=== PATIENT | female | born 1945 | race African-American/Black ===

== ENCOUNTER 2018-01-14 18:05 | Inpatient (IN) | payer MEDICARE, OTHER ==
[~2018-01-14] VITALS: Ht 157.5 cm; Wt 93.2 kg
[~2018-01-14 18:05] MED LIST: ACET325T9 PO; ACET650T89 PO; ALBU18HF IH; ALBU8.5H8 INH; ALPR0.254 PO; BENZ14GE MM; CITA10TA4 PO; CYCL-331 PO; FLUT1DIS3 IH; MAG30ORA2 PO; MAGN400O7 PO; MAGN64TA6 PO; METF10002 PO; METF500T4 PO; NICO1PAT27 TD; OMEP20CA9 PO; ONDA4TAB10 PO; ONDA4TAB7 PO; PIOG15TA42 PO; RISP0.2519 PO; SERT100T PO; SERT50TA PO; TRAM50TA PO; ZOLP5TAB5 PO
--- NOTE | 2018-01-14 18:30 | EKG ---
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
--- NOTE | 2018-01-14 18:44 | PHYS DOC ---
Adult General Chief Complaint Chief Complaint: PSYCH EVALUATION HPI HPI 72-year-old female with a history of dementia skilled nursing patient now sent for evaluation of depression after having expressed suicidal ideation. Patient has stated to staff that she had a plan to cut her wrist. She did not actually do anything to hurt herself. She is not homicidal. Patient has no physical complaints. No Recent illness Review of Systems Review of Systems Constitutional: Denies fever or chills [] Eyes: Denies change in visual acuity, redness, or eye pain [] HENT: Denies nasal congestion or sore throat [] Respiratory: Denies cough or shortness of breath [] Cardiovascular: No additional information not addressed in HPI [] GI: Denies abdominal pain, nausea, vomiting, bloody stools or diarrhea [] : Denies dysuria or hematuria [] Musculoskeletal: Denies back pain or joint pain [] Integument: Denies rash or skin lesions [] Neurologic: Denies headache, focal weakness or sensory changes [] Endocrine: Denies polyuria or polydipsia [] All other systems were reviewed and found to be within normal limits, except as documented in this note. Allergies Allergies Allergies Coded Allergies Type Severity Reaction Last Updated Verified aspirin Allergy Intermediate 10/02/15 Yes Physical Exam Physical Exam Elderly chronically weak appearing female in no acute distress. She does have a depressed mood and flat affect. Mucous membranes are moist clear lungs regular rate and rhythm. Nontender abdomen normal extremities and a nonfocal neurologic exam. Constitutional: Well developed, well nourished, no acute distress, non-toxic appearance. [] HENT: Normocephalic, atraumatic, bilateral external ears normal, oropharynx moist, no oral exudates, nose normal. [] Eyes: PERRLA, EOMI, conjunctiva normal, no discharge. [] Neck: Normal range of motion, no tenderness, supple, no stridor. [] Cardiovascular:Heart rate regular rhythm, no murmur [] Lungs & Thorax: Bilateral breath sounds clear to auscultation [] Abdomen: Bowel sounds normal, soft, no tenderness, no masses, no pulsatile masses. [] Skin: Warm, dry, no erythema, no rash. [] Back: No tenderness, no CVA tenderness. [] Extremities: No tenderness, no cyanosis, no clubbing, ROM intact, 1+ nonpitting edema bilateral lower extremities with no asymmetry or tenderness Neurologic: Alert and oriented X 3, normal motor function, normal sensory function, no focal deficits noted. [] Psychologic: S mood and flat affect EKG EKG EKG with normal sinus rhythm at 69 left axis deviation and nonspecific ST and T- wave findings no STEMI interpreted by me Radiology/Procedures Radiology/Procedures [] Course & Med Decision Making Course & Med Decision Making Pertinent Labs and Imaging studies reviewed. (See chart for details) Patient with depression and suicidal ideation now sent for medical clearance for psychiatric evaluation. Well-appearing unremarkable exam. Medical clearance pending. Anticipate inpatient admission for psychiatric evaluation and treatment [] Endocrine E 33 and 1.2 consistent with prerenal azotemia. 1 L normal saline will be administered. Blood glucose mildly elevated at 2:30 consistent with patient's history of type 2 diabetes. After hydration no further workup or treatment will be indicated in the emergency department and patient be cleared for psychiatric evaluation Dragon Disclaimer Dragon Disclaimer This electronic medical record was generated, in whole or in part, using a voice recognition dictation system. Departure Departure: Impression: Primary Impression: Depression Additional Impressions: Suicidal ideation Prerenal azotemia Hyperglycemia Disposition: ADMITTED INPATIENT Admitting Physician: Other Condition: STABLE Referrals: JANEL ANGEL (PCP) Problem Qualifiers LARISSA NESS MD Jan 14, 2018 18:44
[2018-01-14 19:14] LABS: BASO % 0 % (0-3); EOS # 0.1 x10^3/uL (0.0-0.7); EOS % 1 % (0-3); HEMATOCRIT 31.1 % (36.0-47.0); HEMOGLOBIN 10.1 g/dL (12.0-15.5); LYMPH # 2.4 x10^3/uL (1.0-4.8); LYMPH % 30 % (24-48); MEAN CORPUSCULAR HEMOGLOBIN 27 pg (25-35); MEAN CORPUSCULAR HGB CONC 32 g/dL (31-37); MEAN CORPUSCULAR VOLUME 84 fL (79-100); MONO # 0.5 x10^3/uL (0.0-1.1); MONO % 7 % (0-9); NEUT % 62 % (31-73); PLATELET COUNT 266 x10^3/uL (140-400); RED BLOOD COUNT 3.72 x10^6/uL (3.50-5.40); RED CELL DISTRIBUTION WIDTH 17.1 % (11.5-14.5); WHITE BLOOD COUNT 8.1 x10^3/uL (4.0-11.0)
[2018-01-14 19:20] LABS: CALCIUM 9.2 mg/dL (8.5-10.1); CREATININE 1.2 mg/dL (0.6-1.0); GFR 53.4; POTASSIUM 4.8 mmol/L (3.5-5.1)
[2018-01-14 20:06] LABS: BILIRUBIN,URINE NEG (NEG); CLARITY,URINE CLEAR; COLOR,URINE STRAW; GLUCOSE,URINE NEG (NEG)
[2018-01-14 20:07] LABS: BACTERIA,URINE 0 /HPF (0-FEW); NITRITE,URINE NEG (NEG); RBC,URINE 0 /HPF (0-2); SQUAMOUS EPITHELIAL CELL,UR OCC /LPF; UROBILINOGEN,URINE 0.2 mg/dL (0.2 mg/dL)
[2018-01-14] MEDS ORDERED: ACETAMINOPHEN 325 MG TABLET PO ONE (20:15)
[2018-01-14] MEDS ORDERED: IV NORMAL SALINE 1,000ML 1,000 ML IV ONE (20:30)
[2018-01-14] MEDS ORDERED: NAPR-683 PO (21:34)
[2018-01-14] MEDS ORDERED: BUDE0.5A11 NEB (21:34)
[2018-01-14] MEDS ORDERED: HYDR25SU18 RC (21:34)
[2018-01-14] MEDS ORDERED: DEXT15DR5 OU (21:34)
[2018-01-14] MEDS ORDERED: GLIM1TAB PO (21:34)
[2018-01-14] MEDS ORDERED: AMLO10TA4 PO (21:34)
[2018-01-14] MEDS ORDERED: DICL100G18 TP (21:34)
[2018-01-14] MEDS ORDERED: NYST15PO9 TP (21:34)
[2018-01-14] MEDS ORDERED: HYDR30CR61 RC (21:34)
[2018-01-14] MEDS ORDERED: NITR0.4T SL (21:34)
[2018-01-14] MEDS ORDERED: ALPR0.5T6 PO (21:34)
[2018-01-14] MEDS ORDERED: ALBU2.5V5 NEB (21:34)
[2018-01-14] MEDS ORDERED: DICY10CA3 PO (21:34)
[2018-01-14] MEDS ORDERED: ACET325T9 PO (21:34)
[2018-01-14] MEDS ORDERED: ONDA4TAB11 PO (21:34)
[2018-01-14] MEDS ORDERED: FERR325T14 PO (21:34)
[2018-01-14] MEDS ORDERED: MELA1TAB2 PO (21:34)
[2018-01-14] MEDS ORDERED: LOPE2TAB27 PO (21:34)
[2018-01-14] MEDS ORDERED: GABA-586 PO (21:34)
[2018-01-14] MEDS ORDERED: LEVE500T56 PO (21:34)
[2018-01-14] MEDS ORDERED: DIPH25CA58 PO (21:34)
[2018-01-14] MEDS ORDERED: GUAI237L83 PO (21:35)
[2018-01-14] MEDS ORDERED: ASCO-78 PO (21:35)
[2018-01-14] MEDS ORDERED: OXYC-328 PO ×2 (21:35)
[2018-01-14] MEDS ORDERED: RANI150T6 PO (21:35)
[2018-01-15] MEDS ORDERED: PYRIDOXINE PO PRN
[2018-01-15] MEDS ORDERED: ACETAMINOPHEN 325 MG TABLET PO PRN
[2018-01-15] MEDS ORDERED: ALPRAZolam 0.25 MG TABLET PO PRN
[2018-01-15] MEDS ORDERED: MELATONIN PO PRN
[2018-01-15] MEDS ORDERED: MAG HYDROX/AL HYDROX/SIMETH 30 ML ORAL.SUSP PO PRN
[2018-01-15] MEDS ORDERED: MAGNESIUM HYDROXIDE 2,400 MG/30 ML ORAL.SUSP. PO PRN (00:15)
[2018-01-15] MEDS ORDERED: ALBUTEROL SULFATE 2.5 MG/3 ML NEBU. NEB PRN (00:15)
[2018-01-15] MEDS ORDERED: LOPERAMIDE 2 MG CAPSULE PO PRN (00:15)
[2018-01-15] MEDS ORDERED: BUDESONIDE 0.5 MG/2 ML NEBU NEB PRN (00:15)
[2018-01-15] MEDS ORDERED: guaiFENesin DM 200MG/20MG 10 ML SYRUP PO PRN (00:15)
[2018-01-15] MEDS ORDERED: NYSTATIN TOPICAL POWDER 15GM BOTTLE. TP PRN (00:15)
[2018-01-15] MEDS ORDERED: DICYCLOMINE HCL 10 MG CAPSULE PO PRN (00:15)
[2018-01-15] MEDS ORDERED: ONDANSETRON ODT 4 MG TAB.RAPDIS PO PRN (00:15)
[2018-01-15] MEDS ORDERED: HYDROCORTISONE ACETATE 25 MG SUPP.RECT RC PRN (00:15)
[2018-01-15] MEDS ORDERED: HYDROCORTISONE 2.5% RECTAL CREAM 30GM TUBE. RC PRN (00:15)
[2018-01-15] MEDS ORDERED: POLYVINYL ALCOHOL 1.4% OPHTH SOLUTION 15ML BOTTLE. OU PRN (00:15)
[2018-01-15] MEDS ORDERED: NITROGLYCERIN SUBLINGUAL 0.4 MG BOTTLE OF 25. SL PRN (00:15)
[2018-01-15 03:10] VITALS: BP 170/68
[2018-01-15 05:48] VITALS: BP 158/59
[2018-01-15] MEDS: PIOGLITAZONE 15 MG TABLET. PO SCH (08:48)
[2018-01-15] MEDS: oxyCODONE/APAP 10/325 1 TAB TABLET PO SCH ×2 (08:48→19:57)
[2018-01-15] MEDS: FAMOTIDINE 20 MG TABLET PO SCH ×2 (08:48→19:56)
[2018-01-15] MEDS: ALPRAZolam 0.5 MG TABLET PO SCH ×2 (08:48→19:57)
[2018-01-15] MEDS: amLODIPine BESYLATE 10 MG TABLET PO SCH (08:49)
[2018-01-15] MEDS: GLIMEPIRIDE 2 MG TABLET PO SCH (08:49)
[2018-01-15] MEDS: ASCORBIC ACID 500 MG TABLET PO SCH (08:49)
[2018-01-15] MEDS: FERROUS SULFATE 325 MG TABLET. PO SCH (08:50)
[2018-01-15] MEDS: GABAPENTIN 300 MG CAPSULE. PO SCH ×3 (08:50→19:56)
[2018-01-15] MEDS: SERTRALINE 100 MG TABLET. PO SCH (08:50)
[2018-01-15] MEDS: levETIRAcetam 500 MG TABLET PO SCH ×2 (08:50→19:56)
[2018-01-15 11:03] LABS: THYROID STIM HORMONE (TSH) 2.303 uIU/mL (0.358-3.740)
[2018-01-15 12:11] LABS: T3 TOTAL 69 ng/dL (71-180); THYROXINE 4.9 ug/dL (4.5-12.0)
[2018-01-15] MEDS: oxyCODONE/APAP 10/325 1 TAB TABLET PO PRN (13:59)
[2018-01-15 15:59] VITALS: BP 132/64
[2018-01-15] MEDS: MELATONIN 3 MG TABLET PO SCH (19:56)
[2018-01-15] MEDS: diphenhydrAMINE HCL 25 MG CAPSULE PO SCH (19:57)
--- NOTE | 2018-01-15 20:03 | PDOC ---
Exam Note: Neal Note: Please also refer to the separate dictated note~for this date of service dictated separately.~Patient seen individually. Discussed the patient with Nursing staff reviewed the chart.~Reviewed interim history and current functioning. Reviewed vital signs,~Labs/ Radiology~and current medications noted below. Continue current treatment with the changes noted in the dictated addendum note Assessment: Vital Signs: Vital Signs Date Time Temp Pulse Resp B/P (MAP) Pulse Ox O2 Delivery O2 Flow Rate FiO2 01/15/18 15:59 97.5 68 16 132/64 (86) 97 01/14/18 23:40 Room Air I&O Intake and Output 01/15/18 07:00 Intake Total 120 ml Balance 120 ml Intake Oral 120 ml Labs: Laboratory Tests Test 01/14/18 23:59 01/15/18 07:45 01/15/18 12:12 01/15/18 16:54 Magnesium Level 1.9 mg/dL (1.8-2.4) Iron Level 26 ug/dL (50-170) L Total Iron Binding Capacity 279 ug/dL (250-450) Iron Saturation 9 % (15-34) L Triglycerides Level 113 mg/dL (0-150) Cholesterol Level 147 mg/dL (0-200) LDL Cholesterol, Calculated 83 mg/dL (0-100) VLDL Cholesterol, Calculated 22 mg/dL (0-40) Non-HDL Cholesterol Calculated 105 mg/dL (0-129) HDL Cholesterol 42 mg/dL (40-60) Cholesterol/HDL Ratio 3.0 Thyroid Stimulating Hormone (TSH) 2.303 uIU/mL (0.358-3.740) Thyroxine (T4) 4.9 ug/dL (4.5-12.0) Total Triiodothyronine (TT3) 69 ng/dL (71-180) L Rapid Plasma Reagin Pending Glucose (Fingerstick) 92 mg/dL (70-99) 100 mg/dL (70-99) H 118 mg/dL (70-99) H Test 01/15/18 19:00 Glucose (Fingerstick) 128 mg/dL (70-99) H Current Medications: Meds: Current Medications Acetaminophen (Tylenol) 650 mg 1X ONCE PO Last administered on 01/14/18at 20:17 ; Start 01/14/18 at 20:15; Stop 01/14/18 at 20:16; Status DC Sodium Chloride 1,000 ml @ 1,000 mls/hr 1X ONCE IV Last administered on at 21:00; Start 01/14/18 at 20:30; Stop 01/14/18 at 21:29; Status DC Acetaminophen (Tylenol) 650 mg PRN Q6HRS PRN PO PAIN / TEMP; Start 01/15/18 at 00:00 Al Hydroxide/Mg Hydroxide (Mylanta Plus Xs) 15 ml PRN AFTMEALHC PRN PO DYSPEPSIA; Start 01/15/18 at 00:00 Magnesium Hydroxide (Milk Of Magnesia) 2,400 mg PRN QHS PRN PO CONSTIPATION; Start 01/15/18 at 00:00 Alprazolam (Xanax) 0.25 mg PRN Q8HRS PRN PO ANXIETY / AGITATION; Start 01/15/18 at 00:00 Alprazolam (Xanax) 0.5 mg BID PO Last administered on 01/15/18at 19:57; Start 01/15/18 at 09:00 Sertraline HCl (Zoloft) 150 mg DAILY PO Last administered on 01/15/18at 08:50; Start 01/15/18 at 09:00 Non-Formulary Medication (Melatonin/ Pyridoxine (Melatonin 5 Mg Tablet)) 5 mg PRN QHS PRN PO INSOMNIA; Start 01/15/18 at 00:00; Stop 01/15/18 at 04:40; Status DC Albuterol Sulfate (Ventolin) 2.5 mg PRN Q4HRS PRN NEB Dyspnea; Start 01/15/18 at 00:15 Amlodipine Besylate (Norvasc) 10 mg DAILY PO Last administered on 01/15/18at 08: 49; Start 01/15/18 at 09:00 Budesonide (Pulmicort) 0.5 mg PRN BID PRN NEB SHORTNESS OF BREATH; Start at 00:15 Diclofenac Sodium (Voltaren) 4 sam PRN QID PRN TP R Knee Pain; Start 01/15/18 at 00:15 Dicyclomine HCl (Bentyl) 10 mg PRN Q8HRS PRN PO Bowel Cramps; Start 01/15/18 at 00:15 Diphenhydramine HCl (Benadryl) 25 mg QHS PO Last administered on 01/15/18 19:57 ; Start 01/15/18 at 21:00 Ferrous Sulfate (Feosol) 325 mg DAILY PO Last administered on 01/15/18 08:50; Start 01/15/18 at 09:00 Gabapentin (Neurontin) 300 mg TID PO Last administered on 01/15/18 19:56; Start 01/15/18 at 09:00 Hydrocortisone (Proctosol-Hc) 1 sam PRN Q24HRS PRN RC Hemorrhoids; Start at 00:15 Hydrocortisone Acetate (Anucort-Hc) 25 mg PRN Q12HR PRN RC Hemorroids; Start at 00:15 Levetiracetam (Keppra) 500 mg BID PO Last administered on 01/15/18 19:56; Start 01/15/18 at 09:00 Magnesium Hydroxide (Milk Of Magnesia) 2,400 mg PRN QHS PRN PO CONSTIPATION; Start 01/15/18 at 00:15; Status UNV Nitroglycerin (Nitrostat) 0.4 mg PRN Q5MIN PRN SL CHEST PAIN; Start 01/15/18 at 00:15 Nystatin (Nystop) 1 sam PRN TID PRN TP REDNESS; Start 01/15/18 at 00:15 Oxycodone/ Acetaminophen (Percocet 10/325) 1 tab BID PO Last administered on 19:57; Start 01/15/18 at 09:00 Oxycodone/ Acetaminophen (Percocet 10/325) 1 tab PRN Q4HRS PRN PO PAIN Last administered on 01/15/18 13:59; Start 01/15/18 at 00:15 Pioglitazone HCl (Actos) 15 mg DAILYWBKFT PO Last administered on 01/15/18 08: 48; Start 01/15/18 at 08:00 Ascorbic Acid (Vitamin C) 500 mg DAILY PO Last administered on 01/15/18 08:49; Start 01/15/18 at 09:00 Artificial Tears (Artificial Tears) 1 drop PRN TID PRN OU DRY EYE; Start at 00:15 Glimepiride (Amaryl) 1 mg DAILY PO Last administered on 4/7/18at 08:49; Start 01/15/18 at 09:00 Guaifenesin (Robitussin Dm) 10 ml PRN Q4HRS PRN PO COUGH; Start 01/15/18 at 00: 15 Loperamide HCl (Imodium) 2 mg PRN Q4HRS PRN PO DIARRHEA; Start 01/15/18 at 00:15 Ondansetron HCl (Zofran Odt) 4 mg PRN Q4HRS PRN PO NAUSEA/VOMITING; Start at 00:15 Famotidine (Pepcid) 20 mg BID PO Last administered on 01/15/18at 19:56; Start 01/15/18 at 09:00 Melatonin 6 mg QHS PO Last administered on 01/15/18at 19:56; Start 01/15/18 at 21: 00 Active Scripts Active Reported Zantac (Ranitidine Hcl) 150 Mg Tablet 150 Mg PO BID Vitamin C (Ascorbate Calcium) 500 Mg Tablet 500 Mg PO DAILY Robitussin Cough-Chest Dm Liq (Guaifenesin/Dextromethorphan) 237 Ml Liquid 10 Ml PO PRN Q4HRS PRN Percocet 10-325 Mg Tablet (Oxycodone Hcl/Acetaminophen) 1 Each Tablet 1 Tab PO PRN Q4HRS PRN Percocet 10-325 Mg Tablet (Oxycodone Hcl/Acetaminophen) 1 Each Tablet 1 Tab PO BID Ondansetron Hcl 4 Mg Tablet 4 Mg PO PRN Q4HRS PRN Nystatin 15 Gm Powder 1 Sam TP PRN TID PRN Nitrostat (Nitroglycerin) 0.4 Mg Tab.subl 0.4 Mg SL PRN Q5MIN PRN MDD 3tabs Naprosyn (Naproxen) 500 Mg Tablet 500 Mg PO PRN Q12HR PRN Melatonin 5 Mg Tablet (Melatonin/Pyridoxine) 1 Each Tablet 5 Mg PO PRN QHS PRN Loperamide (Loperamide Hcl) 2 Mg Tablet 2 Mg PO PRN Q4HRS PRN MDD 16mg Keppra (Levetiracetam) 500 Mg Tablet 500 Mg PO BID Ferrous Sulfate 325 Mg Tablet 325 Mg PO DAILY Neurontin (Gabapentin) 300 Mg Capsule 300 Mg PO TID Voltaren (Diclofenac Sodium) 100 Gm Gel..gram. 4 Gm TP PRN QID PRN Budesonide 0.5 Mg/2 Ml Ampul.neb 0.5 Mg NEB PRN BID PRN Dicyclomine Hcl 10 Mg Capsule 10 Mg PO PRN Q8HRS PRN Benadryl (Diphenhydramine Hcl) 25 Mg Capsule 25 Mg PO QHS Artificial Tears Eye Drops (Dextran 70/Hypromellose) 15 Ml Drops 1 Drop OU TID PRN Anusol-Hc (Hydrocortisone Acetate) 25 Mg Supp.rect 25 Mg RC PRN Q12HR PRN Anusol-Hc (Hydrocortisone) 30 Gm Cream..g. 1 Sam RC PRN Q24HRS PRN Norvasc (Amlodipine Besylate) 10 Mg Tablet 10 Mg PO DAILY Amaryl (Glimepiride) 1 Mg Tablet 1 Mg PO DAILY Alprazolam 0.5 Mg Tablet 0.5 Mg PO BID Tylenol (Acetaminophen) 325 Mg Tablet 650 Mg PO PRN Q4HRS PRN Albuterol Sulfate Neb Soln (Albuterol Sulfate) 2.5 Mg/3 Ml Vial.neb 2.5 Mg NEB PRN Q4HRS PRN Zoloft (Sertraline Hcl) 100 Mg Tablet 150 Mg PO DAILY Milk Of Magnesia (Magnesium Hydroxide) 400 Mg/5 Ml Oral.susp 2,400 Mg PO PRN QHS PRN Alprazolam 0.25 Mg Tablet 0.25 Mg PO PRN Q8HRS PRN Actos (Pioglitazone Hcl) 15 Mg Tablet 15 Mg PO DAILYWBKFT I have reviewed the current psychotropics carefully including drug interactions. Risk benefit ratio favors no change other than as noted in my dictated progress note. Diagnosis: Problems: (1) Anxiety disorder (2) Impulse control disorder (3) Mild cognitive impairment (4) Major depressive disorder, recurrent episode BEA SAWANT MD Jan 15, 2018 20:03
--- NOTE | 2018-01-15 21:02 | HP ---
ADMIT DATE: 01/15/2018 This note covers elements not covered in my initial note 01/15/2018. The patient was seen individually evening of 01/15/2018. Discussed with nursing staff several times prior to the patient's admission and since her admission to gather background historical information resulting in this referral from [facility] on account of worsening symptoms of depression, hopelessness, helplessness, making suicidal ideation reported by the patient with a plan to overdose on pills or cut herself with a knife. The patient was seen individually evening of 01/15/2018. Discussed with nursing staff, reviewed the chart. CHIEF COMPLAINT: "I have been very depressed. I lost my mother and father. There is nothing to live for. I was thinking of committing suicide. I get forgetful." HISTORY OF PRESENT ILLNESS: The patient relates worsening symptoms of depression over the past few weeks. She admits to some sleep and appetite changes, feeling hopeless, helpless, worthless, somewhat paranoid, more confused with suicidal ideation with plan as noted above. She is also being extremely anxious. No clear history of bipolar disorder or homicidal ideation. PAST PSYCHIATRIC HISTORY: As noted above. PAST MEDICAL HISTORY: Positive for diabetes mellitus, hyperlipidemia, sleep apnea, hypertension, status post CVA, COPD, GERD, seizure disorder. Accu-Chek, a.c. and bedtime. Diet regular. ALLERGIES: ASPIRIN. Takes her medications whole. Ambulates, wheelchair or walker. UA negative. CURRENT PSYCHOTROPICS: Xanax 0.5 mg b.i.d. plus 0.25 mg q. 8 hours p.r.n., Zoloft 150 mg a day, melatonin 6 mg at bedtime, Keppra 500 mg b.i.d. for seizure disorder. FAMILY HISTORY: Noncontributory. 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 No alcohol, drug abuse, physical, sexual or elder abuse history is noted. Not known to be a perpetrator. REACTION TO HOSPITALIZATION: The patient accepting of it. ASSETS: Stable living at the [facility]. MENTAL STATUS EXAMINATION: The patient was seen individually evening of 01/15/2018. She appears quite depressed, withdrawn, anxious, restless, unable to answer questions about where she worked before she retired. Speech is otherwise coherent. Mood is depressed, anxious. Affect is mood congruent, short term memory is impaired. Attention span short, language function intact. Mood and affect depressed. She denies active suicidal ideation at this time. LABORATORY DATA: Reviewed. IMPRESSION: Major depressive disorder, recurrent, rule out psychotic features; anxiety disorder, unspecified; cognitive disorder, unspecified versus major neurocognitive disorder, early vascular with depression, delusion. Rest unchanged as noted above. PLAN: Admit to the [facility]iat[facility] Unit at [facility]. I will see the patient daily individually from a psychiatric standpoint. Medical followup per Dr. Mcguire/Dr Kolb. Continue the patient on her current psychotropics, Zoloft 150 mg a day, melatonin 6 mg at bedtime, Keppra 500 b.i.d., Xanax 0.5 b.i.d. plus p.r.n. Observe baseline, adjust further as clinically indicated. Consider Abilify as an augmentation for the Zoloft. BEA SAWANT MD DR: MARK/daphne JOB#: [id number] / [id number]
[2018-01-15 22:13] LABS: HEMOGLOBIN A1C 5.7 % (4.8-5.6)
--- NOTE | 2018-01-15 22:47 | PDOC ---
Exam Note: Neal Note: Please also refer to the separate dictated note~for this date of service dictated separately.~Patient seen individually. Discussed the patient with Nursing staff reviewed the chart.~Reviewed interim history and current functioning. Reviewed vital signs,~Labs/ Radiology~and current medications noted below. Continue current treatment with the changes noted in the dictated addendum note Assessment: Vital Signs: Vital Signs Date Time Temp Pulse Resp B/P (MAP) Pulse Ox O2 Delivery O2 Flow Rate FiO2 01/15/18 15:59 97.5 68 16 132/64 (86) 97 01/14/18 23:40 Room Air I&O Intake and Output 01/15/18 07:00 Intake Total 120 ml Balance 120 ml Intake Oral 120 ml Labs: Laboratory Tests Test 01/14/18 23:59 01/15/18 07:45 01/15/18 12:12 01/15/18 16:54 Hemoglobin A1c 5.7 % (4.8-5.6) H Magnesium Level 1.9 mg/dL (1.8-2.4) Iron Level 26 ug/dL (50-170) L Total Iron Binding Capacity 279 ug/dL (250-450) Iron Saturation 9 % (15-34) L Triglycerides Level 113 mg/dL (0-150) Cholesterol Level 147 mg/dL (0-200) LDL Cholesterol, Calculated 83 mg/dL (0-100) VLDL Cholesterol, Calculated 22 mg/dL (0-40) Non-HDL Cholesterol Calculated 105 mg/dL (0-129) HDL Cholesterol 42 mg/dL (40-60) Cholesterol/HDL Ratio 3.0 Thyroid Stimulating Hormone (TSH) 2.303 uIU/mL (0.358-3.740) Thyroxine (T4) 4.9 ug/dL (4.5-12.0) Total Triiodothyronine (TT3) 69 ng/dL (71-180) L Rapid Plasma Reagin Pending Glucose (Fingerstick) 92 mg/dL (70-99) 100 mg/dL (70-99) H 118 mg/dL (70-99) H Test 01/15/18 19:00 Glucose (Fingerstick) 128 mg/dL (70-99) H Current Medications: Meds: Current Medications Acetaminophen (Tylenol) 650 mg 1X ONCE PO Last administered on 01/14/18at 20:17 ; Start 01/14/18 at 20:15; Stop 01/14/18 at 20:16; Status DC Sodium Chloride 1,000 ml @ 1,000 mls/hr 1X ONCE IV Last administered on at 21:00; Start 01/14/18 at 20:30; Stop 01/14/18 at 21:29; Status DC Acetaminophen (Tylenol) 650 mg PRN Q6HRS PRN PO PAIN / TEMP; Start 01/15/18 at 00:00 Al Hydroxide/Mg Hydroxide (Mylanta Plus Xs) 15 ml PRN AFTMEALHC PRN PO DYSPEPSIA; Start 01/15/18 at 00:00 Magnesium Hydroxide (Milk Of Magnesia) 2,400 mg PRN QHS PRN PO CONSTIPATION; Start 01/15/18 at 00:00 Alprazolam (Xanax) 0.25 mg PRN Q8HRS PRN PO ANXIETY / AGITATION; Start 01/15/18 at 00:00 Alprazolam (Xanax) 0.5 mg BID PO Last administered on 01/15/18at 19:57; Start 01/15/18 at 09:00 Sertraline HCl (Zoloft) 150 mg DAILY PO Last administered on 01/15/18at 08:50; Start 01/15/18 at 09:00 Non-Formulary Medication (Melatonin/ Pyridoxine (Melatonin 5 Mg Tablet)) 5 mg PRN QHS PRN PO INSOMNIA; Start 01/15/18 at 00:00; Stop 01/15/18 at 04:40; Status DC Albuterol Sulfate (Ventolin) 2.5 mg PRN Q4HRS PRN NEB Dyspnea; Start 01/15/18 at 00:15 Amlodipine Besylate (Norvasc) 10 mg DAILY PO Last administered on 01/15/18at 08: 49; Start 01/15/18 at 09:00 Budesonide (Pulmicort) 0.5 mg PRN BID PRN NEB SHORTNESS OF BREATH; Start at 00:15 Diclofenac Sodium (Voltaren) 4 sam PRN QID PRN TP R Knee Pain; Start 01/15/18 at 00:15 Dicyclomine HCl (Bentyl) 10 mg PRN Q8HRS PRN PO Bowel Cramps; Start 01/15/18 at 00:15 Diphenhydramine HCl (Benadryl) 25 mg QHS PO Last administered on 01/15/18 19:57 ; Start 01/15/18 at 21:00 Ferrous Sulfate (Feosol) 325 mg DAILY PO Last administered on 01/15/18at 08:50; Start 01/15/18 at 09:00 Gabapentin (Neurontin) 300 mg TID PO Last administered on 01/15/18 19:56; Start 01/15/18 at 09:00 Hydrocortisone (Proctosol-Hc) 1 sam PRN Q24HRS PRN RC Hemorrhoids; Start at 00:15 Hydrocortisone Acetate (Anucort-Hc) 25 mg PRN Q12HR PRN RC Hemorroids; Start at 00:15 Levetiracetam (Keppra) 500 mg BID PO Last administered on 01/15/18 19:56; Start 01/15/18 at 09:00 Magnesium Hydroxide (Milk Of Magnesia) 2,400 mg PRN QHS PRN PO CONSTIPATION; Start 01/15/18 at 00:15; Status UNV Nitroglycerin (Nitrostat) 0.4 mg PRN Q5MIN PRN SL CHEST PAIN; Start 01/15/18 at 00:15 Nystatin (Nystop) 1 sam PRN TID PRN TP REDNESS; Start 01/15/18 at 00:15 Oxycodone/ Acetaminophen (Percocet 10/325) 1 tab BID PO Last administered on 19:57; Start 01/15/18 at 09:00 Oxycodone/ Acetaminophen (Percocet 10/325) 1 tab PRN Q4HRS PRN PO PAIN Last administered on 01/15/18 13:59; Start 01/15/18 at 00:15 Pioglitazone HCl (Actos) 15 mg DAILYWBKFT PO Last administered on 01/15/18at 08: 48; Start 01/15/18 at 08:00 Ascorbic Acid (Vitamin C) 500 mg DAILY PO Last administered on 01/15/18at 08:49; Start 01/15/18 at 09:00 Artificial Tears (Artificial Tears) 1 drop PRN TID PRN OU DRY EYE; Start at 00:15 Glimepiride (Amaryl) 1 mg DAILY PO Last administered on 01/15/18at 08:49; Start 01/15/18 at 09:00 Guaifenesin (Robitussin Dm) 10 ml PRN Q4HRS PRN PO COUGH; Start 01/15/18 at 00: 15 Loperamide HCl (Imodium) 2 mg PRN Q4HRS PRN PO DIARRHEA; Start 01/15/18 at 00:15 Ondansetron HCl (Zofran Odt) 4 mg PRN Q4HRS PRN PO NAUSEA/VOMITING; Start at 00:15 Famotidine (Pepcid) 20 mg BID PO Last administered on 01/15/18at 19:56; Start 01/15/18 at 09:00 Melatonin 6 mg QHS PO Last administered on 01/15/18at 19:56; Start 01/15/18 at 21: 00 Active Scripts Active Reported Zantac (Ranitidine Hcl) 150 Mg Tablet 150 Mg PO BID Vitamin C (Ascorbate Calcium) 500 Mg Tablet 500 Mg PO DAILY Robitussin Cough-Chest Dm Liq (Guaifenesin/Dextromethorphan) 237 Ml Liquid 10 Ml PO PRN Q4HRS PRN Percocet 10-325 Mg Tablet (Oxycodone Hcl/Acetaminophen) 1 Each Tablet 1 Tab PO PRN Q4HRS PRN Percocet 10-325 Mg Tablet (Oxycodone Hcl/Acetaminophen) 1 Each Tablet 1 Tab PO BID Ondansetron Hcl 4 Mg Tablet 4 Mg PO PRN Q4HRS PRN Nystatin 15 Gm Powder 1 Sam TP PRN TID PRN Nitrostat (Nitroglycerin) 0.4 Mg Tab.subl 0.4 Mg SL PRN Q5MIN PRN MDD 3tabs Naprosyn (Naproxen) 500 Mg Tablet 500 Mg PO PRN Q12HR PRN Melatonin 5 Mg Tablet (Melatonin/Pyridoxine) 1 Each Tablet 5 Mg PO PRN QHS PRN Loperamide (Loperamide Hcl) 2 Mg Tablet 2 Mg PO PRN Q4HRS PRN MDD 16mg Keppra (Levetiracetam) 500 Mg Tablet 500 Mg PO BID Ferrous Sulfate 325 Mg Tablet 325 Mg PO DAILY Neurontin (Gabapentin) 300 Mg Capsule 300 Mg PO TID Voltaren (Diclofenac Sodium) 100 Gm Gel..gram. 4 Gm TP PRN QID PRN Budesonide 0.5 Mg/2 Ml Ampul.neb 0.5 Mg NEB PRN BID PRN Dicyclomine Hcl 10 Mg Capsule 10 Mg PO PRN Q8HRS PRN Benadryl (Diphenhydramine Hcl) 25 Mg Capsule 25 Mg PO QHS Artificial Tears Eye Drops (Dextran 70/Hypromellose) 15 Ml Drops 1 Drop OU TID PRN Anusol-Hc (Hydrocortisone Acetate) 25 Mg Supp.rect 25 Mg RC PRN Q12HR PRN Anusol-Hc (Hydrocortisone) 30 Gm Cream..g. 1 Sam RC PRN Q24HRS PRN Norvasc (Amlodipine Besylate) 10 Mg Tablet 10 Mg PO DAILY Amaryl (Glimepiride) 1 Mg Tablet 1 Mg PO DAILY Alprazolam 0.5 Mg Tablet 0.5 Mg PO BID Tylenol (Acetaminophen) 325 Mg Tablet 650 Mg PO PRN Q4HRS PRN Albuterol Sulfate Neb Soln (Albuterol Sulfate) 2.5 Mg/3 Ml Vial.neb 2.5 Mg NEB PRN Q4HRS PRN Zoloft (Sertraline Hcl) 100 Mg Tablet 150 Mg PO DAILY Milk Of Magnesia (Magnesium Hydroxide) 400 Mg/5 Ml Oral.susp 2,400 Mg PO PRN QHS PRN Alprazolam 0.25 Mg Tablet 0.25 Mg PO PRN Q8HRS PRN Actos (Pioglitazone Hcl) 15 Mg Tablet 15 Mg PO DAILYWBKFT I have reviewed the current psychotropics carefully including drug interactions. Risk benefit ratio favors no change other than as noted in my dictated progress note. Diagnosis: Problems: (1) Depression (2) Hyperglycemia (3) Suicidal ideation (4) Anxiety disorder (5) Impulse control disorder (6) Major depressive disorder, recurrent episode (7) Mild cognitive impairment BEA SAWANT MD Jan 15, 2018 22:47
[2018-01-16 05:54] VITALS: BP 146/59
[2018-01-16] MEDS: FAMOTIDINE 20 MG TABLET PO SCH ×2 (07:41→20:02)
[2018-01-16] MEDS: levETIRAcetam 500 MG TABLET PO SCH ×2 (07:41→20:02)
[2018-01-16] MEDS: PIOGLITAZONE 15 MG TABLET. PO SCH (07:41)
[2018-01-16] MEDS: SERTRALINE 100 MG TABLET. PO SCH (07:42)
[2018-01-16] MEDS: GABAPENTIN 300 MG CAPSULE. PO SCH ×3 (07:42→20:02)
[2018-01-16] MEDS: amLODIPine BESYLATE 10 MG TABLET PO SCH (07:42)
[2018-01-16] MEDS: ASCORBIC ACID 500 MG TABLET PO SCH (07:43)
[2018-01-16] MEDS: FERROUS SULFATE 325 MG TABLET. PO SCH (07:43)
[2018-01-16] MEDS: ALPRAZolam 0.5 MG TABLET PO SCH ×2 (07:43→20:02)
[2018-01-16] MEDS: GLIMEPIRIDE 2 MG TABLET PO SCH (07:43)
[2018-01-16] MEDS: oxyCODONE/APAP 10/325 1 TAB TABLET PO SCH ×2 (07:45→20:01)
[2018-01-16] MEDS: DICLOFENAC SODIUM 1% TOPICAL GEL 100GM TUBE. TP PRN ×2 (09:49→10:20)
--- NOTE | 2018-01-16 12:43 | CONS ---
DATE OF CONSULTATION: 01/15/2018 REASON FOR CONSULTATION: Medical management. HISTORY OF PRESENT ILLNESS: The patient is a 72-year-old -Polish female patient, a resident at [facility], who was admitted on account of increased depression, increased anxiety, suicidal ideation with a plan overdose on pills or cut herself with a knife, all this in a background of major depressive disorder. On questioning her, she stated that her sons does not keep in touch with her, only her daughter. Her parents and two of her husbands has recently. She is also concerned that she was told that she has COPD and she never smoked, but said that her father, brother, and sister, all are heavy smokers. PAST MEDICAL HISTORY: Significant for diabetes mellitus, hyperlipidemia, obstructive sleep apnea, hypertension, CVA, COPD, gastroesophageal reflux disease and morbid obesity. PAST SURGICAL HISTORY: Significant for right total knee arthroplasty. ALLERGIES: She is allergic to ASPIRIN. MEDICATIONS: She is currently on following medications: She is on diphenhydramine 25 mg at bedtime, dicyclomine 10 mg every 8 hours, albuterol sulfate 2.5 mg in 3 mL by nebulizer every 4 hours, ferrous sulfate 325 mg daily, nitroglycerin 0.4 mg sublingually every 5 minutes, amlodipine besylate 10 mg once a day, diclofenac sodium 100 gram gel applied 4 grams topically 4 times a day as needed, naproxen 500 mg twice a day, oxycodone/APAP 10/325 one tablet twice a day, oxycodone/APAP 10/325 one tablet every 4 hours, acetaminophen 650 mg every 4 hours, gabapentin, Neurontin 300 mg 3 times a day, Keppra 500 mg twice a day, alprazolam 0.25 mg every 8 hours, alprazolam 0.5 mg twice a day, Robitussin-DM 10 mL every 4 hours as needed for cough, Pulmicort 0.5 mg 2 mL by nebulizer twice a day, artificial tears 1 drop to both eyes 3 times a day, loperamide 2 mg every 4 hours as needed, milk of magnesia 30 mL p.o. daily p.r.n. for constipation, ondansetron 4 mg every 4 hours, ranitidine 150 mg twice a day, glimepiride 1 mg daily, pioglitazone for Actos 15 mg at breakfast time. She is on hydrocortisone for Anusol cream applied topically rectally as needed, hydrocortisone acetate for nasal cream 25 mg rectally as needed every 12 hours, ascorbic acid 500 mg once a day and Melatonin/pyridoxine 5 mg as needed for insomnia. REVIEW OF SYSTEMS: As per history of present illness. PHYSICAL EXAMINATION GENERAL: When I examined her, she was sitting comfortably in her chair, in no apparent respiratory distress. She was definitely slightly pale, but no jaundice, cyanosis, or thyromegaly. No jugular venous distension. No limb edema. VITAL SIGNS: Her heart rate was 68, blood pressure 132/64, temperature was 97.5, respiratory rate was 16, and oxygen saturation was 97% on room air. HEAD, EYES, EARS, NOSE AND THROAT: Shows normocephalic and atraumatic. NECK: Supple. HEART: Showed normal first and second sounds. No gallop, rub or murmur. CHEST: Central trachea, equal bilateral expansion, air entry, second sounds, I could not appreciate any crepitation or few scattered rhonchi. ABDOMEN: Distended, soft, nontender. No guarding or rigidity. No organomegaly. All hernial orifices intact. Bowel sounds normal. NEUROLOGIC: She was awake, alert, responding appropriately. Cranial nerves intact. EXTREMITIES: She moves extremities without difficulty. She ambulates without assistance or assistive devices. LABORATORY DATA: Showed a white cell count of 8100, hemoglobin 10, hematocrit 31, MCV 84 and platelet count 266,000. Her chemistry showed a serum sodium 138, potassium 4.8, chloride 103, bicarbonate 28, anion gap of 7, BUN 33, creatinine 1.2, estimated GFR 53 mL per minute. Her glucose was 230, calcium was 9.2, magnesium was 1.2. Her serum iron was 26, TIBC was 279 and percent saturation was 9%. Her triglycerides 113, total cholesterol 147, LDL was 83, VLDL was 22, and HDL was 42, the ratio was 3. Her TSH was 2.303, total T4 was 4.9, total T3 was 69. Urinalysis was essentially unremarkable and serology showed RPR was pending. ASSESSMENT AND PLAN: In summary, this is a 72-year-old -Polish female patient, a resident at [facility], who was admitted on account of increased depression, increased anxiety, suicidal ideation with a plan to overdose on pills or cut herself with a knife. Medically, she is known to have hypertension, hyperlipidemia, morbid obesity, obstructive sleep apnea, hypertension, CVA, COPD, gastroesophageal reflux disease. Overall, the patient seems to be medically stable. I will follow all the other labs are still pending and make any necessary recommendation. Thank you, Dr. Gregory for allowing me to participate in the care. CALEB ALLEN MD DR: EMMA/daphne JOB#: [id number] / [id number]
[2018-01-16] MEDS: oxyCODONE/APAP 10/325 1 TAB TABLET PO PRN (13:33)
[2018-01-16 15:42] VITALS: BP 145/70
--- NOTE | 2018-01-16 17:06 | RAD ---
Three-view study of both knees Clinical indications: Bilateral knee pain with swelling. Right knee: Total right knee arthroplasty is evident which is well aligned. No acute fracture or osteolytic process is evident. No significant swelling of the suprapatellar bursa is seen to indicate joint effusion radiographically. 3 view left knee study: Total left knee arthroplasty is evident which is well aligned. No acute fracture or osteolytic process is seen. No significant swelling of the suprapatellar bursa is seen to indicate a joint effusion radiographically. IMPRESSION: Bilateral total knee arthroplasties. No acute fracture.
[2018-01-16] MEDS: MELATONIN 3 MG TABLET PO SCH (20:02)
[2018-01-16] MEDS: diphenhydrAMINE HCL 25 MG CAPSULE PO SCH (20:02)
--- NOTE | 2018-01-16 20:52 | PDOC ---
Exam Note: Neal Note: Please also refer to the separate dictated note~for this date of service dictated separately.~Patient seen individually. Discussed the patient with Nursing staff reviewed the chart.~Reviewed interim history and current functioning. Reviewed vital signs,~Labs/ Radiology~and current medications noted below. Continue current treatment with the changes noted in the dictated addendum note Assessment: Vital Signs: Vital Signs Date Time Temp Pulse Resp B/P (MAP) Pulse Ox O2 Delivery O2 Flow Rate FiO2 01/16/18 15:42 98.2 70 16 145/70 (95) 99 01/14/18 23:40 Room Air I&O Intake and Output 01/16/18 07:00 Intake Total 1320 ml Balance 1320 ml Intake Oral 1320 ml Labs: Laboratory Tests Test 01/16/18 07:10 Glucose (Fingerstick) 79 mg/dL (70-99) Current Medications: Meds: Current Medications Acetaminophen (Tylenol) 650 mg 1X ONCE PO Last administered on 01/14/18at 20:17 ; Start 01/14/18 at 20:15; Stop 01/14/18 at 20:16; Status DC Sodium Chloride 1,000 ml @ 1,000 mls/hr 1X ONCE IV Last administered on at 21:00; Start 01/14/18 at 20:30; Stop 01/14/18 at 21:29; Status DC Acetaminophen (Tylenol) 650 mg PRN Q6HRS PRN PO PAIN / TEMP; Start 01/15/18 at 00:00 Al Hydroxide/Mg Hydroxide (Mylanta Plus Xs) 15 ml PRN AFTMEALHC PRN PO DYSPEPSIA; Start 01/15/18 at 00:00 Magnesium Hydroxide (Milk Of Magnesia) 2,400 mg PRN QHS PRN PO CONSTIPATION; Start 01/15/18 at 00:00 Alprazolam (Xanax) 0.25 mg PRN Q8HRS PRN PO ANXIETY / AGITATION; Start 01/15/18 at 00:00 Alprazolam (Xanax) 0.5 mg BID PO Last administered on 01/16/18at 20:02; Start 01/15/18 at 09:00 Sertraline HCl (Zoloft) 150 mg DAILY PO Last administered on 01/16/18at 07:42; Start 01/15/18 at 09:00; Stop 01/16/18 at 16:24; Status DC Non-Formulary Medication (Melatonin/ Pyridoxine (Melatonin 5 Mg Tablet)) 5 mg PRN QHS PRN PO INSOMNIA; Start 01/15/18 at 00:00; Stop 01/15/18 at 04:40; Status DC Albuterol Sulfate (Ventolin) 2.5 mg PRN Q4HRS PRN NEB Dyspnea; Start 01/15/18 at 00:15 Amlodipine Besylate (Norvasc) 10 mg DAILY PO Last administered on 01/16/18at 07: 42; Start 01/15/18 at 09:00 Budesonide (Pulmicort) 0.5 mg PRN BID PRN NEB SHORTNESS OF BREATH; Start at 00:15 Diclofenac Sodium (Voltaren) 4 sam PRN QID PRN TP R Knee Pain Last administered on 01/16/18at 10:20; Start 01/15/18 at 00:15 Dicyclomine HCl (Bentyl) 10 mg PRN Q8HRS PRN PO Bowel Cramps; Start 01/15/18 at 00:15 Diphenhydramine HCl (Benadryl) 25 mg QHS PO Last administered on 01/16/18at 20:02 ; Start 01/15/18 at 21:00 Ferrous Sulfate (Feosol) 325 mg DAILY PO Last administered on 01/16/18at 07:43; Start 01/15/18 at 09:00 Gabapentin (Neurontin) 300 mg TID PO Last administered on 01/16/18at 20:02; Start 01/15/18 at 09:00 Hydrocortisone (Proctosol-Hc) 1 sam PRN Q24HRS PRN RC Hemorrhoids; Start at 00:15 Hydrocortisone Acetate (Anucort-Hc) 25 mg PRN Q12HR PRN RC Hemorroids; Start at 00:15 Levetiracetam (Keppra) 500 mg BID PO Last administered on 01/16/18at 20:02; Start 01/15/18 at 09:00 Magnesium Hydroxide (Milk Of Magnesia) 2,400 mg PRN QHS PRN PO CONSTIPATION; Start 01/15/18 at 00:15; Status UNV Nitroglycerin (Nitrostat) 0.4 mg PRN Q5MIN PRN SL CHEST PAIN; Start 01/15/18 at 00:15 Nystatin (Nystop) 1 sam PRN TID PRN TP REDNESS; Start 01/15/18 at 00:15 Oxycodone/ Acetaminophen (Percocet 10/325) 1 tab BID PO Last administered on 20:01; Start 01/15/18 at 09:00 Oxycodone/ Acetaminophen (Percocet 10/325) 1 tab PRN Q4HRS PRN PO PAIN Last administered on 01/16/18 13:33; Start 01/15/18 at 00:15 Pioglitazone HCl (Actos) 15 mg DAILYWBKFT PO Last administered on 01/16/18 07: 41; Start 01/15/18 at 08:00 Ascorbic Acid (Vitamin C) 500 mg DAILY PO Last administered on 01/16/18 07:43; Start 01/15/18 at 09:00 Artificial Tears (Artificial Tears) 1 drop PRN TID PRN OU DRY EYE; Start at 00:15 Glimepiride (Amaryl) 1 mg DAILY PO Last administered on 01/16/18 07:43; Start 01/15/18 at 09:00 Guaifenesin (Robitussin Dm) 10 ml PRN Q4HRS PRN PO COUGH; Start 01/15/18 at 00: 15 Loperamide HCl (Imodium) 2 mg PRN Q4HRS PRN PO DIARRHEA; Start 01/15/18 at 00:15 Ondansetron HCl (Zofran Odt) 4 mg PRN Q4HRS PRN PO NAUSEA/VOMITING; Start at 00:15 Famotidine (Pepcid) 20 mg BID PO Last administered on 01/16/18 20:02; Start 01/15/18 at 09:00 Melatonin 6 mg QHS PO Last administered on 01/16/18 20:02; Start 01/15/18 at 21: 00 Duloxetine HCl (Cymbalta) 30 mg DAILY PO ; Start 01/17/18 at 09:00; Stop at 23:30 Duloxetine HCl (Cymbalta) 60 mg DAILY PO ; Start 01/19/18 at 09:00 Active Scripts Active Reported Zantac (Ranitidine Hcl) 150 Mg Tablet 150 Mg PO BID Vitamin C (Ascorbate Calcium) 500 Mg Tablet 500 Mg PO DAILY Robitussin Cough-Chest Dm Liq (Guaifenesin/Dextromethorphan) 237 Ml Liquid 10 Ml PO PRN Q4HRS PRN Percocet 10-325 Mg Tablet (Oxycodone Hcl/Acetaminophen) 1 Each Tablet 1 Tab PO PRN Q4HRS PRN Percocet 10-325 Mg Tablet (Oxycodone Hcl/Acetaminophen) 1 Each Tablet 1 Tab PO BID Ondansetron Hcl 4 Mg Tablet 4 Mg PO PRN Q4HRS PRN Nystatin 15 Gm Powder 1 Sam TP PRN TID PRN Nitrostat (Nitroglycerin) 0.4 Mg Tab.subl 0.4 Mg SL PRN Q5MIN PRN MDD 3tabs Naprosyn (Naproxen) 500 Mg Tablet 500 Mg PO PRN Q12HR PRN Melatonin 5 Mg Tablet (Melatonin/Pyridoxine) 1 Each Tablet 5 Mg PO PRN QHS PRN Loperamide (Loperamide Hcl) 2 Mg Tablet 2 Mg PO PRN Q4HRS PRN MDD 16mg Keppra (Levetiracetam) 500 Mg Tablet 500 Mg PO BID Ferrous Sulfate 325 Mg Tablet 325 Mg PO DAILY Neurontin (Gabapentin) 300 Mg Capsule 300 Mg PO TID Voltaren (Diclofenac Sodium) 100 Gm Gel..gram. 4 Gm TP PRN QID PRN Budesonide 0.5 Mg/2 Ml Ampul.neb 0.5 Mg NEB PRN BID PRN Dicyclomine Hcl 10 Mg Capsule 10 Mg PO PRN Q8HRS PRN Benadryl (Diphenhydramine Hcl) 25 Mg Capsule 25 Mg PO QHS Artificial Tears Eye Drops (Dextran 70/Hypromellose) 15 Ml Drops 1 Drop OU TID PRN Anusol-Hc (Hydrocortisone Acetate) 25 Mg Supp.rect 25 Mg RC PRN Q12HR PRN Anusol-Hc (Hydrocortisone) 30 Gm Cream..g. 1 Sam RC PRN Q24HRS PRN Norvasc (Amlodipine Besylate) 10 Mg Tablet 10 Mg PO DAILY Amaryl (Glimepiride) 1 Mg Tablet 1 Mg PO DAILY Alprazolam 0.5 Mg Tablet 0.5 Mg PO BID Tylenol (Acetaminophen) 325 Mg Tablet 650 Mg PO PRN Q4HRS PRN Albuterol Sulfate Neb Soln (Albuterol Sulfate) 2.5 Mg/3 Ml Vial.neb 2.5 Mg NEB PRN Q4HRS PRN Zoloft (Sertraline Hcl) 100 Mg Tablet 150 Mg PO DAILY Milk Of Magnesia (Magnesium Hydroxide) 400 Mg/5 Ml Oral.susp 2,400 Mg PO PRN QHS PRN Alprazolam 0.25 Mg Tablet 0.25 Mg PO PRN Q8HRS PRN Actos (Pioglitazone Hcl) 15 Mg Tablet 15 Mg PO DAILYWBKFT I have reviewed the current psychotropics carefully including drug interactions. Risk benefit ratio favors no change other than as noted in my dictated progress note. Diagnosis: Problems: (1) Prerenal azotemia (2) Depression (3) Hyperglycemia (4) Suicidal ideation (5) Anxiety disorder (6) Impulse control disorder (7) Major depressive disorder, recurrent episode (8) Mild cognitive impairment BEA SAWANT MD Jan 16, 2018 20:52
--- NOTE | 2018-01-17 00:06 | PN ---
DATE: 01/16/2018 SUBJECTIVE: The patient was seen this morning at the request of the nursing staff as the patient has been complaining of pain in her right knee joint with muscle spasm. There was no history of fall or trauma. The patient has both her knee replaced years ago and has been able to ambulate with walker. She denied any chills, rigors or fever. Her past medical history is significant for diabetes mellitus, hyperlipidemia, obstructive sleep apnea, hypertension, COPD, gastroesophageal reflux disease and morbid obesity, obviously has also arthritis. No history of gout. PHYSICAL EXAMINATION: GENERAL: When I examined her, she looked well and was not really in any respiratory distress, slightly pale, but no jaundice or cyanosis. No lymphadenopathy, no thyromegaly. No jugular venous distension. No lower limb edema. VITAL SIGNS: Her heart rate was 69, blood pressure was 146/59, temperature was 97.1, respiratory rate was 18 and oxygen saturation was 98%. HEAD, EYES, EARS, NOSE AND THROAT: Showed normocephalic, atraumatic. NECK: Supple. HEART: Showed normal first and second heart sounds with no gallop, rub or murmur. CHEST: Clear to auscultation. No crepitation or rhonchi. ABDOMEN: Distended, soft, nontender. No guarding or rigidity. No organomegaly. All hernial orifice intact. Bowel sounds normal. NEUROLOGIC: She was awake, alert, responding appropriately. All cranial nerves intact. She moves extremities without difficulty. Examination of the right knee compared to the left showed there is no obvious redness or tenderness. She probably has effusion, although it is difficult to know given her size. LABORATORY DATA: As of yesterday, her most recent lab work showed a white cell count of 8000, hemoglobin 10, hematocrit 31, MCV 84 and platelet count of 266,000. Her chemistry showed a serum sodium 138, potassium 4.8, chloride 103, bicarbonate 28 and anion gap of 7. BUN 33, creatinine 1.2. Estimated GFR was 53 mL per minute. Her glucose 130, calcium was 9.2. ASSESSMENT: In summary, this is a 72-year-old -Chinese, who has new onset of pain in her right knee joint, which is basically a prosthetic and replaced years ago. There is no obvious deformity. No redness or tenderness. It is not hot to touch. PLAN: My plan is to arrange for her to have x-rays of both hip and knee joints. Repeat her labs including CBC, CMP, uric acid, sed rate and CRP and decide on further management accordingly. Medication mcneal, she is already on oxycodone 10/325. We will use diclofenac. She is already on diclofenac sodium for Voltaren gel, applied 4 times a day and once I have all the lab work, we will decide on further management accordingly. CALEB ALLEN MD DR: EMMA/daphne JOB#: [id number] / [id number]
[2018-01-17 06:18] VITALS: BP 138/57
[2018-01-17] MEDS: oxyCODONE/APAP 10/325 1 TAB TABLET PO PRN ×3 (06:41→16:37)
[2018-01-17] MEDS: oxyCODONE/APAP 10/325 1 TAB TABLET PO SCH ×3 (06:41→19:17)
[2018-01-17 07:36] LABS: HEMATOCRIT 28.2 % (36.0-47.0); HEMOGLOBIN 9.2 g/dL (12.0-15.5); RED BLOOD COUNT 3.38 x10^6/uL (3.50-5.40); RED CELL DISTRIBUTION WIDTH 17.9 % (11.5-14.5); WHITE BLOOD COUNT 7.4 x10^3/uL (4.0-11.0)
[2018-01-17 07:46] LABS: ALBUMIN 3.2 g/dL (3.4-5.0); ALBUMIN/GLOBULIN RATIO 0.8 (1.0-1.7); C REACTIVE PROTEIN 6.2 mg/L (0-3.3); CALCIUM 9.2 mg/dL (8.5-10.1); CREATININE 1.2 mg/dL (0.6-1.0); GFR 53.4; POTASSIUM 5.1 mmol/L (3.5-5.1); TOTAL BILIRUBIN 0.1 mg/dL (0.2-1.0); TOTAL PROTEIN 7.2 g/dL (6.4-8.2); URIC ACID 4.9 mg/dL (2.6-6.0)
[2018-01-17] MEDS: levETIRAcetam 500 MG TABLET PO SCH ×2 (08:37→19:15)
[2018-01-17] MEDS: ASCORBIC ACID 500 MG TABLET PO SCH (08:38)
[2018-01-17] MEDS: FERROUS SULFATE 325 MG TABLET. PO SCH (08:38)
[2018-01-17] MEDS: GABAPENTIN 300 MG CAPSULE. PO SCH ×3 (08:38→19:15)
[2018-01-17] MEDS: ALPRAZolam 0.5 MG TABLET PO SCH ×2 (08:38→19:17)
[2018-01-17] MEDS: GLIMEPIRIDE 2 MG TABLET PO SCH (08:38)
[2018-01-17] MEDS: PIOGLITAZONE 15 MG TABLET. PO SCH (08:38)
[2018-01-17] MEDS: FAMOTIDINE 20 MG TABLET PO SCH ×2 (08:38→19:15)
[2018-01-17] MEDS: amLODIPine BESYLATE 10 MG TABLET PO SCH (08:39)
[2018-01-17] MEDS: DULoxetine HCL 30 MG CAPSULE.DR PO SCH (08:41)
[2018-01-17] MEDS: MAGNESIUM HYDROXIDE 2,400 MG/30 ML ORAL.SUSP. PO PRN (09:06)
[2018-01-17] MEDS: DICLOFENAC SODIUM 1% TOPICAL GEL 100GM TUBE. TP PRN (09:42)
[2018-01-17 16:13] VITALS: BP 159/63
[2018-01-17] MEDS: diphenhydrAMINE HCL 25 MG CAPSULE PO SCH (19:15)
[2018-01-17] MEDS: MELATONIN 3 MG TABLET PO SCH (19:16)
[2018-01-17] MEDS: CELECOXIB 100 MG CAPSULE PO SCH (19:56)
--- NOTE | 2018-01-17 21:59 | PN ---
DATE: 01/16/2018 This is a late entry for 01/16/2018 covers elements not covered in my initial note of 01/16/2018. SUBJECTIVE: I met with the patient in the evening of 01/16/2018. She has been calm, cooperative the previous evening. Complains of pain in the hip, knee and right side of the neck, gets agitated with this. REVIEW OF SYSTEMS: Positive for the pain as noted. No CV, , pulmonary, eye system symptoms on review. MENTAL STATUS EXAM: Oriented to herself and situation. Speech has latency, often responses monosyllabic. Abstraction fair, computation impaired, language function intact, attention span short. Mood and affect still depressed, anxious. No suicidal ideation as questioned by me. LABORATORY DATA: Reviewed. IMPRESSION: Major depressive disorder with psychotic features. Rest unchanged. PLAN: Change Zoloft to Cymbalta 30 mg a day for 2 days, then 60 mg a day. Rest psychotropics unchanged. D3 and iron are low. Defer to Dr. Mcguire. MAN Farrah SAWANT MD DR: MARK/daphne JOB#: [id number] / [id number]
--- NOTE | 2018-01-17 22:02 | PDOC ---
Exam Note: Neal Note: Please also refer to the separate dictated note~for this date of service dictated separately.~Patient seen individually. Discussed the patient with Nursing staff reviewed the chart.~Reviewed interim history and current functioning. Reviewed vital signs,~Labs/ Radiology~and current medications noted below. Continue current treatment with the changes noted in the dictated addendum note Assessment: Vital Signs: Vital Signs Date Time Temp Pulse Resp B/P (MAP) Pulse Ox O2 Delivery O2 Flow Rate FiO2 01/17/18 16:13 97.5 81 18 159/63 (95) 99 01/14/18 23:40 Room Air I&O Intake and Output 01/17/18 07:00 Intake Total 1560 ml Balance 1560 ml Intake Oral 1560 ml # Voids 2 Labs: Laboratory Tests Test 01/17/18 07:08 01/17/18 07:38 01/17/18 07:58 White Blood Count 7.4 x10^3/uL (4.0-11.0) Red Blood Count 3.38 x10^6/uL (3.50-5.40) L Hemoglobin 9.2 g/dL (12.0-15.5) L Hematocrit 28.2 % (36.0-47.0) L Mean Corpuscular Volume 83 fL (79-100) Mean Corpuscular Hemoglobin 27 pg (25-35) Mean Corpuscular Hemoglobin Concent 33 g/dL (31-37) Red Cell Distribution Width 17.9 % (11.5-14.5) H Platelet Count 221 x10^3/uL (140-400) Erythrocyte Sedimentation Rate 55 (0-25) H Sodium Level 141 mmol/L (136-145) Potassium Level 5.1 mmol/L (3.5-5.1) Chloride Level 107 mmol/L (98-107) Carbon Dioxide Level 26 mmol/L (21-32) Anion Gap 8 (6-14) Blood Urea Nitrogen 40 mg/dL (7-20) H Creatinine 1.2 mg/dL (0.6-1.0) H Estimated GFR (Cockcroft-Gault) 53.4 BUN/Creatinine Ratio 33 (6-20) H Glucose Level 62 mg/dL (70-99) L Uric Acid 4.9 mg/dL (2.6-6.0) Calcium Level 9.2 mg/dL (8.5-10.1) Total Bilirubin 0.1 mg/dL (0.2-1.0) L Aspartate Amino Transferase (AST) 18 U/L (15-37) Alanine Aminotransferase (ALT) 29 U/L (14-59) Alkaline Phosphatase 94 U/L (46-116) C-Reactive Protein 6.2 mg/L (0-3.3) H Total Protein 7.2 g/dL (6.4-8.2) Albumin 3.2 g/dL (3.4-5.0) L Albumin/Globulin Ratio 0.8 (1.0-1.7) L Glucose (Fingerstick) 64 mg/dL (70-99) L 103 mg/dL (70-99) H Current Medications: Meds: Current Medications Acetaminophen (Tylenol) 650 mg 1X ONCE PO Last administered on 01/14/18at 20:17 ; Start 01/14/18 at 20:15; Stop 01/14/18 at 20:16; Status DC Sodium Chloride 1,000 ml @ 1,000 mls/hr 1X ONCE IV Last administered on at 21:00; Start 01/14/18 at 20:30; Stop 01/14/18 at 21:29; Status DC Acetaminophen (Tylenol) 650 mg PRN Q6HRS PRN PO PAIN / TEMP; Start 01/15/18 at 00:00 Al Hydroxide/Mg Hydroxide (Mylanta Plus Xs) 15 ml PRN AFTMEALHC PRN PO DYSPEPSIA; Start 01/15/18 at 00:00 Magnesium Hydroxide (Milk Of Magnesia) 2,400 mg PRN QHS PRN PO CONSTIPATION Last administered on 01/17/18at 09:06; Start 01/15/18 at 00:00 Alprazolam (Xanax) 0.25 mg PRN Q8HRS PRN PO ANXIETY / AGITATION; Start 01/15/18 at 00:00 Alprazolam (Xanax) 0.5 mg BID PO Last administered on 01/17/18at 19:17; Start 01/15/18 at 09:00 Sertraline HCl (Zoloft) 150 mg DAILY PO Last administered on 01/16/18at 07:42; Start 01/15/18 at 09:00; Stop 01/16/18 at 16:24; Status DC Non-Formulary Medication (Melatonin/ Pyridoxine (Melatonin 5 Mg Tablet)) 5 mg PRN QHS PRN PO INSOMNIA; Start 01/15/18 at 00:00; Stop 01/15/18 at 04:40; Status DC Albuterol Sulfate (Ventolin) 2.5 mg PRN Q4HRS PRN NEB Dyspnea; Start 01/15/18 at 00:15 Amlodipine Besylate (Norvasc) 10 mg DAILY PO Last administered on 01/17/18at 08: 39; Start 01/15/18 at 09:00 Budesonide (Pulmicort) 0.5 mg PRN BID PRN NEB SHORTNESS OF BREATH; Start at 00:15 Diclofenac Sodium (Voltaren) 4 sam PRN QID PRN TP R Knee Pain Last administered on 01/17/18at 09:42; Start 01/15/18 at 00:15 Dicyclomine HCl (Bentyl) 10 mg PRN Q8HRS PRN PO Bowel Cramps; Start 01/15/18 at 00:15 Diphenhydramine HCl (Benadryl) 25 mg QHS PO Last administered on 01/17/18 19:15 ; Start 01/15/18 at 21:00 Ferrous Sulfate (Feosol) 325 mg DAILY PO Last administered on 01/17/18at 08:38; Start 01/15/18 at 09:00 Gabapentin (Neurontin) 300 mg TID PO Last administered on 01/17/18at 19:15; Start 01/15/18 at 09:00 Hydrocortisone (Proctosol-Hc) 1 sam PRN Q24HRS PRN RC Hemorrhoids; Start at 00:15 Hydrocortisone Acetate (Anucort-Hc) 25 mg PRN Q12HR PRN RC Hemorroids; Start at 00:15 Levetiracetam (Keppra) 500 mg BID PO Last administered on 01/17/18at 19:15; Start 01/15/18 at 09:00 Magnesium Hydroxide (Milk Of Magnesia) 2,400 mg PRN QHS PRN PO CONSTIPATION; Start 01/15/18 at 00:15; Status UNV Nitroglycerin (Nitrostat) 0.4 mg PRN Q5MIN PRN SL CHEST PAIN; Start 01/15/18 at 00:15 Nystatin (Nystop) 1 sam PRN TID PRN TP REDNESS; Start 01/15/18 at 00:15 Oxycodone/ Acetaminophen (Percocet 10/325) 1 tab BID PO Last administered on 19:17; Start 01/15/18 at 09:00 Oxycodone/ Acetaminophen (Percocet 10/325) 1 tab PRN Q4HRS PRN PO PAIN Last administered on 01/17/18 16:37; Start 01/15/18 at 00:15 Pioglitazone HCl (Actos) 15 mg DAILYWBKFT PO Last administered on 01/17/18 08: 38; Start 01/15/18 at 08:00 Ascorbic Acid (Vitamin C) 500 mg DAILY PO Last administered on 01/17/18 08:38; Start 01/15/18 at 09:00 Artificial Tears (Artificial Tears) 1 drop PRN TID PRN OU DRY EYE; Start at 00:15 Glimepiride (Amaryl) 1 mg DAILY PO Last administered on 01/17/18 08:38; Start 01/15/18 at 09:00 Guaifenesin (Robitussin Dm) 10 ml PRN Q4HRS PRN PO COUGH; Start 01/15/18 at 00: 15 Loperamide HCl (Imodium) 2 mg PRN Q4HRS PRN PO DIARRHEA; Start 01/15/18 at 00:15 Ondansetron HCl (Zofran Odt) 4 mg PRN Q4HRS PRN PO NAUSEA/VOMITING; Start at 00:15 Famotidine (Pepcid) 20 mg BID PO Last administered on 01/17/18 19:15; Start 01/15/18 at 09:00 Melatonin 6 mg QHS PO Last administered on 01/17/18 19:16; Start 01/15/18 at 21: 00 Duloxetine HCl (Cymbalta) 30 mg DAILY PO Last administered on 01/17/18 08:41; Start 01/17/18 at 09:00; Stop 01/18/18 at 23:30 Duloxetine HCl (Cymbalta) 60 mg DAILY PO ; Start 01/19/18 at 09:00 Celecoxib (CeleBREX) 100 mg BID PO Last administered on 01/17/18at 19:56; Start 01/17/18 at 21:00 Active Scripts Active Reported Zantac (Ranitidine Hcl) 150 Mg Tablet 150 Mg PO BID Vitamin C (Ascorbate Calcium) 500 Mg Tablet 500 Mg PO DAILY Robitussin Cough-Chest Dm Liq (Guaifenesin/Dextromethorphan) 237 Ml Liquid 10 Ml PO PRN Q4HRS PRN Percocet 10-325 Mg Tablet (Oxycodone Hcl/Acetaminophen) 1 Each Tablet 1 Tab PO PRN Q4HRS PRN Percocet 10-325 Mg Tablet (Oxycodone Hcl/Acetaminophen) 1 Each Tablet 1 Tab PO BID Ondansetron Hcl 4 Mg Tablet 4 Mg PO PRN Q4HRS PRN Nystatin 15 Gm Powder 1 Sam TP PRN TID PRN Nitrostat (Nitroglycerin) 0.4 Mg Tab.subl 0.4 Mg SL PRN Q5MIN PRN MDD 3tabs Naprosyn (Naproxen) 500 Mg Tablet 500 Mg PO PRN Q12HR PRN Melatonin 5 Mg Tablet (Melatonin/Pyridoxine) 1 Each Tablet 5 Mg PO PRN QHS PRN Loperamide (Loperamide Hcl) 2 Mg Tablet 2 Mg PO PRN Q4HRS PRN MDD 16mg Keppra (Levetiracetam) 500 Mg Tablet 500 Mg PO BID Ferrous Sulfate 325 Mg Tablet 325 Mg PO DAILY Neurontin (Gabapentin) 300 Mg Capsule 300 Mg PO TID Voltaren (Diclofenac Sodium) 100 Gm Gel..gram. 4 Gm TP PRN QID PRN Budesonide 0.5 Mg/2 Ml Ampul.neb 0.5 Mg NEB PRN BID PRN Dicyclomine Hcl 10 Mg Capsule 10 Mg PO PRN Q8HRS PRN Benadryl (Diphenhydramine Hcl) 25 Mg Capsule 25 Mg PO QHS Artificial Tears Eye Drops (Dextran 70/Hypromellose) 15 Ml Drops 1 Drop OU TID PRN Anusol-Hc (Hydrocortisone Acetate) 25 Mg Supp.rect 25 Mg RC PRN Q12HR PRN Anusol-Hc (Hydrocortisone) 30 Gm Cream..g. 1 Sam RC PRN Q24HRS PRN Norvasc (Amlodipine Besylate) 10 Mg Tablet 10 Mg PO DAILY Amaryl (Glimepiride) 1 Mg Tablet 1 Mg PO DAILY Alprazolam 0.5 Mg Tablet 0.5 Mg PO BID Tylenol (Acetaminophen) 325 Mg Tablet 650 Mg PO PRN Q4HRS PRN Albuterol Sulfate Neb Soln (Albuterol Sulfate) 2.5 Mg/3 Ml Vial.neb 2.5 Mg NEB PRN Q4HRS PRN Zoloft (Sertraline Hcl) 100 Mg Tablet 150 Mg PO DAILY Milk Of Magnesia (Magnesium Hydroxide) 400 Mg/5 Ml Oral.susp 2,400 Mg PO PRN QHS PRN Alprazolam 0.25 Mg Tablet 0.25 Mg PO PRN Q8HRS PRN Actos (Pioglitazone Hcl) 15 Mg Tablet 15 Mg PO DAILYWBKFT I have reviewed the current psychotropics carefully including drug interactions. Risk benefit ratio favors no change other than as noted in my dictated progress note. Diagnosis: Problems: (1) Depression (2) Suicidal ideation (3) Anxiety disorder (4) Impulse control disorder (5) Major depressive disorder, recurrent episode (6) Mild cognitive impairment BEA SAWANT MD Jan 17, 2018 22:02
[2018-01-18 06:02] VITALS: BP 113/65
[2018-01-18] MEDS: GABAPENTIN 300 MG CAPSULE. PO SCH ×3 (08:11→19:23)
[2018-01-18] MEDS: FAMOTIDINE 20 MG TABLET PO SCH ×2 (08:11→19:23)
[2018-01-18] MEDS: levETIRAcetam 500 MG TABLET PO SCH ×2 (08:11→19:23)
[2018-01-18] MEDS: CELECOXIB 100 MG CAPSULE PO SCH ×2 (08:11→19:23)
[2018-01-18] MEDS: PIOGLITAZONE 15 MG TABLET. PO SCH (08:11)
[2018-01-18] MEDS: FERROUS SULFATE 325 MG TABLET. PO SCH (08:11)
[2018-01-18] MEDS: ASCORBIC ACID 500 MG TABLET PO SCH (08:12)
[2018-01-18] MEDS: amLODIPine BESYLATE 10 MG TABLET PO SCH (08:12)
[2018-01-18] MEDS: GLIMEPIRIDE 2 MG TABLET PO SCH (08:12)
[2018-01-18] MEDS: DULoxetine HCL 30 MG CAPSULE.DR PO SCH (08:12)
[2018-01-18] MEDS: oxyCODONE/APAP 10/325 1 TAB TABLET PO SCH ×2 (08:15→19:25)
[2018-01-18] MEDS: ALPRAZolam 0.5 MG TABLET PO SCH ×2 (08:15→19:25)
[2018-01-18] MEDS: oxyCODONE/APAP 10/325 1 TAB TABLET PO PRN (13:24)
--- NOTE | 2018-01-18 13:55 | PN ---
DATE: 01/17/2018 This is a late entry 01/17/2018 covers elements not covered in my initial note 01/17/2018. Met with the patient evening of 01/17/2018. The patient slept 6-1/2 hours previous evening. DICTATION ENDS HERE. MAN Farrah SAWANT MD DR: MARK/daphne JOB#: [id number] / [id number]
--- NOTE | 2018-01-18 13:58 | PN ---
DATE: 01/17/2018 PSYCHIATRIC PROGRESS NOTE This is a late entry 01/17/2018, covers elements not covered in my initial note 01/17/2018. SUBJECTIVE: I met with the patient the evening of 01/17/2018. The patient slept 6-1/2 hours previous evening. Complains of some ongoing chronic pain, started on Percocet per Dr. Mcguire and Celebrex. Denies active suicidal ideation, still depressed. REVIEW OF SYSTEMS: Positive for the pain. No CV, , pulmonary, eye system symptoms on review. MENTAL STATUS EXAM: Oriented to herself and situation. Speech moderate latency, often responses monosyllabic. Abstraction fair, computation impaired, language function intact, attention span short. Mood and affect remain somewhat depressed. LABORATORY DATA: Reviewed. IMPRESSION: Major depressive disorder with suicidal ideation latter in partial remission. Rest unchanged. PLAN: Continue psychotropics mentioned in my initial note. Increase the Cymbalta gradually. BEA SAWANT MD DR: MARK/daphne JOB#: [id number] / [id number]
[2018-01-18 15:41] VITALS: BP 130/66
[2018-01-18] MEDS: MELATONIN 3 MG TABLET PO SCH (19:22)
[2018-01-18] MEDS: diphenhydrAMINE HCL 25 MG CAPSULE PO SCH (19:23)
--- NOTE | 2018-01-18 20:51 | PDOC ---
Exam Note: Neal Note: Please also refer to the separate dictated note~for this date of service dictated separately.~Patient seen individually. Discussed the patient with Nursing staff reviewed the chart.~Reviewed interim history and current functioning. Reviewed vital signs,~Labs/ Radiology~and current medications noted below. Continue current treatment with the changes noted in the dictated addendum note Assessment: Vital Signs: Vital Signs Date Time Temp Pulse Resp B/P (MAP) Pulse Ox O2 Delivery O2 Flow Rate FiO2 01/18/18 15:41 98.0 85 20 130/66 (87) 98 01/14/18 23:40 Room Air I&O Intake and Output 01/18/18 07:00 Intake Total 1680 ml Balance 1680 ml Intake Oral 1680 ml # Voids 2 Labs: Laboratory Tests Test 01/18/18 07:03 01/18/18 19:33 Glucose (Fingerstick) 64 mg/dL (70-99) L 151 mg/dL (70-99) H Current Medications: Meds: Current Medications Acetaminophen (Tylenol) 650 mg 1X ONCE PO Last administered on 01/14/18at 20:17 ; Start 01/14/18 at 20:15; Stop 01/14/18 at 20:16; Status DC Sodium Chloride 1,000 ml @ 1,000 mls/hr 1X ONCE IV Last administered on 21:00; Start 01/14/18 at 20:30; Stop 01/14/18 at 21:29; Status DC Acetaminophen (Tylenol) 650 mg PRN Q6HRS PRN PO PAIN / TEMP; Start 01/15/18 at 00:00 Al Hydroxide/Mg Hydroxide (Mylanta Plus Xs) 15 ml PRN AFTMEALHC PRN PO DYSPEPSIA; Start 01/15/18 at 00:00 Magnesium Hydroxide (Milk Of Magnesia) 2,400 mg PRN QHS PRN PO CONSTIPATION Last administered on 01/17/18at 09:06; Start 01/15/18 at 00:00 Alprazolam (Xanax) 0.25 mg PRN Q8HRS PRN PO ANXIETY / AGITATION Last administered on 01/18/18at 10:50; Start 01/15/18 at 00:00 Alprazolam (Xanax) 0.5 mg BID PO Last administered on 01/18/18at 19:25; Start at 09:00 Sertraline HCl (Zoloft) 150 mg DAILY PO Last administered on 01/16/18 07:42; Start 01/15/18 at 09:00; Stop 01/16/18 at 16:24; Status DC Non-Formulary Medication (Melatonin/ Pyridoxine (Melatonin 5 Mg Tablet)) 5 mg PRN QHS PRN PO INSOMNIA; Start 01/15/18 at 00:00; Stop 01/15/18 at 04:40; Status DC Albuterol Sulfate (Ventolin) 2.5 mg PRN Q4HRS PRN NEB Dyspnea; Start 01/15/18 at 00:15 Amlodipine Besylate (Norvasc) 10 mg DAILY PO Last administered on 01/18/18at 08: 12; Start 01/15/18 at 09:00 Budesonide (Pulmicort) 0.5 mg PRN BID PRN NEB SHORTNESS OF BREATH; Start at 00:15 Diclofenac Sodium (Voltaren) 4 sam PRN QID PRN TP R Knee Pain Last administered on 01/17/18at 09:42; Start 01/15/18 at 00:15 Dicyclomine HCl (Bentyl) 10 mg PRN Q8HRS PRN PO Bowel Cramps; Start 01/15/18 at 00:15 Diphenhydramine HCl (Benadryl) 25 mg QHS PO Last administered on 01/18/18 19: 23; Start 01/15/18 at 21:00 Ferrous Sulfate (Feosol) 325 mg DAILY PO Last administered on 01/18/18at 08:11; Start 01/15/18 at 09:00 Gabapentin (Neurontin) 300 mg TID PO Last administered on 01/18/18 19:23; Start 01/15/18 at 09:00 Hydrocortisone (Proctosol-Hc) 1 sam PRN Q24HRS PRN RC Hemorrhoids; Start at 00:15 Hydrocortisone Acetate (Anucort-Hc) 25 mg PRN Q12HR PRN RC Hemorroids; Start at 00:15 Levetiracetam (Keppra) 500 mg BID PO Last administered on 01/18/18 19:23; Start 01/15/18 at 09:00 Magnesium Hydroxide (Milk Of Magnesia) 2,400 mg PRN QHS PRN PO CONSTIPATION; Start 01/15/18 at 00:15; Status UNV Nitroglycerin (Nitrostat) 0.4 mg PRN Q5MIN PRN SL CHEST PAIN; Start 01/15/18 at 00:15 Nystatin (Nystop) 1 sam PRN TID PRN TP REDNESS; Start 01/15/18 at 00:15 Oxycodone/ Acetaminophen (Percocet 10/325) 1 tab BID PO Last administered on 19:25; Start 01/15/18 at 09:00 Oxycodone/ Acetaminophen (Percocet 10/325) 1 tab PRN Q4HRS PRN PO PAIN Last administered on 01/18/18 13:24; Start 01/15/18 at 00:15 Pioglitazone HCl (Actos) 15 mg DAILYWBKFT PO Last administered on 01/18/18at 08: 11; Start 01/15/18 at 08:00 Ascorbic Acid (Vitamin C) 500 mg DAILY PO Last administered on 01/18/18at 08:12 ; Start 01/15/18 at 09:00 Artificial Tears (Artificial Tears) 1 drop PRN TID PRN OU DRY EYE; Start at 00:15 Glimepiride (Amaryl) 1 mg DAILY PO Last administered on 01/18/18at 08:12; Start 01/15/18 at 09:00 Guaifenesin (Robitussin Dm) 10 ml PRN Q4HRS PRN PO COUGH; Start 01/15/18 at 00: 15 Loperamide HCl (Imodium) 2 mg PRN Q4HRS PRN PO DIARRHEA; Start 01/15/18 at 00:15 Ondansetron HCl (Zofran Odt) 4 mg PRN Q4HRS PRN PO NAUSEA/VOMITING; Start at 00:15 Famotidine (Pepcid) 20 mg BID PO Last administered on 01/18/18 19:23; Start at 09:00 Melatonin 6 mg QHS PO Last administered on 01/18/18 19:22; Start 01/15/18 at 21 :00 Duloxetine HCl (Cymbalta) 30 mg DAILY PO Last administered on 01/18/18at 08:12; Start 01/17/18 at 09:00; Stop 01/18/18 at 23:30 Duloxetine HCl (Cymbalta) 60 mg DAILY PO ; Start 01/19/18 at 09:00 Celecoxib (CeleBREX) 100 mg BID PO Last administered on 01/18/18at 19:23; Start 01/17/18 at 21:00 Active Scripts Active Reported Zantac (Ranitidine Hcl) 150 Mg Tablet 150 Mg PO BID Vitamin C (Ascorbate Calcium) 500 Mg Tablet 500 Mg PO DAILY Robitussin Cough-Chest Dm Liq (Guaifenesin/Dextromethorphan) 237 Ml Liquid 10 Ml PO PRN Q4HRS PRN Percocet 10-325 Mg Tablet (Oxycodone Hcl/Acetaminophen) 1 Each Tablet 1 Tab PO PRN Q4HRS PRN Percocet 10-325 Mg Tablet (Oxycodone Hcl/Acetaminophen) 1 Each Tablet 1 Tab PO BID Ondansetron Hcl 4 Mg Tablet 4 Mg PO PRN Q4HRS PRN Nystatin 15 Gm Powder 1 Sam TP PRN TID PRN Nitrostat (Nitroglycerin) 0.4 Mg Tab.subl 0.4 Mg SL PRN Q5MIN PRN MDD 3tabs Naprosyn (Naproxen) 500 Mg Tablet 500 Mg PO PRN Q12HR PRN Melatonin 5 Mg Tablet (Melatonin/Pyridoxine) 1 Each Tablet 5 Mg PO PRN QHS PRN Loperamide (Loperamide Hcl) 2 Mg Tablet 2 Mg PO PRN Q4HRS PRN MDD 16mg Keppra (Levetiracetam) 500 Mg Tablet 500 Mg PO BID Ferrous Sulfate 325 Mg Tablet 325 Mg PO DAILY Neurontin (Gabapentin) 300 Mg Capsule 300 Mg PO TID Voltaren (Diclofenac Sodium) 100 Gm Gel..gram. 4 Gm TP PRN QID PRN Budesonide 0.5 Mg/2 Ml Ampul.neb 0.5 Mg NEB PRN BID PRN Dicyclomine Hcl 10 Mg Capsule 10 Mg PO PRN Q8HRS PRN Benadryl (Diphenhydramine Hcl) 25 Mg Capsule 25 Mg PO QHS Artificial Tears Eye Drops (Dextran 70/Hypromellose) 15 Ml Drops 1 Drop OU TID PRN Anusol-Hc (Hydrocortisone Acetate) 25 Mg Supp.rect 25 Mg RC PRN Q12HR PRN Anusol-Hc (Hydrocortisone) 30 Gm Cream..g. 1 Sam RC PRN Q24HRS PRN Norvasc (Amlodipine Besylate) 10 Mg Tablet 10 Mg PO DAILY Amaryl (Glimepiride) 1 Mg Tablet 1 Mg PO DAILY Alprazolam 0.5 Mg Tablet 0.5 Mg PO BID Tylenol (Acetaminophen) 325 Mg Tablet 650 Mg PO PRN Q4HRS PRN Albuterol Sulfate Neb Soln (Albuterol Sulfate) 2.5 Mg/3 Ml Vial.neb 2.5 Mg NEB PRN Q4HRS PRN Zoloft (Sertraline Hcl) 100 Mg Tablet 150 Mg PO DAILY Milk Of Magnesia (Magnesium Hydroxide) 400 Mg/5 Ml Oral.susp 2,400 Mg PO PRN QHS PRN Alprazolam 0.25 Mg Tablet 0.25 Mg PO PRN Q8HRS PRN Actos (Pioglitazone Hcl) 15 Mg Tablet 15 Mg PO DAILYWBKFT I have reviewed the current psychotropics carefully including drug interactions. Risk benefit ratio favors no change other than as noted in my dictated progress note. Diagnosis: Problems: (1) Depression (2) Hyperglycemia (3) Suicidal ideation (4) Anxiety disorder (5) Impulse control disorder (6) Major depressive disorder, recurrent episode (7) Mild cognitive impairment (8) Prerenal azotemia BEA SAWANT MD Jan 18, 2018 20:51
[2018-01-19 06:34] VITALS: BP 123/65
[2018-01-19] MEDS: PIOGLITAZONE 15 MG TABLET. PO SCH (09:36)
[2018-01-19] MEDS: FAMOTIDINE 20 MG TABLET PO SCH ×2 (09:37→19:49)
[2018-01-19] MEDS: GLIMEPIRIDE 2 MG TABLET PO SCH (09:37)
[2018-01-19] MEDS: FERROUS SULFATE 325 MG TABLET. PO SCH (09:38)
[2018-01-19] MEDS: amLODIPine BESYLATE 10 MG TABLET PO SCH (09:38)
[2018-01-19] MEDS: GABAPENTIN 300 MG CAPSULE. PO SCH ×3 (09:38→19:49)
[2018-01-19] MEDS: levETIRAcetam 500 MG TABLET PO SCH ×2 (09:38→19:49)
[2018-01-19] MEDS: ASCORBIC ACID 500 MG TABLET PO SCH (09:38)
[2018-01-19] MEDS: ALPRAZolam 0.5 MG TABLET PO SCH ×2 (09:41→19:48)
[2018-01-19] MEDS: DULoxetine HCL 60 MG CAPSULE.DR PO SCH (09:41)
[2018-01-19] MEDS: oxyCODONE/APAP 10/325 1 TAB TABLET PO SCH ×2 (09:41→19:49)
[2018-01-19] MEDS: CELECOXIB 100 MG CAPSULE PO SCH ×2 (09:42→19:49)
[2018-01-19 16:21] VITALS: BP 156/90
[2018-01-19] MEDS: diphenhydrAMINE HCL 25 MG CAPSULE PO SCH (19:49)
[2018-01-19] MEDS: MELATONIN 3 MG TABLET PO SCH (19:50)
[2018-01-19] MEDS: MAGNESIUM HYDROXIDE 2,400 MG/30 ML ORAL.SUSP. PO PRN (20:45)
--- NOTE | 2018-01-19 20:54 | PDOC ---
Exam Note: Neal Note: Please also refer to the separate dictated note~for this date of service dictated separately.~Patient seen individually. Discussed the patient with Nursing staff reviewed the chart.~Reviewed interim history and current functioning. Reviewed vital signs,~Labs/ Radiology~and current medications noted below. Continue current treatment with the changes noted in the dictated addendum note Assessment: Vital Signs: Vital Signs Date Time Temp Pulse Resp B/P (MAP) Pulse Ox O2 Delivery O2 Flow Rate FiO2 01/19/18 16:21 97.7 82 20 156/90 (112) 99 01/19/18 06:34 Room Air I&O Intake and Output 01/19/18 07:00 Intake Total 1320 ml Balance 1320 ml Intake Oral 1320 ml # Voids 2 Labs: Laboratory Tests Test 01/19/18 07:08 01/19/18 07:38 Glucose (Fingerstick) 56 mg/dL (70-99) L 80 mg/dL (70-99) Current Medications: Meds: Current Medications Acetaminophen (Tylenol) 650 mg 1X ONCE PO Last administered on 01/14/18at 20:17 ; Start 01/14/18 at 20:15; Stop 01/14/18 at 20:16; Status DC Sodium Chloride 1,000 ml @ 1,000 mls/hr 1X ONCE IV Last administered on 21:00; Start 01/14/18 at 20:30; Stop 01/14/18 at 21:29; Status DC Acetaminophen (Tylenol) 650 mg PRN Q6HRS PRN PO PAIN / TEMP; Start 01/15/18 at 00:00 Al Hydroxide/Mg Hydroxide (Mylanta Plus Xs) 15 ml PRN AFTMEALHC PRN PO DYSPEPSIA; Start 01/15/18 at 00:00 Magnesium Hydroxide (Milk Of Magnesia) 2,400 mg PRN QHS PRN PO CONSTIPATION Last administered on 01/19/18at 20:45; Start 01/15/18 at 00:00 Alprazolam (Xanax) 0.25 mg PRN Q8HRS PRN PO ANXIETY / AGITATION Last administered on 01/18/18at 10:50; Start 01/15/18 at 00:00 Alprazolam (Xanax) 0.5 mg BID PO Last administered on 01/19/18at 19:48; Start at 09:00 Sertraline HCl (Zoloft) 150 mg DAILY PO Last administered on 01/16/18 07:42; Start 01/15/18 at 09:00; Stop 01/16/18 at 16:24; Status DC Non-Formulary Medication (Melatonin/ Pyridoxine (Melatonin 5 Mg Tablet)) 5 mg PRN QHS PRN PO INSOMNIA; Start 01/15/18 at 00:00; Stop 01/15/18 at 04:40; Status DC Albuterol Sulfate (Ventolin) 2.5 mg PRN Q4HRS PRN NEB Dyspnea; Start 01/15/18 at 00:15 Amlodipine Besylate (Norvasc) 10 mg DAILY PO Last administered on 01/19/18 09: 38; Start 01/15/18 at 09:00 Budesonide (Pulmicort) 0.5 mg PRN BID PRN NEB SHORTNESS OF BREATH; Start at 00:15 Diclofenac Sodium (Voltaren) 4 sam PRN QID PRN TP R Knee Pain Last administered on 01/17/18 09:42; Start 01/15/18 at 00:15 Dicyclomine HCl (Bentyl) 10 mg PRN Q8HRS PRN PO Bowel Cramps; Start 01/15/18 at 00:15 Diphenhydramine HCl (Benadryl) 25 mg QHS PO Last administered on 01/19/18 19: 49; Start 01/15/18 at 21:00 Ferrous Sulfate (Feosol) 325 mg DAILY PO Last administered on 01/19/18 09:38; Start 01/15/18 at 09:00 Gabapentin (Neurontin) 300 mg TID PO Last administered on 01/19/18 19:49; Start 01/15/18 at 09:00 Hydrocortisone (Proctosol-Hc) 1 sam PRN Q24HRS PRN RC Hemorrhoids; Start at 00:15 Hydrocortisone Acetate (Anucort-Hc) 25 mg PRN Q12HR PRN RC Hemorroids; Start at 00:15 Levetiracetam (Keppra) 500 mg BID PO Last administered on 01/19/18 19:49; Start 01/15/18 at 09:00 Magnesium Hydroxide (Milk Of Magnesia) 2,400 mg PRN QHS PRN PO CONSTIPATION; Start 01/15/18 at 00:15; Status UNV Nitroglycerin (Nitrostat) 0.4 mg PRN Q5MIN PRN SL CHEST PAIN; Start 01/15/18 at 00:15 Nystatin (Nystop) 1 sam PRN TID PRN TP REDNESS; Start 01/15/18 at 00:15 Oxycodone/ Acetaminophen (Percocet 10/325) 1 tab BID PO Last administered on 19:49; Start 01/15/18 at 09:00 Oxycodone/ Acetaminophen (Percocet 10/325) 1 tab PRN Q4HRS PRN PO PAIN Last administered on 01/18/18 13:24; Start 01/15/18 at 00:15 Pioglitazone HCl (Actos) 15 mg DAILYWBKFT PO Last administered on 01/19/18 09: 36; Start 01/15/18 at 08:00 Ascorbic Acid (Vitamin C) 500 mg DAILY PO Last administered on 01/19/18 09:38 ; Start 01/15/18 at 09:00 Artificial Tears (Artificial Tears) 1 drop PRN TID PRN OU DRY EYE; Start at 00:15 Glimepiride (Amaryl) 1 mg DAILY PO Last administered on 01/19/18at 09:37; Start 01/15/18 at 09:00 Guaifenesin (Robitussin Dm) 10 ml PRN Q4HRS PRN PO COUGH; Start 01/15/18 at 00: 15 Loperamide HCl (Imodium) 2 mg PRN Q4HRS PRN PO DIARRHEA; Start 01/15/18 at 00:15 Ondansetron HCl (Zofran Odt) 4 mg PRN Q4HRS PRN PO NAUSEA/VOMITING; Start at 00:15 Famotidine (Pepcid) 20 mg BID PO Last administered on 01/19/18 19:49; Start at 09:00 Melatonin 6 mg QHS PO Last administered on 01/19/18 19:50; Start 01/15/18 at 21 :00 Duloxetine HCl (Cymbalta) 30 mg DAILY PO Last administered on 01/18/18at 08:12; Start 01/17/18 at 09:00; Stop 01/18/18 at 23:30; Status DC Duloxetine HCl (Cymbalta) 60 mg DAILY PO Last administered on 01/19/18at 09:41; Start 01/19/18 at 09:00 Celecoxib (CeleBREX) 100 mg BID PO Last administered on 01/19/18at 19:49; Start 01/17/18 at 21:00 Active Scripts Active Reported Zantac (Ranitidine Hcl) 150 Mg Tablet 150 Mg PO BID Vitamin C (Ascorbate Calcium) 500 Mg Tablet 500 Mg PO DAILY Robitussin Cough-Chest Dm Liq (Guaifenesin/Dextromethorphan) 237 Ml Liquid 10 Ml PO PRN Q4HRS PRN Percocet 10-325 Mg Tablet (Oxycodone Hcl/Acetaminophen) 1 Each Tablet 1 Tab PO PRN Q4HRS PRN Percocet 10-325 Mg Tablet (Oxycodone Hcl/Acetaminophen) 1 Each Tablet 1 Tab PO BID Ondansetron Hcl 4 Mg Tablet 4 Mg PO PRN Q4HRS PRN Nystatin 15 Gm Powder 1 Sam TP PRN TID PRN Nitrostat (Nitroglycerin) 0.4 Mg Tab.subl 0.4 Mg SL PRN Q5MIN PRN MDD 3tabs Naprosyn (Naproxen) 500 Mg Tablet 500 Mg PO PRN Q12HR PRN Melatonin 5 Mg Tablet (Melatonin/Pyridoxine) 1 Each Tablet 5 Mg PO PRN QHS PRN Loperamide (Loperamide Hcl) 2 Mg Tablet 2 Mg PO PRN Q4HRS PRN MDD 16mg Keppra (Levetiracetam) 500 Mg Tablet 500 Mg PO BID Ferrous Sulfate 325 Mg Tablet 325 Mg PO DAILY Neurontin (Gabapentin) 300 Mg Capsule 300 Mg PO TID Voltaren (Diclofenac Sodium) 100 Gm Gel..gram. 4 Gm TP PRN QID PRN Budesonide 0.5 Mg/2 Ml Ampul.neb 0.5 Mg NEB PRN BID PRN Dicyclomine Hcl 10 Mg Capsule 10 Mg PO PRN Q8HRS PRN Benadryl (Diphenhydramine Hcl) 25 Mg Capsule 25 Mg PO QHS Artificial Tears Eye Drops (Dextran 70/Hypromellose) 15 Ml Drops 1 Drop OU TID PRN Anusol-Hc (Hydrocortisone Acetate) 25 Mg Supp.rect 25 Mg RC PRN Q12HR PRN Anusol-Hc (Hydrocortisone) 30 Gm Cream..g. 1 Sam RC PRN Q24HRS PRN Norvasc (Amlodipine Besylate) 10 Mg Tablet 10 Mg PO DAILY Amaryl (Glimepiride) 1 Mg Tablet 1 Mg PO DAILY Alprazolam 0.5 Mg Tablet 0.5 Mg PO BID Tylenol (Acetaminophen) 325 Mg Tablet 650 Mg PO PRN Q4HRS PRN Albuterol Sulfate Neb Soln (Albuterol Sulfate) 2.5 Mg/3 Ml Vial.neb 2.5 Mg NEB PRN Q4HRS PRN Zoloft (Sertraline Hcl) 100 Mg Tablet 150 Mg PO DAILY Milk Of Magnesia (Magnesium Hydroxide) 400 Mg/5 Ml Oral.susp 2,400 Mg PO PRN QHS PRN Alprazolam 0.25 Mg Tablet 0.25 Mg PO PRN Q8HRS PRN Actos (Pioglitazone Hcl) 15 Mg Tablet 15 Mg PO [id number] I have reviewed the current psychotropics carefully including drug interactions. Risk benefit ratio favors no change other than as noted in my dictated progress note. Diagnosis: Problems: (1) Prerenal azotemia (2) Depression (3) Hyperglycemia (4) Suicidal ideation (5) Anxiety disorder (6) Impulse control disorder (7) Major depressive disorder, recurrent episode (8) Mild cognitive impairment BEA SAWANT MD Jan 19, 2018 20:54
--- NOTE | 2018-01-19 20:55 | PN ---
DATE: 01/18/2018 This is a late entry for 01/18/2018 covers elements not covered in my initial note of 01/18/2018. SUBJECTIVE: I met with the patient in the evening of 01/18/2018. The patient slept 8-3/4 hours previous evening, still withdrawn, depressed. She is quite upset and talked at some length about her older sister telling her that the man she was seeing was no good. The patient feels her sister is jealous of her seeing this person and therefore makes these comments rather than in the patient's best interest. We processed this. REVIEW OF SYSTEMS: Positive for ongoing pain symptoms, which are generalized. No CV, , pulmonary, eye, ENT system symptoms on review. MENTAL STATUS EXAM: Oriented to herself and situation. Speech coherent, has some latency. Abstraction fair, computation impaired, language function intact, attention span short. Mood and affect remain somewhat depressed. No active suicidal ideation. LABORATORY DATA: Reviewed. IMPRESSION: Major depressive disorder, recurrent. Rest unchanged. PLAN: Continue psychotropics mentioned in my initial note. Cymbalta has been increased both for depression, should help the pain symptoms as well. MAN Farrah SAWANT MD DR: MARK/daphne JOB#: [id number] / [id number]
[2018-01-20 06:08] VITALS: BP 140/51
[2018-01-20] MEDS: FERROUS SULFATE 325 MG TABLET. PO SCH (09:18)
[2018-01-20] MEDS: PIOGLITAZONE 15 MG TABLET. PO SCH (09:18)
[2018-01-20] MEDS: DULoxetine HCL 60 MG CAPSULE.DR PO SCH (09:18)
[2018-01-20] MEDS: GABAPENTIN 300 MG CAPSULE. PO SCH ×3 (09:18→21:00)
[2018-01-20] MEDS: amLODIPine BESYLATE 10 MG TABLET PO SCH (09:18)
[2018-01-20] MEDS: ASCORBIC ACID 500 MG TABLET PO SCH (09:18)
[2018-01-20] MEDS: levETIRAcetam 500 MG TABLET PO SCH ×2 (09:18→21:00)
[2018-01-20] MEDS: FAMOTIDINE 20 MG TABLET PO SCH ×2 (09:18→21:00)
[2018-01-20] MEDS: GLIMEPIRIDE 2 MG TABLET PO SCH (09:19)
[2018-01-20] MEDS: oxyCODONE/APAP 10/325 1 TAB TABLET PO SCH ×2 (09:21→21:02)
[2018-01-20] MEDS: CELECOXIB 100 MG CAPSULE PO SCH ×2 (09:21→21:02)
[2018-01-20] MEDS: ALPRAZolam 0.5 MG TABLET PO SCH ×2 (09:21→21:02)
[2018-01-20 15:37] VITALS: BP 169/86
--- NOTE | 2018-01-20 20:54 | PDOC ---
Exam Note: Neal Note: Please also refer to the separate dictated note~for this date of service dictated separately.~Patient seen individually. Discussed the patient with Nursing staff reviewed the chart.~Reviewed interim history and current functioning. Reviewed vital signs,~Labs/ Radiology~and current medications noted below. Continue current treatment with the changes noted in the dictated addendum note Assessment: Vital Signs: Vital Signs Date Time Temp Pulse Resp B/P (MAP) Pulse Ox O2 Delivery O2 Flow Rate FiO2 01/20/18 15:37 97.9 75 18 169/86 (113) 96 01/19/18 06:34 Room Air I&O Intake and Output 01/20/18 07:00 Intake Total 1200 ml Balance 1200 ml Intake Oral 1200 ml # Voids 1 Labs: Laboratory Tests Test 01/20/18 07:15 Glucose (Fingerstick) 74 mg/dL (70-99) Current Medications: Meds: Current Medications Acetaminophen (Tylenol) 650 mg 1X ONCE PO Last administered on 01/14/18at 20:17 ; Start 01/14/18 at 20:15; Stop 01/14/18 at 20:16; Status DC Sodium Chloride 1,000 ml @ 1,000 mls/hr 1X ONCE IV Last administered on at 21:00; Start 01/14/18 at 20:30; Stop 01/14/18 at 21:29; Status DC Acetaminophen (Tylenol) 650 mg PRN Q6HRS PRN PO PAIN / TEMP; Start 01/15/18 at 00:00 Al Hydroxide/Mg Hydroxide (Mylanta Plus Xs) 15 ml PRN AFTMEALHC PRN PO DYSPEPSIA; Start 01/15/18 at 00:00 Magnesium Hydroxide (Milk Of Magnesia) 2,400 mg PRN QHS PRN PO CONSTIPATION Last administered on 01/19/18at 20:45; Start 01/15/18 at 00:00 Alprazolam (Xanax) 0.25 mg PRN Q8HRS PRN PO ANXIETY / AGITATION Last administered on 01/18/18at 10:50; Start 01/15/18 at 00:00 Alprazolam (Xanax) 0.5 mg BID PO Last administered on 01/20/18at 09:21; Start at 09:00 Sertraline HCl (Zoloft) 150 mg DAILY PO Last administered on 01/16/18at 07:42; Start 01/15/18 at 09:00; Stop 01/16/18 at 16:24; Status DC Non-Formulary Medication (Melatonin/ Pyridoxine (Melatonin 5 Mg Tablet)) 5 mg PRN QHS PRN PO INSOMNIA; Start 01/15/18 at 00:00; Stop 01/15/18 at 04:40; Status DC Albuterol Sulfate (Ventolin) 2.5 mg PRN Q4HRS PRN NEB Dyspnea; Start 01/15/18 at 00:15 Amlodipine Besylate (Norvasc) 10 mg DAILY PO Last administered on 01/20/18at 09: 18; Start 01/15/18 at 09:00 Budesonide (Pulmicort) 0.5 mg PRN BID PRN NEB SHORTNESS OF BREATH; Start at 00:15 Diclofenac Sodium (Voltaren) 4 sam PRN QID PRN TP R Knee Pain Last administered on 01/17/18at 09:42; Start 01/15/18 at 00:15 Dicyclomine HCl (Bentyl) 10 mg PRN Q8HRS PRN PO Bowel Cramps; Start 01/15/18 at 00:15 Diphenhydramine HCl (Benadryl) 25 mg QHS PO Last administered on 01/19/18at 19: 49; Start 01/15/18 at 21:00 Ferrous Sulfate (Feosol) 325 mg DAILY PO Last administered on 01/20/18at 09:18; Start 01/15/18 at 09:00 Gabapentin (Neurontin) 300 mg TID PO Last administered on 01/20/18at 14:02; Start 01/15/18 at 09:00 Hydrocortisone (Proctosol-Hc) 1 sam PRN Q24HRS PRN RC Hemorrhoids; Start at 00:15 Hydrocortisone Acetate (Anucort-Hc) 25 mg PRN Q12HR PRN RC Hemorroids; Start at 00:15 Levetiracetam (Keppra) 500 mg BID PO Last administered on 01/20/18at 09:18; Start 01/15/18 at 09:00 Magnesium Hydroxide (Milk Of Magnesia) 2,400 mg PRN QHS PRN PO CONSTIPATION; Start 01/15/18 at 00:15; Status UNV Nitroglycerin (Nitrostat) 0.4 mg PRN Q5MIN PRN SL CHEST PAIN; Start 01/15/18 at 00:15 Nystatin (Nystop) 1 sam PRN TID PRN TP REDNESS; Start 01/15/18 at 00:15 Oxycodone/ Acetaminophen (Percocet 10/325) 1 tab BID PO Last administered on 09/27at 09:21; Start 01/15/18 at 09:00 Oxycodone/ Acetaminophen (Percocet 10/325) 1 tab PRN Q4HRS PRN PO PAIN Last administered on 01/18/18at 13:24; Start 01/15/18 at 00:15 Pioglitazone HCl (Actos) 15 mg DAILYWBKFT PO Last administered on 01/20/18at 09: 18; Start 01/15/18 at 08:00 Ascorbic Acid (Vitamin C) 500 mg DAILY PO Last administered on 01/20/18at 09:18 ; Start 01/15/18 at 09:00 Artificial Tears (Artificial Tears) 1 drop PRN TID PRN OU DRY EYE; Start at 00:15 Glimepiride (Amaryl) 1 mg DAILY PO Last administered on 01/20/18at 09:19; Start 01/15/18 at 09:00 Guaifenesin (Robitussin Dm) 10 ml PRN Q4HRS PRN PO COUGH; Start 01/15/18 at 00: 15 Loperamide HCl (Imodium) 2 mg PRN Q4HRS PRN PO DIARRHEA; Start 01/15/18 at 00:15 Ondansetron HCl (Zofran Odt) 4 mg PRN Q4HRS PRN PO NAUSEA/VOMITING; Start at 00:15 Famotidine (Pepcid) 20 mg BID PO Last administered on 01/20/18at 09:18; Start at 09:00 Melatonin 6 mg QHS PO Last administered on 01/19/18at 19:50; Start 01/15/18 at 21 :00 Duloxetine HCl (Cymbalta) 30 mg DAILY PO Last administered on 01/18/18at 08:12; Start 01/17/18 at 09:00; Stop 01/18/18 at 23:30; Status DC Duloxetine HCl (Cymbalta) 60 mg DAILY PO Last administered on 01/20/18at 09:18; Start 01/19/18 at 09:00 Celecoxib (CeleBREX) 100 mg BID PO Last administered on 01/20/18at 09:21; Start 01/17/18 at 21:00 Active Scripts Active Reported Zantac (Ranitidine Hcl) 150 Mg Tablet 150 Mg PO BID Vitamin C (Ascorbate Calcium) 500 Mg Tablet 500 Mg PO DAILY Robitussin Cough-Chest Dm Liq (Guaifenesin/Dextromethorphan) 237 Ml Liquid 10 Ml PO PRN Q4HRS PRN Percocet 10-325 Mg Tablet (Oxycodone Hcl/Acetaminophen) 1 Each Tablet 1 Tab PO PRN Q4HRS PRN Percocet 10-325 Mg Tablet (Oxycodone Hcl/Acetaminophen) 1 Each Tablet 1 Tab PO BID Ondansetron Hcl 4 Mg Tablet 4 Mg PO PRN Q4HRS PRN Nystatin 15 Gm Powder 1 Sam TP PRN TID PRN Nitrostat (Nitroglycerin) 0.4 Mg Tab.subl 0.4 Mg SL PRN Q5MIN PRN MDD 3tabs Naprosyn (Naproxen) 500 Mg Tablet 500 Mg PO PRN Q12HR PRN Melatonin 5 Mg Tablet (Melatonin/Pyridoxine) 1 Each Tablet 5 Mg PO PRN QHS PRN Loperamide (Loperamide Hcl) 2 Mg Tablet 2 Mg PO PRN Q4HRS PRN MDD 16mg Keppra (Levetiracetam) 500 Mg Tablet 500 Mg PO BID Ferrous Sulfate 325 Mg Tablet 325 Mg PO DAILY Neurontin (Gabapentin) 300 Mg Capsule 300 Mg PO TID Voltaren (Diclofenac Sodium) 100 Gm Gel..gram. 4 Gm TP PRN QID PRN Budesonide 0.5 Mg/2 Ml Ampul.neb 0.5 Mg NEB PRN BID PRN Dicyclomine Hcl 10 Mg Capsule 10 Mg PO PRN Q8HRS PRN Benadryl (Diphenhydramine Hcl) 25 Mg Capsule 25 Mg PO QHS Artificial Tears Eye Drops (Dextran 70/Hypromellose) 15 Ml Drops 1 Drop OU TID PRN Anusol-Hc (Hydrocortisone Acetate) 25 Mg Supp.rect 25 Mg RC PRN Q12HR PRN Anusol-Hc (Hydrocortisone) 30 Gm Cream..g. 1 Sam RC PRN Q24HRS PRN Norvasc (Amlodipine Besylate) 10 Mg Tablet 10 Mg PO DAILY Amaryl (Glimepiride) 1 Mg Tablet 1 Mg PO DAILY Alprazolam 0.5 Mg Tablet 0.5 Mg PO BID Tylenol (Acetaminophen) 325 Mg Tablet 650 Mg PO PRN Q4HRS PRN Albuterol Sulfate Neb Soln (Albuterol Sulfate) 2.5 Mg/3 Ml Vial.neb 2.5 Mg NEB PRN Q4HRS PRN Zoloft (Sertraline Hcl) 100 Mg Tablet 150 Mg PO DAILY Milk Of Magnesia (Magnesium Hydroxide) 400 Mg/5 Ml Oral.susp 2,400 Mg PO PRN QHS PRN Alprazolam 0.25 Mg Tablet 0.25 Mg PO PRN Q8HRS PRN Actos (Pioglitazone Hcl) 15 Mg Tablet 15 Mg PO DAILYWBKFT I have reviewed the current psychotropics carefully including drug interactions. Risk benefit ratio favors no change other than as noted in my dictated progress note. Diagnosis: Problems: (1) Prerenal azotemia (2) Depression (3) Hyperglycemia (4) Suicidal ideation (5) Anxiety disorder (6) Impulse control disorder (7) Major depressive disorder, recurrent episode (8) Mild cognitive impairment BEA SAWANT MD Jan 20, 2018 20:54
[2018-01-20] MEDS: diphenhydrAMINE HCL 25 MG CAPSULE PO SCH (21:00)
[2018-01-20] MEDS: MELATONIN 3 MG TABLET PO SCH (21:00)
[2018-01-21 06:38] VITALS: BP 140/59
[2018-01-21] MEDS: levETIRAcetam 500 MG TABLET PO SCH ×2 (08:44→20:28)
[2018-01-21] MEDS: DULoxetine HCL 60 MG CAPSULE.DR PO SCH (08:44)
[2018-01-21] MEDS: GLIMEPIRIDE 2 MG TABLET PO SCH (08:45)
[2018-01-21] MEDS: PIOGLITAZONE 15 MG TABLET. PO SCH (08:45)
[2018-01-21] MEDS: ASCORBIC ACID 500 MG TABLET PO SCH (08:45)
[2018-01-21] MEDS: FERROUS SULFATE 325 MG TABLET. PO SCH (08:46)
[2018-01-21] MEDS: amLODIPine BESYLATE 10 MG TABLET PO SCH (08:46)
[2018-01-21] MEDS: CELECOXIB 100 MG CAPSULE PO SCH ×2 (08:46→20:28)
[2018-01-21] MEDS: GABAPENTIN 300 MG CAPSULE. PO SCH ×3 (08:46→20:27)
[2018-01-21] MEDS: FAMOTIDINE 20 MG TABLET PO SCH ×2 (08:47→20:28)
[2018-01-21] MEDS: oxyCODONE/APAP 10/325 1 TAB TABLET PO SCH ×2 (08:48→20:27)
[2018-01-21] MEDS: ALPRAZolam 0.5 MG TABLET PO SCH ×2 (08:48→20:28)
[2018-01-21] MEDS: DICLOFENAC SODIUM 1% TOPICAL GEL 100GM TUBE. TP PRN ×2 (14:22→21:38)
[2018-01-21 16:16] VITALS: BP 160/81
[2018-01-21] MEDS: diphenhydrAMINE HCL 25 MG CAPSULE PO SCH (20:27)
[2018-01-21] MEDS: MELATONIN 3 MG TABLET PO SCH (20:27)
--- NOTE | 2018-01-21 20:50 | PDOC ---
Exam Note: Neal Note: Please also refer to the separate dictated note~for this date of service dictated separately.~Patient seen individually. Discussed the patient with Nursing staff reviewed the chart.~Reviewed interim history and current functioning. Reviewed vital signs,~Labs/ Radiology~and current medications noted below. Continue current treatment with the changes noted in the dictated addendum note Assessment: Vital Signs: Vital Signs Date Time Temp Pulse Resp B/P (MAP) Pulse Ox O2 Delivery O2 Flow Rate FiO2 01/21/18 16:16 97.8 83 16 160/81 (107) 100 01/19/18 06:34 Room Air I&O Intake and Output 01/21/18 07:00 Intake Total 1080 ml Balance 1080 ml Intake Oral 1080 ml Labs: Laboratory Tests Test 01/21/18 07:15 Glucose (Fingerstick) 72 mg/dL (70-99) Current Medications: Meds: Current Medications Acetaminophen (Tylenol) 650 mg 1X ONCE PO Last administered on 01/14/18at 20:17 ; Start 01/14/18 at 20:15; Stop 01/14/18 at 20:16; Status DC Sodium Chloride 1,000 ml @ 1,000 mls/hr 1X ONCE IV Last administered on at 21:00; Start 01/14/18 at 20:30; Stop 01/14/18 at 21:29; Status DC Acetaminophen (Tylenol) 650 mg PRN Q6HRS PRN PO PAIN / TEMP; Start 01/15/18 at 00:00 Al Hydroxide/Mg Hydroxide (Mylanta Plus Xs) 15 ml PRN AFTMEALHC PRN PO DYSPEPSIA; Start 01/15/18 at 00:00 Magnesium Hydroxide (Milk Of Magnesia) 2,400 mg PRN QHS PRN PO CONSTIPATION Last administered on 01/19/18at 20:45; Start 01/15/18 at 00:00 Alprazolam (Xanax) 0.25 mg PRN Q8HRS PRN PO ANXIETY / AGITATION Last administered on 01/18/18at 10:50; Start 01/15/18 at 00:00 Alprazolam (Xanax) 0.5 mg BID PO Last administered on 01/21/18at 20:28; Start at 09:00 Sertraline HCl (Zoloft) 150 mg DAILY PO Last administered on 01/16/18at 07:42; Start 01/15/18 at 09:00; Stop 01/16/18 at 16:24; Status DC Non-Formulary Medication (Melatonin/ Pyridoxine (Melatonin 5 Mg Tablet)) 5 mg PRN QHS PRN PO INSOMNIA; Start 01/15/18 at 00:00; Stop 01/15/18 at 04:40; Status DC Albuterol Sulfate (Ventolin) 2.5 mg PRN Q4HRS PRN NEB Dyspnea; Start 01/15/18 at 00:15 Amlodipine Besylate (Norvasc) 10 mg DAILY PO Last administered on 01/21/18at 08: 46; Start 01/15/18 at 09:00 Budesonide (Pulmicort) 0.5 mg PRN BID PRN NEB SHORTNESS OF BREATH; Start at 00:15 Diclofenac Sodium (Voltaren) 4 sam PRN QID PRN TP R Knee Pain Last administered on 01/21/18at 14:22; Start 01/15/18 at 00:15 Dicyclomine HCl (Bentyl) 10 mg PRN Q8HRS PRN PO Bowel Cramps; Start 01/15/18 at 00:15 Diphenhydramine HCl (Benadryl) 25 mg QHS PO Last administered on 01/21/18at 20: 27; Start 01/15/18 at 21:00 Ferrous Sulfate (Feosol) 325 mg DAILY PO Last administered on 01/21/18at 08:46; Start 01/15/18 at 09:00 Gabapentin (Neurontin) 300 mg TID PO Last administered on 01/21/18at 20:27; Start 01/15/18 at 09:00 Hydrocortisone (Proctosol-Hc) 1 sam PRN Q24HRS PRN RC Hemorrhoids; Start at 00:15 Hydrocortisone Acetate (Anucort-Hc) 25 mg PRN Q12HR PRN RC Hemorroids; Start at 00:15 Levetiracetam (Keppra) 500 mg BID PO Last administered on 01/21/18at 20:28; Start 01/15/18 at 09:00 Magnesium Hydroxide (Milk Of Magnesia) 2,400 mg PRN QHS PRN PO CONSTIPATION; Start 01/15/18 at 00:15; Status UNV Nitroglycerin (Nitrostat) 0.4 mg PRN Q5MIN PRN SL CHEST PAIN; Start 01/15/18 at 00:15 Nystatin (Nystop) 1 sam PRN TID PRN TP REDNESS; Start 01/15/18 at 00:15 Oxycodone/ Acetaminophen (Percocet 10/325) 1 tab BID PO Last administered on 20:27; Start 01/15/18 at 09:00 Oxycodone/ Acetaminophen (Percocet 10/325) 1 tab PRN Q4HRS PRN PO PAIN Last administered on 01/18/18 13:24; Start 01/15/18 at 00:15 Pioglitazone HCl (Actos) 15 mg DAILYWBKFT PO Last administered on 01/21/18at 08: 45; Start 01/15/18 at 08:00 Ascorbic Acid (Vitamin C) 500 mg DAILY PO Last administered on 01/21/18at 08:45 ; Start 01/15/18 at 09:00 Artificial Tears (Artificial Tears) 1 drop PRN TID PRN OU DRY EYE; Start at 00:15 Glimepiride (Amaryl) 1 mg DAILY PO Last administered on 01/21/18at 08:45; Start 01/15/18 at 09:00 Guaifenesin (Robitussin Dm) 10 ml PRN Q4HRS PRN PO COUGH; Start 01/15/18 at 00: 15 Loperamide HCl (Imodium) 2 mg PRN Q4HRS PRN PO DIARRHEA; Start 01/15/18 at 00:15 Ondansetron HCl (Zofran Odt) 4 mg PRN Q4HRS PRN PO NAUSEA/VOMITING; Start at 00:15 Famotidine (Pepcid) 20 mg BID PO Last administered on 01/21/18 20:28; Start at 09:00 Melatonin 6 mg QHS PO Last administered on 01/21/18 20:27; Start 01/15/18 at 21 :00 Duloxetine HCl (Cymbalta) 30 mg DAILY PO Last administered on 01/18/18at 08:12; Start 01/17/18 at 09:00; Stop 01/18/18 at 23:30; Status DC Duloxetine HCl (Cymbalta) 60 mg DAILY PO Last administered on 01/21/18at 08:44; Start 01/19/18 at 09:00 Celecoxib (CeleBREX) 100 mg BID PO Last administered on 01/21/18at 20:28; Start 01/17/18 at 21:00 Active Scripts Active Reported Zantac (Ranitidine Hcl) 150 Mg Tablet 150 Mg PO BID Vitamin C (Ascorbate Calcium) 500 Mg Tablet 500 Mg PO DAILY Robitussin Cough-Chest Dm Liq (Guaifenesin/Dextromethorphan) 237 Ml Liquid 10 Ml PO PRN Q4HRS PRN Percocet 10-325 Mg Tablet (Oxycodone Hcl/Acetaminophen) 1 Each Tablet 1 Tab PO PRN Q4HRS PRN Percocet 10-325 Mg Tablet (Oxycodone Hcl/Acetaminophen) 1 Each Tablet 1 Tab PO BID Ondansetron Hcl 4 Mg Tablet 4 Mg PO PRN Q4HRS PRN Nystatin 15 Gm Powder 1 Sam TP PRN TID PRN Nitrostat (Nitroglycerin) 0.4 Mg Tab.subl 0.4 Mg SL PRN Q5MIN PRN MDD 3tabs Naprosyn (Naproxen) 500 Mg Tablet 500 Mg PO PRN Q12HR PRN Melatonin 5 Mg Tablet (Melatonin/Pyridoxine) 1 Each Tablet 5 Mg PO PRN QHS PRN Loperamide (Loperamide Hcl) 2 Mg Tablet 2 Mg PO PRN Q4HRS PRN MDD 16mg Keppra (Levetiracetam) 500 Mg Tablet 500 Mg PO BID Ferrous Sulfate 325 Mg Tablet 325 Mg PO DAILY Neurontin (Gabapentin) 300 Mg Capsule 300 Mg PO TID Voltaren (Diclofenac Sodium) 100 Gm Gel..gram. 4 Gm TP PRN QID PRN Budesonide 0.5 Mg/2 Ml Ampul.neb 0.5 Mg NEB PRN BID PRN Dicyclomine Hcl 10 Mg Capsule 10 Mg PO PRN Q8HRS PRN Benadryl (Diphenhydramine Hcl) 25 Mg Capsule 25 Mg PO QHS Artificial Tears Eye Drops (Dextran 70/Hypromellose) 15 Ml Drops 1 Drop OU TID PRN Anusol-Hc (Hydrocortisone Acetate) 25 Mg Supp.rect 25 Mg RC PRN Q12HR PRN Anusol-Hc (Hydrocortisone) 30 Gm Cream..g. 1 Sam RC PRN Q24HRS PRN Norvasc (Amlodipine Besylate) 10 Mg Tablet 10 Mg PO DAILY Amaryl (Glimepiride) 1 Mg Tablet 1 Mg PO DAILY Alprazolam 0.5 Mg Tablet 0.5 Mg PO BID Tylenol (Acetaminophen) 325 Mg Tablet 650 Mg PO PRN Q4HRS PRN Albuterol Sulfate Neb Soln (Albuterol Sulfate) 2.5 Mg/3 Ml Vial.neb 2.5 Mg NEB PRN Q4HRS PRN Zoloft (Sertraline Hcl) 100 Mg Tablet 150 Mg PO DAILY Milk Of Magnesia (Magnesium Hydroxide) 400 Mg/5 Ml Oral.susp 2,400 Mg PO PRN QHS PRN Alprazolam 0.25 Mg Tablet 0.25 Mg PO PRN Q8HRS PRN Actos (Pioglitazone Hcl) 15 Mg Tablet 15 Mg PO DAILYWBKFT I have reviewed the current psychotropics carefully including drug interactions. Risk benefit ratio favors no change other than as noted in my dictated progress note. Diagnosis: Problems: (1) Prerenal azotemia (2) Depression (3) Hyperglycemia (4) Suicidal ideation (5) Anxiety disorder (6) Impulse control disorder (7) Major depressive disorder, recurrent episode (8) Mild cognitive impairment BEA SAWANT MD Jan 21, 2018 20:50
--- NOTE | 2018-01-21 21:59 | PN ---
DATE: 01/19/2018 This late entry 01/19/2018 covers elements not covered in my initial note 01/19/2018. SUBJECTIVE: I met with the patient evening of 01/19/2018. The patient slept 9 hours previous evening, had a good day per nursing report, slightly improved in her mood. Denies suicidal ideation, attended groups. REVIEW OF SYSTEMS: Ambulation impaired with walker. No CV, , pulmonary, eye, ENT system symptoms on review. MENTAL STATUS EXAM: Oriented to herself and situation. Speech moderate latency, often responses monosyllabic. Abstraction fair, computation impaired, language function intact, attention span short. Mood and affect still depressed, but showing improvement. No active suicidal ideation. LABORATORY DATA: Reviewed. IMPRESSION: Major depressive disorder with psychotic features. Rest unchanged. PLAN: Continue psychotropics mentioned in my initial note. MAN Farrah SAWANT MD DR: MARK/daphne JOB#: [id number] / [id number]
--- NOTE | 2018-01-22 04:17 | PN ---
DATE: 01/20/2018 This late entry for 01/20/2018 covers elements not covered in my initial note of 01/20/2018. SUBJECTIVE: I met with the patient evening of 01/20/2018 and seen and staffed at a treatment team meeting morning of 01/20/2018 with the entire team. She has been cooperative, still somewhat depressed, but denies active suicidal ideation. REVIEW OF SYSTEMS: No CV, , pulmonary, eye, ENT system symptoms on review. MENTAL STATUS EXAM: Reasonably oriented. Speech has some latency, often responses monosyllabic, coherent. Abstraction fair, computation impaired, language function intact, attention span short. Mood and affect still somewhat depressed, withdrawn, better than before. LABORATORY DATA: Reviewed. IMPRESSION: Major depressive disorder in partial remission. Rest unchanged. PLAN: Continue psychotropics mentioned in my initial note. MAN Farrah SAWANT MD DR: MARK/daphne JOB#: [id number] / [id number]
[2018-01-22 06:29] VITALS: BP 136/53
[2018-01-22] MEDS: PIOGLITAZONE 15 MG TABLET. PO SCH (07:53)
[2018-01-22] MEDS: oxyCODONE/APAP 10/325 1 TAB TABLET PO SCH ×2 (07:53→20:50)
[2018-01-22] MEDS: levETIRAcetam 500 MG TABLET PO SCH ×2 (07:53→20:46)
[2018-01-22] MEDS: CELECOXIB 100 MG CAPSULE PO SCH ×2 (07:53→20:50)
[2018-01-22] MEDS: GABAPENTIN 300 MG CAPSULE. PO SCH ×3 (07:53→20:46)
[2018-01-22] MEDS: ASCORBIC ACID 500 MG TABLET PO SCH (07:53)
[2018-01-22] MEDS: FERROUS SULFATE 325 MG TABLET. PO SCH (07:53)
[2018-01-22] MEDS: DULoxetine HCL 60 MG CAPSULE.DR PO SCH (07:54)
[2018-01-22] MEDS: FAMOTIDINE 20 MG TABLET PO SCH ×2 (07:54→20:46)
[2018-01-22] MEDS: ALPRAZolam 0.5 MG TABLET PO SCH ×2 (07:54→20:50)
[2018-01-22] MEDS: GLIMEPIRIDE 2 MG TABLET PO SCH (07:55)
[2018-01-22] MEDS: amLODIPine BESYLATE 10 MG TABLET PO SCH (07:55)
[2018-01-22] MEDS: DICLOFENAC SODIUM 1% TOPICAL GEL 100GM TUBE. TP PRN (14:36)
[2018-01-22 16:28] VITALS: BP 152/96
--- NOTE | 2018-01-22 19:47 | PDOC ---
Exam Note: Neal Note: Please also refer to the separate dictated note~for this date of service dictated separately.~Patient seen individually. Discussed the patient with Nursing staff reviewed the chart.~Reviewed interim history and current functioning. Reviewed vital signs,~Labs/ Radiology~and current medications noted below. Continue current treatment with the changes noted in the dictated addendum note Assessment: Vital Signs: Vital Signs Date Time Temp Pulse Resp B/P (MAP) Pulse Ox O2 Delivery O2 Flow Rate FiO2 01/22/18 16:28 98.0 85 18 152/96 (114) 99 Room Air I&O Intake and Output 01/22/18 07:00 Intake Total 1440 ml Balance 1440 ml Intake Oral 1440 ml # Bowel Movements 1 Labs: Laboratory Tests Test 01/22/18 07:53 01/22/18 11:39 Glucose (Fingerstick) 81 mg/dL (70-99) 107 mg/dL (70-99) H Current Medications: Meds: Current Medications Acetaminophen (Tylenol) 650 mg 1X ONCE PO Last administered on 01/14/18at 20:17 ; Start 01/14/18 at 20:15; Stop 01/14/18 at 20:16; Status DC Sodium Chloride 1,000 ml @ 1,000 mls/hr 1X ONCE IV Last administered on at 21:00; Start 01/14/18 at 20:30; Stop 01/14/18 at 21:29; Status DC Acetaminophen (Tylenol) 650 mg PRN Q6HRS PRN PO PAIN / TEMP; Start 01/15/18 at 00:00 Al Hydroxide/Mg Hydroxide (Mylanta Plus Xs) 15 ml PRN AFTMEALHC PRN PO DYSPEPSIA; Start 01/15/18 at 00:00 Magnesium Hydroxide (Milk Of Magnesia) 2,400 mg PRN QHS PRN PO CONSTIPATION Last administered on 01/19/18at 20:45; Start 01/15/18 at 00:00 Alprazolam (Xanax) 0.25 mg PRN Q8HRS PRN PO ANXIETY / AGITATION Last administered on 01/18/18at 10:50; Start 01/15/18 at 00:00 Alprazolam (Xanax) 0.5 mg BID PO Last administered on 01/22/18at 07:54; Start at 09:00 Sertraline HCl (Zoloft) 150 mg DAILY PO Last administered on 01/16/18at 07:42; Start 01/15/18 at 09:00; Stop 01/16/18 at 16:24; Status DC Non-Formulary Medication (Melatonin/ Pyridoxine (Melatonin 5 Mg Tablet)) 5 mg PRN QHS PRN PO INSOMNIA; Start 01/15/18 at 00:00; Stop 01/15/18 at 04:40; Status DC Albuterol Sulfate (Ventolin) 2.5 mg PRN Q4HRS PRN NEB Dyspnea; Start 01/15/18 at 00:15 Amlodipine Besylate (Norvasc) 10 mg DAILY PO Last administered on 01/22/18at 07: 55; Start 01/15/18 at 09:00 Budesonide (Pulmicort) 0.5 mg PRN BID PRN NEB SHORTNESS OF BREATH; Start at 00:15 Diclofenac Sodium (Voltaren) 4 sam PRN QID PRN TP R Knee Pain Last administered on 01/22/18at 14:36; Start 01/15/18 at 00:15 Dicyclomine HCl (Bentyl) 10 mg PRN Q8HRS PRN PO Bowel Cramps; Start 01/15/18 at 00:15 Diphenhydramine HCl (Benadryl) 25 mg QHS PO Last administered on 01/21/18at 20: 27; Start 01/15/18 at 21:00 Ferrous Sulfate (Feosol) 325 mg DAILY PO Last administered on 01/22/18at 07:53; Start 01/15/18 at 09:00 Gabapentin (Neurontin) 300 mg TID PO Last administered on 01/22/18at 14:35; Start 01/15/18 at 09:00 Hydrocortisone (Proctosol-Hc) 1 sam PRN Q24HRS PRN RC Hemorrhoids; Start at 00:15 Hydrocortisone Acetate (Anucort-Hc) 25 mg PRN Q12HR PRN RC Hemorroids; Start at 00:15 Levetiracetam (Keppra) 500 mg BID PO Last administered on 01/22/18at 07:53; Start 01/15/18 at 09:00 Magnesium Hydroxide (Milk Of Magnesia) 2,400 mg PRN QHS PRN PO CONSTIPATION; Start 01/15/18 at 00:15; Status UNV Nitroglycerin (Nitrostat) 0.4 mg PRN Q5MIN PRN SL CHEST PAIN; Start 01/15/18 at 00:15 Nystatin (Nystop) 1 sam PRN TID PRN TP REDNESS; Start 01/15/18 at 00:15 Oxycodone/ Acetaminophen (Percocet 10/325) 1 tab BID PO Last administered on 07:53; Start 01/15/18 at 09:00 Oxycodone/ Acetaminophen (Percocet 10/325) 1 tab PRN Q4HRS PRN PO PAIN Last administered on 01/18/18 13:24; Start 01/15/18 at 00:15 Pioglitazone HCl (Actos) 15 mg DAILYWBKFT PO Last administered on 01/22/18 07: 53; Start 01/15/18 at 08:00 Ascorbic Acid (Vitamin C) 500 mg DAILY PO Last administered on 01/22/18 07:53 ; Start 01/15/18 at 09:00 Artificial Tears (Artificial Tears) 1 drop PRN TID PRN OU DRY EYE; Start at 00:15 Glimepiride (Amaryl) 1 mg DAILY PO Last administered on 01/22/18 07:55; Start 01/15/18 at 09:00 Guaifenesin (Robitussin Dm) 10 ml PRN Q4HRS PRN PO COUGH; Start 01/15/18 at 00: 15 Loperamide HCl (Imodium) 2 mg PRN Q4HRS PRN PO DIARRHEA; Start 01/15/18 at 00:15 Ondansetron HCl (Zofran Odt) 4 mg PRN Q4HRS PRN PO NAUSEA/VOMITING; Start at 00:15 Famotidine (Pepcid) 20 mg BID PO Last administered on 01/22/18 07:54; Start at 09:00 Melatonin 6 mg QHS PO Last administered on 01/21/18at 20:27; Start 01/15/18 at 21 :00 Duloxetine HCl (Cymbalta) 30 mg DAILY PO Last administered on 4/10/18at 08:12; Start 01/17/18 at 09:00; Stop 01/18/18 at 23:30; Status DC Duloxetine HCl (Cymbalta) 60 mg DAILY PO Last administered on 01/22/18at 07:54; Start 01/19/18 at 09:00 Celecoxib (CeleBREX) 100 mg BID PO Last administered on 01/22/18at 07:53; Start 01/17/18 at 21:00 Active Scripts Active Reported Zantac (Ranitidine Hcl) 150 Mg Tablet 150 Mg PO BID Vitamin C (Ascorbate Calcium) 500 Mg Tablet 500 Mg PO DAILY Robitussin Cough-Chest Dm Liq (Guaifenesin/Dextromethorphan) 237 Ml Liquid 10 Ml PO PRN Q4HRS PRN Percocet 10-325 Mg Tablet (Oxycodone Hcl/Acetaminophen) 1 Each Tablet 1 Tab PO PRN Q4HRS PRN Percocet 10-325 Mg Tablet (Oxycodone Hcl/Acetaminophen) 1 Each Tablet 1 Tab PO BID Ondansetron Hcl 4 Mg Tablet 4 Mg PO PRN Q4HRS PRN Nystatin 15 Gm Powder 1 Sam TP PRN TID PRN Nitrostat (Nitroglycerin) 0.4 Mg Tab.subl 0.4 Mg SL PRN Q5MIN PRN MDD 3tabs Naprosyn (Naproxen) 500 Mg Tablet 500 Mg PO PRN Q12HR PRN Melatonin 5 Mg Tablet (Melatonin/Pyridoxine) 1 Each Tablet 5 Mg PO PRN QHS PRN Loperamide (Loperamide Hcl) 2 Mg Tablet 2 Mg PO PRN Q4HRS PRN MDD 16mg Keppra (Levetiracetam) 500 Mg Tablet 500 Mg PO BID Ferrous Sulfate 325 Mg Tablet 325 Mg PO DAILY Neurontin (Gabapentin) 300 Mg Capsule 300 Mg PO TID Voltaren (Diclofenac Sodium) 100 Gm Gel..gram. 4 Gm TP PRN QID PRN Budesonide 0.5 Mg/2 Ml Ampul.neb 0.5 Mg NEB PRN BID PRN Dicyclomine Hcl 10 Mg Capsule 10 Mg PO PRN Q8HRS PRN Benadryl (Diphenhydramine Hcl) 25 Mg Capsule 25 Mg PO QHS Artificial Tears Eye Drops (Dextran 70/Hypromellose) 15 Ml Drops 1 Drop OU TID PRN Anusol-Hc (Hydrocortisone Acetate) 25 Mg Supp.rect 25 Mg RC PRN Q12HR PRN Anusol-Hc (Hydrocortisone) 30 Gm Cream..g. 1 Sam RC PRN Q24HRS PRN Norvasc (Amlodipine Besylate) 10 Mg Tablet 10 Mg PO DAILY Amaryl (Glimepiride) 1 Mg Tablet 1 Mg PO DAILY Alprazolam 0.5 Mg Tablet 0.5 Mg PO BID Tylenol (Acetaminophen) 325 Mg Tablet 650 Mg PO PRN Q4HRS PRN Albuterol Sulfate Neb Soln (Albuterol Sulfate) 2.5 Mg/3 Ml Vial.neb 2.5 Mg NEB PRN Q4HRS PRN Zoloft (Sertraline Hcl) 100 Mg Tablet 150 Mg PO DAILY Milk Of Magnesia (Magnesium Hydroxide) 400 Mg/5 Ml Oral.susp 2,400 Mg PO PRN QHS PRN Alprazolam 0.25 Mg Tablet 0.25 Mg PO PRN Q8HRS PRN Actos (Pioglitazone Hcl) 15 Mg Tablet 15 Mg PO DAILYWBKFT I have reviewed the current psychotropics carefully including drug interactions. Risk benefit ratio favors no change other than as noted in my dictated progress note. BEA SAWANT MD Jan 22, 2018 19:47
[2018-01-22] MEDS: MELATONIN 3 MG TABLET PO SCH (20:46)
[2018-01-22] MEDS: diphenhydrAMINE HCL 25 MG CAPSULE PO SCH (20:46)
[2018-01-23 06:22] VITALS: BP 158/86
[2018-01-23 07:48] VITALS: BP 165/87
[2018-01-23] MEDS: GABAPENTIN 300 MG CAPSULE. PO SCH ×3 (08:36→20:18)
[2018-01-23] MEDS: FERROUS SULFATE 325 MG TABLET. PO SCH (08:36)
[2018-01-23] MEDS: PIOGLITAZONE 15 MG TABLET. PO SCH (08:37)
[2018-01-23] MEDS: DULoxetine HCL 60 MG CAPSULE.DR PO SCH (08:37)
[2018-01-23] MEDS: FAMOTIDINE 20 MG TABLET PO SCH ×2 (08:37→20:18)
[2018-01-23] MEDS: GLIMEPIRIDE 2 MG TABLET PO SCH (08:37)
[2018-01-23] MEDS: amLODIPine BESYLATE 10 MG TABLET PO SCH (08:39)
[2018-01-23] MEDS: levETIRAcetam 500 MG TABLET PO SCH ×2 (08:39→20:18)
[2018-01-23] MEDS: ALPRAZolam 0.5 MG TABLET PO SCH ×2 (08:39→20:19)
[2018-01-23] MEDS: CELECOXIB 100 MG CAPSULE PO SCH ×2 (08:39→20:20)
[2018-01-23] MEDS: oxyCODONE/APAP 10/325 1 TAB TABLET PO SCH ×2 (08:39→20:19)
[2018-01-23] MEDS: ASCORBIC ACID 500 MG TABLET PO SCH (08:39)
[2018-01-23] MEDS: DICLOFENAC SODIUM 1% TOPICAL GEL 100GM TUBE. TP PRN (09:51)
[2018-01-23] MEDS: oxyCODONE/APAP 10/325 1 TAB TABLET PO PRN (11:56)
--- NOTE | 2018-01-23 16:38 | RAD ---
EXAM: Left shoulder 3 views. HISTORY: Fall with left shoulder pain. COMPARISON: None. FINDINGS: No fractures are identified. Acromioclavicular osteoarthritis is mild for patient age. Small ossicles at the tip of the acromion may be enthesopathic rather than small os acromiale. There is mild lateral acromial downsloping. Glenohumeral joint spaces and alignment appear maintained. There are atherosclerotic calcifications of the aorta. IMPRESSION: 1. No fracture or malalignment. Mild acromioclavicular osteoarthritis.
[2018-01-23 16:52] VITALS: BP 167/88
[2018-01-23] MEDS: diphenhydrAMINE HCL 25 MG CAPSULE PO SCH (20:18)
[2018-01-23] MEDS: MELATONIN 3 MG TABLET PO SCH (20:19)
--- NOTE | 2018-01-23 22:13 | PDOC ---
Exam Note: Neal Note: Please also refer to the separate dictated note~for this date of service dictated separately.~Patient seen individually. Discussed the patient with Nursing staff reviewed the chart.~Reviewed interim history and current functioning. Reviewed vital signs,~Labs/ Radiology~and current medications noted below. Continue current treatment with the changes noted in the dictated addendum note Assessment: Vital Signs: Vital Signs Date Time Temp Pulse Resp B/P (MAP) Pulse Ox O2 Delivery O2 Flow Rate FiO2 01/23/18 16:52 97.4 80 19 167/88 (114) 95 01/23/18 07:48 Room Air I&O Intake and Output 01/23/18 07:00 Intake Total 1200 ml Balance 1200 ml Intake Oral 1200 ml Labs: Laboratory Tests Test 01/23/18 07:08 01/23/18 11:08 Glucose (Fingerstick) 67 mg/dL (70-99) L 137 mg/dL (70-99) H Current Medications: Meds: Current Medications Acetaminophen (Tylenol) 650 mg 1X ONCE PO Last administered on 01/14/18at 20:17 ; Start 01/14/18 at 20:15; Stop 01/14/18 at 20:16; Status DC Sodium Chloride 1,000 ml @ 1,000 mls/hr 1X ONCE IV Last administered on at 21:00; Start 01/14/18 at 20:30; Stop 01/14/18 at 21:29; Status DC Acetaminophen (Tylenol) 650 mg PRN Q6HRS PRN PO PAIN / TEMP; Start 01/15/18 at 00:00 Al Hydroxide/Mg Hydroxide (Mylanta Plus Xs) 15 ml PRN AFTMEALHC PRN PO DYSPEPSIA; Start 01/15/18 at 00:00 Magnesium Hydroxide (Milk Of Magnesia) 2,400 mg PRN QHS PRN PO CONSTIPATION Last administered on 01/19/18at 20:45; Start 01/15/18 at 00:00 Alprazolam (Xanax) 0.25 mg PRN Q8HRS PRN PO ANXIETY / AGITATION Last administered on 01/18/18at 10:50; Start 01/15/18 at 00:00 Alprazolam (Xanax) 0.5 mg BID PO Last administered on 01/23/18at 20:19; Start at 09:00 Sertraline HCl (Zoloft) 150 mg DAILY PO Last administered on 01/16/18at 07:42; Start 01/15/18 at 09:00; Stop 01/16/18 at 16:24; Status DC Non-Formulary Medication (Melatonin/ Pyridoxine (Melatonin 5 Mg Tablet)) 5 mg PRN QHS PRN PO INSOMNIA; Start 01/15/18 at 00:00; Stop 01/15/18 at 04:40; Status DC Albuterol Sulfate (Ventolin) 2.5 mg PRN Q4HRS PRN NEB Dyspnea; Start 01/15/18 at 00:15 Amlodipine Besylate (Norvasc) 10 mg DAILY PO Last administered on 01/23/18at 08: 39; Start 01/15/18 at 09:00 Budesonide (Pulmicort) 0.5 mg PRN BID PRN NEB SHORTNESS OF BREATH; Start at 00:15 Diclofenac Sodium (Voltaren) 4 sam PRN QID PRN TP R Knee Pain Last administered on 01/23/18at 09:51; Start 01/15/18 at 00:15 Dicyclomine HCl (Bentyl) 10 mg PRN Q8HRS PRN PO Bowel Cramps; Start 01/15/18 at 00:15 Diphenhydramine HCl (Benadryl) 25 mg QHS PO Last administered on 01/23/18at 20: 18; Start 01/15/18 at 21:00 Ferrous Sulfate (Feosol) 325 mg DAILY PO Last administered on 01/23/18at 08:36; Start 01/15/18 at 09:00 Gabapentin (Neurontin) 300 mg TID PO Last administered on 01/23/18 20:18; Start 01/15/18 at 09:00 Hydrocortisone (Proctosol-Hc) 1 sam PRN Q24HRS PRN RC Hemorrhoids; Start at 00:15 Hydrocortisone Acetate (Anucort-Hc) 25 mg PRN Q12HR PRN RC Hemorroids; Start at 00:15 Levetiracetam (Keppra) 500 mg BID PO Last administered on 01/23/18at 20:18; Start 01/15/18 at 09:00 Magnesium Hydroxide (Milk Of Magnesia) 2,400 mg PRN QHS PRN PO CONSTIPATION; Start 01/15/18 at 00:15; Status UNV Nitroglycerin (Nitrostat) 0.4 mg PRN Q5MIN PRN SL CHEST PAIN; Start 01/15/18 at 00:15 Nystatin (Nystop) 1 asm PRN TID PRN TP REDNESS; Start 01/15/18 at 00:15 Oxycodone/ Acetaminophen (Percocet 10/325) 1 tab BID PO Last administered on at 20:19; Start 01/15/18 at 09:00 Oxycodone/ Acetaminophen (Percocet 10/325) 1 tab PRN Q4HRS PRN PO PAIN Last administered on 01/23/18at 11:56; Start 01/15/18 at 00:15 Pioglitazone HCl (Actos) 15 mg DAILYWBKFT PO Last administered on 01/23/18at 08: 37; Start 01/15/18 at 08:00 Ascorbic Acid (Vitamin C) 500 mg DAILY PO Last administered on 01/23/18at 08:39 ; Start 01/15/18 at 09:00 Artificial Tears (Artificial Tears) 1 drop PRN TID PRN OU DRY EYE; Start at 00:15 Glimepiride (Amaryl) 1 mg DAILY PO Last administered on 01/23/18at 08:37; Start 01/15/18 at 09:00 Guaifenesin (Robitussin Dm) 10 ml PRN Q4HRS PRN PO COUGH; Start 01/15/18 at 00: 15 Loperamide HCl (Imodium) 2 mg PRN Q4HRS PRN PO DIARRHEA; Start 01/15/18 at 00:15 Ondansetron HCl (Zofran Odt) 4 mg PRN Q4HRS PRN PO NAUSEA/VOMITING; Start at 00:15 Famotidine (Pepcid) 20 mg BID PO Last administered on 01/23/18at 20:18; Start at 09:00 Melatonin 6 mg QHS PO Last administered on 01/23/18at 20:19; Start 01/15/18 at 21 :00 Duloxetine HCl (Cymbalta) 30 mg DAILY PO Last administered on 01/18/18at 08:12; Start 01/17/18 at 09:00; Stop 01/18/18 at 23:30; Status DC Duloxetine HCl (Cymbalta) 60 mg DAILY PO Last administered on 01/23/18at 08:37; Start 01/19/18 at 09:00 Celecoxib (CeleBREX) 100 mg BID PO Last administered on 01/23/18at 20:20; Start 01/17/18 at 21:00 Active Scripts Active Reported Zantac (Ranitidine Hcl) 150 Mg Tablet 150 Mg PO BID Vitamin C (Ascorbate Calcium) 500 Mg Tablet 500 Mg PO DAILY Robitussin Cough-Chest Dm Liq (Guaifenesin/Dextromethorphan) 237 Ml Liquid 10 Ml PO PRN Q4HRS PRN Percocet 10-325 Mg Tablet (Oxycodone Hcl/Acetaminophen) 1 Each Tablet 1 Tab PO PRN Q4HRS PRN Percocet 10-325 Mg Tablet (Oxycodone Hcl/Acetaminophen) 1 Each Tablet 1 Tab PO BID Ondansetron Hcl 4 Mg Tablet 4 Mg PO PRN Q4HRS PRN Nystatin 15 Gm Powder 1 Sam TP PRN TID PRN Nitrostat (Nitroglycerin) 0.4 Mg Tab.subl 0.4 Mg SL PRN Q5MIN PRN MDD 3tabs Naprosyn (Naproxen) 500 Mg Tablet 500 Mg PO PRN Q12HR PRN Melatonin 5 Mg Tablet (Melatonin/Pyridoxine) 1 Each Tablet 5 Mg PO PRN QHS PRN Loperamide (Loperamide Hcl) 2 Mg Tablet 2 Mg PO PRN Q4HRS PRN MDD 16mg Keppra (Levetiracetam) 500 Mg Tablet 500 Mg PO BID Ferrous Sulfate 325 Mg Tablet 325 Mg PO DAILY Neurontin (Gabapentin) 300 Mg Capsule 300 Mg PO TID Voltaren (Diclofenac Sodium) 100 Gm Gel..gram. 4 Gm TP PRN QID PRN Budesonide 0.5 Mg/2 Ml Ampul.neb 0.5 Mg NEB PRN BID PRN Dicyclomine Hcl 10 Mg Capsule 10 Mg PO PRN Q8HRS PRN Benadryl (Diphenhydramine Hcl) 25 Mg Capsule 25 Mg PO QHS Artificial Tears Eye Drops (Dextran 70/Hypromellose) 15 Ml Drops 1 Drop OU TID PRN Anusol-Hc (Hydrocortisone Acetate) 25 Mg Supp.rect 25 Mg RC PRN Q12HR PRN Anusol-Hc (Hydrocortisone) 30 Gm Cream..g. 1 Sam RC PRN Q24HRS PRN Norvasc (Amlodipine Besylate) 10 Mg Tablet 10 Mg PO DAILY Amaryl (Glimepiride) 1 Mg Tablet 1 Mg PO DAILY Alprazolam 0.5 Mg Tablet 0.5 Mg PO BID Tylenol (Acetaminophen) 325 Mg Tablet 650 Mg PO PRN Q4HRS PRN Albuterol Sulfate Neb Soln (Albuterol Sulfate) 2.5 Mg/3 Ml Vial.neb 2.5 Mg NEB PRN Q4HRS PRN Zoloft (Sertraline Hcl) 100 Mg Tablet 150 Mg PO DAILY Milk Of Magnesia (Magnesium Hydroxide) 400 Mg/5 Ml Oral.susp 2,400 Mg PO PRN QHS PRN Alprazolam 0.25 Mg Tablet 0.25 Mg PO PRN Q8HRS PRN Actos (Pioglitazone Hcl) 15 Mg Tablet 15 Mg PO DAILYWBKFT I have reviewed the current psychotropics carefully including drug interactions. Risk benefit ratio favors no change other than as noted in my dictated progress note. Diagnosis: Problems: (1) Depression (2) Hyperglycemia (3) Suicidal ideation (4) Anxiety disorder (5) Impulse control disorder (6) Major depressive disorder, recurrent episode (7) Mild cognitive impairment BEA SAWANT MD Jan 23, 2018 22:13
--- NOTE | 2018-01-23 23:28 | PN ---
DATE: 01/21/2018 This late entry, 01/21/2018, covers elements not covered in my initial note of 01/21/2018. SUBJECTIVE: I met with the patient the evening of 01/21/2018. Overall, the patient had a better day. Denies active suicidal ideation. Still somewhat depressed, anxious, but improved. REVIEW OF SYSTEMS: No CV, , pulmonary, eye, ENT system symptoms on review. Reliability fair. MENTAL STATUS EXAM: Oriented reasonably to herself, situations. Speech coherent, abstraction fair, computation somewhat impaired, language function intact. Mood and affect is improved. IMPRESSION: Major depressive disorder, in partial remission. Rest unchanged. PLAN: Continue psychotropics mentioned in my initial note. MAN Farrah SAWANT MD DR: MARK/daphne JOB#: [id number] / [id number]
[2018-01-24 06:11] VITALS: BP 130/59
[2018-01-24] MEDS: FAMOTIDINE 20 MG TABLET PO SCH ×2 (08:19→20:28)
[2018-01-24] MEDS: amLODIPine BESYLATE 10 MG TABLET PO SCH (08:19)
[2018-01-24] MEDS: CELECOXIB 100 MG CAPSULE PO SCH ×2 (08:19→21:04)
[2018-01-24] MEDS: DULoxetine HCL 60 MG CAPSULE.DR PO SCH (08:19)
[2018-01-24] MEDS: ALPRAZolam 0.5 MG TABLET PO SCH ×2 (08:19→20:31)
[2018-01-24] MEDS: FERROUS SULFATE 325 MG TABLET. PO SCH (08:20)
[2018-01-24] MEDS: levETIRAcetam 500 MG TABLET PO SCH ×2 (08:20→20:28)
[2018-01-24] MEDS: ASCORBIC ACID 500 MG TABLET PO SCH (08:20)
[2018-01-24] MEDS: GLIMEPIRIDE 2 MG TABLET PO SCH (08:20)
[2018-01-24] MEDS: oxyCODONE/APAP 10/325 1 TAB TABLET PO SCH ×2 (08:20→20:31)
[2018-01-24] MEDS: GABAPENTIN 300 MG CAPSULE. PO SCH ×3 (08:21→20:28)
[2018-01-24] MEDS: PIOGLITAZONE 15 MG TABLET. PO SCH (08:22)
[2018-01-24 10:03] LABS: ALBUMIN 3.5 g/dL (3.4-5.0); ALBUMIN/GLOBULIN RATIO 0.8 (1.0-1.7); CALCIUM 9.2 mg/dL (8.5-10.1); CREATININE 1.2 mg/dL (0.6-1.0); GFR 53.4; POTASSIUM 4.8 mmol/L (3.5-5.1); TOTAL BILIRUBIN 0.2 mg/dL (0.2-1.0); TOTAL PROTEIN 7.8 g/dL (6.4-8.2)
[2018-01-24 10:41] LABS: BASO % 1 % (0-3); EOS # 0.1 x10^3/uL (0.0-0.7); EOS % 2 % (0-3); HEMATOCRIT 31.8 % (36.0-47.0); HEMOGLOBIN 10.2 g/dL (12.0-15.5); LYMPH # 2.3 x10^3/uL (1.0-4.8); LYMPH % 34 % (24-48); MEAN CORPUSCULAR HEMOGLOBIN 27 pg (25-35); MEAN CORPUSCULAR HGB CONC 32 g/dL (31-37); MEAN CORPUSCULAR VOLUME 84 fL (79-100); MONO # 0.5 x10^3/uL (0.0-1.1); MONO % 8 % (0-9); NEUT # 3.6 x10^3uL (1.8-7.7); NEUT % 55 % (31-73); PLATELET COUNT 247 x10^3/uL (140-400); RED BLOOD COUNT 3.78 x10^6/uL (3.50-5.40); RED CELL DISTRIBUTION WIDTH 17.8 % (11.5-14.5); WHITE BLOOD COUNT 6.6 x10^3/uL (4.0-11.0)
[2018-01-24 15:51] VITALS: BP 151/85
[2018-01-24] MEDS: MELATONIN 3 MG TABLET PO SCH (20:27)
[2018-01-24] MEDS: diphenhydrAMINE HCL 25 MG CAPSULE PO SCH (20:28)
--- NOTE | 2018-01-24 21:10 | PDOC ---
Exam Note: Neal Note: Please also refer to the separate dictated note~for this date of service dictated separately.~Patient seen individually. Discussed the patient with Nursing staff reviewed the chart.~Reviewed interim history and current functioning. Reviewed vital signs,~Labs/ Radiology~and current medications noted below. Continue current treatment with the changes noted in the dictated addendum note Assessment: Vital Signs: Vital Signs Date Time Temp Pulse Resp B/P (MAP) Pulse Ox O2 Delivery O2 Flow Rate FiO2 01/24/18 15:51 97.6 81 18 151/85 (107) 97 01/23/18 07:48 Room Air I&O Intake and Output 01/24/18 07:00 Intake Total 1440 ml Balance 1440 ml Intake Oral 1440 ml # Voids 2 Labs: Laboratory Tests Test 01/24/18 07:13 01/24/18 09:20 01/24/18 11:17 Glucose (Fingerstick) 66 mg/dL (70-99) L 70 mg/dL (70-99) White Blood Count 6.6 x10^3/uL (4.0-11.0) Red Blood Count 3.78 x10^6/uL (3.50-5.40) Hemoglobin 10.2 g/dL (12.0-15.5) L Hematocrit 31.8 % (36.0-47.0) L Mean Corpuscular Volume 84 fL (79-100) Mean Corpuscular Hemoglobin 27 pg (25-35) Mean Corpuscular Hemoglobin Concent 32 g/dL (31-37) Red Cell Distribution Width 17.8 % (11.5-14.5) H Platelet Count 247 x10^3/uL (140-400) Neutrophils (%) (Auto) 55 % (31-73) Lymphocytes (%) (Auto) 34 % (24-48) Monocytes (%) (Auto) 8 % (0-9) Eosinophils (%) (Auto) 2 % (0-3) Basophils (%) (Auto) 1 % (0-3) Neutrophils # (Auto) 3.6 x10^3uL (1.8-7.7) Lymphocytes # (Auto) 2.3 x10^3/uL (1.0-4.8) Monocytes # (Auto) 0.5 x10^3/uL (0.0-1.1) Eosinophils # (Auto) 0.1 x10^3/uL (0.0-0.7) Basophils # (Auto) 0.0 x10^3/uL (0.0-0.2) Sodium Level 141 mmol/L (136-145) Potassium Level 4.8 mmol/L (3.5-5.1) Chloride Level 106 mmol/L (98-107) Carbon Dioxide Level 27 mmol/L (21-32) Anion Gap 8 (6-14) Blood Urea Nitrogen 29 mg/dL (7-20) H Creatinine 1.2 mg/dL (0.6-1.0) H Estimated GFR (Cockcroft-Gault) 53.4 BUN/Creatinine Ratio 24 (6-20) H Glucose Level 111 mg/dL (70-99) H Calcium Level 9.2 mg/dL (8.5-10.1) Total Bilirubin 0.2 mg/dL (0.2-1.0) Aspartate Amino Transferase (AST) 30 U/L (15-37) Alanine Aminotransferase (ALT) 51 U/L (14-59) Alkaline Phosphatase 106 U/L (46-116) Total Protein 7.8 g/dL (6.4-8.2) Albumin 3.5 g/dL (3.4-5.0) Albumin/Globulin Ratio 0.8 (1.0-1.7) L Current Medications: Meds: Current Medications Acetaminophen (Tylenol) 650 mg 1X ONCE PO Last administered on 01/14/18at 20:17 ; Start 01/14/18 at 20:15; Stop 01/14/18 at 20:16; Status DC Sodium Chloride 1,000 ml @ 1,000 mls/hr 1X ONCE IV Last administered on at 21:00; Start 01/14/18 at 20:30; Stop 01/14/18 at 21:29; Status DC Acetaminophen (Tylenol) 650 mg PRN Q6HRS PRN PO PAIN / TEMP; Start 01/15/18 at 00:00 Al Hydroxide/Mg Hydroxide (Mylanta Plus Xs) 15 ml PRN AFTMEALHC PRN PO DYSPEPSIA; Start 01/15/18 at 00:00 Magnesium Hydroxide (Milk Of Magnesia) 2,400 mg PRN QHS PRN PO CONSTIPATION Last administered on 01/19/18 20:45; Start 01/15/18 at 00:00 Alprazolam (Xanax) 0.25 mg PRN Q8HRS PRN PO ANXIETY / AGITATION Last administered on 01/18/18 10:50; Start 01/15/18 at 00:00 Alprazolam (Xanax) 0.5 mg BID PO Last administered on 01/24/18 20:31; Start at 09:00 Sertraline HCl (Zoloft) 150 mg DAILY PO Last administered on 01/16/18 07:42; Start 01/15/18 at 09:00; Stop 01/16/18 at 16:24; Status DC Non-Formulary Medication (Melatonin/ Pyridoxine (Melatonin 5 Mg Tablet)) 5 mg PRN QHS PRN PO INSOMNIA; Start 01/15/18 at 00:00; Stop 01/15/18 at 04:40; Status DC Albuterol Sulfate (Ventolin) 2.5 mg PRN Q4HRS PRN NEB Dyspnea; Start 01/15/18 at 00:15 Amlodipine Besylate (Norvasc) 10 mg DAILY PO Last administered on 01/24/18 08: 19; Start 01/15/18 at 09:00 Budesonide (Pulmicort) 0.5 mg PRN BID PRN NEB SHORTNESS OF BREATH; Start at 00:15 Diclofenac Sodium (Voltaren) 4 sam PRN QID PRN TP R Knee Pain Last administered on 01/23/18 09:51; Start 01/15/18 at 00:15 Dicyclomine HCl (Bentyl) 10 mg PRN Q8HRS PRN PO Bowel Cramps; Start 01/15/18 at 00:15 Diphenhydramine HCl (Benadryl) 25 mg QHS PO Last administered on 01/24/18 20: 28; Start 01/15/18 at 21:00 Ferrous Sulfate (Feosol) 325 mg DAILY PO Last administered on 01/24/18 08:20; Start 01/15/18 at 09:00 Gabapentin (Neurontin) 300 mg TID PO Last administered on 01/24/18 20:28; Start 01/15/18 at 09:00 Hydrocortisone (Proctosol-Hc) 1 sam PRN Q24HRS PRN RC Hemorrhoids; Start at 00:15 Hydrocortisone Acetate (Anucort-Hc) 25 mg PRN Q12HR PRN RC Hemorroids; Start at 00:15 Levetiracetam (Keppra) 500 mg BID PO Last administered on 01/24/18at 20:28; Start 01/15/18 at 09:00 Magnesium Hydroxide (Milk Of Magnesia) 2,400 mg PRN QHS PRN PO CONSTIPATION; Start 01/15/18 at 00:15; Status UNV Nitroglycerin (Nitrostat) 0.4 mg PRN Q5MIN PRN SL CHEST PAIN; Start 01/15/18 at 00:15 Nystatin (Nystop) 1 sam PRN TID PRN TP REDNESS; Start 01/15/18 at 00:15 Oxycodone/ Acetaminophen (Percocet 10/325) 1 tab BID PO Last administered on at 20:31; Start 01/15/18 at 09:00 Oxycodone/ Acetaminophen (Percocet 10/325) 1 tab PRN Q4HRS PRN PO PAIN Last administered on 01/23/18at 11:56; Start 01/15/18 at 00:15 Pioglitazone HCl (Actos) 15 mg DAILYWBKFT PO Last administered on 01/24/18at 08: 22; Start 01/15/18 at 08:00 Ascorbic Acid (Vitamin C) 500 mg DAILY PO Last administered on 01/24/18at 08:20 ; Start 01/15/18 at 09:00 Artificial Tears (Artificial Tears) 1 drop PRN TID PRN OU DRY EYE; Start at 00:15 Glimepiride (Amaryl) 1 mg DAILY PO Last administered on 01/24/18at 08:20; Start 01/15/18 at 09:00; Stop 01/24/18 at 11:16; Status DC Guaifenesin (Robitussin Dm) 10 ml PRN Q4HRS PRN PO COUGH; Start 01/15/18 at 00: 15 Loperamide HCl (Imodium) 2 mg PRN Q4HRS PRN PO DIARRHEA; Start 01/15/18 at 00:15 Ondansetron HCl (Zofran Odt) 4 mg PRN Q4HRS PRN PO NAUSEA/VOMITING; Start at 00:15 Famotidine (Pepcid) 20 mg BID PO Last administered on 01/24/18at 20:28; Start at 09:00 Melatonin 6 mg QHS PO Last administered on 01/24/18at 20:27; Start 01/15/18 at 21 :00 Duloxetine HCl (Cymbalta) 30 mg DAILY PO Last administered on 01/18/18at 08:12; Start 01/17/18 at 09:00; Stop 01/18/18 at 23:30; Status DC Duloxetine HCl (Cymbalta) 60 mg DAILY PO Last administered on 01/24/18at 08:19; Start 01/19/18 at 09:00 Celecoxib (CeleBREX) 100 mg BID PO Last administered on 01/24/18at 21:04; Start 01/17/18 at 21:00 Active Scripts Active Reported Zantac (Ranitidine Hcl) 150 Mg Tablet 150 Mg PO BID Vitamin C (Ascorbate Calcium) 500 Mg Tablet 500 Mg PO DAILY Robitussin Cough-Chest Dm Liq (Guaifenesin/Dextromethorphan) 237 Ml Liquid 10 Ml PO PRN Q4HRS PRN Percocet 10-325 Mg Tablet (Oxycodone Hcl/Acetaminophen) 1 Each Tablet 1 Tab PO PRN Q4HRS PRN Percocet 10-325 Mg Tablet (Oxycodone Hcl/Acetaminophen) 1 Each Tablet 1 Tab PO BID Ondansetron Hcl 4 Mg Tablet 4 Mg PO PRN Q4HRS PRN Nystatin 15 Gm Powder 1 Sam TP PRN TID PRN Nitrostat (Nitroglycerin) 0.4 Mg Tab.subl 0.4 Mg SL PRN Q5MIN PRN MDD 3tabs Naprosyn (Naproxen) 500 Mg Tablet 500 Mg PO PRN Q12HR PRN Melatonin 5 Mg Tablet (Melatonin/Pyridoxine) 1 Each Tablet 5 Mg PO PRN QHS PRN Loperamide (Loperamide Hcl) 2 Mg Tablet 2 Mg PO PRN Q4HRS PRN MDD 16mg Keppra (Levetiracetam) 500 Mg Tablet 500 Mg PO BID Ferrous Sulfate 325 Mg Tablet 325 Mg PO DAILY Neurontin (Gabapentin) 300 Mg Capsule 300 Mg PO TID Voltaren (Diclofenac Sodium) 100 Gm Gel..gram. 4 Gm TP PRN QID PRN Budesonide 0.5 Mg/2 Ml Ampul.neb 0.5 Mg NEB PRN BID PRN Dicyclomine Hcl 10 Mg Capsule 10 Mg PO PRN Q8HRS PRN Benadryl (Diphenhydramine Hcl) 25 Mg Capsule 25 Mg PO QHS Artificial Tears Eye Drops (Dextran 70/Hypromellose) 15 Ml Drops 1 Drop OU TID PRN Anusol-Hc (Hydrocortisone Acetate) 25 Mg Supp.rect 25 Mg RC PRN Q12HR PRN Anusol-Hc (Hydrocortisone) 30 Gm Cream..g. 1 Sam RC PRN Q24HRS PRN Norvasc (Amlodipine Besylate) 10 Mg Tablet 10 Mg PO DAILY Amaryl (Glimepiride) 1 Mg Tablet 1 Mg PO DAILY Alprazolam 0.5 Mg Tablet 0.5 Mg PO BID Tylenol (Acetaminophen) 325 Mg Tablet 650 Mg PO PRN Q4HRS PRN Albuterol Sulfate Neb Soln (Albuterol Sulfate) 2.5 Mg/3 Ml Vial.neb 2.5 Mg NEB PRN Q4HRS PRN Zoloft (Sertraline Hcl) 100 Mg Tablet 150 Mg PO DAILY Milk Of Magnesia (Magnesium Hydroxide) 400 Mg/5 Ml Oral.susp 2,400 Mg PO PRN QHS PRN Alprazolam 0.25 Mg Tablet 0.25 Mg PO PRN Q8HRS PRN Actos (Pioglitazone Hcl) 15 Mg Tablet 15 Mg PO [id number] I have reviewed the current psychotropics carefully including drug interactions. Risk benefit ratio favors no change other than as noted in my dictated progress note. Diagnosis: Problems: (1) Prerenal azotemia (2) Depression (3) Hyperglycemia (4) Suicidal ideation (5) Anxiety disorder (6) Impulse control disorder (7) Major depressive disorder, recurrent episode (8) Mild cognitive impairment BEA SAWANT MD Jan 24, 2018 21:10
--- NOTE | 2018-01-25 03:06 | PN ---
DATE: 01/22/2018 PSYCHIATRIC PROGRESS NOTE This late entry 01/22/2018 covers elements not covered in my initial note 01/22/2018. The patient remains somewhat withdrawn, but denies suicidal ideation, states her mood is better. REVIEW OF SYSTEMS: No CV, , pulmonary, eye, ENT system symptoms on review. MENTAL STATUS EXAM: Reasonably oriented. Speech: Moderate latency, often responses monosyllabic. Abstraction fair, computation impaired, language function intact. Mood and affect dysphoric, but improved. LABORATORY DATA: Reviewed. IMPRESSION: Major depressive disorder in partial remission. Rest unchanged. PLAN: Continue psychotropics mentioned in my initial note. MAN Farrah SAWANT MD DR: MARK/daphne JOB#: [id number] / [id number]
[2018-01-25] MEDS ORDERED: CELE100C PO (03:09)
[2018-01-25] MEDS ORDERED: MAG30ORA2 PO (03:24)
[2018-01-25] MEDS ORDERED: FAMO20TA5 PO (03:27)
[2018-01-25] MEDS ORDERED: DULO60CA6 PO (03:29)
--- NOTE | 2018-01-25 04:28 | PN ---
DATE: 01/23/2018 This is a late entry for 01/23, covers elements not covered in my initial note of 01/23. SUBJECTIVE: I met with the patient in the evening of 01/23. The patient has been cooperative with meds and assessment, calm, still somewhat depressed, but better. No suicidal ideation. REVIEW OF SYSTEMS: No CV, , pulmonary, eye system symptoms on review. MENTAL STATUS EXAMINATION: Oriented to herself and situation. Speech has some latency, coherent, often responses monosyllabic. Abstraction fair. Computation impaired. Language function intact. Attention span short. Mood and affect withdrawn. LABORATORY DATA: Reviewed. IMPRESSION: Major depressive disorder, history of psychotic features. PLAN: Continue psychotropics mentioned in my initial note. MAN Farrah SAWANT MD DR: MARK/daphne JOB#: [id number] / [id number]
[2018-01-25 07:09] VITALS: BP 154/77
[2018-01-25] MEDS: GABAPENTIN 300 MG CAPSULE. PO SCH ×2 (08:28→14:12)
[2018-01-25] MEDS: PIOGLITAZONE 15 MG TABLET. PO SCH (08:28)
[2018-01-25] MEDS: FAMOTIDINE 20 MG TABLET PO SCH (08:28)
[2018-01-25] MEDS: levETIRAcetam 500 MG TABLET PO SCH (08:28)
[2018-01-25 08:29] VITALS: BP 154/77
[2018-01-25] MEDS: DULoxetine HCL 60 MG CAPSULE.DR PO SCH (08:29)
[2018-01-25] MEDS: CELECOXIB 100 MG CAPSULE PO SCH (08:29)
[2018-01-25] MEDS: FERROUS SULFATE 325 MG TABLET. PO SCH (08:29)
[2018-01-25] MEDS: ASCORBIC ACID 500 MG TABLET PO SCH (08:29)
[2018-01-25] MEDS: amLODIPine BESYLATE 10 MG TABLET PO SCH (08:29)
[2018-01-25] MEDS: oxyCODONE/APAP 10/325 1 TAB TABLET PO SCH (08:31)
[2018-01-25] MEDS: ALPRAZolam 0.5 MG TABLET PO SCH (08:31)
--- NOTE | 2018-01-25 18:21 | PDOC ---
Exam Note: Neal Note: Please also refer to the separate dictated note~for this date of service dictated separately.~Patient seen individually. Discussed the patient with Nursing staff reviewed the chart.~Reviewed interim history and current functioning. Reviewed vital signs,~Labs/ Radiology~and current medications noted below. Continue current treatment with the changes noted in the dictated addendum note Assessment: Vital Signs: Vital Signs Date Time Temp Pulse Resp B/P (MAP) Pulse Ox O2 Delivery O2 Flow Rate FiO2 01/25/18 08:29 74 154/77 01/25/18 07:09 97.4 18 98 01/23/18 07:48 Room Air I&O Intake and Output 01/25/18 07:00 Intake Total 1440 ml Balance 1440 ml Intake Oral 1440 ml # Voids 2 # Bowel Movements 2 Labs: Laboratory Tests Test 01/25/18 07:16 Glucose (Fingerstick) 72 mg/dL (70-99) Current Medications: Meds: Current Medications Acetaminophen (Tylenol) 650 mg 1X ONCE PO Last administered on 01/14/18at 20:17 ; Start 01/14/18 at 20:15; Stop 01/14/18 at 20:16; Status DC Sodium Chloride 1,000 ml @ 1,000 mls/hr 1X ONCE IV Last administered on at 21:00; Start 01/14/18 at 20:30; Stop 01/14/18 at 21:29; Status DC Acetaminophen (Tylenol) 650 mg PRN Q6HRS PRN PO PAIN / TEMP; Start 01/15/18 at 00:00; Stop 01/25/18 at 15:40; Status DC Al Hydroxide/Mg Hydroxide (Mylanta Plus Xs) 15 ml PRN AFTMEALHC PRN PO DYSPEPSIA; Start 01/15/18 at 00:00; Stop 01/25/18 at 15:40; Status DC Magnesium Hydroxide (Milk Of Magnesia) 2,400 mg PRN QHS PRN PO CONSTIPATION Last administered on 01/19/18at 20:45; Start 01/15/18 at 00:00; Stop 01/25/18 at 15:40; Status DC Alprazolam (Xanax) 0.25 mg PRN Q8HRS PRN PO ANXIETY / AGITATION Last administered on 01/18/18at 10:50; Start 01/15/18 at 00:00; Stop 01/25/18 at 15:40 ; Status DC Alprazolam (Xanax) 0.5 mg BID PO Last administered on 01/25/18at 08:31; Start at 09:00; Stop 01/25/18 at 15:40; Status DC Sertraline HCl (Zoloft) 150 mg DAILY PO Last administered on 01/16/18at 07:42; Start 01/15/18 at 09:00; Stop 01/16/18 at 16:24; Status DC Non-Formulary Medication (Melatonin/ Pyridoxine (Melatonin 5 Mg Tablet)) 5 mg PRN QHS PRN PO INSOMNIA; Start 01/15/18 at 00:00; Stop 01/15/18 at 04:40; Status DC Albuterol Sulfate (Ventolin) 2.5 mg PRN Q4HRS PRN NEB Dyspnea; Start 01/15/18 at 00:15; Stop 01/25/18 at 15:40; Status DC Amlodipine Besylate (Norvasc) 10 mg DAILY PO Last administered on 01/25/18at 08: 29; Start 01/15/18 at 09:00; Stop 01/25/18 at 15:40; Status DC Budesonide (Pulmicort) 0.5 mg PRN BID PRN NEB SHORTNESS OF BREATH; Start at 00:15; Stop 01/25/18 at 15:40; Status DC Diclofenac Sodium (Voltaren) 4 sam PRN QID PRN TP R Knee Pain Last administered on 01/23/18at 09:51; Start 01/15/18 at 00:15; Stop 01/25/18 at 15:40 ; Status DC Dicyclomine HCl (Bentyl) 10 mg PRN Q8HRS PRN PO Bowel Cramps; Start 01/15/18 at 00:15; Stop 01/25/18 at 15:40; Status DC Diphenhydramine HCl (Benadryl) 25 mg QHS PO Last administered on 01/24/18at 20: 28; Start 01/15/18 at 21:00; Stop 01/25/18 at 15:40; Status DC Ferrous Sulfate (Feosol) 325 mg DAILY PO Last administered on 01/25/18at 08:29; Start 01/15/18 at 09:00; Stop 01/25/18 at 15:40; Status DC Gabapentin (Neurontin) 300 mg TID PO Last administered on 01/25/18at 14:12; Start 01/15/18 at 09:00; Stop 01/25/18 at 15:40; Status DC Hydrocortisone (Proctosol-Hc) 1 sam PRN Q24HRS PRN RC Hemorrhoids; Start at 00:15; Stop 01/25/18 at 15:40; Status DC Hydrocortisone Acetate (Anucort-Hc) 25 mg PRN Q12HR PRN RC Hemorroids; Start at 00:15; Stop 01/25/18 at 15:40; Status DC Levetiracetam (Keppra) 500 mg BID PO Last administered on 01/25/18at 08:28; Start 01/15/18 at 09:00; Stop 01/25/18 at 15:40; Status DC Magnesium Hydroxide (Milk Of Magnesia) 2,400 mg PRN QHS PRN PO CONSTIPATION; Start 01/15/18 at 00:15; Status UNV Nitroglycerin (Nitrostat) 0.4 mg PRN Q5MIN PRN SL CHEST PAIN; Start 01/15/18 at 00:15; Stop 01/25/18 at 15:40; Status DC Nystatin (Nystop) 1 sam PRN TID PRN TP REDNESS; Start 01/15/18 at 00:15; Stop at 15:40; Status DC Oxycodone/ Acetaminophen (Percocet 10/325) 1 tab BID PO Last administered on at 08:31; Start 01/15/18 at 09:00; Stop 01/25/18 at 15:40; Status DC Oxycodone/ Acetaminophen (Percocet 10/325) 1 tab PRN Q4HRS PRN PO PAIN Last administered on 01/23/18at 11:56; Start 01/15/18 at 00:15; Stop 01/25/18 at 15:40 ; Status DC Pioglitazone HCl (Actos) 15 mg DAILYWBKFT PO Last administered on 01/25/18at 08: 28; Start 01/15/18 at 08:00; Stop 01/25/18 at 15:40; Status DC Ascorbic Acid (Vitamin C) 500 mg DAILY PO Last administered on 01/25/18at 08:29 ; Start 01/15/18 at 09:00; Stop 01/25/18 at 15:40; Status DC Artificial Tears (Artificial Tears) 1 drop PRN TID PRN OU DRY EYE; Start at 00:15; Stop 01/25/18 at 15:40; Status DC Glimepiride (Amaryl) 1 mg DAILY PO Last administered on 01/24/18at 08:20; Start 01/15/18 at 09:00; Stop 01/24/18 at 11:16; Status DC Guaifenesin (Robitussin Dm) 10 ml PRN Q4HRS PRN PO COUGH; Start 01/15/18 at 00: 15; Stop 01/25/18 at 15:40; Status DC Loperamide HCl (Imodium) 2 mg PRN Q4HRS PRN PO DIARRHEA; Start 01/15/18 at 00:15 ; Stop 01/25/18 at 15:40; Status DC Ondansetron HCl (Zofran Odt) 4 mg PRN Q4HRS PRN PO NAUSEA/VOMITING; Start at 00:15; Stop 01/25/18 at 15:40; Status DC Famotidine (Pepcid) 20 mg BID PO Last administered on 01/25/18at 08:28; Start at 09:00; Stop 01/25/18 at 15:40; Status DC Melatonin 6 mg QHS PO Last administered on 01/24/18at 20:27; Start 01/15/18 at 21 :00; Stop 01/25/18 at 15:40; Status DC Duloxetine HCl (Cymbalta) 30 mg DAILY PO Last administered on 01/18/18at 08:12; Start 01/17/18 at 09:00; Stop 01/18/18 at 23:30; Status DC Duloxetine HCl (Cymbalta) 60 mg DAILY PO Last administered on 01/25/18at 08:29; Start 01/19/18 at 09:00; Stop 01/25/18 at 15:40; Status DC Celecoxib (CeleBREX) 100 mg BID PO Last administered on 01/25/18at 08:29; Start 01/17/18 at 21:00; Stop 01/25/18 at 15:40; Status DC Active Scripts Active Reported Cymbalta (Duloxetine Hcl) 60 Mg Capsule.dr 60 Mg PO DAILY Famotidine 20 Mg Tablet 20 Mg PO BID Mag-Al Plus Xs Suspension (Mag Hydrox/Al Hydrox/Simeth) 30 Ml Oral.susp 15 Ml PO PRN AFTMEALHC PRN Celebrex (Celecoxib) 100 Mg Capsule 100 Mg PO BID Vitamin C (Ascorbate Calcium) 500 Mg Tablet 500 Mg PO DAILY Robitussin Cough-Chest Dm Liq (Guaifenesin/Dextromethorphan) 237 Ml Liquid 10 Ml PO PRN Q4HRS PRN Percocet 10-325 Mg Tablet (Oxycodone Hcl/Acetaminophen) 1 Each Tablet 1 Tab PO PRN Q4HRS PRN Percocet 10-325 Mg Tablet (Oxycodone Hcl/Acetaminophen) 1 Each Tablet 1 Tab PO BID Ondansetron Hcl 4 Mg Tablet 4 Mg PO PRN Q4HRS PRN Nystatin 15 Gm Powder 1 Sam TP PRN TID PRN Nitrostat (Nitroglycerin) 0.4 Mg Tab.subl 0.4 Mg SL PRN Q5MIN PRN MDD 3tabs Melatonin 5 Mg Tablet (Melatonin/Pyridoxine) 1 Each Tablet 6 Mg PO QHS Loperamide (Loperamide Hcl) 2 Mg Tablet 2 Mg PO PRN Q4HRS PRN MDD 16mg Keppra (Levetiracetam) 500 Mg Tablet 500 Mg PO BID Ferrous Sulfate 325 Mg Tablet 325 Mg PO DAILY Neurontin (Gabapentin) 300 Mg Capsule 300 Mg PO TID Voltaren (Diclofenac Sodium) 100 Gm Gel..gram. 4 Gm TP PRN QID PRN Budesonide 0.5 Mg/2 Ml Ampul.neb 0.5 Mg NEB PRN BID PRN Dicyclomine Hcl 10 Mg Capsule 10 Mg PO PRN Q8HRS PRN Benadryl (Diphenhydramine Hcl) 25 Mg Capsule 25 Mg PO QHS Artificial Tears Eye Drops (Dextran 70/Hypromellose) 15 Ml Drops 1 Drop OU TID PRN Anusol-Hc (Hydrocortisone Acetate) 25 Mg Supp.rect 25 Mg RC PRN Q12HR PRN Anusol-Hc (Hydrocortisone) 30 Gm Cream..g. 1 Sam RC PRN Q24HRS PRN Norvasc (Amlodipine Besylate) 10 Mg Tablet 10 Mg PO DAILY Alprazolam 0.5 Mg Tablet 0.5 Mg PO BID Tylenol (Acetaminophen) 325 Mg Tablet 650 Mg PO PRN Q6HRS PRN Albuterol Sulfate Neb Soln (Albuterol Sulfate) 2.5 Mg/3 Ml Vial.neb 2.5 Mg NEB PRN Q4HRS PRN Milk Of Magnesia (Magnesium Hydroxide) 400 Mg/5 Ml Oral.susp 2,400 Mg PO PRN QHS PRN Alprazolam 0.25 Mg Tablet 0.25 Mg PO PRN Q8HRS PRN Actos (Pioglitazone Hcl) 15 Mg Tablet 15 Mg PO DAILYWBKFT I have reviewed the current psychotropics carefully including drug interactions. Risk benefit ratio favors no change other than as noted in my dictated progress note. Diagnosis: Problems: (1) Mild cognitive impairment (2) Major depressive disorder, recurrent episode (3) Impulse control disorder (4) Anxiety disorder BEA SAWANT MD Jan 25, 2018 18:21
--- NOTE | 2018-01-25 23:00 | PN ---
DATE: 01/24/2018 PSYCHIATRIC PROGRESS NOTE This is a late entry for 01/24/2018, covers elements not covered in my initial note of 01/24/2018. SUBJECTIVE: I met with the patient the evening of 01/24/2018. Blood sugar was somewhat low at 67 in the morning. She said she fell in the morning. No injury noted. Less fixated on pain. REVIEW OF SYSTEMS: No CV, , pulmonary, eye system symptoms on review. MENTAL STATUS EXAM: Reasonably oriented. Speech has some latency, coherent. Abstraction fair, computation impaired, language function intact. Mood and affect improved, less dysphoric. LABORATORY DATA: Reviewed. IMPRESSION: Major depressive disorder with suicidal ideation, latter in partial remission. PLAN: Continue psychotropics mentioned in my initial note. MAN Farrah SAWANT MD DR: MARK/daphne JOB#: [id number] / [id number]
--- NOTE | 2018-01-26 12:28 | DS ---
DATE OF DISCHARGE: 01/25/2018 DISCHARGE SUMMARY/PSYCHIATRIC PROGRESS NOTE This late entry 01/25/2017, covers elements not covered in my initial note 01/25/2018. REASON FOR ADMISSION: Please refer to the admission history for details. Briefly, the patient is a 72-year-old female referred to us from [facility] on account of worsening symptoms of depression, anxiety with suicidal ideation with a plan to overdose on medications. She has also talked about cutting herself with a knife. She had failed outpatient psychiatric interventions. Behaviors deemed dangerous to herself, referred for inpatient psychiatric stabilization. SIGNIFICANT FINDINGS AND CLINICAL COURSE: Following admission, the patient was seen daily individually by myself, followed medically per Dr. Wills/Dr Mcguire. The patient was quite depressed, withdrawn, paranoid. Adjustments were made in her psychotropics. She seemed to respond to a combination of Cymbalta 60 mg a day, Xanax 0.25 mg q.8h. p.r.n. plus 0.5 mg b.i.d. scheduled, melatonin 6 mg at bedtime and she was on Keppra 500 b.i.d. for seizure disorder. Gradually mood appeared to improve. She denied suicidal ideation prior to discharge. CONDITION AT DISCHARGE: Improved. REVIEW OF SYSTEMS: Prior to discharge 01/25/2018, No CV, , pulmonary, eye, ENT system symptoms on review. MENTAL STATUS EXAM: Reasonably oriented. Speech moderate latency, often responses monosyllabic. Abstraction fair, computation impaired, language function intact, attention span short. Mood and affect improved. No active suicidal ideation at discharge. FINAL DIAGNOSES: Major depressive disorder, recurrent, in partial remission; anxiety disorder, unspecified; impulse control disorder, unspecified. Rest unchanged from admission. DISCHARGE MEDICATIONS: Please refer to the EMRAD. DISCHARGE INSTRUCTIONS: Outpatient psychiatric and medical followup at the correction. BEA SAWANT MD DR: MARK/daphne JOB#: [id number] / [id number]
== END 2018-01-25 13:30 | disposition home or self-care (01) | DRG 885 ==
LOC: ER 18:05 → GEROPSY 23:52
PROVIDERS: ADMIT Psychiatry & Neurology Psychiatry; ATTEND Psychiatry & Neurology Psychiatry
DX: F33.3 Major depressive disorder, recurrent, severe with psychotic symptoms (principal); E11.65 Type 2 diabetes mellitus with hyperglycemia; R45.851 Suicidal ideations; F03.90 Unspecified dementia, unspecified severity, without behavioral disturbance, psychotic disturbance, mood disturbance, and anxiety; E66.01 Morbid (severe) obesity due to excess calories; E78.5 Hyperlipidemia, unspecified; F41.9 Anxiety disorder, unspecified; F63.9 Impulse disorder, unspecified; G40.909 Epilepsy, unspecified, not intractable, without status epilepticus; G47.33 Obstructive sleep apnea (adult) (pediatric); G89.29 Other chronic pain; I10 Essential (primary) hypertension; J44.9 Chronic obstructive pulmonary disease, unspecified; K21.9 Gastro-esophageal reflux disease without esophagitis; Z96.651 Presence of right artificial knee joint; M19.90 Unspecified osteoarthritis, unspecified site; Z88.6 Allergy status to analgesic agent; Z68.37 Body mass index [BMI] 37.0-37.9, adult; Z86.73 Personal history of transient ischemic attack (TIA), and cerebral infarction without residual deficits; Z79.899 Other long term (current) drug therapy
CPT/HCPCS: 36415; 73030; 73562; 80048; 80053; 80061; 81001; 82306; 82607; 82947; 83036; 83540; 83550; 83735; 84436; 84443; 84480; 84484; 84550; 85025; 85027; 85651; 86140; 86593; 93005; Q0163; J7030

== ENCOUNTER 2018-02-21 22:06 | Inpatient (IN) | payer MEDICARE, OTHER ==
[~2018-02-21] VITALS: Ht 157.5 cm; Wt 84.0 kg
[~2018-02-21 22:06] MED LIST changes: +ALBU2.5V5 NEB; +ALPR0.5T6 PO; +AMLO10TA4 PO; +ASCO-78 PO; +BUDE0.5A11 NEB; +CELE100C PO; +DEXT15DR5 OU; +DICL100G18 TP; +DICY10CA3 PO; +DIPH25CA58 PO; +DULO60CA6 PO; +FAMO20TA5 PO; +FERR325T14 PO; +GABA-586 PO; +GLIM1TAB PO; +GUAI237L83 PO; +HYDR25SU18 RC; +HYDR30CR61 RC; +LEVE500T56 PO; +LOPE2TAB27 PO; +MELA1TAB2 PO; -METF10002 PO; +METF10003 PO; -METF500T4 PO; +METF500T5 PO; +NAPR-683 PO; +NITR0.4T SL; +NYST15PO9 TP; +ONDA4TAB11 PO; +OXYC-328 PO; +RANI150T21 PO
--- NOTE | 2018-02-21 23:13 | EKG ---
[address] [address] Test Date: 2018-02-21 Test Time: 22:12:05 Pat Name: KAYLAN THOMSON Department: Room: Gender: F Solder Technician: ABIGAIL : 1945 Requested By: LARISSA NESS Order Number: [id number] Reading MD: Ruiz Bah MD Measurements Intervals [place] Rate: 82 P: 0 AL: 122 QRS: -15 QRSD: 82 T: 27 QT: 376 QTc: 442 Interpretive Statements SINUS RHYTHM Electronically Signed On 03-24-2018 14:23:02 CDT by Ruiz Bah MD
[2018-02-21 23:25] LABS: BASO % 1 % (0-3); EOS # 0.1 x10^3/uL (0.0-0.7); EOS % 1 % (0-3); HEMATOCRIT 27.7 % (36.0-47.0); HEMOGLOBIN 9.3 g/dL (12.0-15.5); LYMPH # 1.8 x10^3/uL (1.0-4.8); LYMPH % 26 % (24-48); MEAN CORPUSCULAR HEMOGLOBIN 28 pg (25-35); MEAN CORPUSCULAR HGB CONC 34 g/dL (31-37); MEAN CORPUSCULAR VOLUME 82 fL (79-100); MONO # 0.5 x10^3/uL (0.0-1.1); MONO % 8 % (0-9); NEUT # 4.5 x10^3uL (1.8-7.7); NEUT % 65 % (31-73); PLATELET COUNT 194 x10^3/uL (140-400); RED BLOOD COUNT 3.36 x10^6/uL (3.50-5.40); RED CELL DISTRIBUTION WIDTH 17.3 % (11.5-14.5)
[2018-02-21 23:27] LABS: CLARITY,URINE CLEAR; COLOR,URINE YELLOW
[2018-02-21 23:28] LABS: BACTERIA,URINE 0 /HPF (0-FEW); BILIRUBIN,URINE NEG (NEG); GLUCOSE,URINE NEG (NEG); NITRITE,URINE NEG (NEG); RBC,URINE 0 /HPF (0-2); SQUAMOUS EPITHELIAL CELL,UR OCC /LPF; UROBILINOGEN,URINE 0.2 mg/dL (0.2 mg/dL); WBC,URINE RARE /HPF (0-4)
[2018-02-21 23:31] LABS: ALBUMIN 3.4 g/dL (3.4-5.0); ALBUMIN/GLOBULIN RATIO 0.9 (1.0-1.7); CREATININE 1.2 mg/dL (0.6-1.0); GFR 53.4; POTASSIUM 5.3 mmol/L (3.5-5.1); TOTAL BILIRUBIN 0.3 mg/dL (0.2-1.0); TOTAL PROTEIN 7.3 g/dL (6.4-8.2)
--- NOTE | 2018-02-21 23:41 | RAD ---
EXAM: CHEST 1 VIEW. HISTORY: Chest pain. COMPARISON: None. FINDINGS: A frontal view of the chest is obtained. There are no confluent infiltrates. There is no pneumothorax or pleural effusion. The heart is moderately enlarged. There are atherosclerotic calcifications of the aorta. IMPRESSION: 1. Moderate cardiomegaly. Electronically signed by: Tiffanie Terry MD (02/21/2018 11:38 PM) [facility] [place]
[2018-02-22] MEDS ORDERED: ACETAMINOPHEN 500 MG TABLET PO ONE (03:30)
--- NOTE | 2018-02-22 03:53 | PHYS DOC ---
Past History Past Medical History: Anemia, Anxiety, Constipation, COPD, CVA, Dementia, Depression, Diabetes, GERD, High Cholesterol, Hypertension, Other Past Surgical History: Alcohol Use: Occasionally Drug Use: None Adult General Chief Complaint Chief Complaint: PSYCH EVALUATION HPI HPI 72-year-old female with a history of depression and dementia as well as multiple other medical problems. She lives in a group home at [facility]. Patient was referred to the emergency department tonight for evaluation and psychiatric clearance and treatment if possible. Per staff patient has exhibited some aggressive behaviors so they sent her to the emergency department. On arrival patient stated that her chest was sore, worse with movement and palpation. No nausea vomiting diaphoresis or shortness of air. Review of Systems Review of Systems Constitutional: Denies fever or chills [] Eyes: Denies change in visual acuity, redness, or eye pain [] HENT: Denies nasal congestion or sore throat [] Respiratory: Denies cough or shortness of breath [] Cardiovascular: No additional information not addressed in HPI [] GI: Denies abdominal pain, nausea, vomiting, bloody stools or diarrhea [] : Denies dysuria or hematuria [] Musculoskeletal: Denies back pain or joint pain [] Integument: Denies rash or skin lesions [] Neurologic: Denies headache, focal weakness or sensory changes [] Endocrine: Denies polyuria or polydipsia [] All other systems were reviewed and found to be within normal limits, except as documented in this note. Current Medications Current Medications Current Medications Medications (Trade) Dose Ordered Sig/Cinthia Start Time Stop Time Status Last Admin Dose Admin Acetaminophen (Tylenol) 1,000 mg 1X ONCE 02/22/18 03:30 02/22/18 03:31 DC 02/22/18 03:05 1,000 MG Allergies Allergies Allergies Coded Allergies Type Severity Reaction Last Updated Verified aspirin Allergy Intermediate 10/02/15 Yes Physical Exam Physical Exam Elderly female. Depressed mood and flat affect. Patient has easily reproducible anterior chest wall tenderness which she describes as the chest pain she complained of on arrival. No skin changes subcutaneous air bony tenderness or soft tissue swelling. Clear lungs regular rate and rhythm benign abdomen normal extremities and a nonfocal neurologic exam. Constitutional:no acute distress, non-toxic appearance. [] HENT: Normocephalic, atraumatic, bilateral external ears normal, oropharynx moist, no oral exudates, nose normal. [] Eyes: PERRLA, EOMI, conjunctiva normal, no discharge. [] Neck: Normal range of motion, no tenderness, supple, no stridor. [] Cardiovascular:Heart rate regular rhythm, no murmur [] Lungs & Thorax: Bilateral breath sounds clear to auscultation [] Abdomen: Bowel sounds normal, soft, no tenderness, no masses, no pulsatile masses. [] Skin: Warm, dry, no erythema, no rash. [] Back: No tenderness, no CVA tenderness. [] Extremities: No tenderness, no cyanosis, no clubbing, ROM intact, no edema. [] Neurologic: Alert and orientedx2 not to date, normal motor function, normal sensory function, no focal deficits noted. [] Psychologic: Depressed mood and flat affect Current Patient Data Vital Signs Vital Signs Date Time Temp Pulse Resp B/P (MAP) Pulse Ox O2 Delivery O2 Flow Rate FiO2 02/22/18 02:28 75 14 162/76 (104) 98 Room Air 02/21/18 22:06 98.3 Lab Results Laboratory Tests Test 02/21/18 22:46 02/21/18 23:02 Urine Collection Type Unknown Urine Color Yellow Urine Clarity Clear Urine pH 7.0 Urine Specific Derry 1.010 Urine Protein Trace (NEG-TRACE) Urine Glucose (UA) Neg mg/dL (NEG) Urine Ketones (Stick) Neg mg/dL (NEG) Urine Blood Neg (NEG) Urine Nitrite Neg (NEG) Urine Bilirubin Neg (NEG) Urine Urobilinogen Dipstick 0.2 mg/dL (0.2 mg/dL) Urine Leukocyte Esterase Neg (NEG) Urine RBC 0 /HPF (0-2) Urine WBC Rare /HPF (0-4) Urine Squamous Epithelial Cells Occ /LPF Urine Bacteria 0 /HPF (0-FEW) White Blood Count 7.0 x10^3/uL (4.0-11.0) Red Blood Count 3.36 x10^6/uL (3.50-5.40) L Hemoglobin 9.3 g/dL (12.0-15.5) L Hematocrit 27.7 % (36.0-47.0) L Mean Corpuscular Volume 82 fL (79-100) Mean Corpuscular Hemoglobin 28 pg (25-35) Mean Corpuscular Hemoglobin Concent 34 g/dL (31-37) Red Cell Distribution Width 17.3 % (11.5-14.5) H Platelet Count 194 x10^3/uL (140-400) Neutrophils (%) (Auto) 65 % (31-73) Lymphocytes (%) (Auto) 26 % (24-48) Monocytes (%) (Auto) 8 % (0-9) Eosinophils (%) (Auto) 1 % (0-3) Basophils (%) (Auto) 1 % (0-3) Neutrophils # (Auto) 4.5 x10^3uL (1.8-7.7) Lymphocytes # (Auto) 1.8 x10^3/uL (1.0-4.8) Monocytes # (Auto) 0.5 x10^3/uL (0.0-1.1) Eosinophils # (Auto) 0.1 x10^3/uL (0.0-0.7) Basophils # (Auto) 0.0 x10^3/uL (0.0-0.2) Sodium Level 139 mmol/L (136-145) Potassium Level 5.3 mmol/L (3.5-5.1) H Chloride Level 102 mmol/L (98-107) Carbon Dioxide Level 27 mmol/L (21-32) Anion Gap 10 (6-14) Blood Urea Nitrogen 25 mg/dL (7-20) H Creatinine 1.2 mg/dL (0.6-1.0) H Estimated GFR (Cockcroft-Gault) 53.4 BUN/Creatinine Ratio 21 (6-20) H Glucose Level 255 mg/dL (70-99) H Calcium Level 9.0 mg/dL (8.5-10.1) Total Bilirubin 0.3 mg/dL (0.2-1.0) Aspartate Amino Transferase (AST) 24 U/L (15-37) Alanine Aminotransferase (ALT) 47 U/L (14-59) Alkaline Phosphatase 105 U/L (46-116) Troponin I Quantitative < 0.017 ng/mL (0-0.055) Total Protein 7.3 g/dL (6.4-8.2) Albumin 3.4 g/dL (3.4-5.0) Albumin/Globulin Ratio 0.9 (1.0-1.7) L EKG EKG []EKG with normal sinus rhythm at 82 left axis deviation no STEMI interpreted by me Radiology/Procedures Radiology/Procedures Chest x-ray with chronic changes no acute disease interpreted by me[] Course & Med Decision Making Course & Med Decision Making Pertinent Labs and Imaging studies reviewed. (See chart for details) Patient with chronic depression sent for evaluation of behavioral issues. Her chest pain is clearly reproducible and she confirms that that is exactly the pain she was referring to. No evidence of acute coronary syndrome. Workup benign. No further medical evaluation or treatment is indicated and patient is medically cleared for psychiatric evaluation. [] Dragon Disclaimer Dragon Disclaimer This electronic medical record was generated, in whole or in part, using a voice recognition dictation system. Departure Departure: Impression: Primary Impression: Depression Additional Impressions: Dementia Behavioral disorder Disposition: ADMITTED INPATIENT Admitting Physician: Other Condition: STABLE Referrals: LARISSA POWERS MD (PCP) Problem Qualifiers LARISSA NESS MD February 22, 2018 03:52
[2018-02-22] MEDS ORDERED: RISP0.2519 (04:41)
[2018-02-22] MEDS ORDERED: INSU100I17 SQ (04:41)
[2018-02-22] MEDS ORDERED: NITROGLYCERIN SUBLINGUAL 0.4 MG BOTTLE OF 25. SL PRN (05:00)
[2018-02-22] MEDS ORDERED: MAG HYDROX/AL HYDROX/SIMETH 30 ML ORAL.SUSP PO PRN (05:00)
[2018-02-22] MEDS ORDERED: HYDROCORTISONE 2.5% RECTAL CREAM 30GM TUBE. RC PRN (05:00)
[2018-02-22] MEDS ORDERED: ALBUTEROL SULFATE 2.5 MG/3 ML NEBU. NEB PRN (05:00)
[2018-02-22] MEDS ORDERED: DICLOFENAC SODIUM 1% TOPICAL GEL 100GM TUBE. TP PRN (05:00)
[2018-02-22] MEDS ORDERED: NYSTATIN TOPICAL POWDER 15GM BOTTLE. TP PRN (05:00)
[2018-02-22] MEDS ORDERED: METHYL SALICYLATE/MENTHOL TOPICAL OINTMENT 29GM TUBE. TP PRN (05:00)
[2018-02-22] MEDS ORDERED: DICYCLOMINE HCL 10 MG CAPSULE PO PRN (05:00)
[2018-02-22] MEDS ORDERED: POLYVINYL ALCOHOL 1.4% OPHTH SOLUTION 15ML BOTTLE. OU PRN (05:30)
[2018-02-22] MEDS ORDERED: guaiFENesin DM 200MG/20MG 10 ML SYRUP PO PRN (05:30)
[2018-02-22] MEDS ORDERED: LOPERAMIDE 2 MG CAPSULE PO PRN (05:30)
[2018-02-22] MEDS ORDERED: ONDANSETRON ODT 4 MG TAB.RAPDIS PO PRN (05:30)
[2018-02-22] MEDS ORDERED: HYDROCORTISONE ACETATE 25 MG SUPP.RECT PR PRN (05:30)
[2018-02-22] MEDS: oxyCODONE/APAP 10/325 1 TAB TABLET PO PRN ×2 (05:34→10:09)
[2018-02-22 06:23] VITALS: BP 163/84
[2018-02-22] MEDS ORDERED: INSULIN ASPART 300 UNITS/3 ML INSULN.PEN SQ SCH (08:00)
[2018-02-22] MEDS: INSULIN LISPRO 300 UNITS/3 ML INSULN.PEN. SQ SCH ×4 (08:39→20:17)
[2018-02-22] MEDS: PIOGLITAZONE 15 MG TABLET. PO SCH (08:40)
[2018-02-22] MEDS: FERROUS SULFATE 325 MG TABLET. PO SCH (08:41)
[2018-02-22] MEDS: oxyCODONE/APAP 10/325 1 TAB TABLET PO SCH ×2 (08:41→20:12)
[2018-02-22] MEDS: DULoxetine HCL 60 MG CAPSULE.DR PO SCH (08:41)
[2018-02-22] MEDS: ASCORBIC ACID 500 MG TABLET PO SCH (08:41)
[2018-02-22] MEDS: risperiDONE 0.25 MG TABLET. PO SCH ×2 (08:42→20:11)
[2018-02-22] MEDS: CELECOXIB 100 MG CAPSULE PO SCH ×2 (08:42→20:11)
[2018-02-22] MEDS: amLODIPine BESYLATE 10 MG TABLET PO SCH (08:42)
[2018-02-22] MEDS: levETIRAcetam 500 MG TABLET PO SCH ×2 (08:42→20:11)
[2018-02-22] MEDS: GABAPENTIN 300 MG CAPSULE. PO SCH ×2 (08:42→20:11)
[2018-02-22] MEDS: FAMOTIDINE 20 MG TABLET PO SCH (08:44)
[2018-02-22] MEDS: BUDESONIDE 0.5 MG/2 ML NEBU NEB SCH ×2 (09:43→21:05)
[2018-02-22 14:08] LABS: THYROID STIM HORMONE (TSH) 1.983 uIU/mL (0.358-3.740)
[2018-02-22 16:35] VITALS: BP 160/72
--- NOTE | 2018-02-22 19:26 | HP ---
ADMIT DATE: 02/22/2018 This note covers the elements not covered in my initial note, 02/22/2018. IDENTIFYING DATA: The patient is a 72-year-old female referred back to us from [facility] by her primary care physician on account of increased symptoms of depression and making statements that she had considered harming herself. She is increasingly agitated, delusional, having visual hallucinations. She has failed outpatient psychiatric interventions and a prior inpatient stay with us here. CHIEF COMPLAINT: "Things are getting more difficult. Yes, I had thought about hurting myself. I would not do that." HISTORY OF PRESENT ILLNESS: The patient has a history of increasing symptoms of depression, feeling hopeless, helpless, worthless, more irritable, anxious, and labile in her mood. She has had sleep and appetite changes, suicidal ideation as noted above. No clear history of bipolar disorder. PAST PSYCHIATRIC HISTORY: As above and she was last here with us in December of this year. PAST MEDICAL HISTORY: Positive for anemia, cervicalgia, chronic constipation, GERD, cervical disk degeneration, diabetes mellitus, osteoarthritis, COPD, hypertension, status post CVA, hemiplegia, hyperlipidemia, obstructive sleep apnea, Accu-Cheks before meals and at bedtime. DIET: Regular. ALLERGIES: ASPIRIN. CURRENT PSYCHOTROPICS: Melatonin 6 mg at bedtime, Xanax 0.5 mg at bedtime, Keppra 500 b.i.d., Neurontin 300 mg b.i.d., Risperdal 0.25 mg b.i.d., Cymbalta 60 mg a day. Ambulates Ad-Mary. FAMILY HISTORY: Noncontributory. SOCIAL HISTORY: No alcohol, drug abuse, physical, sexual or elder abuse history is noted. Not known to be a perpetrator. Reaction to hospitalization, the patient accepting of this. ASSETS: Stable, living at the [facility], support from the staff and family. REVIEW OF SYSTEMS: No CV, , pulmonary, eye system symptoms on review. Gait unsteady at times. MENTAL STATUS EXAMINATION: The patient is reasonably oriented to place, situation, and date. She is anxious, depressed. Speech coherent, abstraction fair, computation impaired, language function intact. Short-term memory is impaired. No active suicidal or homicidal ideation. LABORATORY DATA: Reviewed. IMPRESSION: Major depressive disorder with psychotic features; anxiety disorder, unspecified; cognitive disorder, unspecified. Rest as above. PLAN: Admit to Geropsychiatry Unit at [facility]. I will see the patient daily individually from a psychiatric standpoint, medical followup with Dr. Mcguire/Dr. Kolb, continue current psychotropics. Add Remeron 7.5 mg by mouth at bedtime to help with insomnia and to augment the Cymbalta, further adjustments depending on her progress initially. MAN Farrah SAWANT MD DR: MARK/daphne JOB#: [id number] / [id number]
[2018-02-22 20:10] LABS: T3 TOTAL 93 ng/dL (71-180); THYROXINE 7.3 ug/dL (4.5-12.0)
[2018-02-22] MEDS: ALPRAZolam 0.5 MG TABLET PO SCH (20:14)
[2018-02-22] MEDS: MELATONIN 3 MG TABLET PO SCH (20:14)
[2018-02-22] MEDS: MIRTAZAPINE 7.5 MG TABLET. PO SCH (20:19)
--- NOTE | 2018-02-22 20:22 | PDOC ---
Exam Note: Neal Note: Please also refer to the separate dictated note~for this date of service dictated separately.~Patient seen individually. Discussed the patient with Nursing staff reviewed the chart.~Reviewed interim history and current functioning. Reviewed vital signs,~Labs/ Radiology~and current medications noted below. Continue current treatment with the changes noted in the dictated addendum note Assessment: Vital Signs: Vital Signs Date Time Temp Pulse Resp B/P (MAP) Pulse Ox O2 Delivery O2 Flow Rate FiO2 02/22/18 16:35 97.2 98 20 160/72 (101) 94 02/22/18 09:43 Room Air Labs: Laboratory Tests Test 02/21/18 22:28 02/21/18 22:46 02/21/18 23:02 02/22/18 08:10 POC Troponin I 0.00 ng/ml (<0.08) Urine Collection Type Unknown Urine Color Yellow Urine Clarity Clear Urine pH 7.0 Urine Specific Victor 1.010 Urine Protein Trace (NEG-TRACE) Urine Glucose (UA) Neg mg/dL (NEG) Urine Ketones (Stick) Neg mg/dL (NEG) Urine Blood Neg (NEG) Urine Nitrite Neg (NEG) Urine Bilirubin Neg (NEG) Urine Urobilinogen Dipstick 0.2 mg/dL (0.2 mg/dL) Urine Leukocyte Esterase Neg (NEG) Urine RBC 0 /HPF (0-2) Urine WBC Rare /HPF (0-4) Urine Squamous Epithelial Cells Occ /LPF Urine Bacteria 0 /HPF (0-FEW) White Blood Count 7.0 x10^3/uL (4.0-11.0) Red Blood Count 3.36 x10^6/uL (3.50-5.40) L Hemoglobin 9.3 g/dL (12.0-15.5) L Hematocrit 27.7 % (36.0-47.0) L Mean Corpuscular Volume 82 fL (79-100) Mean Corpuscular Hemoglobin 28 pg (25-35) Mean Corpuscular Hemoglobin Concent 34 g/dL (31-37) Red Cell Distribution Width 17.3 % (11.5-14.5) H Platelet Count 194 x10^3/uL (140-400) Neutrophils (%) (Auto) 65 % (31-73) Lymphocytes (%) (Auto) 26 % (24-48) Monocytes (%) (Auto) 8 % (0-9) Eosinophils (%) (Auto) 1 % (0-3) Basophils (%) (Auto) 1 % (0-3) Neutrophils # (Auto) 4.5 x10^3uL (1.8-7.7) Lymphocytes # (Auto) 1.8 x10^3/uL (1.0-4.8) Monocytes # (Auto) 0.5 x10^3/uL (0.0-1.1) Eosinophils # (Auto) 0.1 x10^3/uL (0.0-0.7) Basophils # (Auto) 0.0 x10^3/uL (0.0-0.2) Sodium Level 139 mmol/L (136-145) Potassium Level 5.3 mmol/L (3.5-5.1) H Chloride Level 102 mmol/L (98-107) Carbon Dioxide Level 27 mmol/L (21-32) Anion Gap 10 (6-14) Blood Urea Nitrogen 25 mg/dL (7-20) H Creatinine 1.2 mg/dL (0.6-1.0) H Estimated GFR (Cockcroft-Gault) 53.4 BUN/Creatinine Ratio 21 (6-20) H Glucose Level 255 mg/dL (70-99) H Calcium Level 9.0 mg/dL (8.5-10.1) Magnesium Level 2.0 mg/dL (1.8-2.4) Iron Level 27 ug/dL (50-170) L Total Iron Binding Capacity 246 ug/dL (250-450) L Iron Saturation 11 % (15-34) L Total Bilirubin 0.3 mg/dL (0.2-1.0) Aspartate Amino Transferase (AST) 24 U/L (15-37) Alanine Aminotransferase (ALT) 47 U/L (14-59) Alkaline Phosphatase 105 U/L (46-116) Troponin I Quantitative < 0.017 ng/mL (0-0.055) Total Protein 7.3 g/dL (6.4-8.2) Albumin 3.4 g/dL (3.4-5.0) Albumin/Globulin Ratio 0.9 (1.0-1.7) L Triglycerides Level 103 mg/dL (0-150) Cholesterol Level 139 mg/dL (0-200) LDL Cholesterol, Calculated 71 mg/dL (0-100) VLDL Cholesterol, Calculated 20 mg/dL (0-40) Non-HDL Cholesterol Calculated 91 mg/dL (0-129) HDL Cholesterol 48 mg/dL (40-60) Cholesterol/HDL Ratio 2.0 Vitamin B12 Level 967 pg/mL (247-911) H 25-Hydroxy Vitamin D Total 17.5 ng/mL (30-100) L Thyroid Stimulating Hormone (TSH) 1.983 uIU/mL (0.358-3.740) Thyroxine (T4) 7.3 ug/dL (4.5-12.0) Total Triiodothyronine (TT3) 93 ng/dL (71-180) Rapid Plasma Reagin Pending Glucose (Fingerstick) 212 mg/dL (70-99) H Test 02/22/18 11:30 02/22/18 16:32 02/22/18 19:33 Glucose (Fingerstick) 178 mg/dL (70-99) H 222 mg/dL (70-99) H 238 mg/dL (70-99) H Current Medications: Meds: Current Medications Acetaminophen (Tylenol) 1,000 mg 1X ONCE PO Last administered on 02/22/18 03: 05; Start 02/22/18 at 03:30; Stop 02/22/18 at 03:31; Status DC Alprazolam (Xanax) 0.5 mg QHS PO Last administered on 02/22/18at 20:14; Start at 21:00 Duloxetine HCl (Cymbalta) 60 mg DAILY PO Last administered on 02/22/18at 08:41; Start 02/22/18 at 09:00 Melatonin 6 mg QHS PO Last administered on 02/22/18at 20:14; Start 02/22/18 at 21:00 Risperidone (RisperDAL) 0.25 mg BID PO Last administered on 02/22/18at 20:11; Start 02/22/18 at 09:00 Acetaminophen (Tylenol) 650 mg PRN Q6HRS PRN PO PAIN / TEMP; Start 02/22/18 at 05:00 Albuterol Sulfate (Ventolin) 2.5 mg PRN Q4HRS PRN NEB Dyspnea; Start 02/22/18 at 05:00 Diclofenac Sodium (Voltaren) 4 sam PRN QID PRN TP R Knee Pain; Start 02/22/18 at 05:00 Dicyclomine HCl (Bentyl) 10 mg PRN Q8HRS PRN PO Bowel Cramps; Start 02/22/18 at 05:00 Ferrous Sulfate (Feosol) 325 mg DAILY PO Last administered on 02/22/18at 08:41; Start 02/22/18 at 09:00 Gabapentin (Neurontin) 300 mg BID PO Last administered on 02/22/18at 20:11; Start 02/22/18 at 09:00 Hydrocortisone (Proctosol-Hc) 1 sam PRN Q24HRS PRN RC Hemorrhoids; Start at 05:00 Insulin Aspart (NovoLOG) BS 200-2,50= 2 un... TIDWMEALHC SQ ; Start 02/22/18 at 08:00; Stop 02/22/18 at 08:01; Status DC Al Hydroxide/Mg Hydroxide (Mylanta Plus Xs) 15 ml PRN AFTMEALHC PRN PO DYSPEPSIA; Start 02/22/18 at 05:00 Magnesium Hydroxide (Milk Of Magnesia) 2,400 mg PRN QHS PRN PO CONSTIPATION; Start 02/22/18 at 05:00 Nitroglycerin (Nitrostat) 0.4 mg PRN Q5MIN PRN SL CHEST PAIN; Start 02/22/18 at 05:00 Nystatin (Nystop) 1 sam PRN TID PRN TP REDNESS; Start 02/22/18 at 05:00 Oxycodone/ Acetaminophen (Percocet 10/325) 1 tab BID PO Last administered on at 20:12; Start 02/22/18 at 09:00 Oxycodone/ Acetaminophen (Percocet 10/325) 1 tab PRN Q4HRS PRN PO PAIN Last administered on 02/22/18at 10:09; Start 02/22/18 at 05:00 Amlodipine Besylate (Norvasc) 10 mg DAILY PO Last administered on 02/22/18at 08: 42; Start 02/22/18 at 09:00 Ascorbic Acid (Vitamin C) 500 mg DAILY PO Last administered on 02/22/18at 08:41 ; Start 02/22/18 at 09:00 Budesonide (Pulmicort) 0.5 mg RTBID NEB Last administered on 02/22/18at 09:43; Start 02/22/18 at 08:00 Celecoxib (CeleBREX) 100 mg BID PO Last administered on 02/22/18at 20:11; Start 02/22/18 at 09:00 Artificial Tears (Artificial Tears) 1 drop TID PRN PRN OU DRY EYE; Start at 05:30 Famotidine (Pepcid) 20 mg DAILY PO Last administered on 02/22/18at 08:44; Start 02/22/18 at 09:00 Guaifenesin (Robitussin Dm) 10 ml PRN Q4HRS PRN PO COUGH; Start 02/22/18 at 05: 30 Hydrocortisone Acetate (Anucort-Hc) 25 mg PRN Q12HR PRN [place] RECTAL PAIN; Start 02/22/18 at 05:30 Levetiracetam (Keppra) 500 mg BID PO Last administered on 02/22/18at 20:11; Start 02/22/18 at 09:00 Loperamide HCl (Imodium) 2 mg PRN Q4HRS PRN PO DIARRHEA; Start 02/22/18 at 05: 30 Ondansetron HCl (Zofran Odt) 4 mg PRN Q4HRS PRN PO NAUSEA/VOMITING; Start 02/22 at 05:30 Pioglitazone HCl (Actos) 15 mg DAILY PO Last administered on 02/22/18at 08:40; Start 02/22/18 at 09:00 Multi-Ingredient Ointment (Analgesic [place]) 1 sam PRN QID PRN TP MUSCLE PAIN; Start 02/22/18 at 05:00 Insulin Human Lispro (HumaLOG) TIDWMEALHC SQ Last administered on 02/22/18 20 :17; Start 02/22/18 at 08:00 Mirtazapine (Remeron) 7.5 mg QHS PO Last administered on 02/22/18at 20:19; Start 02/22/18 at 21:00 Active Scripts Active Reported Novolog Flexpen (Insulin Aspart) 100 Unit/1 Ml Insuln.pen 2-10 Units SQ TIDWMEALHC Risperdal (Risperidone) 0.25 Mg Tablet 0.25 Mg BID Cymbalta (Duloxetine Hcl) 60 Mg Capsule.dr 60 Mg PO DAILY Famotidine 20 Mg Tablet 20 Mg PO BID Mag-Al Plus Xs Suspension (Mag Hydrox/Al Hydrox/Simeth) 30 Ml Oral.susp 15 Ml PO PRN AFTMEALHC PRN Celebrex (Celecoxib) 100 Mg Capsule 100 Mg PO BID Vitamin C (Ascorbate Calcium) 500 Mg Tablet 500 Mg PO DAILY Robitussin Cough-Chest Dm Liq (Guaifenesin/Dextromethorphan) 237 Ml Liquid 10 Ml PO PRN Q4HRS PRN Percocet 10-325 Mg Tablet (Oxycodone Hcl/Acetaminophen) 1 Each Tablet 1 Tab PO PRN Q4HRS PRN Percocet 10-325 Mg Tablet (Oxycodone Hcl/Acetaminophen) 1 Each Tablet 1 Tab PO BID Ondansetron Hcl 4 Mg Tablet 4 Mg PO PRN Q4HRS PRN Nystatin 15 Gm Powder 1 Sam TP PRN TID PRN Nitrostat (Nitroglycerin) 0.4 Mg Tab.subl 0.4 Mg SL PRN Q5MIN PRN MDD 3tabs Melatonin 5 Mg Tablet (Melatonin/Pyridoxine) 1 Each Tablet 6 Mg PO QHS Loperamide (Loperamide Hcl) 2 Mg Tablet 2 Mg PO PRN Q4HRS PRN MDD 16mg Keppra (Levetiracetam) 500 Mg Tablet 500 Mg PO BID Ferrous Sulfate 325 Mg Tablet 325 Mg PO DAILY Neurontin (Gabapentin) 300 Mg Capsule 300 Mg PO TID Voltaren (Diclofenac Sodium) 100 Gm Gel..gram. 4 Gm TP PRN QID PRN Budesonide 0.5 Mg/2 Ml Ampul.neb 0.5 Mg NEB PRN BID PRN Dicyclomine Hcl 10 Mg Capsule 10 Mg PO PRN Q8HRS PRN Artificial Tears Eye Drops (Dextran 70/Hypromellose) 15 Ml Drops 1 Drop OU TID PRN Anusol-Hc (Hydrocortisone Acetate) 25 Mg Supp.rect 25 Mg RC PRN Q12HR PRN Anusol-Hc (Hydrocortisone) 30 Gm Cream..g. 1 Sam RC PRN Q24HRS PRN Norvasc (Amlodipine Besylate) 10 Mg Tablet 10 Mg PO DAILY Alprazolam 0.5 Mg Tablet 0.5 Mg PO HS Tylenol (Acetaminophen) 325 Mg Tablet 650 Mg PO PRN Q6HRS PRN Albuterol Sulfate Neb Soln (Albuterol Sulfate) 2.5 Mg/3 Ml Vial.neb 2.5 Mg NEB PRN Q4HRS PRN Milk Of Magnesia (Magnesium Hydroxide) 400 Mg/5 Ml Oral.susp 2,400 Mg PO PRN QHS PRN Actos (Pioglitazone Hcl) 15 Mg Tablet 15 Mg PO DAILYWBKFT I have reviewed the current psychotropics carefully including drug interactions. Risk benefit ratio favors no change other than as noted in my dictated progress note. Diagnosis: Problems: (1) Anxiety disorder (2) Impulse control disorder (3) Major depressive disorder, recurrent episode (4) Mild cognitive impairment BEA SAWANT MD February 22, 2018 20:22
--- NOTE | 2018-02-22 22:28 | CONS ---
DATE OF CONSULTATION: 02/22/2018 REASON FOR CONSULTATION: Medical management. HISTORY OF PRESENT ILLNESS: The patient a 72-year-old -[place] female patient, a resident at [facility], who was admitted with increasing depression, thoughts of harming herself, increased agitation, delusion, visual hallucination, all this apparently in a background of major depressive disorder. Again, on questioning her this time, she stated that her son does not keep in touch with her, only her daughter. Her parents have apparently recently. She became actually tearful when I asked this question. PAST MEDICAL HISTORY: Significant for type 2 diabetes, hyperlipidemia, obstructive sleep apnea, hypertension, CVA, chronic obstructive pulmonary disease, gastroesophageal reflux disease and morbid obesity. PAST SURGICAL HISTORY: Significant for right total knee arthroplasty. ALLERGIES: SHE IS ALLERGIC TO ASPIRIN. MEDICATIONS: She is currently on following medications: She is on dicyclomine 10 mg every 8 hours, albuterol sulfate 2.5 mg by nebulizer every 4 hours, ferrous sulfate 325 mg once a day, nitroglycerin 0.4 mg sublingually every 5 minutes x 3, amlodipine besylate 10 mg once a day, Celebrex 100 mg twice a day, diclofenac sodium for Voltaren gel 4 grams topically 4 times a day, acetaminophen for Percocet 10/325 one tablet twice a day. She is also on oxycodone/acetaminophen for Percocet 10/325 every 4 hours as needed, Tylenol 650 mg every 6 hours, gabapentin 300 mg 3 times a day, levetiracetam 500 mg twice a day, duloxetine 60 mg, Cymbalta 60 mg once a day, risperidone 0.25 mg twice a day, alprazolam 0.5 mg at bedtime, guaifenesin/dextromethorphan 10 mL every 4 hours. She is on Pulmicort 0.5 mg 2 mL by nebulizer twice a day. She is on artificial tears 1 drop 3 times a day, Mylanta 15 mL 4 times a day, loperamide 2 mg every 4 hours as needed for diarrhea, magnesium hydroxide for milk of magnesia 30 mL p.o. daily p.r.n. for constipation, ondansetron 4 mg every 4 hours for nausea and vomiting, famotidine 20 mg twice a day. She is on NovoLog insulin 2-10 units subcutaneously 3 times a day with meals, pioglitazone for Actos 15 mg daily, Nystatin powder topically 2 times a day, hydrocortisone cream apply for Anusol rectally once a day, hydrocortisone acetate twice a day, ascorbate calcium, vitamin C 500 mg once a day, melatonin/pyridoxine 6 mg at bedtime. FAMILY HISTORY: Unremarkable. SOCIAL HISTORY: She is . Presently, a resident at [facility]. She does not smoke, drink alcohol or use any recreational drugs. REVIEW OF SYSTEMS: As per history of present illness. PHYSICAL EXAMINATION GENERAL: When I examined her, she looked well and was clearly in no apparent respiratory distress, slightly pale, but no jaundice, cyanosis, or thyromegaly. No jugular venous distension. No lower limb edema. VITAL SIGNS: Her heart rate was 98, blood pressure 160/72, temperature was 97.2, respiratory rate 20 and oxygen saturation was 94%. HEAD, EYES, EARS, NOSE AND THROAT: Showed normocephalic, atraumatic. NECK: Supple. HEART: Showed normal first and second sounds. No gallop, rub or murmur. CHEST: Clear to auscultation. No crepitation or rhonchi. ABDOMEN: Distended, soft, nontender. No guarding or rigidity. No organomegaly. All hernial orifice intact. Bowel sounds normal. NEUROLOGIC: She was awake, alert, responding appropriately. All cranial nerves intact. EXTREMITIES: She moves extremities without difficulty. She ambulates with a walker. LABORATORY DATA: Her lab work this morning showed a white cell count 7000, hemoglobin 9, hematocrit 27, MCV 82 and platelet count of 194,000. Her chemistry showed a serum sodium of 139, potassium 5.3, chloride 102, bicarbonate 27, anion gap of 10, BUN 25, creatinine 1.2. Estimated GFR was 53 mL per minute. Her glucose was 255, calcium 9, magnesium 2. Total bilirubin, AST, ALT, alkaline phosphatase were normal. Total protein 7.3, albumin 3.4. Her triglycerides are 103. Total cholesterol 139, LDL was 71, VLDL was 20. HDL cholesterol was 48 and ratio was 2. TSH was 1.98. Urinalysis was essentially unremarkable. LABORATORY DATA: Her chest x-ray showed that there are no confluent infiltrates. There is no pneumothorax or pleural effusion. The heart is moderately enlarged, atherosclerotic calcification of the aorta. IMPRESSION AND PLAN: So all in all, this is a 72-year-old female patient, who yet again was admitted with increased depression, thoughts of harming herself, increased agitation, delusion, visual hallucination in the background of major depressive disorder. She has a multitude of medical problems including chronic obstructive pulmonary disease, hypertension, obstructive sleep apnea, diabetes mellitus, osteoarthritis, hemiplegia and hemiparesis. She is generally medically stable. I will continue with all her medications. I will follow all her lab work and make any necessary adjustment. Thank you, Dr. Gregory for allowing me to participate in the care of this patient. CALEB ALLEN MD DR: EMMA/daphne JOB#: [id number] / [id number]
[2018-02-23 00:13] LABS: HEMOGLOBIN A1C 6.3 % (4.8-5.6)
[2018-02-23 06:05] VITALS: BP 170/82
[2018-02-23] MEDS: INSULIN LISPRO 300 UNITS/3 ML INSULN.PEN. SQ SCH ×4 (08:00→20:48)
[2018-02-23] MEDS: PIOGLITAZONE 15 MG TABLET. PO SCH (08:51)
[2018-02-23] MEDS: DULoxetine HCL 60 MG CAPSULE.DR PO SCH (08:51)
[2018-02-23] MEDS: risperiDONE 0.25 MG TABLET. PO SCH ×2 (08:51→20:45)
[2018-02-23] MEDS: FERROUS SULFATE 325 MG TABLET. PO SCH (08:51)
[2018-02-23] MEDS: GABAPENTIN 300 MG CAPSULE. PO SCH ×2 (08:51→20:39)
[2018-02-23] MEDS: levETIRAcetam 500 MG TABLET PO SCH ×2 (08:51→20:39)
[2018-02-23] MEDS: amLODIPine BESYLATE 10 MG TABLET PO SCH (08:51)
[2018-02-23] MEDS: ASCORBIC ACID 500 MG TABLET PO SCH (08:51)
[2018-02-23] MEDS: CELECOXIB 100 MG CAPSULE PO SCH ×2 (08:51→20:38)
[2018-02-23] MEDS: FAMOTIDINE 20 MG TABLET PO SCH (08:51)
[2018-02-23] MEDS: oxyCODONE/APAP 10/325 1 TAB TABLET PO SCH ×2 (08:52→20:46)
[2018-02-23] MEDS: BUDESONIDE 0.5 MG/2 ML NEBU NEB SCH ×2 (09:22→20:00)
[2018-02-23 18:24] VITALS: BP 141/62
[2018-02-23 20:37] VITALS: BP 179/74
[2018-02-23] MEDS: MIRTAZAPINE 7.5 MG TABLET. PO SCH (20:39)
[2018-02-23] MEDS: MELATONIN 3 MG TABLET PO SCH (20:39)
[2018-02-23] MEDS: ALPRAZolam 0.5 MG TABLET PO SCH (20:46)
--- NOTE | 2018-02-23 22:18 | PDOC ---
Exam Note: Neal Note: Please also refer to the separate dictated note~for this date of service dictated separately.~Patient seen individually. Discussed the patient with Nursing staff reviewed the chart.~Reviewed interim history and current functioning. Reviewed vital signs,~Labs/ Radiology~and current medications noted below. Continue current treatment with the changes noted in the dictated addendum note Assessment: Vital Signs: Vital Signs Date Time Temp Pulse Resp B/P (MAP) Pulse Ox O2 Delivery O2 Flow Rate FiO2 02/23/18 20:37 98.2 92 22 179/74 (109) 96 02/23/18 09:23 Room Air I&O Intake and Output 02/23/18 07:00 Intake Total 960 ml Balance 960 ml Intake Oral 960 ml # Bowel Movements 1 Labs: Laboratory Tests Test 02/23/18 07:31 02/23/18 11:42 02/23/18 17:01 02/23/18 19:00 Glucose (Fingerstick) 129 mg/dL (70-99) H 176 mg/dL (70-99) H 109 mg/dL (70-99) H 204 mg/dL (70-99) H Current Medications: Meds: Current Medications Acetaminophen (Tylenol) 1,000 mg 1X ONCE PO Last administered on 02/22/18at 03: 05; Start 02/22/18 at 03:30; Stop 02/22/18 at 03:31; Status DC Alprazolam (Xanax) 0.5 mg QHS PO Last administered on 02/23/18at 20:46; Start at 21:00 Duloxetine HCl (Cymbalta) 60 mg DAILY PO Last administered on 02/23/18at 08:51; Start 02/22/18 at 09:00 Melatonin 6 mg QHS PO Last administered on 02/23/18at 20:39; Start 02/22/18 at 21:00 Risperidone (RisperDAL) 0.25 mg BID PO Last administered on 02/23/18at 08:51; Start 02/22/18 at 09:00; Stop 02/23/18 at 13:23; Status DC Acetaminophen (Tylenol) 650 mg PRN Q6HRS PRN PO PAIN / TEMP; Start 02/22/18 at 05:00 Albuterol Sulfate (Ventolin) 2.5 mg PRN Q4HRS PRN NEB Dyspnea; Start 02/22/18 at 05:00 Diclofenac Sodium (Voltaren) 4 sam PRN QID PRN TP R Knee Pain; Start 02/22/18 at 05:00 Dicyclomine HCl (Bentyl) 10 mg PRN Q8HRS PRN PO Bowel Cramps; Start 02/22/18 at 05:00 Ferrous Sulfate (Feosol) 325 mg DAILY PO Last administered on 02/23/18at 08:51; Start 02/22/18 at 09:00 Gabapentin (Neurontin) 300 mg BID PO Last administered on 02/23/18at 20:39; Start 02/22/18 at 09:00 Hydrocortisone (Proctosol-Hc) 1 sam PRN Q24HRS PRN RC Hemorrhoids; Start at 05:00 Insulin Aspart (NovoLOG) BS 200-2,50= 2 un... TIDWMEALHC SQ ; Start 02/22/18 at 08:00; Stop 02/22/18 at 08:01; Status DC Al Hydroxide/Mg Hydroxide (Mylanta Plus Xs) 15 ml PRN AFTMEALHC PRN PO DYSPEPSIA; Start 02/22/18 at 05:00 Magnesium Hydroxide (Milk Of Magnesia) 2,400 mg PRN QHS PRN PO CONSTIPATION; Start 02/22/18 at 05:00 Nitroglycerin (Nitrostat) 0.4 mg PRN Q5MIN PRN SL CHEST PAIN; Start 02/22/18 at 05:00 Nystatin (Nystop) 1 sam PRN TID PRN TP REDNESS; Start 02/22/18 at 05:00 Oxycodone/ Acetaminophen (Percocet 10/325) 1 tab BID PO Last administered on at 20:46; Start 02/22/18 at 09:00 Oxycodone/ Acetaminophen (Percocet 10/325) 1 tab PRN Q4HRS PRN PO PAIN Last administered on 02/22/18at 10:09; Start 02/22/18 at 05:00 Amlodipine Besylate (Norvasc) 10 mg DAILY PO Last administered on 02/23/18at 08: 51; Start 02/22/18 at 09:00 Ascorbic Acid (Vitamin C) 500 mg DAILY PO Last administered on 02/23/18 08:51 ; Start 02/22/18 at 09:00 Budesonide (Pulmicort) 0.5 mg RTBID NEB Last administered on 02/23/18 09:22; Start 02/22/18 at 08:00 Celecoxib (CeleBREX) 100 mg BID PO Last administered on 02/23/18 20:38; Start 02/22/18 at 09:00 Artificial Tears (Artificial Tears) 1 drop TID PRN PRN OU DRY EYE; Start at 05:30 Famotidine (Pepcid) 20 mg DAILY PO Last administered on 02/23/18 08:51; Start 02/22/18 at 09:00 Guaifenesin (Robitussin Dm) 10 ml PRN Q4HRS PRN PO COUGH; Start 02/22/18 at 05: 30 Hydrocortisone Acetate (Anucort-Hc) 25 mg PRN Q12HR PRN [place] RECTAL PAIN; Start 02/22/18 at 05:30 Levetiracetam (Keppra) 500 mg BID PO Last administered on 02/23/18 20:39; Start 02/22/18 at 09:00 Loperamide HCl (Imodium) 2 mg PRN Q4HRS PRN PO DIARRHEA; Start 02/22/18 at 05: 30 Ondansetron HCl (Zofran Odt) 4 mg PRN Q4HRS PRN PO NAUSEA/VOMITING; Start 02/22 at 05:30 Pioglitazone HCl (Actos) 15 mg DAILY PO Last administered on 02/23/18 08:51; Start 02/22/18 at 09:00 Multi-Ingredient Ointment (Analgesic [place]) 1 sam PRN QID PRN TP MUSCLE PAIN; Start 02/22/18 at 05:00 Insulin Human Lispro (HumaLOG) TIDWMEALHC SQ Last administered on 02/23/18 20 :48; Start 02/22/18 at 08:00 Mirtazapine (Remeron) 7.5 mg QHS PO Last administered on 02/23/18 20:39; Start 02/22/18 at 21:00 Risperidone (RisperDAL) 0.375 mg BID PO Last administered on 02/23/18 20:45; Start 02/23/18 at 21:00 Olanzapine (ZyPREXA ZYDIS) 5 mg PRN Q2HR PRN PO PSYCHOSIS; Start 02/23/18 at 19 :45 Active Scripts Active Reported Novolog Flexpen (Insulin Aspart) 100 Unit/1 Ml Insuln.pen 2-10 Units SQ TIDWMEALHC Risperdal (Risperidone) 0.25 Mg Tablet 0.25 Mg BID Cymbalta (Duloxetine Hcl) 60 Mg Capsule.dr 60 Mg PO DAILY Famotidine 20 Mg Tablet 20 Mg PO BID Mag-Al Plus Xs Suspension (Mag Hydrox/Al Hydrox/Simeth) 30 Ml Oral.susp 15 Ml PO PRN AFTMEALHC PRN Celebrex (Celecoxib) 100 Mg Capsule 100 Mg PO BID Vitamin C (Ascorbate Calcium) 500 Mg Tablet 500 Mg PO DAILY Robitussin Cough-Chest Dm Liq (Guaifenesin/Dextromethorphan) 237 Ml Liquid 10 Ml PO PRN Q4HRS PRN Percocet 10-325 Mg Tablet (Oxycodone Hcl/Acetaminophen) 1 Each Tablet 1 Tab PO PRN Q4HRS PRN Percocet 10-325 Mg Tablet (Oxycodone Hcl/Acetaminophen) 1 Each Tablet 1 Tab PO BID Ondansetron Hcl 4 Mg Tablet 4 Mg PO PRN Q4HRS PRN Nystatin 15 Gm Powder 1 Sam TP PRN TID PRN Nitrostat (Nitroglycerin) 0.4 Mg Tab.subl 0.4 Mg SL PRN Q5MIN PRN MDD 3tabs Melatonin 5 Mg Tablet (Melatonin/Pyridoxine) 1 Each Tablet 6 Mg PO QHS Loperamide (Loperamide Hcl) 2 Mg Tablet 2 Mg PO PRN Q4HRS PRN MDD 16mg Keppra (Levetiracetam) 500 Mg Tablet 500 Mg PO BID Ferrous Sulfate 325 Mg Tablet 325 Mg PO DAILY Neurontin (Gabapentin) 300 Mg Capsule 300 Mg PO TID Voltaren (Diclofenac Sodium) 100 Gm Gel..gram. 4 Gm TP PRN QID PRN Budesonide 0.5 Mg/2 Ml Ampul.neb 0.5 Mg NEB PRN BID PRN Dicyclomine Hcl 10 Mg Capsule 10 Mg PO PRN Q8HRS PRN Artificial Tears Eye Drops (Dextran 70/Hypromellose) 15 Ml Drops 1 Drop OU TID PRN Anusol-Hc (Hydrocortisone Acetate) 25 Mg Supp.rect 25 Mg RC PRN Q12HR PRN Anusol-Hc (Hydrocortisone) 30 Gm Cream..g. 1 Sam RC PRN Q24HRS PRN Norvasc (Amlodipine Besylate) 10 Mg Tablet 10 Mg PO DAILY Alprazolam 0.5 Mg Tablet 0.5 Mg PO HS Tylenol (Acetaminophen) 325 Mg Tablet 650 Mg PO PRN Q6HRS PRN Albuterol Sulfate Neb Soln (Albuterol Sulfate) 2.5 Mg/3 Ml Vial.neb 2.5 Mg NEB PRN Q4HRS PRN Milk Of Magnesia (Magnesium Hydroxide) 400 Mg/5 Ml Oral.susp 2,400 Mg PO PRN QHS PRN Actos (Pioglitazone Hcl) 15 Mg Tablet 15 Mg PO DAILYWBKFT I have reviewed the current psychotropics carefully including drug interactions. Risk benefit ratio favors no change other than as noted in my dictated progress note. Diagnosis: Problems: (1) Anxiety disorder (2) Impulse control disorder (3) Major depressive disorder, recurrent episode (4) Mild cognitive impairment BEA SAWANT MD February 23, 2018 22:18
[2018-02-24 06:08] VITALS: BP 155/72
[2018-02-24] MEDS: INSULIN LISPRO 300 UNITS/3 ML INSULN.PEN. SQ SCH ×4 (07:57→20:12)
[2018-02-24] MEDS: CELECOXIB 100 MG CAPSULE PO SCH ×2 (09:31→20:10)
[2018-02-24] MEDS: GABAPENTIN 300 MG CAPSULE. PO SCH ×2 (09:31→20:09)
[2018-02-24] MEDS: ASCORBIC ACID 500 MG TABLET PO SCH (09:31)
[2018-02-24] MEDS: FERROUS SULFATE 325 MG TABLET. PO SCH (09:31)
[2018-02-24] MEDS: levETIRAcetam 500 MG TABLET PO SCH ×2 (09:31→20:11)
[2018-02-24] MEDS: PIOGLITAZONE 15 MG TABLET. PO SCH (09:31)
[2018-02-24] MEDS: amLODIPine BESYLATE 10 MG TABLET PO SCH (09:31)
[2018-02-24] MEDS: FAMOTIDINE 20 MG TABLET PO SCH (09:31)
[2018-02-24] MEDS: DULoxetine HCL 60 MG CAPSULE.DR PO SCH (09:31)
[2018-02-24] MEDS: risperiDONE 0.25 MG TABLET. PO SCH ×2 (09:32→20:10)
[2018-02-24] MEDS: oxyCODONE/APAP 10/325 1 TAB TABLET PO SCH ×2 (09:36→20:13)
[2018-02-24] MEDS: BUDESONIDE 0.5 MG/2 ML NEBU NEB SCH ×2 (11:30→21:11)
[2018-02-24 16:50] VITALS: BP 148/74
[2018-02-24] MEDS: MIRTAZAPINE 7.5 MG TABLET. PO SCH (20:09)
[2018-02-24] MEDS: MELATONIN 3 MG TABLET PO SCH (20:11)
[2018-02-24] MEDS: ALPRAZolam 0.5 MG TABLET PO SCH (20:13)
--- NOTE | 2018-02-24 20:20 | PDOC ---
Exam Note: Neal Note: Please also refer to the separate dictated note~for this date of service dictated separately.~Patient seen individually. Discussed the patient with Nursing staff reviewed the chart.~Reviewed interim history and current functioning. Reviewed vital signs,~Labs/ Radiology~and current medications noted below. Continue current treatment with the changes noted in the dictated addendum note Assessment: Vital Signs: Vital Signs Date Time Temp Pulse Resp B/P (MAP) Pulse Ox O2 Delivery O2 Flow Rate FiO2 02/24/18 16:50 98.2 82 20 148/74 (98) 100 Room Air I&O Intake and Output 02/24/18 07:00 Intake Total 600 ml Balance 600 ml Intake Oral 600 ml Labs: Laboratory Tests Test 02/24/18 07:26 02/24/18 11:38 02/24/18 17:01 02/24/18 19:09 Glucose (Fingerstick) 117 mg/dL (70-99) H 180 mg/dL (70-99) H 289 mg/dL (70-99) H 304 mg/dL (70-99) H Current Medications: Meds: Current Medications Acetaminophen (Tylenol) 1,000 mg 1X ONCE PO Last administered on 02/22/18at 03: 05; Start 02/22/18 at 03:30; Stop 02/22/18 at 03:31; Status DC Alprazolam (Xanax) 0.5 mg QHS PO Last administered on 02/24/18at 20:13; Start at 21:00 Duloxetine HCl (Cymbalta) 60 mg DAILY PO Last administered on 02/24/18at 09:31; Start 02/22/18 at 09:00 Melatonin 6 mg QHS PO Last administered on 02/24/18at 20:11; Start 02/22/18 at 21:00 Risperidone (RisperDAL) 0.25 mg BID PO Last administered on 02/23/18at 08:51; Start 02/22/18 at 09:00; Stop 02/23/18 at 13:23; Status DC Acetaminophen (Tylenol) 650 mg PRN Q6HRS PRN PO PAIN / TEMP; Start 02/22/18 at 05:00 Albuterol Sulfate (Ventolin) 2.5 mg PRN Q4HRS PRN NEB Dyspnea; Start 02/22/18 at 05:00 Diclofenac Sodium (Voltaren) 4 sam PRN QID PRN TP R Knee Pain; Start 02/22/18 at 05:00 Dicyclomine HCl (Bentyl) 10 mg PRN Q8HRS PRN PO Bowel Cramps; Start 02/22/18 at 05:00 Ferrous Sulfate (Feosol) 325 mg DAILY PO Last administered on 02/24/18at 09:31; Start 02/22/18 at 09:00 Gabapentin (Neurontin) 300 mg BID PO Last administered on 02/24/18at 20:09; Start 02/22/18 at 09:00 Hydrocortisone (Proctosol-Hc) 1 sam PRN Q24HRS PRN RC Hemorrhoids; Start at 05:00 Insulin Aspart (NovoLOG) BS 200-2,50= 2 un... TIDWMEALHC SQ ; Start 02/22/18 at 08:00; Stop 02/22/18 at 08:01; Status DC Al Hydroxide/Mg Hydroxide (Mylanta Plus Xs) 15 ml PRN AFTMEALHC PRN PO DYSPEPSIA; Start 02/22/18 at 05:00 Magnesium Hydroxide (Milk Of Magnesia) 2,400 mg PRN QHS PRN PO CONSTIPATION; Start 02/22/18 at 05:00 Nitroglycerin (Nitrostat) 0.4 mg PRN Q5MIN PRN SL CHEST PAIN; Start 02/22/18 at 05:00 Nystatin (Nystop) 1 sam PRN TID PRN TP REDNESS; Start 02/22/18 at 05:00 Oxycodone/ Acetaminophen (Percocet 10/325) 1 tab BID PO Last administered on at 20:13; Start 02/22/18 at 09:00 Oxycodone/ Acetaminophen (Percocet 10/325) 1 tab PRN Q4HRS PRN PO PAIN Last administered on 02/22/18at 10:09; Start 02/22/18 at 05:00 Amlodipine Besylate (Norvasc) 10 mg DAILY PO Last administered on 02/24/18at 09: 31; Start 02/22/18 at 09:00 Ascorbic Acid (Vitamin C) 500 mg DAILY PO Last administered on 02/24/18at 09:31 ; Start 02/22/18 at 09:00 Budesonide (Pulmicort) 0.5 mg RTBID NEB Last administered on 02/24/18at 11:30; Start 02/22/18 at 08:00 Celecoxib (CeleBREX) 100 mg BID PO Last administered on 02/24/18at 20:10; Start 02/22/18 at 09:00 Artificial Tears (Artificial Tears) 1 drop TID PRN PRN OU DRY EYE; Start at 05:30 Famotidine (Pepcid) 20 mg DAILY PO Last administered on 02/24/18at 09:31; Start 02/22/18 at 09:00 Guaifenesin (Robitussin Dm) 10 ml PRN Q4HRS PRN PO COUGH; Start 02/22/18 at 05: 30 Hydrocortisone Acetate (Anucort-Hc) 25 mg PRN Q12HR PRN OK RECTAL PAIN; Start 02/22/18 at 05:30 Levetiracetam (Keppra) 500 mg BID PO Last administered on 02/24/18at 20:11; Start 02/22/18 at 09:00 Loperamide HCl (Imodium) 2 mg PRN Q4HRS PRN PO DIARRHEA; Start 02/22/18 at 05: 30 Ondansetron HCl (Zofran Odt) 4 mg PRN Q4HRS PRN PO NAUSEA/VOMITING; Start 02/22 at 05:30 Pioglitazone HCl (Actos) 15 mg DAILY PO Last administered on 02/24/18at 09:31; Start 02/22/18 at 09:00 Multi-Ingredient Ointment (Analgesic [place]) 1 sam PRN QID PRN TP MUSCLE PAIN; Start 02/22/18 at 05:00 Insulin Human Lispro (HumaLOG) TIDWMEALHC SQ Last administered on 02/24/18at 20 :12; Start 02/22/18 at 08:00 Mirtazapine (Remeron) 7.5 mg QHS PO Last administered on 02/24/18at 20:09; Start 02/22/18 at 21:00 Risperidone (RisperDAL) 0.375 mg BID PO Last administered on 02/24/18at 20:10; Start 02/23/18 at 21:00 Olanzapine (ZyPREXA ZYDIS) 5 mg PRN Q2HR PRN PO PSYCHOSIS; Start 02/23/18 at 19 :45 Active Scripts Active Reported Novolog Flexpen (Insulin Aspart) 100 Unit/1 Ml Insuln.pen 2-10 Units SQ TIDWMEALHC Risperdal (Risperidone) 0.25 Mg Tablet 0.25 Mg BID Cymbalta (Duloxetine Hcl) 60 Mg Capsule.dr 60 Mg PO DAILY Famotidine 20 Mg Tablet 20 Mg PO BID Mag-Al Plus Xs Suspension (Mag Hydrox/Al Hydrox/Simeth) 30 Ml Oral.susp 15 Ml PO PRN AFTMEALHC PRN Celebrex (Celecoxib) 100 Mg Capsule 100 Mg PO BID Vitamin C (Ascorbate Calcium) 500 Mg Tablet 500 Mg PO DAILY Robitussin Cough-Chest Dm Liq (Guaifenesin/Dextromethorphan) 237 Ml Liquid 10 Ml PO PRN Q4HRS PRN Percocet 10-325 Mg Tablet (Oxycodone Hcl/Acetaminophen) 1 Each Tablet 1 Tab PO PRN Q4HRS PRN Percocet 10-325 Mg Tablet (Oxycodone Hcl/Acetaminophen) 1 Each Tablet 1 Tab PO BID Ondansetron Hcl 4 Mg Tablet 4 Mg PO PRN Q4HRS PRN Nystatin 15 Gm Powder 1 Sam TP PRN TID PRN Nitrostat (Nitroglycerin) 0.4 Mg Tab.subl 0.4 Mg SL PRN Q5MIN PRN MDD 3tabs Melatonin 5 Mg Tablet (Melatonin/Pyridoxine) 1 Each Tablet 6 Mg PO QHS Loperamide (Loperamide Hcl) 2 Mg Tablet 2 Mg PO PRN Q4HRS PRN MDD 16mg Keppra (Levetiracetam) 500 Mg Tablet 500 Mg PO BID Ferrous Sulfate 325 Mg Tablet 325 Mg PO DAILY Neurontin (Gabapentin) 300 Mg Capsule 300 Mg PO TID Voltaren (Diclofenac Sodium) 100 Gm Gel..gram. 4 Gm TP PRN QID PRN Budesonide 0.5 Mg/2 Ml Ampul.neb 0.5 Mg NEB PRN BID PRN Dicyclomine Hcl 10 Mg Capsule 10 Mg PO PRN Q8HRS PRN Artificial Tears Eye Drops (Dextran 70/Hypromellose) 15 Ml Drops 1 Drop OU TID PRN Anusol-Hc (Hydrocortisone Acetate) 25 Mg Supp.rect 25 Mg RC PRN Q12HR PRN Anusol-Hc (Hydrocortisone) 30 Gm Cream..g. 1 Sam RC PRN Q24HRS PRN Norvasc (Amlodipine Besylate) 10 Mg Tablet 10 Mg PO DAILY Alprazolam 0.5 Mg Tablet 0.5 Mg PO HS Tylenol (Acetaminophen) 325 Mg Tablet 650 Mg PO PRN Q6HRS PRN Albuterol Sulfate Neb Soln (Albuterol Sulfate) 2.5 Mg/3 Ml Vial.neb 2.5 Mg NEB PRN Q4HRS PRN Milk Of Magnesia (Magnesium Hydroxide) 400 Mg/5 Ml Oral.susp 2,400 Mg PO PRN QHS PRN Actos (Pioglitazone Hcl) 15 Mg Tablet 15 Mg PO [id number] I have reviewed the current psychotropics carefully including drug interactions. Risk benefit ratio favors no change other than as noted in my dictated progress note. Diagnosis: Problems: (1) Anxiety disorder (2) Impulse control disorder (3) Major depressive disorder, recurrent episode (4) Mild cognitive impairment BEA SAWANT MD February 24, 2018 20:20
[2018-02-24 21:22] LABS: BILIRUBIN,URINE NEG (NEG); CLARITY,URINE CLEAR; COLOR,URINE YELLOW; GLUCOSE,URINE 100 mg/dL (NEG); NITRITE,URINE NEG (NEG); UROBILINOGEN,URINE 1 mg/dL (0.2 mg/dL)
[2018-02-24 21:23] LABS: BACTERIA,URINE 0 /HPF (0-FEW); HYALINE CASTS, URINE FEW /HPF; SQUAMOUS EPITHELIAL CELL,UR MOD /LPF
[2018-02-25 05:40] VITALS: BP 148/59
[2018-02-25] MEDS: INSULIN LISPRO 300 UNITS/3 ML INSULN.PEN. SQ SCH ×4 (08:00→22:17)
[2018-02-25] MEDS: FAMOTIDINE 20 MG TABLET PO SCH (09:59)
[2018-02-25] MEDS: amLODIPine BESYLATE 10 MG TABLET PO SCH (09:59)
[2018-02-25] MEDS: PIOGLITAZONE 15 MG TABLET. PO SCH (09:59)
[2018-02-25] MEDS: ASCORBIC ACID 500 MG TABLET PO SCH (09:59)
[2018-02-25] MEDS: GABAPENTIN 300 MG CAPSULE. PO SCH ×2 (09:59→19:55)
[2018-02-25] MEDS: FERROUS SULFATE 325 MG TABLET. PO SCH (09:59)
[2018-02-25] MEDS: levETIRAcetam 500 MG TABLET PO SCH ×2 (09:59→19:56)
[2018-02-25] MEDS: CELECOXIB 100 MG CAPSULE PO SCH ×2 (09:59→19:56)
[2018-02-25] MEDS: risperiDONE 0.25 MG TABLET. PO SCH ×2 (10:00→19:56)
[2018-02-25] MEDS: DULoxetine HCL 60 MG CAPSULE.DR PO SCH (10:00)
[2018-02-25] MEDS: oxyCODONE/APAP 10/325 1 TAB TABLET PO SCH ×2 (10:03→19:56)
[2018-02-25] MEDS: BUDESONIDE 0.5 MG/2 ML NEBU NEB SCH ×2 (10:12→19:59)
[2018-02-25 16:23] VITALS: BP 161/69
[2018-02-25] MEDS: MELATONIN 3 MG TABLET PO SCH (19:55)
[2018-02-25] MEDS: MIRTAZAPINE 7.5 MG TABLET. PO SCH (19:55)
[2018-02-25] MEDS: ALPRAZolam 0.5 MG TABLET PO SCH (19:56)
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
[2018-02-26 06:12] VITALS: BP 125/49
[2018-02-26] MEDS: INSULIN LISPRO 300 UNITS/3 ML INSULN.PEN. SQ SCH ×4 (08:00→21:00)
[2018-02-26] MEDS: BUDESONIDE 0.5 MG/2 ML NEBU NEB SCH ×2 (11:01→21:33)
[2018-02-26] MEDS: DULoxetine HCL 60 MG CAPSULE.DR PO SCH (11:48)
[2018-02-26] MEDS: FAMOTIDINE 20 MG TABLET PO SCH (11:49)
[2018-02-26] MEDS: CELECOXIB 100 MG CAPSULE PO SCH ×2 (11:49→21:03)
[2018-02-26] MEDS: GABAPENTIN 300 MG CAPSULE. PO SCH ×2 (11:49→21:03)
[2018-02-26] MEDS: amLODIPine BESYLATE 10 MG TABLET PO SCH (11:49)
[2018-02-26] MEDS: levETIRAcetam 500 MG TABLET PO SCH ×2 (11:49→21:05)
[2018-02-26] MEDS: PIOGLITAZONE 15 MG TABLET. PO SCH (11:49)
[2018-02-26] MEDS: ASCORBIC ACID 500 MG TABLET PO SCH (11:49)
[2018-02-26] MEDS: risperiDONE 0.25 MG TABLET. PO SCH ×2 (11:50→21:03)
[2018-02-26] MEDS: FERROUS SULFATE 325 MG TABLET. PO SCH (11:55)
[2018-02-26] MEDS: DIVALPROEX 125 MG CAP.SPRINK PO SCH ×3 (11:55→17:00)
[2018-02-26] MEDS: oxyCODONE/APAP 10/325 1 TAB TABLET PO SCH ×2 (11:55→21:05)
[2018-02-26 16:38] VITALS: BP 161/60
[2018-02-26] MEDS: MIRTAZAPINE 7.5 MG TABLET. PO SCH (21:03)
[2018-02-26] MEDS: MELATONIN 3 MG TABLET PO SCH (21:03)
[2018-02-26] MEDS: ALPRAZolam 0.5 MG TABLET PO SCH (21:05)
[2018-02-26] MEDS: MAGNESIUM HYDROXIDE 2,400 MG/30 ML ORAL.SUSP. PO PRN (21:15)
--- NOTE | 2018-02-26 22:48 | PDOC ---
Exam Note: Neal Note: Late entry for date of service February 25, 2018. Please also refer to the separate dictated note~for this date of service dictated separately.~Patient seen individually. Discussed the patient with Nursing staff reviewed the chart.~ Reviewed interim history and current functioning. Reviewed vital signs,~Labs/ Radiology~and current medications noted below. Continue current treatment with the changes noted in the dictated addendum note Assessment: Vital Signs: VS - Last 72 Hours, by Label Date Time Temp Pulse Resp B/P (MAP) Pulse Ox O2 Delivery O2 Flow Rate FiO2 02/26/18 21:35 98 Room Air 02/26/18 16:38 97.9 97 20 161/60 (93) 95 02/26/18 11:49 79 125/49 02/26/18 11:01 100 Room Air 02/26/18 06:12 98.9 79 20 125/49 (74) 93 02/25/18 20:00 98 Room Air 02/25/18 16:23 97.6 85 18 161/69 (99) 98 02/25/18 10:12 97 Room Air 02/25/18 09:59 74 148/59 02/25/18 05:40 97.5 74 18 148/59 (88) 96 02/24/18 20:55 98 Room Air 02/24/18 16:50 98.2 82 20 148/74 (98) 100 Room Air 02/24/18 11:30 96 Room Air 02/24/18 09:31 74 155/72 02/24/18 06:08 97.6 74 20 155/72 (99) 93 Vital Signs Date Time Temp Pulse Resp B/P (MAP) Pulse Ox O2 Delivery O2 Flow Rate FiO2 02/26/18 21:35 98 Room Air 02/26/18 16:38 97.9 97 20 161/60 (93) I&O Intake and Output 02/26/18 07:00 Intake Total 240 ml Balance 240 ml Intake Oral 240 ml Labs: Laboratory Tests Test 02/26/18 08:09 02/26/18 12:15 02/26/18 17:16 02/26/18 19:43 Glucose (Fingerstick) 89 mg/dL (70-99) 122 mg/dL (70-99) H 349 mg/dL (70-99) H 91 mg/dL (70-99) Current Medications: Meds: Current Medications Acetaminophen (Tylenol) 1,000 mg 1X ONCE PO Last administered on 02/22/18at 03: 05; Start 02/22/18 at 03:30; Stop 02/22/18 at 03:31; Status DC Alprazolam (Xanax) 0.5 mg QHS PO Last administered on 02/26/18at 21:05; Start at 21:00 Duloxetine HCl (Cymbalta) 60 mg DAILY PO Last administered on 02/26/18at 11:48; Start 02/22/18 at 09:00 Melatonin 6 mg QHS PO Last administered on 02/26/18at 21:03; Start 02/22/18 at 21:00 Risperidone (RisperDAL) 0.25 mg BID PO Last administered on 02/23/18at 08:51; Start 02/22/18 at 09:00; Stop 02/23/18 at 13:23; Status DC Acetaminophen (Tylenol) 650 mg PRN Q6HRS PRN PO PAIN / TEMP; Start 02/22/18 at 05:00 Albuterol Sulfate (Ventolin) 2.5 mg PRN Q4HRS PRN NEB Dyspnea; Start 02/22/18 at 05:00 Diclofenac Sodium (Voltaren) 4 sam PRN QID PRN TP R Knee Pain; Start 02/22/18 at 05:00 Dicyclomine HCl (Bentyl) 10 mg PRN Q8HRS PRN PO Bowel Cramps; Start 02/22/18 at 05:00 Ferrous Sulfate (Feosol) 325 mg DAILY PO Last administered on 02/26/18at 11:55; Start 02/22/18 at 09:00 Gabapentin (Neurontin) 300 mg BID PO Last administered on 02/26/18at 21:03; Start 02/22/18 at 09:00 Hydrocortisone (Proctosol-Hc) 1 sam PRN Q24HRS PRN RC Hemorrhoids; Start at 05:00 Insulin Aspart (NovoLOG) BS 200-2,50= 2 un... TIDWMEALHC SQ ; Start 02/22/18 at 08:00; Stop 02/22/18 at 08:01; Status DC Al Hydroxide/Mg Hydroxide (Mylanta Plus Xs) 15 ml PRN AFTMEALHC PRN PO DYSPEPSIA; Start 02/22/18 at 05:00 Magnesium Hydroxide (Milk Of Magnesia) 2,400 mg PRN QHS PRN PO CONSTIPATION Last administered on 02/26/18 21:15; Start 02/22/18 at 05:00 Nitroglycerin (Nitrostat) 0.4 mg PRN Q5MIN PRN SL CHEST PAIN; Start 02/22/18 at 05:00 Nystatin (Nystop) 1 sam PRN TID PRN TP REDNESS; Start 02/22/18 at 05:00 Oxycodone/ Acetaminophen (Percocet 10/325) 1 tab BID PO Last administered on 21:05; Start 02/22/18 at 09:00 Oxycodone/ Acetaminophen (Percocet 10/325) 1 tab PRN Q4HRS PRN PO PAIN Last administered on 02/22/18at 10:09; Start 02/22/18 at 05:00 Amlodipine Besylate (Norvasc) 10 mg DAILY PO Last administered on 02/26/18 11: 49; Start 02/22/18 at 09:00 Ascorbic Acid (Vitamin C) 500 mg DAILY PO Last administered on 02/26/18 11:49 ; Start 02/22/18 at 09:00 Budesonide (Pulmicort) 0.5 mg RTBID NEB Last administered on 02/26/18at 21:33; Start 02/22/18 at 08:00 Celecoxib (CeleBREX) 100 mg BID PO Last administered on 02/26/18at 21:03; Start 02/22/18 at 09:00 Artificial Tears (Artificial Tears) 1 drop TID PRN PRN OU DRY EYE; Start at 05:30 Famotidine (Pepcid) 20 mg DAILY PO Last administered on 02/26/18 11:49; Start 02/22/18 at 09:00 Guaifenesin (Robitussin Dm) 10 ml PRN Q4HRS PRN PO COUGH; Start 02/22/18 at 05: 30 Hydrocortisone Acetate (Anucort-Hc) 25 mg PRN Q12HR PRN AL RECTAL PAIN; Start 02/22/18 at 05:30 Levetiracetam (Keppra) 500 mg BID PO Last administered on 02/26/18at 21:05; Start 02/22/18 at 09:00 Loperamide HCl (Imodium) 2 mg PRN Q4HRS PRN PO DIARRHEA; Start 02/22/18 at 05: 30 Ondansetron HCl (Zofran Odt) 4 mg PRN Q4HRS PRN PO NAUSEA/VOMITING; Start 02/22 at 05:30 Pioglitazone HCl (Actos) 15 mg DAILY PO Last administered on 02/26/18at 11:49; Start 02/22/18 at 09:00 Multi-Ingredient Ointment (Analgesic [place]) 1 sam PRN QID PRN TP MUSCLE PAIN; Start 02/22/18 at 05:00 Insulin Human Lispro (HumaLOG) TIDWMEALHC SQ Last administered on 02/26/18at 17 :00; Start 02/22/18 at 08:00 Mirtazapine (Remeron) 7.5 mg QHS PO Last administered on 02/26/18at 21:03; Start 02/22/18 at 21:00 Risperidone (RisperDAL) 0.375 mg BID PO Last administered on 02/26/18at 11:50; Start 02/23/18 at 21:00; Stop 02/26/18 at 19:49; Status DC Olanzapine (ZyPREXA ZYDIS) 5 mg PRN Q2HR PRN PO PSYCHOSIS; Start 02/23/18 at 19 :45 Divalproex Sodium (Depakote Sprinkles) 125 mg TID@0900,1300,1700 PO Last administered on 02/26/18at 17:00; Start 02/26/18 at 09:00 Risperidone (RisperDAL) 0.5 mg BID PO Last administered on 02/26/18at 21:03; Start 02/26/18 at 21:00 Active Scripts Active Reported Novolog Flexpen (Insulin Aspart) 100 Unit/1 Ml Insuln.pen 2-10 Units SQ TIDWMEALHC Risperdal (Risperidone) 0.25 Mg Tablet 0.25 Mg BID Cymbalta (Duloxetine Hcl) 60 Mg Capsule.dr 60 Mg PO DAILY Famotidine 20 Mg Tablet 20 Mg PO BID Mag-Al Plus Xs Suspension (Mag Hydrox/Al Hydrox/Simeth) 30 Ml Oral.susp 15 Ml PO PRN AFTMEALHC PRN Celebrex (Celecoxib) 100 Mg Capsule 100 Mg PO BID Vitamin C (Ascorbate Calcium) 500 Mg Tablet 500 Mg PO DAILY Robitussin Cough-Chest Dm Liq (Guaifenesin/Dextromethorphan) 237 Ml Liquid 10 Ml PO PRN Q4HRS PRN Percocet 10-325 Mg Tablet (Oxycodone Hcl/Acetaminophen) 1 Each Tablet 1 Tab PO PRN Q4HRS PRN Percocet 10-325 Mg Tablet (Oxycodone Hcl/Acetaminophen) 1 Each Tablet 1 Tab PO BID Ondansetron Hcl 4 Mg Tablet 4 Mg PO PRN Q4HRS PRN Nystatin 15 Gm Powder 1 Sam TP PRN TID PRN Nitrostat (Nitroglycerin) 0.4 Mg Tab.subl 0.4 Mg SL PRN Q5MIN PRN MDD 3tabs Melatonin 5 Mg Tablet (Melatonin/Pyridoxine) 1 Each Tablet 6 Mg PO QHS Loperamide (Loperamide Hcl) 2 Mg Tablet 2 Mg PO PRN Q4HRS PRN MDD 16mg Keppra (Levetiracetam) 500 Mg Tablet 500 Mg PO BID Ferrous Sulfate 325 Mg Tablet 325 Mg PO DAILY Neurontin (Gabapentin) 300 Mg Capsule 300 Mg PO TID Voltaren (Diclofenac Sodium) 100 Gm Gel..gram. 4 Gm TP PRN QID PRN Budesonide 0.5 Mg/2 Ml Ampul.neb 0.5 Mg NEB PRN BID PRN Dicyclomine Hcl 10 Mg Capsule 10 Mg PO PRN Q8HRS PRN Artificial Tears Eye Drops (Dextran 70/Hypromellose) 15 Ml Drops 1 Drop OU TID PRN Anusol-Hc (Hydrocortisone Acetate) 25 Mg Supp.rect 25 Mg RC PRN Q12HR PRN Anusol-Hc (Hydrocortisone) 30 Gm Cream..g. 1 Sam RC PRN Q24HRS PRN Norvasc (Amlodipine Besylate) 10 Mg Tablet 10 Mg PO DAILY Alprazolam 0.5 Mg Tablet 0.5 Mg PO HS Tylenol (Acetaminophen) 325 Mg Tablet 650 Mg PO PRN Q6HRS PRN Albuterol Sulfate Neb Soln (Albuterol Sulfate) 2.5 Mg/3 Ml Vial.neb 2.5 Mg NEB PRN Q4HRS PRN Milk Of Magnesia (Magnesium Hydroxide) 400 Mg/5 Ml Oral.susp 2,400 Mg PO PRN QHS PRN Actos (Pioglitazone Hcl) 15 Mg Tablet 15 Mg PO DAILYWBKFT I have reviewed the current psychotropics carefully including drug interactions. Risk benefit ratio favors no change other than as noted in my dictated progress note. Diagnosis: Problems: (1) Anxiety disorder (2) Impulse control disorder (3) Major depressive disorder, recurrent episode (4) Mild cognitive impairment BEA SAWANT MD February 26, 2018 22:48
--- NOTE | 2018-02-26 23:19 | PDOC ---
Exam Note: Neal Note: Please also refer to the separate dictated note~for this date of service dictated separately.~Patient seen individually. Discussed the patient with Nursing staff reviewed the chart.~Reviewed interim history and current functioning. Reviewed vital signs,~Labs/ Radiology~and current medications noted below. Continue current treatment with the changes noted in the dictated addendum note Assessment: Vital Signs: Vital Signs Date Time Temp Pulse Resp B/P (MAP) Pulse Ox O2 Delivery O2 Flow Rate FiO2 02/26/18 21:35 98 Room Air 02/26/18 16:38 97.9 97 20 161/60 (93) I&O Intake and Output 02/26/18 07:00 Intake Total 240 ml Balance 240 ml Intake Oral 240 ml Labs: Laboratory Tests Test 02/26/18 08:09 02/26/18 12:15 02/26/18 17:16 02/26/18 19:43 Glucose (Fingerstick) 89 mg/dL (70-99) 122 mg/dL (70-99) H 349 mg/dL (70-99) H 91 mg/dL (70-99) Current Medications: Meds: Current Medications Acetaminophen (Tylenol) 1,000 mg 1X ONCE PO Last administered on 02/22/18at 03: 05; Start 02/22/18 at 03:30; Stop 02/22/18 at 03:31; Status DC Alprazolam (Xanax) 0.5 mg QHS PO Last administered on 02/26/18at 21:05; Start at 21:00 Duloxetine HCl (Cymbalta) 60 mg DAILY PO Last administered on 02/26/18at 11:48; Start 02/22/18 at 09:00 Melatonin 6 mg QHS PO Last administered on 02/26/18at 21:03; Start 02/22/18 at 21:00 Risperidone (RisperDAL) 0.25 mg BID PO Last administered on 02/23/18at 08:51; Start 02/22/18 at 09:00; Stop 02/23/18 at 13:23; Status DC Acetaminophen (Tylenol) 650 mg PRN Q6HRS PRN PO PAIN / TEMP; Start 02/22/18 at 05:00 Albuterol Sulfate (Ventolin) 2.5 mg PRN Q4HRS PRN NEB Dyspnea; Start 02/22/18 at 05:00 Diclofenac Sodium (Voltaren) 4 sam PRN QID PRN TP R Knee Pain; Start 02/22/18 at 05:00 Dicyclomine HCl (Bentyl) 10 mg PRN Q8HRS PRN PO Bowel Cramps; Start 02/22/18 at 05:00 Ferrous Sulfate (Feosol) 325 mg DAILY PO Last administered on 02/26/18at 11:55; Start 02/22/18 at 09:00 Gabapentin (Neurontin) 300 mg BID PO Last administered on 02/26/18at 21:03; Start 02/22/18 at 09:00 Hydrocortisone (Proctosol-Hc) 1 sam PRN Q24HRS PRN RC Hemorrhoids; Start at 05:00 Insulin Aspart (NovoLOG) BS 200-2,50= 2 un... TIDWMEALHC SQ ; Start 02/22/18 at 08:00; Stop 02/22/18 at 08:01; Status DC Al Hydroxide/Mg Hydroxide (Mylanta Plus Xs) 15 ml PRN AFTMEALHC PRN PO DYSPEPSIA; Start 02/22/18 at 05:00 Magnesium Hydroxide (Milk Of Magnesia) 2,400 mg PRN QHS PRN PO CONSTIPATION Last administered on 02/26/18at 21:15; Start 02/22/18 at 05:00 Nitroglycerin (Nitrostat) 0.4 mg PRN Q5MIN PRN SL CHEST PAIN; Start 02/22/18 at 05:00 Nystatin (Nystop) 1 sam PRN TID PRN TP REDNESS; Start 02/22/18 at 05:00 Oxycodone/ Acetaminophen (Percocet 10/325) 1 tab BID PO Last administered on at 21:05; Start 02/22/18 at 09:00 Oxycodone/ Acetaminophen (Percocet 10/325) 1 tab PRN Q4HRS PRN PO PAIN Last administered on 02/22/18at 10:09; Start 02/22/18 at 05:00 Amlodipine Besylate (Norvasc) 10 mg DAILY PO Last administered on 02/26/18at 11: 49; Start 02/22/18 at 09:00 Ascorbic Acid (Vitamin C) 500 mg DAILY PO Last administered on 02/26/18 11:49 ; Start 02/22/18 at 09:00 Budesonide (Pulmicort) 0.5 mg RTBID NEB Last administered on 02/26/18 21:33; Start 02/22/18 at 08:00 Celecoxib (CeleBREX) 100 mg BID PO Last administered on 02/26/18 21:03; Start 02/22/18 at 09:00 Artificial Tears (Artificial Tears) 1 drop TID PRN PRN OU DRY EYE; Start at 05:30 Famotidine (Pepcid) 20 mg DAILY PO Last administered on 02/26/18 11:49; Start 02/22/18 at 09:00 Guaifenesin (Robitussin Dm) 10 ml PRN Q4HRS PRN PO COUGH; Start 02/22/18 at 05: 30 Hydrocortisone Acetate (Anucort-Hc) 25 mg PRN Q12HR PRN [place] RECTAL PAIN; Start 02/22/18 at 05:30 Levetiracetam (Keppra) 500 mg BID PO Last administered on 02/26/18at 21:05; Start 02/22/18 at 09:00 Loperamide HCl (Imodium) 2 mg PRN Q4HRS PRN PO DIARRHEA; Start 02/22/18 at 05: 30 Ondansetron HCl (Zofran Odt) 4 mg PRN Q4HRS PRN PO NAUSEA/VOMITING; Start 02/22 at 05:30 Pioglitazone HCl (Actos) 15 mg DAILY PO Last administered on 02/26/18 11:49; Start 02/22/18 at 09:00 Multi-Ingredient Ointment (Analgesic [place]) 1 sam PRN QID PRN TP MUSCLE PAIN; Start 02/22/18 at 05:00 Insulin Human Lispro (HumaLOG) TIDWMEALHC SQ Last administered on 02/26/18 17 :00; Start 02/22/18 at 08:00 Mirtazapine (Remeron) 7.5 mg QHS PO Last administered on 02/26/18 21:03; Start 02/22/18 at 21:00 Risperidone (RisperDAL) 0.375 mg BID PO Last administered on 02/26/18 11:50; Start 02/23/18 at 21:00; Stop 02/26/18 at 19:49; Status DC Olanzapine (ZyPREXA ZYDIS) 5 mg PRN Q2HR PRN PO PSYCHOSIS; Start 02/23/18 at 19 :45 Divalproex Sodium (Depakote Sprinkles) 125 mg TID@0900,1300,1700 PO Last administered on 02/26/18at 17:00; Start 02/26/18 at 09:00 Risperidone (RisperDAL) 0.5 mg BID PO Last administered on 02/26/18at 21:03; Start 02/26/18 at 21:00 Active Scripts Active Reported Novolog Flexpen (Insulin Aspart) 100 Unit/1 Ml Insuln.pen 2-10 Units SQ TIDWMEALHC Risperdal (Risperidone) 0.25 Mg Tablet 0.25 Mg BID Cymbalta (Duloxetine Hcl) 60 Mg Capsule.dr 60 Mg PO DAILY Famotidine 20 Mg Tablet 20 Mg PO BID Mag-Al Plus Xs Suspension (Mag Hydrox/Al Hydrox/Simeth) 30 Ml Oral.susp 15 Ml PO PRN AFTMEALHC PRN Celebrex (Celecoxib) 100 Mg Capsule 100 Mg PO BID Vitamin C (Ascorbate Calcium) 500 Mg Tablet 500 Mg PO DAILY Robitussin Cough-Chest Dm Liq (Guaifenesin/Dextromethorphan) 237 Ml Liquid 10 Ml PO PRN Q4HRS PRN Percocet 10-325 Mg Tablet (Oxycodone Hcl/Acetaminophen) 1 Each Tablet 1 Tab PO PRN Q4HRS PRN Percocet 10-325 Mg Tablet (Oxycodone Hcl/Acetaminophen) 1 Each Tablet 1 Tab PO BID Ondansetron Hcl 4 Mg Tablet 4 Mg PO PRN Q4HRS PRN Nystatin 15 Gm Powder 1 Sam TP PRN TID PRN Nitrostat (Nitroglycerin) 0.4 Mg Tab.subl 0.4 Mg SL PRN Q5MIN PRN MDD 3tabs Melatonin 5 Mg Tablet (Melatonin/Pyridoxine) 1 Each Tablet 6 Mg PO QHS Loperamide (Loperamide Hcl) 2 Mg Tablet 2 Mg PO PRN Q4HRS PRN MDD 16mg Keppra (Levetiracetam) 500 Mg Tablet 500 Mg PO BID Ferrous Sulfate 325 Mg Tablet 325 Mg PO DAILY Neurontin (Gabapentin) 300 Mg Capsule 300 Mg PO TID Voltaren (Diclofenac Sodium) 100 Gm Gel..gram. 4 Gm TP PRN QID PRN Budesonide 0.5 Mg/2 Ml Ampul.neb 0.5 Mg NEB PRN BID PRN Dicyclomine Hcl 10 Mg Capsule 10 Mg PO PRN Q8HRS PRN Artificial Tears Eye Drops (Dextran 70/Hypromellose) 15 Ml Drops 1 Drop OU TID PRN Anusol-Hc (Hydrocortisone Acetate) 25 Mg Supp.rect 25 Mg RC PRN Q12HR PRN Anusol-Hc (Hydrocortisone) 30 Gm Cream..g. 1 Sam RC PRN Q24HRS PRN Norvasc (Amlodipine Besylate) 10 Mg Tablet 10 Mg PO DAILY Alprazolam 0.5 Mg Tablet 0.5 Mg PO HS Tylenol (Acetaminophen) 325 Mg Tablet 650 Mg PO PRN Q6HRS PRN Albuterol Sulfate Neb Soln (Albuterol Sulfate) 2.5 Mg/3 Ml Vial.neb 2.5 Mg NEB PRN Q4HRS PRN Milk Of Magnesia (Magnesium Hydroxide) 400 Mg/5 Ml Oral.susp 2,400 Mg PO PRN QHS PRN Actos (Pioglitazone Hcl) 15 Mg Tablet 15 Mg PO DAILYWBKFT I have reviewed the current psychotropics carefully including drug interactions. Risk benefit ratio favors no change other than as noted in my dictated progress note. Diagnosis: Problems: (1) Anxiety disorder (2) Impulse control disorder (3) Major depressive disorder, recurrent episode (4) Mild cognitive impairment BEA SAWANT MD February 26, 2018 23:19
[2018-02-27 06:06] VITALS: BP 140/70
[2018-02-27] MEDS: INSULIN LISPRO 300 UNITS/3 ML INSULN.PEN. SQ SCH ×4 (08:00→21:01)
[2018-02-27] MEDS: FERROUS SULFATE 325 MG TABLET. PO SCH (08:35)
[2018-02-27] MEDS: FAMOTIDINE 20 MG TABLET PO SCH (08:35)
[2018-02-27] MEDS: CELECOXIB 100 MG CAPSULE PO SCH ×2 (08:35→21:00)
[2018-02-27] MEDS: levETIRAcetam 500 MG TABLET PO SCH ×2 (08:35→21:00)
[2018-02-27] MEDS: GABAPENTIN 300 MG CAPSULE. PO SCH ×2 (08:36→21:00)
[2018-02-27] MEDS: DIVALPROEX 125 MG CAP.SPRINK PO SCH ×3 (08:36→17:42)
[2018-02-27] MEDS: DULoxetine HCL 60 MG CAPSULE.DR PO SCH (08:36)
[2018-02-27] MEDS: amLODIPine BESYLATE 10 MG TABLET PO SCH (08:36)
[2018-02-27] MEDS: PIOGLITAZONE 15 MG TABLET. PO SCH (08:38)
[2018-02-27] MEDS: oxyCODONE/APAP 10/325 1 TAB TABLET PO SCH ×2 (08:38→15:29)
[2018-02-27] MEDS: ASCORBIC ACID 500 MG TABLET PO SCH (08:38)
[2018-02-27] MEDS: risperiDONE 0.25 MG TABLET. PO SCH ×2 (08:38→21:00)
[2018-02-27] MEDS: BUDESONIDE 0.5 MG/2 ML NEBU NEB SCH ×2 (11:07→20:02)
[2018-02-27 15:41] VITALS: BP 155/89
--- NOTE | 2018-02-27 20:49 | PDOC ---
Exam Note: Neal Note: Please also refer to the separate dictated note~for this date of service dictated separately.~Patient seen individually. Discussed the patient with Nursing staff reviewed the chart.~Reviewed interim history and current functioning. Reviewed vital signs,~Labs/ Radiology~and current medications noted below. Continue current treatment with the changes noted in the dictated addendum note Assessment: Vital Signs: Vital Signs Date Time Temp Pulse Resp B/P (MAP) Pulse Ox O2 Delivery O2 Flow Rate FiO2 02/27/18 20:05 98 Room Air 02/27/18 15:41 97.1 95 20 155/89 (111) I&O Intake and Output 02/27/18 07:00 Intake Total 840 ml Balance 840 ml Intake Oral 840 ml Labs: Laboratory Tests Test 02/27/18 07:23 02/27/18 11:29 02/27/18 16:32 02/27/18 19:25 Glucose (Fingerstick) 173 mg/dL (70-99) H 304 mg/dL (70-99) H 140 mg/dL (70-99) H 223 mg/dL (70-99) H Current Medications: Meds: Current Medications Acetaminophen (Tylenol) 1,000 mg 1X ONCE PO Last administered on 02/22/18at 03: 05; Start 02/22/18 at 03:30; Stop 02/22/18 at 03:31; Status DC Alprazolam (Xanax) 0.5 mg QHS PO Last administered on 02/26/18at 21:05; Start at 21:00 Duloxetine HCl (Cymbalta) 60 mg DAILY PO Last administered on 02/27/18at 08:36; Start 02/22/18 at 09:00 Melatonin 6 mg QHS PO Last administered on 02/26/18at 21:03; Start 02/22/18 at 21:00 Risperidone (RisperDAL) 0.25 mg BID PO Last administered on 02/23/18at 08:51; Start 02/22/18 at 09:00; Stop 02/23/18 at 13:23; Status DC Acetaminophen (Tylenol) 650 mg PRN Q6HRS PRN PO PAIN / TEMP; Start 02/22/18 at 05:00 Albuterol Sulfate (Ventolin) 2.5 mg PRN Q4HRS PRN NEB Dyspnea; Start 02/22/18 at 05:00 Diclofenac Sodium (Voltaren) 4 sam PRN QID PRN TP R Knee Pain; Start 02/22/18 at 05:00 Dicyclomine HCl (Bentyl) 10 mg PRN Q8HRS PRN PO Bowel Cramps; Start 02/22/18 at 05:00 Ferrous Sulfate (Feosol) 325 mg DAILY PO Last administered on 02/27/18at 08:35; Start 02/22/18 at 09:00 Gabapentin (Neurontin) 300 mg BID PO Last administered on 02/27/18at 08:36; Start 02/22/18 at 09:00 Hydrocortisone (Proctosol-Hc) 1 sam PRN Q24HRS PRN RC Hemorrhoids; Start at 05:00 Insulin Aspart (NovoLOG) BS 200-2,50= 2 un... TIDWMEALHC SQ ; Start 02/22/18 at 08:00; Stop 02/22/18 at 08:01; Status DC Al Hydroxide/Mg Hydroxide (Mylanta Plus Xs) 15 ml PRN AFTMEALHC PRN PO DYSPEPSIA; Start 02/22/18 at 05:00 Magnesium Hydroxide (Milk Of Magnesia) 2,400 mg PRN QHS PRN PO CONSTIPATION Last administered on 02/26/18at 21:15; Start 02/22/18 at 05:00 Nitroglycerin (Nitrostat) 0.4 mg PRN Q5MIN PRN SL CHEST PAIN; Start 02/22/18 at 05:00 Nystatin (Nystop) 1 sam PRN TID PRN TP REDNESS; Start 02/22/18 at 05:00 Oxycodone/ Acetaminophen (Percocet 10/325) 1 tab BID PO Last administered on at 15:29; Start 02/22/18 at 09:00 Oxycodone/ Acetaminophen (Percocet 10/325) 1 tab PRN Q4HRS PRN PO PAIN Last administered on 02/22/18at 10:09; Start 02/22/18 at 05:00 Amlodipine Besylate (Norvasc) 10 mg DAILY PO Last administered on 02/27/18at 08: 36; Start 02/22/18 at 09:00 Ascorbic Acid (Vitamin C) 500 mg DAILY PO Last administered on 02/27/18 08:38 ; Start 02/22/18 at 09:00 Budesonide (Pulmicort) 0.5 mg RTBID NEB Last administered on 02/27/18 20:02; Start 02/22/18 at 08:00 Celecoxib (CeleBREX) 100 mg BID PO Last administered on 02/27/18 08:35; Start 02/22/18 at 09:00 Artificial Tears (Artificial Tears) 1 drop TID PRN PRN OU DRY EYE; Start at 05:30 Famotidine (Pepcid) 20 mg DAILY PO Last administered on 02/27/18 08:35; Start 02/22/18 at 09:00 Guaifenesin (Robitussin Dm) 10 ml PRN Q4HRS PRN PO COUGH; Start 02/22/18 at 05: 30 Hydrocortisone Acetate (Anucort-Hc) 25 mg PRN Q12HR PRN [place] RECTAL PAIN; Start 02/22/18 at 05:30 Levetiracetam (Keppra) 500 mg BID PO Last administered on 02/27/18 08:35; Start 02/22/18 at 09:00 Loperamide HCl (Imodium) 2 mg PRN Q4HRS PRN PO DIARRHEA; Start 02/22/18 at 05: 30 Ondansetron HCl (Zofran Odt) 4 mg PRN Q4HRS PRN PO NAUSEA/VOMITING; Start 02/22 at 05:30 Pioglitazone HCl (Actos) 15 mg DAILY PO Last administered on 02/27/18at 08:38; Start 02/22/18 at 09:00 Multi-Ingredient Ointment (Analgesic [place]) 1 sam PRN QID PRN TP MUSCLE PAIN; Start 02/22/18 at 05:00 Insulin Human Lispro (HumaLOG) TIDWMEALHC SQ Last administered on 02/27/18at 12 :57; Start 02/22/18 at 08:00 Mirtazapine (Remeron) 7.5 mg QHS PO Last administered on 02/26/18 21:03; Start 02/22/18 at 21:00 Risperidone (RisperDAL) 0.375 mg BID PO Last administered on 02/26/18at 11:50; Start 02/23/18 at 21:00; Stop 02/26/18 at 19:49; Status DC Olanzapine (ZyPREXA ZYDIS) 5 mg PRN Q2HR PRN PO PSYCHOSIS; Start 02/23/18 at 19 :45 Divalproex Sodium (Depakote Sprinkles) 125 mg TID@0900,1300,1700 PO Last administered on 02/27/18at 17:42; Start 02/26/18 at 09:00 Risperidone (RisperDAL) 0.5 mg BID PO Last administered on 02/27/18at 08:38; Start 02/26/18 at 21:00 Active Scripts Active Reported Novolog Flexpen (Insulin Aspart) 100 Unit/1 Ml Insuln.pen 2-10 Units SQ TIDWMEALHC Risperdal (Risperidone) 0.25 Mg Tablet 0.25 Mg BID Cymbalta (Duloxetine Hcl) 60 Mg Capsule.dr 60 Mg PO DAILY Famotidine 20 Mg Tablet 20 Mg PO BID Mag-Al Plus Xs Suspension (Mag Hydrox/Al Hydrox/Simeth) 30 Ml Oral.susp 15 Ml PO PRN AFTMEALHC PRN Celebrex (Celecoxib) 100 Mg Capsule 100 Mg PO BID Vitamin C (Ascorbate Calcium) 500 Mg Tablet 500 Mg PO DAILY Robitussin Cough-Chest Dm Liq (Guaifenesin/Dextromethorphan) 237 Ml Liquid 10 Ml PO PRN Q4HRS PRN Percocet 10-325 Mg Tablet (Oxycodone Hcl/Acetaminophen) 1 Each Tablet 1 Tab PO PRN Q4HRS PRN Percocet 10-325 Mg Tablet (Oxycodone Hcl/Acetaminophen) 1 Each Tablet 1 Tab PO BID Ondansetron Hcl 4 Mg Tablet 4 Mg PO PRN Q4HRS PRN Nystatin 15 Gm Powder 1 Sam TP PRN TID PRN Nitrostat (Nitroglycerin) 0.4 Mg Tab.subl 0.4 Mg SL PRN Q5MIN PRN MDD 3tabs Melatonin 5 Mg Tablet (Melatonin/Pyridoxine) 1 Each Tablet 6 Mg PO QHS Loperamide (Loperamide Hcl) 2 Mg Tablet 2 Mg PO PRN Q4HRS PRN MDD 16mg Keppra (Levetiracetam) 500 Mg Tablet 500 Mg PO BID Ferrous Sulfate 325 Mg Tablet 325 Mg PO DAILY Neurontin (Gabapentin) 300 Mg Capsule 300 Mg PO TID Voltaren (Diclofenac Sodium) 100 Gm Gel..gram. 4 Gm TP PRN QID PRN Budesonide 0.5 Mg/2 Ml Ampul.neb 0.5 Mg NEB PRN BID PRN Dicyclomine Hcl 10 Mg Capsule 10 Mg PO PRN Q8HRS PRN Artificial Tears Eye Drops (Dextran 70/Hypromellose) 15 Ml Drops 1 Drop OU TID PRN Anusol-Hc (Hydrocortisone Acetate) 25 Mg Supp.rect 25 Mg RC PRN Q12HR PRN Anusol-Hc (Hydrocortisone) 30 Gm Cream..g. 1 Sam RC PRN Q24HRS PRN Norvasc (Amlodipine Besylate) 10 Mg Tablet 10 Mg PO DAILY Alprazolam 0.5 Mg Tablet 0.5 Mg PO HS Tylenol (Acetaminophen) 325 Mg Tablet 650 Mg PO PRN Q6HRS PRN Albuterol Sulfate Neb Soln (Albuterol Sulfate) 2.5 Mg/3 Ml Vial.neb 2.5 Mg NEB PRN Q4HRS PRN Milk Of Magnesia (Magnesium Hydroxide) 400 Mg/5 Ml Oral.susp 2,400 Mg PO PRN QHS PRN Actos (Pioglitazone Hcl) 15 Mg Tablet 15 Mg PO DAILYWBKFT I have reviewed the current psychotropics carefully including drug interactions. Risk benefit ratio favors no change other than as noted in my dictated progress note. Diagnosis: Problems: (1) Anxiety disorder (2) Impulse control disorder (3) Major depressive disorder, recurrent episode (4) Mild cognitive impairment BEA SAWANT MD February 27, 2018 20:49
[2018-02-27] MEDS: MIRTAZAPINE 7.5 MG TABLET. PO SCH (20:59)
[2018-02-27] MEDS: MELATONIN 3 MG TABLET PO SCH (21:00)
[2018-02-27] MEDS: ALPRAZolam 0.5 MG TABLET PO SCH (21:02)
[2018-02-28 06:12] VITALS: BP 138/69
[2018-02-28] MEDS: INSULIN LISPRO 300 UNITS/3 ML INSULN.PEN. SQ SCH ×4 (08:00→20:51)
--- NOTE | 2018-02-28 09:05 | PN ---
DATE: 02/25/2018 PSYCHIATRIC PROGRESS NOTE This is a late entry of 02/25/2018 covers elements not covered in my initial note 02/25/2018. SUBJECTIVE: I met with the patient in the evening. The patient slept 7 hours previous evening, was quite paranoid at night, delusional regarding another female patient, believes that her brother has been hurt and placed in snf. During the day on 02/25/2018, she is little more pleasant. REVIEW OF SYSTEMS: No CV, , pulmonary, eye, ENT system symptoms on review. MENTAL STATUS EXAM: Oriented to herself and situation. Speech has some latency, coherent. Abstraction fair, computation impaired, language function intact. Mood and affect remain somewhat withdrawn at times. LABORATORY DATA: Reviewed. IMPRESSION: Unchanged from initial note. PLAN: Add Depakote Sprinkles 125 mg 9 a.m., 1 p.m., 5 p.m. Check CBC, CMP, valproic acid level in 3 days. The patient does appear to have symptoms suggestive of bipolar disorder. She initially presented depressed and perhaps was part of the mood bipolar disorder rather than unipolar depression. Would continue Cymbalta, Risperdal, Xanax, melatonin, Remeron along with Zyprexa p.r.n. BEA SAWANT MD DR: MARK/daphne JOB#: [id number] / [id number]
[2018-02-28] MEDS: DIVALPROEX 125 MG CAP.SPRINK PO SCH ×3 (09:33→17:00)
[2018-02-28] MEDS: levETIRAcetam 500 MG TABLET PO SCH ×2 (09:33→20:50)
[2018-02-28] MEDS: DULoxetine HCL 60 MG CAPSULE.DR PO SCH (09:33)
[2018-02-28] MEDS: amLODIPine BESYLATE 10 MG TABLET PO SCH (09:34)
[2018-02-28] MEDS: risperiDONE 0.25 MG TABLET. PO SCH ×2 (09:34→20:47)
[2018-02-28] MEDS: GABAPENTIN 300 MG CAPSULE. PO SCH ×2 (09:34→20:47)
[2018-02-28] MEDS: ASCORBIC ACID 500 MG TABLET PO SCH (09:35)
[2018-02-28] MEDS: CELECOXIB 100 MG CAPSULE PO SCH ×2 (09:35→20:46)
[2018-02-28] MEDS: FERROUS SULFATE 325 MG TABLET. PO SCH (09:35)
[2018-02-28] MEDS: FAMOTIDINE 20 MG TABLET PO SCH (09:35)
[2018-02-28] MEDS: PIOGLITAZONE 15 MG TABLET. PO SCH (09:35)
[2018-02-28] MEDS: oxyCODONE/APAP 10/325 1 TAB TABLET PO SCH ×2 (09:36→20:50)
[2018-02-28] MEDS: BUDESONIDE 0.5 MG/2 ML NEBU NEB SCH ×2 (10:27→20:00)
--- NOTE | 2018-02-28 13:10 | PN ---
DATE: 02/26/2018 PSYCHIATRIC PROGRESS NOTE This is a late entry 02/26/2018, covers elements not covered in my initial note 02/26/2018. SUBJECTIVE: I met with the patient in the evening. The patient slept 7-1/2 hours previous evening. Did not have any breakfast, ate some lunch. Remains paranoid and was telling one of the other patients on the unit that she resented that the patient . REVIEW OF SYSTEMS: No CV, , pulmonary, eye system symptoms on review. Gait unsteady with walker. MENTAL STATUS EXAM: Oriented to herself and situation. Speech has some latency, coherent. Abstraction fair, computation impaired, language function intact, attention span short. Mood and affect remain somewhat labile at times. LABORATORY DATA: Reviewed. IMPRESSION: Unchanged from initial note. PLAN: Increase Risperdal from 0.375 mg b.i.d. to 0.5 mg b.i.d. Continue rest unchanged including Depakote, Cymbalta, melatonin, Remeron, Xanax, and Zyprexa p.r.n. BEA SAWANT MD DR: MARK/daphne JOB#: [id number] / [id number]
--- NOTE | 2018-02-28 15:10 | PN ---
DATE: PSYCHIATRIC PROGRESS NOTE DATE OF SERVICE: 02/27/2018 This note covers elements not covered in my initial note 02/27/2018. SUBJECTIVE: I met with the patient in the evening. The patient slept 5-3/4 hours. At dinnertime she is helpless, refused to walk, was in the wheelchair then seemed to recover and has been ambulating with walker since then. REVIEW OF SYSTEMS: No CV, , pulmonary, eye, ENT system symptoms on review. MENTAL STATUS EXAM: Oriented to herself and situation. Speech is coherent, abstraction fair, computation somewhat impaired, language function intact, attention span short. Mood and affect less depressed. No suicidal or homicidal ideation. LABORATORIES: Reviewed. IMPRESSION: Major depressive disorder with psychotic features in partial remission. Rest unchanged. PLAN: Risperdal was increased to 0.5 mg twice a day. We will continue Xanax 0.5 mg at bedtime, Cymbalta 60 mg a day, melatonin 6 mg at bedtime, Remeron 7.5 at bedtime, Zyprexa p.r.n., Depakote Sprinkles 125 mg 3 times a day at 9, 1300, 1700. Check CBC, CMP, valproic acid level on 03/02/2018. Continue rest unchanged. BEA SAWANT MD DR: MARK/daphne JOB#: [id number] / [id number]
[2018-02-28 16:19] VITALS: BP 173/74
[2018-02-28] MEDS: MELATONIN 3 MG TABLET PO SCH (20:46)
[2018-02-28] MEDS: MIRTAZAPINE 7.5 MG TABLET. PO SCH (20:47)
--- NOTE | 2018-02-28 20:47 | PDOC ---
Exam Note: Neal Note: Please also refer to the separate dictated note~for this date of service dictated separately.~Patient seen individually. Discussed the patient with Nursing staff reviewed the chart.~Reviewed interim history and current functioning. Reviewed vital signs,~Labs/ Radiology~and current medications noted below. Continue current treatment with the changes noted in the dictated addendum note Assessment: Vital Signs: Vital Signs Date Time Temp Pulse Resp B/P (MAP) Pulse Ox O2 Delivery O2 Flow Rate FiO2 02/28/18 16:19 97.9 106 16 173/74 (107) 92 02/28/18 10:28 Room Air I&O Intake and Output 02/28/18 07:00 Intake Total 1400 ml Balance 1400 ml Intake Oral 1400 ml Labs: Laboratory Tests Test 02/28/18 08:06 02/28/18 11:21 02/28/18 16:30 02/28/18 19:19 Glucose (Fingerstick) 146 mg/dL (70-99) H 176 mg/dL (70-99) H 241 mg/dL (70-99) H 294 mg/dL (70-99) H Current Medications: Meds: Current Medications Acetaminophen (Tylenol) 1,000 mg 1X ONCE PO Last administered on 02/22/18at 03: 05; Start 02/22/18 at 03:30; Stop 02/22/18 at 03:31; Status DC Alprazolam (Xanax) 0.5 mg QHS PO Last administered on 02/27/18at 21:02; Start at 21:00 Duloxetine HCl (Cymbalta) 60 mg DAILY PO Last administered on 02/28/18at 09:33; Start 02/22/18 at 09:00 Melatonin 6 mg QHS PO Last administered on 02/27/18at 21:00; Start 02/22/18 at 21:00 Risperidone (RisperDAL) 0.25 mg BID PO Last administered on 02/23/18at 08:51; Start 02/22/18 at 09:00; Stop 02/23/18 at 13:23; Status DC Acetaminophen (Tylenol) 650 mg PRN Q6HRS PRN PO PAIN / TEMP; Start 02/22/18 at 05:00 Albuterol Sulfate (Ventolin) 2.5 mg PRN Q4HRS PRN NEB Dyspnea; Start 02/22/18 at 05:00 Diclofenac Sodium (Voltaren) 4 sam PRN QID PRN TP R Knee Pain; Start 02/22/18 at 05:00 Dicyclomine HCl (Bentyl) 10 mg PRN Q8HRS PRN PO Bowel Cramps; Start 02/22/18 at 05:00 Ferrous Sulfate (Feosol) 325 mg DAILY PO Last administered on 02/28/18at 09:35; Start 02/22/18 at 09:00 Gabapentin (Neurontin) 300 mg BID PO Last administered on 02/28/18at 09:34; Start 02/22/18 at 09:00 Hydrocortisone (Proctosol-Hc) 1 sam PRN Q24HRS PRN RC Hemorrhoids; Start at 05:00 Insulin Aspart (NovoLOG) BS 200-2,50= 2 un... TIDWMEALHC SQ ; Start 02/22/18 at 08:00; Stop 02/22/18 at 08:01; Status DC Al Hydroxide/Mg Hydroxide (Mylanta Plus Xs) 15 ml PRN AFTMEALHC PRN PO DYSPEPSIA; Start 02/22/18 at 05:00 Magnesium Hydroxide (Milk Of Magnesia) 2,400 mg PRN QHS PRN PO CONSTIPATION Last administered on 02/26/18at 21:15; Start 02/22/18 at 05:00 Nitroglycerin (Nitrostat) 0.4 mg PRN Q5MIN PRN SL CHEST PAIN; Start 02/22/18 at 05:00 Nystatin (Nystop) 1 sam PRN TID PRN TP REDNESS; Start 02/22/18 at 05:00 Oxycodone/ Acetaminophen (Percocet 10/325) 1 tab BID PO Last administered on at 09:36; Start 02/22/18 at 09:00 Oxycodone/ Acetaminophen (Percocet 10/325) 1 tab PRN Q4HRS PRN PO PAIN Last administered on 02/22/18at 10:09; Start 02/22/18 at 05:00 Amlodipine Besylate (Norvasc) 10 mg DAILY PO Last administered on 02/28/18at 09: 34; Start 02/22/18 at 09:00 Ascorbic Acid (Vitamin C) 500 mg DAILY PO Last administered on 02/28/18 09:35 ; Start 02/22/18 at 09:00 Budesonide (Pulmicort) 0.5 mg RTBID NEB Last administered on 02/28/18 10:27; Start 02/22/18 at 08:00 Celecoxib (CeleBREX) 100 mg BID PO Last administered on 02/28/18 09:35; Start 02/22/18 at 09:00 Artificial Tears (Artificial Tears) 1 drop TID PRN PRN OU DRY EYE; Start at 05:30 Famotidine (Pepcid) 20 mg DAILY PO Last administered on 02/28/18 09:35; Start 02/22/18 at 09:00 Guaifenesin (Robitussin Dm) 10 ml PRN Q4HRS PRN PO COUGH; Start 02/22/18 at 05: 30 Hydrocortisone Acetate (Anucort-Hc) 25 mg PRN Q12HR PRN [place] RECTAL PAIN; Start 02/22/18 at 05:30 Levetiracetam (Keppra) 500 mg BID PO Last administered on 02/28/18 09:33; Start 02/22/18 at 09:00 Loperamide HCl (Imodium) 2 mg PRN Q4HRS PRN PO DIARRHEA; Start 02/22/18 at 05: 30 Ondansetron HCl (Zofran Odt) 4 mg PRN Q4HRS PRN PO NAUSEA/VOMITING; Start 02/22 at 05:30 Pioglitazone HCl (Actos) 15 mg DAILY PO Last administered on 02/28/18at 09:35; Start 02/22/18 at 09:00 Multi-Ingredient Ointment (Analgesic Black) 1 sam PRN QID PRN TP MUSCLE PAIN; Start 02/22/18 at 05:00 Insulin Human Lispro (HumaLOG) TIDWMEALHC SQ Last administered on 02/28/18 17 :23; Start 02/22/18 at 08:00 Mirtazapine (Remeron) 7.5 mg QHS PO Last administered on 02/27/18at 20:59; Start 02/22/18 at 21:00 Risperidone (RisperDAL) 0.375 mg BID PO Last administered on 02/26/18at 11:50; Start 02/23/18 at 21:00; Stop 02/26/18 at 19:49; Status DC Olanzapine (ZyPREXA ZYDIS) 5 mg PRN Q2HR PRN PO PSYCHOSIS Last administered on 02/28/18at 15:17; Start 02/23/18 at 19:45 Divalproex Sodium (Depakote Sprinkles) 125 mg TID@0900,1300,1700 PO Last administered on 02/28/18at 17:00; Start 02/26/18 at 09:00 Risperidone (RisperDAL) 0.5 mg BID PO Last administered on 02/28/18at 09:34; Start 02/26/18 at 21:00 Active Scripts Active Reported Novolog Flexpen (Insulin Aspart) 100 Unit/1 Ml Insuln.pen 2-10 Units SQ TIDWMEALHC Risperdal (Risperidone) 0.25 Mg Tablet 0.25 Mg BID Cymbalta (Duloxetine Hcl) 60 Mg Capsule.dr 60 Mg PO DAILY Famotidine 20 Mg Tablet 20 Mg PO BID Mag-Al Plus Xs Suspension (Mag Hydrox/Al Hydrox/Simeth) 30 Ml Oral.susp 15 Ml PO PRN AFTMEALHC PRN Celebrex (Celecoxib) 100 Mg Capsule 100 Mg PO BID Vitamin C (Ascorbate Calcium) 500 Mg Tablet 500 Mg PO DAILY Robitussin Cough-Chest Dm Liq (Guaifenesin/Dextromethorphan) 237 Ml Liquid 10 Ml PO PRN Q4HRS PRN Percocet 10-325 Mg Tablet (Oxycodone Hcl/Acetaminophen) 1 Each Tablet 1 Tab PO PRN Q4HRS PRN Percocet 10-325 Mg Tablet (Oxycodone Hcl/Acetaminophen) 1 Each Tablet 1 Tab PO BID Ondansetron Hcl 4 Mg Tablet 4 Mg PO PRN Q4HRS PRN Nystatin 15 Gm Powder 1 Sam TP PRN TID PRN Nitrostat (Nitroglycerin) 0.4 Mg Tab.subl 0.4 Mg SL PRN Q5MIN PRN MDD 3tabs Melatonin 5 Mg Tablet (Melatonin/Pyridoxine) 1 Each Tablet 6 Mg PO QHS Loperamide (Loperamide Hcl) 2 Mg Tablet 2 Mg PO PRN Q4HRS PRN MDD 16mg Keppra (Levetiracetam) 500 Mg Tablet 500 Mg PO BID Ferrous Sulfate 325 Mg Tablet 325 Mg PO DAILY Neurontin (Gabapentin) 300 Mg Capsule 300 Mg PO TID Voltaren (Diclofenac Sodium) 100 Gm Gel..gram. 4 Gm TP PRN QID PRN Budesonide 0.5 Mg/2 Ml Ampul.neb 0.5 Mg NEB PRN BID PRN Dicyclomine Hcl 10 Mg Capsule 10 Mg PO PRN Q8HRS PRN Artificial Tears Eye Drops (Dextran 70/Hypromellose) 15 Ml Drops 1 Drop OU TID PRN Anusol-Hc (Hydrocortisone Acetate) 25 Mg Supp.rect 25 Mg RC PRN Q12HR PRN Anusol-Hc (Hydrocortisone) 30 Gm Cream..g. 1 Sam RC PRN Q24HRS PRN Norvasc (Amlodipine Besylate) 10 Mg Tablet 10 Mg PO DAILY Alprazolam 0.5 Mg Tablet 0.5 Mg PO HS Tylenol (Acetaminophen) 325 Mg Tablet 650 Mg PO PRN Q6HRS PRN Albuterol Sulfate Neb Soln (Albuterol Sulfate) 2.5 Mg/3 Ml Vial.neb 2.5 Mg NEB PRN Q4HRS PRN Milk Of Magnesia (Magnesium Hydroxide) 400 Mg/5 Ml Oral.susp 2,400 Mg PO PRN QHS PRN Actos (Pioglitazone Hcl) 15 Mg Tablet 15 Mg PO [id number] I have reviewed the current psychotropics carefully including drug interactions. Risk benefit ratio favors no change other than as noted in my dictated progress note. Diagnosis: Problems: (1) Anxiety disorder (2) Impulse control disorder (3) Major depressive disorder, recurrent episode (4) Mild cognitive impairment BEA SAWANT MD February 28, 2018 20:47
[2018-02-28] MEDS: ALPRAZolam 0.5 MG TABLET PO SCH (20:50)
[2018-03-01 06:40] VITALS: BP 166/79
--- NOTE | 2018-03-01 07:10 | PN ---
DATE: 02/28/2018 SUBJECTIVE: The patient was seen today, met with the staff, chart reviewed and also covering for Dr. Gregory. Staff reports the patient is constantly complaining about back pain. The patient says she is having difficulty moving her arms and her back and claims that she had a fall before she was coming here. The patient is still irritable, archibald, restless. OBSERVATION: VITAL SIGNS: Temperature 97.3, blood pressure 138/69, pulse 72, respiration 18, and O2 sat 92%. Slept about 8 hours last night. The patient's appetite improved. MEDICATIONS: The patient's medications are reviewed. He is currently on Risperdal 0.5 mg b.i.d., Depakote 125 mg t.i.d., mirtazapine 7.5 mg at night, melatonin 6 mg at night, Xanax 0.5 mg at night, also olanzapine 5 mg q.2 hours p.r.n. The patient is also on Keppra 500 mg b.i.d., Pepcid 20 mg daily, Celebrex 100 mg b.i.d., amlodipine 10 mg daily, Percocet ____ mg b.i.d., gabapentin 300 mg b.i.d., ferrous sulfate 325 mg daily, Cymbalta 60 mg daily. She is also on insulin. The patient is not presenting with any major behavior problems at this time. ASSESSMENT: Major depressive disorder, psychotic symptoms, mild cognitive disorder. PLAN: She is to continue with the treatment. LOUIS CORONEL MD DR: SHERRILL/daphne JOB#: [id number] / [id number]
[2018-03-01] MEDS: INSULIN LISPRO 300 UNITS/3 ML INSULN.PEN. SQ SCH ×4 (08:00→20:21)
[2018-03-01] MEDS: levETIRAcetam 500 MG TABLET PO SCH ×2 (09:00→20:15)
[2018-03-01] MEDS: DIVALPROEX 125 MG CAP.SPRINK PO SCH ×3 (10:16→17:39)
[2018-03-01] MEDS: FAMOTIDINE 20 MG TABLET PO SCH (10:16)
[2018-03-01] MEDS: DULoxetine HCL 60 MG CAPSULE.DR PO SCH (10:16)
[2018-03-01] MEDS: amLODIPine BESYLATE 10 MG TABLET PO SCH (10:17)
[2018-03-01] MEDS: ASCORBIC ACID 500 MG TABLET PO SCH (10:17)
[2018-03-01] MEDS: FERROUS SULFATE 325 MG TABLET. PO SCH (10:17)
[2018-03-01] MEDS: GABAPENTIN 300 MG CAPSULE. PO SCH ×2 (10:17→20:15)
[2018-03-01] MEDS: risperiDONE 0.25 MG TABLET. PO SCH ×2 (10:17→20:16)
[2018-03-01] MEDS: CELECOXIB 100 MG CAPSULE PO SCH ×2 (10:17→20:15)
[2018-03-01] MEDS: BUDESONIDE 0.5 MG/2 ML NEBU NEB SCH ×2 (10:24→22:09)
[2018-03-01 10:30] LABS: ALBUMIN 3.2 g/dL (3.4-5.0); ALBUMIN/GLOBULIN RATIO 0.8 (1.0-1.7); ALK PHOS 96 U/L (46-116); ALT (SGPT) 29 U/L (14-59); ANION GAP 6 (6-14); AST (SGOT) 15 U/L (15-37); BLOOD UREA NITROGEN 24 mg/dL (7-20); BUN/CREATININE RATIO 22 (6-20); CALCIUM 9.1 mg/dL (8.5-10.1); CARBON DIOXIDE 30 mmol/L (21-32); CHLORIDE 108 mmol/L (98-107); CREATININE 1.1 mg/dL (0.6-1.0); GFR 59.1; GLUCOSE 140 mg/dL (70-99); POTASSIUM 4.8 mmol/L (3.5-5.1); SODIUM 144 mmol/L (136-145); TOTAL BILIRUBIN 0.3 mg/dL (0.2-1.0); TOTAL PROTEIN 7.3 g/dL (6.4-8.2)
[2018-03-01 10:32] LABS: VAL ACID 21 mcg/mL (50-100)
[2018-03-01] MEDS: PIOGLITAZONE 15 MG TABLET. PO SCH (10:42)
[2018-03-01] MEDS: oxyCODONE/APAP 10/325 1 TAB TABLET PO SCH ×2 (10:42→20:19)
[2018-03-01 11:18] LABS: BASO % 1 % (0-3); EOS # 0.1 x10^3/uL (0.0-0.7); EOS % 2 % (0-3); HEMATOCRIT 29.1 % (36.0-47.0); HEMOGLOBIN 9.6 g/dL (12.0-15.5); LYMPH # 1.5 x10^3/uL (1.0-4.8); LYMPH % 30 % (24-48); MEAN CORPUSCULAR HEMOGLOBIN 27 pg (25-35); MEAN CORPUSCULAR HGB CONC 33 g/dL (31-37); MEAN CORPUSCULAR VOLUME 83 fL (79-100); MONO # 0.4 x10^3/uL (0.0-1.1); MONO % 7 % (0-9); NEUT # 3.1 x10^3uL (1.8-7.7); NEUT % 60 % (31-73); PLATELET COUNT 201 x10^3/uL (140-400); RED BLOOD COUNT 3.51 x10^6/uL (3.50-5.40); WHITE BLOOD COUNT 5.2 x10^3/uL (4.0-11.0)
[2018-03-01 16:46] VITALS: BP 142/67
[2018-03-01 16:47] VITALS: BP 168/66
[2018-03-01] MEDS: MELATONIN 3 MG TABLET PO SCH (20:15)
[2018-03-01] MEDS: MIRTAZAPINE 7.5 MG TABLET. PO SCH (20:15)
[2018-03-01] MEDS: ALPRAZolam 0.5 MG TABLET PO SCH (20:19)
[2018-03-02 06:38] VITALS: BP 187/88
[2018-03-02] MEDS: INSULIN LISPRO 300 UNITS/3 ML INSULN.PEN. SQ SCH ×4 (08:00→20:43)
[2018-03-02] MEDS: GABAPENTIN 300 MG CAPSULE. PO SCH ×2 (08:16→19:24)
[2018-03-02] MEDS: DULoxetine HCL 60 MG CAPSULE.DR PO SCH (08:16)
[2018-03-02] MEDS: ASCORBIC ACID 500 MG TABLET PO SCH (08:16)
[2018-03-02] MEDS: PIOGLITAZONE 15 MG TABLET. PO SCH (08:16)
[2018-03-02] MEDS: FAMOTIDINE 20 MG TABLET PO SCH (08:17)
[2018-03-02] MEDS: levETIRAcetam 500 MG TABLET PO SCH ×2 (08:17→19:24)
[2018-03-02] MEDS: risperiDONE 0.25 MG TABLET. PO SCH ×2 (08:17→19:24)
[2018-03-02] MEDS: amLODIPine BESYLATE 10 MG TABLET PO SCH (08:17)
[2018-03-02] MEDS: FERROUS SULFATE 325 MG TABLET. PO SCH (08:17)
[2018-03-02] MEDS: CELECOXIB 100 MG CAPSULE PO SCH ×2 (08:18→19:25)
[2018-03-02] MEDS: oxyCODONE/APAP 10/325 1 TAB TABLET PO SCH ×2 (08:19→19:29)
[2018-03-02] MEDS: DIVALPROEX 125 MG CAP.SPRINK PO SCH ×3 (08:19→18:16)
[2018-03-02] MEDS: BUDESONIDE 0.5 MG/2 ML NEBU NEB SCH ×2 (11:08→23:30)
[2018-03-02 16:45] VITALS: BP 128/61
[2018-03-02] MEDS: MIRTAZAPINE 7.5 MG TABLET. PO SCH (19:24)
[2018-03-02] MEDS: ALPRAZolam 0.5 MG TABLET PO SCH (19:29)
[2018-03-02] MEDS: MELATONIN 3 MG TABLET PO SCH (19:29)
--- NOTE | 2018-03-02 20:01 | PDOC ---
Exam Note: Neal Note: Late entry for date of service March 01, 2018. Please also refer to the separate dictated note~for this date of service dictated separately.~Patient seen individually. Discussed the patient with Nursing staff reviewed the chart.~ Reviewed interim history and current functioning. Reviewed vital signs,~Labs/ Radiology~and current medications noted below. Continue current treatment with the changes noted in the dictated addendum note Assessment: Vital Signs: VS - Last 72 Hours, by Label Date Time Temp Pulse Resp B/P (MAP) Pulse Ox O2 Delivery O2 Flow Rate FiO2 03/02/18 16:45 97.6 94 18 128/61 (83) 94 03/02/18 11:09 95 Room Air 03/02/18 08:17 86 187/88 03/02/18 06:38 97.9 86 16 187/88 (121) 100 03/01/18 22:15 98 Room Air 03/01/18 16:47 96.7 96 18 168/66 (100) 94 Room Air 03/01/18 16:46 96.7 96 18 142/67 (92) 94 Room Air 03/01/18 10:24 100 Room Air 03/01/18 10:17 79 166/79 03/01/18 06:40 97.6 79 16 166/79 (108) 98 02/28/18 16:19 97.9 106 16 173/74 (107) 92 02/28/18 10:28 97 Room Air 02/28/18 09:34 72 138/69 02/28/18 06:12 97.3 72 18 138/69 (92) 92 02/27/18 20:05 98 Room Air Vital Signs Date Time Temp Pulse Resp B/P (MAP) Pulse Ox O2 Delivery O2 Flow Rate FiO2 03/02/18 16:45 97.6 94 18 128/61 (83) 94 03/02/18 11:09 Room Air I&O Intake and Output 03/02/18 07:00 Intake Total 1200 ml Balance 1200 ml Intake Oral 1200 ml Labs: Laboratory Tests Test 03/02/18 07:42 03/02/18 11:11 03/02/18 16:22 03/02/18 19:21 Glucose (Fingerstick) 129 mg/dL (70-99) H 265 mg/dL (70-99) H 288 mg/dL (70-99) H 358 mg/dL (70-99) H Current Medications: Meds: Current Medications Acetaminophen (Tylenol) 1,000 mg 1X ONCE PO Last administered on 02/22/18at 03: 05; Start 02/22/18 at 03:30; Stop 02/22/18 at 03:31; Status DC Alprazolam (Xanax) 0.5 mg QHS PO Last administered on 03/02/18at 19:29; Start at 21:00 Duloxetine HCl (Cymbalta) 60 mg DAILY PO Last administered on 03/02/18at 08:16; Start 02/22/18 at 09:00 Melatonin 6 mg QHS PO Last administered on 03/02/18at 19:29; Start 02/22/18 at 21:00 Risperidone (RisperDAL) 0.25 mg BID PO Last administered on 02/23/18at 08:51; Start 02/22/18 at 09:00; Stop 02/23/18 at 13:23; Status DC Acetaminophen (Tylenol) 650 mg PRN Q6HRS PRN PO PAIN / TEMP; Start 02/22/18 at 05:00 Albuterol Sulfate (Ventolin) 2.5 mg PRN Q4HRS PRN NEB Dyspnea; Start 02/22/18 at 05:00 Diclofenac Sodium (Voltaren) 4 sam PRN QID PRN TP R Knee Pain; Start 02/22/18 at 05:00 Dicyclomine HCl (Bentyl) 10 mg PRN Q8HRS PRN PO Bowel Cramps; Start 02/22/18 at 05:00 Ferrous Sulfate (Feosol) 325 mg DAILY PO Last administered on 03/02/18at 08:17; Start 02/22/18 at 09:00 Gabapentin (Neurontin) 300 mg BID PO Last administered on 03/02/18at 19:24; Start 02/22/18 at 09:00 Hydrocortisone (Proctosol-Hc) 1 sam PRN Q24HRS PRN RC Hemorrhoids; Start at 05:00 Insulin Aspart (NovoLOG) BS 200-2,50= 2 un... TIDWMEALHC SQ ; Start 02/22/18 at 08:00; Stop 02/22/18 at 08:01; Status DC Al Hydroxide/Mg Hydroxide (Mylanta Plus Xs) 15 ml PRN AFTMEALHC PRN PO DYSPEPSIA; Start 02/22/18 at 05:00 Magnesium Hydroxide (Milk Of Magnesia) 2,400 mg PRN QHS PRN PO CONSTIPATION Last administered on 02/26/18at 21:15; Start 02/22/18 at 05:00 Nitroglycerin (Nitrostat) 0.4 mg PRN Q5MIN PRN SL CHEST PAIN; Start 02/22/18 at 05:00 Nystatin (Nystop) 1 sam PRN TID PRN TP REDNESS; Start 02/22/18 at 05:00 Oxycodone/ Acetaminophen (Percocet 10/325) 1 tab BID PO Last administered on at 19:29; Start 02/22/18 at 09:00 Oxycodone/ Acetaminophen (Percocet 10/325) 1 tab PRN Q4HRS PRN PO PAIN Last administered on 02/22/18at 10:09; Start 02/22/18 at 05:00 Amlodipine Besylate (Norvasc) 10 mg DAILY PO Last administered on 03/02/18 08: 17; Start 02/22/18 at 09:00 Ascorbic Acid (Vitamin C) 500 mg DAILY PO Last administered on 03/02/18 08:16 ; Start 02/22/18 at 09:00 Budesonide (Pulmicort) 0.5 mg RTBID NEB Last administered on 03/02/18at 11:08; Start 02/22/18 at 08:00 Celecoxib (CeleBREX) 100 mg BID PO Last administered on 03/02/18at 19:25; Start 02/22/18 at 09:00 Artificial Tears (Artificial Tears) 1 drop TID PRN PRN OU DRY EYE; Start at 05:30 Famotidine (Pepcid) 20 mg DAILY PO Last administered on 03/02/18at 08:17; Start 02/22/18 at 09:00 Guaifenesin (Robitussin Dm) 10 ml PRN Q4HRS PRN PO COUGH; Start 02/22/18 at 05: 30 Hydrocortisone Acetate (Anucort-Hc) 25 mg PRN Q12HR PRN [place] RECTAL PAIN; Start 02/22/18 at 05:30 Levetiracetam (Keppra) 500 mg BID PO Last administered on 03/02/18 19:24; Start 02/22/18 at 09:00 Loperamide HCl (Imodium) 2 mg PRN Q4HRS PRN PO DIARRHEA; Start 02/22/18 at 05: 30 Ondansetron HCl (Zofran Odt) 4 mg PRN Q4HRS PRN PO NAUSEA/VOMITING; Start 02/22 at 05:30 Pioglitazone HCl (Actos) 15 mg DAILY PO Last administered on 03/02/18at 08:16; Start 02/22/18 at 09:00 Multi-Ingredient Ointment (Analgesic [place]) 1 sam PRN QID PRN TP MUSCLE PAIN; Start 02/22/18 at 05:00 Insulin Human Lispro (HumaLOG) TIDWMEALHC SQ Last administered on 03/02/18 18 :17; Start 02/22/18 at 08:00 Mirtazapine (Remeron) 7.5 mg QHS PO Last administered on 03/02/18 19:24; Start 02/22/18 at 21:00 Risperidone (RisperDAL) 0.375 mg BID PO Last administered on 02/26/18at 11:50; Start 02/23/18 at 21:00; Stop 02/26/18 at 19:49; Status DC Olanzapine (ZyPREXA ZYDIS) 5 mg PRN Q2HR PRN PO PSYCHOSIS Last administered on 02/28/18at 15:17; Start 02/23/18 at 19:45 Divalproex Sodium (Depakote Sprinkles) 125 mg TID@0900,1300,1700 PO Last administered on 03/01/18at 17:39; Start 02/26/18 at 09:00; Stop 03/01/18 at 18:29 ; Status DC Risperidone (RisperDAL) 0.5 mg BID PO Last administered on 03/01/18at 10:17; Start 02/26/18 at 21:00; Stop 03/01/18 at 18:29; Status DC Divalproex Sodium (Depakote Sprinkles) 250 mg TID@0900,1300,1700 PO Last administered on 03/02/18at 18:16; Start 03/02/18 at 09:00 Risperidone (RisperDAL) 0.75 mg BID PO Last administered on 03/02/18at 19:24; Start 03/01/18 at 21:00 Active Scripts Active Reported Novolog Flexpen (Insulin Aspart) 100 Unit/1 Ml Insuln.pen 2-10 Units SQ TIDWMEALHC Risperdal (Risperidone) 0.25 Mg Tablet 0.25 Mg BID Cymbalta (Duloxetine Hcl) 60 Mg Capsule.dr 60 Mg PO DAILY Famotidine 20 Mg Tablet 20 Mg PO BID Mag-Al Plus Xs Suspension (Mag Hydrox/Al Hydrox/Simeth) 30 Ml Oral.susp 15 Ml PO PRN AFTMEALHC PRN Celebrex (Celecoxib) 100 Mg Capsule 100 Mg PO BID Vitamin C (Ascorbate Calcium) 500 Mg Tablet 500 Mg PO DAILY Robitussin Cough-Chest Dm Liq (Guaifenesin/Dextromethorphan) 237 Ml Liquid 10 Ml PO PRN Q4HRS PRN Percocet 10-325 Mg Tablet (Oxycodone Hcl/Acetaminophen) 1 Each Tablet 1 Tab PO PRN Q4HRS PRN Percocet 10-325 Mg Tablet (Oxycodone Hcl/Acetaminophen) 1 Each Tablet 1 Tab PO BID Ondansetron Hcl 4 Mg Tablet 4 Mg PO PRN Q4HRS PRN Nystatin 15 Gm Powder 1 Sam TP PRN TID PRN Nitrostat (Nitroglycerin) 0.4 Mg Tab.subl 0.4 Mg SL PRN Q5MIN PRN MDD 3tabs Melatonin 5 Mg Tablet (Melatonin/Pyridoxine) 1 Each Tablet 6 Mg PO QHS Loperamide (Loperamide Hcl) 2 Mg Tablet 2 Mg PO PRN Q4HRS PRN MDD 16mg Keppra (Levetiracetam) 500 Mg Tablet 500 Mg PO BID Ferrous Sulfate 325 Mg Tablet 325 Mg PO DAILY Neurontin (Gabapentin) 300 Mg Capsule 300 Mg PO TID Voltaren (Diclofenac Sodium) 100 Gm Gel..gram. 4 Gm TP PRN QID PRN Budesonide 0.5 Mg/2 Ml Ampul.neb 0.5 Mg NEB PRN BID PRN Dicyclomine Hcl 10 Mg Capsule 10 Mg PO PRN Q8HRS PRN Artificial Tears Eye Drops (Dextran 70/Hypromellose) 15 Ml Drops 1 Drop OU TID PRN Anusol-Hc (Hydrocortisone Acetate) 25 Mg Supp.rect 25 Mg RC PRN Q12HR PRN Anusol-Hc (Hydrocortisone) 30 Gm Cream..g. 1 Sam RC PRN Q24HRS PRN Norvasc (Amlodipine Besylate) 10 Mg Tablet 10 Mg PO DAILY Alprazolam 0.5 Mg Tablet 0.5 Mg PO HS Tylenol (Acetaminophen) 325 Mg Tablet 650 Mg PO PRN Q6HRS PRN Albuterol Sulfate Neb Soln (Albuterol Sulfate) 2.5 Mg/3 Ml Vial.neb 2.5 Mg NEB PRN Q4HRS PRN Milk Of Magnesia (Magnesium Hydroxide) 400 Mg/5 Ml Oral.susp 2,400 Mg PO PRN QHS PRN Actos (Pioglitazone Hcl) 15 Mg Tablet 15 Mg PO DAILYWBKFT I have reviewed the current psychotropics carefully including drug interactions. Risk benefit ratio favors no change other than as noted in my dictated progress note. Diagnosis: Problems: (1) Anxiety disorder (2) Impulse control disorder (3) Major depressive disorder, recurrent episode (4) Mild cognitive impairment BEA SAWANT MD March 02, 2018 20:01
--- NOTE | 2018-03-02 20:35 | PDOC ---
Exam Note: Neal Note: Please also refer to the separate dictated note~for this date of service dictated separately.~Patient seen individually. Discussed the patient with Nursing staff reviewed the chart.~Reviewed interim history and current functioning. Reviewed vital signs,~Labs/ Radiology~and current medications noted below. Continue current treatment with the changes noted in the dictated addendum note Assessment: Vital Signs: Vital Signs Date Time Temp Pulse Resp B/P (MAP) Pulse Ox O2 Delivery O2 Flow Rate FiO2 03/02/18 16:45 97.6 94 18 128/61 (83) 94 03/02/18 11:09 Room Air I&O Intake and Output 03/02/18 07:00 Intake Total 1200 ml Balance 1200 ml Intake Oral 1200 ml Labs: Laboratory Tests Test 03/02/18 07:42 03/02/18 11:11 03/02/18 16:22 03/02/18 19:21 Glucose (Fingerstick) 129 mg/dL (70-99) H 265 mg/dL (70-99) H 288 mg/dL (70-99) H 358 mg/dL (70-99) H Current Medications: Meds: Current Medications Acetaminophen (Tylenol) 1,000 mg 1X ONCE PO Last administered on 02/22/18at 03: 05; Start 02/22/18 at 03:30; Stop 02/22/18 at 03:31; Status DC Alprazolam (Xanax) 0.5 mg QHS PO Last administered on 03/02/18at 19:29; Start at 21:00 Duloxetine HCl (Cymbalta) 60 mg DAILY PO Last administered on 03/02/18at 08:16; Start 02/22/18 at 09:00 Melatonin 6 mg QHS PO Last administered on 03/02/18at 19:29; Start 02/22/18 at 21:00 Risperidone (RisperDAL) 0.25 mg BID PO Last administered on 02/23/18at 08:51; Start 02/22/18 at 09:00; Stop 02/23/18 at 13:23; Status DC Acetaminophen (Tylenol) 650 mg PRN Q6HRS PRN PO PAIN / TEMP; Start 02/22/18 at 05:00 Albuterol Sulfate (Ventolin) 2.5 mg PRN Q4HRS PRN NEB Dyspnea; Start 02/22/18 at 05:00 Diclofenac Sodium (Voltaren) 4 sam PRN QID PRN TP R Knee Pain; Start 02/22/18 at 05:00 Dicyclomine HCl (Bentyl) 10 mg PRN Q8HRS PRN PO Bowel Cramps; Start 02/22/18 at 05:00 Ferrous Sulfate (Feosol) 325 mg DAILY PO Last administered on 03/02/18at 08:17; Start 02/22/18 at 09:00 Gabapentin (Neurontin) 300 mg BID PO Last administered on 03/02/18at 19:24; Start 02/22/18 at 09:00 Hydrocortisone (Proctosol-Hc) 1 sam PRN Q24HRS PRN RC Hemorrhoids; Start at 05:00 Insulin Aspart (NovoLOG) BS 200-2,50= 2 un... TIDWMEALHC SQ ; Start 02/22/18 at 08:00; Stop 02/22/18 at 08:01; Status DC Al Hydroxide/Mg Hydroxide (Mylanta Plus Xs) 15 ml PRN AFTMEALHC PRN PO DYSPEPSIA; Start 02/22/18 at 05:00 Magnesium Hydroxide (Milk Of Magnesia) 2,400 mg PRN QHS PRN PO CONSTIPATION Last administered on 02/26/18at 21:15; Start 02/22/18 at 05:00 Nitroglycerin (Nitrostat) 0.4 mg PRN Q5MIN PRN SL CHEST PAIN; Start 02/22/18 at 05:00 Nystatin (Nystop) 1 sam PRN TID PRN TP REDNESS; Start 02/22/18 at 05:00 Oxycodone/ Acetaminophen (Percocet 10/325) 1 tab BID PO Last administered on at 19:29; Start 02/22/18 at 09:00 Oxycodone/ Acetaminophen (Percocet 10/325) 1 tab PRN Q4HRS PRN PO PAIN Last administered on 02/22/18at 10:09; Start 02/22/18 at 05:00 Amlodipine Besylate (Norvasc) 10 mg DAILY PO Last administered on 03/02/18at 08: 17; Start 02/22/18 at 09:00 Ascorbic Acid (Vitamin C) 500 mg DAILY PO Last administered on 03/02/18 08:16 ; Start 02/22/18 at 09:00 Budesonide (Pulmicort) 0.5 mg RTBID NEB Last administered on 03/02/18 11:08; Start 02/22/18 at 08:00 Celecoxib (CeleBREX) 100 mg BID PO Last administered on 03/02/18 19:25; Start 02/22/18 at 09:00 Artificial Tears (Artificial Tears) 1 drop TID PRN PRN OU DRY EYE; Start at 05:30 Famotidine (Pepcid) 20 mg DAILY PO Last administered on 03/02/18 08:17; Start 02/22/18 at 09:00 Guaifenesin (Robitussin Dm) 10 ml PRN Q4HRS PRN PO COUGH; Start 02/22/18 at 05: 30 Hydrocortisone Acetate (Anucort-Hc) 25 mg PRN Q12HR PRN [place] RECTAL PAIN; Start 02/22/18 at 05:30 Levetiracetam (Keppra) 500 mg BID PO Last administered on 03/02/18 19:24; Start 02/22/18 at 09:00 Loperamide HCl (Imodium) 2 mg PRN Q4HRS PRN PO DIARRHEA; Start 02/22/18 at 05: 30 Ondansetron HCl (Zofran Odt) 4 mg PRN Q4HRS PRN PO NAUSEA/VOMITING; Start 02/22 at 05:30 Pioglitazone HCl (Actos) 15 mg DAILY PO Last administered on 03/02/18 08:16; Start 02/22/18 at 09:00 Multi-Ingredient Ointment (Analgesic [place]) 1 sam PRN QID PRN TP MUSCLE PAIN; Start 02/22/18 at 05:00 Insulin Human Lispro (HumaLOG) TIDWMEALHC SQ Last administered on 03/02/18 18 :17; Start 02/22/18 at 08:00 Mirtazapine (Remeron) 7.5 mg QHS PO Last administered on 03/02/18 19:24; Start 02/22/18 at 21:00 Risperidone (RisperDAL) 0.375 mg BID PO Last administered on 5/19/18at 11:50; Start 02/23/18 at 21:00; Stop 02/26/18 at 19:49; Status DC Olanzapine (ZyPREXA ZYDIS) 5 mg PRN Q2HR PRN PO PSYCHOSIS Last administered on 02/28/18at 15:17; Start 02/23/18 at 19:45 Divalproex Sodium (Depakote Sprinkles) 125 mg TID@0900,1300,1700 PO Last administered on 03/01/18at 17:39; Start 02/26/18 at 09:00; Stop 03/01/18 at 18:29 ; Status DC Risperidone (RisperDAL) 0.5 mg BID PO Last administered on 03/01/18at 10:17; Start 02/26/18 at 21:00; Stop 03/01/18 at 18:29; Status DC Divalproex Sodium (Depakote Sprinkles) 250 mg TID@0900,1300,1700 PO Last administered on 03/02/18at 18:16; Start 03/02/18 at 09:00 Risperidone (RisperDAL) 0.75 mg BID PO Last administered on 03/02/18at 19:24; Start 03/01/18 at 21:00 Active Scripts Active Reported Novolog Flexpen (Insulin Aspart) 100 Unit/1 Ml Insuln.pen 2-10 Units SQ TIDWMEALHC Risperdal (Risperidone) 0.25 Mg Tablet 0.25 Mg BID Cymbalta (Duloxetine Hcl) 60 Mg Capsule.dr 60 Mg PO DAILY Famotidine 20 Mg Tablet 20 Mg PO BID Mag-Al Plus Xs Suspension (Mag Hydrox/Al Hydrox/Simeth) 30 Ml Oral.susp 15 Ml PO PRN AFTMEALHC PRN Celebrex (Celecoxib) 100 Mg Capsule 100 Mg PO BID Vitamin C (Ascorbate Calcium) 500 Mg Tablet 500 Mg PO DAILY Robitussin Cough-Chest Dm Liq (Guaifenesin/Dextromethorphan) 237 Ml Liquid 10 Ml PO PRN Q4HRS PRN Percocet 10-325 Mg Tablet (Oxycodone Hcl/Acetaminophen) 1 Each Tablet 1 Tab PO PRN Q4HRS PRN Percocet 10-325 Mg Tablet (Oxycodone Hcl/Acetaminophen) 1 Each Tablet 1 Tab PO BID Ondansetron Hcl 4 Mg Tablet 4 Mg PO PRN Q4HRS PRN Nystatin 15 Gm Powder 1 Sam TP PRN TID PRN Nitrostat (Nitroglycerin) 0.4 Mg Tab.subl 0.4 Mg SL PRN Q5MIN PRN MDD 3tabs Melatonin 5 Mg Tablet (Melatonin/Pyridoxine) 1 Each Tablet 6 Mg PO QHS Loperamide (Loperamide Hcl) 2 Mg Tablet 2 Mg PO PRN Q4HRS PRN MDD 16mg Keppra (Levetiracetam) 500 Mg Tablet 500 Mg PO BID Ferrous Sulfate 325 Mg Tablet 325 Mg PO DAILY Neurontin (Gabapentin) 300 Mg Capsule 300 Mg PO TID Voltaren (Diclofenac Sodium) 100 Gm Gel..gram. 4 Gm TP PRN QID PRN Budesonide 0.5 Mg/2 Ml Ampul.neb 0.5 Mg NEB PRN BID PRN Dicyclomine Hcl 10 Mg Capsule 10 Mg PO PRN Q8HRS PRN Artificial Tears Eye Drops (Dextran 70/Hypromellose) 15 Ml Drops 1 Drop OU TID PRN Anusol-Hc (Hydrocortisone Acetate) 25 Mg Supp.rect 25 Mg RC PRN Q12HR PRN Anusol-Hc (Hydrocortisone) 30 Gm Cream..g. 1 Sam RC PRN Q24HRS PRN Norvasc (Amlodipine Besylate) 10 Mg Tablet 10 Mg PO DAILY Alprazolam 0.5 Mg Tablet 0.5 Mg PO HS Tylenol (Acetaminophen) 325 Mg Tablet 650 Mg PO PRN Q6HRS PRN Albuterol Sulfate Neb Soln (Albuterol Sulfate) 2.5 Mg/3 Ml Vial.neb 2.5 Mg NEB PRN Q4HRS PRN Milk Of Magnesia (Magnesium Hydroxide) 400 Mg/5 Ml Oral.susp 2,400 Mg PO PRN QHS PRN Actos (Pioglitazone Hcl) 15 Mg Tablet 15 Mg PO [id number] I have reviewed the current psychotropics carefully including drug interactions. Risk benefit ratio favors no change other than as noted in my dictated progress note. Diagnosis: Problems: (1) Anxiety disorder (2) Impulse control disorder (3) Major depressive disorder, recurrent episode (4) Mild cognitive impairment BEA SAWANT MD March 02, 2018 20:35
[2018-03-03 05:56] VITALS: BP 123/59
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
[2018-03-03] MEDS: risperiDONE 0.25 MG TABLET. PO SCH ×2 (08:16→20:37)
[2018-03-03] MEDS: levETIRAcetam 500 MG TABLET PO SCH ×2 (08:16→20:36)
[2018-03-03] MEDS: FAMOTIDINE 20 MG TABLET PO SCH (08:17)
[2018-03-03] MEDS: amLODIPine BESYLATE 10 MG TABLET PO SCH (08:17)
[2018-03-03] MEDS: ASCORBIC ACID 500 MG TABLET PO SCH (08:17)
[2018-03-03] MEDS: GABAPENTIN 300 MG CAPSULE. PO SCH ×2 (08:17→20:36)
[2018-03-03] MEDS: FERROUS SULFATE 325 MG TABLET. PO SCH (08:18)
[2018-03-03] MEDS: DIVALPROEX 125 MG CAP.SPRINK PO SCH ×3 (08:18→17:39)
[2018-03-03] MEDS: PIOGLITAZONE 15 MG TABLET. PO SCH (08:18)
[2018-03-03] MEDS: DULoxetine HCL 60 MG CAPSULE.DR PO SCH (08:18)
[2018-03-03] MEDS: CELECOXIB 100 MG CAPSULE PO SCH ×2 (08:18→20:36)
[2018-03-03] MEDS: INSULIN LISPRO 300 UNITS/3 ML INSULN.PEN. SQ SCH ×4 (08:22→20:41)
[2018-03-03] MEDS: BUDESONIDE 0.5 MG/2 ML NEBU NEB SCH ×2 (10:00→22:15)
[2018-03-03] MEDS: oxyCODONE/APAP 10/325 1 TAB TABLET PO SCH ×2 (10:12→20:39)
[2018-03-03 16:09] VITALS: BP 157/74
[2018-03-03] MEDS: MIRTAZAPINE 7.5 MG TABLET. PO SCH (20:36)
[2018-03-03] MEDS: MELATONIN 3 MG TABLET PO SCH (20:36)
[2018-03-03] MEDS: ALPRAZolam 0.5 MG TABLET PO SCH (20:39)
--- NOTE | 2018-03-03 20:51 | PDOC ---
Exam Note: Neal Note: Please also refer to the separate dictated note~for this date of service dictated separately.~Patient seen individually. Discussed the patient with Nursing staff reviewed the chart.~Reviewed interim history and current functioning. Reviewed vital signs,~Labs/ Radiology~and current medications noted below. Continue current treatment with the changes noted in the dictated addendum note Assessment: Vital Signs: Vital Signs Date Time Temp Pulse Resp B/P (MAP) Pulse Ox O2 Delivery O2 Flow Rate FiO2 03/03/18 16:09 97.8 93 24 157/74 (101) 95 03/03/18 10:00 Room Air I&O Intake and Output 03/03/18 07:00 Intake Total 920 ml Balance 920 ml Intake Oral 920 ml Labs: Laboratory Tests Test 03/03/18 07:37 03/03/18 11:52 03/03/18 17:15 03/03/18 19:32 Glucose (Fingerstick) 191 mg/dL (70-99) H 111 mg/dL (70-99) H 148 mg/dL (70-99) H 263 mg/dL (70-99) H Current Medications: Meds: Current Medications Acetaminophen (Tylenol) 1,000 mg 1X ONCE PO Last administered on 02/22/18at 03: 05; Start 02/22/18 at 03:30; Stop 02/22/18 at 03:31; Status DC Alprazolam (Xanax) 0.5 mg QHS PO Last administered on 03/03/18at 20:39; Start at 21:00 Duloxetine HCl (Cymbalta) 60 mg DAILY PO Last administered on 03/03/18at 08:18; Start 02/22/18 at 09:00 Melatonin 6 mg QHS PO Last administered on 03/03/18at 20:36; Start 02/22/18 at 21:00 Risperidone (RisperDAL) 0.25 mg BID PO Last administered on 02/23/18at 08:51; Start 02/22/18 at 09:00; Stop 02/23/18 at 13:23; Status DC Acetaminophen (Tylenol) 650 mg PRN Q6HRS PRN PO PAIN / TEMP; Start 02/22/18 at 05:00 Albuterol Sulfate (Ventolin) 2.5 mg PRN Q4HRS PRN NEB Dyspnea; Start 02/22/18 at 05:00 Diclofenac Sodium (Voltaren) 4 sam PRN QID PRN TP R Knee Pain; Start 02/22/18 at 05:00 Dicyclomine HCl (Bentyl) 10 mg PRN Q8HRS PRN PO Bowel Cramps; Start 02/22/18 at 05:00 Ferrous Sulfate (Feosol) 325 mg DAILY PO Last administered on 03/03/18at 08:18; Start 02/22/18 at 09:00 Gabapentin (Neurontin) 300 mg BID PO Last administered on 03/03/18at 20:36; Start 02/22/18 at 09:00 Hydrocortisone (Proctosol-Hc) 1 sam PRN Q24HRS PRN RC Hemorrhoids; Start at 05:00 Insulin Aspart (NovoLOG) BS 200-2,50= 2 un... TIDWMEALHC SQ ; Start 02/22/18 at 08:00; Stop 02/22/18 at 08:01; Status DC Al Hydroxide/Mg Hydroxide (Mylanta Plus Xs) 15 ml PRN AFTMEALHC PRN PO DYSPEPSIA; Start 02/22/18 at 05:00 Magnesium Hydroxide (Milk Of Magnesia) 2,400 mg PRN QHS PRN PO CONSTIPATION Last administered on 02/26/18at 21:15; Start 02/22/18 at 05:00 Nitroglycerin (Nitrostat) 0.4 mg PRN Q5MIN PRN SL CHEST PAIN; Start 02/22/18 at 05:00 Nystatin (Nystop) 1 sam PRN TID PRN TP REDNESS; Start 02/22/18 at 05:00 Oxycodone/ Acetaminophen (Percocet 10/325) 1 tab BID PO Last administered on at 20:39; Start 02/22/18 at 09:00 Oxycodone/ Acetaminophen (Percocet 10/325) 1 tab PRN Q4HRS PRN PO PAIN Last administered on 02/22/18at 10:09; Start 02/22/18 at 05:00 Amlodipine Besylate (Norvasc) 10 mg DAILY PO Last administered on 03/03/18at 08: 17; Start 02/22/18 at 09:00 Ascorbic Acid (Vitamin C) 500 mg DAILY PO Last administered on 03/03/18 08:17 ; Start 02/22/18 at 09:00 Budesonide (Pulmicort) 0.5 mg RTBID NEB Last administered on 03/03/18 10:00; Start 02/22/18 at 08:00 Celecoxib (CeleBREX) 100 mg BID PO Last administered on 03/03/18 20:36; Start 02/22/18 at 09:00 Artificial Tears (Artificial Tears) 1 drop TID PRN PRN OU DRY EYE; Start at 05:30 Famotidine (Pepcid) 20 mg DAILY PO Last administered on 03/03/18 08:17; Start 02/22/18 at 09:00 Guaifenesin (Robitussin Dm) 10 ml PRN Q4HRS PRN PO COUGH; Start 02/22/18 at 05: 30 Hydrocortisone Acetate (Anucort-Hc) 25 mg PRN Q12HR PRN [place] RECTAL PAIN; Start 02/22/18 at 05:30 Levetiracetam (Keppra) 500 mg BID PO Last administered on 03/03/18 20:36; Start 02/22/18 at 09:00 Loperamide HCl (Imodium) 2 mg PRN Q4HRS PRN PO DIARRHEA; Start 02/22/18 at 05: 30 Ondansetron HCl (Zofran Odt) 4 mg PRN Q4HRS PRN PO NAUSEA/VOMITING; Start 02/22 at 05:30 Pioglitazone HCl (Actos) 15 mg DAILY PO Last administered on 03/03/18at 08:18; Start 02/22/18 at 09:00 Multi-Ingredient Ointment (Analgesic [place]) 1 sam PRN QID PRN TP MUSCLE PAIN; Start 02/22/18 at 05:00 Insulin Human Lispro (HumaLOG) TIDWMEALHC SQ Last administered on 03/03/18 20 :41; Start 02/22/18 at 08:00 Mirtazapine (Remeron) 7.5 mg QHS PO Last administered on 03/03/18 20:36; Start 02/22/18 at 21:00 Risperidone (RisperDAL) 0.375 mg BID PO Last administered on 02/26/18at 11:50; Start 02/23/18 at 21:00; Stop 02/26/18 at 19:49; Status DC Olanzapine (ZyPREXA ZYDIS) 5 mg PRN Q2HR PRN PO PSYCHOSIS Last administered on 02/28/18at 15:17; Start 02/23/18 at 19:45 Divalproex Sodium (Depakote Sprinkles) 125 mg TID@0900,1300,1700 PO Last administered on 03/01/18at 17:39; Start 02/26/18 at 09:00; Stop 03/01/18 at 18:29 ; Status DC Risperidone (RisperDAL) 0.5 mg BID PO Last administered on 03/01/18at 10:17; Start 02/26/18 at 21:00; Stop 03/01/18 at 18:29; Status DC Divalproex Sodium (Depakote Sprinkles) 250 mg TID@0900,1300,1700 PO Last administered on 03/03/18at 17:39; Start 03/02/18 at 09:00 Risperidone (RisperDAL) 0.75 mg BID PO Last administered on 03/03/18at 20:37; Start 03/01/18 at 21:00 Active Scripts Active Reported Novolog Flexpen (Insulin Aspart) 100 Unit/1 Ml Insuln.pen 2-10 Units SQ TIDWMEALHC Risperdal (Risperidone) 0.25 Mg Tablet 0.25 Mg BID Cymbalta (Duloxetine Hcl) 60 Mg Capsule.dr 60 Mg PO DAILY Famotidine 20 Mg Tablet 20 Mg PO BID Mag-Al Plus Xs Suspension (Mag Hydrox/Al Hydrox/Simeth) 30 Ml Oral.susp 15 Ml PO PRN AFTMEALHC PRN Celebrex (Celecoxib) 100 Mg Capsule 100 Mg PO BID Vitamin C (Ascorbate Calcium) 500 Mg Tablet 500 Mg PO DAILY Robitussin Cough-Chest Dm Liq (Guaifenesin/Dextromethorphan) 237 Ml Liquid 10 Ml PO PRN Q4HRS PRN Percocet 10-325 Mg Tablet (Oxycodone Hcl/Acetaminophen) 1 Each Tablet 1 Tab PO PRN Q4HRS PRN Percocet 10-325 Mg Tablet (Oxycodone Hcl/Acetaminophen) 1 Each Tablet 1 Tab PO BID Ondansetron Hcl 4 Mg Tablet 4 Mg PO PRN Q4HRS PRN Nystatin 15 Gm Powder 1 Sam TP PRN TID PRN Nitrostat (Nitroglycerin) 0.4 Mg Tab.subl 0.4 Mg SL PRN Q5MIN PRN MDD 3tabs Melatonin 5 Mg Tablet (Melatonin/Pyridoxine) 1 Each Tablet 6 Mg PO QHS Loperamide (Loperamide Hcl) 2 Mg Tablet 2 Mg PO PRN Q4HRS PRN MDD 16mg Keppra (Levetiracetam) 500 Mg Tablet 500 Mg PO BID Ferrous Sulfate 325 Mg Tablet 325 Mg PO DAILY Neurontin (Gabapentin) 300 Mg Capsule 300 Mg PO TID Voltaren (Diclofenac Sodium) 100 Gm Gel..gram. 4 Gm TP PRN QID PRN Budesonide 0.5 Mg/2 Ml Ampul.neb 0.5 Mg NEB PRN BID PRN Dicyclomine Hcl 10 Mg Capsule 10 Mg PO PRN Q8HRS PRN Artificial Tears Eye Drops (Dextran 70/Hypromellose) 15 Ml Drops 1 Drop OU TID PRN Anusol-Hc (Hydrocortisone Acetate) 25 Mg Supp.rect 25 Mg RC PRN Q12HR PRN Anusol-Hc (Hydrocortisone) 30 Gm Cream..g. 1 Sam RC PRN Q24HRS PRN Norvasc (Amlodipine Besylate) 10 Mg Tablet 10 Mg PO DAILY Alprazolam 0.5 Mg Tablet 0.5 Mg PO HS Tylenol (Acetaminophen) 325 Mg Tablet 650 Mg PO PRN Q6HRS PRN Albuterol Sulfate Neb Soln (Albuterol Sulfate) 2.5 Mg/3 Ml Vial.neb 2.5 Mg NEB PRN Q4HRS PRN Milk Of Magnesia (Magnesium Hydroxide) 400 Mg/5 Ml Oral.susp 2,400 Mg PO PRN QHS PRN Actos (Pioglitazone Hcl) 15 Mg Tablet 15 Mg PO [id number] I have reviewed the current psychotropics carefully including drug interactions. Risk benefit ratio favors no change other than as noted in my dictated progress note. Diagnosis: Problems: (1) Anxiety disorder (2) Impulse control disorder (3) Major depressive disorder, recurrent episode (4) Mild cognitive impairment BEA SAWANT MD March 03, 2018 20:51
[2018-03-04 05:54] VITALS: BP 117/56
[2018-03-04] MEDS: FAMOTIDINE 20 MG TABLET PO SCH (07:57)
[2018-03-04] MEDS: DULoxetine HCL 60 MG CAPSULE.DR PO SCH (07:57)
[2018-03-04] MEDS: GABAPENTIN 300 MG CAPSULE. PO SCH ×2 (07:58→20:13)
[2018-03-04] MEDS: DIVALPROEX 125 MG CAP.SPRINK PO SCH ×3 (07:58→17:59)
[2018-03-04] MEDS: FERROUS SULFATE 325 MG TABLET. PO SCH (07:58)
[2018-03-04] MEDS: PIOGLITAZONE 15 MG TABLET. PO SCH (07:58)
[2018-03-04] MEDS: ASCORBIC ACID 500 MG TABLET PO SCH (07:58)
[2018-03-04] MEDS: CELECOXIB 100 MG CAPSULE PO SCH (07:58)
[2018-03-04] MEDS: risperiDONE 0.25 MG TABLET. PO SCH ×2 (07:58→20:13)
[2018-03-04] MEDS: levETIRAcetam 500 MG TABLET PO SCH ×2 (07:58→20:14)
[2018-03-04] MEDS: amLODIPine BESYLATE 10 MG TABLET PO SCH (07:59)
[2018-03-04] MEDS: oxyCODONE/APAP 10/325 1 TAB TABLET PO SCH ×2 (08:00→20:14)
[2018-03-04] MEDS: INSULIN LISPRO 300 UNITS/3 ML INSULN.PEN. SQ SCH ×4 (08:00→21:07)
[2018-03-04 09:35] LABS: BASO % 0 % (0-3); EOS # 0.1 x10^3/uL (0.0-0.7); EOS % 2 % (0-3); HEMATOCRIT 27.2 % (36.0-47.0); HEMOGLOBIN 8.9 g/dL (12.0-15.5); LYMPH # 1.9 x10^3/uL (1.0-4.8); LYMPH % 31 % (24-48); MEAN CORPUSCULAR HEMOGLOBIN 28 pg (25-35); MEAN CORPUSCULAR HGB CONC 33 g/dL (31-37); MEAN CORPUSCULAR VOLUME 84 fL (79-100); MONO # 0.6 x10^3/uL (0.0-1.1); MONO % 9 % (0-9); NEUT # 3.5 x10^3uL (1.8-7.7); NEUT % 58 % (31-73); PLATELET COUNT 210 x10^3/uL (140-400); RED BLOOD COUNT 3.24 x10^6/uL (3.50-5.40); RED CELL DISTRIBUTION WIDTH 17.3 % (11.5-14.5); WHITE BLOOD COUNT 6.1 x10^3/uL (4.0-11.0)
[2018-03-04 09:42] LABS: ALBUMIN 2.9 g/dL (3.4-5.0); ALBUMIN/GLOBULIN RATIO 0.8 (1.0-1.7); ALK PHOS 85 U/L (46-116); ALT (SGPT) 23 U/L (14-59); ANION GAP 6 (6-14); AST (SGOT) 12 U/L (15-37); BLOOD UREA NITROGEN 36 mg/dL (7-20); BUN/CREATININE RATIO 28 (6-20); CALCIUM 8.7 mg/dL (8.5-10.1); CARBON DIOXIDE 30 mmol/L (21-32); CHLORIDE 111 mmol/L (98-107); CREATININE 1.3 mg/dL (0.6-1.0); GFR 48.7; GLUCOSE 157 mg/dL (70-99); POTASSIUM 4.8 mmol/L (3.5-5.1); SODIUM 147 mmol/L (136-145); TOTAL BILIRUBIN 0.2 mg/dL (0.2-1.0); TOTAL PROTEIN 6.7 g/dL (6.4-8.2)
[2018-03-04 09:46] LABS: VAL ACID 17 mcg/mL (50-100)
[2018-03-04] MEDS: BUDESONIDE 0.5 MG/2 ML NEBU NEB SCH ×2 (10:33→20:00)
[2018-03-04 16:24] VITALS: BP 118/66
[2018-03-04 16:55] VITALS: BP 161/78
--- NOTE | 2018-03-04 19:55 | PDOC ---
Exam Note: Neal Note: Please also refer to the separate dictated note~for this date of service dictated separately.~Patient seen individually. Discussed the patient with Nursing staff reviewed the chart.~Reviewed interim history and current functioning. Reviewed vital signs,~Labs/ Radiology~and current medications noted below. Continue current treatment with the changes noted in the dictated addendum note Assessment: Vital Signs: Vital Signs Date Time Temp Pulse Resp B/P (MAP) Pulse Ox O2 Delivery O2 Flow Rate FiO2 03/04/18 16:55 97.4 90 18 161/78 (105) 96 Room Air I&O Intake and Output 03/04/18 07:00 Intake Total 800 ml Balance 800 ml Intake Oral 800 ml Labs: Laboratory Tests Test 03/04/18 08:13 03/04/18 09:12 03/04/18 11:40 03/04/18 16:45 Glucose (Fingerstick) 173 mg/dL (70-99) H 127 mg/dL (70-99) H 306 mg/dL (70-99) H White Blood Count 6.1 x10^3/uL (4.0-11.0) Red Blood Count 3.24 x10^6/uL (3.50-5.40) L Hemoglobin 8.9 g/dL (12.0-15.5) L Hematocrit 27.2 % (36.0-47.0) L Mean Corpuscular Volume 84 fL (79-100) Mean Corpuscular Hemoglobin 28 pg (25-35) Mean Corpuscular Hemoglobin Concent 33 g/dL (31-37) Red Cell Distribution Width 17.3 % (11.5-14.5) H Platelet Count 210 x10^3/uL (140-400) Neutrophils (%) (Auto) 58 % (31-73) Lymphocytes (%) (Auto) 31 % (24-48) Monocytes (%) (Auto) 9 % (0-9) Eosinophils (%) (Auto) 2 % (0-3) Basophils (%) (Auto) 0 % (0-3) Neutrophils # (Auto) 3.5 x10^3uL (1.8-7.7) Lymphocytes # (Auto) 1.9 x10^3/uL (1.0-4.8) Monocytes # (Auto) 0.6 x10^3/uL (0.0-1.1) Eosinophils # (Auto) 0.1 x10^3/uL (0.0-0.7) Basophils # (Auto) 0.0 x10^3/uL (0.0-0.2) Sodium Level 147 mmol/L (136-145) H Potassium Level 4.8 mmol/L (3.5-5.1) Chloride Level 111 mmol/L (98-107) H Carbon Dioxide Level 30 mmol/L (21-32) Anion Gap 6 (6-14) Blood Urea Nitrogen 36 mg/dL (7-20) H Creatinine 1.3 mg/dL (0.6-1.0) H Estimated GFR (Cockcroft-Gault) 48.7 BUN/Creatinine Ratio 28 (6-20) H Glucose Level 157 mg/dL (70-99) H Calcium Level 8.7 mg/dL (8.5-10.1) Total Bilirubin 0.2 mg/dL (0.2-1.0) Aspartate Amino Transferase (AST) 12 U/L (15-37) L Alanine Aminotransferase (ALT) 23 U/L (14-59) Alkaline Phosphatase 85 U/L (46-116) Total Protein 6.7 g/dL (6.4-8.2) Albumin 2.9 g/dL (3.4-5.0) L Albumin/Globulin Ratio 0.8 (1.0-1.7) L Valproic Acid Level 17 mcg/mL (50-100) L Valproic Acid Last Dose Date 03/03/2018 Valproic Acid Last Dose Time 2100 Test 03/04/18 19:18 Glucose (Fingerstick) 328 mg/dL (70-99) H Current Medications: Meds: Current Medications Acetaminophen (Tylenol) 1,000 mg 1X ONCE PO Last administered on 02/22/18at 03: 05; Start 02/22/18 at 03:30; Stop 02/22/18 at 03:31; Status DC Alprazolam (Xanax) 0.5 mg QHS PO Last administered on 03/03/18at 20:39; Start at 21:00 Duloxetine HCl (Cymbalta) 60 mg DAILY PO Last administered on 03/04/18at 07:57; Start 02/22/18 at 09:00 Melatonin 6 mg QHS PO Last administered on 03/03/18at 20:36; Start 02/22/18 at 21:00 Risperidone (RisperDAL) 0.25 mg BID PO Last administered on 02/23/18at 08:51; Start 02/22/18 at 09:00; Stop 02/23/18 at 13:23; Status DC Acetaminophen (Tylenol) 650 mg PRN Q6HRS PRN PO PAIN / TEMP; Start 02/22/18 at 05:00 Albuterol Sulfate (Ventolin) 2.5 mg PRN Q4HRS PRN NEB Dyspnea; Start 02/22/18 at 05:00 Diclofenac Sodium (Voltaren) 4 sam PRN QID PRN TP R Knee Pain; Start 02/22/18 at 05:00 Dicyclomine HCl (Bentyl) 10 mg PRN Q8HRS PRN PO Bowel Cramps; Start 02/22/18 at 05:00 Ferrous Sulfate (Feosol) 325 mg DAILY PO Last administered on 03/04/18at 07:58; Start 02/22/18 at 09:00 Gabapentin (Neurontin) 300 mg BID PO Last administered on 03/04/18at 07:58; Start 02/22/18 at 09:00 Hydrocortisone (Proctosol-Hc) 1 sam PRN Q24HRS PRN RC Hemorrhoids; Start at 05:00 Insulin Aspart (NovoLOG) BS 200-2,50= 2 un... TIDWMEALHC SQ ; Start 02/22/18 at 08:00; Stop 02/22/18 at 08:01; Status DC Al Hydroxide/Mg Hydroxide (Mylanta Plus Xs) 15 ml PRN AFTMEALHC PRN PO DYSPEPSIA; Start 02/22/18 at 05:00 Magnesium Hydroxide (Milk Of Magnesia) 2,400 mg PRN QHS PRN PO CONSTIPATION Last administered on 02/26/18at 21:15; Start 02/22/18 at 05:00 Nitroglycerin (Nitrostat) 0.4 mg PRN Q5MIN PRN SL CHEST PAIN; Start 02/22/18 at 05:00 Nystatin (Nystop) 1 sam PRN TID PRN TP REDNESS; Start 02/22/18 at 05:00 Oxycodone/ Acetaminophen (Percocet 10/325) 1 tab BID PO Last administered on 08:00; Start 02/22/18 at 09:00 Oxycodone/ Acetaminophen (Percocet 10/325) 1 tab PRN Q4HRS PRN PO PAIN Last administered on 02/22/18 10:09; Start 02/22/18 at 05:00 Amlodipine Besylate (Norvasc) 10 mg DAILY PO Last administered on 03/03/18 08: 17; Start 02/22/18 at 09:00 Ascorbic Acid (Vitamin C) 500 mg DAILY PO Last administered on 03/04/18 07:58 ; Start 02/22/18 at 09:00 Budesonide (Pulmicort) 0.5 mg RTBID NEB Last administered on 03/04/18 10:33; Start 02/22/18 at 08:00 Celecoxib (CeleBREX) 100 mg BID PO Last administered on 03/04/18 07:58; Start 02/22/18 at 09:00; Stop 03/04/18 at 17:39; Status DC Artificial Tears (Artificial Tears) 1 drop TID PRN PRN OU DRY EYE; Start at 05:30 Famotidine (Pepcid) 20 mg DAILY PO Last administered on 03/04/18 07:57; Start 02/22/18 at 09:00 Guaifenesin (Robitussin Dm) 10 ml PRN Q4HRS PRN PO COUGH; Start 02/22/18 at 05: 30 Hydrocortisone Acetate (Anucort-Hc) 25 mg PRN Q12HR PRN DE RECTAL PAIN; Start 02/22/18 at 05:30 Levetiracetam (Keppra) 500 mg BID PO Last administered on 03/04/18 07:58; Start 02/22/18 at 09:00 Loperamide HCl (Imodium) 2 mg PRN Q4HRS PRN PO DIARRHEA; Start 02/22/18 at 05: 30 Ondansetron HCl (Zofran Odt) 4 mg PRN Q4HRS PRN PO NAUSEA/VOMITING; Start 02/22 at 05:30 Pioglitazone HCl (Actos) 15 mg DAILY PO Last administered on 03/04/18 07:58; Start 02/22/18 at 09:00 Multi-Ingredient Ointment (Analgesic [place]) 1 sam PRN QID PRN TP MUSCLE PAIN; Start 02/22/18 at 05:00 Insulin Human Lispro (HumaLOG) TIDWMEALHC SQ Last administered on 03/04/18at 17 :00; Start 02/22/18 at 08:00 Mirtazapine (Remeron) 7.5 mg QHS PO Last administered on 03/03/18at 20:36; Start 02/22/18 at 21:00 Risperidone (RisperDAL) 0.375 mg BID PO Last administered on 02/26/18at 11:50; Start 02/23/18 at 21:00; Stop 02/26/18 at 19:49; Status DC Olanzapine (ZyPREXA ZYDIS) 5 mg PRN Q2HR PRN PO PSYCHOSIS Last administered on 02/28/18at 15:17; Start 02/23/18 at 19:45 Divalproex Sodium (Depakote Sprinkles) 125 mg TID@0900,1300,1700 PO Last administered on 03/01/18at 17:39; Start 02/26/18 at 09:00; Stop 03/01/18 at 18:29 ; Status DC Risperidone (RisperDAL) 0.5 mg BID PO Last administered on 03/01/18at 10:17; Start 02/26/18 at 21:00; Stop 03/01/18 at 18:29; Status DC Divalproex Sodium (Depakote Sprinkles) 250 mg TID@0900,1300,1700 PO Last administered on 03/04/18at 17:59; Start 03/02/18 at 09:00; Stop 03/04/18 at 19:22 ; Status DC Risperidone (RisperDAL) 0.75 mg BID PO Last administered on 03/04/18at 07:58; Start 03/01/18 at 21:00 Divalproex Sodium (Depakote Er) 1,000 mg QHS PO ; Start 03/04/18 at 21:00 Active Scripts Active Reported Novolog Flexpen (Insulin Aspart) 100 Unit/1 Ml Insuln.pen 2-10 Units SQ TIDWMEALHC Risperdal (Risperidone) 0.25 Mg Tablet 0.25 Mg BID Cymbalta (Duloxetine Hcl) 60 Mg Capsule.dr 60 Mg PO DAILY Famotidine 20 Mg Tablet 20 Mg PO BID Mag-Al Plus Xs Suspension (Mag Hydrox/Al Hydrox/Simeth) 30 Ml Oral.susp 15 Ml PO PRN AFTMEALHC PRN Celebrex (Celecoxib) 100 Mg Capsule 100 Mg PO BID Vitamin C (Ascorbate Calcium) 500 Mg Tablet 500 Mg PO DAILY Robitussin Cough-Chest Dm Liq (Guaifenesin/Dextromethorphan) 237 Ml Liquid 10 Ml PO PRN Q4HRS PRN Percocet 10-325 Mg Tablet (Oxycodone Hcl/Acetaminophen) 1 Each Tablet 1 Tab PO PRN Q4HRS PRN Percocet 10-325 Mg Tablet (Oxycodone Hcl/Acetaminophen) 1 Each Tablet 1 Tab PO BID Ondansetron Hcl 4 Mg Tablet 4 Mg PO PRN Q4HRS PRN Nystatin 15 Gm Powder 1 Sam TP PRN TID PRN Nitrostat (Nitroglycerin) 0.4 Mg Tab.subl 0.4 Mg SL PRN Q5MIN PRN MDD 3tabs Melatonin 5 Mg Tablet (Melatonin/Pyridoxine) 1 Each Tablet 6 Mg PO QHS Loperamide (Loperamide Hcl) 2 Mg Tablet 2 Mg PO PRN Q4HRS PRN MDD 16mg Keppra (Levetiracetam) 500 Mg Tablet 500 Mg PO BID Ferrous Sulfate 325 Mg Tablet 325 Mg PO DAILY Neurontin (Gabapentin) 300 Mg Capsule 300 Mg PO TID Voltaren (Diclofenac Sodium) 100 Gm Gel..gram. 4 Gm TP PRN QID PRN Budesonide 0.5 Mg/2 Ml Ampul.neb 0.5 Mg NEB PRN BID PRN Dicyclomine Hcl 10 Mg Capsule 10 Mg PO PRN Q8HRS PRN Artificial Tears Eye Drops (Dextran 70/Hypromellose) 15 Ml Drops 1 Drop OU TID PRN Anusol-Hc (Hydrocortisone Acetate) 25 Mg Supp.rect 25 Mg RC PRN Q12HR PRN Anusol-Hc (Hydrocortisone) 30 Gm Cream..g. 1 Sam RC PRN Q24HRS PRN Norvasc (Amlodipine Besylate) 10 Mg Tablet 10 Mg PO DAILY Alprazolam 0.5 Mg Tablet 0.5 Mg PO HS Tylenol (Acetaminophen) 325 Mg Tablet 650 Mg PO PRN Q6HRS PRN Albuterol Sulfate Neb Soln (Albuterol Sulfate) 2.5 Mg/3 Ml Vial.neb 2.5 Mg NEB PRN Q4HRS PRN Milk Of Magnesia (Magnesium Hydroxide) 400 Mg/5 Ml Oral.susp 2,400 Mg PO PRN QHS PRN Actos (Pioglitazone Hcl) 15 Mg Tablet 15 Mg PO [id number] I have reviewed the current psychotropics carefully including drug interactions. Risk benefit ratio favors no change other than as noted in my dictated progress note. Diagnosis: Problems: (1) Anxiety disorder (2) Impulse control disorder (3) Major depressive disorder, recurrent episode (4) Mild cognitive impairment BEA SAWANT MD March 04, 2018 19:54
[2018-03-04] MEDS: DIVALPROEX ER 500 MG TAB.ER.24H PO SCH (20:13)
[2018-03-04] MEDS: ALPRAZolam 0.5 MG TABLET PO SCH (20:13)
[2018-03-04] MEDS: MELATONIN 3 MG TABLET PO SCH (20:14)
[2018-03-04] MEDS: MIRTAZAPINE 7.5 MG TABLET. PO SCH (20:14)
--- NOTE | 2018-03-04 22:01 | PN ---
DATE: 03/02/2018 This late entry date of service 03/02/2018 covers elements not covered in my initial note of 03/02/2018. SUBJECTIVE: I met with the patient in the evening. The patient slept 5-1/4 hours, somewhat delusional, suspicious, then better later in the day asking for wheelchair, though she is able to ambulate on her own. REVIEW OF SYSTEMS: No CV, , pulmonary, eye, ENT system symptoms on review. MENTAL STATUS EXAM: Oriented to herself and situation. Speech moderate latency, often responses monosyllabic. Abstraction fair, computation impaired, language function intact. Mood and affect less withdrawn. LABORATORY DATA: Reviewed. IMPRESSION: Unchanged from initial note. PLAN: Continue current psychotropics. MAN Farrah SAWANT MD DR: MARK/daphne JOB#: [id number] / [id number]
--- NOTE | 2018-03-05 03:30 | PN ---
DATE: 02/22/2018 This is a late entry, , covers the elements not covered in my initial note, 02/22/2018. SUBJECTIVE: I met with the patient in the evening and staffed at a treatment team meeting with the entire team in the morning. The patient remains somewhat withdrawn, but not aggressive. Paranoia is better. REVIEW OF SYSTEMS: Ambulation impaired, in wheelchair. No CV, , pulmonary, eye, ENT system symptoms on review. MENTAL STATUS EXAM: Oriented to herself and situation. Speech moderate latency, often responses monosyllabic. Abstraction fair, computation impaired, language function intact. Mood and affect less withdrawn. LABORATORY DATA: Reviewed. IMPRESSION: Unchanged from initial note. PLAN: Continue current psychotropics. Risperdal was increased. MAN Farrah SAWANT MD DR: MARK/daphne JOB#: [id number] / [id number]
[2018-03-05 06:29] VITALS: BP 137/77
[2018-03-05] MEDS: levETIRAcetam 500 MG TABLET PO SCH ×2 (07:25→20:13)
[2018-03-05] MEDS: FAMOTIDINE 20 MG TABLET PO SCH (07:25)
[2018-03-05] MEDS: DULoxetine HCL 60 MG CAPSULE.DR PO SCH (07:25)
[2018-03-05] MEDS: GABAPENTIN 300 MG CAPSULE. PO SCH ×2 (07:25→20:13)
[2018-03-05] MEDS: PIOGLITAZONE 15 MG TABLET. PO SCH (07:26)
[2018-03-05] MEDS: ASCORBIC ACID 500 MG TABLET PO SCH (07:26)
[2018-03-05] MEDS: risperiDONE 0.25 MG TABLET. PO SCH ×2 (07:26→20:12)
[2018-03-05] MEDS: amLODIPine BESYLATE 10 MG TABLET PO SCH (07:26)
[2018-03-05] MEDS: FERROUS SULFATE 325 MG TABLET. PO SCH (07:26)
[2018-03-05] MEDS: oxyCODONE/APAP 10/325 1 TAB TABLET PO SCH ×2 (07:29→20:12)
[2018-03-05] MEDS: INSULIN LISPRO 300 UNITS/3 ML INSULN.PEN. SQ SCH ×4 (08:00→22:32)
[2018-03-05] MEDS: BUDESONIDE 0.5 MG/2 ML NEBU NEB SCH ×2 (09:44→22:20)
[2018-03-05 16:23] VITALS: BP 108/65
[2018-03-05] MEDS: MIRTAZAPINE 7.5 MG TABLET. PO SCH (20:13)
[2018-03-05] MEDS: ALPRAZolam 0.5 MG TABLET PO SCH (20:13)
[2018-03-05] MEDS: MELATONIN 3 MG TABLET PO SCH (20:15)
[2018-03-05] MEDS: DIVALPROEX ER 500 MG TAB.ER.24H PO SCH (20:15)
--- NOTE | 2018-03-05 23:26 | PDOC ---
Exam Note: Neal Note: Please also refer to the separate dictated note~for this date of service dictated separately.~Patient seen individually. Discussed the patient with Nursing staff reviewed the chart.~Reviewed interim history and current functioning. Reviewed vital signs,~Labs/ Radiology~and current medications noted below. Continue current treatment with the changes noted in the dictated addendum note Assessment: Vital Signs: Vital Signs Date Time Temp Pulse Resp B/P (MAP) Pulse Ox O2 Delivery O2 Flow Rate FiO2 03/05/18 22:20 94 Room Air 03/05/18 16:23 97.5 88 18 108/65 (79) I&O Intake and Output 03/05/18 07:00 Intake Total 1320 ml Balance 1320 ml Intake Oral 1320 ml Labs: Laboratory Tests Test 03/05/18 08:10 03/05/18 11:37 03/05/18 16:50 03/05/18 19:09 Glucose (Fingerstick) 124 mg/dL (70-99) H 305 mg/dL (70-99) H 349 mg/dL (70-99) H 290 mg/dL (70-99) H Current Medications: Meds: Current Medications Acetaminophen (Tylenol) 1,000 mg 1X ONCE PO Last administered on 02/22/18at 03: 05; Start 02/22/18 at 03:30; Stop 02/22/18 at 03:31; Status DC Alprazolam (Xanax) 0.5 mg QHS PO Last administered on 03/05/18at 20:13; Start at 21:00 Duloxetine HCl (Cymbalta) 60 mg DAILY PO Last administered on 03/05/18at 07:25; Start 02/22/18 at 09:00 Melatonin 6 mg QHS PO Last administered on 03/05/18at 20:15; Start 02/22/18 at 21:00 Risperidone (RisperDAL) 0.25 mg BID PO Last administered on 02/23/18at 08:51; Start 02/22/18 at 09:00; Stop 02/23/18 at 13:23; Status DC Acetaminophen (Tylenol) 650 mg PRN Q6HRS PRN PO PAIN / TEMP; Start 02/22/18 at 05:00 Albuterol Sulfate (Ventolin) 2.5 mg PRN Q4HRS PRN NEB Dyspnea; Start 02/22/18 at 05:00 Diclofenac Sodium (Voltaren) 4 sam PRN QID PRN TP R Knee Pain; Start 02/22/18 at 05:00 Dicyclomine HCl (Bentyl) 10 mg PRN Q8HRS PRN PO Bowel Cramps; Start 02/22/18 at 05:00 Ferrous Sulfate (Feosol) 325 mg DAILY PO Last administered on 03/05/18at 07:26; Start 02/22/18 at 09:00 Gabapentin (Neurontin) 300 mg BID PO Last administered on 03/05/18at 20:13; Start 02/22/18 at 09:00 Hydrocortisone (Proctosol-Hc) 1 sam PRN Q24HRS PRN RC Hemorrhoids; Start at 05:00 Insulin Aspart (NovoLOG) BS 200-2,50= 2 un... TIDWMEALHC SQ ; Start 02/22/18 at 08:00; Stop 02/22/18 at 08:01; Status DC Al Hydroxide/Mg Hydroxide (Mylanta Plus Xs) 15 ml PRN AFTMEALHC PRN PO DYSPEPSIA; Start 02/22/18 at 05:00 Magnesium Hydroxide (Milk Of Magnesia) 2,400 mg PRN QHS PRN PO CONSTIPATION Last administered on 02/26/18at 21:15; Start 02/22/18 at 05:00 Nitroglycerin (Nitrostat) 0.4 mg PRN Q5MIN PRN SL CHEST PAIN; Start 02/22/18 at 05:00 Nystatin (Nystop) 1 sam PRN TID PRN TP REDNESS; Start 02/22/18 at 05:00 Oxycodone/ Acetaminophen (Percocet 10/325) 1 tab BID PO Last administered on at 20:12; Start 02/22/18 at 09:00 Oxycodone/ Acetaminophen (Percocet 10/325) 1 tab PRN Q4HRS PRN PO PAIN Last administered on 02/22/18at 10:09; Start 02/22/18 at 05:00 Amlodipine Besylate (Norvasc) 10 mg DAILY PO Last administered on 03/05/18at 07: 26; Start 02/22/18 at 09:00 Ascorbic Acid (Vitamin C) 500 mg DAILY PO Last administered on 03/05/18at 07:26 ; Start 02/22/18 at 09:00 Budesonide (Pulmicort) 0.5 mg RTBID NEB Last administered on 03/05/18at 22:20; Start 02/22/18 at 08:00 Celecoxib (CeleBREX) 100 mg BID PO Last administered on 03/04/18at 07:58; Start 02/22/18 at 09:00; Stop 03/04/18 at 17:39; Status DC Artificial Tears (Artificial Tears) 1 drop TID PRN PRN OU DRY EYE; Start at 05:30 Famotidine (Pepcid) 20 mg DAILY PO Last administered on 03/05/18at 07:25; Start 02/22/18 at 09:00 Guaifenesin (Robitussin Dm) 10 ml PRN Q4HRS PRN PO COUGH; Start 02/22/18 at 05: 30 Hydrocortisone Acetate (Anucort-Hc) 25 mg PRN Q12HR PRN AL RECTAL PAIN; Start 02/22/18 at 05:30 Levetiracetam (Keppra) 500 mg BID PO Last administered on 03/05/18at 20:13; Start 02/22/18 at 09:00 Loperamide HCl (Imodium) 2 mg PRN Q4HRS PRN PO DIARRHEA; Start 02/22/18 at 05: 30 Ondansetron HCl (Zofran Odt) 4 mg PRN Q4HRS PRN PO NAUSEA/VOMITING; Start 02/22 at 05:30 Pioglitazone HCl (Actos) 15 mg DAILY PO Last administered on 03/05/18at 07:26; Start 02/22/18 at 09:00 Multi-Ingredient Ointment (Analgesic [place]) 1 sam PRN QID PRN TP MUSCLE PAIN; Start 02/22/18 at 05:00 Insulin Human Lispro (HumaLOG) TIDWMEALHC SQ Last administered on 03/05/18at 22 :32; Start 02/22/18 at 08:00 Mirtazapine (Remeron) 7.5 mg QHS PO Last administered on 03/05/18at 20:13; Start 02/22/18 at 21:00 Risperidone (RisperDAL) 0.375 mg BID PO Last administered on 02/26/18at 11:50; Start 02/23/18 at 21:00; Stop 02/26/18 at 19:49; Status DC Olanzapine (ZyPREXA ZYDIS) 5 mg PRN Q2HR PRN PO PSYCHOSIS Last administered on 03/05/18at 15:00; Start 02/23/18 at 19:45 Divalproex Sodium (Depakote Sprinkles) 125 mg TID@0900,1300,1700 PO Last administered on 03/01/18at 17:39; Start 02/26/18 at 09:00; Stop 03/01/18 at 18:29 ; Status DC Risperidone (RisperDAL) 0.5 mg BID PO Last administered on 03/01/18at 10:17; Start 02/26/18 at 21:00; Stop 03/01/18 at 18:29; Status DC Divalproex Sodium (Depakote Sprinkles) 250 mg TID@0900,1300,1700 PO Last administered on 03/04/18at 17:59; Start 03/02/18 at 09:00; Stop 03/04/18 at 19:22 ; Status DC Risperidone (RisperDAL) 0.75 mg BID PO Last administered on 03/05/18at 20:12; Start 03/01/18 at 21:00 Divalproex Sodium (Depakote Er) 1,000 mg QHS PO Last administered on 03/05/18at 20:15; Start 03/04/18 at 21:00 Active Scripts Active Reported Novolog Flexpen (Insulin Aspart) 100 Unit/1 Ml Insuln.pen 2-10 Units SQ TIDWMEALHC Risperdal (Risperidone) 0.25 Mg Tablet 0.25 Mg BID Cymbalta (Duloxetine Hcl) 60 Mg Capsule.dr 60 Mg PO DAILY Famotidine 20 Mg Tablet 20 Mg PO BID Mag-Al Plus Xs Suspension (Mag Hydrox/Al Hydrox/Simeth) 30 Ml Oral.susp 15 Ml PO PRN AFTMEALHC PRN Celebrex (Celecoxib) 100 Mg Capsule 100 Mg PO BID Vitamin C (Ascorbate Calcium) 500 Mg Tablet 500 Mg PO DAILY Robitussin Cough-Chest Dm Liq (Guaifenesin/Dextromethorphan) 237 Ml Liquid 10 Ml PO PRN Q4HRS PRN Percocet 10-325 Mg Tablet (Oxycodone Hcl/Acetaminophen) 1 Each Tablet 1 Tab PO PRN Q4HRS PRN Percocet 10-325 Mg Tablet (Oxycodone Hcl/Acetaminophen) 1 Each Tablet 1 Tab PO BID Ondansetron Hcl 4 Mg Tablet 4 Mg PO PRN Q4HRS PRN Nystatin 15 Gm Powder 1 Sam TP PRN TID PRN Nitrostat (Nitroglycerin) 0.4 Mg Tab.subl 0.4 Mg SL PRN Q5MIN PRN MDD 3tabs Melatonin 5 Mg Tablet (Melatonin/Pyridoxine) 1 Each Tablet 6 Mg PO QHS Loperamide (Loperamide Hcl) 2 Mg Tablet 2 Mg PO PRN Q4HRS PRN MDD 16mg Keppra (Levetiracetam) 500 Mg Tablet 500 Mg PO BID Ferrous Sulfate 325 Mg Tablet 325 Mg PO DAILY Neurontin (Gabapentin) 300 Mg Capsule 300 Mg PO TID Voltaren (Diclofenac Sodium) 100 Gm Gel..gram. 4 Gm TP PRN QID PRN Budesonide 0.5 Mg/2 Ml Ampul.neb 0.5 Mg NEB PRN BID PRN Dicyclomine Hcl 10 Mg Capsule 10 Mg PO PRN Q8HRS PRN Artificial Tears Eye Drops (Dextran 70/Hypromellose) 15 Ml Drops 1 Drop OU TID PRN Anusol-Hc (Hydrocortisone Acetate) 25 Mg Supp.rect 25 Mg RC PRN Q12HR PRN Anusol-Hc (Hydrocortisone) 30 Gm Cream..g. 1 Sam RC PRN Q24HRS PRN Norvasc (Amlodipine Besylate) 10 Mg Tablet 10 Mg PO DAILY Alprazolam 0.5 Mg Tablet 0.5 Mg PO HS Tylenol (Acetaminophen) 325 Mg Tablet 650 Mg PO PRN Q6HRS PRN Albuterol Sulfate Neb Soln (Albuterol Sulfate) 2.5 Mg/3 Ml Vial.neb 2.5 Mg NEB PRN Q4HRS PRN Milk Of Magnesia (Magnesium Hydroxide) 400 Mg/5 Ml Oral.susp 2,400 Mg PO PRN QHS PRN Actos (Pioglitazone Hcl) 15 Mg Tablet 15 Mg PO [id number] I have reviewed the current psychotropics carefully including drug interactions. Risk benefit ratio favors no change other than as noted in my dictated progress note. Diagnosis: Problems: (1) Anxiety disorder (2) Impulse control disorder (3) Major depressive disorder, recurrent episode (4) Mild cognitive impairment BEA SAWANT MD March 05, 2018 23:26
[2018-03-06 06:23] VITALS: BP 148/65
[2018-03-06] MEDS: PIOGLITAZONE 15 MG TABLET. PO SCH (07:42)
[2018-03-06] MEDS: FAMOTIDINE 20 MG TABLET PO SCH (07:42)
[2018-03-06] MEDS: levETIRAcetam 500 MG TABLET PO SCH ×2 (07:43→19:16)
[2018-03-06] MEDS: GABAPENTIN 300 MG CAPSULE. PO SCH ×2 (07:43→19:16)
[2018-03-06] MEDS: DULoxetine HCL 60 MG CAPSULE.DR PO SCH (07:43)
[2018-03-06] MEDS: ASCORBIC ACID 500 MG TABLET PO SCH (07:43)
[2018-03-06] MEDS: risperiDONE 0.25 MG TABLET. PO SCH ×2 (07:43→19:15)
[2018-03-06] MEDS: amLODIPine BESYLATE 10 MG TABLET PO SCH (07:43)
[2018-03-06] MEDS: FERROUS SULFATE 325 MG TABLET. PO SCH (07:43)
[2018-03-06] MEDS: oxyCODONE/APAP 10/325 1 TAB TABLET PO SCH ×2 (07:44→19:16)
[2018-03-06] MEDS: INSULIN LISPRO 300 UNITS/3 ML INSULN.PEN. SQ SCH ×4 (08:00→21:26)
[2018-03-06] MEDS: BUDESONIDE 0.5 MG/2 ML NEBU NEB SCH ×2 (08:00→20:40)
[2018-03-06 16:51] VITALS: BP 167/76
[2018-03-06] MEDS: MELATONIN 3 MG TABLET PO SCH (19:15)
[2018-03-06] MEDS: MIRTAZAPINE 7.5 MG TABLET. PO SCH (19:15)
[2018-03-06] MEDS: ALPRAZolam 0.5 MG TABLET PO SCH (19:15)
[2018-03-06] MEDS: DIVALPROEX ER 500 MG TAB.ER.24H PO SCH (19:17)
--- NOTE | 2018-03-06 21:01 | PDOC ---
Exam Note: Neal Note: Please also refer to the separate dictated note~for this date of service dictated separately.~Patient seen individually. Discussed the patient with Nursing staff reviewed the chart.~Reviewed interim history and current functioning. Reviewed vital signs,~Labs/ Radiology~and current medications noted below. Continue current treatment with the changes noted in the dictated addendum note Assessment: Vital Signs: Vital Signs Date Time Temp Pulse Resp B/P (MAP) Pulse Ox O2 Delivery O2 Flow Rate FiO2 03/06/18 20:40 97 Room Air 03/06/18 16:51 98.4 96 18 167/76 (106) I&O Intake and Output 03/06/18 07:00 Intake Total 840 ml Balance 840 ml Intake Oral 840 ml Labs: Laboratory Tests Test 03/06/18 07:48 03/06/18 11:15 03/06/18 16:19 03/06/18 19:30 Glucose (Fingerstick) 166 mg/dL (70-99) H 126 mg/dL (70-99) H 342 mg/dL (70-99) H 274 mg/dL (70-99) H Current Medications: Meds: Current Medications Acetaminophen (Tylenol) 1,000 mg 1X ONCE PO Last administered on 02/22/18at 03: 05; Start 02/22/18 at 03:30; Stop 02/22/18 at 03:31; Status DC Alprazolam (Xanax) 0.5 mg QHS PO Last administered on 03/06/18at 19:15; Start at 21:00 Duloxetine HCl (Cymbalta) 60 mg DAILY PO Last administered on 03/06/18at 07:43; Start 02/22/18 at 09:00 Melatonin 6 mg QHS PO Last administered on 03/06/18at 19:15; Start 02/22/18 at 21:00 Risperidone (RisperDAL) 0.25 mg BID PO Last administered on 02/23/18at 08:51; Start 02/22/18 at 09:00; Stop 02/23/18 at 13:23; Status DC Acetaminophen (Tylenol) 650 mg PRN Q6HRS PRN PO PAIN / TEMP; Start 02/22/18 at 05:00 Albuterol Sulfate (Ventolin) 2.5 mg PRN Q4HRS PRN NEB Dyspnea; Start 02/22/18 at 05:00 Diclofenac Sodium (Voltaren) 4 sam PRN QID PRN TP R Knee Pain; Start 02/22/18 at 05:00 Dicyclomine HCl (Bentyl) 10 mg PRN Q8HRS PRN PO Bowel Cramps; Start 02/22/18 at 05:00 Ferrous Sulfate (Feosol) 325 mg DAILY PO Last administered on 03/06/18at 07:43; Start 02/22/18 at 09:00 Gabapentin (Neurontin) 300 mg BID PO Last administered on 03/06/18 19:16; Start 02/22/18 at 09:00 Hydrocortisone (Proctosol-Hc) 1 sam PRN Q24HRS PRN RC Hemorrhoids; Start at 05:00 Insulin Aspart (NovoLOG) BS 200-2,50= 2 un... TIDWMEALHC SQ ; Start 02/22/18 at 08:00; Stop 02/22/18 at 08:01; Status DC Al Hydroxide/Mg Hydroxide (Mylanta Plus Xs) 15 ml PRN AFTMEALHC PRN PO DYSPEPSIA; Start 02/22/18 at 05:00 Magnesium Hydroxide (Milk Of Magnesia) 2,400 mg PRN QHS PRN PO CONSTIPATION Last administered on 02/26/18at 21:15; Start 02/22/18 at 05:00 Nitroglycerin (Nitrostat) 0.4 mg PRN Q5MIN PRN SL CHEST PAIN; Start 02/22/18 at 05:00 Nystatin (Nystop) 1 sam PRN TID PRN TP REDNESS; Start 02/22/18 at 05:00 Oxycodone/ Acetaminophen (Percocet 10/325) 1 tab BID PO Last administered on at 19:16; Start 02/22/18 at 09:00 Oxycodone/ Acetaminophen (Percocet 10/325) 1 tab PRN Q4HRS PRN PO PAIN Last administered on 02/22/18at 10:09; Start 02/22/18 at 05:00 Amlodipine Besylate (Norvasc) 10 mg DAILY PO Last administered on 03/06/18at 07: 43; Start 02/22/18 at 09:00 Ascorbic Acid (Vitamin C) 500 mg DAILY PO Last administered on 03/06/18at 07:43 ; Start 02/22/18 at 09:00 Budesonide (Pulmicort) 0.5 mg RTBID NEB Last administered on 03/06/18at 20:40; Start 02/22/18 at 08:00 Celecoxib (CeleBREX) 100 mg BID PO Last administered on 03/04/18at 07:58; Start 02/22/18 at 09:00; Stop 03/04/18 at 17:39; Status DC Artificial Tears (Artificial Tears) 1 drop TID PRN PRN OU DRY EYE; Start at 05:30 Famotidine (Pepcid) 20 mg DAILY PO Last administered on 03/06/18at 07:42; Start 02/22/18 at 09:00 Guaifenesin (Robitussin Dm) 10 ml PRN Q4HRS PRN PO COUGH; Start 02/22/18 at 05: 30 Hydrocortisone Acetate (Anucort-Hc) 25 mg PRN Q12HR PRN NE RECTAL PAIN; Start 02/22/18 at 05:30 Levetiracetam (Keppra) 500 mg BID PO Last administered on 03/06/18at 19:16; Start 02/22/18 at 09:00 Loperamide HCl (Imodium) 2 mg PRN Q4HRS PRN PO DIARRHEA; Start 02/22/18 at 05: 30 Ondansetron HCl (Zofran Odt) 4 mg PRN Q4HRS PRN PO NAUSEA/VOMITING; Start 02/22 at 05:30 Pioglitazone HCl (Actos) 15 mg DAILY PO Last administered on 03/06/18at 07:42; Start 02/22/18 at 09:00 Multi-Ingredient Ointment (Analgesic [place]) 1 sam PRN QID PRN TP MUSCLE PAIN; Start 02/22/18 at 05:00 Insulin Human Lispro (HumaLOG) TIDWMEALHC SQ Last administered on 03/06/18at 17 :00; Start 02/22/18 at 08:00 Mirtazapine (Remeron) 7.5 mg QHS PO Last administered on 03/06/18at 19:15; Start 02/22/18 at 21:00 Risperidone (RisperDAL) 0.375 mg BID PO Last administered on 02/26/18at 11:50; Start 02/23/18 at 21:00; Stop 02/26/18 at 19:49; Status DC Olanzapine (ZyPREXA ZYDIS) 5 mg PRN Q2HR PRN PO PSYCHOSIS Last administered on 03/06/18 18:20; Start 02/23/18 at 19:45 Divalproex Sodium (Depakote Sprinkles) 125 mg TID@0900,1300,1700 PO Last administered on 03/01/18at 17:39; Start 02/26/18 at 09:00; Stop 03/01/18 at 18:29 ; Status DC Risperidone (RisperDAL) 0.5 mg BID PO Last administered on 03/01/18 10:17; Start 02/26/18 at 21:00; Stop 03/01/18 at 18:29; Status DC Divalproex Sodium (Depakote Sprinkles) 250 mg TID@0900,1300,1700 PO Last administered on 03/04/18at 17:59; Start 03/02/18 at 09:00; Stop 03/04/18 at 19:22 ; Status DC Risperidone (RisperDAL) 0.75 mg BID PO Last administered on 03/06/18 19:15; Start 03/01/18 at 21:00 Divalproex Sodium (Depakote Er) 1,000 mg QHS PO Last administered on 03/06/18 19:17; Start 03/04/18 at 21:00 Active Scripts Active Reported Novolog Flexpen (Insulin Aspart) 100 Unit/1 Ml Insuln.pen 2-10 Units SQ TIDWMEALHC Risperdal (Risperidone) 0.25 Mg Tablet 0.25 Mg BID Cymbalta (Duloxetine Hcl) 60 Mg Capsule.dr 60 Mg PO DAILY Famotidine 20 Mg Tablet 20 Mg PO BID Mag-Al Plus Xs Suspension (Mag Hydrox/Al Hydrox/Simeth) 30 Ml Oral.susp 15 Ml PO PRN AFTMEALHC PRN Celebrex (Celecoxib) 100 Mg Capsule 100 Mg PO BID Vitamin C (Ascorbate Calcium) 500 Mg Tablet 500 Mg PO DAILY Robitussin Cough-Chest Dm Liq (Guaifenesin/Dextromethorphan) 237 Ml Liquid 10 Ml PO PRN Q4HRS PRN Percocet 10-325 Mg Tablet (Oxycodone Hcl/Acetaminophen) 1 Each Tablet 1 Tab PO PRN Q4HRS PRN Percocet 10-325 Mg Tablet (Oxycodone Hcl/Acetaminophen) 1 Each Tablet 1 Tab PO BID Ondansetron Hcl 4 Mg Tablet 4 Mg PO PRN Q4HRS PRN Nystatin 15 Gm Powder 1 Sam TP PRN TID PRN Nitrostat (Nitroglycerin) 0.4 Mg Tab.subl 0.4 Mg SL PRN Q5MIN PRN MDD 3tabs Melatonin 5 Mg Tablet (Melatonin/Pyridoxine) 1 Each Tablet 6 Mg PO QHS Loperamide (Loperamide Hcl) 2 Mg Tablet 2 Mg PO PRN Q4HRS PRN MDD 16mg Keppra (Levetiracetam) 500 Mg Tablet 500 Mg PO BID Ferrous Sulfate 325 Mg Tablet 325 Mg PO DAILY Neurontin (Gabapentin) 300 Mg Capsule 300 Mg PO TID Voltaren (Diclofenac Sodium) 100 Gm Gel..gram. 4 Gm TP PRN QID PRN Budesonide 0.5 Mg/2 Ml Ampul.neb 0.5 Mg NEB PRN BID PRN Dicyclomine Hcl 10 Mg Capsule 10 Mg PO PRN Q8HRS PRN Artificial Tears Eye Drops (Dextran 70/Hypromellose) 15 Ml Drops 1 Drop OU TID PRN Anusol-Hc (Hydrocortisone Acetate) 25 Mg Supp.rect 25 Mg RC PRN Q12HR PRN Anusol-Hc (Hydrocortisone) 30 Gm Cream..g. 1 Sam RC PRN Q24HRS PRN Norvasc (Amlodipine Besylate) 10 Mg Tablet 10 Mg PO DAILY Alprazolam 0.5 Mg Tablet 0.5 Mg PO HS Tylenol (Acetaminophen) 325 Mg Tablet 650 Mg PO PRN Q6HRS PRN Albuterol Sulfate Neb Soln (Albuterol Sulfate) 2.5 Mg/3 Ml Vial.neb 2.5 Mg NEB PRN Q4HRS PRN Milk Of Magnesia (Magnesium Hydroxide) 400 Mg/5 Ml Oral.susp 2,400 Mg PO PRN QHS PRN Actos (Pioglitazone Hcl) 15 Mg Tablet 15 Mg PO [id number] I have reviewed the current psychotropics carefully including drug interactions. Risk benefit ratio favors no change other than as noted in my dictated progress note. Diagnosis: Problems: (1) Anxiety disorder (2) Impulse control disorder (3) Major depressive disorder, recurrent episode (4) Mild cognitive impairment BEA SAWANT MD March 06, 2018 21:01
[2018-03-06] MEDS: ACETAMINOPHEN 325 MG TABLET PO PRN (21:24)
[2018-03-07 06:30] VITALS: BP 148/81
[2018-03-07] MEDS: INSULIN LISPRO 300 UNITS/3 ML INSULN.PEN. SQ SCH ×4 (08:00→21:50)
[2018-03-07] MEDS: GABAPENTIN 300 MG CAPSULE. PO SCH ×2 (08:11→20:07)
[2018-03-07] MEDS: PIOGLITAZONE 15 MG TABLET. PO SCH (08:11)
[2018-03-07] MEDS: levETIRAcetam 500 MG TABLET PO SCH ×2 (08:11→20:07)
[2018-03-07] MEDS: risperiDONE 0.25 MG TABLET. PO SCH ×2 (08:11→20:07)
[2018-03-07] MEDS: FAMOTIDINE 20 MG TABLET PO SCH (08:11)
[2018-03-07] MEDS: ASCORBIC ACID 500 MG TABLET PO SCH (08:11)
[2018-03-07] MEDS: FERROUS SULFATE 325 MG TABLET. PO SCH (08:11)
[2018-03-07] MEDS: amLODIPine BESYLATE 10 MG TABLET PO SCH (08:12)
[2018-03-07] MEDS: DULoxetine HCL 60 MG CAPSULE.DR PO SCH (08:12)
[2018-03-07] MEDS: oxyCODONE/APAP 10/325 1 TAB TABLET PO SCH ×2 (08:13→20:09)
[2018-03-07 08:16] LABS: ALBUMIN 2.8 g/dL (3.4-5.0); ALBUMIN/GLOBULIN RATIO 0.7 (1.0-1.7); CALCIUM 8.7 mg/dL (8.5-10.1); CREATININE 1.1 mg/dL (0.6-1.0); GFR 59.1; POTASSIUM 4.4 mmol/L (3.5-5.1); TOTAL BILIRUBIN 0.3 mg/dL (0.2-1.0); TOTAL PROTEIN 6.8 g/dL (6.4-8.2)
[2018-03-07 08:18] LABS: BASO % 0 % (0-3); EOS # 0.1 x10^3/uL (0.0-0.7); EOS % 2 % (0-3); HEMATOCRIT 29.2 % (36.0-47.0); HEMOGLOBIN 9.5 g/dL (12.0-15.5); LYMPH # 1.8 x10^3/uL (1.0-4.8); LYMPH % 33 % (24-48); MEAN CORPUSCULAR HEMOGLOBIN 27 pg (25-35); MEAN CORPUSCULAR HGB CONC 32 g/dL (31-37); MEAN CORPUSCULAR VOLUME 84 fL (79-100); MONO # 0.5 x10^3/uL (0.0-1.1); MONO % 9 % (0-9); NEUT % 55 % (31-73); PLATELET COUNT 217 x10^3/uL (140-400); RED BLOOD COUNT 3.47 x10^6/uL (3.50-5.40); RED CELL DISTRIBUTION WIDTH 17.2 % (11.5-14.5); WHITE BLOOD COUNT 5.4 x10^3/uL (4.0-11.0)
[2018-03-07] MEDS: BUDESONIDE 0.5 MG/2 ML NEBU NEB SCH ×2 (11:27→20:31)
[2018-03-07 11:28] LABS: VAL ACID 48 mcg/mL (50-100)
[2018-03-07 16:04] VITALS: BP 143/71
[2018-03-07] MEDS: MIRTAZAPINE 7.5 MG TABLET. PO SCH (20:08)
[2018-03-07] MEDS: DIVALPROEX ER 250 MG TAB.ER.24H. PO SCH (20:12)
[2018-03-07] MEDS: MELATONIN 3 MG TABLET PO SCH (20:12)
--- NOTE | 2018-03-07 20:43 | PDOC ---
Exam Note: Neal Note: Please also refer to the separate dictated note~for this date of service dictated separately.~Patient seen individually. Discussed the patient with Nursing staff reviewed the chart.~Reviewed interim history and current functioning. Reviewed vital signs,~Labs/ Radiology~and current medications noted below. Continue current treatment with the changes noted in the dictated addendum note Assessment: Vital Signs: Vital Signs Date Time Temp Pulse Resp B/P (MAP) Pulse Ox O2 Delivery O2 Flow Rate FiO2 03/07/18 20:33 98 Room Air 03/07/18 16:04 97.7 62 20 143/71 (95) I&O Intake and Output 03/07/18 07:00 Intake Total 960 ml Balance 960 ml Intake Oral 960 ml # Voids 1 Labs: Laboratory Tests Test 03/07/18 07:30 03/07/18 07:48 03/07/18 11:29 03/07/18 17:01 Glucose (Fingerstick) 148 mg/dL (70-99) H 232 mg/dL (70-99) H 248 mg/dL (70-99) H White Blood Count 5.4 x10^3/uL (4.0-11.0) Red Blood Count 3.47 x10^6/uL (3.50-5.40) L Hemoglobin 9.5 g/dL (12.0-15.5) L Hematocrit 29.2 % (36.0-47.0) L Mean Corpuscular Volume 84 fL (79-100) Mean Corpuscular Hemoglobin 27 pg (25-35) Mean Corpuscular Hemoglobin Concent 32 g/dL (31-37) Red Cell Distribution Width 17.2 % (11.5-14.5) H Platelet Count 217 x10^3/uL (140-400) Neutrophils (%) (Auto) 55 % (31-73) Lymphocytes (%) (Auto) 33 % (24-48) Monocytes (%) (Auto) 9 % (0-9) Eosinophils (%) (Auto) 2 % (0-3) Basophils (%) (Auto) 0 % (0-3) Neutrophils # (Auto) 3.0 x10^3uL (1.8-7.7) Lymphocytes # (Auto) 1.8 x10^3/uL (1.0-4.8) Monocytes # (Auto) 0.5 x10^3/uL (0.0-1.1) Eosinophils # (Auto) 0.1 x10^3/uL (0.0-0.7) Basophils # (Auto) 0.0 x10^3/uL (0.0-0.2) Sodium Level 145 mmol/L (136-145) Potassium Level 4.4 mmol/L (3.5-5.1) Chloride Level 108 mmol/L (98-107) H Carbon Dioxide Level 29 mmol/L (21-32) Anion Gap 8 (6-14) Blood Urea Nitrogen 27 mg/dL (7-20) H Creatinine 1.1 mg/dL (0.6-1.0) H Estimated GFR (Cockcroft-Gault) 59.1 BUN/Creatinine Ratio 25 (6-20) H Glucose Level 147 mg/dL (70-99) H Calcium Level 8.7 mg/dL (8.5-10.1) Total Bilirubin 0.3 mg/dL (0.2-1.0) Aspartate Amino Transferase (AST) 25 U/L (15-37) Alanine Aminotransferase (ALT) 21 U/L (14-59) Alkaline Phosphatase 87 U/L (46-116) Total Protein 6.8 g/dL (6.4-8.2) Albumin 2.8 g/dL (3.4-5.0) L Albumin/Globulin Ratio 0.7 (1.0-1.7) L Valproic Acid Level 48 mcg/mL (50-100) L Valproic Acid Last Dose Date 03/06/2018 Valproic Acid Last Dose Time 2100 Test 03/07/18 19:09 Glucose (Fingerstick) 305 mg/dL (70-99) H Current Medications: Meds: Current Medications Acetaminophen (Tylenol) 1,000 mg 1X ONCE PO Last administered on 02/22/18at 03: 05; Start 02/22/18 at 03:30; Stop 02/22/18 at 03:31; Status DC Alprazolam (Xanax) 0.5 mg QHS PO Last administered on 03/06/18at 19:15; Start at 21:00 Duloxetine HCl (Cymbalta) 60 mg DAILY PO Last administered on 03/07/18at 08:12; Start 02/22/18 at 09:00 Melatonin 6 mg QHS PO Last administered on 03/07/18at 20:12; Start 02/22/18 at 21:00 Risperidone (RisperDAL) 0.25 mg BID PO Last administered on 02/23/18at 08:51; Start 02/22/18 at 09:00; Stop 02/23/18 at 13:23; Status DC Acetaminophen (Tylenol) 650 mg PRN Q6HRS PRN PO PAIN / TEMP Last administered on 03/06/18at 21:24; Start 02/22/18 at 05:00 Albuterol Sulfate (Ventolin) 2.5 mg PRN Q4HRS PRN NEB Dyspnea; Start 02/22/18 at 05:00 Diclofenac Sodium (Voltaren) 4 sam PRN QID PRN TP R Knee Pain; Start 02/22/18 at 05:00 Dicyclomine HCl (Bentyl) 10 mg PRN Q8HRS PRN PO Bowel Cramps; Start 02/22/18 at 05:00 Ferrous Sulfate (Feosol) 325 mg DAILY PO Last administered on 03/07/18at 08:11; Start 02/22/18 at 09:00 Gabapentin (Neurontin) 300 mg BID PO Last administered on 03/07/18at 20:07; Start 02/22/18 at 09:00 Hydrocortisone (Proctosol-Hc) 1 sam PRN Q24HRS PRN RC Hemorrhoids; Start at 05:00 Insulin Aspart (NovoLOG) BS 200-2,50= 2 un... TIDWMEALHC SQ ; Start 02/22/18 at 08:00; Stop 02/22/18 at 08:01; Status DC Al Hydroxide/Mg Hydroxide (Mylanta Plus Xs) 15 ml PRN AFTMEALHC PRN PO DYSPEPSIA; Start 02/22/18 at 05:00 Magnesium Hydroxide (Milk Of Magnesia) 2,400 mg PRN QHS PRN PO CONSTIPATION Last administered on 02/26/18at 21:15; Start 02/22/18 at 05:00 Nitroglycerin (Nitrostat) 0.4 mg PRN Q5MIN PRN SL CHEST PAIN; Start 02/22/18 at 05:00 Nystatin (Nystop) 1 sam PRN TID PRN TP REDNESS; Start 02/22/18 at 05:00 Oxycodone/ Acetaminophen (Percocet 10/325) 1 tab BID PO Last administered on at 20:09; Start 02/22/18 at 09:00 Oxycodone/ Acetaminophen (Percocet 10/325) 1 tab PRN Q4HRS PRN PO PAIN Last administered on 02/22/18 10:09; Start 02/22/18 at 05:00 Amlodipine Besylate (Norvasc) 10 mg DAILY PO Last administered on 03/07/18 08: 12; Start 02/22/18 at 09:00 Ascorbic Acid (Vitamin C) 500 mg DAILY PO Last administered on 03/07/18 08:11 ; Start 02/22/18 at 09:00 Budesonide (Pulmicort) 0.5 mg RTBID NEB Last administered on 03/07/18 20:31; Start 02/22/18 at 08:00 Celecoxib (CeleBREX) 100 mg BID PO Last administered on 03/04/18at 07:58; Start 02/22/18 at 09:00; Stop 03/04/18 at 17:39; Status DC Artificial Tears (Artificial Tears) 1 drop TID PRN PRN OU DRY EYE; Start at 05:30 Famotidine (Pepcid) 20 mg DAILY PO Last administered on 03/07/18at 08:11; Start 02/22/18 at 09:00 Guaifenesin (Robitussin Dm) 10 ml PRN Q4HRS PRN PO COUGH; Start 02/22/18 at 05: 30 Hydrocortisone Acetate (Anucort-Hc) 25 mg PRN Q12HR PRN [place] RECTAL PAIN; Start 02/22/18 at 05:30 Levetiracetam (Keppra) 500 mg BID PO Last administered on 03/07/18at 20:07; Start 02/22/18 at 09:00 Loperamide HCl (Imodium) 2 mg PRN Q4HRS PRN PO DIARRHEA; Start 02/22/18 at 05: 30 Ondansetron HCl (Zofran Odt) 4 mg PRN Q4HRS PRN PO NAUSEA/VOMITING; Start 02/22 at 05:30 Pioglitazone HCl (Actos) 15 mg DAILY PO Last administered on 03/07/18at 08:11; Start 02/22/18 at 09:00 Multi-Ingredient Ointment (Analgesic [place]) 1 sam PRN QID PRN TP MUSCLE PAIN; Start 02/22/18 at 05:00 Insulin Human Lispro (HumaLOG) TIDWMEALHC SQ Last administered on 03/07/18at 17 :00; Start 02/22/18 at 08:00 Mirtazapine (Remeron) 7.5 mg QHS PO Last administered on 03/07/18at 20:08; Start 02/22/18 at 21:00 Risperidone (RisperDAL) 0.375 mg BID PO Last administered on 02/26/18at 11:50; Start 02/23/18 at 21:00; Stop 02/26/18 at 19:49; Status DC Olanzapine (ZyPREXA ZYDIS) 5 mg PRN Q2HR PRN PO PSYCHOSIS Last administered on 03/06/18at 18:20; Start 02/23/18 at 19:45 Divalproex Sodium (Depakote Sprinkles) 125 mg TID@0900,1300,1700 PO Last administered on 03/01/18at 17:39; Start 02/26/18 at 09:00; Stop 03/01/18 at 18:29 ; Status DC Risperidone (RisperDAL) 0.5 mg BID PO Last administered on 03/01/18at 10:17; Start 02/26/18 at 21:00; Stop 03/01/18 at 18:29; Status DC Divalproex Sodium (Depakote Sprinkles) 250 mg TID@0900,1300,1700 PO Last administered on 03/04/18at 17:59; Start 03/02/18 at 09:00; Stop 03/04/18 at 19:22 ; Status DC Risperidone (RisperDAL) 0.75 mg BID PO Last administered on 03/07/18at 20:07; Start 03/01/18 at 21:00 Divalproex Sodium (Depakote Er) 1,000 mg QHS PO Last administered on 03/06/18 19:17; Start 03/04/18 at 21:00; Stop 03/07/18 at 19:54; Status DC Divalproex Sodium (Depakote Er) 1,000 mg QHS PO ; Start 03/07/18 at 21:00 Divalproex Sodium (Depakote Er) 250 mg QHS PO Last administered on 03/07/18at 20 :12; Start 03/07/18 at 21:00 Active Scripts Active Reported Novolog Flexpen (Insulin Aspart) 100 Unit/1 Ml Insuln.pen 2-10 Units SQ TIDWMEALHC Risperdal (Risperidone) 0.25 Mg Tablet 0.25 Mg BID Cymbalta (Duloxetine Hcl) 60 Mg Capsule.dr 60 Mg PO DAILY Famotidine 20 Mg Tablet 20 Mg PO BID Mag-Al Plus Xs Suspension (Mag Hydrox/Al Hydrox/Simeth) 30 Ml Oral.susp 15 Ml PO PRN AFTMEALHC PRN Celebrex (Celecoxib) 100 Mg Capsule 100 Mg PO BID Vitamin C (Ascorbate Calcium) 500 Mg Tablet 500 Mg PO DAILY Robitussin Cough-Chest Dm Liq (Guaifenesin/Dextromethorphan) 237 Ml Liquid 10 Ml PO PRN Q4HRS PRN Percocet 10-325 Mg Tablet (Oxycodone Hcl/Acetaminophen) 1 Each Tablet 1 Tab PO PRN Q4HRS PRN Percocet 10-325 Mg Tablet (Oxycodone Hcl/Acetaminophen) 1 Each Tablet 1 Tab PO BID Ondansetron Hcl 4 Mg Tablet 4 Mg PO PRN Q4HRS PRN Nystatin 15 Gm Powder 1 Sam TP PRN TID PRN Nitrostat (Nitroglycerin) 0.4 Mg Tab.subl 0.4 Mg SL PRN Q5MIN PRN MDD 3tabs Melatonin 5 Mg Tablet (Melatonin/Pyridoxine) 1 Each Tablet 6 Mg PO QHS Loperamide (Loperamide Hcl) 2 Mg Tablet 2 Mg PO PRN Q4HRS PRN MDD 16mg Keppra (Levetiracetam) 500 Mg Tablet 500 Mg PO BID Ferrous Sulfate 325 Mg Tablet 325 Mg PO DAILY Neurontin (Gabapentin) 300 Mg Capsule 300 Mg PO TID Voltaren (Diclofenac Sodium) 100 Gm Gel..gram. 4 Gm TP PRN QID PRN Budesonide 0.5 Mg/2 Ml Ampul.neb 0.5 Mg NEB PRN BID PRN Dicyclomine Hcl 10 Mg Capsule 10 Mg PO PRN Q8HRS PRN Artificial Tears Eye Drops (Dextran 70/Hypromellose) 15 Ml Drops 1 Drop OU TID PRN Anusol-Hc (Hydrocortisone Acetate) 25 Mg Supp.rect 25 Mg RC PRN Q12HR PRN Anusol-Hc (Hydrocortisone) 30 Gm Cream..g. 1 Sam RC PRN Q24HRS PRN Norvasc (Amlodipine Besylate) 10 Mg Tablet 10 Mg PO DAILY Alprazolam 0.5 Mg Tablet 0.5 Mg PO HS Tylenol (Acetaminophen) 325 Mg Tablet 650 Mg PO PRN Q6HRS PRN Albuterol Sulfate Neb Soln (Albuterol Sulfate) 2.5 Mg/3 Ml Vial.neb 2.5 Mg NEB PRN Q4HRS PRN Milk Of Magnesia (Magnesium Hydroxide) 400 Mg/5 Ml Oral.susp 2,400 Mg PO PRN QHS PRN Actos (Pioglitazone Hcl) 15 Mg Tablet 15 Mg PO DAILYWBKFT I have reviewed the current psychotropics carefully including drug interactions. Risk benefit ratio favors no change other than as noted in my dictated progress note. Diagnosis: Problems: (1) Anxiety disorder (2) Impulse control disorder (3) Major depressive disorder, recurrent episode (4) Mild cognitive impairment BEA SAWANT MD March 07, 2018 20:43
[2018-03-07] MEDS: DIVALPROEX ER 500 MG TAB.ER.24H PO SCH (21:00)
[2018-03-07] MEDS: ALPRAZolam 0.5 MG TABLET PO SCH (21:39)
[2018-03-08 06:26] VITALS: BP 160/73
[2018-03-08] MEDS: INSULIN LISPRO 300 UNITS/3 ML INSULN.PEN. SQ SCH ×4 (08:00→21:09)
--- NOTE | 2018-03-08 09:27 | PN ---
DATE: 03/04/2018 PSYCHIATRIC PROGRESS NOTE This is a late entry for 03/04/2018, covers the elements not covered in my initial note. SUBJECTIVE: The patient has slept in the morning of 03/04/2018. Valproic acid level is 17. REVIEW OF SYSTEMS: No CV, , pulmonary, eye, ENT system symptoms on review. Reliability fair. MENTAL STATUS EXAM: Oriented to herself and situation. Speech coherent, has some latency. Abstraction fair, computation impaired, language function intact. Mood and affect somewhat labile and irritable. LABORATORY DATA: Reviewed. IMPRESSION: Unchanged from initial note. PLAN: She is on Depakote Sprinkles 250 mg 3 times a day, resistive to medications. We will change it to Depakote ER 1 g daily. We will check CBC, CMP, valproic acid level in 3 days. Valproic acid level as of 03/04/2018 is 17. MAN Farrah SAWANT MD DR: MARK/daphne JOB#: [id number] / [id number]
--- NOTE | 2018-03-08 09:28 | PN ---
DATE: 03/05/2018 PSYCHIATRIC PROGRESS NOTE This note covers the elements not covered in my initial note 03/05/2018. This is a late entry for 03/05/2018. SUBJECTIVE: The patient slept 6-3/4 hours previous evening. She did all right till about 3:00 p.m., then going into other patient's rooms, yelling, did receive Zyprexa Zydis then did better. Talks softly paranoid. REVIEW OF SYSTEMS: No CV, , pulmonary, eye system symptoms on review. Gait unsteady, in wheelchair. MENTAL STATUS EXAM: Oriented to herself. Speech has some latency, coherent. Abstraction fair, computation impaired, language function intact. Mood and affect still withdrawn. LABORATORY DATA: Reviewed. IMPRESSION: Unchanged from initial note. PLAN: Depakote ER was changed to 1000 mg p.o. at bedtime. Rest unchanged. MAN Farrah SAWANT MD DR: MARK/daphne JOB#: [id number] / [id number]
[2018-03-08] MEDS: GABAPENTIN 300 MG CAPSULE. PO SCH ×2 (09:40→19:19)
[2018-03-08] MEDS: DULoxetine HCL 60 MG CAPSULE.DR PO SCH (09:40)
[2018-03-08] MEDS: FAMOTIDINE 20 MG TABLET PO SCH (09:41)
[2018-03-08] MEDS: risperiDONE 0.25 MG TABLET. PO SCH ×2 (09:41→19:20)
[2018-03-08] MEDS: FERROUS SULFATE 325 MG TABLET. PO SCH (09:42)
[2018-03-08] MEDS: amLODIPine BESYLATE 10 MG TABLET PO SCH (09:42)
[2018-03-08] MEDS: levETIRAcetam 500 MG TABLET PO SCH ×2 (09:42→19:20)
[2018-03-08] MEDS: PIOGLITAZONE 15 MG TABLET. PO SCH (09:42)
[2018-03-08] MEDS: ASCORBIC ACID 500 MG TABLET PO SCH (09:43)
[2018-03-08] MEDS: oxyCODONE/APAP 10/325 1 TAB TABLET PO SCH ×2 (09:45→19:23)
[2018-03-08] MEDS: BUDESONIDE 0.5 MG/2 ML NEBU NEB SCH ×2 (10:40→21:47)
[2018-03-08 16:18] VITALS: BP 111/76
[2018-03-08] MEDS: MIRTAZAPINE 7.5 MG TABLET. PO SCH (19:18)
[2018-03-08] MEDS: DIVALPROEX ER 250 MG TAB.ER.24H. PO SCH (19:19)
[2018-03-08] MEDS: DIVALPROEX ER 500 MG TAB.ER.24H PO SCH (19:20)
[2018-03-08] MEDS: MELATONIN 3 MG TABLET PO SCH (19:20)
[2018-03-08] MEDS: ALPRAZolam 0.5 MG TABLET PO SCH (19:23)
--- NOTE | 2018-03-08 20:47 | PDOC ---
Exam Note: Neal Note: Please also refer to the separate dictated note~for this date of service dictated separately.~Patient seen individually. Discussed the patient with Nursing staff reviewed the chart.~Reviewed interim history and current functioning. Reviewed vital signs,~Labs/ Radiology~and current medications noted below. Continue current treatment with the changes noted in the dictated addendum note Assessment: Vital Signs: Vital Signs Date Time Temp Pulse Resp B/P (MAP) Pulse Ox O2 Delivery O2 Flow Rate FiO2 03/08/18 16:18 98.2 88 20 111/76 (88) 100 03/08/18 10:40 Room Air I&O Intake and Output 03/08/18 07:00 Intake Total 1320 ml Balance 1320 ml Intake Oral 1320 ml Labs: Laboratory Tests Test 03/08/18 07:55 03/08/18 11:31 03/08/18 16:26 03/08/18 19:18 Glucose (Fingerstick) 82 mg/dL (70-99) 120 mg/dL (70-99) H 340 mg/dL (70-99) H 235 mg/dL (70-99) H Current Medications: Meds: Current Medications Acetaminophen (Tylenol) 1,000 mg 1X ONCE PO Last administered on 02/22/18at 03: 05; Start 02/22/18 at 03:30; Stop 02/22/18 at 03:31; Status DC Alprazolam (Xanax) 0.5 mg QHS PO Last administered on 03/08/18at 19:23; Start at 21:00 Duloxetine HCl (Cymbalta) 60 mg DAILY PO Last administered on 03/08/18at 09:40; Start 02/22/18 at 09:00 Melatonin 6 mg QHS PO Last administered on 03/08/18at 19:20; Start 02/22/18 at 21:00 Risperidone (RisperDAL) 0.25 mg BID PO Last administered on 02/23/18at 08:51; Start 02/22/18 at 09:00; Stop 02/23/18 at 13:23; Status DC Acetaminophen (Tylenol) 650 mg PRN Q6HRS PRN PO PAIN / TEMP Last administered on 03/06/18at 21:24; Start 02/22/18 at 05:00 Albuterol Sulfate (Ventolin) 2.5 mg PRN Q4HRS PRN NEB Dyspnea; Start 02/22/18 at 05:00 Diclofenac Sodium (Voltaren) 4 sam PRN QID PRN TP R Knee Pain; Start 02/22/18 at 05:00 Dicyclomine HCl (Bentyl) 10 mg PRN Q8HRS PRN PO Bowel Cramps; Start 02/22/18 at 05:00 Ferrous Sulfate (Feosol) 325 mg DAILY PO Last administered on 03/08/18at 09:42; Start 02/22/18 at 09:00 Gabapentin (Neurontin) 300 mg BID PO Last administered on 03/08/18 19:19; Start 02/22/18 at 09:00 Hydrocortisone (Proctosol-Hc) 1 sam PRN Q24HRS PRN RC Hemorrhoids; Start at 05:00 Insulin Aspart (NovoLOG) BS 200-2,50= 2 un... TIDWMEALHC SQ ; Start 02/22/18 at 08:00; Stop 02/22/18 at 08:01; Status DC Al Hydroxide/Mg Hydroxide (Mylanta Plus Xs) 15 ml PRN AFTMEALHC PRN PO DYSPEPSIA; Start 02/22/18 at 05:00 Magnesium Hydroxide (Milk Of Magnesia) 2,400 mg PRN QHS PRN PO CONSTIPATION Last administered on 02/26/18at 21:15; Start 02/22/18 at 05:00 Nitroglycerin (Nitrostat) 0.4 mg PRN Q5MIN PRN SL CHEST PAIN; Start 02/22/18 at 05:00 Nystatin (Nystop) 1 sam PRN TID PRN TP REDNESS; Start 02/22/18 at 05:00 Oxycodone/ Acetaminophen (Percocet 10/325) 1 tab BID PO Last administered on at 19:23; Start 02/22/18 at 09:00 Oxycodone/ Acetaminophen (Percocet 10/325) 1 tab PRN Q4HRS PRN PO PAIN Last administered on 02/22/18at 10:09; Start 02/22/18 at 05:00 Amlodipine Besylate (Norvasc) 10 mg DAILY PO Last administered on 03/08/18at 09: 42; Start 02/22/18 at 09:00 Ascorbic Acid (Vitamin C) 500 mg DAILY PO Last administered on 03/08/18 09:43 ; Start 02/22/18 at 09:00 Budesonide (Pulmicort) 0.5 mg RTBID NEB Last administered on 03/08/18at 10:40; Start 02/22/18 at 08:00 Celecoxib (CeleBREX) 100 mg BID PO Last administered on 03/04/18 07:58; Start 02/22/18 at 09:00; Stop 03/04/18 at 17:39; Status DC Artificial Tears (Artificial Tears) 1 drop TID PRN PRN OU DRY EYE; Start at 05:30 Famotidine (Pepcid) 20 mg DAILY PO Last administered on 03/08/18 09:41; Start 02/22/18 at 09:00 Guaifenesin (Robitussin Dm) 10 ml PRN Q4HRS PRN PO COUGH; Start 02/22/18 at 05: 30 Hydrocortisone Acetate (Anucort-Hc) 25 mg PRN Q12HR PRN NE RECTAL PAIN; Start 02/22/18 at 05:30 Levetiracetam (Keppra) 500 mg BID PO Last administered on 03/08/18 19:20; Start 02/22/18 at 09:00 Loperamide HCl (Imodium) 2 mg PRN Q4HRS PRN PO DIARRHEA; Start 02/22/18 at 05: 30 Ondansetron HCl (Zofran Odt) 4 mg PRN Q4HRS PRN PO NAUSEA/VOMITING; Start 02/22 at 05:30 Pioglitazone HCl (Actos) 15 mg DAILY PO Last administered on 03/08/18at 09:42; Start 02/22/18 at 09:00 Multi-Ingredient Ointment (Analgesic [place]) 1 sam PRN QID PRN TP MUSCLE PAIN; Start 02/22/18 at 05:00 Insulin Human Lispro (HumaLOG) TIDWMEALHC SQ Last administered on 03/08/18 17 :32; Start 02/22/18 at 08:00 Mirtazapine (Remeron) 7.5 mg QHS PO Last administered on 03/08/18 19:18; Start 02/22/18 at 21:00 Risperidone (RisperDAL) 0.375 mg BID PO Last administered on 02/26/18at 11:50; Start 02/23/18 at 21:00; Stop 02/26/18 at 19:49; Status DC Olanzapine (ZyPREXA ZYDIS) 5 mg PRN Q2HR PRN PO PSYCHOSIS Last administered on 03/06/18 18:20; Start 02/23/18 at 19:45 Divalproex Sodium (Depakote Sprinkles) 125 mg TID@0900,1300,1700 PO Last administered on 03/01/18 17:39; Start 02/26/18 at 09:00; Stop 03/01/18 at 18:29 ; Status DC Risperidone (RisperDAL) 0.5 mg BID PO Last administered on 03/01/18at 10:17; Start 02/26/18 at 21:00; Stop 03/01/18 at 18:29; Status DC Divalproex Sodium (Depakote Sprinkles) 250 mg TID@0900,1300,1700 PO Last administered on 03/04/18at 17:59; Start 03/02/18 at 09:00; Stop 03/04/18 at 19:22 ; Status DC Risperidone (RisperDAL) 0.75 mg BID PO Last administered on 03/08/18 19:20; Start 03/01/18 at 21:00 Divalproex Sodium (Depakote Er) 1,000 mg QHS PO Last administered on 03/06/18 19:17; Start 03/04/18 at 21:00; Stop 03/07/18 at 19:54; Status DC Divalproex Sodium (Depakote Er) 1,000 mg QHS PO Last administered on 03/08/18 19:20; Start 03/07/18 at 21:00 Divalproex Sodium (Depakote Er) 250 mg QHS PO Last administered on 03/08/18 19 :19; Start 03/07/18 at 21:00 Active Scripts Active Reported Novolog Flexpen (Insulin Aspart) 100 Unit/1 Ml Insuln.pen 2-10 Units SQ TIDWMEALHC Risperdal (Risperidone) 0.25 Mg Tablet 0.25 Mg BID Cymbalta (Duloxetine Hcl) 60 Mg Capsule.dr 60 Mg PO DAILY Famotidine 20 Mg Tablet 20 Mg PO BID Mag-Al Plus Xs Suspension (Mag Hydrox/Al Hydrox/Simeth) 30 Ml Oral.susp 15 Ml PO PRN AFTMEALHC PRN Celebrex (Celecoxib) 100 Mg Capsule 100 Mg PO BID Vitamin C (Ascorbate Calcium) 500 Mg Tablet 500 Mg PO DAILY Robitussin Cough-Chest Dm Liq (Guaifenesin/Dextromethorphan) 237 Ml Liquid 10 Ml PO PRN Q4HRS PRN Percocet 10-325 Mg Tablet (Oxycodone Hcl/Acetaminophen) 1 Each Tablet 1 Tab PO PRN Q4HRS PRN Percocet 10-325 Mg Tablet (Oxycodone Hcl/Acetaminophen) 1 Each Tablet 1 Tab PO BID Ondansetron Hcl 4 Mg Tablet 4 Mg PO PRN Q4HRS PRN Nystatin 15 Gm Powder 1 Sam TP PRN TID PRN Nitrostat (Nitroglycerin) 0.4 Mg Tab.subl 0.4 Mg SL PRN Q5MIN PRN MDD 3tabs Melatonin 5 Mg Tablet (Melatonin/Pyridoxine) 1 Each Tablet 6 Mg PO QHS Loperamide (Loperamide Hcl) 2 Mg Tablet 2 Mg PO PRN Q4HRS PRN MDD 16mg Keppra (Levetiracetam) 500 Mg Tablet 500 Mg PO BID Ferrous Sulfate 325 Mg Tablet 325 Mg PO DAILY Neurontin (Gabapentin) 300 Mg Capsule 300 Mg PO TID Voltaren (Diclofenac Sodium) 100 Gm Gel..gram. 4 Gm TP PRN QID PRN Budesonide 0.5 Mg/2 Ml Ampul.neb 0.5 Mg NEB PRN BID PRN Dicyclomine Hcl 10 Mg Capsule 10 Mg PO PRN Q8HRS PRN Artificial Tears Eye Drops (Dextran 70/Hypromellose) 15 Ml Drops 1 Drop OU TID PRN Anusol-Hc (Hydrocortisone Acetate) 25 Mg Supp.rect 25 Mg RC PRN Q12HR PRN Anusol-Hc (Hydrocortisone) 30 Gm Cream..g. 1 Sam RC PRN Q24HRS PRN Norvasc (Amlodipine Besylate) 10 Mg Tablet 10 Mg PO DAILY Alprazolam 0.5 Mg Tablet 0.5 Mg PO HS Tylenol (Acetaminophen) 325 Mg Tablet 650 Mg PO PRN Q6HRS PRN Albuterol Sulfate Neb Soln (Albuterol Sulfate) 2.5 Mg/3 Ml Vial.neb 2.5 Mg NEB PRN Q4HRS PRN Milk Of Magnesia (Magnesium Hydroxide) 400 Mg/5 Ml Oral.susp 2,400 Mg PO PRN QHS PRN Actos (Pioglitazone Hcl) 15 Mg Tablet 15 Mg PO [id number] I have reviewed the current psychotropics carefully including drug interactions. Risk benefit ratio favors no change other than as noted in my dictated progress note. Diagnosis: Problems: (1) Anxiety disorder (2) Impulse control disorder (3) Major depressive disorder, recurrent episode (4) Mild cognitive impairment BEA SAWANT MD March 08, 2018 20:47
[2018-03-09 06:05] VITALS: BP 162/76
[2018-03-09] MEDS: INSULIN LISPRO 300 UNITS/3 ML INSULN.PEN. SQ SCH ×4 (08:00→19:56)
[2018-03-09] MEDS: BUDESONIDE 0.5 MG/2 ML NEBU NEB SCH ×2 (08:00→21:34)
[2018-03-09] MEDS: PIOGLITAZONE 15 MG TABLET. PO SCH (09:25)
[2018-03-09] MEDS: ASCORBIC ACID 500 MG TABLET PO SCH (09:25)
[2018-03-09] MEDS: FAMOTIDINE 20 MG TABLET PO SCH (09:26)
[2018-03-09] MEDS: GABAPENTIN 300 MG CAPSULE. PO SCH ×2 (09:26→19:50)
[2018-03-09] MEDS: amLODIPine BESYLATE 10 MG TABLET PO SCH (09:26)
[2018-03-09] MEDS: risperiDONE 0.25 MG TABLET. PO SCH ×2 (09:26→19:54)
[2018-03-09] MEDS: FERROUS SULFATE 325 MG TABLET. PO SCH (09:26)
[2018-03-09] MEDS: DULoxetine HCL 60 MG CAPSULE.DR PO SCH (09:26)
[2018-03-09] MEDS: levETIRAcetam 500 MG TABLET PO SCH ×2 (09:26→19:50)
[2018-03-09] MEDS: oxyCODONE/APAP 10/325 1 TAB TABLET PO SCH ×2 (09:28→19:54)
--- NOTE | 2018-03-09 12:36 | PN ---
DATE: 03/07/2018 PSYCHIATRIC PROGRESS NOTE This is a late entry 03/07/2018, covers elements not covered in my initial note 03/07/2018. SUBJECTIVE: I met with the patient in the evening. The patient has been somewhat delusional, received Zyprexa at 3:00 p.m. She is convinced people are getting killed and they are blaming her for that. REVIEW OF SYSTEMS: No CV, , pulmonary, eye system symptoms on review. Reliability poor, somewhat more confused. Ambulation impaired, in wheelchair. MENTAL STATUS EXAM: Oriented to herself and situation. Speech has some latency, often responses monosyllabic. Abstraction fair, computation impaired, language function intact. Mood and affect still somewhat labile, withdrawn. LABORATORY DATA: Reviewed. IMPRESSION: Major depressive disorder with psychotic features, bipolar 1 disorder, mixed with psychotic features. PLAN: Valproic acid level is subtherapeutic at 47. We will increase Depakote ER from 1000 mg at bedtime to 1250 mg at bedtime. Check CBC, CMP, valproic acid level in 3 days. Continue rest unchanged. MAN Farrah SAWANT MD DR: MARK/daphne JOB#: [id number] / [id number]
[2018-03-09 16:14] VITALS: BP 118/89
[2018-03-09] MEDS: DIVALPROEX ER 500 MG TAB.ER.24H PO SCH (19:50)
[2018-03-09] MEDS: MELATONIN 3 MG TABLET PO SCH (19:50)
[2018-03-09] MEDS: MIRTAZAPINE 7.5 MG TABLET. PO SCH (19:51)
[2018-03-09] MEDS: DIVALPROEX ER 250 MG TAB.ER.24H. PO SCH (19:51)
[2018-03-09] MEDS: ALPRAZolam 0.5 MG TABLET PO SCH (19:54)
--- NOTE | 2018-03-09 21:02 | PDOC ---
Exam Note: Neal Note: Please also refer to the separate dictated note~for this date of service dictated separately.~Patient seen individually. Discussed the patient with Nursing staff reviewed the chart.~Reviewed interim history and current functioning. Reviewed vital signs,~Labs/ Radiology~and current medications noted below. Continue current treatment with the changes noted in the dictated addendum note Assessment: Vital Signs: Vital Signs Date Time Temp Pulse Resp B/P (MAP) Pulse Ox O2 Delivery O2 Flow Rate FiO2 03/09/18 16:14 97.1 93 18 118/89 (99) 96 Room Air I&O Intake and Output 03/09/18 07:00 Intake Total 480 ml Balance 480 ml Intake Oral 480 ml Labs: Laboratory Tests Test 03/09/18 07:31 03/09/18 11:10 03/09/18 16:06 03/09/18 19:27 Glucose (Fingerstick) 140 mg/dL (70-99) H 242 mg/dL (70-99) H 264 mg/dL (70-99) H 338 mg/dL (70-99) H Current Medications: Meds: Current Medications Acetaminophen (Tylenol) 1,000 mg 1X ONCE PO Last administered on 02/22/18at 03: 05; Start 02/22/18 at 03:30; Stop 02/22/18 at 03:31; Status DC Alprazolam (Xanax) 0.5 mg QHS PO Last administered on 03/09/18at 19:54; Start at 21:00 Duloxetine HCl (Cymbalta) 60 mg DAILY PO Last administered on 03/09/18at 09:26; Start 02/22/18 at 09:00 Melatonin 6 mg QHS PO Last administered on 03/09/18at 19:50; Start 02/22/18 at 21:00 Risperidone (RisperDAL) 0.25 mg BID PO Last administered on 02/23/18at 08:51; Start 02/22/18 at 09:00; Stop 02/23/18 at 13:23; Status DC Acetaminophen (Tylenol) 650 mg PRN Q6HRS PRN PO PAIN / TEMP Last administered on 03/06/18at 21:24; Start 02/22/18 at 05:00 Albuterol Sulfate (Ventolin) 2.5 mg PRN Q4HRS PRN NEB Dyspnea; Start 02/22/18 at 05:00 Diclofenac Sodium (Voltaren) 4 sam PRN QID PRN TP R Knee Pain; Start 02/22/18 at 05:00 Dicyclomine HCl (Bentyl) 10 mg PRN Q8HRS PRN PO Bowel Cramps; Start 02/22/18 at 05:00 Ferrous Sulfate (Feosol) 325 mg DAILY PO Last administered on 03/09/18at 09:26; Start 02/22/18 at 09:00 Gabapentin (Neurontin) 300 mg BID PO Last administered on 03/09/18at 19:50; Start 02/22/18 at 09:00 Hydrocortisone (Proctosol-Hc) 1 sam PRN Q24HRS PRN RC Hemorrhoids; Start at 05:00 Insulin Aspart (NovoLOG) BS 200-2,50= 2 un... TIDWMEALHC SQ ; Start 02/22/18 at 08:00; Stop 02/22/18 at 08:01; Status DC Al Hydroxide/Mg Hydroxide (Mylanta Plus Xs) 15 ml PRN AFTMEALHC PRN PO DYSPEPSIA; Start 02/22/18 at 05:00 Magnesium Hydroxide (Milk Of Magnesia) 2,400 mg PRN QHS PRN PO CONSTIPATION Last administered on 02/26/18at 21:15; Start 02/22/18 at 05:00 Nitroglycerin (Nitrostat) 0.4 mg PRN Q5MIN PRN SL CHEST PAIN; Start 02/22/18 at 05:00 Nystatin (Nystop) 1 sam PRN TID PRN TP REDNESS; Start 02/22/18 at 05:00 Oxycodone/ Acetaminophen (Percocet 10/325) 1 tab BID PO Last administered on at 19:54; Start 02/22/18 at 09:00 Oxycodone/ Acetaminophen (Percocet 10/325) 1 tab PRN Q4HRS PRN PO PAIN Last administered on 02/22/18at 10:09; Start 02/22/18 at 05:00 Amlodipine Besylate (Norvasc) 10 mg DAILY PO Last administered on 03/09/18at 09: 26; Start 02/22/18 at 09:00 Ascorbic Acid (Vitamin C) 500 mg DAILY PO Last administered on 03/09/18 09:25 ; Start 02/22/18 at 09:00 Budesonide (Pulmicort) 0.5 mg RTBID NEB Last administered on 03/08/18at 21:47; Start 02/22/18 at 08:00 Celecoxib (CeleBREX) 100 mg BID PO Last administered on 03/04/18at 07:58; Start 02/22/18 at 09:00; Stop 03/04/18 at 17:39; Status DC Artificial Tears (Artificial Tears) 1 drop TID PRN PRN OU DRY EYE; Start at 05:30 Famotidine (Pepcid) 20 mg DAILY PO Last administered on 03/09/18at 09:26; Start 02/22/18 at 09:00 Guaifenesin (Robitussin Dm) 10 ml PRN Q4HRS PRN PO COUGH; Start 02/22/18 at 05: 30 Hydrocortisone Acetate (Anucort-Hc) 25 mg PRN Q12HR PRN MA RECTAL PAIN; Start 02/22/18 at 05:30 Levetiracetam (Keppra) 500 mg BID PO Last administered on 03/09/18at 19:50; Start 02/22/18 at 09:00 Loperamide HCl (Imodium) 2 mg PRN Q4HRS PRN PO DIARRHEA; Start 02/22/18 at 05: 30 Ondansetron HCl (Zofran Odt) 4 mg PRN Q4HRS PRN PO NAUSEA/VOMITING; Start 02/22 at 05:30 Pioglitazone HCl (Actos) 15 mg DAILY PO Last administered on 03/09/18at 09:25; Start 02/22/18 at 09:00 Multi-Ingredient Ointment (Analgesic [place]) 1 sam PRN QID PRN TP MUSCLE PAIN; Start 02/22/18 at 05:00 Insulin Human Lispro (HumaLOG) TIDWMEALHC SQ Last administered on 03/09/18at 19 :56; Start 02/22/18 at 08:00 Mirtazapine (Remeron) 7.5 mg QHS PO Last administered on 03/09/18 19:51; Start 02/22/18 at 21:00 Risperidone (RisperDAL) 0.375 mg BID PO Last administered on 02/26/18at 11:50; Start 02/23/18 at 21:00; Stop 02/26/18 at 19:49; Status DC Olanzapine (ZyPREXA ZYDIS) 5 mg PRN Q2HR PRN PO PSYCHOSIS Last administered on 03/09/18 18:48; Start 02/23/18 at 19:45 Divalproex Sodium (Depakote Sprinkles) 125 mg TID@0900,1300,1700 PO Last administered on 03/01/18 17:39; Start 02/26/18 at 09:00; Stop 03/01/18 at 18:29 ; Status DC Risperidone (RisperDAL) 0.5 mg BID PO Last administered on 03/01/18 10:17; Start 02/26/18 at 21:00; Stop 03/01/18 at 18:29; Status DC Divalproex Sodium (Depakote Sprinkles) 250 mg TID@0900,1300,1700 PO Last administered on 03/04/18at 17:59; Start 03/02/18 at 09:00; Stop 03/04/18 at 19:22 ; Status DC Risperidone (RisperDAL) 0.75 mg BID PO Last administered on 03/09/18 19:54; Start 03/01/18 at 21:00 Divalproex Sodium (Depakote Er) 1,000 mg QHS PO Last administered on 03/06/18 19:17; Start 03/04/18 at 21:00; Stop 03/07/18 at 19:54; Status DC Divalproex Sodium (Depakote Er) 1,000 mg QHS PO Last administered on 03/09/18 19:50; Start 03/07/18 at 21:00 Divalproex Sodium (Depakote Er) 250 mg QHS PO Last administered on 03/09/18 19 :51; Start 03/07/18 at 21:00 Active Scripts Active Reported Novolog Flexpen (Insulin Aspart) 100 Unit/1 Ml Insuln.pen 2-10 Units SQ TIDWMEALHC Risperdal (Risperidone) 0.25 Mg Tablet 0.25 Mg BID Cymbalta (Duloxetine Hcl) 60 Mg Capsule.dr 60 Mg PO DAILY Famotidine 20 Mg Tablet 20 Mg PO BID Mag-Al Plus Xs Suspension (Mag Hydrox/Al Hydrox/Simeth) 30 Ml Oral.susp 15 Ml PO PRN AFTMEALHC PRN Celebrex (Celecoxib) 100 Mg Capsule 100 Mg PO BID Vitamin C (Ascorbate Calcium) 500 Mg Tablet 500 Mg PO DAILY Robitussin Cough-Chest Dm Liq (Guaifenesin/Dextromethorphan) 237 Ml Liquid 10 Ml PO PRN Q4HRS PRN Percocet 10-325 Mg Tablet (Oxycodone Hcl/Acetaminophen) 1 Each Tablet 1 Tab PO PRN Q4HRS PRN Percocet 10-325 Mg Tablet (Oxycodone Hcl/Acetaminophen) 1 Each Tablet 1 Tab PO BID Ondansetron Hcl 4 Mg Tablet 4 Mg PO PRN Q4HRS PRN Nystatin 15 Gm Powder 1 Sam TP PRN TID PRN Nitrostat (Nitroglycerin) 0.4 Mg Tab.subl 0.4 Mg SL PRN Q5MIN PRN MDD 3tabs Melatonin 5 Mg Tablet (Melatonin/Pyridoxine) 1 Each Tablet 6 Mg PO QHS Loperamide (Loperamide Hcl) 2 Mg Tablet 2 Mg PO PRN Q4HRS PRN MDD 16mg Keppra (Levetiracetam) 500 Mg Tablet 500 Mg PO BID Ferrous Sulfate 325 Mg Tablet 325 Mg PO DAILY Neurontin (Gabapentin) 300 Mg Capsule 300 Mg PO TID Voltaren (Diclofenac Sodium) 100 Gm Gel..gram. 4 Gm TP PRN QID PRN Budesonide 0.5 Mg/2 Ml Ampul.neb 0.5 Mg NEB PRN BID PRN Dicyclomine Hcl 10 Mg Capsule 10 Mg PO PRN Q8HRS PRN Artificial Tears Eye Drops (Dextran 70/Hypromellose) 15 Ml Drops 1 Drop OU TID PRN Anusol-Hc (Hydrocortisone Acetate) 25 Mg Supp.rect 25 Mg RC PRN Q12HR PRN Anusol-Hc (Hydrocortisone) 30 Gm Cream..g. 1 Sam RC PRN Q24HRS PRN Norvasc (Amlodipine Besylate) 10 Mg Tablet 10 Mg PO DAILY Alprazolam 0.5 Mg Tablet 0.5 Mg PO HS Tylenol (Acetaminophen) 325 Mg Tablet 650 Mg PO PRN Q6HRS PRN Albuterol Sulfate Neb Soln (Albuterol Sulfate) 2.5 Mg/3 Ml Vial.neb 2.5 Mg NEB PRN Q4HRS PRN Milk Of Magnesia (Magnesium Hydroxide) 400 Mg/5 Ml Oral.susp 2,400 Mg PO PRN QHS PRN Actos (Pioglitazone Hcl) 15 Mg Tablet 15 Mg PO [id number] I have reviewed the current psychotropics carefully including drug interactions. Risk benefit ratio favors no change other than as noted in my dictated progress note. Diagnosis: Problems: (1) Anxiety disorder (2) Impulse control disorder (3) Major depressive disorder, recurrent episode (4) Mild cognitive impairment BEA SAWANT MD March 09, 2018 21:02
--- NOTE | 2018-03-09 23:45 | PN ---
DATE: 03/06/2018 PSYCHIATRIC PROGRESS NOTE This is a late entry 03/06/2018 covers elements not covered in my initial note 03/06/2018. SUBJECTIVE: I met with the patient in the evening. The patient refused breakfast, told the staff she will slap the staff member if they insisted, took her medications whole the previous evening, compliant with medications. On 03/06/2018, received Zyprexa in the evening to help with mood lability. She has been anxious, restless, somewhat delusional, stating she was going to . She is hyper-cheondoism, refused breakfast, tearful, yelling at staff. REVIEW OF SYSTEMS: No CV, , pulmonary, eye system symptoms on review. Gait unsteady, in wheelchair. MENTAL STATUS EXAM: Oriented to herself and situation. Speech coherent, rapid at times. Abstraction fair, computation impaired, language function intact. Attention span short. Mood and affect somewhat withdrawn. LABORATORY DATA: Reviewed. IMPRESSION: Unchanged from initial note. PLAN: Continue current psychotropics from initial note. BEA SAWANT MD DR: MARK/daphne JOB#: [id number] / [id number]
--- NOTE | 2018-03-10 03:08 | PN ---
DATE: 03/08/2018 This is a late entry of 03/08/2018 covers elements not covered in my initial note of 03/08/2018. SUBJECTIVE: I met with the patient in the evening. The patient slept 7-1/2 hours previous evening, slept till noon time. REVIEW OF SYSTEMS: Ambulation impaired, in wheelchair, complains of neck pain, but no cogwheel rigidity is noted of the extremities as I examined her. She has been less agitated; however, less paranoid. No CV, , pulmonary, eye system symptoms on review. MENTAL STATUS EXAM: Oriented to herself and situation. Speech has some latency, coherent. Abstraction fair, computation impaired, language function intact. Mood and affect somewhat withdrawn. LABORATORY DATA: Reviewed. IMPRESSION: Unchanged from initial note. PLAN: Continue psychotropics from initial note. MAN Farrah SAWANT MD DR: MARK/daphne JOB#: [id number] / [id number]
[2018-03-10 06:19] VITALS: BP 180/70
[2018-03-10] MEDS: INSULIN LISPRO 300 UNITS/3 ML INSULN.PEN. SQ SCH ×4 (07:55→19:34)
[2018-03-10 08:13] LABS: ALBUMIN/GLOBULIN RATIO 0.7 (1.0-1.7); ALK PHOS 93 U/L (46-116); ALT (SGPT) 20 U/L (14-59); ANION GAP 7 (6-14); AST (SGOT) 19 U/L (15-37); BLOOD UREA NITROGEN 22 mg/dL (7-20); BUN/CREATININE RATIO 22 (6-20); CALCIUM 9.1 mg/dL (8.5-10.1); CARBON DIOXIDE 31 mmol/L (21-32); CHLORIDE 104 mmol/L (98-107); GFR 65.9; GLUCOSE 150 mg/dL (70-99); POTASSIUM 4.6 mmol/L (3.5-5.1); SODIUM 142 mmol/L (136-145); TOTAL BILIRUBIN 0.3 mg/dL (0.2-1.0); TOTAL PROTEIN 7.3 g/dL (6.4-8.2)
[2018-03-10 08:17] LABS: VAL ACID 73 mcg/mL (50-100)
[2018-03-10 08:19] LABS: BASO % 0 % (0-3); EOS # 0.1 x10^3/uL (0.0-0.7); EOS % 2 % (0-3); HEMATOCRIT 31.2 % (36.0-47.0); HEMOGLOBIN 10.2 g/dL (12.0-15.5); LYMPH # 2.1 x10^3/uL (1.0-4.8); LYMPH % 39 % (24-48); MEAN CORPUSCULAR HEMOGLOBIN 27 pg (25-35); MEAN CORPUSCULAR HGB CONC 33 g/dL (31-37); MEAN CORPUSCULAR VOLUME 84 fL (79-100); MONO # 0.5 x10^3/uL (0.0-1.1); MONO % 10 % (0-9); NEUT # 2.6 x10^3uL (1.8-7.7); NEUT % 49 % (31-73); PLATELET COUNT 227 x10^3/uL (140-400); RED BLOOD COUNT 3.74 x10^6/uL (3.50-5.40); RED CELL DISTRIBUTION WIDTH 16.4 % (11.5-14.5); WHITE BLOOD COUNT 5.3 x10^3/uL (4.0-11.0)
[2018-03-10] MEDS: risperiDONE 0.25 MG TABLET. PO SCH ×2 (09:00→19:32)
[2018-03-10] MEDS: oxyCODONE/APAP 10/325 1 TAB TABLET PO SCH ×2 (09:00→19:32)
[2018-03-10] MEDS: amLODIPine BESYLATE 10 MG TABLET PO SCH (09:00)
[2018-03-10] MEDS: ASCORBIC ACID 500 MG TABLET PO SCH (09:00)
[2018-03-10] MEDS: DULoxetine HCL 60 MG CAPSULE.DR PO SCH (09:00)
[2018-03-10] MEDS: PIOGLITAZONE 15 MG TABLET. PO SCH (09:00)
[2018-03-10] MEDS: GABAPENTIN 300 MG CAPSULE. PO SCH ×2 (09:00→19:31)
[2018-03-10] MEDS: levETIRAcetam 500 MG TABLET PO SCH ×2 (09:00→19:31)
[2018-03-10] MEDS: FERROUS SULFATE 325 MG TABLET. PO SCH (09:00)
[2018-03-10] MEDS: FAMOTIDINE 20 MG TABLET PO SCH (09:00)
[2018-03-10] MEDS: BUDESONIDE 0.5 MG/2 ML NEBU NEB SCH ×2 (11:21→21:53)
[2018-03-10 16:11] VITALS: BP 144/74
[2018-03-10] MEDS: DIVALPROEX ER 250 MG TAB.ER.24H. PO SCH (19:31)
[2018-03-10] MEDS: MELATONIN 3 MG TABLET PO SCH (19:31)
[2018-03-10] MEDS: DIVALPROEX ER 500 MG TAB.ER.24H PO SCH (19:31)
[2018-03-10] MEDS: ALPRAZolam 0.5 MG TABLET PO SCH (19:32)
[2018-03-10] MEDS: MIRTAZAPINE 7.5 MG TABLET. PO SCH (19:32)
--- NOTE | 2018-03-10 20:41 | PDOC ---
Exam Note: Neal Note: Please also refer to the separate dictated note~for this date of service dictated separately.~Patient seen individually. Discussed the patient with Nursing staff reviewed the chart.~Reviewed interim history and current functioning. Reviewed vital signs,~Labs/ Radiology~and current medications noted below. Continue current treatment with the changes noted in the dictated addendum note Assessment: Vital Signs: Vital Signs Date Time Temp Pulse Resp B/P (MAP) Pulse Ox O2 Delivery O2 Flow Rate FiO2 03/10/18 16:11 97.2 96 20 144/74 (97) 98 Room Air I&O Intake and Output 03/10/18 07:00 Intake Total 840 ml Balance 840 ml Intake Oral 840 ml Labs: Laboratory Tests Test 03/10/18 07:36 03/10/18 07:53 03/10/18 11:25 03/10/18 16:11 Glucose (Fingerstick) 137 mg/dL (70-99) H 207 mg/dL (70-99) H 280 mg/dL (70-99) H White Blood Count 5.3 x10^3/uL (4.0-11.0) Red Blood Count 3.74 x10^6/uL (3.50-5.40) Hemoglobin 10.2 g/dL (12.0-15.5) L Hematocrit 31.2 % (36.0-47.0) L Mean Corpuscular Volume 84 fL (79-100) Mean Corpuscular Hemoglobin 27 pg (25-35) Mean Corpuscular Hemoglobin Concent 33 g/dL (31-37) Red Cell Distribution Width 16.4 % (11.5-14.5) H Platelet Count 227 x10^3/uL (140-400) Neutrophils (%) (Auto) 49 % (31-73) Lymphocytes (%) (Auto) 39 % (24-48) Monocytes (%) (Auto) 10 % (0-9) H Eosinophils (%) (Auto) 2 % (0-3) Basophils (%) (Auto) 0 % (0-3) Neutrophils # (Auto) 2.6 x10^3uL (1.8-7.7) Lymphocytes # (Auto) 2.1 x10^3/uL (1.0-4.8) Monocytes # (Auto) 0.5 x10^3/uL (0.0-1.1) Eosinophils # (Auto) 0.1 x10^3/uL (0.0-0.7) Basophils # (Auto) 0.0 x10^3/uL (0.0-0.2) Sodium Level 142 mmol/L (136-145) Potassium Level 4.6 mmol/L (3.5-5.1) Chloride Level 104 mmol/L (98-107) Carbon Dioxide Level 31 mmol/L (21-32) Anion Gap 7 (6-14) Blood Urea Nitrogen 22 mg/dL (7-20) H Creatinine 1.0 mg/dL (0.6-1.0) Estimated GFR (Cockcroft-Gault) 65.9 BUN/Creatinine Ratio 22 (6-20) H Glucose Level 150 mg/dL (70-99) H Calcium Level 9.1 mg/dL (8.5-10.1) Total Bilirubin 0.3 mg/dL (0.2-1.0) Aspartate Amino Transferase (AST) 19 U/L (15-37) Alanine Aminotransferase (ALT) 20 U/L (14-59) Alkaline Phosphatase 93 U/L (46-116) Total Protein 7.3 g/dL (6.4-8.2) Albumin 3.0 g/dL (3.4-5.0) L Albumin/Globulin Ratio 0.7 (1.0-1.7) L Valproic Acid Level 73 mcg/mL (50-100) Valproic Acid Last Dose Date 03/09/2018 Valproic Acid Last Dose Time 2100 Test 03/10/18 19:04 Glucose (Fingerstick) 301 mg/dL (70-99) H Current Medications: Meds: Current Medications Acetaminophen (Tylenol) 1,000 mg 1X ONCE PO Last administered on 02/22/18at 03: 05; Start 02/22/18 at 03:30; Stop 02/22/18 at 03:31; Status DC Alprazolam (Xanax) 0.5 mg QHS PO Last administered on 03/10/18at 19:32; Start at 21:00 Duloxetine HCl (Cymbalta) 60 mg DAILY PO Last administered on 03/10/18at 09:00; Start 02/22/18 at 09:00 Melatonin 6 mg QHS PO Last administered on 03/10/18 19:31; Start 02/22/18 at 21:00 Risperidone (RisperDAL) 0.25 mg BID PO Last administered on 02/23/18at 08:51; Start 02/22/18 at 09:00; Stop 02/23/18 at 13:23; Status DC Acetaminophen (Tylenol) 650 mg PRN Q6HRS PRN PO PAIN / TEMP Last administered on 03/06/18at 21:24; Start 02/22/18 at 05:00 Albuterol Sulfate (Ventolin) 2.5 mg PRN Q4HRS PRN NEB Dyspnea; Start 02/22/18 at 05:00 Diclofenac Sodium (Voltaren) 4 sam PRN QID PRN TP R Knee Pain; Start 02/22/18 at 05:00 Dicyclomine HCl (Bentyl) 10 mg PRN Q8HRS PRN PO Bowel Cramps; Start 02/22/18 at 05:00 Ferrous Sulfate (Feosol) 325 mg DAILY PO Last administered on 03/10/18at 09:00; Start 02/22/18 at 09:00 Gabapentin (Neurontin) 300 mg BID PO Last administered on 03/10/18at 19:31; Start 02/22/18 at 09:00 Hydrocortisone (Proctosol-Hc) 1 sam PRN Q24HRS PRN RC Hemorrhoids; Start at 05:00 Insulin Aspart (NovoLOG) BS 200-2,50= 2 un... TIDWMEALHC SQ ; Start 02/22/18 at 08:00; Stop 02/22/18 at 08:01; Status DC Al Hydroxide/Mg Hydroxide (Mylanta Plus Xs) 15 ml PRN AFTMEALHC PRN PO DYSPEPSIA; Start 02/22/18 at 05:00 Magnesium Hydroxide (Milk Of Magnesia) 2,400 mg PRN QHS PRN PO CONSTIPATION Last administered on 02/26/18at 21:15; Start 02/22/18 at 05:00 Nitroglycerin (Nitrostat) 0.4 mg PRN Q5MIN PRN SL CHEST PAIN; Start 02/22/18 at 05:00 Nystatin (Nystop) 1 sam PRN TID PRN TP REDNESS; Start 02/22/18 at 05:00 Oxycodone/ Acetaminophen (Percocet 10/325) 1 tab BID PO Last administered on 19:32; Start 02/22/18 at 09:00 Oxycodone/ Acetaminophen (Percocet 10/325) 1 tab PRN Q4HRS PRN PO PAIN Last administered on 02/22/18 10:09; Start 02/22/18 at 05:00 Amlodipine Besylate (Norvasc) 10 mg DAILY PO Last administered on 03/10/18 09: 00; Start 02/22/18 at 09:00 Ascorbic Acid (Vitamin C) 500 mg DAILY PO Last administered on 03/10/18 09:00 ; Start 02/22/18 at 09:00 Budesonide (Pulmicort) 0.5 mg RTBID NEB Last administered on 03/10/18 11:21; Start 02/22/18 at 08:00 Celecoxib (CeleBREX) 100 mg BID PO Last administered on 03/04/18 07:58; Start 02/22/18 at 09:00; Stop 03/04/18 at 17:39; Status DC Artificial Tears (Artificial Tears) 1 drop TID PRN PRN OU DRY EYE; Start at 05:30 Famotidine (Pepcid) 20 mg DAILY PO Last administered on 03/10/18 09:00; Start 02/22/18 at 09:00 Guaifenesin (Robitussin Dm) 10 ml PRN Q4HRS PRN PO COUGH; Start 02/22/18 at 05: 30 Hydrocortisone Acetate (Anucort-Hc) 25 mg PRN Q12HR PRN [place] RECTAL PAIN; Start 02/22/18 at 05:30 Levetiracetam (Keppra) 500 mg BID PO Last administered on 03/10/18 19:31; Start 02/22/18 at 09:00 Loperamide HCl (Imodium) 2 mg PRN Q4HRS PRN PO DIARRHEA; Start 02/22/18 at 05: 30 Ondansetron HCl (Zofran Odt) 4 mg PRN Q4HRS PRN PO NAUSEA/VOMITING; Start 02/22 at 05:30 Pioglitazone HCl (Actos) 15 mg DAILY PO Last administered on 5/31/18at 09:00; Start 02/22/18 at 09:00 Multi-Ingredient Ointment (Analgesic [place]) 1 sam PRN QID PRN TP MUSCLE PAIN; Start 02/22/18 at 05:00 Insulin Human Lispro (HumaLOG) TIDWMEALHC SQ Last administered on 03/10/18 19 :34; Start 02/22/18 at 08:00 Mirtazapine (Remeron) 7.5 mg QHS PO Last administered on 03/10/18 19:32; Start 02/22/18 at 21:00 Risperidone (RisperDAL) 0.375 mg BID PO Last administered on 02/26/18at 11:50; Start 02/23/18 at 21:00; Stop 02/26/18 at 19:49; Status DC Olanzapine (ZyPREXA ZYDIS) 5 mg PRN Q2HR PRN PO PSYCHOSIS Last administered on 03/09/18 18:48; Start 02/23/18 at 19:45 Divalproex Sodium (Depakote Sprinkles) 125 mg TID@0900,1300,1700 PO Last administered on 03/01/18 17:39; Start 02/26/18 at 09:00; Stop 03/01/18 at 18:29 ; Status DC Risperidone (RisperDAL) 0.5 mg BID PO Last administered on 03/01/18at 10:17; Start 02/26/18 at 21:00; Stop 03/01/18 at 18:29; Status DC Divalproex Sodium (Depakote Sprinkles) 250 mg TID@0900,1300,1700 PO Last administered on 03/04/18at 17:59; Start 03/02/18 at 09:00; Stop 03/04/18 at 19:22 ; Status DC Risperidone (RisperDAL) 0.75 mg BID PO Last administered on 03/10/18 19:32; Start 03/01/18 at 21:00 Divalproex Sodium (Depakote Er) 1,000 mg QHS PO Last administered on 03/06/18 19:17; Start 03/04/18 at 21:00; Stop 03/07/18 at 19:54; Status DC Divalproex Sodium (Depakote Er) 1,000 mg QHS PO Last administered on 03/10/18at 19:31; Start 03/07/18 at 21:00 Divalproex Sodium (Depakote Er) 250 mg QHS PO Last administered on 03/10/18at 19 :31; Start 03/07/18 at 21:00 Active Scripts Active Reported Novolog Flexpen (Insulin Aspart) 100 Unit/1 Ml Insuln.pen 2-10 Units SQ TIDWMEALHC Risperdal (Risperidone) 0.25 Mg Tablet 0.25 Mg BID Cymbalta (Duloxetine Hcl) 60 Mg Capsule.dr 60 Mg PO DAILY Famotidine 20 Mg Tablet 20 Mg PO BID Mag-Al Plus Xs Suspension (Mag Hydrox/Al Hydrox/Simeth) 30 Ml Oral.susp 15 Ml PO PRN AFTMEALHC PRN Celebrex (Celecoxib) 100 Mg Capsule 100 Mg PO BID Vitamin C (Ascorbate Calcium) 500 Mg Tablet 500 Mg PO DAILY Robitussin Cough-Chest Dm Liq (Guaifenesin/Dextromethorphan) 237 Ml Liquid 10 Ml PO PRN Q4HRS PRN Percocet 10-325 Mg Tablet (Oxycodone Hcl/Acetaminophen) 1 Each Tablet 1 Tab PO PRN Q4HRS PRN Percocet 10-325 Mg Tablet (Oxycodone Hcl/Acetaminophen) 1 Each Tablet 1 Tab PO BID Ondansetron Hcl 4 Mg Tablet 4 Mg PO PRN Q4HRS PRN Nystatin 15 Gm Powder 1 Sam TP PRN TID PRN Nitrostat (Nitroglycerin) 0.4 Mg Tab.subl 0.4 Mg SL PRN Q5MIN PRN MDD 3tabs Melatonin 5 Mg Tablet (Melatonin/Pyridoxine) 1 Each Tablet 6 Mg PO QHS Loperamide (Loperamide Hcl) 2 Mg Tablet 2 Mg PO PRN Q4HRS PRN MDD 16mg Keppra (Levetiracetam) 500 Mg Tablet 500 Mg PO BID Ferrous Sulfate 325 Mg Tablet 325 Mg PO DAILY Neurontin (Gabapentin) 300 Mg Capsule 300 Mg PO TID Voltaren (Diclofenac Sodium) 100 Gm Gel..gram. 4 Gm TP PRN QID PRN Budesonide 0.5 Mg/2 Ml Ampul.neb 0.5 Mg NEB PRN BID PRN Dicyclomine Hcl 10 Mg Capsule 10 Mg PO PRN Q8HRS PRN Artificial Tears Eye Drops (Dextran 70/Hypromellose) 15 Ml Drops 1 Drop OU TID PRN Anusol-Hc (Hydrocortisone Acetate) 25 Mg Supp.rect 25 Mg RC PRN Q12HR PRN Anusol-Hc (Hydrocortisone) 30 Gm Cream..g. 1 Sam RC PRN Q24HRS PRN Norvasc (Amlodipine Besylate) 10 Mg Tablet 10 Mg PO DAILY Alprazolam 0.5 Mg Tablet 0.5 Mg PO HS Tylenol (Acetaminophen) 325 Mg Tablet 650 Mg PO PRN Q6HRS PRN Albuterol Sulfate Neb Soln (Albuterol Sulfate) 2.5 Mg/3 Ml Vial.neb 2.5 Mg NEB PRN Q4HRS PRN Milk Of Magnesia (Magnesium Hydroxide) 400 Mg/5 Ml Oral.susp 2,400 Mg PO PRN QHS PRN Actos (Pioglitazone Hcl) 15 Mg Tablet 15 Mg PO DAILYWBKFT I have reviewed the current psychotropics carefully including drug interactions. Risk benefit ratio favors no change other than as noted in my dictated progress note. Diagnosis: Problems: (1) Anxiety disorder (2) Impulse control disorder (3) Major depressive disorder, recurrent episode (4) Mild cognitive impairment BEA SAWANT MD March 10, 2018 20:41
[2018-03-11 06:07] VITALS: BP 151/82
[2018-03-11] MEDS: INSULIN LISPRO 300 UNITS/3 ML INSULN.PEN. SQ SCH ×4 (08:00→19:52)
[2018-03-11] MEDS: DULoxetine HCL 60 MG CAPSULE.DR PO SCH (09:06)
[2018-03-11] MEDS: risperiDONE 0.25 MG TABLET. PO SCH ×2 (09:07→19:46)
[2018-03-11] MEDS: PIOGLITAZONE 15 MG TABLET. PO SCH (09:07)
[2018-03-11] MEDS: FERROUS SULFATE 325 MG TABLET. PO SCH (09:07)
[2018-03-11] MEDS: levETIRAcetam 500 MG TABLET PO SCH ×2 (09:07→19:46)
[2018-03-11] MEDS: amLODIPine BESYLATE 10 MG TABLET PO SCH (09:07)
[2018-03-11] MEDS: ASCORBIC ACID 500 MG TABLET PO SCH (09:08)
[2018-03-11] MEDS: GABAPENTIN 300 MG CAPSULE. PO SCH ×2 (09:08→19:46)
[2018-03-11] MEDS: FAMOTIDINE 20 MG TABLET PO SCH (09:10)
[2018-03-11] MEDS: oxyCODONE/APAP 10/325 1 TAB TABLET PO SCH ×2 (09:10→19:50)
[2018-03-11] MEDS: BUDESONIDE 0.5 MG/2 ML NEBU NEB SCH ×2 (11:02→20:10)
[2018-03-11] MEDS: oxyCODONE/APAP 10/325 1 TAB TABLET PO PRN (15:35)
[2018-03-11 16:05] VITALS: BP 170/91
[2018-03-11] MEDS: ACETAMINOPHEN 325 MG TABLET PO PRN (17:24)
[2018-03-11] MEDS: MIRTAZAPINE 7.5 MG TABLET. PO SCH (19:46)
[2018-03-11] MEDS: MELATONIN 3 MG TABLET PO SCH (19:46)
[2018-03-11] MEDS: DIVALPROEX ER 250 MG TAB.ER.24H. PO SCH (19:46)
[2018-03-11] MEDS: DIVALPROEX ER 500 MG TAB.ER.24H PO SCH (19:47)
[2018-03-11] MEDS: ALPRAZolam 0.5 MG TABLET PO SCH (19:50)
--- NOTE | 2018-03-11 20:42 | PDOC ---
Exam Note: Neal Note: Please also refer to the separate dictated note~for this date of service dictated separately.~Patient seen individually. Discussed the patient with Nursing staff reviewed the chart.~Reviewed interim history and current functioning. Reviewed vital signs,~Labs/ Radiology~and current medications noted below. Continue current treatment with the changes noted in the dictated addendum note Assessment: Vital Signs: Vital Signs Date Time Temp Pulse Resp B/P (MAP) Pulse Ox O2 Delivery O2 Flow Rate FiO2 03/11/18 20:10 99 Room Air 03/11/18 16:05 98.0 92 18 170/91 (117) I&O Intake and Output 03/11/18 07:00 Intake Total 600 ml Balance 600 ml Intake Oral 600 ml Labs: Laboratory Tests Test 03/11/18 07:40 03/11/18 11:31 03/11/18 16:29 03/11/18 19:09 Glucose (Fingerstick) 109 mg/dL (70-99) H 108 mg/dL (70-99) H 207 mg/dL (70-99) H 295 mg/dL (70-99) H Current Medications: Meds: Current Medications Acetaminophen (Tylenol) 1,000 mg 1X ONCE PO Last administered on 02/22/18at 03: 05; Start 02/22/18 at 03:30; Stop 02/22/18 at 03:31; Status DC Alprazolam (Xanax) 0.5 mg QHS PO Last administered on 03/11/18at 19:50; Start at 21:00 Duloxetine HCl (Cymbalta) 60 mg DAILY PO Last administered on 03/11/18at 09:06; Start 02/22/18 at 09:00 Melatonin 6 mg QHS PO Last administered on 03/11/18at 19:46; Start 02/22/18 at 21 :00 Risperidone (RisperDAL) 0.25 mg BID PO Last administered on 02/23/18at 08:51; Start 02/22/18 at 09:00; Stop 02/23/18 at 13:23; Status DC Acetaminophen (Tylenol) 650 mg PRN Q6HRS PRN PO PAIN / TEMP Last administered on 03/11/18at 17:24; Start 02/22/18 at 05:00 Albuterol Sulfate (Ventolin) 2.5 mg PRN Q4HRS PRN NEB Dyspnea; Start 02/22/18 at 05:00 Diclofenac Sodium (Voltaren) 4 sam PRN QID PRN TP R Knee Pain; Start 02/22/18 at 05:00 Dicyclomine HCl (Bentyl) 10 mg PRN Q8HRS PRN PO Bowel Cramps; Start 02/22/18 at 05:00 Ferrous Sulfate (Feosol) 325 mg DAILY PO Last administered on 03/11/18at 09:07; Start 02/22/18 at 09:00 Gabapentin (Neurontin) 300 mg BID PO Last administered on 03/11/18at 19:46; Start 02/22/18 at 09:00 Hydrocortisone (Proctosol-Hc) 1 sam PRN Q24HRS PRN RC Hemorrhoids; Start at 05:00 Insulin Aspart (NovoLOG) BS 200-2,50= 2 un... TIDWMEALHC SQ ; Start 02/22/18 at 08:00; Stop 02/22/18 at 08:01; Status DC Al Hydroxide/Mg Hydroxide (Mylanta Plus Xs) 15 ml PRN AFTMEALHC PRN PO DYSPEPSIA; Start 02/22/18 at 05:00 Magnesium Hydroxide (Milk Of Magnesia) 2,400 mg PRN QHS PRN PO CONSTIPATION Last administered on 02/26/18at 21:15; Start 02/22/18 at 05:00 Nitroglycerin (Nitrostat) 0.4 mg PRN Q5MIN PRN SL CHEST PAIN; Start 02/22/18 at 05:00 Nystatin (Nystop) 1 sam PRN TID PRN TP REDNESS; Start 02/22/18 at 05:00 Oxycodone/ Acetaminophen (Percocet 10/325) 1 tab BID PO Last administered on 03/11/18at 19:50; Start 02/22/18 at 09:00 Oxycodone/ Acetaminophen (Percocet 10/325) 1 tab PRN Q4HRS PRN PO PAIN Last administered on 03/11/18at 15:35; Start 02/22/18 at 05:00 Amlodipine Besylate (Norvasc) 10 mg DAILY PO Last administered on 03/11/18at 09: 07; Start 02/22/18 at 09:00 Ascorbic Acid (Vitamin C) 500 mg DAILY PO Last administered on 03/11/18at 09:08; Start 02/22/18 at 09:00 Budesonide (Pulmicort) 0.5 mg RTBID NEB Last administered on 03/11/18at 20:10; Start 02/22/18 at 08:00 Celecoxib (CeleBREX) 100 mg BID PO Last administered on 03/04/18at 07:58; Start 02/22/18 at 09:00; Stop 03/04/18 at 17:39; Status DC Artificial Tears (Artificial Tears) 1 drop TID PRN PRN OU DRY EYE; Start at 05:30 Famotidine (Pepcid) 20 mg DAILY PO Last administered on 03/11/18at 09:10; Start 02/22/18 at 09:00 Guaifenesin (Robitussin Dm) 10 ml PRN Q4HRS PRN PO COUGH; Start 02/22/18 at 05: 30 Hydrocortisone Acetate (Anucort-Hc) 25 mg PRN Q12HR PRN [place] RECTAL PAIN; Start 02/22/18 at 05:30 Levetiracetam (Keppra) 500 mg BID PO Last administered on 03/11/18 19:46; Start 02/22/18 at 09:00 Loperamide HCl (Imodium) 2 mg PRN Q4HRS PRN PO DIARRHEA; Start 02/22/18 at 05: 30 Ondansetron HCl (Zofran Odt) 4 mg PRN Q4HRS PRN PO NAUSEA/VOMITING; Start 02/22 at 05:30 Pioglitazone HCl (Actos) 15 mg DAILY PO Last administered on 03/11/18at 09:07; Start 02/22/18 at 09:00 Multi-Ingredient Ointment (Analgesic [place]) 1 sam PRN QID PRN TP MUSCLE PAIN; Start 02/22/18 at 05:00 Insulin Human Lispro (HumaLOG) TIDWMEALHC SQ Last administered on 03/11/18at 19: 52; Start 02/22/18 at 08:00 Mirtazapine (Remeron) 7.5 mg QHS PO Last administered on 03/11/18at 19:46; Start 02/22/18 at 21:00 Risperidone (RisperDAL) 0.375 mg BID PO Last administered on 02/26/18at 11:50; Start 02/23/18 at 21:00; Stop 02/26/18 at 19:49; Status DC Olanzapine (ZyPREXA ZYDIS) 5 mg PRN Q2HR PRN PO PSYCHOSIS Last administered on 03/11/18at 15:34; Start 02/23/18 at 19:45 Divalproex Sodium (Depakote Sprinkles) 125 mg TID@0900,1300,1700 PO Last administered on 03/01/18at 17:39; Start 02/26/18 at 09:00; Stop 03/01/18 at 18:29 ; Status DC Risperidone (RisperDAL) 0.5 mg BID PO Last administered on 03/01/18at 10:17; Start 02/26/18 at 21:00; Stop 03/01/18 at 18:29; Status DC Divalproex Sodium (Depakote Sprinkles) 250 mg TID@0900,1300,1700 PO Last administered on 03/04/18at 17:59; Start 03/02/18 at 09:00; Stop 03/04/18 at 19:22 ; Status DC Risperidone (RisperDAL) 0.75 mg BID PO Last administered on 03/11/18 19:46; Start 03/01/18 at 21:00 Divalproex Sodium (Depakote Er) 1,000 mg QHS PO Last administered on 03/06/18at 19:17; Start 03/04/18 at 21:00; Stop 03/07/18 at 19:54; Status DC Divalproex Sodium (Depakote Er) 1,000 mg QHS PO Last administered on 03/11/18 19:47; Start 03/07/18 at 21:00 Divalproex Sodium (Depakote Er) 250 mg QHS PO Last administered on 03/11/18 19: 46; Start 03/07/18 at 21:00 Active Scripts Active Reported Novolog Flexpen (Insulin Aspart) 100 Unit/1 Ml Insuln.pen 2-10 Units SQ TIDWMEALHC Risperdal (Risperidone) 0.25 Mg Tablet 0.25 Mg BID Cymbalta (Duloxetine Hcl) 60 Mg Capsule.dr 60 Mg PO DAILY Famotidine 20 Mg Tablet 20 Mg PO BID Mag-Al Plus Xs Suspension (Mag Hydrox/Al Hydrox/Simeth) 30 Ml Oral.susp 15 Ml PO PRN AFTMEALHC PRN Celebrex (Celecoxib) 100 Mg Capsule 100 Mg PO BID Vitamin C (Ascorbate Calcium) 500 Mg Tablet 500 Mg PO DAILY Robitussin Cough-Chest Dm Liq (Guaifenesin/Dextromethorphan) 237 Ml Liquid 10 Ml PO PRN Q4HRS PRN Percocet 10-325 Mg Tablet (Oxycodone Hcl/Acetaminophen) 1 Each Tablet 1 Tab PO PRN Q4HRS PRN Percocet 10-325 Mg Tablet (Oxycodone Hcl/Acetaminophen) 1 Each Tablet 1 Tab PO BID Ondansetron Hcl 4 Mg Tablet 4 Mg PO PRN Q4HRS PRN Nystatin 15 Gm Powder 1 Sam TP PRN TID PRN Nitrostat (Nitroglycerin) 0.4 Mg Tab.subl 0.4 Mg SL PRN Q5MIN PRN MDD 3tabs Melatonin 5 Mg Tablet (Melatonin/Pyridoxine) 1 Each Tablet 6 Mg PO QHS Loperamide (Loperamide Hcl) 2 Mg Tablet 2 Mg PO PRN Q4HRS PRN MDD 16mg Keppra (Levetiracetam) 500 Mg Tablet 500 Mg PO BID Ferrous Sulfate 325 Mg Tablet 325 Mg PO DAILY Neurontin (Gabapentin) 300 Mg Capsule 300 Mg PO TID Voltaren (Diclofenac Sodium) 100 Gm Gel..gram. 4 Gm TP PRN QID PRN Budesonide 0.5 Mg/2 Ml Ampul.neb 0.5 Mg NEB PRN BID PRN Dicyclomine Hcl 10 Mg Capsule 10 Mg PO PRN Q8HRS PRN Artificial Tears Eye Drops (Dextran 70/Hypromellose) 15 Ml Drops 1 Drop OU TID PRN Anusol-Hc (Hydrocortisone Acetate) 25 Mg Supp.rect 25 Mg RC PRN Q12HR PRN Anusol-Hc (Hydrocortisone) 30 Gm Cream..g. 1 Sam RC PRN Q24HRS PRN Norvasc (Amlodipine Besylate) 10 Mg Tablet 10 Mg PO DAILY Alprazolam 0.5 Mg Tablet 0.5 Mg PO HS Tylenol (Acetaminophen) 325 Mg Tablet 650 Mg PO PRN Q6HRS PRN Albuterol Sulfate Neb Soln (Albuterol Sulfate) 2.5 Mg/3 Ml Vial.neb 2.5 Mg NEB PRN Q4HRS PRN Milk Of Magnesia (Magnesium Hydroxide) 400 Mg/5 Ml Oral.susp 2,400 Mg PO PRN QHS PRN Actos (Pioglitazone Hcl) 15 Mg Tablet 15 Mg PO DAILYWBKFT I have reviewed the current psychotropics carefully including drug interactions. Risk benefit ratio favors no change other than as noted in my dictated progress note. Diagnosis: Problems: (1) Anxiety disorder (2) Impulse control disorder (3) Major depressive disorder, recurrent episode (4) Mild cognitive impairment BEA SAWANT MD Mar 11, 2018 20:42
[2018-03-12 06:17] VITALS: BP 147/80
[2018-03-12] MEDS: PIOGLITAZONE 15 MG TABLET. PO SCH (07:35)
[2018-03-12] MEDS: ASCORBIC ACID 500 MG TABLET PO SCH (07:36)
[2018-03-12] MEDS: GABAPENTIN 300 MG CAPSULE. PO SCH ×2 (07:36→19:16)
[2018-03-12] MEDS: levETIRAcetam 500 MG TABLET PO SCH ×2 (07:36→19:16)
[2018-03-12] MEDS: DULoxetine HCL 60 MG CAPSULE.DR PO SCH (07:36)
[2018-03-12] MEDS: FAMOTIDINE 20 MG TABLET PO SCH (07:36)
[2018-03-12] MEDS: amLODIPine BESYLATE 10 MG TABLET PO SCH (07:36)
[2018-03-12] MEDS: FERROUS SULFATE 325 MG TABLET. PO SCH (07:36)
[2018-03-12] MEDS: risperiDONE 0.25 MG TABLET. PO SCH ×2 (07:37→19:17)
[2018-03-12] MEDS: oxyCODONE/APAP 10/325 1 TAB TABLET PO SCH ×2 (07:37→19:16)
[2018-03-12] MEDS: INSULIN LISPRO 300 UNITS/3 ML INSULN.PEN. SQ SCH ×4 (08:07→19:29)
[2018-03-12] MEDS: BUDESONIDE 0.5 MG/2 ML NEBU NEB SCH ×2 (10:42→20:38)
--- NOTE | 2018-03-12 14:38 | PN ---
DATE: 03/09/2018 This is a late entry 03/09/2018 covers the elements not covered in my initial note 03/09/2018. SUBJECTIVE: I met with the patient in the evening. The patient is compliant with her medications, slept 7-1/2 hours, was quite agitated, combative in the evening, had to be removed from the dining room and placed in the West hallway away from other stimuli and then throwing herself on the floor. At lunchtime, she was yelling at another patient. REVIEW OF SYSTEMS: Ambulation impaired, in wheelchair. No CV, , pulmonary, eye system symptoms on review. MENTAL STATUS EXAM: Oriented to herself and situation. Speech moderate latency, often responses monosyllabic. Abstraction fair, computation impaired, language function intact, attention span short. Mood and affect somewhat withdrawn, less psychotic. LABORATORY DATA: Reviewed. IMPRESSION: Major depressive disorder with psychotic features, schizoaffective disorder, bipolar type, mixed with psychotic features versus bipolar 1 disorder, mixed with psychotic features, in partial remission; cognitive disorder, unspecified. PLAN: Continue with psychotropics mentioned in my initial note. Check labs and valproic acid level 03/10/2018. Adjust thereafter. BEA SAWANT MD DR: MARK/daphne JOB#: [id number] / [id number]
--- NOTE | 2018-03-12 14:42 | PN ---
DATE: 03/10/2018 PSYCHIATRIC PROGRESS NOTE This is a late entry for 03/10/2018, covers elements not covered in my initial note of 03/10/2018. SUBJECTIVE: I met with the patient in the evening and staffed at a treatment team meeting with the entire team in the morning. The patient remains somewhat withdrawn, irritable, labile at times. Valproic acid level on 03/10/2018 at 73. REVIEW OF SYSTEMS: Ambulation impaired, in wheelchair. No CV, , pulmonary, eye, ENT system symptoms on review. MENTAL STATUS EXAM: Oriented to herself and situation. Speech is coherent, has some latency. Abstraction fair, computation impaired, language function intact, attention span short. Mood and affect somewhat withdrawn. LABORATORY DATA: Reviewed. IMPRESSION: Unchanged from initial note. Valproic acid level therapeutic at 73. PLAN: Continue Depakote at current dosage together with Risperdal, Xanax, Cymbalta, melatonin, Remeron, Zyprexa p.r.n. BEA SAWANT MD DR: MARK/daphne JOB#: [id number] / [id number]
[2018-03-12 16:39] VITALS: BP 147/70
[2018-03-12] MEDS: MELATONIN 3 MG TABLET PO SCH (19:15)
[2018-03-12] MEDS: MIRTAZAPINE 7.5 MG TABLET. PO SCH (19:16)
[2018-03-12] MEDS: DIVALPROEX ER 500 MG TAB.ER.24H PO SCH (19:16)
[2018-03-12] MEDS: DIVALPROEX ER 250 MG TAB.ER.24H. PO SCH (19:18)
--- NOTE | 2018-03-12 22:07 | PDOC ---
Exam Note: Neal Note: Please also refer to the separate dictated note~for this date of service dictated separately.~Patient seen individually. Discussed the patient with Nursing staff reviewed the chart.~Reviewed interim history and current functioning. Reviewed vital signs,~Labs/ Radiology~and current medications noted below. Continue current treatment with the changes noted in the dictated addendum note Assessment: Vital Signs: Vital Signs Date Time Temp Pulse Resp B/P (MAP) Pulse Ox O2 Delivery O2 Flow Rate FiO2 03/12/18 20:40 98 Room Air 03/12/18 16:39 97.6 93 18 147/70 (95) I&O Intake and Output 03/12/18 07:00 Intake Total 720 ml Balance 720 ml Intake Oral 720 ml # Bowel Movements 2 Labs: Laboratory Tests Test 03/12/18 07:41 03/12/18 11:42 03/12/18 16:51 Glucose (Fingerstick) 189 mg/dL (70-99) H 255 mg/dL (70-99) H 206 mg/dL (70-99) H Current Medications: Meds: Current Medications Acetaminophen (Tylenol) 1,000 mg 1X ONCE PO Last administered on 02/22/18at 03: 05; Start 02/22/18 at 03:30; Stop 02/22/18 at 03:31; Status DC Alprazolam (Xanax) 0.5 mg QHS PO Last administered on 03/11/18at 19:50; Start at 21:00; Stop 03/12/18 at 18:14; Status DC Duloxetine HCl (Cymbalta) 60 mg DAILY PO Last administered on 03/12/18at 07:36; Start 02/22/18 at 09:00 Melatonin 6 mg QHS PO Last administered on 03/12/18at 19:15; Start 02/22/18 at 21 :00 Risperidone (RisperDAL) 0.25 mg BID PO Last administered on 02/23/18at 08:51; Start 02/22/18 at 09:00; Stop 02/23/18 at 13:23; Status DC Acetaminophen (Tylenol) 650 mg PRN Q6HRS PRN PO PAIN / TEMP Last administered on 03/11/18at 17:24; Start 02/22/18 at 05:00 Albuterol Sulfate (Ventolin) 2.5 mg PRN Q4HRS PRN NEB Dyspnea; Start 02/22/18 at 05:00 Diclofenac Sodium (Voltaren) 4 sam PRN QID PRN TP R Knee Pain; Start 02/22/18 at 05:00 Dicyclomine HCl (Bentyl) 10 mg PRN Q8HRS PRN PO Bowel Cramps; Start 02/22/18 at 05:00 Ferrous Sulfate (Feosol) 325 mg DAILY PO Last administered on 03/12/18at 07:36; Start 02/22/18 at 09:00 Gabapentin (Neurontin) 300 mg BID PO Last administered on 03/12/18 19:16; Start 02/22/18 at 09:00 Hydrocortisone (Proctosol-Hc) 1 sam PRN Q24HRS PRN RC Hemorrhoids; Start at 05:00 Insulin Aspart (NovoLOG) BS 200-2,50= 2 un... TIDWMEALHC SQ ; Start 02/22/18 at 08:00; Stop 02/22/18 at 08:01; Status DC Al Hydroxide/Mg Hydroxide (Mylanta Plus Xs) 15 ml PRN AFTMEALHC PRN PO DYSPEPSIA; Start 02/22/18 at 05:00 Magnesium Hydroxide (Milk Of Magnesia) 2,400 mg PRN QHS PRN PO CONSTIPATION Last administered on 02/26/18at 21:15; Start 02/22/18 at 05:00 Nitroglycerin (Nitrostat) 0.4 mg PRN Q5MIN PRN SL CHEST PAIN; Start 02/22/18 at 05:00 Nystatin (Nystop) 1 sam PRN TID PRN TP REDNESS; Start 02/22/18 at 05:00 Oxycodone/ Acetaminophen (Percocet 10/325) 1 tab BID PO Last administered on 19:16; Start 02/22/18 at 09:00 Oxycodone/ Acetaminophen (Percocet 10/325) 1 tab PRN Q4HRS PRN PO PAIN Last administered on 03/11/18at 15:35; Start 02/22/18 at 05:00 Amlodipine Besylate (Norvasc) 10 mg DAILY PO Last administered on 03/12/18at 07: 36; Start 02/22/18 at 09:00 Ascorbic Acid (Vitamin C) 500 mg DAILY PO Last administered on 03/12/18 07:36; Start 02/22/18 at 09:00 Budesonide (Pulmicort) 0.5 mg RTBID NEB Last administered on 03/12/18at 20:38; Start 02/22/18 at 08:00 Celecoxib (CeleBREX) 100 mg BID PO Last administered on 03/04/18at 07:58; Start 02/22/18 at 09:00; Stop 03/04/18 at 17:39; Status DC Artificial Tears (Artificial Tears) 1 drop TID PRN PRN OU DRY EYE; Start at 05:30 Famotidine (Pepcid) 20 mg DAILY PO Last administered on 03/12/18at 07:36; Start 02/22/18 at 09:00 Guaifenesin (Robitussin Dm) 10 ml PRN Q4HRS PRN PO COUGH; Start 02/22/18 at 05: 30 Hydrocortisone Acetate (Anucort-Hc) 25 mg PRN Q12HR PRN [place] RECTAL PAIN; Start 02/22/18 at 05:30 Levetiracetam (Keppra) 500 mg BID PO Last administered on 03/12/18 19:16; Start 02/22/18 at 09:00 Loperamide HCl (Imodium) 2 mg PRN Q4HRS PRN PO DIARRHEA; Start 02/22/18 at 05: 30 Ondansetron HCl (Zofran Odt) 4 mg PRN Q4HRS PRN PO NAUSEA/VOMITING; Start 02/22 at 05:30 Pioglitazone HCl (Actos) 15 mg DAILY PO Last administered on 03/12/18at 07:35; Start 02/22/18 at 09:00 Multi-Ingredient Ointment (Analgesic [place]) 1 sam PRN QID PRN TP MUSCLE PAIN; Start 02/22/18 at 05:00 Insulin Human Lispro (HumaLOG) TIDWMEALHC SQ Last administered on 03/12/18at 19: 29; Start 02/22/18 at 08:00 Mirtazapine (Remeron) 7.5 mg QHS PO Last administered on 03/12/18 19:16; Start 02/22/18 at 21:00 Risperidone (RisperDAL) 0.375 mg BID PO Last administered on 02/26/18at 11:50; Start 02/23/18 at 21:00; Stop 02/26/18 at 19:49; Status DC Olanzapine (ZyPREXA ZYDIS) 5 mg PRN Q2HR PRN PO PSYCHOSIS Last administered on 03/12/18 11:30; Start 02/23/18 at 19:45 Divalproex Sodium (Depakote Sprinkles) 125 mg TID@0900,1300,1700 PO Last administered on 03/01/18at 17:39; Start 02/26/18 at 09:00; Stop 03/01/18 at 18:29 ; Status DC Risperidone (RisperDAL) 0.5 mg BID PO Last administered on 03/01/18at 10:17; Start 02/26/18 at 21:00; Stop 03/01/18 at 18:29; Status DC Divalproex Sodium (Depakote Sprinkles) 250 mg TID@0900,1300,1700 PO Last administered on 03/04/18at 17:59; Start 03/02/18 at 09:00; Stop 03/04/18 at 19:22 ; Status DC Risperidone (RisperDAL) 0.75 mg BID PO Last administered on 03/12/18 19:17; Start 03/01/18 at 21:00 Divalproex Sodium (Depakote Er) 1,000 mg QHS PO Last administered on 03/06/18 19:17; Start 03/04/18 at 21:00; Stop 03/07/18 at 19:54; Status DC Divalproex Sodium (Depakote Er) 1,000 mg QHS PO Last administered on 03/12/18 19:16; Start 03/07/18 at 21:00 Divalproex Sodium (Depakote Er) 250 mg QHS PO Last administered on 03/12/18 19: 18; Start 03/07/18 at 21:00 Alprazolam (Xanax) 0.25 mg QHS PO ; Start 03/13/18 at 21:00 Active Scripts Active Reported Novolog Flexpen (Insulin Aspart) 100 Unit/1 Ml Insuln.pen 2-10 Units SQ TIDWMEALHC Risperdal (Risperidone) 0.25 Mg Tablet 0.25 Mg BID Cymbalta (Duloxetine Hcl) 60 Mg Capsule.dr 60 Mg PO DAILY Famotidine 20 Mg Tablet 20 Mg PO BID Mag-Al Plus Xs Suspension (Mag Hydrox/Al Hydrox/Simeth) 30 Ml Oral.susp 15 Ml PO PRN AFTMEALHC PRN Celebrex (Celecoxib) 100 Mg Capsule 100 Mg PO BID Vitamin C (Ascorbate Calcium) 500 Mg Tablet 500 Mg PO DAILY Robitussin Cough-Chest Dm Liq (Guaifenesin/Dextromethorphan) 237 Ml Liquid 10 Ml PO PRN Q4HRS PRN Percocet 10-325 Mg Tablet (Oxycodone Hcl/Acetaminophen) 1 Each Tablet 1 Tab PO PRN Q4HRS PRN Percocet 10-325 Mg Tablet (Oxycodone Hcl/Acetaminophen) 1 Each Tablet 1 Tab PO BID Ondansetron Hcl 4 Mg Tablet 4 Mg PO PRN Q4HRS PRN Nystatin 15 Gm Powder 1 Sam TP PRN TID PRN Nitrostat (Nitroglycerin) 0.4 Mg Tab.subl 0.4 Mg SL PRN Q5MIN PRN MDD 3tabs Melatonin 5 Mg Tablet (Melatonin/Pyridoxine) 1 Each Tablet 6 Mg PO QHS Loperamide (Loperamide Hcl) 2 Mg Tablet 2 Mg PO PRN Q4HRS PRN MDD 16mg Keppra (Levetiracetam) 500 Mg Tablet 500 Mg PO BID Ferrous Sulfate 325 Mg Tablet 325 Mg PO DAILY Neurontin (Gabapentin) 300 Mg Capsule 300 Mg PO TID Voltaren (Diclofenac Sodium) 100 Gm Gel..gram. 4 Gm TP PRN QID PRN Budesonide 0.5 Mg/2 Ml Ampul.neb 0.5 Mg NEB PRN BID PRN Dicyclomine Hcl 10 Mg Capsule 10 Mg PO PRN Q8HRS PRN Artificial Tears Eye Drops (Dextran 70/Hypromellose) 15 Ml Drops 1 Drop OU TID PRN Anusol-Hc (Hydrocortisone Acetate) 25 Mg Supp.rect 25 Mg RC PRN Q12HR PRN Anusol-Hc (Hydrocortisone) 30 Gm Cream..g. 1 Sam RC PRN Q24HRS PRN Norvasc (Amlodipine Besylate) 10 Mg Tablet 10 Mg PO DAILY Alprazolam 0.5 Mg Tablet 0.5 Mg PO HS Tylenol (Acetaminophen) 325 Mg Tablet 650 Mg PO PRN Q6HRS PRN Albuterol Sulfate Neb Soln (Albuterol Sulfate) 2.5 Mg/3 Ml Vial.neb 2.5 Mg NEB PRN Q4HRS PRN Milk Of Magnesia (Magnesium Hydroxide) 400 Mg/5 Ml Oral.susp 2,400 Mg PO PRN QHS PRN Actos (Pioglitazone Hcl) 15 Mg Tablet 15 Mg PO [id number] I have reviewed the current psychotropics carefully including drug interactions. Risk benefit ratio favors no change other than as noted in my dictated progress note. Diagnosis: Problems: (1) Anxiety disorder (2) Impulse control disorder (3) Major depressive disorder, recurrent episode (4) Mild cognitive impairment BEA SAWANT MD Mar 12, 2018 22:07
[2018-03-13 05:52] VITALS: BP 152/86
[2018-03-13] MEDS: FAMOTIDINE 20 MG TABLET PO SCH (07:41)
[2018-03-13] MEDS: amLODIPine BESYLATE 10 MG TABLET PO SCH (07:41)
[2018-03-13] MEDS: PIOGLITAZONE 15 MG TABLET. PO SCH (07:41)
[2018-03-13] MEDS: levETIRAcetam 500 MG TABLET PO SCH ×2 (07:41→20:19)
[2018-03-13] MEDS: DULoxetine HCL 60 MG CAPSULE.DR PO SCH (07:41)
[2018-03-13] MEDS: ASCORBIC ACID 500 MG TABLET PO SCH (07:41)
[2018-03-13] MEDS: FERROUS SULFATE 325 MG TABLET. PO SCH (07:42)
[2018-03-13] MEDS: GABAPENTIN 300 MG CAPSULE. PO SCH ×2 (07:42→20:20)
[2018-03-13] MEDS: risperiDONE 0.25 MG TABLET. PO SCH ×2 (07:42→20:20)
[2018-03-13] MEDS: oxyCODONE/APAP 10/325 1 TAB TABLET PO SCH ×2 (07:44→20:20)
[2018-03-13] MEDS: INSULIN LISPRO 300 UNITS/3 ML INSULN.PEN. SQ SCH ×4 (08:02→20:24)
[2018-03-13] MEDS: BUDESONIDE 0.5 MG/2 ML NEBU NEB SCH ×2 (10:25→21:27)
[2018-03-13 11:18] LABS: FECAL OB PT NEGATIVE (NEG)
[2018-03-13 11:19] LABS: BACTERIA,URINE 0 /HPF (0-FEW); BILIRUBIN,URINE NEG (NEG); CLARITY,URINE HAZY; COLOR,URINE YELLOW; GLUCOSE,URINE NEG (NEG); NITRITE,URINE NEG (NEG); RBC,URINE 0 /HPF (0-2); SQUAMOUS EPITHELIAL CELL,UR FEW /LPF; UROBILINOGEN,URINE 0.2 mg/dL (0.2 mg/dL)
[2018-03-13 16:30] VITALS: BP 150/64
--- NOTE | 2018-03-13 19:58 | PDOC ---
Exam Note: Neal Note: Please also refer to the separate dictated note~for this date of service dictated separately.~Patient seen individually. Discussed the patient with Nursing staff reviewed the chart.~Reviewed interim history and current functioning. Reviewed vital signs,~Labs/ Radiology~and current medications noted below. Continue current treatment with the changes noted in the dictated addendum note Assessment: Vital Signs: Vital Signs Date Time Temp Pulse Resp B/P (MAP) Pulse Ox O2 Delivery O2 Flow Rate FiO2 03/13/18 16:30 98.0 86 16 150/64 (92) 97 03/13/18 10:26 Room Air I&O Intake and Output 03/13/18 07:00 Intake Total 960 ml Balance 960 ml Intake Oral 960 ml Labs: Laboratory Tests Test 03/13/18 07:23 03/13/18 10:44 03/13/18 11:42 03/13/18 16:56 Glucose (Fingerstick) 162 mg/dL (70-99) H 305 mg/dL (70-99) H 158 mg/dL (70-99) H Urine Collection Type Void Urine Color Yellow Urine Clarity Hazy Urine pH 5.5 Urine Specific [place] 1.015 Urine Protein 30 mg/dl (NEG-TRACE) Urine Glucose (UA) Neg mg/dL (NEG) Urine Ketones (Stick) Neg mg/dL (NEG) Urine Blood Neg (NEG) Urine Nitrite Neg (NEG) Urine Bilirubin Neg (NEG) Urine Urobilinogen Dipstick 0.2 mg/dL (0.2 mg/dL) Urine Leukocyte Esterase Neg (NEG) Urine RBC 0 /HPF (0-2) Urine WBC 1-4 /HPF (0-4) Urine Squamous Epithelial Cells Few /LPF Urine Bacteria 0 /HPF (0-FEW) Stool Occult Blood Negative (NEG) Current Medications: Meds: Current Medications Acetaminophen (Tylenol) 1,000 mg 1X ONCE PO Last administered on 02/22/18at 03: 05; Start 02/22/18 at 03:30; Stop 02/22/18 at 03:31; Status DC Alprazolam (Xanax) 0.5 mg QHS PO Last administered on 03/11/18at 19:50; Start at 21:00; Stop 03/12/18 at 18:14; Status DC Duloxetine HCl (Cymbalta) 60 mg DAILY PO Last administered on 03/13/18at 07:41; Start 02/22/18 at 09:00 Melatonin 6 mg QHS PO Last administered on 03/12/18at 19:15; Start 02/22/18 at 21 :00 Risperidone (RisperDAL) 0.25 mg BID PO Last administered on 02/23/18at 08:51; Start 02/22/18 at 09:00; Stop 02/23/18 at 13:23; Status DC Acetaminophen (Tylenol) 650 mg PRN Q6HRS PRN PO PAIN / TEMP Last administered on 03/11/18at 17:24; Start 02/22/18 at 05:00 Albuterol Sulfate (Ventolin) 2.5 mg PRN Q4HRS PRN NEB Dyspnea; Start 02/22/18 at 05:00 Diclofenac Sodium (Voltaren) 4 sam PRN QID PRN TP R Knee Pain; Start 02/22/18 at 05:00 Dicyclomine HCl (Bentyl) 10 mg PRN Q8HRS PRN PO Bowel Cramps; Start 02/22/18 at 05:00 Ferrous Sulfate (Feosol) 325 mg DAILY PO Last administered on 03/13/18at 07:42; Start 02/22/18 at 09:00 Gabapentin (Neurontin) 300 mg BID PO Last administered on 03/13/18at 07:42; Start 02/22/18 at 09:00 Hydrocortisone (Proctosol-Hc) 1 sam PRN Q24HRS PRN RC Hemorrhoids; Start at 05:00 Insulin Aspart (NovoLOG) BS 200-2,50= 2 un... TIDWMEALHC SQ ; Start 02/22/18 at 08:00; Stop 02/22/18 at 08:01; Status DC Al Hydroxide/Mg Hydroxide (Mylanta Plus Xs) 15 ml PRN AFTMEALHC PRN PO DYSPEPSIA; Start 02/22/18 at 05:00 Magnesium Hydroxide (Milk Of Magnesia) 2,400 mg PRN QHS PRN PO CONSTIPATION Last administered on 02/26/18at 21:15; Start 02/22/18 at 05:00 Nitroglycerin (Nitrostat) 0.4 mg PRN Q5MIN PRN SL CHEST PAIN; Start 02/22/18 at 05:00 Nystatin (Nystop) 1 sam PRN TID PRN TP REDNESS; Start 02/22/18 at 05:00 Oxycodone/ Acetaminophen (Percocet 10/325) 1 tab BID PO Last administered on 07:44; Start 02/22/18 at 09:00 Oxycodone/ Acetaminophen (Percocet 10/325) 1 tab PRN Q4HRS PRN PO PAIN Last administered on 03/11/18 15:35; Start 02/22/18 at 05:00 Amlodipine Besylate (Norvasc) 10 mg DAILY PO Last administered on 03/13/18 07: 41; Start 02/22/18 at 09:00 Ascorbic Acid (Vitamin C) 500 mg DAILY PO Last administered on 03/13/18 07:41; Start 02/22/18 at 09:00 Budesonide (Pulmicort) 0.5 mg RTBID NEB Last administered on 03/13/18 10:25; Start 02/22/18 at 08:00 Celecoxib (CeleBREX) 100 mg BID PO Last administered on 03/04/18 07:58; Start 02/22/18 at 09:00; Stop 03/04/18 at 17:39; Status DC Artificial Tears (Artificial Tears) 1 drop TID PRN PRN OU DRY EYE; Start at 05:30 Famotidine (Pepcid) 20 mg DAILY PO Last administered on 03/13/18 07:41; Start 02/22/18 at 09:00 Guaifenesin (Robitussin Dm) 10 ml PRN Q4HRS PRN PO COUGH; Start 02/22/18 at 05: 30 Hydrocortisone Acetate (Anucort-Hc) 25 mg PRN Q12HR PRN [place] RECTAL PAIN; Start 02/22/18 at 05:30 Levetiracetam (Keppra) 500 mg BID PO Last administered on 03/13/18 07:41; Start 02/22/18 at 09:00 Loperamide HCl (Imodium) 2 mg PRN Q4HRS PRN PO DIARRHEA; Start 02/22/18 at 05: 30 Ondansetron HCl (Zofran Odt) 4 mg PRN Q4HRS PRN PO NAUSEA/VOMITING; Start 02/22 at 05:30 Pioglitazone HCl (Actos) 15 mg DAILY PO Last administered on 03/13/18 07:41; Start 02/22/18 at 09:00 Multi-Ingredient Ointment (Analgesic [place]) 1 sam PRN QID PRN TP MUSCLE PAIN; Start 02/22/18 at 05:00 Insulin Human Lispro (HumaLOG) TIDWMEALHC SQ Last administered on 03/13/18 18: 25; Start 02/22/18 at 08:00 Mirtazapine (Remeron) 7.5 mg QHS PO Last administered on 03/12/18 19:16; Start 02/22/18 at 21:00 Risperidone (RisperDAL) 0.375 mg BID PO Last administered on 02/26/18 11:50; Start 02/23/18 at 21:00; Stop 02/26/18 at 19:49; Status DC Olanzapine (ZyPREXA ZYDIS) 5 mg PRN Q2HR PRN PO PSYCHOSIS Last administered on 03/13/18 07:44; Start 02/23/18 at 19:45 Divalproex Sodium (Depakote Sprinkles) 125 mg TID@0900,1300,1700 PO Last administered on 03/01/18 17:39; Start 02/26/18 at 09:00; Stop 03/01/18 at 18:29 ; Status DC Risperidone (RisperDAL) 0.5 mg BID PO Last administered on 03/01/18 10:17; Start 02/26/18 at 21:00; Stop 03/01/18 at 18:29; Status DC Divalproex Sodium (Depakote Sprinkles) 250 mg TID@0900,1300,1700 PO Last administered on 03/04/18 17:59; Start 03/02/18 at 09:00; Stop 03/04/18 at 19:22 ; Status DC Risperidone (RisperDAL) 0.75 mg BID PO Last administered on 03/13/18 07:42; Start 03/01/18 at 21:00; Stop 03/13/18 at 15:04; Status DC Divalproex Sodium (Depakote Er) 1,000 mg QHS PO Last administered on 5/27/18at 19:17; Start 03/04/18 at 21:00; Stop 03/07/18 at 19:54; Status DC Divalproex Sodium (Depakote Er) 1,000 mg QHS PO Last administered on 03/12/18at 19:16; Start 03/07/18 at 21:00 Divalproex Sodium (Depakote Er) 250 mg QHS PO Last administered on 03/12/18at 19: 18; Start 03/07/18 at 21:00 Alprazolam (Xanax) 0.25 mg QHS PO ; Start 03/13/18 at 21:00; Stop 03/27/18 at 23: 00 Risperidone (RisperDAL) 0.75 mg HS PO ; Start 03/13/18 at 21:00 Active Scripts Active Reported Novolog Flexpen (Insulin Aspart) 100 Unit/1 Ml Insuln.pen 2-10 Units SQ TIDWMEALHC Risperdal (Risperidone) 0.25 Mg Tablet 0.25 Mg BID Cymbalta (Duloxetine Hcl) 60 Mg Capsule.dr 60 Mg PO DAILY Famotidine 20 Mg Tablet 20 Mg PO BID Mag-Al Plus Xs Suspension (Mag Hydrox/Al Hydrox/Simeth) 30 Ml Oral.susp 15 Ml PO PRN AFTMEALHC PRN Celebrex (Celecoxib) 100 Mg Capsule 100 Mg PO BID Vitamin C (Ascorbate Calcium) 500 Mg Tablet 500 Mg PO DAILY Robitussin Cough-Chest Dm Liq (Guaifenesin/Dextromethorphan) 237 Ml Liquid 10 Ml PO PRN Q4HRS PRN Percocet 10-325 Mg Tablet (Oxycodone Hcl/Acetaminophen) 1 Each Tablet 1 Tab PO PRN Q4HRS PRN Percocet 10-325 Mg Tablet (Oxycodone Hcl/Acetaminophen) 1 Each Tablet 1 Tab PO BID Ondansetron Hcl 4 Mg Tablet 4 Mg PO PRN Q4HRS PRN Nystatin 15 Gm Powder 1 Sam TP PRN TID PRN Nitrostat (Nitroglycerin) 0.4 Mg Tab.subl 0.4 Mg SL PRN Q5MIN PRN MDD 3tabs Melatonin 5 Mg Tablet (Melatonin/Pyridoxine) 1 Each Tablet 6 Mg PO QHS Loperamide (Loperamide Hcl) 2 Mg Tablet 2 Mg PO PRN Q4HRS PRN MDD 16mg Keppra (Levetiracetam) 500 Mg Tablet 500 Mg PO BID Ferrous Sulfate 325 Mg Tablet 325 Mg PO DAILY Neurontin (Gabapentin) 300 Mg Capsule 300 Mg PO TID Voltaren (Diclofenac Sodium) 100 Gm Gel..gram. 4 Gm TP PRN QID PRN Budesonide 0.5 Mg/2 Ml Ampul.neb 0.5 Mg NEB PRN BID PRN Dicyclomine Hcl 10 Mg Capsule 10 Mg PO PRN Q8HRS PRN Artificial Tears Eye Drops (Dextran 70/Hypromellose) 15 Ml Drops 1 Drop OU TID PRN Anusol-Hc (Hydrocortisone Acetate) 25 Mg Supp.rect 25 Mg RC PRN Q12HR PRN Anusol-Hc (Hydrocortisone) 30 Gm Cream..g. 1 Sam RC PRN Q24HRS PRN Norvasc (Amlodipine Besylate) 10 Mg Tablet 10 Mg PO DAILY Alprazolam 0.5 Mg Tablet 0.5 Mg PO HS Tylenol (Acetaminophen) 325 Mg Tablet 650 Mg PO PRN Q6HRS PRN Albuterol Sulfate Neb Soln (Albuterol Sulfate) 2.5 Mg/3 Ml Vial.neb 2.5 Mg NEB PRN Q4HRS PRN Milk Of Magnesia (Magnesium Hydroxide) 400 Mg/5 Ml Oral.susp 2,400 Mg PO PRN QHS PRN Actos (Pioglitazone Hcl) 15 Mg Tablet 15 Mg PO [id number] I have reviewed the current psychotropics carefully including drug interactions. Risk benefit ratio favors no change other than as noted in my dictated progress note. Diagnosis: Problems: (1) Anxiety disorder (2) Impulse control disorder (3) Major depressive disorder, recurrent episode (4) Mild cognitive impairment BEA SAWANT MD Mar 13, 2018 19:58
[2018-03-13] MEDS: DIVALPROEX ER 500 MG TAB.ER.24H PO SCH (20:19)
[2018-03-13] MEDS: MIRTAZAPINE 7.5 MG TABLET. PO SCH (20:19)
[2018-03-13] MEDS: DIVALPROEX ER 250 MG TAB.ER.24H. PO SCH (20:20)
[2018-03-13] MEDS: MELATONIN 3 MG TABLET PO SCH (20:20)
[2018-03-13] MEDS: ALPRAZolam 0.25 MG TABLET PO SCH (20:22)
[2018-03-14 05:56] VITALS: BP 147/92
[2018-03-14] MEDS: INSULIN LISPRO 300 UNITS/3 ML INSULN.PEN. SQ SCH ×4 (08:00→21:19)
[2018-03-14] MEDS: amLODIPine BESYLATE 10 MG TABLET PO SCH (09:49)
[2018-03-14] MEDS: GABAPENTIN 300 MG CAPSULE. PO SCH ×2 (09:49→21:12)
[2018-03-14] MEDS: PIOGLITAZONE 15 MG TABLET. PO SCH (09:49)
[2018-03-14] MEDS: ASCORBIC ACID 500 MG TABLET PO SCH (09:49)
[2018-03-14] MEDS: levETIRAcetam 500 MG TABLET PO SCH ×2 (09:49→21:12)
[2018-03-14] MEDS: FERROUS SULFATE 325 MG TABLET. PO SCH (09:49)
[2018-03-14] MEDS: FAMOTIDINE 20 MG TABLET PO SCH (09:49)
[2018-03-14] MEDS: DULoxetine HCL 60 MG CAPSULE.DR PO SCH (09:50)
[2018-03-14] MEDS: oxyCODONE/APAP 10/325 1 TAB TABLET PO SCH ×2 (09:56→21:16)
[2018-03-14] MEDS: BUDESONIDE 0.5 MG/2 ML NEBU NEB SCH ×2 (11:11→20:18)
[2018-03-14 16:40] VITALS: BP 117/82
--- NOTE | 2018-03-14 20:52 | PDOC ---
Exam Note: Neal Note: Please also refer to the separate dictated note~for this date of service dictated separately.~Patient seen individually. Discussed the patient with Nursing staff reviewed the chart.~Reviewed interim history and current functioning. Reviewed vital signs,~Labs/ Radiology~and current medications noted below. Continue current treatment with the changes noted in the dictated addendum note Assessment: Vital Signs: Vital Signs Date Time Temp Pulse Resp B/P (MAP) Pulse Ox O2 Delivery O2 Flow Rate FiO2 03/14/18 16:40 97.1 90 16 117/82 (94) 97 Room Air I&O Intake and Output 03/14/18 07:00 Intake Total 1200 ml Balance 1200 ml Intake Oral 1200 ml # Bowel Movements 1 Labs: Laboratory Tests Test 03/14/18 07:51 03/14/18 11:55 03/14/18 16:48 03/14/18 19:04 Glucose (Fingerstick) 180 mg/dL (70-99) H 178 mg/dL (70-99) H 175 mg/dL (70-99) H 333 mg/dL (70-99) H Current Medications: Meds: Current Medications Acetaminophen (Tylenol) 1,000 mg 1X ONCE PO Last administered on 02/22/18 03: 05; Start 02/22/18 at 03:30; Stop 02/22/18 at 03:31; Status DC Alprazolam (Xanax) 0.5 mg QHS PO Last administered on 03/11/18 19:50; Start at 21:00; Stop 03/12/18 at 18:14; Status DC Duloxetine HCl (Cymbalta) 60 mg DAILY PO Last administered on 03/14/18at 09:50; Start 02/22/18 at 09:00 Melatonin 6 mg QHS PO Last administered on 03/13/18at 20:20; Start 02/22/18 at 21 :00 Risperidone (RisperDAL) 0.25 mg BID PO Last administered on 02/23/18at 08:51; Start 02/22/18 at 09:00; Stop 02/23/18 at 13:23; Status DC Acetaminophen (Tylenol) 650 mg PRN Q6HRS PRN PO PAIN / TEMP Last administered on 03/11/18at 17:24; Start 02/22/18 at 05:00 Albuterol Sulfate (Ventolin) 2.5 mg PRN Q4HRS PRN NEB Dyspnea; Start 02/22/18 at 05:00 Diclofenac Sodium (Voltaren) 4 sam PRN QID PRN TP R Knee Pain; Start 02/22/18 at 05:00 Dicyclomine HCl (Bentyl) 10 mg PRN Q8HRS PRN PO Bowel Cramps; Start 02/22/18 at 05:00 Ferrous Sulfate (Feosol) 325 mg DAILY PO Last administered on 03/14/18at 09:49; Start 02/22/18 at 09:00 Gabapentin (Neurontin) 300 mg BID PO Last administered on 03/14/18 09:49; Start 02/22/18 at 09:00 Hydrocortisone (Proctosol-Hc) 1 sam PRN Q24HRS PRN RC Hemorrhoids; Start at 05:00 Insulin Aspart (NovoLOG) BS 200-2,50= 2 un... TIDWMEALHC SQ ; Start 02/22/18 at 08:00; Stop 02/22/18 at 08:01; Status DC Al Hydroxide/Mg Hydroxide (Mylanta Plus Xs) 15 ml PRN AFTMEALHC PRN PO DYSPEPSIA; Start 02/22/18 at 05:00 Magnesium Hydroxide (Milk Of Magnesia) 2,400 mg PRN QHS PRN PO CONSTIPATION Last administered on 02/26/18at 21:15; Start 02/22/18 at 05:00 Nitroglycerin (Nitrostat) 0.4 mg PRN Q5MIN PRN SL CHEST PAIN; Start 02/22/18 at 05:00 Nystatin (Nystop) 1 sam PRN TID PRN TP REDNESS; Start 02/22/18 at 05:00 Oxycodone/ Acetaminophen (Percocet 10/325) 1 tab BID PO Last administered on 09:56; Start 02/22/18 at 09:00 Oxycodone/ Acetaminophen (Percocet 10/325) 1 tab PRN Q4HRS PRN PO PAIN Last administered on 03/11/18at 15:35; Start 02/22/18 at 05:00 Amlodipine Besylate (Norvasc) 10 mg DAILY PO Last administered on 03/14/18 09: 49; Start 02/22/18 at 09:00 Ascorbic Acid (Vitamin C) 500 mg DAILY PO Last administered on 03/14/18 09:49; Start 02/22/18 at 09:00 Budesonide (Pulmicort) 0.5 mg RTBID NEB Last administered on 03/14/18 11:11; Start 02/22/18 at 08:00 Celecoxib (CeleBREX) 100 mg BID PO Last administered on 03/04/18 07:58; Start 02/22/18 at 09:00; Stop 03/04/18 at 17:39; Status DC Artificial Tears (Artificial Tears) 1 drop TID PRN PRN OU DRY EYE; Start at 05:30 Famotidine (Pepcid) 20 mg DAILY PO Last administered on 03/14/18 09:49; Start 02/22/18 at 09:00 Guaifenesin (Robitussin Dm) 10 ml PRN Q4HRS PRN PO COUGH; Start 02/22/18 at 05: 30 Hydrocortisone Acetate (Anucort-Hc) 25 mg PRN Q12HR PRN [place] RECTAL PAIN; Start 02/22/18 at 05:30 Levetiracetam (Keppra) 500 mg BID PO Last administered on 03/14/18 09:49; Start 02/22/18 at 09:00 Loperamide HCl (Imodium) 2 mg PRN Q4HRS PRN PO DIARRHEA; Start 02/22/18 at 05: 30 Ondansetron HCl (Zofran Odt) 4 mg PRN Q4HRS PRN PO NAUSEA/VOMITING; Start 02/22 at 05:30 Pioglitazone HCl (Actos) 15 mg DAILY PO Last administered on 03/14/18 09:49; Start 02/22/18 at 09:00 Multi-Ingredient Ointment (Analgesic [place]) 1 sam PRN QID PRN TP MUSCLE PAIN; Start 02/22/18 at 05:00 Insulin Human Lispro (HumaLOG) TIDWMEALHC SQ Last administered on 03/13/18 20: 24; Start 02/22/18 at 08:00 Mirtazapine (Remeron) 7.5 mg QHS PO Last administered on 6/3/18at 20:19; Start 02/22/18 at 21:00 Risperidone (RisperDAL) 0.375 mg BID PO Last administered on 02/26/18at 11:50; Start 02/23/18 at 21:00; Stop 02/26/18 at 19:49; Status DC Olanzapine (ZyPREXA ZYDIS) 5 mg PRN Q2HR PRN PO PSYCHOSIS Last administered on 03/13/18 07:44; Start 02/23/18 at 19:45 Divalproex Sodium (Depakote Sprinkles) 125 mg TID@0900,1300,1700 PO Last administered on 03/01/18at 17:39; Start 02/26/18 at 09:00; Stop 03/01/18 at 18:29 ; Status DC Risperidone (RisperDAL) 0.5 mg BID PO Last administered on 03/01/18at 10:17; Start 02/26/18 at 21:00; Stop 03/01/18 at 18:29; Status DC Divalproex Sodium (Depakote Sprinkles) 250 mg TID@0900,1300,1700 PO Last administered on 03/04/18at 17:59; Start 03/02/18 at 09:00; Stop 03/04/18 at 19:22 ; Status DC Risperidone (RisperDAL) 0.75 mg BID PO Last administered on 03/13/18 07:42; Start 03/01/18 at 21:00; Stop 03/13/18 at 15:04; Status DC Divalproex Sodium (Depakote Er) 1,000 mg QHS PO Last administered on 03/06/18at 19:17; Start 03/04/18 at 21:00; Stop 03/07/18 at 19:54; Status DC Divalproex Sodium (Depakote Er) 1,000 mg QHS PO Last administered on 03/13/18 20:19; Start 03/07/18 at 21:00 Divalproex Sodium (Depakote Er) 250 mg QHS PO Last administered on 03/13/18 20: 20; Start 03/07/18 at 21:00 Alprazolam (Xanax) 0.25 mg QHS PO Last administered on 03/13/18at 20:22; Start at 21:00; Stop 03/27/18 at 23:00 Risperidone (RisperDAL) 0.75 mg HS PO Last administered on 03/13/18at 20:20; Start 03/13/18 at 21:00 Active Scripts Active Reported Novolog Flexpen (Insulin Aspart) 100 Unit/1 Ml Insuln.pen 2-10 Units SQ TIDWMEALHC Risperdal (Risperidone) 0.25 Mg Tablet 0.25 Mg BID Cymbalta (Duloxetine Hcl) 60 Mg Capsule.dr 60 Mg PO DAILY Famotidine 20 Mg Tablet 20 Mg PO BID Mag-Al Plus Xs Suspension (Mag Hydrox/Al Hydrox/Simeth) 30 Ml Oral.susp 15 Ml PO PRN AFTMEALHC PRN Celebrex (Celecoxib) 100 Mg Capsule 100 Mg PO BID Vitamin C (Ascorbate Calcium) 500 Mg Tablet 500 Mg PO DAILY Robitussin Cough-Chest Dm Liq (Guaifenesin/Dextromethorphan) 237 Ml Liquid 10 Ml PO PRN Q4HRS PRN Percocet 10-325 Mg Tablet (Oxycodone Hcl/Acetaminophen) 1 Each Tablet 1 Tab PO PRN Q4HRS PRN Percocet 10-325 Mg Tablet (Oxycodone Hcl/Acetaminophen) 1 Each Tablet 1 Tab PO BID Ondansetron Hcl 4 Mg Tablet 4 Mg PO PRN Q4HRS PRN Nystatin 15 Gm Powder 1 Sam TP PRN TID PRN Nitrostat (Nitroglycerin) 0.4 Mg Tab.subl 0.4 Mg SL PRN Q5MIN PRN MDD 3tabs Melatonin 5 Mg Tablet (Melatonin/Pyridoxine) 1 Each Tablet 6 Mg PO QHS Loperamide (Loperamide Hcl) 2 Mg Tablet 2 Mg PO PRN Q4HRS PRN MDD 16mg Keppra (Levetiracetam) 500 Mg Tablet 500 Mg PO BID Ferrous Sulfate 325 Mg Tablet 325 Mg PO DAILY Neurontin (Gabapentin) 300 Mg Capsule 300 Mg PO TID Voltaren (Diclofenac Sodium) 100 Gm Gel..gram. 4 Gm TP PRN QID PRN Budesonide 0.5 Mg/2 Ml Ampul.neb 0.5 Mg NEB PRN BID PRN Dicyclomine Hcl 10 Mg Capsule 10 Mg PO PRN Q8HRS PRN Artificial Tears Eye Drops (Dextran 70/Hypromellose) 15 Ml Drops 1 Drop OU TID PRN Anusol-Hc (Hydrocortisone Acetate) 25 Mg Supp.rect 25 Mg RC PRN Q12HR PRN Anusol-Hc (Hydrocortisone) 30 Gm Cream..g. 1 Sam RC PRN Q24HRS PRN Norvasc (Amlodipine Besylate) 10 Mg Tablet 10 Mg PO DAILY Alprazolam 0.5 Mg Tablet 0.5 Mg PO HS Tylenol (Acetaminophen) 325 Mg Tablet 650 Mg PO PRN Q6HRS PRN Albuterol Sulfate Neb Soln (Albuterol Sulfate) 2.5 Mg/3 Ml Vial.neb 2.5 Mg NEB PRN Q4HRS PRN Milk Of Magnesia (Magnesium Hydroxide) 400 Mg/5 Ml Oral.susp 2,400 Mg PO PRN QHS PRN Actos (Pioglitazone Hcl) 15 Mg Tablet 15 Mg PO DAILYWBKFT I have reviewed the current psychotropics carefully including drug interactions. Risk benefit ratio favors no change other than as noted in my dictated progress note. Diagnosis: Problems: (1) Anxiety disorder (2) Impulse control disorder (3) Major depressive disorder, recurrent episode (4) Mild cognitive impairment BEA SAWANT MD Mar 14, 2018 20:52
[2018-03-14] MEDS: DIVALPROEX ER 250 MG TAB.ER.24H. PO SCH (21:12)
[2018-03-14] MEDS: DIVALPROEX ER 500 MG TAB.ER.24H PO SCH (21:12)
[2018-03-14] MEDS: MELATONIN 3 MG TABLET PO SCH (21:12)
[2018-03-14] MEDS: risperiDONE 0.25 MG TABLET. PO SCH (21:12)
[2018-03-14] MEDS: MIRTAZAPINE 7.5 MG TABLET. PO SCH (21:12)
[2018-03-14] MEDS: ALPRAZolam 0.25 MG TABLET PO SCH (21:16)
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
[2018-03-15 06:11] VITALS: BP 141/70
[2018-03-15] MEDS: INSULIN LISPRO 300 UNITS/3 ML INSULN.PEN. SQ SCH ×5 (08:00→19:28)
[2018-03-15] MEDS: FERROUS SULFATE 325 MG TABLET. PO SCH (08:59)
[2018-03-15] MEDS: ASCORBIC ACID 500 MG TABLET PO SCH (08:59)
[2018-03-15] MEDS: levETIRAcetam 500 MG TABLET PO SCH ×2 (08:59→19:26)
[2018-03-15] MEDS: amLODIPine BESYLATE 10 MG TABLET PO SCH (08:59)
[2018-03-15] MEDS: DULoxetine HCL 60 MG CAPSULE.DR PO SCH (08:59)
[2018-03-15] MEDS: GABAPENTIN 300 MG CAPSULE. PO SCH ×2 (09:00→19:26)
[2018-03-15] MEDS: FAMOTIDINE 20 MG TABLET PO SCH (09:00)
[2018-03-15] MEDS: PIOGLITAZONE 15 MG TABLET. PO SCH (09:00)
[2018-03-15] MEDS: oxyCODONE/APAP 10/325 1 TAB TABLET PO SCH ×2 (09:00→19:27)
[2018-03-15] MEDS: BUDESONIDE 0.5 MG/2 ML NEBU NEB SCH ×2 (10:02→21:23)
--- NOTE | 2018-03-15 10:49 | PN ---
DATE: 03/13/2018 This late entry, 03/13/2018, covers elements not covered in my initial note of 03/13/2018. SUBJECTIVE: I met with the patient in the afternoon. The patient was quite agitated, slept through lunch time, threw herself on the floor on 2 occasions after supper. UA looks okay per nursing report. Report is awaited. Hemoccult is negative. REVIEW OF SYSTEMS: Ambulation impaired, in wheelchair. No CV, , pulmonary, eye, ENT system symptoms on review. MENTAL STATUS EXAM: Oriented to herself and situation. Speech is moderate latency, often responses monosyllabic. Abstraction fair, computation impaired, language function intact. Mood and affect is somewhat withdrawn. LABORATORY DATA: Reviewed. IMPRESSION: Unchanged from my initial note, major depressive disorder with psychotic features, bipolar 1 disorder probable mixed with psychotic features. PLAN: She has had some daytime sedation. We will reduce the Risperdal to bedtime dosage for a total of 1.5 mg. Continue rest unchanged. MAN Farrah SAWANT MD DR: MARK/daphne JOB#: [id number] / [id number]
[2018-03-15 16:57] VITALS: BP 150/74
[2018-03-15] MEDS: MELATONIN 3 MG TABLET PO SCH (19:26)
[2018-03-15] MEDS: ALPRAZolam 0.25 MG TABLET PO SCH (19:27)
[2018-03-15] MEDS: MIRTAZAPINE 7.5 MG TABLET. PO SCH (19:27)
--- NOTE | 2018-03-15 20:55 | PDOC ---
Exam Note: Neal Note: Please also refer to the separate dictated note~for this date of service dictated separately.~Patient seen individually. Discussed the patient with Nursing staff reviewed the chart.~Reviewed interim history and current functioning. Reviewed vital signs,~Labs/ Radiology~and current medications noted below. Continue current treatment with the changes noted in the dictated addendum note Assessment: Vital Signs: Vital Signs Date Time Temp Pulse Resp B/P (MAP) Pulse Ox O2 Delivery O2 Flow Rate FiO2 03/15/18 16:57 97.5 83 18 150/74 (99) 95 03/15/18 10:02 Room Air I&O Intake and Output 03/15/18 07:00 Intake Total 720 ml Balance 720 ml Intake Oral 720 ml Labs: Laboratory Tests Test 03/15/18 07:15 03/15/18 11:52 03/15/18 16:51 03/15/18 18:59 Glucose (Fingerstick) 158 mg/dL (70-99) H 235 mg/dL (70-99) H 141 mg/dL (70-99) H 158 mg/dL (70-99) H Current Medications: Meds: Current Medications Acetaminophen (Tylenol) 1,000 mg 1X ONCE PO Last administered on 02/22/18at 03: 05; Start 02/22/18 at 03:30; Stop 02/22/18 at 03:31; Status DC Alprazolam (Xanax) 0.5 mg QHS PO Last administered on 03/11/18at 19:50; Start at 21:00; Stop 03/12/18 at 18:14; Status DC Duloxetine HCl (Cymbalta) 60 mg DAILY PO Last administered on 03/15/18at 08:59; Start 02/22/18 at 09:00 Melatonin 6 mg QHS PO Last administered on 03/15/18 19:26; Start 02/22/18 at 21 :00 Risperidone (RisperDAL) 0.25 mg BID PO Last administered on 02/23/18at 08:51; Start 02/22/18 at 09:00; Stop 02/23/18 at 13:23; Status DC Acetaminophen (Tylenol) 650 mg PRN Q6HRS PRN PO PAIN / TEMP Last administered on 03/11/18at 17:24; Start 02/22/18 at 05:00 Albuterol Sulfate (Ventolin) 2.5 mg PRN Q4HRS PRN NEB Dyspnea; Start 02/22/18 at 05:00 Diclofenac Sodium (Voltaren) 4 sam PRN QID PRN TP R Knee Pain; Start 02/22/18 at 05:00 Dicyclomine HCl (Bentyl) 10 mg PRN Q8HRS PRN PO Bowel Cramps; Start 02/22/18 at 05:00 Ferrous Sulfate (Feosol) 325 mg DAILY PO Last administered on 03/15/18at 08:59; Start 02/22/18 at 09:00 Gabapentin (Neurontin) 300 mg BID PO Last administered on 03/15/18 19:26; Start 02/22/18 at 09:00 Hydrocortisone (Proctosol-Hc) 1 sam PRN Q24HRS PRN RC Hemorrhoids; Start at 05:00 Insulin Aspart (NovoLOG) BS 200-2,50= 2 un... TIDWMEALHC SQ ; Start 02/22/18 at 08:00; Stop 02/22/18 at 08:01; Status DC Al Hydroxide/Mg Hydroxide (Mylanta Plus Xs) 15 ml PRN AFTMEALHC PRN PO DYSPEPSIA; Start 02/22/18 at 05:00 Magnesium Hydroxide (Milk Of Magnesia) 2,400 mg PRN QHS PRN PO CONSTIPATION Last administered on 02/26/18at 21:15; Start 02/22/18 at 05:00 Nitroglycerin (Nitrostat) 0.4 mg PRN Q5MIN PRN SL CHEST PAIN; Start 02/22/18 at 05:00 Nystatin (Nystop) 1 sam PRN TID PRN TP REDNESS; Start 02/22/18 at 05:00 Oxycodone/ Acetaminophen (Percocet 10/325) 1 tab BID PO Last administered on 19:27; Start 02/22/18 at 09:00 Oxycodone/ Acetaminophen (Percocet 10/325) 1 tab PRN Q4HRS PRN PO PAIN Last administered on 03/11/18at 15:35; Start 02/22/18 at 05:00 Amlodipine Besylate (Norvasc) 10 mg DAILY PO Last administered on 03/15/18 08: 59; Start 02/22/18 at 09:00 Ascorbic Acid (Vitamin C) 500 mg DAILY PO Last administered on 03/15/18 08:59; Start 02/22/18 at 09:00 Budesonide (Pulmicort) 0.5 mg RTBID NEB Last administered on 03/15/18 10:02; Start 02/22/18 at 08:00 Celecoxib (CeleBREX) 100 mg BID PO Last administered on 03/04/18 07:58; Start 02/22/18 at 09:00; Stop 03/04/18 at 17:39; Status DC Artificial Tears (Artificial Tears) 1 drop TID PRN PRN OU DRY EYE; Start at 05:30 Famotidine (Pepcid) 20 mg DAILY PO Last administered on 03/15/18 09:00; Start 02/22/18 at 09:00 Guaifenesin (Robitussin Dm) 10 ml PRN Q4HRS PRN PO COUGH; Start 02/22/18 at 05: 30 Hydrocortisone Acetate (Anucort-Hc) 25 mg PRN Q12HR PRN [place] RECTAL PAIN; Start 02/22/18 at 05:30 Levetiracetam (Keppra) 500 mg BID PO Last administered on 03/15/18 19:26; Start 02/22/18 at 09:00 Loperamide HCl (Imodium) 2 mg PRN Q4HRS PRN PO DIARRHEA; Start 02/22/18 at 05: 30 Ondansetron HCl (Zofran Odt) 4 mg PRN Q4HRS PRN PO NAUSEA/VOMITING; Start 02/22 at 05:30 Pioglitazone HCl (Actos) 15 mg DAILY PO Last administered on 03/15/18 09:00; Start 02/22/18 at 09:00 Multi-Ingredient Ointment (Analgesic [place]) 1 sam PRN QID PRN TP MUSCLE PAIN; Start 02/22/18 at 05:00 Insulin Human Lispro (HumaLOG) TIDWMEALHC SQ Last administered on 03/14/18 21: 19; Start 02/22/18 at 08:00 Mirtazapine (Remeron) 7.5 mg QHS PO Last administered on 6/5/18at 19:27; Start 02/22/18 at 21:00 Risperidone (RisperDAL) 0.375 mg BID PO Last administered on 02/26/18at 11:50; Start 02/23/18 at 21:00; Stop 02/26/18 at 19:49; Status DC Olanzapine (ZyPREXA ZYDIS) 5 mg PRN Q2HR PRN PO PSYCHOSIS Last administered on 03/13/18 07:44; Start 02/23/18 at 19:45 Divalproex Sodium (Depakote Sprinkles) 125 mg TID@0900,1300,1700 PO Last administered on 03/01/18at 17:39; Start 02/26/18 at 09:00; Stop 03/01/18 at 18:29 ; Status DC Risperidone (RisperDAL) 0.5 mg BID PO Last administered on 03/01/18at 10:17; Start 02/26/18 at 21:00; Stop 03/01/18 at 18:29; Status DC Divalproex Sodium (Depakote Sprinkles) 250 mg TID@0900,1300,1700 PO Last administered on 03/04/18 17:59; Start 03/02/18 at 09:00; Stop 03/04/18 at 19:22 ; Status DC Risperidone (RisperDAL) 0.75 mg BID PO Last administered on 03/13/18 07:42; Start 03/01/18 at 21:00; Stop 03/13/18 at 15:04; Status DC Divalproex Sodium (Depakote Er) 1,000 mg QHS PO Last administered on 03/06/18 19:17; Start 03/04/18 at 21:00; Stop 03/07/18 at 19:54; Status DC Divalproex Sodium (Depakote Er) 1,000 mg QHS PO Last administered on 03/14/18 21:12; Start 03/07/18 at 21:00; Stop 03/15/18 at 18:49; Status DC Divalproex Sodium (Depakote Er) 250 mg QHS PO Last administered on 03/14/18 21: 12; Start 03/07/18 at 21:00; Stop 03/15/18 at 18:49; Status DC Alprazolam (Xanax) 0.25 mg QHS PO Last administered on 03/15/18at 19:27; Start at 21:00; Stop 03/27/18 at 23:00 Risperidone (RisperDAL) 0.75 mg HS PO Last administered on 03/14/18at 21:12; Start 03/13/18 at 21:00; Stop 03/15/18 at 18:49; Status DC Active Scripts Active Reported Novolog Flexpen (Insulin Aspart) 100 Unit/1 Ml Insuln.pen 2-10 Units SQ TIDWMEALHC Risperdal (Risperidone) 0.25 Mg Tablet 0.25 Mg BID Cymbalta (Duloxetine Hcl) 60 Mg Capsule.dr 60 Mg PO DAILY Famotidine 20 Mg Tablet 20 Mg PO BID Mag-Al Plus Xs Suspension (Mag Hydrox/Al Hydrox/Simeth) 30 Ml Oral.susp 15 Ml PO PRN AFTMEALHC PRN Celebrex (Celecoxib) 100 Mg Capsule 100 Mg PO BID Vitamin C (Ascorbate Calcium) 500 Mg Tablet 500 Mg PO DAILY Robitussin Cough-Chest Dm Liq (Guaifenesin/Dextromethorphan) 237 Ml Liquid 10 Ml PO PRN Q4HRS PRN Percocet 10-325 Mg Tablet (Oxycodone Hcl/Acetaminophen) 1 Each Tablet 1 Tab PO PRN Q4HRS PRN Percocet 10-325 Mg Tablet (Oxycodone Hcl/Acetaminophen) 1 Each Tablet 1 Tab PO BID Ondansetron Hcl 4 Mg Tablet 4 Mg PO PRN Q4HRS PRN Nystatin 15 Gm Powder 1 Sam TP PRN TID PRN Nitrostat (Nitroglycerin) 0.4 Mg Tab.subl 0.4 Mg SL PRN Q5MIN PRN MDD 3tabs Melatonin 5 Mg Tablet (Melatonin/Pyridoxine) 1 Each Tablet 6 Mg PO QHS Loperamide (Loperamide Hcl) 2 Mg Tablet 2 Mg PO PRN Q4HRS PRN MDD 16mg Keppra (Levetiracetam) 500 Mg Tablet 500 Mg PO BID Ferrous Sulfate 325 Mg Tablet 325 Mg PO DAILY Neurontin (Gabapentin) 300 Mg Capsule 300 Mg PO TID Voltaren (Diclofenac Sodium) 100 Gm Gel..gram. 4 Gm TP PRN QID PRN Budesonide 0.5 Mg/2 Ml Ampul.neb 0.5 Mg NEB PRN BID PRN Dicyclomine Hcl 10 Mg Capsule 10 Mg PO PRN Q8HRS PRN Artificial Tears Eye Drops (Dextran 70/Hypromellose) 15 Ml Drops 1 Drop OU TID PRN Anusol-Hc (Hydrocortisone Acetate) 25 Mg Supp.rect 25 Mg RC PRN Q12HR PRN Anusol-Hc (Hydrocortisone) 30 Gm Cream..g. 1 Sam RC PRN Q24HRS PRN Norvasc (Amlodipine Besylate) 10 Mg Tablet 10 Mg PO DAILY Alprazolam 0.5 Mg Tablet 0.5 Mg PO HS Tylenol (Acetaminophen) 325 Mg Tablet 650 Mg PO PRN Q6HRS PRN Albuterol Sulfate Neb Soln (Albuterol Sulfate) 2.5 Mg/3 Ml Vial.neb 2.5 Mg NEB PRN Q4HRS PRN Milk Of Magnesia (Magnesium Hydroxide) 400 Mg/5 Ml Oral.susp 2,400 Mg PO PRN QHS PRN Actos (Pioglitazone Hcl) 15 Mg Tablet 15 Mg PO DAILYWBKFT I have reviewed the current psychotropics carefully including drug interactions. Risk benefit ratio favors no change other than as noted in my dictated progress note. Diagnosis: Problems: (1) Anxiety disorder (2) Impulse control disorder (3) Major depressive disorder, recurrent episode (4) Mild cognitive impairment BEA SAWANT MD Mar 15, 2018 20:55
--- NOTE | 2018-03-16 04:19 | PN ---
DATE: 03/14/2018 PSYCHIATRIC PROGRESS NOTE This is a late entry 03/14/2018 covers elements not covered in my initial note 03/14/2018. 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 No injuries noted. She told the nursing staff, she saw a spider on the wall and this was in fact true. REVIEW OF SYSTEMS: Ambulation impaired, in wheelchair. No CV, , pulmonary, eye, ENT system symptoms on review. The patient was walking when she came to our unit. We will start physical therapy. MENTAL STATUS EXAM: Oriented to herself and situation. Speech moderate latency, often responses monosyllabic. Abstraction fair, computation impaired, unable to do serial 7's. Attention span short. No suicidal or homicidal ideation. LABORATORY DATA: Reviewed. IMPRESSION: Unchanged from initial note. PLAN: Continue current psychotropic, start physical therapy, may reduce Risperdal if psychotic symptoms remain stable. MAN Farrah SAWANT MD DR: MARK/daphne JOB#: [id number] / [id number]
[2018-03-16 06:35] VITALS: BP 172/78
[2018-03-16 07:54] LABS: ALBUMIN 2.5 g/dL (3.4-5.0); ALBUMIN/GLOBULIN RATIO 0.6 (1.0-1.7); CALCIUM 8.6 mg/dL (8.5-10.1); CREATININE 1.1 mg/dL (0.6-1.0); GFR 59.1; POTASSIUM 4.7 mmol/L (3.5-5.1); TOTAL BILIRUBIN 0.2 mg/dL (0.2-1.0); TOTAL PROTEIN 6.7 g/dL (6.4-8.2)
[2018-03-16] MEDS: BUDESONIDE 0.5 MG/2 ML NEBU NEB SCH ×2 (08:00→19:59)
[2018-03-16] MEDS: INSULIN LISPRO 300 UNITS/3 ML INSULN.PEN. SQ SCH ×4 (08:55→19:56)
[2018-03-16 09:34] LABS: BASO % 1 % (0-3); EOS # 0.1 x10^3/uL (0.0-0.7); EOS % 2 % (0-3); HEMATOCRIT 30.1 % (36.0-47.0); HEMOGLOBIN 9.9 g/dL (12.0-15.5); LYMPH # 2.2 x10^3/uL (1.0-4.8); LYMPH % 32 % (24-48); MEAN CORPUSCULAR HEMOGLOBIN 28 pg (25-35); MEAN CORPUSCULAR HGB CONC 33 g/dL (31-37); MEAN CORPUSCULAR VOLUME 84 fL (79-100); MONO # 0.7 x10^3/uL (0.0-1.1); MONO % 11 % (0-9); NEUT # 3.8 x10^3uL (1.8-7.7); NEUT % 56 % (31-73); PLATELET COUNT 237 x10^3/uL (140-400); RED BLOOD COUNT 3.59 x10^6/uL (3.50-5.40); RED CELL DISTRIBUTION WIDTH 15.9 % (11.5-14.5); WHITE BLOOD COUNT 6.8 x10^3/uL (4.0-11.0)
[2018-03-16] MEDS: PIOGLITAZONE 15 MG TABLET. PO SCH (11:51)
[2018-03-16] MEDS: FERROUS SULFATE 325 MG TABLET. PO SCH (11:51)
[2018-03-16] MEDS: DULoxetine HCL 60 MG CAPSULE.DR PO SCH (11:51)
[2018-03-16] MEDS: levETIRAcetam 500 MG TABLET PO SCH ×2 (11:51→19:50)
[2018-03-16] MEDS: ASCORBIC ACID 500 MG TABLET PO SCH (11:52)
[2018-03-16] MEDS: FAMOTIDINE 20 MG TABLET PO SCH (11:52)
[2018-03-16] MEDS: amLODIPine BESYLATE 10 MG TABLET PO SCH (11:52)
[2018-03-16] MEDS: GABAPENTIN 300 MG CAPSULE. PO SCH ×2 (11:52→19:50)
[2018-03-16] MEDS: oxyCODONE/APAP 10/325 1 TAB TABLET PO SCH ×2 (12:22→19:55)
--- NOTE | 2018-03-16 13:44 | PN ---
DATE: 03/15/2018 This late entry of 03/15/2018 covers elements not covered in my initial note of 03/15/2018. 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 She has been hallucinating off and on during the day, having conversations when no one is around her, threw herself on the floor on one occasion. Somewhat sedated, had to be fed, per nursing report unaware of how to put food in her mouth, this is quite a change for her. REVIEW OF SYSTEMS: Ambulation impaired, in wheelchair. No CV, , pulmonary, eye, ENT system symptoms on review. MENTAL STATUS EXAM: Oriented to herself, situation. Speech has some latency, often responses monosyllabic. Abstraction fair, computation impaired, language function intact, attention span short. Mood and affect somewhat labile. LABORATORY DATA: Reviewed. IMPRESSION: Major depressive disorder with psychotic features; bipolar 1 disorder, mixed with psychotic features; cognitive disorder, unspecified. PLAN: The patient's presentation appears somewhat complicated by her marked sedation. She also had some parkinsonian features. We will go ahead and stop the Risperdal and the Depakote for now to see how she does without the psychotropics. Start physical therapy and occupational therapy. Continue Cymbalta, Remeron, melatonin, along with Zyprexa p.r.n. BEA SAWANT MD DR: MARK/daphne JOB#: [id number] / [id number]
[2018-03-16 16:17] VITALS: BP 161/86
[2018-03-16] MEDS: MELATONIN 3 MG TABLET PO SCH (19:50)
[2018-03-16] MEDS: MIRTAZAPINE 7.5 MG TABLET. PO SCH (19:50)
[2018-03-16] MEDS: ALPRAZolam 0.25 MG TABLET PO SCH (19:55)
--- NOTE | 2018-03-16 20:49 | PDOC ---
Exam Note: Neal Note: Please also refer to the separate dictated note~for this date of service dictated separately.~Patient seen individually. Discussed the patient with Nursing staff reviewed the chart.~Reviewed interim history and current functioning. Reviewed vital signs,~Labs/ Radiology~and current medications noted below. Continue current treatment with the changes noted in the dictated addendum note Assessment: Vital Signs: Vital Signs Date Time Temp Pulse Resp B/P (MAP) Pulse Ox O2 Delivery O2 Flow Rate FiO2 03/16/18 20:00 95 Room Air 03/16/18 16:17 97.8 96 20 161/86 (111) I&O Intake and Output 03/16/18 07:00 Intake Total 720 ml Balance 720 ml Intake Oral 720 ml Labs: Laboratory Tests Test 03/16/18 07:18 03/16/18 07:34 03/16/18 09:22 03/16/18 12:02 Sodium Level 141 mmol/L (136-145) Potassium Level 4.7 mmol/L (3.5-5.1) Chloride Level 108 mmol/L (98-107) H Carbon Dioxide Level 27 mmol/L (21-32) Anion Gap 6 (6-14) Blood Urea Nitrogen 23 mg/dL (7-20) H Creatinine 1.1 mg/dL (0.6-1.0) H Estimated GFR (Cockcroft-Gault) 59.1 BUN/Creatinine Ratio 21 (6-20) H Glucose Level 165 mg/dL (70-99) H Calcium Level 8.6 mg/dL (8.5-10.1) Total Bilirubin 0.2 mg/dL (0.2-1.0) Aspartate Amino Transferase (AST) 27 U/L (15-37) Alanine Aminotransferase (ALT) 18 U/L (14-59) Alkaline Phosphatase 79 U/L (46-116) Total Protein 6.7 g/dL (6.4-8.2) Albumin 2.5 g/dL (3.4-5.0) L Albumin/Globulin Ratio 0.6 (1.0-1.7) L Glucose (Fingerstick) 150 mg/dL (70-99) H 130 mg/dL (70-99) H White Blood Count 6.8 x10^3/uL (4.0-11.0) Red Blood Count 3.59 x10^6/uL (3.50-5.40) Hemoglobin 9.9 g/dL (12.0-15.5) L Hematocrit 30.1 % (36.0-47.0) L Mean Corpuscular Volume 84 fL (79-100) Mean Corpuscular Hemoglobin 28 pg (25-35) Mean Corpuscular Hemoglobin Concent 33 g/dL (31-37) Red Cell Distribution Width 15.9 % (11.5-14.5) H Platelet Count 237 x10^3/uL (140-400) Neutrophils (%) (Auto) 56 % (31-73) Lymphocytes (%) (Auto) 32 % (24-48) Monocytes (%) (Auto) 11 % (0-9) H Eosinophils (%) (Auto) 2 % (0-3) Basophils (%) (Auto) 1 % (0-3) Neutrophils # (Auto) 3.8 x10^3uL (1.8-7.7) Lymphocytes # (Auto) 2.2 x10^3/uL (1.0-4.8) Monocytes # (Auto) 0.7 x10^3/uL (0.0-1.1) Eosinophils # (Auto) 0.1 x10^3/uL (0.0-0.7) Basophils # (Auto) 0.0 x10^3/uL (0.0-0.2) Test 03/16/18 16:29 03/16/18 19:06 Glucose (Fingerstick) 228 mg/dL (70-99) H 253 mg/dL (70-99) H Current Medications: Meds: Current Medications Acetaminophen (Tylenol) 1,000 mg 1X ONCE PO Last administered on 02/22/18at 03: 05; Start 02/22/18 at 03:30; Stop 02/22/18 at 03:31; Status DC Alprazolam (Xanax) 0.5 mg QHS PO Last administered on 03/11/18at 19:50; Start at 21:00; Stop 03/12/18 at 18:14; Status DC Duloxetine HCl (Cymbalta) 60 mg DAILY PO Last administered on 03/16/18at 11:51; Start 02/22/18 at 09:00 Melatonin 6 mg QHS PO Last administered on 03/16/18at 19:50; Start 02/22/18 at 21 :00 Risperidone (RisperDAL) 0.25 mg BID PO Last administered on 02/23/18at 08:51; Start 02/22/18 at 09:00; Stop 02/23/18 at 13:23; Status DC Acetaminophen (Tylenol) 650 mg PRN Q6HRS PRN PO PAIN / TEMP Last administered on 03/11/18at 17:24; Start 02/22/18 at 05:00 Albuterol Sulfate (Ventolin) 2.5 mg PRN Q4HRS PRN NEB Dyspnea; Start 02/22/18 at 05:00 Diclofenac Sodium (Voltaren) 4 sam PRN QID PRN TP R Knee Pain; Start 02/22/18 at 05:00 Dicyclomine HCl (Bentyl) 10 mg PRN Q8HRS PRN PO Bowel Cramps; Start 02/22/18 at 05:00 Ferrous Sulfate (Feosol) 325 mg DAILY PO Last administered on 03/16/18at 11:51; Start 02/22/18 at 09:00 Gabapentin (Neurontin) 300 mg BID PO Last administered on 03/16/18at 19:50; Start 02/22/18 at 09:00 Hydrocortisone (Proctosol-Hc) 1 sam PRN Q24HRS PRN RC Hemorrhoids; Start at 05:00 Insulin Aspart (NovoLOG) BS 200-2,50= 2 un... TIDWMEALHC SQ ; Start 02/22/18 at 08:00; Stop 02/22/18 at 08:01; Status DC Al Hydroxide/Mg Hydroxide (Mylanta Plus Xs) 15 ml PRN AFTMEALHC PRN PO DYSPEPSIA; Start 02/22/18 at 05:00 Magnesium Hydroxide (Milk Of Magnesia) 2,400 mg PRN QHS PRN PO CONSTIPATION Last administered on 02/26/18at 21:15; Start 02/22/18 at 05:00 Nitroglycerin (Nitrostat) 0.4 mg PRN Q5MIN PRN SL CHEST PAIN; Start 02/22/18 at 05:00 Nystatin (Nystop) 1 sam PRN TID PRN TP REDNESS; Start 02/22/18 at 05:00 Oxycodone/ Acetaminophen (Percocet 10/325) 1 tab BID PO Last administered on 19:55; Start 02/22/18 at 09:00 Oxycodone/ Acetaminophen (Percocet 10/325) 1 tab PRN Q4HRS PRN PO PAIN Last administered on 03/11/18 15:35; Start 02/22/18 at 05:00 Amlodipine Besylate (Norvasc) 10 mg DAILY PO Last administered on 03/16/18 11: 52; Start 02/22/18 at 09:00 Ascorbic Acid (Vitamin C) 500 mg DAILY PO Last administered on 03/16/18 11:52; Start 02/22/18 at 09:00 Budesonide (Pulmicort) 0.5 mg RTBID NEB Last administered on 03/16/18 19:59; Start 02/22/18 at 08:00 Celecoxib (CeleBREX) 100 mg BID PO Last administered on 03/04/18 07:58; Start 02/22/18 at 09:00; Stop 03/04/18 at 17:39; Status DC Artificial Tears (Artificial Tears) 1 drop TID PRN PRN OU DRY EYE; Start at 05:30 Famotidine (Pepcid) 20 mg DAILY PO Last administered on 03/16/18 11:52; Start 02/22/18 at 09:00 Guaifenesin (Robitussin Dm) 10 ml PRN Q4HRS PRN PO COUGH; Start 02/22/18 at 05: 30 Hydrocortisone Acetate (Anucort-Hc) 25 mg PRN Q12HR PRN [place] RECTAL PAIN; Start 02/22/18 at 05:30 Levetiracetam (Keppra) 500 mg BID PO Last administered on 03/16/18 19:50; Start 02/22/18 at 09:00 Loperamide HCl (Imodium) 2 mg PRN Q4HRS PRN PO DIARRHEA; Start 02/22/18 at 05: 30 Ondansetron HCl (Zofran Odt) 4 mg PRN Q4HRS PRN PO NAUSEA/VOMITING; Start 02/22 at 05:30 Pioglitazone HCl (Actos) 15 mg DAILY PO Last administered on 03/16/18 11:51; Start 02/22/18 at 09:00 Multi-Ingredient Ointment (Analgesic [place]) 1 sam PRN QID PRN TP MUSCLE PAIN; Start 02/22/18 at 05:00 Insulin Human Lispro (HumaLOG) TIDWMEALHC SQ Last administered on 03/16/18 19: 56; Start 02/22/18 at 08:00 Mirtazapine (Remeron) 7.5 mg QHS PO Last administered on 03/16/18 19:50; Start 02/22/18 at 21:00 Risperidone (RisperDAL) 0.375 mg BID PO Last administered on 02/26/18at 11:50; Start 02/23/18 at 21:00; Stop 02/26/18 at 19:49; Status DC Olanzapine (ZyPREXA ZYDIS) 5 mg PRN Q2HR PRN PO PSYCHOSIS Last administered on 03/13/18 07:44; Start 02/23/18 at 19:45 Divalproex Sodium (Depakote Sprinkles) 125 mg TID@0900,1300,1700 PO Last administered on 03/01/18at 17:39; Start 02/26/18 at 09:00; Stop 03/01/18 at 18:29 ; Status DC Risperidone (RisperDAL) 0.5 mg BID PO Last administered on 03/01/18at 10:17; Start 02/26/18 at 21:00; Stop 03/01/18 at 18:29; Status DC Divalproex Sodium (Depakote Sprinkles) 250 mg TID@0900,1300,1700 PO Last administered on 03/04/18at 17:59; Start 03/02/18 at 09:00; Stop 03/04/18 at 19:22 ; Status DC Risperidone (RisperDAL) 0.75 mg BID PO Last administered on 03/13/18 07:42; Start 03/01/18 at 21:00; Stop 03/13/18 at 15:04; Status DC Divalproex Sodium (Depakote Er) 1,000 mg QHS PO Last administered on 03/06/18at 19:17; Start 03/04/18 at 21:00; Stop 03/07/18 at 19:54; Status DC Divalproex Sodium (Depakote Er) 1,000 mg QHS PO Last administered on 03/14/18 21:12; Start 03/07/18 at 21:00; Stop 03/15/18 at 18:49; Status DC Divalproex Sodium (Depakote Er) 250 mg QHS PO Last administered on 03/14/18 21: 12; Start 03/07/18 at 21:00; Stop 03/15/18 at 18:49; Status DC Alprazolam (Xanax) 0.25 mg QHS PO Last administered on 03/16/18at 19:55; Start at 21:00; Stop 03/27/18 at 23:00 Risperidone (RisperDAL) 0.75 mg HS PO Last administered on 03/14/18 21:12; Start 03/13/18 at 21:00; Stop 03/15/18 at 18:49; Status DC Active Scripts Active Reported Novolog Flexpen (Insulin Aspart) 100 Unit/1 Ml Insuln.pen 2-10 Units SQ TIDWMEALHC Risperdal (Risperidone) 0.25 Mg Tablet 0.25 Mg BID Cymbalta (Duloxetine Hcl) 60 Mg Capsule.dr 60 Mg PO DAILY Famotidine 20 Mg Tablet 20 Mg PO BID Mag-Al Plus Xs Suspension (Mag Hydrox/Al Hydrox/Simeth) 30 Ml Oral.susp 15 Ml PO PRN AFTMEALHC PRN Celebrex (Celecoxib) 100 Mg Capsule 100 Mg PO BID Vitamin C (Ascorbate Calcium) 500 Mg Tablet 500 Mg PO DAILY Robitussin Cough-Chest Dm Liq (Guaifenesin/Dextromethorphan) 237 Ml Liquid 10 Ml PO PRN Q4HRS PRN Percocet 10-325 Mg Tablet (Oxycodone Hcl/Acetaminophen) 1 Each Tablet 1 Tab PO PRN Q4HRS PRN Percocet 10-325 Mg Tablet (Oxycodone Hcl/Acetaminophen) 1 Each Tablet 1 Tab PO BID Ondansetron Hcl 4 Mg Tablet 4 Mg PO PRN Q4HRS PRN Nystatin 15 Gm Powder 1 Sam TP PRN TID PRN Nitrostat (Nitroglycerin) 0.4 Mg Tab.subl 0.4 Mg SL PRN Q5MIN PRN MDD 3tabs Melatonin 5 Mg Tablet (Melatonin/Pyridoxine) 1 Each Tablet 6 Mg PO QHS Loperamide (Loperamide Hcl) 2 Mg Tablet 2 Mg PO PRN Q4HRS PRN MDD 16mg Keppra (Levetiracetam) 500 Mg Tablet 500 Mg PO BID Ferrous Sulfate 325 Mg Tablet 325 Mg PO DAILY Neurontin (Gabapentin) 300 Mg Capsule 300 Mg PO TID Voltaren (Diclofenac Sodium) 100 Gm Gel..gram. 4 Gm TP PRN QID PRN Budesonide 0.5 Mg/2 Ml Ampul.neb 0.5 Mg NEB PRN BID PRN Dicyclomine Hcl 10 Mg Capsule 10 Mg PO PRN Q8HRS PRN Artificial Tears Eye Drops (Dextran 70/Hypromellose) 15 Ml Drops 1 Drop OU TID PRN Anusol-Hc (Hydrocortisone Acetate) 25 Mg Supp.rect 25 Mg RC PRN Q12HR PRN Anusol-Hc (Hydrocortisone) 30 Gm Cream..g. 1 Sam RC PRN Q24HRS PRN Norvasc (Amlodipine Besylate) 10 Mg Tablet 10 Mg PO DAILY Alprazolam 0.5 Mg Tablet 0.5 Mg PO HS Tylenol (Acetaminophen) 325 Mg Tablet 650 Mg PO PRN Q6HRS PRN Albuterol Sulfate Neb Soln (Albuterol Sulfate) 2.5 Mg/3 Ml Vial.neb 2.5 Mg NEB PRN Q4HRS PRN Milk Of Magnesia (Magnesium Hydroxide) 400 Mg/5 Ml Oral.susp 2,400 Mg PO PRN QHS PRN Actos (Pioglitazone Hcl) 15 Mg Tablet 15 Mg PO DAILYWBKFT I have reviewed the current psychotropics carefully including drug interactions. Risk benefit ratio favors no change other than as noted in my dictated progress note. Diagnosis: Problems: (1) Anxiety disorder (2) Impulse control disorder (3) Major depressive disorder, recurrent episode (4) Mild cognitive impairment BEA SAWANT MD Mar 16, 2018 20:49
[2018-03-17 06:30] VITALS: BP 149/78
[2018-03-17] MEDS: INSULIN LISPRO 300 UNITS/3 ML INSULN.PEN. SQ SCH ×4 (08:00→19:47)
[2018-03-17] MEDS: amLODIPine BESYLATE 10 MG TABLET PO SCH (08:47)
[2018-03-17] MEDS: PIOGLITAZONE 15 MG TABLET. PO SCH (08:48)
[2018-03-17] MEDS: FERROUS SULFATE 325 MG TABLET. PO SCH (08:48)
[2018-03-17] MEDS: DULoxetine HCL 60 MG CAPSULE.DR PO SCH (08:48)
[2018-03-17] MEDS: FAMOTIDINE 20 MG TABLET PO SCH (08:48)
[2018-03-17] MEDS: ASCORBIC ACID 500 MG TABLET PO SCH (08:48)
[2018-03-17] MEDS: GABAPENTIN 300 MG CAPSULE. PO SCH ×2 (08:48→19:44)
[2018-03-17] MEDS: levETIRAcetam 500 MG TABLET PO SCH ×2 (08:48→19:45)
[2018-03-17] MEDS: oxyCODONE/APAP 10/325 1 TAB TABLET PO SCH ×2 (10:55→19:45)
[2018-03-17] MEDS: BUDESONIDE 0.5 MG/2 ML NEBU NEB SCH ×2 (11:10→19:58)
[2018-03-17 16:22] VITALS: BP 159/70
[2018-03-17] MEDS: oxyCODONE/APAP 10/325 1 TAB TABLET PO PRN (17:39)
[2018-03-17] MEDS: MIRTAZAPINE 7.5 MG TABLET. PO SCH (19:44)
[2018-03-17] MEDS: MELATONIN 3 MG TABLET PO SCH (19:45)
[2018-03-17] MEDS: ALPRAZolam 0.25 MG TABLET PO SCH (19:45)
--- NOTE | 2018-03-17 22:27 | PDOC ---
Exam Note: Neal Note: Please also refer to the separate dictated note~for this date of service dictated separately.~Patient seen individually. Discussed the patient with Nursing staff reviewed the chart.~Reviewed interim history and current functioning. Reviewed vital signs,~Labs/ Radiology~and current medications noted below. Continue current treatment with the changes noted in the dictated addendum note Assessment: Vital Signs: Vital Signs Date Time Temp Pulse Resp B/P (MAP) Pulse Ox O2 Delivery O2 Flow Rate FiO2 03/17/18 20:00 98 Room Air 03/17/18 16:22 97.0 82 17 159/70 (99) I&O Intake and Output 03/17/18 07:00 Intake Total 560 ml Balance 560 ml Intake Oral 560 ml # Voids 1 Labs: Laboratory Tests Test 03/17/18 07:23 03/17/18 11:12 03/17/18 16:45 03/17/18 18:56 Glucose (Fingerstick) 129 mg/dL (70-99) H 232 mg/dL (70-99) H 294 mg/dL (70-99) H 214 mg/dL (70-99) H Current Medications: Meds: Current Medications Acetaminophen (Tylenol) 1,000 mg 1X ONCE PO Last administered on 02/22/18at 03: 05; Start 02/22/18 at 03:30; Stop 02/22/18 at 03:31; Status DC Alprazolam (Xanax) 0.5 mg QHS PO Last administered on 03/11/18at 19:50; Start at 21:00; Stop 03/12/18 at 18:14; Status DC Duloxetine HCl (Cymbalta) 60 mg DAILY PO Last administered on 03/17/18at 08:48; Start 02/22/18 at 09:00 Melatonin 6 mg QHS PO Last administered on 03/17/18 19:45; Start 02/22/18 at 21 :00 Risperidone (RisperDAL) 0.25 mg BID PO Last administered on 02/23/18at 08:51; Start 02/22/18 at 09:00; Stop 02/23/18 at 13:23; Status DC Acetaminophen (Tylenol) 650 mg PRN Q6HRS PRN PO PAIN / TEMP Last administered on 03/11/18at 17:24; Start 02/22/18 at 05:00 Albuterol Sulfate (Ventolin) 2.5 mg PRN Q4HRS PRN NEB Dyspnea; Start 02/22/18 at 05:00 Diclofenac Sodium (Voltaren) 4 sam PRN QID PRN TP R Knee Pain; Start 02/22/18 at 05:00 Dicyclomine HCl (Bentyl) 10 mg PRN Q8HRS PRN PO Bowel Cramps; Start 02/22/18 at 05:00 Ferrous Sulfate (Feosol) 325 mg DAILY PO Last administered on 03/17/18at 08:48; Start 02/22/18 at 09:00 Gabapentin (Neurontin) 300 mg BID PO Last administered on 03/17/18at 19:44; Start 02/22/18 at 09:00 Hydrocortisone (Proctosol-Hc) 1 sam PRN Q24HRS PRN RC Hemorrhoids; Start at 05:00 Insulin Aspart (NovoLOG) BS 200-2,50= 2 un... TIDWMEALHC SQ ; Start 02/22/18 at 08:00; Stop 02/22/18 at 08:01; Status DC Al Hydroxide/Mg Hydroxide (Mylanta Plus Xs) 15 ml PRN AFTMEALHC PRN PO DYSPEPSIA; Start 02/22/18 at 05:00 Magnesium Hydroxide (Milk Of Magnesia) 2,400 mg PRN QHS PRN PO CONSTIPATION Last administered on 02/26/18at 21:15; Start 02/22/18 at 05:00 Nitroglycerin (Nitrostat) 0.4 mg PRN Q5MIN PRN SL CHEST PAIN; Start 02/22/18 at 05:00 Nystatin (Nystop) 1 sam PRN TID PRN TP REDNESS; Start 02/22/18 at 05:00 Oxycodone/ Acetaminophen (Percocet 10/325) 1 tab BID PO Last administered on 03/17/18at 19:45; Start 02/22/18 at 09:00 Oxycodone/ Acetaminophen (Percocet 10/325) 1 tab PRN Q4HRS PRN PO PAIN Last administered on 03/17/18at 17:39; Start 02/22/18 at 05:00 Amlodipine Besylate (Norvasc) 10 mg DAILY PO Last administered on 03/17/18 08: 47; Start 02/22/18 at 09:00 Ascorbic Acid (Vitamin C) 500 mg DAILY PO Last administered on 03/17/18 08:48; Start 02/22/18 at 09:00 Budesonide (Pulmicort) 0.5 mg RTBID NEB Last administered on 03/17/18 19:58; Start 02/22/18 at 08:00 Celecoxib (CeleBREX) 100 mg BID PO Last administered on 03/04/18 07:58; Start 02/22/18 at 09:00; Stop 03/04/18 at 17:39; Status DC Artificial Tears (Artificial Tears) 1 drop TID PRN PRN OU DRY EYE; Start at 05:30 Famotidine (Pepcid) 20 mg DAILY PO Last administered on 03/17/18 08:48; Start 02/22/18 at 09:00 Guaifenesin (Robitussin Dm) 10 ml PRN Q4HRS PRN PO COUGH; Start 02/22/18 at 05: 30 Hydrocortisone Acetate (Anucort-Hc) 25 mg PRN Q12HR PRN [place] RECTAL PAIN; Start 02/22/18 at 05:30 Levetiracetam (Keppra) 500 mg BID PO Last administered on 03/17/18 19:45; Start 02/22/18 at 09:00 Loperamide HCl (Imodium) 2 mg PRN Q4HRS PRN PO DIARRHEA; Start 02/22/18 at 05: 30 Ondansetron HCl (Zofran Odt) 4 mg PRN Q4HRS PRN PO NAUSEA/VOMITING; Start 02/22 at 05:30 Pioglitazone HCl (Actos) 15 mg DAILY PO Last administered on 03/17/18 08:48; Start 02/22/18 at 09:00 Multi-Ingredient Ointment (Analgesic [place]) 1 sam PRN QID PRN TP MUSCLE PAIN; Start 02/22/18 at 05:00 Insulin Human Lispro (HumaLOG) TIDWMEALHC SQ Last administered on 03/17/18 19: 47; Start 02/22/18 at 08:00 Mirtazapine (Remeron) 7.5 mg QHS PO Last administered on 03/17/18 19:44; Start 02/22/18 at 21:00 Risperidone (RisperDAL) 0.375 mg BID PO Last administered on 02/26/18at 11:50; Start 02/23/18 at 21:00; Stop 02/26/18 at 19:49; Status DC Olanzapine (ZyPREXA ZYDIS) 5 mg PRN Q2HR PRN PO PSYCHOSIS Last administered on 03/17/18 10:44; Start 02/23/18 at 19:45 Divalproex Sodium (Depakote Sprinkles) 125 mg TID@0900,1300,1700 PO Last administered on 03/01/18 17:39; Start 02/26/18 at 09:00; Stop 03/01/18 at 18:29 ; Status DC Risperidone (RisperDAL) 0.5 mg BID PO Last administered on 03/01/18 10:17; Start 02/26/18 at 21:00; Stop 03/01/18 at 18:29; Status DC Divalproex Sodium (Depakote Sprinkles) 250 mg TID@0900,1300,1700 PO Last administered on 03/04/18 17:59; Start 03/02/18 at 09:00; Stop 03/04/18 at 19:22 ; Status DC Risperidone (RisperDAL) 0.75 mg BID PO Last administered on 03/13/18 07:42; Start 03/01/18 at 21:00; Stop 03/13/18 at 15:04; Status DC Divalproex Sodium (Depakote Er) 1,000 mg QHS PO Last administered on 03/06/18 19:17; Start 03/04/18 at 21:00; Stop 03/07/18 at 19:54; Status DC Divalproex Sodium (Depakote Er) 1,000 mg QHS PO Last administered on 03/14/18 21:12; Start 03/07/18 at 21:00; Stop 03/15/18 at 18:49; Status DC Divalproex Sodium (Depakote Er) 250 mg QHS PO Last administered on 03/14/18 21: 12; Start 03/07/18 at 21:00; Stop 03/15/18 at 18:49; Status DC Alprazolam (Xanax) 0.25 mg QHS PO Last administered on 03/17/18at 19:45; Start at 21:00; Stop 03/27/18 at 23:00 Risperidone (RisperDAL) 0.75 mg HS PO Last administered on 03/14/18at 21:12; Start 03/13/18 at 21:00; Stop 03/15/18 at 18:49; Status DC Active Scripts Active Reported Novolog Flexpen (Insulin Aspart) 100 Unit/1 Ml Insuln.pen 2-10 Units SQ TIDWMEALHC Risperdal (Risperidone) 0.25 Mg Tablet 0.25 Mg BID Cymbalta (Duloxetine Hcl) 60 Mg Capsule.dr 60 Mg PO DAILY Famotidine 20 Mg Tablet 20 Mg PO BID Mag-Al Plus Xs Suspension (Mag Hydrox/Al Hydrox/Simeth) 30 Ml Oral.susp 15 Ml PO PRN AFTMEALHC PRN Celebrex (Celecoxib) 100 Mg Capsule 100 Mg PO BID Vitamin C (Ascorbate Calcium) 500 Mg Tablet 500 Mg PO DAILY Robitussin Cough-Chest Dm Liq (Guaifenesin/Dextromethorphan) 237 Ml Liquid 10 Ml PO PRN Q4HRS PRN Percocet 10-325 Mg Tablet (Oxycodone Hcl/Acetaminophen) 1 Each Tablet 1 Tab PO PRN Q4HRS PRN Percocet 10-325 Mg Tablet (Oxycodone Hcl/Acetaminophen) 1 Each Tablet 1 Tab PO BID Ondansetron Hcl 4 Mg Tablet 4 Mg PO PRN Q4HRS PRN Nystatin 15 Gm Powder 1 Sam TP PRN TID PRN Nitrostat (Nitroglycerin) 0.4 Mg Tab.subl 0.4 Mg SL PRN Q5MIN PRN MDD 3tabs Melatonin 5 Mg Tablet (Melatonin/Pyridoxine) 1 Each Tablet 6 Mg PO QHS Loperamide (Loperamide Hcl) 2 Mg Tablet 2 Mg PO PRN Q4HRS PRN MDD 16mg Keppra (Levetiracetam) 500 Mg Tablet 500 Mg PO BID Ferrous Sulfate 325 Mg Tablet 325 Mg PO DAILY Neurontin (Gabapentin) 300 Mg Capsule 300 Mg PO TID Voltaren (Diclofenac Sodium) 100 Gm Gel..gram. 4 Gm TP PRN QID PRN Budesonide 0.5 Mg/2 Ml Ampul.neb 0.5 Mg NEB PRN BID PRN Dicyclomine Hcl 10 Mg Capsule 10 Mg PO PRN Q8HRS PRN Artificial Tears Eye Drops (Dextran 70/Hypromellose) 15 Ml Drops 1 Drop OU TID PRN Anusol-Hc (Hydrocortisone Acetate) 25 Mg Supp.rect 25 Mg RC PRN Q12HR PRN Anusol-Hc (Hydrocortisone) 30 Gm Cream..g. 1 Sam RC PRN Q24HRS PRN Norvasc (Amlodipine Besylate) 10 Mg Tablet 10 Mg PO DAILY Alprazolam 0.5 Mg Tablet 0.5 Mg PO HS Tylenol (Acetaminophen) 325 Mg Tablet 650 Mg PO PRN Q6HRS PRN Albuterol Sulfate Neb Soln (Albuterol Sulfate) 2.5 Mg/3 Ml Vial.neb 2.5 Mg NEB PRN Q4HRS PRN Milk Of Magnesia (Magnesium Hydroxide) 400 Mg/5 Ml Oral.susp 2,400 Mg PO PRN QHS PRN Actos (Pioglitazone Hcl) 15 Mg Tablet 15 Mg PO DAILYWBKFT I have reviewed the current psychotropics carefully including drug interactions. Risk benefit ratio favors no change other than as noted in my dictated progress note. Diagnosis: Problems: (1) Anxiety disorder (2) Impulse control disorder (3) Major depressive disorder, recurrent episode (4) Mild cognitive impairment BEA SAWANT MD Mar 17, 2018 22:27
[2018-03-18 05:48] VITALS: BP 129/54
[2018-03-18] MEDS: levETIRAcetam 500 MG TABLET PO SCH ×2 (07:49→19:49)
[2018-03-18] MEDS: FERROUS SULFATE 325 MG TABLET. PO SCH (07:49)
[2018-03-18] MEDS: PIOGLITAZONE 15 MG TABLET. PO SCH (07:49)
[2018-03-18] MEDS: DULoxetine HCL 60 MG CAPSULE.DR PO SCH (07:50)
[2018-03-18] MEDS: amLODIPine BESYLATE 10 MG TABLET PO SCH (07:50)
[2018-03-18] MEDS: ASCORBIC ACID 500 MG TABLET PO SCH (07:50)
[2018-03-18] MEDS: GABAPENTIN 300 MG CAPSULE. PO SCH ×2 (07:50→19:49)
[2018-03-18] MEDS: FAMOTIDINE 20 MG TABLET PO SCH (07:50)
[2018-03-18] MEDS: oxyCODONE/APAP 10/325 1 TAB TABLET PO SCH ×2 (07:53→19:52)
[2018-03-18] MEDS: INSULIN LISPRO 300 UNITS/3 ML INSULN.PEN. SQ SCH ×4 (07:54→19:54)
[2018-03-18] MEDS: BUDESONIDE 0.5 MG/2 ML NEBU NEB SCH ×2 (08:00→19:52)
--- NOTE | 2018-03-18 13:34 | PN ---
DATE: 03/16/2018 This late entry 03/16/2018 covers the elements not covered in my initial note 03/16/2018. SUBJECTIVE: I met with the patient in the evening. The patient slept in the morning of 03/16/2018, had no breakfast, quite delusional. We stopped the patient's Risperdal and Depakote since observation by the nursing staff indicated no improvement on them and perhaps worsening cognition, memory. REVIEW OF SYSTEMS: Ambulation impaired, in wheelchair. No CV, , pulmonary, eye, ENT system symptoms on review. MENTAL STATUS EXAM: Oriented to herself. Insight, judgment, recent and remote memory, attention, concentration, fund of knowledge poor, consistent with her diagnosis. She is convinced she is at islam and nothing I could say to her that she was in the hospital would convince her otherwise. LABORATORY DATA: Reviewed. IMPRESSION: Unchanged from initial note. PLAN: Continue current psychotropics for now off the Risperdal and Depakote and adjust further as clinically indicated. BEA SAWANT MD DR: MARK/daphne JOB#: [id number] / [id number]
[2018-03-18 15:55] VITALS: BP 132/80
[2018-03-18] MEDS: MELATONIN 3 MG TABLET PO SCH (19:50)
[2018-03-18] MEDS: MIRTAZAPINE 7.5 MG TABLET. PO SCH (19:50)
[2018-03-18] MEDS: OXcarbazepine 150 MG TABLET. PO SCH (19:52)
[2018-03-18] MEDS: ALPRAZolam 0.25 MG TABLET PO SCH (19:52)
--- NOTE | 2018-03-18 20:27 | PN ---
DATE: 03/17/2018 PSYCHIATRIC PROGRESS NOTE This is a late entry for 03/17/2018, covers elements not covered in my initial note of 03/17/2018. SUBJECTIVE: The patient staffed at a treatment team in the morning, seen individually at some length in the evening. Previous night, she was delusional that she was having babies, holding on to the side of the chair as if she was delivering a baby. Memory is impaired. Daughter came and visited her, made a comment that she never seen her like this. We have stopped her psychotropics to get a sense how she does without them. Remains quite confused, agitated at times. REVIEW OF SYSTEMS: Ambulation impaired, in wheelchair. No CV, , pulmonary, eye system symptoms on review. Reliability poor. MENTAL STATUS EXAM: Oriented to herself. Insight, judgment, recent and remote memory, attention, concentration, fund of knowledge poor, consistent with her diagnosis mentioned in my initial note. PLAN: No change from a psychiatric standpoint. Physical therapy staff walked her. She does complain of some neck pain. We will keep her off antipsychotics for another day and then decide. MAN Farrah SAWANT MD DR: MARK/daphne JOB#: [id number] / [id number]
--- NOTE | 2018-03-18 23:14 | PDOC ---
Exam Note: Neal Note: Please also refer to the separate dictated note~for this date of service dictated separately.~Patient seen individually. Discussed the patient with Nursing staff reviewed the chart.~Reviewed interim history and current functioning. Reviewed vital signs,~Labs/ Radiology~and current medications noted below. Continue current treatment with the changes noted in the dictated addendum note Assessment: Vital Signs: Vital Signs Date Time Temp Pulse Resp B/P (MAP) Pulse Ox O2 Delivery O2 Flow Rate FiO2 03/18/18 19:55 100 Room Air 03/18/18 15:55 98.1 83 18 132/80 (97) I&O Intake and Output 03/18/18 07:00 Intake Total 1600 ml Balance 1600 ml Intake Oral 1600 ml Labs: Laboratory Tests Test 03/18/18 07:11 03/18/18 11:38 03/18/18 16:51 03/18/18 19:05 Glucose (Fingerstick) 158 mg/dL (70-99) H 221 mg/dL (70-99) H 230 mg/dL (70-99) H 227 mg/dL (70-99) H Current Medications: Meds: Current Medications Acetaminophen (Tylenol) 1,000 mg 1X ONCE PO Last administered on 02/22/18at 03: 05; Start 02/22/18 at 03:30; Stop 02/22/18 at 03:31; Status DC Alprazolam (Xanax) 0.5 mg QHS PO Last administered on 03/11/18at 19:50; Start at 21:00; Stop 03/12/18 at 18:14; Status DC Duloxetine HCl (Cymbalta) 60 mg DAILY PO Last administered on 03/18/18at 07:50; Start 02/22/18 at 09:00 Melatonin 6 mg QHS PO Last administered on 03/18/18 19:50; Start 02/22/18 at 21 :00 Risperidone (RisperDAL) 0.25 mg BID PO Last administered on 02/23/18at 08:51; Start 02/22/18 at 09:00; Stop 02/23/18 at 13:23; Status DC Acetaminophen (Tylenol) 650 mg PRN Q6HRS PRN PO PAIN / TEMP Last administered on 03/11/18at 17:24; Start 02/22/18 at 05:00 Albuterol Sulfate (Ventolin) 2.5 mg PRN Q4HRS PRN NEB Dyspnea; Start 02/22/18 at 05:00 Diclofenac Sodium (Voltaren) 4 sam PRN QID PRN TP R Knee Pain; Start 02/22/18 at 05:00 Dicyclomine HCl (Bentyl) 10 mg PRN Q8HRS PRN PO Bowel Cramps; Start 02/22/18 at 05:00 Ferrous Sulfate (Feosol) 325 mg DAILY PO Last administered on 03/18/18 07:49; Start 02/22/18 at 09:00 Gabapentin (Neurontin) 300 mg BID PO Last administered on 03/18/18 19:49; Start 02/22/18 at 09:00 Hydrocortisone (Proctosol-Hc) 1 sam PRN Q24HRS PRN RC Hemorrhoids; Start at 05:00 Insulin Aspart (NovoLOG) BS 200-2,50= 2 un... TIDWMEALHC SQ ; Start 02/22/18 at 08:00; Stop 02/22/18 at 08:01; Status DC Al Hydroxide/Mg Hydroxide (Mylanta Plus Xs) 15 ml PRN AFTMEALHC PRN PO DYSPEPSIA; Start 02/22/18 at 05:00 Magnesium Hydroxide (Milk Of Magnesia) 2,400 mg PRN QHS PRN PO CONSTIPATION Last administered on 02/26/18at 21:15; Start 02/22/18 at 05:00 Nitroglycerin (Nitrostat) 0.4 mg PRN Q5MIN PRN SL CHEST PAIN; Start 02/22/18 at 05:00 Nystatin (Nystop) 1 sam PRN TID PRN TP REDNESS; Start 02/22/18 at 05:00 Oxycodone/ Acetaminophen (Percocet 10/325) 1 tab BID PO Last administered on 19:52; Start 02/22/18 at 09:00 Oxycodone/ Acetaminophen (Percocet 10/325) 1 tab PRN Q4HRS PRN PO PAIN Last administered on 03/17/18 17:39; Start 02/22/18 at 05:00 Amlodipine Besylate (Norvasc) 10 mg DAILY PO Last administered on 03/18/18 07: 50; Start 02/22/18 at 09:00 Ascorbic Acid (Vitamin C) 500 mg DAILY PO Last administered on 03/18/18 07:50; Start 02/22/18 at 09:00 Budesonide (Pulmicort) 0.5 mg RTBID NEB Last administered on 03/18/18 19:52; Start 02/22/18 at 08:00 Celecoxib (CeleBREX) 100 mg BID PO Last administered on 03/04/18 07:58; Start 02/22/18 at 09:00; Stop 03/04/18 at 17:39; Status DC Artificial Tears (Artificial Tears) 1 drop TID PRN PRN OU DRY EYE; Start at 05:30 Famotidine (Pepcid) 20 mg DAILY PO Last administered on 03/18/18 07:50; Start 02/22/18 at 09:00 Guaifenesin (Robitussin Dm) 10 ml PRN Q4HRS PRN PO COUGH; Start 02/22/18 at 05: 30 Hydrocortisone Acetate (Anucort-Hc) 25 mg PRN Q12HR PRN [place] RECTAL PAIN; Start 02/22/18 at 05:30 Levetiracetam (Keppra) 500 mg BID PO Last administered on 03/18/18 19:49; Start 02/22/18 at 09:00 Loperamide HCl (Imodium) 2 mg PRN Q4HRS PRN PO DIARRHEA; Start 02/22/18 at 05: 30 Ondansetron HCl (Zofran Odt) 4 mg PRN Q4HRS PRN PO NAUSEA/VOMITING; Start 02/22 at 05:30 Pioglitazone HCl (Actos) 15 mg DAILY PO Last administered on 03/18/18 07:49; Start 02/22/18 at 09:00 Multi-Ingredient Ointment (Analgesic [place]) 1 sam PRN QID PRN TP MUSCLE PAIN; Start 02/22/18 at 05:00 Insulin Human Lispro (HumaLOG) TIDWMEALHC SQ Last administered on 03/18/18 19: 54; Start 02/22/18 at 08:00 Mirtazapine (Remeron) 7.5 mg QHS PO Last administered on 6/8/18at 19:50; Start 02/22/18 at 21:00 Risperidone (RisperDAL) 0.375 mg BID PO Last administered on 02/26/18at 11:50; Start 02/23/18 at 21:00; Stop 02/26/18 at 19:49; Status DC Olanzapine (ZyPREXA ZYDIS) 5 mg PRN Q2HR PRN PO PSYCHOSIS Last administered on 03/18/18 07:53; Start 02/23/18 at 19:45 Divalproex Sodium (Depakote Sprinkles) 125 mg TID@0900,1300,1700 PO Last administered on 03/01/18at 17:39; Start 02/26/18 at 09:00; Stop 03/01/18 at 18:29 ; Status DC Risperidone (RisperDAL) 0.5 mg BID PO Last administered on 03/01/18at 10:17; Start 02/26/18 at 21:00; Stop 03/01/18 at 18:29; Status DC Divalproex Sodium (Depakote Sprinkles) 250 mg TID@0900,1300,1700 PO Last administered on 03/04/18 17:59; Start 03/02/18 at 09:00; Stop 03/04/18 at 19:22 ; Status DC Risperidone (RisperDAL) 0.75 mg BID PO Last administered on 03/13/18 07:42; Start 03/01/18 at 21:00; Stop 03/13/18 at 15:04; Status DC Divalproex Sodium (Depakote Er) 1,000 mg QHS PO Last administered on 03/06/18 19:17; Start 03/04/18 at 21:00; Stop 03/07/18 at 19:54; Status DC Divalproex Sodium (Depakote Er) 1,000 mg QHS PO Last administered on 03/14/18 21:12; Start 03/07/18 at 21:00; Stop 03/15/18 at 18:49; Status DC Divalproex Sodium (Depakote Er) 250 mg QHS PO Last administered on 03/14/18 21: 12; Start 03/07/18 at 21:00; Stop 03/15/18 at 18:49; Status DC Alprazolam (Xanax) 0.25 mg QHS PO Last administered on 03/18/18at 19:52; Start at 21:00; Stop 03/27/18 at 23:00 Risperidone (RisperDAL) 0.75 mg HS PO Last administered on 03/14/18at 21:12; Start 03/13/18 at 21:00; Stop 03/15/18 at 18:49; Status DC Oxcarbazepine (Trileptal) 150 mg BID PO Last administered on 03/18/18at 19:52; Start 03/18/18 at 21:00 Active Scripts Active Reported Novolog Flexpen (Insulin Aspart) 100 Unit/1 Ml Insuln.pen 2-10 Units SQ TIDWMEALHC Risperdal (Risperidone) 0.25 Mg Tablet 0.25 Mg BID Cymbalta (Duloxetine Hcl) 60 Mg Capsule.dr 60 Mg PO DAILY Famotidine 20 Mg Tablet 20 Mg PO BID Mag-Al Plus Xs Suspension (Mag Hydrox/Al Hydrox/Simeth) 30 Ml Oral.susp 15 Ml PO PRN AFTMEALHC PRN Celebrex (Celecoxib) 100 Mg Capsule 100 Mg PO BID Vitamin C (Ascorbate Calcium) 500 Mg Tablet 500 Mg PO DAILY Robitussin Cough-Chest Dm Liq (Guaifenesin/Dextromethorphan) 237 Ml Liquid 10 Ml PO PRN Q4HRS PRN Percocet 10-325 Mg Tablet (Oxycodone Hcl/Acetaminophen) 1 Each Tablet 1 Tab PO PRN Q4HRS PRN Percocet 10-325 Mg Tablet (Oxycodone Hcl/Acetaminophen) 1 Each Tablet 1 Tab PO BID Ondansetron Hcl 4 Mg Tablet 4 Mg PO PRN Q4HRS PRN Nystatin 15 Gm Powder 1 Sam TP PRN TID PRN Nitrostat (Nitroglycerin) 0.4 Mg Tab.subl 0.4 Mg SL PRN Q5MIN PRN MDD 3tabs Melatonin 5 Mg Tablet (Melatonin/Pyridoxine) 1 Each Tablet 6 Mg PO QHS Loperamide (Loperamide Hcl) 2 Mg Tablet 2 Mg PO PRN Q4HRS PRN MDD 16mg Keppra (Levetiracetam) 500 Mg Tablet 500 Mg PO BID Ferrous Sulfate 325 Mg Tablet 325 Mg PO DAILY Neurontin (Gabapentin) 300 Mg Capsule 300 Mg PO TID Voltaren (Diclofenac Sodium) 100 Gm Gel..gram. 4 Gm TP PRN QID PRN Budesonide 0.5 Mg/2 Ml Ampul.neb 0.5 Mg NEB PRN BID PRN Dicyclomine Hcl 10 Mg Capsule 10 Mg PO PRN Q8HRS PRN Artificial Tears Eye Drops (Dextran 70/Hypromellose) 15 Ml Drops 1 Drop OU TID PRN Anusol-Hc (Hydrocortisone Acetate) 25 Mg Supp.rect 25 Mg RC PRN Q12HR PRN Anusol-Hc (Hydrocortisone) 30 Gm Cream..g. 1 Sam RC PRN Q24HRS PRN Norvasc (Amlodipine Besylate) 10 Mg Tablet 10 Mg PO DAILY Alprazolam 0.5 Mg Tablet 0.5 Mg PO HS Tylenol (Acetaminophen) 325 Mg Tablet 650 Mg PO PRN Q6HRS PRN Albuterol Sulfate Neb Soln (Albuterol Sulfate) 2.5 Mg/3 Ml Vial.neb 2.5 Mg NEB PRN Q4HRS PRN Milk Of Magnesia (Magnesium Hydroxide) 400 Mg/5 Ml Oral.susp 2,400 Mg PO PRN QHS PRN Actos (Pioglitazone Hcl) 15 Mg Tablet 15 Mg PO [id number] I have reviewed the current psychotropics carefully including drug interactions. Risk benefit ratio favors no change other than as noted in my dictated progress note. Diagnosis: Problems: (1) Anxiety disorder (2) Impulse control disorder (3) Major depressive disorder, recurrent episode (4) Mild cognitive impairment BEA SAWANT MD Mar 18, 2018 23:14
[2018-03-19 05:43] VITALS: BP 151/66
[2018-03-19] MEDS: INSULIN LISPRO 300 UNITS/3 ML INSULN.PEN. SQ SCH ×4 (08:00→21:34)
[2018-03-19] MEDS: FERROUS SULFATE 325 MG TABLET. PO SCH (10:36)
[2018-03-19] MEDS: GABAPENTIN 300 MG CAPSULE. PO SCH ×2 (10:36→21:29)
[2018-03-19] MEDS: FAMOTIDINE 20 MG TABLET PO SCH (10:37)
[2018-03-19] MEDS: DULoxetine HCL 60 MG CAPSULE.DR PO SCH (10:37)
[2018-03-19] MEDS: levETIRAcetam 500 MG TABLET PO SCH ×2 (10:37→21:29)
[2018-03-19] MEDS: ASCORBIC ACID 500 MG TABLET PO SCH (10:37)
[2018-03-19] MEDS: amLODIPine BESYLATE 10 MG TABLET PO SCH (10:37)
[2018-03-19] MEDS: PIOGLITAZONE 15 MG TABLET. PO SCH (10:37)
[2018-03-19] MEDS: OXcarbazepine 150 MG TABLET. PO SCH ×2 (10:37→21:29)
[2018-03-19] MEDS: oxyCODONE/APAP 10/325 1 TAB TABLET PO SCH ×2 (10:39→21:32)
[2018-03-19] MEDS: BUDESONIDE 0.5 MG/2 ML NEBU NEB SCH ×2 (11:34→20:14)
--- NOTE | 2018-03-19 13:09 | PN ---
DATE: 03/18/2018 This late entry, 03/18/2018, covers elements not covered in my initial note of 03/18/2018. SUBJECTIVE: I met with the patient in the evening. The patient slept 8-1/4 hours. UA is negative. She has been quite labile, anxious, using profanities towards nursing staff, referring to nursing staff that "bitches, whores." At times, she sits quietly in her room. Remains psychotic with marked mood lability, confused. REVIEW OF SYSTEMS: Ambulation impaired, in wheelchair. No CV, , pulmonary, eye, ENT system symptoms on review. Reliability poor. MENTAL STATUS EXAM: Oriented to herself. Insight, judgment, recent and remote memory, attention, concentration, and fund of knowledge poor consistent with her diagnosis. She still feels she is at congregational despite me trying to correct her multiple times. LABORATORY DATA: Reviewed. IMPRESSION: Bipolar 1 disorder, mixed with psychotic features; major neurocognitive disorder, Alzheimer, vascular with delusion, depression, behavioral disturbance. UA is negative. PLAN: Continue current psychotropics. Start Trileptal 150 mg 9:00 a.m. and 1:00 p.m. for her mood disorder. Continue rest unchanged, Cymbalta, melatonin, Zyprexa p.r.n., Remeron 7.5 at bedtime. MAN Farrah SAWANT MD DR: MARK/daphne JOB#: [id number] / [id number]
[2018-03-19 16:23] VITALS: BP 134/59
[2018-03-19] MEDS: MIRTAZAPINE 7.5 MG TABLET. PO SCH (21:29)
[2018-03-19] MEDS: MELATONIN 3 MG TABLET PO SCH (21:29)
[2018-03-19] MEDS: ALPRAZolam 0.25 MG TABLET PO SCH (21:32)
[2018-03-20 05:40] VITALS: BP 146/77
[2018-03-20] MEDS: INSULIN LISPRO 300 UNITS/3 ML INSULN.PEN. SQ SCH ×4 (08:00→20:33)
[2018-03-20] MEDS: levETIRAcetam 500 MG TABLET PO SCH ×2 (08:13→19:52)
[2018-03-20] MEDS: DULoxetine HCL 60 MG CAPSULE.DR PO SCH (08:13)
[2018-03-20] MEDS: GABAPENTIN 300 MG CAPSULE. PO SCH ×2 (08:13→19:52)
[2018-03-20] MEDS: OXcarbazepine 150 MG TABLET. PO SCH ×2 (08:13→19:52)
[2018-03-20] MEDS: FERROUS SULFATE 325 MG TABLET. PO SCH (08:13)
[2018-03-20] MEDS: amLODIPine BESYLATE 10 MG TABLET PO SCH (08:14)
[2018-03-20] MEDS: PIOGLITAZONE 15 MG TABLET. PO SCH (08:14)
[2018-03-20] MEDS: ASCORBIC ACID 500 MG TABLET PO SCH (08:14)
[2018-03-20] MEDS: FAMOTIDINE 20 MG TABLET PO SCH (08:14)
[2018-03-20] MEDS: oxyCODONE/APAP 10/325 1 TAB TABLET PO SCH ×2 (08:16→19:52)
[2018-03-20] MEDS: MAGNESIUM HYDROXIDE 2,400 MG/30 ML ORAL.SUSP. PO PRN (08:23)
[2018-03-20] MEDS: BUDESONIDE 0.5 MG/2 ML NEBU NEB SCH ×2 (10:50→20:35)
[2018-03-20 16:33] VITALS: BP 139/59
[2018-03-20] MEDS: MIRTAZAPINE 7.5 MG TABLET. PO SCH (19:52)
[2018-03-20] MEDS: ALPRAZolam 0.25 MG TABLET PO SCH (19:52)
[2018-03-20] MEDS: MELATONIN 3 MG TABLET PO SCH (19:53)
--- NOTE | 2018-03-20 20:26 | PDOC ---
Exam Note: Neal Note: Late entry for date of service March 19, 2018. Please also refer to the separate dictated note~for this date of service dictated separately.~Patient seen individually. Discussed the patient with Nursing staff reviewed the chart.~ Reviewed interim history and current functioning. Reviewed vital signs,~Labs/ Radiology~and current medications noted below. Continue current treatment with the changes noted in the dictated addendum note Assessment: Vital Signs: VS - Last 72 Hours, by Label Date Time Temp Pulse Resp B/P (MAP) Pulse Ox O2 Delivery O2 Flow Rate FiO2 03/20/18 16:33 98.0 77 20 139/59 (85) 94 03/20/18 10:51 98 Room Air 03/20/18 08:14 88 146/77 03/20/18 05:40 99.1 88 22 146/77 (100) 94 03/19/18 20:15 100 Room Air 03/19/18 16:23 98.3 82 22 134/59 (84) 97 03/19/18 11:35 95 Room Air 03/19/18 10:37 78 151/66 03/19/18 05:43 98.1 78 16 151/66 (94) 98 03/18/18 19:55 100 Room Air 03/18/18 15:55 98.1 83 18 132/80 (97) 97 03/18/18 07:50 83 129/54 03/18/18 05:48 96.5 83 12 129/54 (79) 95 Vital Signs Date Time Temp Pulse Resp B/P (MAP) Pulse Ox O2 Delivery O2 Flow Rate FiO2 03/20/18 16:33 98.0 77 20 139/59 (85) 94 03/20/18 10:51 Room Air I&O Intake and Output 03/20/18 07:00 Intake Total 1200 ml Balance 1200 ml Intake Oral 1200 ml # Voids 1 Labs: Laboratory Tests Test 03/20/18 07:50 03/20/18 11:49 03/20/18 16:38 Glucose (Fingerstick) 147 mg/dL (70-99) H 390 mg/dL (70-99) H 325 mg/dL (70-99) H Current Medications: Meds: Current Medications Acetaminophen (Tylenol) 1,000 mg 1X ONCE PO Last administered on 02/22/18at 03: 05; Start 02/22/18 at 03:30; Stop 02/22/18 at 03:31; Status DC Alprazolam (Xanax) 0.5 mg QHS PO Last administered on 03/11/18 19:50; Start at 21:00; Stop 03/12/18 at 18:14; Status DC Duloxetine HCl (Cymbalta) 60 mg DAILY PO Last administered on 03/20/18 08:13; Start 02/22/18 at 09:00 Melatonin 6 mg QHS PO Last administered on 03/20/18at 19:53; Start 02/22/18 at 21:00 Risperidone (RisperDAL) 0.25 mg BID PO Last administered on 02/23/18at 08:51; Start 02/22/18 at 09:00; Stop 02/23/18 at 13:23; Status DC Acetaminophen (Tylenol) 650 mg PRN Q6HRS PRN PO PAIN / TEMP Last administered on 03/11/18 17:24; Start 02/22/18 at 05:00 Albuterol Sulfate (Ventolin) 2.5 mg PRN Q4HRS PRN NEB Dyspnea; Start 02/22/18 at 05:00 Diclofenac Sodium (Voltaren) 4 sam PRN QID PRN TP R Knee Pain; Start 02/22/18 at 05:00 Dicyclomine HCl (Bentyl) 10 mg PRN Q8HRS PRN PO Bowel Cramps; Start 02/22/18 at 05:00 Ferrous Sulfate (Feosol) 325 mg DAILY PO Last administered on 03/20/18at 08:13; Start 02/22/18 at 09:00 Gabapentin (Neurontin) 300 mg BID PO Last administered on 03/20/18at 19:52; Start 02/22/18 at 09:00 Hydrocortisone (Proctosol-Hc) 1 sam PRN Q24HRS PRN RC Hemorrhoids; Start at 05:00 Insulin Aspart (NovoLOG) BS 200-2,50= 2 un... TIDWMEALHC SQ ; Start 02/22/18 at 08:00; Stop 02/22/18 at 08:01; Status DC Al Hydroxide/Mg Hydroxide (Mylanta Plus Xs) 15 ml PRN AFTMEALHC PRN PO DYSPEPSIA Last administered on 03/20/18 04:14; Start 02/22/18 at 05:00 Magnesium Hydroxide (Milk Of Magnesia) 2,400 mg PRN QHS PRN PO CONSTIPATION Last administered on 03/20/18 08:23; Start 02/22/18 at 05:00 Nitroglycerin (Nitrostat) 0.4 mg PRN Q5MIN PRN SL CHEST PAIN; Start 02/22/18 at 05:00 Nystatin (Nystop) 1 sam PRN TID PRN TP REDNESS; Start 02/22/18 at 05:00 Oxycodone/ Acetaminophen (Percocet 10/325) 1 tab BID PO Last administered on 19:52; Start 02/22/18 at 09:00 Oxycodone/ Acetaminophen (Percocet 10/325) 1 tab PRN Q4HRS PRN PO PAIN Last administered on 03/17/18 17:39; Start 02/22/18 at 05:00 Amlodipine Besylate (Norvasc) 10 mg DAILY PO Last administered on 03/20/18 08: 14; Start 02/22/18 at 09:00 Ascorbic Acid (Vitamin C) 500 mg DAILY PO Last administered on 03/20/18 08:14 ; Start 02/22/18 at 09:00 Budesonide (Pulmicort) 0.5 mg RTBID NEB Last administered on 03/20/18 10:50; Start 02/22/18 at 08:00 Celecoxib (CeleBREX) 100 mg BID PO Last administered on 03/04/18 07:58; Start 02/22/18 at 09:00; Stop 03/04/18 at 17:39; Status DC Artificial Tears (Artificial Tears) 1 drop TID PRN PRN OU DRY EYE; Start at 05:30 Famotidine (Pepcid) 20 mg DAILY PO Last administered on 03/20/18 08:14; Start 02/22/18 at 09:00 Guaifenesin (Robitussin Dm) 10 ml PRN Q4HRS PRN PO COUGH; Start 02/22/18 at 05: 30 Hydrocortisone Acetate (Anucort-Hc) 25 mg PRN Q12HR PRN [place] RECTAL PAIN; Start 02/22/18 at 05:30 Levetiracetam (Keppra) 500 mg BID PO Last administered on 03/20/18 19:52; Start 02/22/18 at 09:00 Loperamide HCl (Imodium) 2 mg PRN Q4HRS PRN PO DIARRHEA; Start 02/22/18 at 05: 30 Ondansetron HCl (Zofran Odt) 4 mg PRN Q4HRS PRN PO NAUSEA/VOMITING; Start 02/22 at 05:30 Pioglitazone HCl (Actos) 15 mg DAILY PO Last administered on 03/20/18at 08:14; Start 02/22/18 at 09:00 Multi-Ingredient Ointment (Analgesic [place]) 1 sam PRN QID PRN TP MUSCLE PAIN; Start 02/22/18 at 05:00 Insulin Human Lispro (HumaLOG) TIDWMEALHC SQ Last administered on 03/20/18 17 :17; Start 02/22/18 at 08:00 Mirtazapine (Remeron) 7.5 mg QHS PO Last administered on 03/20/18 19:52; Start 02/22/18 at 21:00 Risperidone (RisperDAL) 0.375 mg BID PO Last administered on 02/26/18at 11:50; Start 02/23/18 at 21:00; Stop 02/26/18 at 19:49; Status DC Olanzapine (ZyPREXA ZYDIS) 5 mg PRN Q2HR PRN PO PSYCHOSIS Last administered on 03/18/18at 07:53; Start 02/23/18 at 19:45 Divalproex Sodium (Depakote Sprinkles) 125 mg TID@0900,1300,1700 PO Last administered on 03/01/18 17:39; Start 02/26/18 at 09:00; Stop 03/01/18 at 18:29 ; Status DC Risperidone (RisperDAL) 0.5 mg BID PO Last administered on 03/01/18at 10:17; Start 02/26/18 at 21:00; Stop 03/01/18 at 18:29; Status DC Divalproex Sodium (Depakote Sprinkles) 250 mg TID@0900,1300,1700 PO Last administered on 03/04/18at 17:59; Start 03/02/18 at 09:00; Stop 03/04/18 at 19:22 ; Status DC Risperidone (RisperDAL) 0.75 mg BID PO Last administered on 03/13/18at 07:42; Start 03/01/18 at 21:00; Stop 03/13/18 at 15:04; Status DC Divalproex Sodium (Depakote Er) 1,000 mg QHS PO Last administered on 03/06/18at 19:17; Start 03/04/18 at 21:00; Stop 03/07/18 at 19:54; Status DC Divalproex Sodium (Depakote Er) 1,000 mg QHS PO Last administered on 03/14/18 21:12; Start 03/07/18 at 21:00; Stop 03/15/18 at 18:49; Status DC Divalproex Sodium (Depakote Er) 250 mg QHS PO Last administered on 03/14/18 21: 12; Start 03/07/18 at 21:00; Stop 03/15/18 at 18:49; Status DC Alprazolam (Xanax) 0.25 mg QHS PO Last administered on 03/20/18 19:52; Start 03/13/18 at 21:00; Stop 03/27/18 at 23:00 Risperidone (RisperDAL) 0.75 mg HS PO Last administered on 03/14/18 21:12; Start 03/13/18 at 21:00; Stop 03/15/18 at 18:49; Status DC Oxcarbazepine (Trileptal) 150 mg BID PO Last administered on 03/20/18at 19:52; Start 03/18/18 at 21:00 Active Scripts Active Reported Novolog Flexpen (Insulin Aspart) 100 Unit/1 Ml Insuln.pen 2-10 Units SQ TIDWMEALHC Risperdal (Risperidone) 0.25 Mg Tablet 0.25 Mg BID Cymbalta (Duloxetine Hcl) 60 Mg Capsule.dr 60 Mg PO DAILY Famotidine 20 Mg Tablet 20 Mg PO BID Mag-Al Plus Xs Suspension (Mag Hydrox/Al Hydrox/Simeth) 30 Ml Oral.susp 15 Ml PO PRN AFTMEALHC PRN Celebrex (Celecoxib) 100 Mg Capsule 100 Mg PO BID Vitamin C (Ascorbate Calcium) 500 Mg Tablet 500 Mg PO DAILY Robitussin Cough-Chest Dm Liq (Guaifenesin/Dextromethorphan) 237 Ml Liquid 10 Ml PO PRN Q4HRS PRN Percocet 10-325 Mg Tablet (Oxycodone Hcl/Acetaminophen) 1 Each Tablet 1 Tab PO PRN Q4HRS PRN Percocet 10-325 Mg Tablet (Oxycodone Hcl/Acetaminophen) 1 Each Tablet 1 Tab PO BID Ondansetron Hcl 4 Mg Tablet 4 Mg PO PRN Q4HRS PRN Nystatin 15 Gm Powder 1 Sam TP PRN TID PRN Nitrostat (Nitroglycerin) 0.4 Mg Tab.subl 0.4 Mg SL PRN Q5MIN PRN MDD 3tabs Melatonin 5 Mg Tablet (Melatonin/Pyridoxine) 1 Each Tablet 6 Mg PO QHS Loperamide (Loperamide Hcl) 2 Mg Tablet 2 Mg PO PRN Q4HRS PRN MDD 16mg Keppra (Levetiracetam) 500 Mg Tablet 500 Mg PO BID Ferrous Sulfate 325 Mg Tablet 325 Mg PO DAILY Neurontin (Gabapentin) 300 Mg Capsule 300 Mg PO TID Voltaren (Diclofenac Sodium) 100 Gm Gel..gram. 4 Gm TP PRN QID PRN Budesonide 0.5 Mg/2 Ml Ampul.neb 0.5 Mg NEB PRN BID PRN Dicyclomine Hcl 10 Mg Capsule 10 Mg PO PRN Q8HRS PRN Artificial Tears Eye Drops (Dextran 70/Hypromellose) 15 Ml Drops 1 Drop OU TID PRN Anusol-Hc (Hydrocortisone Acetate) 25 Mg Supp.rect 25 Mg RC PRN Q12HR PRN Anusol-Hc (Hydrocortisone) 30 Gm Cream..g. 1 Sam RC PRN Q24HRS PRN Norvasc (Amlodipine Besylate) 10 Mg Tablet 10 Mg PO DAILY Alprazolam 0.5 Mg Tablet 0.5 Mg PO HS Tylenol (Acetaminophen) 325 Mg Tablet 650 Mg PO PRN Q6HRS PRN Albuterol Sulfate Neb Soln (Albuterol Sulfate) 2.5 Mg/3 Ml Vial.neb 2.5 Mg NEB PRN Q4HRS PRN Milk Of Magnesia (Magnesium Hydroxide) 400 Mg/5 Ml Oral.susp 2,400 Mg PO PRN QHS PRN Actos (Pioglitazone Hcl) 15 Mg Tablet 15 Mg PO DAILYWBKFT I have reviewed the current psychotropics carefully including drug interactions. Risk benefit ratio favors no change other than as noted in my dictated progress note. Diagnosis: Problems: (1) Anxiety disorder (2) Impulse control disorder (3) Major depressive disorder, recurrent episode (4) Mild cognitive impairment BEA SAWANT MD Mar 20, 2018 20:26
--- NOTE | 2018-03-20 20:27 | PDOC ---
Exam Note: Neal Note: Please also refer to the separate dictated note~for this date of service dictated separately.~Patient seen individually. Discussed the patient with Nursing staff reviewed the chart.~Reviewed interim history and current functioning. Reviewed vital signs,~Labs/ Radiology~and current medications noted below. Continue current treatment with the changes noted in the dictated addendum note Assessment: Vital Signs: Vital Signs Date Time Temp Pulse Resp B/P (MAP) Pulse Ox O2 Delivery O2 Flow Rate FiO2 03/20/18 16:33 98.0 77 20 139/59 (85) 94 03/20/18 10:51 Room Air I&O Intake and Output 03/20/18 07:00 Intake Total 1200 ml Balance 1200 ml Intake Oral 1200 ml # Voids 1 Labs: Laboratory Tests Test 03/20/18 07:50 03/20/18 11:49 03/20/18 16:38 Glucose (Fingerstick) 147 mg/dL (70-99) H 390 mg/dL (70-99) H 325 mg/dL (70-99) H Current Medications: Meds: Current Medications Acetaminophen (Tylenol) 1,000 mg 1X ONCE PO Last administered on 02/22/18at 03: 05; Start 02/22/18 at 03:30; Stop 02/22/18 at 03:31; Status DC Alprazolam (Xanax) 0.5 mg QHS PO Last administered on 03/11/18at 19:50; Start at 21:00; Stop 03/12/18 at 18:14; Status DC Duloxetine HCl (Cymbalta) 60 mg DAILY PO Last administered on 03/20/18at 08:13; Start 02/22/18 at 09:00 Melatonin 6 mg QHS PO Last administered on 03/20/18 19:53; Start 02/22/18 at 21:00 Risperidone (RisperDAL) 0.25 mg BID PO Last administered on 02/23/18at 08:51; Start 02/22/18 at 09:00; Stop 02/23/18 at 13:23; Status DC Acetaminophen (Tylenol) 650 mg PRN Q6HRS PRN PO PAIN / TEMP Last administered on 03/11/18at 17:24; Start 02/22/18 at 05:00 Albuterol Sulfate (Ventolin) 2.5 mg PRN Q4HRS PRN NEB Dyspnea; Start 02/22/18 at 05:00 Diclofenac Sodium (Voltaren) 4 sam PRN QID PRN TP R Knee Pain; Start 02/22/18 at 05:00 Dicyclomine HCl (Bentyl) 10 mg PRN Q8HRS PRN PO Bowel Cramps; Start 02/22/18 at 05:00 Ferrous Sulfate (Feosol) 325 mg DAILY PO Last administered on 03/20/18 08:13; Start 02/22/18 at 09:00 Gabapentin (Neurontin) 300 mg BID PO Last administered on 03/20/18 19:52; Start 02/22/18 at 09:00 Hydrocortisone (Proctosol-Hc) 1 sam PRN Q24HRS PRN RC Hemorrhoids; Start at 05:00 Insulin Aspart (NovoLOG) BS 200-2,50= 2 un... TIDWMEALHC SQ ; Start 02/22/18 at 08:00; Stop 02/22/18 at 08:01; Status DC Al Hydroxide/Mg Hydroxide (Mylanta Plus Xs) 15 ml PRN AFTMEALHC PRN PO DYSPEPSIA Last administered on 03/20/18 04:14; Start 02/22/18 at 05:00 Magnesium Hydroxide (Milk Of Magnesia) 2,400 mg PRN QHS PRN PO CONSTIPATION Last administered on 03/20/18 08:23; Start 02/22/18 at 05:00 Nitroglycerin (Nitrostat) 0.4 mg PRN Q5MIN PRN SL CHEST PAIN; Start 02/22/18 at 05:00 Nystatin (Nystop) 1 sam PRN TID PRN TP REDNESS; Start 02/22/18 at 05:00 Oxycodone/ Acetaminophen (Percocet 10/325) 1 tab BID PO Last administered on 19:52; Start 02/22/18 at 09:00 Oxycodone/ Acetaminophen (Percocet 10/325) 1 tab PRN Q4HRS PRN PO PAIN Last administered on 03/17/18 17:39; Start 02/22/18 at 05:00 Amlodipine Besylate (Norvasc) 10 mg DAILY PO Last administered on 03/20/18 08: 14; Start 02/22/18 at 09:00 Ascorbic Acid (Vitamin C) 500 mg DAILY PO Last administered on 03/20/18 08:14 ; Start 02/22/18 at 09:00 Budesonide (Pulmicort) 0.5 mg RTBID NEB Last administered on 03/20/18 10:50; Start 02/22/18 at 08:00 Celecoxib (CeleBREX) 100 mg BID PO Last administered on 03/04/18at 07:58; Start 02/22/18 at 09:00; Stop 03/04/18 at 17:39; Status DC Artificial Tears (Artificial Tears) 1 drop TID PRN PRN OU DRY EYE; Start at 05:30 Famotidine (Pepcid) 20 mg DAILY PO Last administered on 03/20/18 08:14; Start 02/22/18 at 09:00 Guaifenesin (Robitussin Dm) 10 ml PRN Q4HRS PRN PO COUGH; Start 02/22/18 at 05: 30 Hydrocortisone Acetate (Anucort-Hc) 25 mg PRN Q12HR PRN [place] RECTAL PAIN; Start 02/22/18 at 05:30 Levetiracetam (Keppra) 500 mg BID PO Last administered on 03/20/18 19:52; Start 02/22/18 at 09:00 Loperamide HCl (Imodium) 2 mg PRN Q4HRS PRN PO DIARRHEA; Start 02/22/18 at 05: 30 Ondansetron HCl (Zofran Odt) 4 mg PRN Q4HRS PRN PO NAUSEA/VOMITING; Start 02/22 at 05:30 Pioglitazone HCl (Actos) 15 mg DAILY PO Last administered on 03/20/18 08:14; Start 02/22/18 at 09:00 Multi-Ingredient Ointment (Analgesic [place]) 1 sam PRN QID PRN TP MUSCLE PAIN; Start 02/22/18 at 05:00 Insulin Human Lispro (HumaLOG) TIDWMEALHC SQ Last administered on 03/20/18 17 :17; Start 02/22/18 at 08:00 Mirtazapine (Remeron) 7.5 mg QHS PO Last administered on 6/10/18at 19:52; Start 02/22/18 at 21:00 Risperidone (RisperDAL) 0.375 mg BID PO Last administered on 02/26/18at 11:50; Start 02/23/18 at 21:00; Stop 02/26/18 at 19:49; Status DC Olanzapine (ZyPREXA ZYDIS) 5 mg PRN Q2HR PRN PO PSYCHOSIS Last administered on 03/18/18at 07:53; Start 02/23/18 at 19:45 Divalproex Sodium (Depakote Sprinkles) 125 mg TID@0900,1300,1700 PO Last administered on 03/01/18at 17:39; Start 02/26/18 at 09:00; Stop 03/01/18 at 18:29 ; Status DC Risperidone (RisperDAL) 0.5 mg BID PO Last administered on 03/01/18at 10:17; Start 02/26/18 at 21:00; Stop 03/01/18 at 18:29; Status DC Divalproex Sodium (Depakote Sprinkles) 250 mg TID@0900,1300,1700 PO Last administered on 03/04/18at 17:59; Start 03/02/18 at 09:00; Stop 03/04/18 at 19:22 ; Status DC Risperidone (RisperDAL) 0.75 mg BID PO Last administered on 03/13/18 07:42; Start 03/01/18 at 21:00; Stop 03/13/18 at 15:04; Status DC Divalproex Sodium (Depakote Er) 1,000 mg QHS PO Last administered on 03/06/18at 19:17; Start 03/04/18 at 21:00; Stop 03/07/18 at 19:54; Status DC Divalproex Sodium (Depakote Er) 1,000 mg QHS PO Last administered on 03/14/18 21:12; Start 03/07/18 at 21:00; Stop 03/15/18 at 18:49; Status DC Divalproex Sodium (Depakote Er) 250 mg QHS PO Last administered on 03/14/18 21: 12; Start 03/07/18 at 21:00; Stop 03/15/18 at 18:49; Status DC Alprazolam (Xanax) 0.25 mg QHS PO Last administered on 03/20/18at 19:52; Start 03/13/18 at 21:00; Stop 03/27/18 at 23:00 Risperidone (RisperDAL) 0.75 mg HS PO Last administered on 03/14/18at 21:12; Start 03/13/18 at 21:00; Stop 03/15/18 at 18:49; Status DC Oxcarbazepine (Trileptal) 150 mg BID PO Last administered on 03/20/18at 19:52; Start 03/18/18 at 21:00 Active Scripts Active Reported Novolog Flexpen (Insulin Aspart) 100 Unit/1 Ml Insuln.pen 2-10 Units SQ TIDWMEALHC Risperdal (Risperidone) 0.25 Mg Tablet 0.25 Mg BID Cymbalta (Duloxetine Hcl) 60 Mg Capsule.dr 60 Mg PO DAILY Famotidine 20 Mg Tablet 20 Mg PO BID Mag-Al Plus Xs Suspension (Mag Hydrox/Al Hydrox/Simeth) 30 Ml Oral.susp 15 Ml PO PRN AFTMEALHC PRN Celebrex (Celecoxib) 100 Mg Capsule 100 Mg PO BID Vitamin C (Ascorbate Calcium) 500 Mg Tablet 500 Mg PO DAILY Robitussin Cough-Chest Dm Liq (Guaifenesin/Dextromethorphan) 237 Ml Liquid 10 Ml PO PRN Q4HRS PRN Percocet 10-325 Mg Tablet (Oxycodone Hcl/Acetaminophen) 1 Each Tablet 1 Tab PO PRN Q4HRS PRN Percocet 10-325 Mg Tablet (Oxycodone Hcl/Acetaminophen) 1 Each Tablet 1 Tab PO BID Ondansetron Hcl 4 Mg Tablet 4 Mg PO PRN Q4HRS PRN Nystatin 15 Gm Powder 1 Sam TP PRN TID PRN Nitrostat (Nitroglycerin) 0.4 Mg Tab.subl 0.4 Mg SL PRN Q5MIN PRN MDD 3tabs Melatonin 5 Mg Tablet (Melatonin/Pyridoxine) 1 Each Tablet 6 Mg PO QHS Loperamide (Loperamide Hcl) 2 Mg Tablet 2 Mg PO PRN Q4HRS PRN MDD 16mg Keppra (Levetiracetam) 500 Mg Tablet 500 Mg PO BID Ferrous Sulfate 325 Mg Tablet 325 Mg PO DAILY Neurontin (Gabapentin) 300 Mg Capsule 300 Mg PO TID Voltaren (Diclofenac Sodium) 100 Gm Gel..gram. 4 Gm TP PRN QID PRN Budesonide 0.5 Mg/2 Ml Ampul.neb 0.5 Mg NEB PRN BID PRN Dicyclomine Hcl 10 Mg Capsule 10 Mg PO PRN Q8HRS PRN Artificial Tears Eye Drops (Dextran 70/Hypromellose) 15 Ml Drops 1 Drop OU TID PRN Anusol-Hc (Hydrocortisone Acetate) 25 Mg Supp.rect 25 Mg RC PRN Q12HR PRN Anusol-Hc (Hydrocortisone) 30 Gm Cream..g. 1 Sam RC PRN Q24HRS PRN Norvasc (Amlodipine Besylate) 10 Mg Tablet 10 Mg PO DAILY Alprazolam 0.5 Mg Tablet 0.5 Mg PO HS Tylenol (Acetaminophen) 325 Mg Tablet 650 Mg PO PRN Q6HRS PRN Albuterol Sulfate Neb Soln (Albuterol Sulfate) 2.5 Mg/3 Ml Vial.neb 2.5 Mg NEB PRN Q4HRS PRN Milk Of Magnesia (Magnesium Hydroxide) 400 Mg/5 Ml Oral.susp 2,400 Mg PO PRN QHS PRN Actos (Pioglitazone Hcl) 15 Mg Tablet 15 Mg PO [id number] I have reviewed the current psychotropics carefully including drug interactions. Risk benefit ratio favors no change other than as noted in my dictated progress note. Diagnosis: Problems: (1) Anxiety disorder (2) Impulse control disorder (3) Major depressive disorder, recurrent episode (4) Mild cognitive impairment BEA SAWANT MD Mar 20, 2018 20:27
[2018-03-21 06:26] VITALS: BP 150/83
[2018-03-21] MEDS: INSULIN LISPRO 300 UNITS/3 ML INSULN.PEN. SQ SCH ×4 (08:00→20:00)
[2018-03-21] MEDS: BUDESONIDE 0.5 MG/2 ML NEBU NEB SCH ×2 (08:00→20:27)
[2018-03-21] MEDS: FAMOTIDINE 20 MG TABLET PO SCH (08:32)
[2018-03-21] MEDS: levETIRAcetam 500 MG TABLET PO SCH ×2 (08:32→19:57)
[2018-03-21] MEDS: amLODIPine BESYLATE 10 MG TABLET PO SCH (08:33)
[2018-03-21] MEDS: ASCORBIC ACID 500 MG TABLET PO SCH (08:33)
[2018-03-21] MEDS: OXcarbazepine 150 MG TABLET. PO SCH ×2 (08:33→19:57)
[2018-03-21] MEDS: DULoxetine HCL 60 MG CAPSULE.DR PO SCH (08:33)
[2018-03-21] MEDS: GABAPENTIN 300 MG CAPSULE. PO SCH ×2 (08:33→19:57)
[2018-03-21] MEDS: PIOGLITAZONE 15 MG TABLET. PO SCH (08:33)
[2018-03-21] MEDS: FERROUS SULFATE 325 MG TABLET. PO SCH (08:34)
[2018-03-21] MEDS: oxyCODONE/APAP 10/325 1 TAB TABLET PO SCH ×2 (08:34→19:59)
--- NOTE | 2018-03-21 13:12 | PN ---
DATE: 03/19/2018 PSYCHIATRIC PROGRESS NOTE This is a late entry 03/19/2018, covers elements not covered in my initial note. SUBJECTIVE: I met with the patient in the evening. The patient's blood sugar has been elevated. We will defer to Dr. Mcguire. Anxious, labile at times, slept until lunchtime, delusional about . REVIEW OF SYSTEMS: Ambulation impaired, in wheelchair. No CV, , pulmonary, eye, ENT system symptoms on review. Reliability poor. MENTAL STATUS EXAM: Oriented to herself. Insight, judgment, recent and remote memory, attention, concentration, fund of knowledge poor, consistent with her diagnoses. IMPRESSION: Major neurocognitive disorder, Alzheimer, vascular with delusion, depression, bipolar 1 disorder, mixed with psychotic features. PLAN: Continue Cymbalta, melatonin. Xanax has been stopped. Continue Remeron. Adjust further as clinically indicated. BEA SAWANT MD DR: MARK/daphne JOB#: [id number] / [id number]
[2018-03-21 16:06] VITALS: BP 150/73
[2018-03-21] MEDS: MIRTAZAPINE 7.5 MG TABLET. PO SCH (19:57)
[2018-03-21] MEDS: MELATONIN 3 MG TABLET PO SCH (19:57)
[2018-03-21] MEDS: ALPRAZolam 0.25 MG TABLET PO SCH (19:59)
--- NOTE | 2018-03-21 20:49 | PDOC ---
Exam Note: Neal Note: Please also refer to the separate dictated note~for this date of service dictated separately.~Patient seen individually. Discussed the patient with Nursing staff reviewed the chart.~Reviewed interim history and current functioning. Reviewed vital signs,~Labs/ Radiology~and current medications noted below. Continue current treatment with the changes noted in the dictated addendum note Assessment: Vital Signs: Vital Signs Date Time Temp Pulse Resp B/P (MAP) Pulse Ox O2 Delivery O2 Flow Rate FiO2 03/21/18 20:28 96 Room Air 03/21/18 16:06 98.0 88 20 150/73 (98) I&O Intake and Output 03/21/18 07:00 Intake Total 1285 ml Balance 1285 ml Intake Oral 1285 ml # Voids 1 # Bowel Movements 1 Labs: Laboratory Tests Test 03/21/18 07:16 03/21/18 11:54 03/21/18 17:10 03/21/18 19:12 Glucose (Fingerstick) 201 mg/dL (70-99) H 178 mg/dL (70-99) H 351 mg/dL (70-99) H 259 mg/dL (70-99) H Current Medications: Meds: Current Medications Acetaminophen (Tylenol) 1,000 mg 1X ONCE PO Last administered on 02/22/18at 03: 05; Start 02/22/18 at 03:30; Stop 02/22/18 at 03:31; Status DC Alprazolam (Xanax) 0.5 mg QHS PO Last administered on 03/11/18at 19:50; Start at 21:00; Stop 03/12/18 at 18:14; Status DC Duloxetine HCl (Cymbalta) 60 mg DAILY PO Last administered on 03/21/18at 08:33; Start 02/22/18 at 09:00 Melatonin 6 mg QHS PO Last administered on 03/21/18at 19:57; Start 02/22/18 at 21:00 Risperidone (RisperDAL) 0.25 mg BID PO Last administered on 02/23/18at 08:51; Start 02/22/18 at 09:00; Stop 02/23/18 at 13:23; Status DC Acetaminophen (Tylenol) 650 mg PRN Q6HRS PRN PO PAIN / TEMP Last administered on 6/1/18at 17:24; Start 02/22/18 at 05:00 Albuterol Sulfate (Ventolin) 2.5 mg PRN Q4HRS PRN NEB Dyspnea; Start 02/22/18 at 05:00 Diclofenac Sodium (Voltaren) 4 sam PRN QID PRN TP R Knee Pain; Start 02/22/18 at 05:00 Dicyclomine HCl (Bentyl) 10 mg PRN Q8HRS PRN PO Bowel Cramps; Start 02/22/18 at 05:00 Ferrous Sulfate (Feosol) 325 mg DAILY PO Last administered on 03/21/18 08:34; Start 02/22/18 at 09:00 Gabapentin (Neurontin) 300 mg BID PO Last administered on 03/21/18 19:57; Start 02/22/18 at 09:00 Hydrocortisone (Proctosol-Hc) 1 sam PRN Q24HRS PRN RC Hemorrhoids; Start at 05:00 Insulin Aspart (NovoLOG) BS 200-2,50= 2 un... TIDWMEALHC SQ ; Start 02/22/18 at 08:00; Stop 02/22/18 at 08:01; Status DC Al Hydroxide/Mg Hydroxide (Mylanta Plus Xs) 15 ml PRN AFTMEALHC PRN PO DYSPEPSIA Last administered on 03/20/18 04:14; Start 02/22/18 at 05:00 Magnesium Hydroxide (Milk Of Magnesia) 2,400 mg PRN QHS PRN PO CONSTIPATION Last administered on 03/20/18 08:23; Start 02/22/18 at 05:00 Nitroglycerin (Nitrostat) 0.4 mg PRN Q5MIN PRN SL CHEST PAIN; Start 02/22/18 at 05:00 Nystatin (Nystop) 1 sam PRN TID PRN TP REDNESS; Start 02/22/18 at 05:00 Oxycodone/ Acetaminophen (Percocet 10/325) 1 tab BID PO Last administered on 19:59; Start 02/22/18 at 09:00 Oxycodone/ Acetaminophen (Percocet 10/325) 1 tab PRN Q4HRS PRN PO PAIN Last administered on 03/17/18 17:39; Start 02/22/18 at 05:00 Amlodipine Besylate (Norvasc) 10 mg DAILY PO Last administered on 03/21/18 08: 33; Start 02/22/18 at 09:00 Ascorbic Acid (Vitamin C) 500 mg DAILY PO Last administered on 03/21/18 08:33 ; Start 02/22/18 at 09:00 Budesonide (Pulmicort) 0.5 mg RTBID NEB Last administered on 03/21/18 20:27; Start 02/22/18 at 08:00 Celecoxib (CeleBREX) 100 mg BID PO Last administered on 03/04/18 07:58; Start 02/22/18 at 09:00; Stop 03/04/18 at 17:39; Status DC Artificial Tears (Artificial Tears) 1 drop TID PRN PRN OU DRY EYE; Start at 05:30 Famotidine (Pepcid) 20 mg DAILY PO Last administered on 03/21/18at 08:32; Start 02/22/18 at 09:00 Guaifenesin (Robitussin Dm) 10 ml PRN Q4HRS PRN PO COUGH; Start 02/22/18 at 05: 30 Hydrocortisone Acetate (Anucort-Hc) 25 mg PRN Q12HR PRN [place] RECTAL PAIN; Start 02/22/18 at 05:30 Levetiracetam (Keppra) 500 mg BID PO Last administered on 03/21/18at 19:57; Start 02/22/18 at 09:00 Loperamide HCl (Imodium) 2 mg PRN Q4HRS PRN PO DIARRHEA; Start 02/22/18 at 05: 30 Ondansetron HCl (Zofran Odt) 4 mg PRN Q4HRS PRN PO NAUSEA/VOMITING; Start 02/22 at 05:30 Pioglitazone HCl (Actos) 15 mg DAILY PO Last administered on 03/21/18 08:33; Start 02/22/18 at 09:00 Multi-Ingredient Ointment (Analgesic [place]) 1 sam PRN QID PRN TP MUSCLE PAIN; Start 02/22/18 at 05:00 Insulin Human Lispro (HumaLOG) TIDWMEALHC SQ Last administered on 03/21/18at 20 :00; Start 02/22/18 at 08:00 Mirtazapine (Remeron) 7.5 mg QHS PO Last administered on 03/21/18 19:57; Start 02/22/18 at 21:00 Risperidone (RisperDAL) 0.375 mg BID PO Last administered on 02/26/18at 11:50; Start 02/23/18 at 21:00; Stop 02/26/18 at 19:49; Status DC Olanzapine (ZyPREXA ZYDIS) 5 mg PRN Q2HR PRN PO PSYCHOSIS Last administered on 03/18/18 07:53; Start 02/23/18 at 19:45 Divalproex Sodium (Depakote Sprinkles) 125 mg TID@0900,1300,1700 PO Last administered on 03/01/18at 17:39; Start 02/26/18 at 09:00; Stop 03/01/18 at 18:29 ; Status DC Risperidone (RisperDAL) 0.5 mg BID PO Last administered on 03/01/18 10:17; Start 02/26/18 at 21:00; Stop 03/01/18 at 18:29; Status DC Divalproex Sodium (Depakote Sprinkles) 250 mg TID@0900,1300,1700 PO Last administered on 03/04/18 17:59; Start 03/02/18 at 09:00; Stop 03/04/18 at 19:22 ; Status DC Risperidone (RisperDAL) 0.75 mg BID PO Last administered on 03/13/18 07:42; Start 03/01/18 at 21:00; Stop 03/13/18 at 15:04; Status DC Divalproex Sodium (Depakote Er) 1,000 mg QHS PO Last administered on 03/06/18 19:17; Start 03/04/18 at 21:00; Stop 03/07/18 at 19:54; Status DC Divalproex Sodium (Depakote Er) 1,000 mg QHS PO Last administered on 03/14/18 21:12; Start 03/07/18 at 21:00; Stop 03/15/18 at 18:49; Status DC Divalproex Sodium (Depakote Er) 250 mg QHS PO Last administered on 03/14/18 21: 12; Start 03/07/18 at 21:00; Stop 03/15/18 at 18:49; Status DC Alprazolam (Xanax) 0.25 mg QHS PO Last administered on 03/21/18at 19:59; Start 03/13/18 at 21:00; Stop 03/27/18 at 23:00 Risperidone (RisperDAL) 0.75 mg HS PO Last administered on 03/14/18at 21:12; Start 03/13/18 at 21:00; Stop 03/15/18 at 18:49; Status DC Oxcarbazepine (Trileptal) 150 mg BID PO Last administered on 03/21/18at 19:57; Start 03/18/18 at 21:00 Active Scripts Active Reported Novolog Flexpen (Insulin Aspart) 100 Unit/1 Ml Insuln.pen 2-10 Units SQ TIDWMEALHC Risperdal (Risperidone) 0.25 Mg Tablet 0.25 Mg BID Cymbalta (Duloxetine Hcl) 60 Mg Capsule.dr 60 Mg PO DAILY Famotidine 20 Mg Tablet 20 Mg PO BID Mag-Al Plus Xs Suspension (Mag Hydrox/Al Hydrox/Simeth) 30 Ml Oral.susp 15 Ml PO PRN AFTMEALHC PRN Celebrex (Celecoxib) 100 Mg Capsule 100 Mg PO BID Vitamin C (Ascorbate Calcium) 500 Mg Tablet 500 Mg PO DAILY Robitussin Cough-Chest Dm Liq (Guaifenesin/Dextromethorphan) 237 Ml Liquid 10 Ml PO PRN Q4HRS PRN Percocet 10-325 Mg Tablet (Oxycodone Hcl/Acetaminophen) 1 Each Tablet 1 Tab PO PRN Q4HRS PRN Percocet 10-325 Mg Tablet (Oxycodone Hcl/Acetaminophen) 1 Each Tablet 1 Tab PO BID Ondansetron Hcl 4 Mg Tablet 4 Mg PO PRN Q4HRS PRN Nystatin 15 Gm Powder 1 Sam TP PRN TID PRN Nitrostat (Nitroglycerin) 0.4 Mg Tab.subl 0.4 Mg SL PRN Q5MIN PRN MDD 3tabs Melatonin 5 Mg Tablet (Melatonin/Pyridoxine) 1 Each Tablet 6 Mg PO QHS Loperamide (Loperamide Hcl) 2 Mg Tablet 2 Mg PO PRN Q4HRS PRN MDD 16mg Keppra (Levetiracetam) 500 Mg Tablet 500 Mg PO BID Ferrous Sulfate 325 Mg Tablet 325 Mg PO DAILY Neurontin (Gabapentin) 300 Mg Capsule 300 Mg PO TID Voltaren (Diclofenac Sodium) 100 Gm Gel..gram. 4 Gm TP PRN QID PRN Budesonide 0.5 Mg/2 Ml Ampul.neb 0.5 Mg NEB PRN BID PRN Dicyclomine Hcl 10 Mg Capsule 10 Mg PO PRN Q8HRS PRN Artificial Tears Eye Drops (Dextran 70/Hypromellose) 15 Ml Drops 1 Drop OU TID PRN Anusol-Hc (Hydrocortisone Acetate) 25 Mg Supp.rect 25 Mg RC PRN Q12HR PRN Anusol-Hc (Hydrocortisone) 30 Gm Cream..g. 1 Sam RC PRN Q24HRS PRN Norvasc (Amlodipine Besylate) 10 Mg Tablet 10 Mg PO DAILY Alprazolam 0.5 Mg Tablet 0.5 Mg PO HS Tylenol (Acetaminophen) 325 Mg Tablet 650 Mg PO PRN Q6HRS PRN Albuterol Sulfate Neb Soln (Albuterol Sulfate) 2.5 Mg/3 Ml Vial.neb 2.5 Mg NEB PRN Q4HRS PRN Milk Of Magnesia (Magnesium Hydroxide) 400 Mg/5 Ml Oral.susp 2,400 Mg PO PRN QHS PRN Actos (Pioglitazone Hcl) 15 Mg Tablet 15 Mg PO [id number] I have reviewed the current psychotropics carefully including drug interactions. Risk benefit ratio favors no change other than as noted in my dictated progress note. Diagnosis: Problems: (1) Anxiety disorder (2) Impulse control disorder (3) Major depressive disorder, recurrent episode (4) Mild cognitive impairment BEA SAWANT MD Mar 21, 2018 20:49
--- NOTE | 2018-03-22 02:05 | PN ---
DATE: 03/20/2018 This is a late entry for 03/20/2018 and covers elements not covered in my initial note of 03/20/2018. SUBJECTIVE: I met with the patient in the evening. The patient slept 4-1/4 hours, was quite delusional previous evening. Paranoid, suspicious the staff were to hurt her, "What are you going to do to me." This morning, she has been better. She slid herself out of the chair in the evening. REVIEW OF SYSTEMS: No CV, , pulmonary, eye system symptoms on review. Gait unsteady, in wheelchair. MENTAL STATUS EXAM: Oriented to herself and situation. Speech coherent, has some latency. Abstraction fair, computation impaired, language function intact, attention span short. Mood and affect showing some improvement and cognitively she seems clearer than the day before. LABORATORY DATA: Reviewed. IMPRESSION: Unchanged from initial note. Bipolar 1 disorder, mixed with psychotic features; history of major depressive disorder with psychotic features; cognitive disorder, unspecified. PLAN: Continue psychotropics including the Trileptal. MAN Farrah SAWANT MD DR: MARK/daphne JOB#: [id number] / [id number]
[2018-03-22 05:51] VITALS: BP 174/76
[2018-03-22] MEDS: INSULIN LISPRO 300 UNITS/3 ML INSULN.PEN. SQ SCH ×4 (08:00→21:27)
[2018-03-22] MEDS: BUDESONIDE 0.5 MG/2 ML NEBU NEB SCH ×2 (08:00→21:23)
[2018-03-22] MEDS: amLODIPine BESYLATE 10 MG TABLET PO SCH (08:38)
[2018-03-22] MEDS: levETIRAcetam 500 MG TABLET PO SCH ×2 (08:39→21:25)
[2018-03-22] MEDS: FAMOTIDINE 20 MG TABLET PO SCH (08:39)
[2018-03-22] MEDS: OXcarbazepine 150 MG TABLET. PO SCH ×2 (08:39→21:26)
[2018-03-22] MEDS: ASCORBIC ACID 500 MG TABLET PO SCH (08:39)
[2018-03-22] MEDS: FERROUS SULFATE 325 MG TABLET. PO SCH (08:39)
[2018-03-22] MEDS: GABAPENTIN 300 MG CAPSULE. PO SCH ×2 (08:39→21:25)
[2018-03-22] MEDS: PIOGLITAZONE 15 MG TABLET. PO SCH (08:39)
[2018-03-22] MEDS: DULoxetine HCL 60 MG CAPSULE.DR PO SCH (08:39)
[2018-03-22] MEDS: oxyCODONE/APAP 10/325 1 TAB TABLET PO SCH ×2 (08:41→21:26)
[2018-03-22 16:46] VITALS: BP 161/84
--- NOTE | 2018-03-22 20:10 | PDOC ---
Exam Note: Neal Note: Please also refer to the separate dictated note~for this date of service dictated separately.~Patient seen individually. Discussed the patient with Nursing staff reviewed the chart.~Reviewed interim history and current functioning. Reviewed vital signs,~Labs/ Radiology~and current medications noted below. Continue current treatment with the changes noted in the dictated addendum note Assessment: Vital Signs: Vital Signs Date Time Temp Pulse Resp B/P (MAP) Pulse Ox O2 Delivery O2 Flow Rate FiO2 03/22/18 16:46 97.4 89 17 161/84 (109) 97 Room Air I&O Intake and Output 03/22/18 07:00 Intake Total 360 ml Balance 360 ml Intake Oral 360 ml Labs: Laboratory Tests Test 03/22/18 07:50 03/22/18 12:07 03/22/18 16:42 03/22/18 19:11 Glucose (Fingerstick) 190 mg/dL (70-99) H 260 mg/dL (70-99) H 208 mg/dL (70-99) H 301 mg/dL (70-99) H Current Medications: Meds: Current Medications Acetaminophen (Tylenol) 1,000 mg 1X ONCE PO Last administered on 02/22/18at 03: 05; Start 02/22/18 at 03:30; Stop 02/22/18 at 03:31; Status DC Alprazolam (Xanax) 0.5 mg QHS PO Last administered on 03/11/18at 19:50; Start at 21:00; Stop 03/12/18 at 18:14; Status DC Duloxetine HCl (Cymbalta) 60 mg DAILY PO Last administered on 03/22/18at 08:39; Start 02/22/18 at 09:00 Melatonin 6 mg QHS PO Last administered on 03/21/18at 19:57; Start 02/22/18 at 21:00 Risperidone (RisperDAL) 0.25 mg BID PO Last administered on 02/23/18at 08:51; Start 02/22/18 at 09:00; Stop 02/23/18 at 13:23; Status DC Acetaminophen (Tylenol) 650 mg PRN Q6HRS PRN PO PAIN / TEMP Last administered on 03/11/18at 17:24; Start 02/22/18 at 05:00 Albuterol Sulfate (Ventolin) 2.5 mg PRN Q4HRS PRN NEB Dyspnea; Start 02/22/18 at 05:00 Diclofenac Sodium (Voltaren) 4 sam PRN QID PRN TP R Knee Pain; Start 02/22/18 at 05:00 Dicyclomine HCl (Bentyl) 10 mg PRN Q8HRS PRN PO Bowel Cramps; Start 02/22/18 at 05:00 Ferrous Sulfate (Feosol) 325 mg DAILY PO Last administered on 03/22/18at 08:39; Start 02/22/18 at 09:00 Gabapentin (Neurontin) 300 mg BID PO Last administered on 03/22/18 08:39; Start 02/22/18 at 09:00 Hydrocortisone (Proctosol-Hc) 1 sam PRN Q24HRS PRN RC Hemorrhoids; Start at 05:00 Insulin Aspart (NovoLOG) BS 200-2,50= 2 un... TIDWMEALHC SQ ; Start 02/22/18 at 08:00; Stop 02/22/18 at 08:01; Status DC Al Hydroxide/Mg Hydroxide (Mylanta Plus Xs) 15 ml PRN AFTMEALHC PRN PO DYSPEPSIA Last administered on 03/20/18 04:14; Start 02/22/18 at 05:00 Magnesium Hydroxide (Milk Of Magnesia) 2,400 mg PRN QHS PRN PO CONSTIPATION Last administered on 03/20/18 08:23; Start 02/22/18 at 05:00 Nitroglycerin (Nitrostat) 0.4 mg PRN Q5MIN PRN SL CHEST PAIN; Start 02/22/18 at 05:00 Nystatin (Nystop) 1 sam PRN TID PRN TP REDNESS; Start 02/22/18 at 05:00 Oxycodone/ Acetaminophen (Percocet 10/325) 1 tab BID PO Last administered on 09/27at 08:41; Start 02/22/18 at 09:00 Oxycodone/ Acetaminophen (Percocet 10/325) 1 tab PRN Q4HRS PRN PO PAIN Last administered on 03/17/18at 17:39; Start 02/22/18 at 05:00 Amlodipine Besylate (Norvasc) 10 mg DAILY PO Last administered on 03/22/18 08: 38; Start 02/22/18 at 09:00 Ascorbic Acid (Vitamin C) 500 mg DAILY PO Last administered on 03/22/18 08:39 ; Start 02/22/18 at 09:00 Budesonide (Pulmicort) 0.5 mg RTBID NEB Last administered on 03/21/18 20:27; Start 02/22/18 at 08:00 Celecoxib (CeleBREX) 100 mg BID PO Last administered on 03/04/18 07:58; Start 02/22/18 at 09:00; Stop 03/04/18 at 17:39; Status DC Artificial Tears (Artificial Tears) 1 drop TID PRN PRN OU DRY EYE; Start at 05:30 Famotidine (Pepcid) 20 mg DAILY PO Last administered on 03/22/18 08:39; Start 02/22/18 at 09:00 Guaifenesin (Robitussin Dm) 10 ml PRN Q4HRS PRN PO COUGH; Start 02/22/18 at 05: 30 Hydrocortisone Acetate (Anucort-Hc) 25 mg PRN Q12HR PRN NE RECTAL PAIN; Start 02/22/18 at 05:30 Levetiracetam (Keppra) 500 mg BID PO Last administered on 03/22/18 08:39; Start 02/22/18 at 09:00 Loperamide HCl (Imodium) 2 mg PRN Q4HRS PRN PO DIARRHEA; Start 02/22/18 at 05: 30 Ondansetron HCl (Zofran Odt) 4 mg PRN Q4HRS PRN PO NAUSEA/VOMITING; Start 02/22 at 05:30 Pioglitazone HCl (Actos) 15 mg DAILY PO Last administered on 03/22/18 08:39; Start 02/22/18 at 09:00 Multi-Ingredient Ointment (Analgesic [place]) 1 sam PRN QID PRN TP MUSCLE PAIN; Start 02/22/18 at 05:00 Insulin Human Lispro (HumaLOG) TIDWMEALHC SQ Last administered on 03/22/18 18 :29; Start 02/22/18 at 08:00 Mirtazapine (Remeron) 7.5 mg QHS PO Last administered on 6/11/18at 19:57; Start 02/22/18 at 21:00 Risperidone (RisperDAL) 0.375 mg BID PO Last administered on 02/26/18at 11:50; Start 02/23/18 at 21:00; Stop 02/26/18 at 19:49; Status DC Olanzapine (ZyPREXA ZYDIS) 5 mg PRN Q2HR PRN PO PSYCHOSIS Last administered on 03/18/18at 07:53; Start 02/23/18 at 19:45 Divalproex Sodium (Depakote Sprinkles) 125 mg TID@0900,1300,1700 PO Last administered on 03/01/18at 17:39; Start 02/26/18 at 09:00; Stop 03/01/18 at 18:29 ; Status DC Risperidone (RisperDAL) 0.5 mg BID PO Last administered on 03/01/18at 10:17; Start 02/26/18 at 21:00; Stop 03/01/18 at 18:29; Status DC Divalproex Sodium (Depakote Sprinkles) 250 mg TID@0900,1300,1700 PO Last administered on 03/04/18at 17:59; Start 03/02/18 at 09:00; Stop 03/04/18 at 19:22 ; Status DC Risperidone (RisperDAL) 0.75 mg BID PO Last administered on 03/13/18 07:42; Start 03/01/18 at 21:00; Stop 03/13/18 at 15:04; Status DC Divalproex Sodium (Depakote Er) 1,000 mg QHS PO Last administered on 03/06/18 19:17; Start 03/04/18 at 21:00; Stop 03/07/18 at 19:54; Status DC Divalproex Sodium (Depakote Er) 1,000 mg QHS PO Last administered on 03/14/18 21:12; Start 03/07/18 at 21:00; Stop 03/15/18 at 18:49; Status DC Divalproex Sodium (Depakote Er) 250 mg QHS PO Last administered on 03/14/18 21: 12; Start 03/07/18 at 21:00; Stop 03/15/18 at 18:49; Status DC Alprazolam (Xanax) 0.25 mg QHS PO Last administered on 03/21/18at 19:59; Start 03/13/18 at 21:00; Stop 03/27/18 at 23:00 Risperidone (RisperDAL) 0.75 mg HS PO Last administered on 03/14/18at 21:12; Start 03/13/18 at 21:00; Stop 03/15/18 at 18:49; Status DC Oxcarbazepine (Trileptal) 150 mg BID PO Last administered on 03/22/18at 08:39; Start 03/18/18 at 21:00 Active Scripts Active Reported Novolog Flexpen (Insulin Aspart) 100 Unit/1 Ml Insuln.pen 2-10 Units SQ TIDWMEALHC Risperdal (Risperidone) 0.25 Mg Tablet 0.25 Mg BID Cymbalta (Duloxetine Hcl) 60 Mg Capsule.dr 60 Mg PO DAILY Famotidine 20 Mg Tablet 20 Mg PO BID Mag-Al Plus Xs Suspension (Mag Hydrox/Al Hydrox/Simeth) 30 Ml Oral.susp 15 Ml PO PRN AFTMEALHC PRN Celebrex (Celecoxib) 100 Mg Capsule 100 Mg PO BID Vitamin C (Ascorbate Calcium) 500 Mg Tablet 500 Mg PO DAILY Robitussin Cough-Chest Dm Liq (Guaifenesin/Dextromethorphan) 237 Ml Liquid 10 Ml PO PRN Q4HRS PRN Percocet 10-325 Mg Tablet (Oxycodone Hcl/Acetaminophen) 1 Each Tablet 1 Tab PO PRN Q4HRS PRN Percocet 10-325 Mg Tablet (Oxycodone Hcl/Acetaminophen) 1 Each Tablet 1 Tab PO BID Ondansetron Hcl 4 Mg Tablet 4 Mg PO PRN Q4HRS PRN Nystatin 15 Gm Powder 1 Sam TP PRN TID PRN Nitrostat (Nitroglycerin) 0.4 Mg Tab.subl 0.4 Mg SL PRN Q5MIN PRN MDD 3tabs Melatonin 5 Mg Tablet (Melatonin/Pyridoxine) 1 Each Tablet 6 Mg PO QHS Loperamide (Loperamide Hcl) 2 Mg Tablet 2 Mg PO PRN Q4HRS PRN MDD 16mg Keppra (Levetiracetam) 500 Mg Tablet 500 Mg PO BID Ferrous Sulfate 325 Mg Tablet 325 Mg PO DAILY Neurontin (Gabapentin) 300 Mg Capsule 300 Mg PO TID Voltaren (Diclofenac Sodium) 100 Gm Gel..gram. 4 Gm TP PRN QID PRN Budesonide 0.5 Mg/2 Ml Ampul.neb 0.5 Mg NEB PRN BID PRN Dicyclomine Hcl 10 Mg Capsule 10 Mg PO PRN Q8HRS PRN Artificial Tears Eye Drops (Dextran 70/Hypromellose) 15 Ml Drops 1 Drop OU TID PRN Anusol-Hc (Hydrocortisone Acetate) 25 Mg Supp.rect 25 Mg RC PRN Q12HR PRN Anusol-Hc (Hydrocortisone) 30 Gm Cream..g. 1 Sam RC PRN Q24HRS PRN Norvasc (Amlodipine Besylate) 10 Mg Tablet 10 Mg PO DAILY Alprazolam 0.5 Mg Tablet 0.5 Mg PO HS Tylenol (Acetaminophen) 325 Mg Tablet 650 Mg PO PRN Q6HRS PRN Albuterol Sulfate Neb Soln (Albuterol Sulfate) 2.5 Mg/3 Ml Vial.neb 2.5 Mg NEB PRN Q4HRS PRN Milk Of Magnesia (Magnesium Hydroxide) 400 Mg/5 Ml Oral.susp 2,400 Mg PO PRN QHS PRN Actos (Pioglitazone Hcl) 15 Mg Tablet 15 Mg PO DAILYWBKFT I have reviewed the current psychotropics carefully including drug interactions. Risk benefit ratio favors no change other than as noted in my dictated progress note. Diagnosis: Problems: (1) Anxiety disorder (2) Impulse control disorder (3) Major depressive disorder, recurrent episode (4) Mild cognitive impairment BEA SAWANT MD Mar 22, 2018 20:10
[2018-03-22] MEDS: MIRTAZAPINE 7.5 MG TABLET. PO SCH (21:25)
[2018-03-22] MEDS: MELATONIN 3 MG TABLET PO SCH (21:25)
[2018-03-22] MEDS: ALPRAZolam 0.25 MG TABLET PO SCH (21:25)
--- NOTE | 2018-03-22 23:51 | PN ---
DATE: 03/21/2018 This late entry 03/21/2018 covers elements not covered in my initial note. SUBJECTIVE: I met with the patient at length the evening of 03/21/2018. The patient slept 7-1/4 hours, oriented x 2. Sleep till late in the morning. REVIEW OF SYSTEMS: Ambulation impaired, in wheelchair. No CV, , pulmonary, eye, ENT system symptoms on review. MENTAL STATUS EXAM: Oriented to herself, situation. Does not believe she is in a [facility]astafari, knows she is in a hospital, which is quite a change for her. Speech coherent, less pressured. Abstraction fair, computation impaired, language function intact, attention span short. Mood and affect still somewhat withdrawn, labile at times, but much improved. LABORATORY DATA: Reviewed. IMPRESSION: Major depressive disorder with psychotic features in partial remission; probable bipolar 1 disorder, mixed with psychotic features, in partial remission. PLAN: Continue current psychotropics including Trileptal, Cymbalta. Xanax is being tapered and discontinued. Maintain Zyprexa p.r.n. and Remeron 7.5 mg at bedtime, melatonin 6 mg at bedtime. MAN Farrah SAWANT MD DR: MARK/daphne JOB#: [id number] / [id number]
[2018-03-23 06:14] VITALS: BP 120/82
[2018-03-23] MEDS: INSULIN LISPRO 300 UNITS/3 ML INSULN.PEN. SQ SCH ×4 (08:00→19:20)
[2018-03-23] MEDS: amLODIPine BESYLATE 10 MG TABLET PO SCH (09:39)
[2018-03-23] MEDS: levETIRAcetam 500 MG TABLET PO SCH ×2 (09:39→19:18)
[2018-03-23] MEDS: FAMOTIDINE 20 MG TABLET PO SCH (09:39)
[2018-03-23] MEDS: PIOGLITAZONE 15 MG TABLET. PO SCH (09:39)
[2018-03-23] MEDS: FERROUS SULFATE 325 MG TABLET. PO SCH (09:40)
[2018-03-23] MEDS: OXcarbazepine 150 MG TABLET. PO SCH ×2 (09:40→19:18)
[2018-03-23] MEDS: ASCORBIC ACID 500 MG TABLET PO SCH (09:40)
[2018-03-23] MEDS: GABAPENTIN 300 MG CAPSULE. PO SCH ×2 (09:40→19:18)
[2018-03-23] MEDS: DULoxetine HCL 60 MG CAPSULE.DR PO SCH (09:40)
[2018-03-23] MEDS: oxyCODONE/APAP 10/325 1 TAB TABLET PO SCH ×2 (09:41→19:21)
[2018-03-23] MEDS: BUDESONIDE 0.5 MG/2 ML NEBU NEB SCH ×2 (11:28→22:01)
[2018-03-23 16:27] VITALS: BP 144/68
[2018-03-23] MEDS: MELATONIN 3 MG TABLET PO SCH (19:18)
[2018-03-23] MEDS: MIRTAZAPINE 7.5 MG TABLET. PO SCH (19:18)
[2018-03-23] MEDS: ALPRAZolam 0.25 MG TABLET PO SCH (19:20)
--- NOTE | 2018-03-23 20:56 | PDOC ---
Exam Note: Neal Note: Please also refer to the separate dictated note~for this date of service dictated separately.~Patient seen individually. Discussed the patient with Nursing staff reviewed the chart.~Reviewed interim history and current functioning. Reviewed vital signs,~Labs/ Radiology~and current medications noted below. Continue current treatment with the changes noted in the dictated addendum note Assessment: Vital Signs: Vital Signs Date Time Temp Pulse Resp B/P (MAP) Pulse Ox O2 Delivery O2 Flow Rate FiO2 03/23/18 16:27 98.0 88 18 144/68 (93) 93 03/23/18 11:28 Room Air I&O Intake and Output 03/23/18 07:00 Intake Total 600 ml Balance 600 ml Intake Oral 600 ml Labs: Laboratory Tests Test 03/23/18 07:05 03/23/18 11:56 03/23/18 16:45 03/23/18 19:06 Glucose (Fingerstick) 82 mg/dL (70-99) 222 mg/dL (70-99) H 381 mg/dL (70-99) H 344 mg/dL (70-99) H Current Medications: Meds: Current Medications Acetaminophen (Tylenol) 1,000 mg 1X ONCE PO Last administered on 02/22/18at 03: 05; Start 02/22/18 at 03:30; Stop 02/22/18 at 03:31; Status DC Alprazolam (Xanax) 0.5 mg QHS PO Last administered on 03/11/18at 19:50; Start at 21:00; Stop 03/12/18 at 18:14; Status DC Duloxetine HCl (Cymbalta) 60 mg DAILY PO Last administered on 03/23/18at 09:40; Start 02/22/18 at 09:00 Melatonin 6 mg QHS PO Last administered on 03/23/18at 19:18; Start 02/22/18 at 21:00 Risperidone (RisperDAL) 0.25 mg BID PO Last administered on 02/23/18at 08:51; Start 02/22/18 at 09:00; Stop 02/23/18 at 13:23; Status DC Acetaminophen (Tylenol) 650 mg PRN Q6HRS PRN PO PAIN / TEMP Last administered on 03/11/18at 17:24; Start 02/22/18 at 05:00 Albuterol Sulfate (Ventolin) 2.5 mg PRN Q4HRS PRN NEB Dyspnea; Start 02/22/18 at 05:00 Diclofenac Sodium (Voltaren) 4 sam PRN QID PRN TP R Knee Pain; Start 02/22/18 at 05:00 Dicyclomine HCl (Bentyl) 10 mg PRN Q8HRS PRN PO Bowel Cramps; Start 02/22/18 at 05:00 Ferrous Sulfate (Feosol) 325 mg DAILY PO Last administered on 03/23/18at 09:40; Start 02/22/18 at 09:00 Gabapentin (Neurontin) 300 mg BID PO Last administered on 03/23/18 19:18; Start 02/22/18 at 09:00 Hydrocortisone (Proctosol-Hc) 1 sam PRN Q24HRS PRN RC Hemorrhoids; Start at 05:00 Insulin Aspart (NovoLOG) BS 200-2,50= 2 un... TIDWMEALHC SQ ; Start 02/22/18 at 08:00; Stop 02/22/18 at 08:01; Status DC Al Hydroxide/Mg Hydroxide (Mylanta Plus Xs) 15 ml PRN AFTMEALHC PRN PO DYSPEPSIA Last administered on 03/20/18at 04:14; Start 02/22/18 at 05:00 Magnesium Hydroxide (Milk Of Magnesia) 2,400 mg PRN QHS PRN PO CONSTIPATION Last administered on 03/20/18at 08:23; Start 02/22/18 at 05:00 Nitroglycerin (Nitrostat) 0.4 mg PRN Q5MIN PRN SL CHEST PAIN; Start 02/22/18 at 05:00 Nystatin (Nystop) 1 sam PRN TID PRN TP REDNESS; Start 02/22/18 at 05:00 Oxycodone/ Acetaminophen (Percocet 10/325) 1 tab BID PO Last administered on at 19:21; Start 02/22/18 at 09:00 Oxycodone/ Acetaminophen (Percocet 10/325) 1 tab PRN Q4HRS PRN PO PAIN Last administered on 03/17/18at 17:39; Start 02/22/18 at 05:00 Amlodipine Besylate (Norvasc) 10 mg DAILY PO Last administered on 03/23/18 09: 39; Start 02/22/18 at 09:00 Ascorbic Acid (Vitamin C) 500 mg DAILY PO Last administered on 03/23/18 09:40 ; Start 02/22/18 at 09:00 Budesonide (Pulmicort) 0.5 mg RTBID NEB Last administered on 03/23/18 11:28; Start 02/22/18 at 08:00 Celecoxib (CeleBREX) 100 mg BID PO Last administered on 03/04/18 07:58; Start 02/22/18 at 09:00; Stop 03/04/18 at 17:39; Status DC Artificial Tears (Artificial Tears) 1 drop TID PRN PRN OU DRY EYE; Start at 05:30 Famotidine (Pepcid) 20 mg DAILY PO Last administered on 03/23/18 09:39; Start 02/22/18 at 09:00 Guaifenesin (Robitussin Dm) 10 ml PRN Q4HRS PRN PO COUGH; Start 02/22/18 at 05: 30 Hydrocortisone Acetate (Anucort-Hc) 25 mg PRN Q12HR PRN RI RECTAL PAIN; Start 02/22/18 at 05:30 Levetiracetam (Keppra) 500 mg BID PO Last administered on 03/23/18 19:18; Start 02/22/18 at 09:00 Loperamide HCl (Imodium) 2 mg PRN Q4HRS PRN PO DIARRHEA; Start 02/22/18 at 05: 30 Ondansetron HCl (Zofran Odt) 4 mg PRN Q4HRS PRN PO NAUSEA/VOMITING; Start 02/22 at 05:30 Pioglitazone HCl (Actos) 15 mg DAILY PO Last administered on 03/23/18 09:39; Start 02/22/18 at 09:00 Multi-Ingredient Ointment (Analgesic [place]) 1 sam PRN QID PRN TP MUSCLE PAIN; Start 02/22/18 at 05:00 Insulin Human Lispro (HumaLOG) TIDWMEALHC SQ Last administered on 03/23/18 19 :20; Start 02/22/18 at 08:00 Mirtazapine (Remeron) 7.5 mg QHS PO Last administered on 03/23/18 19:18; Start 02/22/18 at 21:00 Risperidone (RisperDAL) 0.375 mg BID PO Last administered on 02/26/18at 11:50; Start 02/23/18 at 21:00; Stop 02/26/18 at 19:49; Status DC Olanzapine (ZyPREXA ZYDIS) 5 mg PRN Q2HR PRN PO PSYCHOSIS Last administered on 03/18/18at 07:53; Start 02/23/18 at 19:45 Divalproex Sodium (Depakote Sprinkles) 125 mg TID@0900,1300,1700 PO Last administered on 03/01/18at 17:39; Start 02/26/18 at 09:00; Stop 03/01/18 at 18:29 ; Status DC Risperidone (RisperDAL) 0.5 mg BID PO Last administered on 03/01/18at 10:17; Start 02/26/18 at 21:00; Stop 03/01/18 at 18:29; Status DC Divalproex Sodium (Depakote Sprinkles) 250 mg TID@0900,1300,1700 PO Last administered on 03/04/18at 17:59; Start 03/02/18 at 09:00; Stop 03/04/18 at 19:22 ; Status DC Risperidone (RisperDAL) 0.75 mg BID PO Last administered on 03/13/18 07:42; Start 03/01/18 at 21:00; Stop 03/13/18 at 15:04; Status DC Divalproex Sodium (Depakote Er) 1,000 mg QHS PO Last administered on 03/06/18at 19:17; Start 03/04/18 at 21:00; Stop 03/07/18 at 19:54; Status DC Divalproex Sodium (Depakote Er) 1,000 mg QHS PO Last administered on 03/14/18 21:12; Start 03/07/18 at 21:00; Stop 03/15/18 at 18:49; Status DC Divalproex Sodium (Depakote Er) 250 mg QHS PO Last administered on 03/14/18 21: 12; Start 03/07/18 at 21:00; Stop 03/15/18 at 18:49; Status DC Alprazolam (Xanax) 0.25 mg QHS PO Last administered on 03/23/18at 19:20; Start 03/13/18 at 21:00; Stop 03/27/18 at 23:00 Risperidone (RisperDAL) 0.75 mg HS PO Last administered on 03/14/18at 21:12; Start 03/13/18 at 21:00; Stop 03/15/18 at 18:49; Status DC Oxcarbazepine (Trileptal) 150 mg BID PO Last administered on 03/23/18at 19:18; Start 03/18/18 at 21:00 Active Scripts Active Reported Novolog Flexpen (Insulin Aspart) 100 Unit/1 Ml Insuln.pen 2-10 Units SQ TIDWMEALHC Risperdal (Risperidone) 0.25 Mg Tablet 0.25 Mg BID Cymbalta (Duloxetine Hcl) 60 Mg Capsule.dr 60 Mg PO DAILY Famotidine 20 Mg Tablet 20 Mg PO BID Mag-Al Plus Xs Suspension (Mag Hydrox/Al Hydrox/Simeth) 30 Ml Oral.susp 15 Ml PO PRN AFTMEALHC PRN Celebrex (Celecoxib) 100 Mg Capsule 100 Mg PO BID Vitamin C (Ascorbate Calcium) 500 Mg Tablet 500 Mg PO DAILY Robitussin Cough-Chest Dm Liq (Guaifenesin/Dextromethorphan) 237 Ml Liquid 10 Ml PO PRN Q4HRS PRN Percocet 10-325 Mg Tablet (Oxycodone Hcl/Acetaminophen) 1 Each Tablet 1 Tab PO PRN Q4HRS PRN Percocet 10-325 Mg Tablet (Oxycodone Hcl/Acetaminophen) 1 Each Tablet 1 Tab PO BID Ondansetron Hcl 4 Mg Tablet 4 Mg PO PRN Q4HRS PRN Nystatin 15 Gm Powder 1 Sam TP PRN TID PRN Nitrostat (Nitroglycerin) 0.4 Mg Tab.subl 0.4 Mg SL PRN Q5MIN PRN MDD 3tabs Melatonin 5 Mg Tablet (Melatonin/Pyridoxine) 1 Each Tablet 6 Mg PO QHS Loperamide (Loperamide Hcl) 2 Mg Tablet 2 Mg PO PRN Q4HRS PRN MDD 16mg Keppra (Levetiracetam) 500 Mg Tablet 500 Mg PO BID Ferrous Sulfate 325 Mg Tablet 325 Mg PO DAILY Neurontin (Gabapentin) 300 Mg Capsule 300 Mg PO TID Voltaren (Diclofenac Sodium) 100 Gm Gel..gram. 4 Gm TP PRN QID PRN Budesonide 0.5 Mg/2 Ml Ampul.neb 0.5 Mg NEB PRN BID PRN Dicyclomine Hcl 10 Mg Capsule 10 Mg PO PRN Q8HRS PRN Artificial Tears Eye Drops (Dextran 70/Hypromellose) 15 Ml Drops 1 Drop OU TID PRN Anusol-Hc (Hydrocortisone Acetate) 25 Mg Supp.rect 25 Mg RC PRN Q12HR PRN Anusol-Hc (Hydrocortisone) 30 Gm Cream..g. 1 Sam RC PRN Q24HRS PRN Norvasc (Amlodipine Besylate) 10 Mg Tablet 10 Mg PO DAILY Alprazolam 0.5 Mg Tablet 0.5 Mg PO HS Tylenol (Acetaminophen) 325 Mg Tablet 650 Mg PO PRN Q6HRS PRN Albuterol Sulfate Neb Soln (Albuterol Sulfate) 2.5 Mg/3 Ml Vial.neb 2.5 Mg NEB PRN Q4HRS PRN Milk Of Magnesia (Magnesium Hydroxide) 400 Mg/5 Ml Oral.susp 2,400 Mg PO PRN QHS PRN Actos (Pioglitazone Hcl) 15 Mg Tablet 15 Mg PO DAILYWBKFT I have reviewed the current psychotropics carefully including drug interactions. Risk benefit ratio favors no change other than as noted in my dictated progress note. Diagnosis: Problems: (1) Anxiety disorder (2) Impulse control disorder (3) Major depressive disorder, recurrent episode (4) Mild cognitive impairment BEA SAWANT MD Mar 23, 2018 20:56
--- NOTE | 2018-03-24 04:58 | PN ---
DATE: 03/22/2018 PSYCHIATRIC PROGRESS NOTE This is a late entry 03/22/2018 covers elements not covered in my initial note 03/22/2018. SUBJECTIVE: I met with the patient in the evening. Overall, the patient is doing better, less labile, less psychotic, and less confused per nursing report. REVIEW OF SYSTEMS: Ambulation impaired, in wheelchair. No CV, , pulmonary, eye, ENT system symptoms on review. MENTAL STATUS EXAM: Oriented to herself and situation. Speech coherent, has some latency. Abstraction fair, computation impaired, language function intact, attention span short. Mood and affect less labile. LABORATORY DATA: Reviewed. IMPRESSION: Bipolar 1 disorder, mixed with psychotic features; major depressive disorder with psychotic features; cognitive disorder, unspecified. PLAN: Continue psychotropics from my initial note. MAN Farrah SAWANT MD DR: MARK/daphne JOB#: [id number] / [id number]
[2018-03-24 05:53] VITALS: BP 149/70
[2018-03-24] MEDS: BUDESONIDE 0.5 MG/2 ML NEBU NEB SCH ×2 (08:00→20:35)
[2018-03-24] MEDS: FERROUS SULFATE 325 MG TABLET. PO SCH (10:53)
[2018-03-24] MEDS: PIOGLITAZONE 15 MG TABLET. PO SCH (10:53)
[2018-03-24] MEDS: ASCORBIC ACID 500 MG TABLET PO SCH (10:54)
[2018-03-24] MEDS: GABAPENTIN 300 MG CAPSULE. PO SCH ×2 (10:54→19:59)
[2018-03-24] MEDS: amLODIPine BESYLATE 10 MG TABLET PO SCH (10:54)
[2018-03-24] MEDS: OXcarbazepine 150 MG TABLET. PO SCH ×2 (10:54→19:59)
[2018-03-24] MEDS: FAMOTIDINE 20 MG TABLET PO SCH (10:54)
[2018-03-24] MEDS: DULoxetine HCL 60 MG CAPSULE.DR PO SCH (10:54)
[2018-03-24] MEDS: levETIRAcetam 500 MG TABLET PO SCH ×2 (10:54→19:59)
[2018-03-24] MEDS: INSULIN LISPRO 300 UNITS/3 ML INSULN.PEN. SQ SCH ×4 (10:55→20:04)
[2018-03-24] MEDS: oxyCODONE/APAP 10/325 1 TAB TABLET PO SCH ×2 (10:56→20:00)
--- NOTE | 2018-03-24 14:00 | RAD ---
CT HEAD WITHOUT CONTRAST 03/24/2018 1:17 PM Indication: CHANGE IN MENTAL STATUS Comparison: None available Procedure: Multidetector CT imaging of the head was performed without the administration of contrast. Findings: There is no evidence of acute intracranial hemorrhage. There is no evidence of acute territorial infarction. Please note that CT is limited for evaluation of acute ischemia. If there is clinical concern for acute ischemia MRI offers more sensitive evaluation. There is mild patchy periventricular deep white matter hypoattenuation is seen, which while nonspecific most commonly reflects chronic small vessel disease. Probable small chronic lacunar infarct involving the left basal ganglia is noted. No acute mass effect or midline shift is identified . The ventricles and basilar cisterns have an appropriate appearance. No abnormal extra-axial fluid collections are seen. No acute osseous changes are identified. Impression: 1. No evidence of acute intracranial abnormality 2. Mild patchy periventricular and deep white matter hypoattenuation which while nonspecific most commonly reflects chronic small vessel disease. CT DOSING PQRS STATEMENT: One or more of the following individualized dose reduction techniques were utilized for this examination: 1. Automated exposure control 2. Adjustment of the mA and/or kV according to patient size 3. Use of iterative reconstruction technique Electronically signed by: Harry Melendrez MD (03/24/2018 1:56 PM) [id number]
[2018-03-24 16:48] VITALS: BP 147/76
[2018-03-24] MEDS: MELATONIN 3 MG TABLET PO SCH (19:59)
[2018-03-24] MEDS: MIRTAZAPINE 7.5 MG TABLET. PO SCH (19:59)
[2018-03-24] MEDS: ALPRAZolam 0.25 MG TABLET PO SCH (19:59)
--- NOTE | 2018-03-24 22:28 | PDOC ---
Exam Note: Neal Note: Please also refer to the separate dictated note~for this date of service dictated separately.~Patient seen individually. Discussed the patient with Nursing staff reviewed the chart.~Reviewed interim history and current functioning. Reviewed vital signs,~Labs/ Radiology~and current medications noted below. Continue current treatment with the changes noted in the dictated addendum note Assessment: Vital Signs: Vital Signs Date Time Temp Pulse Resp B/P (MAP) Pulse Ox O2 Delivery O2 Flow Rate FiO2 03/24/18 20:37 Room Air 03/24/18 16:48 97.5 96 17 147/76 (99) 96 I&O Intake and Output 03/24/18 07:00 Intake Total 1560 ml Balance 1560 ml Intake Oral 1560 ml Labs: Laboratory Tests Test 03/24/18 07:46 03/24/18 11:29 03/24/18 16:50 03/24/18 19:10 Glucose (Fingerstick) 153 mg/dL (70-99) H 298 mg/dL (70-99) H 238 mg/dL (70-99) H 277 mg/dL (70-99) H Current Medications: Meds: Current Medications Acetaminophen (Tylenol) 1,000 mg 1X ONCE PO Last administered on 02/22/18at 03: 05; Start 02/22/18 at 03:30; Stop 02/22/18 at 03:31; Status DC Alprazolam (Xanax) 0.5 mg QHS PO Last administered on 03/11/18at 19:50; Start at 21:00; Stop 03/12/18 at 18:14; Status DC Duloxetine HCl (Cymbalta) 60 mg DAILY PO Last administered on 03/24/18at 10:54; Start 02/22/18 at 09:00 Melatonin 6 mg QHS PO Last administered on 03/24/18at 19:59; Start 02/22/18 at 21:00 Risperidone (RisperDAL) 0.25 mg BID PO Last administered on 02/23/18at 08:51; Start 02/22/18 at 09:00; Stop 02/23/18 at 13:23; Status DC Acetaminophen (Tylenol) 650 mg PRN Q6HRS PRN PO PAIN / TEMP Last administered on 03/11/18at 17:24; Start 02/22/18 at 05:00 Albuterol Sulfate (Ventolin) 2.5 mg PRN Q4HRS PRN NEB Dyspnea; Start 02/22/18 at 05:00 Diclofenac Sodium (Voltaren) 4 sam PRN QID PRN TP R Knee Pain; Start 02/22/18 at 05:00 Dicyclomine HCl (Bentyl) 10 mg PRN Q8HRS PRN PO Bowel Cramps; Start 02/22/18 at 05:00 Ferrous Sulfate (Feosol) 325 mg DAILY PO Last administered on 03/24/18at 10:53; Start 02/22/18 at 09:00 Gabapentin (Neurontin) 300 mg BID PO Last administered on 03/24/18at 19:59; Start 02/22/18 at 09:00 Hydrocortisone (Proctosol-Hc) 1 sam PRN Q24HRS PRN RC Hemorrhoids; Start at 05:00 Insulin Aspart (NovoLOG) BS 200-2,50= 2 un... TIDWMEALHC SQ ; Start 02/22/18 at 08:00; Stop 02/22/18 at 08:01; Status DC Al Hydroxide/Mg Hydroxide (Mylanta Plus Xs) 15 ml PRN AFTMEALHC PRN PO DYSPEPSIA Last administered on 03/20/18at 04:14; Start 02/22/18 at 05:00 Magnesium Hydroxide (Milk Of Magnesia) 2,400 mg PRN QHS PRN PO CONSTIPATION Last administered on 03/20/18at 08:23; Start 02/22/18 at 05:00 Nitroglycerin (Nitrostat) 0.4 mg PRN Q5MIN PRN SL CHEST PAIN; Start 02/22/18 at 05:00 Nystatin (Nystop) 1 sam PRN TID PRN TP REDNESS; Start 02/22/18 at 05:00 Oxycodone/ Acetaminophen (Percocet 10/325) 1 tab BID PO Last administered on at 20:00; Start 02/22/18 at 09:00 Oxycodone/ Acetaminophen (Percocet 10/325) 1 tab PRN Q4HRS PRN PO PAIN Last administered on 03/17/18at 17:39; Start 02/22/18 at 05:00 Amlodipine Besylate (Norvasc) 10 mg DAILY PO Last administered on 03/24/18 10: 54; Start 02/22/18 at 09:00 Ascorbic Acid (Vitamin C) 500 mg DAILY PO Last administered on 03/24/18 10:54 ; Start 02/22/18 at 09:00 Budesonide (Pulmicort) 0.5 mg RTBID NEB Last administered on 03/24/18at 20:35; Start 02/22/18 at 08:00 Celecoxib (CeleBREX) 100 mg BID PO Last administered on 03/04/18at 07:58; Start 02/22/18 at 09:00; Stop 03/04/18 at 17:39; Status DC Artificial Tears (Artificial Tears) 1 drop TID PRN PRN OU DRY EYE; Start at 05:30 Famotidine (Pepcid) 20 mg DAILY PO Last administered on 03/24/18at 10:54; Start 02/22/18 at 09:00 Guaifenesin (Robitussin Dm) 10 ml PRN Q4HRS PRN PO COUGH; Start 02/22/18 at 05: 30 Hydrocortisone Acetate (Anucort-Hc) 25 mg PRN Q12HR PRN [place] RECTAL PAIN; Start 02/22/18 at 05:30 Levetiracetam (Keppra) 500 mg BID PO Last administered on 03/24/18at 19:59; Start 02/22/18 at 09:00 Loperamide HCl (Imodium) 2 mg PRN Q4HRS PRN PO DIARRHEA; Start 02/22/18 at 05: 30 Ondansetron HCl (Zofran Odt) 4 mg PRN Q4HRS PRN PO NAUSEA/VOMITING; Start 02/22 at 05:30 Pioglitazone HCl (Actos) 15 mg DAILY PO Last administered on 03/24/18at 10:53; Start 02/22/18 at 09:00 Multi-Ingredient Ointment (Analgesic [place]) 1 sam PRN QID PRN TP MUSCLE PAIN; Start 02/22/18 at 05:00 Insulin Human Lispro (HumaLOG) TIDWMEALHC SQ Last administered on 03/24/18at 20 :04; Start 02/22/18 at 08:00 Mirtazapine (Remeron) 7.5 mg QHS PO Last administered on 03/24/18 19:59; Start 02/22/18 at 21:00 Risperidone (RisperDAL) 0.375 mg BID PO Last administered on 02/26/18at 11:50; Start 02/23/18 at 21:00; Stop 02/26/18 at 19:49; Status DC Olanzapine (ZyPREXA ZYDIS) 5 mg PRN Q2HR PRN PO PSYCHOSIS Last administered on 03/18/18at 07:53; Start 02/23/18 at 19:45 Divalproex Sodium (Depakote Sprinkles) 125 mg TID@0900,1300,1700 PO Last administered on 03/01/18at 17:39; Start 02/26/18 at 09:00; Stop 03/01/18 at 18:29 ; Status DC Risperidone (RisperDAL) 0.5 mg BID PO Last administered on 03/01/18at 10:17; Start 02/26/18 at 21:00; Stop 03/01/18 at 18:29; Status DC Divalproex Sodium (Depakote Sprinkles) 250 mg TID@0900,1300,1700 PO Last administered on 03/04/18 17:59; Start 03/02/18 at 09:00; Stop 03/04/18 at 19:22 ; Status DC Risperidone (RisperDAL) 0.75 mg BID PO Last administered on 03/13/18 07:42; Start 03/01/18 at 21:00; Stop 03/13/18 at 15:04; Status DC Divalproex Sodium (Depakote Er) 1,000 mg QHS PO Last administered on 03/06/18 19:17; Start 03/04/18 at 21:00; Stop 03/07/18 at 19:54; Status DC Divalproex Sodium (Depakote Er) 1,000 mg QHS PO Last administered on 03/14/18 21:12; Start 03/07/18 at 21:00; Stop 03/15/18 at 18:49; Status DC Divalproex Sodium (Depakote Er) 250 mg QHS PO Last administered on 03/14/18 21: 12; Start 03/07/18 at 21:00; Stop 03/15/18 at 18:49; Status DC Alprazolam (Xanax) 0.25 mg QHS PO Last administered on 03/24/18at 19:59; Start 03/13/18 at 21:00; Stop 03/27/18 at 23:00 Risperidone (RisperDAL) 0.75 mg HS PO Last administered on 03/14/18at 21:12; Start 03/13/18 at 21:00; Stop 03/15/18 at 18:49; Status DC Oxcarbazepine (Trileptal) 150 mg BID PO Last administered on 03/24/18at 19:59; Start 03/18/18 at 21:00 Active Scripts Active Reported Novolog Flexpen (Insulin Aspart) 100 Unit/1 Ml Insuln.pen 2-10 Units SQ TIDWMEALHC Risperdal (Risperidone) 0.25 Mg Tablet 0.25 Mg BID Cymbalta (Duloxetine Hcl) 60 Mg Capsule.dr 60 Mg PO DAILY Famotidine 20 Mg Tablet 20 Mg PO BID Mag-Al Plus Xs Suspension (Mag Hydrox/Al Hydrox/Simeth) 30 Ml Oral.susp 15 Ml PO PRN AFTMEALHC PRN Celebrex (Celecoxib) 100 Mg Capsule 100 Mg PO BID Vitamin C (Ascorbate Calcium) 500 Mg Tablet 500 Mg PO DAILY Robitussin Cough-Chest Dm Liq (Guaifenesin/Dextromethorphan) 237 Ml Liquid 10 Ml PO PRN Q4HRS PRN Percocet 10-325 Mg Tablet (Oxycodone Hcl/Acetaminophen) 1 Each Tablet 1 Tab PO PRN Q4HRS PRN Percocet 10-325 Mg Tablet (Oxycodone Hcl/Acetaminophen) 1 Each Tablet 1 Tab PO BID Ondansetron Hcl 4 Mg Tablet 4 Mg PO PRN Q4HRS PRN Nystatin 15 Gm Powder 1 Sam TP PRN TID PRN Nitrostat (Nitroglycerin) 0.4 Mg Tab.subl 0.4 Mg SL PRN Q5MIN PRN MDD 3tabs Melatonin 5 Mg Tablet (Melatonin/Pyridoxine) 1 Each Tablet 6 Mg PO QHS Loperamide (Loperamide Hcl) 2 Mg Tablet 2 Mg PO PRN Q4HRS PRN MDD 16mg Keppra (Levetiracetam) 500 Mg Tablet 500 Mg PO BID Ferrous Sulfate 325 Mg Tablet 325 Mg PO DAILY Neurontin (Gabapentin) 300 Mg Capsule 300 Mg PO TID Voltaren (Diclofenac Sodium) 100 Gm Gel..gram. 4 Gm TP PRN QID PRN Budesonide 0.5 Mg/2 Ml Ampul.neb 0.5 Mg NEB PRN BID PRN Dicyclomine Hcl 10 Mg Capsule 10 Mg PO PRN Q8HRS PRN Artificial Tears Eye Drops (Dextran 70/Hypromellose) 15 Ml Drops 1 Drop OU TID PRN Anusol-Hc (Hydrocortisone Acetate) 25 Mg Supp.rect 25 Mg RC PRN Q12HR PRN Anusol-Hc (Hydrocortisone) 30 Gm Cream..g. 1 Sam RC PRN Q24HRS PRN Norvasc (Amlodipine Besylate) 10 Mg Tablet 10 Mg PO DAILY Alprazolam 0.5 Mg Tablet 0.5 Mg PO HS Tylenol (Acetaminophen) 325 Mg Tablet 650 Mg PO PRN Q6HRS PRN Albuterol Sulfate Neb Soln (Albuterol Sulfate) 2.5 Mg/3 Ml Vial.neb 2.5 Mg NEB PRN Q4HRS PRN Milk Of Magnesia (Magnesium Hydroxide) 400 Mg/5 Ml Oral.susp 2,400 Mg PO PRN QHS PRN Actos (Pioglitazone Hcl) 15 Mg Tablet 15 Mg PO DAILYWBKFT I have reviewed the current psychotropics carefully including drug interactions. Risk benefit ratio favors no change other than as noted in my dictated progress note. Diagnosis: Problems: (1) Anxiety disorder (2) Impulse control disorder (3) Major depressive disorder, recurrent episode (4) Mild cognitive impairment BEA SAWANT MD Mar 24, 2018 22:27
[2018-03-25 06:46] VITALS: BP 144/88
[2018-03-25] MEDS: INSULIN LISPRO 300 UNITS/3 ML INSULN.PEN. SQ SCH ×4 (07:31→20:55)
[2018-03-25] MEDS: ASCORBIC ACID 500 MG TABLET PO SCH (08:06)
[2018-03-25] MEDS: PIOGLITAZONE 15 MG TABLET. PO SCH (08:06)
[2018-03-25] MEDS: OXcarbazepine 150 MG TABLET. PO SCH ×2 (08:06→20:52)
[2018-03-25] MEDS: DULoxetine HCL 60 MG CAPSULE.DR PO SCH (08:06)
[2018-03-25] MEDS: amLODIPine BESYLATE 10 MG TABLET PO SCH (08:06)
[2018-03-25] MEDS: GABAPENTIN 300 MG CAPSULE. PO SCH ×2 (08:06→20:52)
[2018-03-25] MEDS: oxyCODONE/APAP 10/325 1 TAB TABLET PO SCH ×2 (08:07→20:54)
[2018-03-25] MEDS: levETIRAcetam 500 MG TABLET PO SCH ×2 (08:07→20:52)
[2018-03-25] MEDS: FERROUS SULFATE 325 MG TABLET. PO SCH (08:07)
[2018-03-25] MEDS: FAMOTIDINE 20 MG TABLET PO SCH (08:07)
[2018-03-25 08:24] LABS: BASO % 1 % (0-3); EOS # 0.1 x10^3/uL (0.0-0.7); EOS % 2 % (0-3); HEMATOCRIT 30.8 % (36.0-47.0); LYMPH # 2.4 x10^3/uL (1.0-4.8); LYMPH % 31 % (24-48); MEAN CORPUSCULAR HEMOGLOBIN 27 pg (25-35); MEAN CORPUSCULAR HGB CONC 33 g/dL (31-37); MEAN CORPUSCULAR VOLUME 84 fL (79-100); MONO # 0.6 x10^3/uL (0.0-1.1); MONO % 8 % (0-9); NEUT # 4.4 x10^3uL (1.8-7.7); NEUT % 59 % (31-73); PLATELET COUNT 338 x10^3/uL (140-400); RED BLOOD COUNT 3.67 x10^6/uL (3.50-5.40); RED CELL DISTRIBUTION WIDTH 16.5 % (11.5-14.5); WHITE BLOOD COUNT 7.6 x10^3/uL (4.0-11.0)
[2018-03-25 08:34] LABS: ALBUMIN 3.3 g/dL (3.4-5.0); ALBUMIN/GLOBULIN RATIO 0.7 (1.0-1.7); CALCIUM 9.1 mg/dL (8.5-10.1); CREATININE 1.2 mg/dL (0.6-1.0); GFR 53.4; POTASSIUM 4.4 mmol/L (3.5-5.1); TOTAL BILIRUBIN 0.3 mg/dL (0.2-1.0); TOTAL PROTEIN 7.9 g/dL (6.4-8.2)
[2018-03-25] MEDS: BUDESONIDE 0.5 MG/2 ML NEBU NEB SCH ×2 (10:27→20:19)
[2018-03-25 16:36] VITALS: BP 150/77
--- NOTE | 2018-03-25 20:31 | PN ---
DATE: 03/24/2018 This late entry 03/24/2018 covers elements not covered in my initial note. The patient was staffed at treatment team meeting. I saw her individually. She does have a history of sleep apnea, but is not using any CPAP here. We will check with the care home if she was using it there and check her nocturnal desaturation studies to make sure this is not partly contributing to her confusion. We will also check a CT head. Reportedly, she has a long psychiatric history according to the family. She is compliant with the medications, puts herself on the floor at times, delusional, believes she is in a libertarian. REVIEW OF SYSTEMS: Ambulation impaired, in wheelchair. No CV, , pulmonary, eye system symptoms on review. MENTAL STATUS EXAM: Oriented to herself and situation. Speech is coherent, has some latency. Abstraction fair, computation impaired, language function intact. Mood and affect showing some improvement. LABORATORY DATA: Reviewed. IMPRESSION: Unchanged from initial note. PLAN: Continue current psychotropics. BEA SAWANT MD DR: MARK/daphne JOB#: [id number] / [id number]
[2018-03-25] MEDS: MELATONIN 3 MG TABLET PO SCH (20:52)
[2018-03-25] MEDS: MIRTAZAPINE 7.5 MG TABLET. PO SCH (20:52)
[2018-03-25] MEDS: ALPRAZolam 0.25 MG TABLET PO SCH (20:53)
--- NOTE | 2018-03-25 22:28 | PDOC ---
Exam Note: Neal Note: Please also refer to the separate dictated note~for this date of service dictated separately.~Patient seen individually. Discussed the patient with Nursing staff reviewed the chart.~Reviewed interim history and current functioning. Reviewed vital signs,~Labs/ Radiology~and current medications noted below. Continue current treatment with the changes noted in the dictated addendum note Assessment: Vital Signs: Vital Signs Date Time Temp Pulse Resp B/P (MAP) Pulse Ox O2 Delivery O2 Flow Rate FiO2 03/25/18 20:20 99 Room Air 03/25/18 16:36 97.3 87 18 150/77 (101) I&O Intake and Output 03/25/18 07:00 Intake Total 1200 ml Balance 1200 ml Intake Oral 1200 ml # Bowel Movements 1 Labs: Laboratory Tests Test 03/25/18 07:21 03/25/18 07:36 03/25/18 11:24 03/25/18 16:21 Glucose (Fingerstick) 161 mg/dL (70-99) H 244 mg/dL (70-99) H 318 mg/dL (70-99) H White Blood Count 7.6 x10^3/uL (4.0-11.0) Red Blood Count 3.67 x10^6/uL (3.50-5.40) Hemoglobin 10.0 g/dL (12.0-15.5) L Hematocrit 30.8 % (36.0-47.0) L Mean Corpuscular Volume 84 fL (79-100) Mean Corpuscular Hemoglobin 27 pg (25-35) Mean Corpuscular Hemoglobin Concent 33 g/dL (31-37) Red Cell Distribution Width 16.5 % (11.5-14.5) H Platelet Count 338 x10^3/uL (140-400) Neutrophils (%) (Auto) 59 % (31-73) Lymphocytes (%) (Auto) 31 % (24-48) Monocytes (%) (Auto) 8 % (0-9) Eosinophils (%) (Auto) 2 % (0-3) Basophils (%) (Auto) 1 % (0-3) Neutrophils # (Auto) 4.4 x10^3uL (1.8-7.7) Lymphocytes # (Auto) 2.4 x10^3/uL (1.0-4.8) Monocytes # (Auto) 0.6 x10^3/uL (0.0-1.1) Eosinophils # (Auto) 0.1 x10^3/uL (0.0-0.7) Basophils # (Auto) 0.0 x10^3/uL (0.0-0.2) Sodium Level 143 mmol/L (136-145) Potassium Level 4.4 mmol/L (3.5-5.1) Chloride Level 106 mmol/L (98-107) Carbon Dioxide Level 30 mmol/L (21-32) Anion Gap 7 (6-14) Blood Urea Nitrogen 29 mg/dL (7-20) H Creatinine 1.2 mg/dL (0.6-1.0) H Estimated GFR (Cockcroft-Gault) 53.4 BUN/Creatinine Ratio 24 (6-20) H Glucose Level 170 mg/dL (70-99) H Calcium Level 9.1 mg/dL (8.5-10.1) Total Bilirubin 0.3 mg/dL (0.2-1.0) Aspartate Amino Transferase (AST) 14 U/L (15-37) L Alanine Aminotransferase (ALT) 20 U/L (14-59) Alkaline Phosphatase 88 U/L (46-116) Total Protein 7.9 g/dL (6.4-8.2) Albumin 3.3 g/dL (3.4-5.0) L Albumin/Globulin Ratio 0.7 (1.0-1.7) L Test 03/25/18 19:02 Glucose (Fingerstick) 209 mg/dL (70-99) H Current Medications: Meds: Current Medications Acetaminophen (Tylenol) 1,000 mg 1X ONCE PO Last administered on 02/22/18at 03: 05; Start 02/22/18 at 03:30; Stop 02/22/18 at 03:31; Status DC Alprazolam (Xanax) 0.5 mg QHS PO Last administered on 03/11/18at 19:50; Start at 21:00; Stop 03/12/18 at 18:14; Status DC Duloxetine HCl (Cymbalta) 60 mg DAILY PO Last administered on 03/25/18at 08:06; Start 02/22/18 at 09:00 Melatonin 6 mg QHS PO Last administered on 03/25/18at 20:52; Start 02/22/18 at 21:00 Risperidone (RisperDAL) 0.25 mg BID PO Last administered on 02/23/18at 08:51; Start 02/22/18 at 09:00; Stop 02/23/18 at 13:23; Status DC Acetaminophen (Tylenol) 650 mg PRN Q6HRS PRN PO PAIN / TEMP Last administered on 03/11/18at 17:24; Start 02/22/18 at 05:00 Albuterol Sulfate (Ventolin) 2.5 mg PRN Q4HRS PRN NEB Dyspnea; Start 02/22/18 at 05:00 Diclofenac Sodium (Voltaren) 4 sam PRN QID PRN TP R Knee Pain; Start 02/22/18 at 05:00 Dicyclomine HCl (Bentyl) 10 mg PRN Q8HRS PRN PO Bowel Cramps; Start 02/22/18 at 05:00 Ferrous Sulfate (Feosol) 325 mg DAILY PO Last administered on 03/25/18at 08:07; Start 02/22/18 at 09:00 Gabapentin (Neurontin) 300 mg BID PO Last administered on 03/25/18at 20:52; Start 02/22/18 at 09:00 Hydrocortisone (Proctosol-Hc) 1 sam PRN Q24HRS PRN RC Hemorrhoids; Start at 05:00 Insulin Aspart (NovoLOG) BS 200-2,50= 2 un... TIDWMEALHC SQ ; Start 02/22/18 at 08:00; Stop 02/22/18 at 08:01; Status DC Al Hydroxide/Mg Hydroxide (Mylanta Plus Xs) 15 ml PRN AFTMEALHC PRN PO DYSPEPSIA Last administered on 03/20/18at 04:14; Start 02/22/18 at 05:00 Magnesium Hydroxide (Milk Of Magnesia) 2,400 mg PRN QHS PRN PO CONSTIPATION Last administered on 03/20/18at 08:23; Start 02/22/18 at 05:00 Nitroglycerin (Nitrostat) 0.4 mg PRN Q5MIN PRN SL CHEST PAIN; Start 02/22/18 at 05:00 Nystatin (Nystop) 1 sam PRN TID PRN TP REDNESS; Start 02/22/18 at 05:00 Oxycodone/ Acetaminophen (Percocet 10/325) 1 tab BID PO Last administered on at 20:54; Start 02/22/18 at 09:00 Oxycodone/ Acetaminophen (Percocet 10/325) 1 tab PRN Q4HRS PRN PO PAIN Last administered on 03/17/18at 17:39; Start 02/22/18 at 05:00 Amlodipine Besylate (Norvasc) 10 mg DAILY PO Last administered on 03/25/18at 08: 06; Start 02/22/18 at 09:00 Ascorbic Acid (Vitamin C) 500 mg DAILY PO Last administered on 03/25/18at 08:06 ; Start 02/22/18 at 09:00 Budesonide (Pulmicort) 0.5 mg RTBID NEB Last administered on 03/25/18at 20:19; Start 02/22/18 at 08:00 Celecoxib (CeleBREX) 100 mg BID PO Last administered on 03/04/18at 07:58; Start 02/22/18 at 09:00; Stop 03/04/18 at 17:39; Status DC Artificial Tears (Artificial Tears) 1 drop TID PRN PRN OU DRY EYE; Start at 05:30 Famotidine (Pepcid) 20 mg DAILY PO Last administered on 03/25/18at 08:07; Start 02/22/18 at 09:00 Guaifenesin (Robitussin Dm) 10 ml PRN Q4HRS PRN PO COUGH; Start 02/22/18 at 05: 30 Hydrocortisone Acetate (Anucort-Hc) 25 mg PRN Q12HR PRN [place] RECTAL PAIN; Start 02/22/18 at 05:30 Levetiracetam (Keppra) 500 mg BID PO Last administered on 03/25/18at 20:52; Start 02/22/18 at 09:00 Loperamide HCl (Imodium) 2 mg PRN Q4HRS PRN PO DIARRHEA; Start 02/22/18 at 05: 30 Ondansetron HCl (Zofran Odt) 4 mg PRN Q4HRS PRN PO NAUSEA/VOMITING; Start 02/22 at 05:30 Pioglitazone HCl (Actos) 15 mg DAILY PO Last administered on 03/25/18at 08:06; Start 02/22/18 at 09:00 Multi-Ingredient Ointment (Analgesic [place]) 1 sam PRN QID PRN TP MUSCLE PAIN; Start 02/22/18 at 05:00 Insulin Human Lispro (HumaLOG) TIDWMEALHC SQ Last administered on 03/25/18at 20 :55; Start 02/22/18 at 08:00 Mirtazapine (Remeron) 7.5 mg QHS PO Last administered on 03/25/18at 20:52; Start 02/22/18 at 21:00 Risperidone (RisperDAL) 0.375 mg BID PO Last administered on 02/26/18at 11:50; Start 02/23/18 at 21:00; Stop 02/26/18 at 19:49; Status DC Olanzapine (ZyPREXA ZYDIS) 5 mg PRN Q2HR PRN PO PSYCHOSIS Last administered on 03/18/18at 07:53; Start 02/23/18 at 19:45 Divalproex Sodium (Depakote Sprinkles) 125 mg TID@0900,1300,1700 PO Last administered on 03/01/18at 17:39; Start 02/26/18 at 09:00; Stop 03/01/18 at 18:29 ; Status DC Risperidone (RisperDAL) 0.5 mg BID PO Last administered on 03/01/18at 10:17; Start 02/26/18 at 21:00; Stop 03/01/18 at 18:29; Status DC Divalproex Sodium (Depakote Sprinkles) 250 mg TID@0900,1300,1700 PO Last administered on 03/04/18at 17:59; Start 03/02/18 at 09:00; Stop 03/04/18 at 19:22 ; Status DC Risperidone (RisperDAL) 0.75 mg BID PO Last administered on 03/13/18at 07:42; Start 03/01/18 at 21:00; Stop 03/13/18 at 15:04; Status DC Divalproex Sodium (Depakote Er) 1,000 mg QHS PO Last administered on 03/06/18at 19:17; Start 03/04/18 at 21:00; Stop 03/07/18 at 19:54; Status DC Divalproex Sodium (Depakote Er) 1,000 mg QHS PO Last administered on 03/14/18 21:12; Start 03/07/18 at 21:00; Stop 03/15/18 at 18:49; Status DC Divalproex Sodium (Depakote Er) 250 mg QHS PO Last administered on 03/14/18 21: 12; Start 03/07/18 at 21:00; Stop 03/15/18 at 18:49; Status DC Alprazolam (Xanax) 0.25 mg QHS PO Last administered on 03/25/18at 20:53; Start 03/13/18 at 21:00; Stop 03/27/18 at 23:00 Risperidone (RisperDAL) 0.75 mg HS PO Last administered on 03/14/18 21:12; Start 03/13/18 at 21:00; Stop 03/15/18 at 18:49; Status DC Oxcarbazepine (Trileptal) 150 mg BID PO Last administered on 03/25/18at 20:52; Start 03/18/18 at 21:00 Active Scripts Active Reported Novolog Flexpen (Insulin Aspart) 100 Unit/1 Ml Insuln.pen 2-10 Units SQ TIDWMEALHC Risperdal (Risperidone) 0.25 Mg Tablet 0.25 Mg BID Cymbalta (Duloxetine Hcl) 60 Mg Capsule.dr 60 Mg PO DAILY Famotidine 20 Mg Tablet 20 Mg PO BID Mag-Al Plus Xs Suspension (Mag Hydrox/Al Hydrox/Simeth) 30 Ml Oral.susp 15 Ml PO PRN AFTMEALHC PRN Celebrex (Celecoxib) 100 Mg Capsule 100 Mg PO BID Vitamin C (Ascorbate Calcium) 500 Mg Tablet 500 Mg PO DAILY Robitussin Cough-Chest Dm Liq (Guaifenesin/Dextromethorphan) 237 Ml Liquid 10 Ml PO PRN Q4HRS PRN Percocet 10-325 Mg Tablet (Oxycodone Hcl/Acetaminophen) 1 Each Tablet 1 Tab PO PRN Q4HRS PRN Percocet 10-325 Mg Tablet (Oxycodone Hcl/Acetaminophen) 1 Each Tablet 1 Tab PO BID Ondansetron Hcl 4 Mg Tablet 4 Mg PO PRN Q4HRS PRN Nystatin 15 Gm Powder 1 Sam TP PRN TID PRN Nitrostat (Nitroglycerin) 0.4 Mg Tab.subl 0.4 Mg SL PRN Q5MIN PRN MDD 3tabs Melatonin 5 Mg Tablet (Melatonin/Pyridoxine) 1 Each Tablet 6 Mg PO QHS Loperamide (Loperamide Hcl) 2 Mg Tablet 2 Mg PO PRN Q4HRS PRN MDD 16mg Keppra (Levetiracetam) 500 Mg Tablet 500 Mg PO BID Ferrous Sulfate 325 Mg Tablet 325 Mg PO DAILY Neurontin (Gabapentin) 300 Mg Capsule 300 Mg PO TID Voltaren (Diclofenac Sodium) 100 Gm Gel..gram. 4 Gm TP PRN QID PRN Budesonide 0.5 Mg/2 Ml Ampul.neb 0.5 Mg NEB PRN BID PRN Dicyclomine Hcl 10 Mg Capsule 10 Mg PO PRN Q8HRS PRN Artificial Tears Eye Drops (Dextran 70/Hypromellose) 15 Ml Drops 1 Drop OU TID PRN Anusol-Hc (Hydrocortisone Acetate) 25 Mg Supp.rect 25 Mg RC PRN Q12HR PRN Anusol-Hc (Hydrocortisone) 30 Gm Cream..g. 1 Sam RC PRN Q24HRS PRN Norvasc (Amlodipine Besylate) 10 Mg Tablet 10 Mg PO DAILY Alprazolam 0.5 Mg Tablet 0.5 Mg PO HS Tylenol (Acetaminophen) 325 Mg Tablet 650 Mg PO PRN Q6HRS PRN Albuterol Sulfate Neb Soln (Albuterol Sulfate) 2.5 Mg/3 Ml Vial.neb 2.5 Mg NEB PRN Q4HRS PRN Milk Of Magnesia (Magnesium Hydroxide) 400 Mg/5 Ml Oral.susp 2,400 Mg PO PRN QHS PRN Actos (Pioglitazone Hcl) 15 Mg Tablet 15 Mg PO [id number] I have reviewed the current psychotropics carefully including drug interactions. Risk benefit ratio favors no change other than as noted in my dictated progress note. Diagnosis: Problems: (1) Anxiety disorder (2) Impulse control disorder (3) Major depressive disorder, recurrent episode (4) Mild cognitive impairment BEA SAWANT MD Mar 25, 2018 22:28
[2018-03-26 06:33] VITALS: BP 152/78
[2018-03-26] MEDS: INSULIN LISPRO 300 UNITS/3 ML INSULN.PEN. SQ SCH ×4 (08:00→19:20)
[2018-03-26] MEDS: FAMOTIDINE 20 MG TABLET PO SCH (08:56)
[2018-03-26] MEDS: PIOGLITAZONE 15 MG TABLET. PO SCH (08:57)
[2018-03-26] MEDS: DULoxetine HCL 60 MG CAPSULE.DR PO SCH (08:57)
[2018-03-26] MEDS: FERROUS SULFATE 325 MG TABLET. PO SCH (08:57)
[2018-03-26] MEDS: levETIRAcetam 500 MG TABLET PO SCH ×2 (08:57→19:18)
[2018-03-26] MEDS: amLODIPine BESYLATE 10 MG TABLET PO SCH (08:57)
[2018-03-26] MEDS: ASCORBIC ACID 500 MG TABLET PO SCH (08:57)
[2018-03-26] MEDS: GABAPENTIN 300 MG CAPSULE. PO SCH ×2 (08:57→19:18)
[2018-03-26] MEDS: OXcarbazepine 150 MG TABLET. PO SCH ×2 (08:57→19:17)
[2018-03-26] MEDS: oxyCODONE/APAP 10/325 1 TAB TABLET PO SCH ×2 (08:59→19:18)
[2018-03-26] MEDS: BUDESONIDE 0.5 MG/2 ML NEBU NEB SCH ×2 (10:03→20:13)
--- NOTE | 2018-03-26 13:33 | PN ---
DATE: 03/23/2018 PSYCHIATRIC PROGRESS NOTE This is a late entry of 03/23/2018, covers elements not covered in my initial note. SUBJECTIVE: The patient slept 5-3/4 hours. She remains somewhat delusional, forgetful, states she is ready for her boy's birthday. She thinks her children are currently small and she is still raising them. REVIEW OF SYSTEMS: Ambulation impaired, in wheelchair. No CV, , pulmonary, eye, ENT system symptoms on review. MENTAL STATUS EXAM: Oriented to herself and situation at times. Insight, judgment, recent memory is impaired. Language function intact. Attention span short. Mood and affect less labile. LABORATORY DATA: Reviewed. IMPRESSION: Major depressive disorder with psychotic features; major neurocognitive disorder, Alzheimer, vascular with delusion, depression, rule out bipolar 1 disorder, mixed with psychotic features. PLAN: Overall, the patient appears cognitively clearer. We will persist with current medications mentioned in my initial note. BEA SAWANT MD DR: MARK/daphne JOB#: [id number] / [id number]
[2018-03-26 16:15] VITALS: BP 158/85
[2018-03-26] MEDS: ACETAMINOPHEN 325 MG TABLET PO PRN (16:44)
[2018-03-26] MEDS: MELATONIN 3 MG TABLET PO SCH (19:17)
[2018-03-26] MEDS: MIRTAZAPINE 7.5 MG TABLET. PO SCH (19:18)
[2018-03-26] MEDS: ALPRAZolam 0.25 MG TABLET PO SCH (19:18)
--- NOTE | 2018-03-26 22:32 | PDOC ---
Exam Note: Neal Note: Please also refer to the separate dictated note~for this date of service dictated separately.~Patient seen individually. Discussed the patient with Nursing staff reviewed the chart.~Reviewed interim history and current functioning. Reviewed vital signs,~Labs/ Radiology~and current medications noted below. Continue current treatment with the changes noted in the dictated addendum note Assessment: Vital Signs: Vital Signs Date Time Temp Pulse Resp B/P (MAP) Pulse Ox O2 Delivery O2 Flow Rate FiO2 03/26/18 20:16 99 Room Air 03/26/18 16:15 98.5 88 20 158/85 (109) I&O Intake and Output 03/26/18 07:01 Intake Total 1080 ml Balance 1080 ml Intake Oral 1080 ml Labs: Laboratory Tests Test 03/26/18 07:54 03/26/18 11:26 03/26/18 16:32 03/26/18 19:02 Glucose (Fingerstick) 151 mg/dL (70-99) H 230 mg/dL (70-99) H 303 mg/dL (70-99) H 344 mg/dL (70-99) H Current Medications: Meds: Current Medications Acetaminophen (Tylenol) 1,000 mg 1X ONCE PO Last administered on 02/22/18at 03: 05; Start 02/22/18 at 03:30; Stop 02/22/18 at 03:31; Status DC Alprazolam (Xanax) 0.5 mg QHS PO Last administered on 03/11/18at 19:50; Start at 21:00; Stop 03/12/18 at 18:14; Status DC Duloxetine HCl (Cymbalta) 60 mg DAILY PO Last administered on 03/26/18at 08:57; Start 02/22/18 at 09:00 Melatonin 6 mg QHS PO Last administered on 03/26/18at 19:17; Start 02/22/18 at 21:00 Risperidone (RisperDAL) 0.25 mg BID PO Last administered on 02/23/18at 08:51; Start 02/22/18 at 09:00; Stop 02/23/18 at 13:23; Status DC Acetaminophen (Tylenol) 650 mg PRN Q6HRS PRN PO PAIN / TEMP Last administered on 03/26/18at 16:44; Start 02/22/18 at 05:00 Albuterol Sulfate (Ventolin) 2.5 mg PRN Q4HRS PRN NEB Dyspnea; Start 02/22/18 at 05:00 Diclofenac Sodium (Voltaren) 4 sam PRN QID PRN TP R Knee Pain; Start 02/22/18 at 05:00 Dicyclomine HCl (Bentyl) 10 mg PRN Q8HRS PRN PO Bowel Cramps; Start 02/22/18 at 05:00 Ferrous Sulfate (Feosol) 325 mg DAILY PO Last administered on 03/26/18at 08:57; Start 02/22/18 at 09:00 Gabapentin (Neurontin) 300 mg BID PO Last administered on 03/26/18 19:18; Start 02/22/18 at 09:00 Hydrocortisone (Proctosol-Hc) 1 sam PRN Q24HRS PRN RC Hemorrhoids; Start at 05:00 Insulin Aspart (NovoLOG) BS 200-2,50= 2 un... TIDWMEALHC SQ ; Start 02/22/18 at 08:00; Stop 02/22/18 at 08:01; Status DC Al Hydroxide/Mg Hydroxide (Mylanta Plus Xs) 15 ml PRN AFTMEALHC PRN PO DYSPEPSIA Last administered on 03/20/18at 04:14; Start 02/22/18 at 05:00 Magnesium Hydroxide (Milk Of Magnesia) 2,400 mg PRN QHS PRN PO CONSTIPATION Last administered on 03/20/18at 08:23; Start 02/22/18 at 05:00 Nitroglycerin (Nitrostat) 0.4 mg PRN Q5MIN PRN SL CHEST PAIN; Start 02/22/18 at 05:00 Nystatin (Nystop) 1 sam PRN TID PRN TP REDNESS; Start 02/22/18 at 05:00 Oxycodone/ Acetaminophen (Percocet 10/325) 1 tab BID PO Last administered on at 19:18; Start 02/22/18 at 09:00 Oxycodone/ Acetaminophen (Percocet 10/325) 1 tab PRN Q4HRS PRN PO PAIN Last administered on 03/17/18at 17:39; Start 02/22/18 at 05:00 Amlodipine Besylate (Norvasc) 10 mg DAILY PO Last administered on 03/26/18 08: 57; Start 02/22/18 at 09:00 Ascorbic Acid (Vitamin C) 500 mg DAILY PO Last administered on 03/26/18at 08:57 ; Start 02/22/18 at 09:00 Budesonide (Pulmicort) 0.5 mg RTBID NEB Last administered on 03/26/18at 20:13; Start 02/22/18 at 08:00 Celecoxib (CeleBREX) 100 mg BID PO Last administered on 03/04/18at 07:58; Start 02/22/18 at 09:00; Stop 03/04/18 at 17:39; Status DC Artificial Tears (Artificial Tears) 1 drop TID PRN PRN OU DRY EYE; Start at 05:30 Famotidine (Pepcid) 20 mg DAILY PO Last administered on 03/26/18at 08:56; Start 02/22/18 at 09:00 Guaifenesin (Robitussin Dm) 10 ml PRN Q4HRS PRN PO COUGH; Start 02/22/18 at 05: 30 Hydrocortisone Acetate (Anucort-Hc) 25 mg PRN Q12HR PRN MD RECTAL PAIN; Start 02/22/18 at 05:30 Levetiracetam (Keppra) 500 mg BID PO Last administered on 03/26/18 19:18; Start 02/22/18 at 09:00 Loperamide HCl (Imodium) 2 mg PRN Q4HRS PRN PO DIARRHEA; Start 02/22/18 at 05: 30 Ondansetron HCl (Zofran Odt) 4 mg PRN Q4HRS PRN PO NAUSEA/VOMITING; Start 02/22 at 05:30 Pioglitazone HCl (Actos) 15 mg DAILY PO Last administered on 03/26/18at 08:57; Start 02/22/18 at 09:00 Multi-Ingredient Ointment (Analgesic [place]) 1 sam PRN QID PRN TP MUSCLE PAIN; Start 02/22/18 at 05:00 Insulin Human Lispro (HumaLOG) TIDWMEALHC SQ Last administered on 03/26/18at 19 :20; Start 02/22/18 at 08:00 Mirtazapine (Remeron) 7.5 mg QHS PO Last administered on 03/26/18 19:18; Start 02/22/18 at 21:00 Risperidone (RisperDAL) 0.375 mg BID PO Last administered on 02/26/18at 11:50; Start 02/23/18 at 21:00; Stop 02/26/18 at 19:49; Status DC Olanzapine (ZyPREXA ZYDIS) 5 mg PRN Q2HR PRN PO PSYCHOSIS Last administered on 03/18/18at 07:53; Start 02/23/18 at 19:45 Divalproex Sodium (Depakote Sprinkles) 125 mg TID@0900,1300,1700 PO Last administered on 03/01/18at 17:39; Start 02/26/18 at 09:00; Stop 03/01/18 at 18:29 ; Status DC Risperidone (RisperDAL) 0.5 mg BID PO Last administered on 03/01/18at 10:17; Start 02/26/18 at 21:00; Stop 03/01/18 at 18:29; Status DC Divalproex Sodium (Depakote Sprinkles) 250 mg TID@0900,1300,1700 PO Last administered on 03/04/18at 17:59; Start 03/02/18 at 09:00; Stop 03/04/18 at 19:22 ; Status DC Risperidone (RisperDAL) 0.75 mg BID PO Last administered on 03/13/18 07:42; Start 03/01/18 at 21:00; Stop 03/13/18 at 15:04; Status DC Divalproex Sodium (Depakote Er) 1,000 mg QHS PO Last administered on 03/06/18at 19:17; Start 03/04/18 at 21:00; Stop 03/07/18 at 19:54; Status DC Divalproex Sodium (Depakote Er) 1,000 mg QHS PO Last administered on 03/14/18 21:12; Start 03/07/18 at 21:00; Stop 03/15/18 at 18:49; Status DC Divalproex Sodium (Depakote Er) 250 mg QHS PO Last administered on 03/14/18 21: 12; Start 03/07/18 at 21:00; Stop 03/15/18 at 18:49; Status DC Alprazolam (Xanax) 0.25 mg QHS PO Last administered on 03/26/18at 19:18; Start 03/13/18 at 21:00; Stop 03/27/18 at 23:00 Risperidone (RisperDAL) 0.75 mg HS PO Last administered on 03/14/18at 21:12; Start 03/13/18 at 21:00; Stop 03/15/18 at 18:49; Status DC Oxcarbazepine (Trileptal) 150 mg BID PO Last administered on 03/26/18at 19:17; Start 03/18/18 at 21:00 Active Scripts Active Reported Novolog Flexpen (Insulin Aspart) 100 Unit/1 Ml Insuln.pen 2-10 Units SQ TIDWMEALHC Risperdal (Risperidone) 0.25 Mg Tablet 0.25 Mg BID Cymbalta (Duloxetine Hcl) 60 Mg Capsule.dr 60 Mg PO DAILY Famotidine 20 Mg Tablet 20 Mg PO BID Mag-Al Plus Xs Suspension (Mag Hydrox/Al Hydrox/Simeth) 30 Ml Oral.susp 15 Ml PO PRN AFTMEALHC PRN Celebrex (Celecoxib) 100 Mg Capsule 100 Mg PO BID Vitamin C (Ascorbate Calcium) 500 Mg Tablet 500 Mg PO DAILY Robitussin Cough-Chest Dm Liq (Guaifenesin/Dextromethorphan) 237 Ml Liquid 10 Ml PO PRN Q4HRS PRN Percocet 10-325 Mg Tablet (Oxycodone Hcl/Acetaminophen) 1 Each Tablet 1 Tab PO PRN Q4HRS PRN Percocet 10-325 Mg Tablet (Oxycodone Hcl/Acetaminophen) 1 Each Tablet 1 Tab PO BID Ondansetron Hcl 4 Mg Tablet 4 Mg PO PRN Q4HRS PRN Nystatin 15 Gm Powder 1 Sam TP PRN TID PRN Nitrostat (Nitroglycerin) 0.4 Mg Tab.subl 0.4 Mg SL PRN Q5MIN PRN MDD 3tabs Melatonin 5 Mg Tablet (Melatonin/Pyridoxine) 1 Each Tablet 6 Mg PO QHS Loperamide (Loperamide Hcl) 2 Mg Tablet 2 Mg PO PRN Q4HRS PRN MDD 16mg Keppra (Levetiracetam) 500 Mg Tablet 500 Mg PO BID Ferrous Sulfate 325 Mg Tablet 325 Mg PO DAILY Neurontin (Gabapentin) 300 Mg Capsule 300 Mg PO TID Voltaren (Diclofenac Sodium) 100 Gm Gel..gram. 4 Gm TP PRN QID PRN Budesonide 0.5 Mg/2 Ml Ampul.neb 0.5 Mg NEB PRN BID PRN Dicyclomine Hcl 10 Mg Capsule 10 Mg PO PRN Q8HRS PRN Artificial Tears Eye Drops (Dextran 70/Hypromellose) 15 Ml Drops 1 Drop OU TID PRN Anusol-Hc (Hydrocortisone Acetate) 25 Mg Supp.rect 25 Mg RC PRN Q12HR PRN Anusol-Hc (Hydrocortisone) 30 Gm Cream..g. 1 Sam RC PRN Q24HRS PRN Norvasc (Amlodipine Besylate) 10 Mg Tablet 10 Mg PO DAILY Alprazolam 0.5 Mg Tablet 0.5 Mg PO HS Tylenol (Acetaminophen) 325 Mg Tablet 650 Mg PO PRN Q6HRS PRN Albuterol Sulfate Neb Soln (Albuterol Sulfate) 2.5 Mg/3 Ml Vial.neb 2.5 Mg NEB PRN Q4HRS PRN Milk Of Magnesia (Magnesium Hydroxide) 400 Mg/5 Ml Oral.susp 2,400 Mg PO PRN QHS PRN Actos (Pioglitazone Hcl) 15 Mg Tablet 15 Mg PO [id number] I have reviewed the current psychotropics carefully including drug interactions. Risk benefit ratio favors no change other than as noted in my dictated progress note. Diagnosis: Problems: (1) Anxiety disorder (2) Impulse control disorder (3) Major depressive disorder, recurrent episode (4) Mild cognitive impairment BEA SAWANT MD Mar 26, 2018 22:32
[2018-03-27 06:17] VITALS: BP 157/80
[2018-03-27] MEDS: INSULIN LISPRO 300 UNITS/3 ML INSULN.PEN. SQ SCH ×4 (08:00→19:49)
[2018-03-27] MEDS: BUDESONIDE 0.5 MG/2 ML NEBU NEB SCH ×2 (10:16→20:19)
[2018-03-27] MEDS: FERROUS SULFATE 325 MG TABLET. PO SCH (10:48)
[2018-03-27] MEDS: PIOGLITAZONE 15 MG TABLET. PO SCH (10:49)
[2018-03-27] MEDS: levETIRAcetam 500 MG TABLET PO SCH ×2 (10:49→19:45)
[2018-03-27] MEDS: amLODIPine BESYLATE 10 MG TABLET PO SCH (10:49)
[2018-03-27] MEDS: FAMOTIDINE 20 MG TABLET PO SCH (10:49)
[2018-03-27] MEDS: GABAPENTIN 300 MG CAPSULE. PO SCH ×2 (10:49→19:44)
[2018-03-27] MEDS: DULoxetine HCL 60 MG CAPSULE.DR PO SCH (10:49)
[2018-03-27] MEDS: ASCORBIC ACID 500 MG TABLET PO SCH (10:50)
[2018-03-27] MEDS: OXcarbazepine 150 MG TABLET. PO SCH ×2 (10:50→19:45)
[2018-03-27] MEDS: oxyCODONE/APAP 10/325 1 TAB TABLET PO SCH ×2 (10:54→19:44)
[2018-03-27 15:50] VITALS: BP 139/60
[2018-03-27] MEDS: MIRTAZAPINE 7.5 MG TABLET. PO SCH (19:44)
[2018-03-27] MEDS: MELATONIN 3 MG TABLET PO SCH (19:45)
[2018-03-27] MEDS: ALPRAZolam 0.25 MG TABLET PO SCH (19:46)
--- NOTE | 2018-03-27 21:03 | PDOC ---
Exam Note: Neal Note: Please also refer to the separate dictated note~for this date of service dictated separately.~Patient seen individually. Discussed the patient with Nursing staff reviewed the chart.~Reviewed interim history and current functioning. Reviewed vital signs,~Labs/ Radiology~and current medications noted below. Continue current treatment with the changes noted in the dictated addendum note Assessment: Vital Signs: Vital Signs Date Time Temp Pulse Resp B/P (MAP) Pulse Ox O2 Delivery O2 Flow Rate FiO2 03/27/18 20:20 100 Room Air 03/27/18 15:50 97.0 78 18 139/60 (86) I&O Intake and Output 03/27/18 07:01 Intake Total 905 ml Balance 905 ml Intake Oral 905 ml # Voids 1 # Bowel Movements 2 Labs: Laboratory Tests Test 03/27/18 07:15 03/27/18 07:41 03/27/18 11:14 03/27/18 16:37 Glucose (Fingerstick) 132 mg/dL (70-99) H 132 mg/dL (70-99) H 129 mg/dL (70-99) H 240 mg/dL (70-99) H Test 03/27/18 19:27 Glucose (Fingerstick) 328 mg/dL (70-99) H Current Medications: Meds: Current Medications Acetaminophen (Tylenol) 1,000 mg 1X ONCE PO Last administered on 02/22/18at 03: 05; Start 02/22/18 at 03:30; Stop 02/22/18 at 03:31; Status DC Alprazolam (Xanax) 0.5 mg QHS PO Last administered on 03/11/18at 19:50; Start at 21:00; Stop 03/12/18 at 18:14; Status DC Duloxetine HCl (Cymbalta) 60 mg DAILY PO Last administered on 03/27/18at 10:49; Start 02/22/18 at 09:00 Melatonin 6 mg QHS PO Last administered on 03/27/18at 19:45; Start 02/22/18 at 21:00 Risperidone (RisperDAL) 0.25 mg BID PO Last administered on 02/23/18at 08:51; Start 02/22/18 at 09:00; Stop 02/23/18 at 13:23; Status DC Acetaminophen (Tylenol) 650 mg PRN Q6HRS PRN PO PAIN / TEMP Last administered on 03/26/18at 16:44; Start 02/22/18 at 05:00 Albuterol Sulfate (Ventolin) 2.5 mg PRN Q4HRS PRN NEB Dyspnea; Start 02/22/18 at 05:00 Diclofenac Sodium (Voltaren) 4 sam PRN QID PRN TP R Knee Pain; Start 02/22/18 at 05:00 Dicyclomine HCl (Bentyl) 10 mg PRN Q8HRS PRN PO Bowel Cramps; Start 02/22/18 at 05:00 Ferrous Sulfate (Feosol) 325 mg DAILY PO Last administered on 03/27/18at 10:48; Start 02/22/18 at 09:00 Gabapentin (Neurontin) 300 mg BID PO Last administered on 03/27/18 19:44; Start 02/22/18 at 09:00 Hydrocortisone (Proctosol-Hc) 1 sam PRN Q24HRS PRN RC Hemorrhoids; Start at 05:00 Insulin Aspart (NovoLOG) BS 200-2,50= 2 un... TIDWMEALHC SQ ; Start 02/22/18 at 08:00; Stop 02/22/18 at 08:01; Status DC Al Hydroxide/Mg Hydroxide (Mylanta Plus Xs) 15 ml PRN AFTMEALHC PRN PO DYSPEPSIA Last administered on 03/20/18at 04:14; Start 02/22/18 at 05:00 Magnesium Hydroxide (Milk Of Magnesia) 2,400 mg PRN QHS PRN PO CONSTIPATION Last administered on 03/20/18at 08:23; Start 02/22/18 at 05:00 Nitroglycerin (Nitrostat) 0.4 mg PRN Q5MIN PRN SL CHEST PAIN; Start 02/22/18 at 05:00 Nystatin (Nystop) 1 sam PRN TID PRN TP REDNESS; Start 02/22/18 at 05:00 Oxycodone/ Acetaminophen (Percocet 10/325) 1 tab BID PO Last administered on at 19:44; Start 02/22/18 at 09:00 Oxycodone/ Acetaminophen (Percocet 10/325) 1 tab PRN Q4HRS PRN PO PAIN Last administered on 03/17/18at 17:39; Start 02/22/18 at 05:00 Amlodipine Besylate (Norvasc) 10 mg DAILY PO Last administered on 03/27/18at 10: 49; Start 02/22/18 at 09:00 Ascorbic Acid (Vitamin C) 500 mg DAILY PO Last administered on 03/27/18at 10:50 ; Start 02/22/18 at 09:00 Budesonide (Pulmicort) 0.5 mg RTBID NEB Last administered on 03/27/18at 20:19; Start 02/22/18 at 08:00 Celecoxib (CeleBREX) 100 mg BID PO Last administered on 03/04/18at 07:58; Start 02/22/18 at 09:00; Stop 03/04/18 at 17:39; Status DC Artificial Tears (Artificial Tears) 1 drop TID PRN PRN OU DRY EYE; Start at 05:30 Famotidine (Pepcid) 20 mg DAILY PO Last administered on 03/27/18at 10:49; Start 02/22/18 at 09:00 Guaifenesin (Robitussin Dm) 10 ml PRN Q4HRS PRN PO COUGH; Start 02/22/18 at 05: 30 Hydrocortisone Acetate (Anucort-Hc) 25 mg PRN Q12HR PRN HI RECTAL PAIN; Start 02/22/18 at 05:30 Levetiracetam (Keppra) 500 mg BID PO Last administered on 03/27/18at 19:45; Start 02/22/18 at 09:00 Loperamide HCl (Imodium) 2 mg PRN Q4HRS PRN PO DIARRHEA; Start 02/22/18 at 05: 30 Ondansetron HCl (Zofran Odt) 4 mg PRN Q4HRS PRN PO NAUSEA/VOMITING; Start 02/22 at 05:30 Pioglitazone HCl (Actos) 15 mg DAILY PO Last administered on 03/27/18at 10:49; Start 02/22/18 at 09:00 Multi-Ingredient Ointment (Analgesic [place]) 1 sam PRN QID PRN TP MUSCLE PAIN; Start 02/22/18 at 05:00 Insulin Human Lispro (HumaLOG) TIDWMEALHC SQ Last administered on 03/27/18 19 :49; Start 02/22/18 at 08:00 Mirtazapine (Remeron) 7.5 mg QHS PO Last administered on 03/27/18at 19:44; Start 02/22/18 at 21:00 Risperidone (RisperDAL) 0.375 mg BID PO Last administered on 02/26/18at 11:50; Start 02/23/18 at 21:00; Stop 02/26/18 at 19:49; Status DC Olanzapine (ZyPREXA ZYDIS) 5 mg PRN Q2HR PRN PO PSYCHOSIS Last administered on 03/18/18at 07:53; Start 02/23/18 at 19:45 Divalproex Sodium (Depakote Sprinkles) 125 mg TID@0900,1300,1700 PO Last administered on 03/01/18at 17:39; Start 02/26/18 at 09:00; Stop 03/01/18 at 18:29 ; Status DC Risperidone (RisperDAL) 0.5 mg BID PO Last administered on 03/01/18at 10:17; Start 02/26/18 at 21:00; Stop 03/01/18 at 18:29; Status DC Divalproex Sodium (Depakote Sprinkles) 250 mg TID@0900,1300,1700 PO Last administered on 03/04/18at 17:59; Start 03/02/18 at 09:00; Stop 03/04/18 at 19:22 ; Status DC Risperidone (RisperDAL) 0.75 mg BID PO Last administered on 03/13/18at 07:42; Start 03/01/18 at 21:00; Stop 03/13/18 at 15:04; Status DC Divalproex Sodium (Depakote Er) 1,000 mg QHS PO Last administered on 03/06/18 19:17; Start 03/04/18 at 21:00; Stop 03/07/18 at 19:54; Status DC Divalproex Sodium (Depakote Er) 1,000 mg QHS PO Last administered on 03/14/18at 21:12; Start 03/07/18 at 21:00; Stop 03/15/18 at 18:49; Status DC Divalproex Sodium (Depakote Er) 250 mg QHS PO Last administered on 03/14/18 21: 12; Start 03/07/18 at 21:00; Stop 03/15/18 at 18:49; Status DC Alprazolam (Xanax) 0.25 mg QHS PO Last administered on 03/27/18 19:46; Start 03/13/18 at 21:00; Stop 03/27/18 at 23:00 Risperidone (RisperDAL) 0.75 mg HS PO Last administered on 03/14/18 21:12; Start 03/13/18 at 21:00; Stop 03/15/18 at 18:49; Status DC Oxcarbazepine (Trileptal) 150 mg BID PO Last administered on 03/27/18at 19:45; Start 03/18/18 at 21:00 Active Scripts Active Reported Novolog Flexpen (Insulin Aspart) 100 Unit/1 Ml Insuln.pen 2-10 Units SQ TIDWMEALHC Risperdal (Risperidone) 0.25 Mg Tablet 0.25 Mg BID Cymbalta (Duloxetine Hcl) 60 Mg Capsule.dr 60 Mg PO DAILY Famotidine 20 Mg Tablet 20 Mg PO BID Mag-Al Plus Xs Suspension (Mag Hydrox/Al Hydrox/Simeth) 30 Ml Oral.susp 15 Ml PO PRN AFTMEALHC PRN Celebrex (Celecoxib) 100 Mg Capsule 100 Mg PO BID Vitamin C (Ascorbate Calcium) 500 Mg Tablet 500 Mg PO DAILY Robitussin Cough-Chest Dm Liq (Guaifenesin/Dextromethorphan) 237 Ml Liquid 10 Ml PO PRN Q4HRS PRN Percocet 10-325 Mg Tablet (Oxycodone Hcl/Acetaminophen) 1 Each Tablet 1 Tab PO PRN Q4HRS PRN Percocet 10-325 Mg Tablet (Oxycodone Hcl/Acetaminophen) 1 Each Tablet 1 Tab PO BID Ondansetron Hcl 4 Mg Tablet 4 Mg PO PRN Q4HRS PRN Nystatin 15 Gm Powder 1 Sam TP PRN TID PRN Nitrostat (Nitroglycerin) 0.4 Mg Tab.subl 0.4 Mg SL PRN Q5MIN PRN MDD 3tabs Melatonin 5 Mg Tablet (Melatonin/Pyridoxine) 1 Each Tablet 6 Mg PO QHS Loperamide (Loperamide Hcl) 2 Mg Tablet 2 Mg PO PRN Q4HRS PRN MDD 16mg Keppra (Levetiracetam) 500 Mg Tablet 500 Mg PO BID Ferrous Sulfate 325 Mg Tablet 325 Mg PO DAILY Neurontin (Gabapentin) 300 Mg Capsule 300 Mg PO TID Voltaren (Diclofenac Sodium) 100 Gm Gel..gram. 4 Gm TP PRN QID PRN Budesonide 0.5 Mg/2 Ml Ampul.neb 0.5 Mg NEB PRN BID PRN Dicyclomine Hcl 10 Mg Capsule 10 Mg PO PRN Q8HRS PRN Artificial Tears Eye Drops (Dextran 70/Hypromellose) 15 Ml Drops 1 Drop OU TID PRN Anusol-Hc (Hydrocortisone Acetate) 25 Mg Supp.rect 25 Mg RC PRN Q12HR PRN Anusol-Hc (Hydrocortisone) 30 Gm Cream..g. 1 Sam RC PRN Q24HRS PRN Norvasc (Amlodipine Besylate) 10 Mg Tablet 10 Mg PO DAILY Alprazolam 0.5 Mg Tablet 0.5 Mg PO HS Tylenol (Acetaminophen) 325 Mg Tablet 650 Mg PO PRN Q6HRS PRN Albuterol Sulfate Neb Soln (Albuterol Sulfate) 2.5 Mg/3 Ml Vial.neb 2.5 Mg NEB PRN Q4HRS PRN Milk Of Magnesia (Magnesium Hydroxide) 400 Mg/5 Ml Oral.susp 2,400 Mg PO PRN QHS PRN Actos (Pioglitazone Hcl) 15 Mg Tablet 15 Mg PO [id number] I have reviewed the current psychotropics carefully including drug interactions. Risk benefit ratio favors no change other than as noted in my dictated progress note. Diagnosis: Problems: (1) Anxiety disorder (2) Impulse control disorder (3) Major depressive disorder, recurrent episode (4) Mild cognitive impairment BEA SAWANT MD Mar 27, 2018 21:03
--- NOTE | 2018-03-28 02:37 | PN ---
DATE: 03/25/2018 This is a late entry for 03/25/2018 covers elements not covered in my initial note. SUBJECTIVE: I met with the patient in the evening. Blood sugar was 318; otherwise, the patient is doing better, cognitively less confused. REVIEW OF SYSTEMS: Ambulation impaired, in wheelchair. No CV, , pulmonary, eye, ENT system symptoms on review. MENTAL STATUS EXAM: Oriented to herself and situation. Speech coherent, less pressured. Abstraction fair, computation impaired. Attention span short. Language function intact. Mood and affect still intermittently labile, but better. LABORATORY DATA: Reviewed. IMPRESSION: Unchanged from initial note, major depressive disorder, recurrent with psychotic features, bipolar 1 disorder, depressed with psychotic features in partial remission; cognitive disorder, unspecified. PLAN: Continue psychotropics from initial note. MAN Farrah SAWANT MD DR: MARK/daphne JOB#: [id number] / [id number]
[2018-03-28] MEDS: ACETAMINOPHEN 325 MG TABLET PO PRN (06:12)
[2018-03-28 06:24] VITALS: BP 153/77
[2018-03-28] MEDS: INSULIN LISPRO 300 UNITS/3 ML INSULN.PEN. SQ SCH ×4 (09:48→20:49)
[2018-03-28] MEDS: amLODIPine BESYLATE 10 MG TABLET PO SCH (09:49)
[2018-03-28] MEDS: levETIRAcetam 500 MG TABLET PO SCH ×2 (09:49→20:48)
[2018-03-28] MEDS: GABAPENTIN 300 MG CAPSULE. PO SCH ×2 (09:50→20:48)
[2018-03-28] MEDS: FAMOTIDINE 20 MG TABLET PO SCH (09:50)
[2018-03-28] MEDS: DULoxetine HCL 60 MG CAPSULE.DR PO SCH (09:50)
[2018-03-28] MEDS: PIOGLITAZONE 15 MG TABLET. PO SCH (09:50)
[2018-03-28] MEDS: ASCORBIC ACID 500 MG TABLET PO SCH (09:51)
[2018-03-28] MEDS: FERROUS SULFATE 325 MG TABLET. PO SCH (09:51)
[2018-03-28] MEDS: OXcarbazepine 150 MG TABLET. PO SCH ×2 (09:52→12:09)
[2018-03-28] MEDS: oxyCODONE/APAP 10/325 1 TAB TABLET PO SCH ×2 (09:53→20:50)
[2018-03-28] MEDS: BUDESONIDE 0.5 MG/2 ML NEBU NEB SCH ×2 (11:50→20:19)
--- NOTE | 2018-03-28 13:54 | PN ---
DATE: 03/26/2018 PSYCHIATRIC PROGRESS NOTE This is a late entry 03/26/2018, covers elements not covered in my initial note 03/26/2018. SUBJECTIVE: I met with the patient in the evening. Overall, the patient has been more cooperative, seems less confused. REVIEW OF SYSTEMS: No CV, , pulmonary, eye system symptoms on review. Reliability varies. Gait unsteady in wheelchair. MENTAL STATUS EXAM: Oriented to herself and situation. Speech coherent, less pressured. Abstraction fair, computation impaired, language function intact. Mood and affect remain somewhat anxious. LABORATORY DATA: Reviewed. IMPRESSION: Bipolar 1 disorder, depressed with psychotic features; major neurocognitive disorder, Alzheimer, vascular with delusion, depression; anxiety disorder, unspecified. PLAN: Continue psychotropics mentioned in my initial note, Cymbalta, melatonin, together with Trileptal and Zyprexa p.r.n. BEA SAWANT MD DR: MARK/daphne JOB#: [id number] / [id number]
--- NOTE | 2018-03-28 14:29 | PN ---
DATE: 03/27/2018 This is a late entry 03/27/2018 covers the elements not covered in my initial note. SUBJECTIVE: I met with the patient in the evening. The patient put herself on the floor earlier in the day after a conflict with another demented patient. This heightened the patient's anxiety, resulting in her putting herself on the floor. No injury noted. REVIEW OF SYSTEMS: No CV, , pulmonary, eye, ENT system symptoms on review. Reliability varies. Gait unsteady, in wheelchair. MENTAL STATUS EXAM: Oriented to herself and situation. Speech coherent, a little pressured at times. Abstraction fair, computation impaired, language function intact, attention span short. Mood and affect, lability despite the above is improved. LABORATORY DATA: Reviewed. IMPRESSION: Bipolar 1 disorder, mixed with psychotic features, in partial remission; cognitive disorder, unspecified. PLAN: Continue psychotropics mentioned in my initial note. Trileptal, Cymbalta, along with Xanax p.r.n., Remeron 7.5 mg at bedtime, Zyprexa p.r.n. MAN Farrah SAWANT MD DR: MARK/daphne JOB#: [id number] / [id number]
[2018-03-28 16:19] VITALS: BP 150/74
[2018-03-28] MEDS: MELATONIN 3 MG TABLET PO SCH (20:48)
[2018-03-28] MEDS: MIRTAZAPINE 7.5 MG TABLET. PO SCH (20:48)
--- NOTE | 2018-03-28 21:05 | PDOC ---
Exam Note: Neal Note: Please also refer to the separate dictated note~for this date of service dictated separately.~Patient seen individually. Discussed the patient with Nursing staff reviewed the chart.~Reviewed interim history and current functioning. Reviewed vital signs,~Labs/ Radiology~and current medications noted below. Continue current treatment with the changes noted in the dictated addendum note Assessment: Vital Signs: Vital Signs Date Time Temp Pulse Resp B/P (MAP) Pulse Ox O2 Delivery O2 Flow Rate FiO2 03/28/18 20:20 99 Room Air 03/28/18 16:19 98.3 78 18 150/74 (99) I&O Intake and Output 03/28/18 07:01 Intake Total 600 ml Balance 600 ml Intake Oral 600 ml Labs: Laboratory Tests Test 03/28/18 07:02 03/28/18 11:26 03/28/18 11:56 03/28/18 16:46 Glucose (Fingerstick) 224 mg/dL (70-99) H 240 mg/dL (70-99) H 240 mg/dL (70-99) H 337 mg/dL (70-99) H Test 03/28/18 19:22 Glucose (Fingerstick) 253 mg/dL (70-99) H Current Medications: Meds: Current Medications Acetaminophen (Tylenol) 1,000 mg 1X ONCE PO Last administered on 02/22/18at 03: 05; Start 02/22/18 at 03:30; Stop 02/22/18 at 03:31; Status DC Alprazolam (Xanax) 0.5 mg QHS PO Last administered on 03/11/18at 19:50; Start at 21:00; Stop 03/12/18 at 18:14; Status DC Duloxetine HCl (Cymbalta) 60 mg DAILY PO Last administered on 03/28/18at 09:50; Start 02/22/18 at 09:00 Melatonin 6 mg QHS PO Last administered on 03/28/18at 20:48; Start 02/22/18 at 21:00 Risperidone (RisperDAL) 0.25 mg BID PO Last administered on 02/23/18at 08:51; Start 02/22/18 at 09:00; Stop 02/23/18 at 13:23; Status DC Acetaminophen (Tylenol) 650 mg PRN Q6HRS PRN PO PAIN / TEMP Last administered on 03/28/18at 06:12; Start 02/22/18 at 05:00 Albuterol Sulfate (Ventolin) 2.5 mg PRN Q4HRS PRN NEB Dyspnea; Start 02/22/18 at 05:00 Diclofenac Sodium (Voltaren) 4 sam PRN QID PRN TP R Knee Pain; Start 02/22/18 at 05:00 Dicyclomine HCl (Bentyl) 10 mg PRN Q8HRS PRN PO Bowel Cramps; Start 02/22/18 at 05:00 Ferrous Sulfate (Feosol) 325 mg DAILY PO Last administered on 03/28/18at 09:51; Start 02/22/18 at 09:00 Gabapentin (Neurontin) 300 mg BID PO Last administered on 03/28/18at 20:48; Start 02/22/18 at 09:00 Hydrocortisone (Proctosol-Hc) 1 sam PRN Q24HRS PRN RC Hemorrhoids; Start at 05:00 Insulin Aspart (NovoLOG) BS 200-2,50= 2 un... TIDWMEALHC SQ ; Start 02/22/18 at 08:00; Stop 02/22/18 at 08:01; Status DC Al Hydroxide/Mg Hydroxide (Mylanta Plus Xs) 15 ml PRN AFTMEALHC PRN PO DYSPEPSIA Last administered on 03/20/18at 04:14; Start 02/22/18 at 05:00 Magnesium Hydroxide (Milk Of Magnesia) 2,400 mg PRN QHS PRN PO CONSTIPATION Last administered on 03/20/18at 08:23; Start 02/22/18 at 05:00 Nitroglycerin (Nitrostat) 0.4 mg PRN Q5MIN PRN SL CHEST PAIN; Start 02/22/18 at 05:00 Nystatin (Nystop) 1 sam PRN TID PRN TP REDNESS; Start 02/22/18 at 05:00 Oxycodone/ Acetaminophen (Percocet 10/325) 1 tab BID PO Last administered on at 20:50; Start 02/22/18 at 09:00 Oxycodone/ Acetaminophen (Percocet 10/325) 1 tab PRN Q4HRS PRN PO PAIN Last administered on 03/17/18 17:39; Start 02/22/18 at 05:00 Amlodipine Besylate (Norvasc) 10 mg DAILY PO Last administered on 03/28/18 09: 49; Start 02/22/18 at 09:00 Ascorbic Acid (Vitamin C) 500 mg DAILY PO Last administered on 03/28/18 09:51 ; Start 02/22/18 at 09:00 Budesonide (Pulmicort) 0.5 mg RTBID NEB Last administered on 03/28/18 20:19; Start 02/22/18 at 08:00 Celecoxib (CeleBREX) 100 mg BID PO Last administered on 03/04/18 07:58; Start 02/22/18 at 09:00; Stop 03/04/18 at 17:39; Status DC Artificial Tears (Artificial Tears) 1 drop TID PRN PRN OU DRY EYE; Start at 05:30 Famotidine (Pepcid) 20 mg DAILY PO Last administered on 03/28/18 09:50; Start 02/22/18 at 09:00 Guaifenesin (Robitussin Dm) 10 ml PRN Q4HRS PRN PO COUGH; Start 02/22/18 at 05: 30 Hydrocortisone Acetate (Anucort-Hc) [address] RECTAL PAIN; Start 02/22/18 at 05:30 Levetiracetam (Keppra) 500 mg BID PO Last administered on 03/28/18 20:48; Start 02/22/18 at 09:00 Loperamide HCl (Imodium) 2 mg PRN Q4HRS PRN PO DIARRHEA; Start 02/22/18 at 05: 30 Ondansetron HCl (Zofran Odt) 4 mg PRN Q4HRS PRN PO NAUSEA/VOMITING; Start 02/22 at 05:30 Pioglitazone HCl (Actos) 15 mg DAILY PO Last administered on 03/28/18 09:50; Start 02/22/18 at 09:00 Multi-Ingredient Ointment (Analgesic [place]) 1 sam PRN QID PRN TP MUSCLE PAIN; Start 02/22/18 at 05:00 Insulin Human Lispro (HumaLOG) TIDWMEALHC SQ Last administered on 03/28/18 16 :59; Start 02/22/18 at 08:00 Mirtazapine (Remeron) 7.5 mg QHS PO Last administered on 03/28/18 20:48; Start 02/22/18 at 21:00 Risperidone (RisperDAL) 0.375 mg BID PO Last administered on 02/26/18 11:50; Start 02/23/18 at 21:00; Stop 02/26/18 at 19:49; Status DC Olanzapine (ZyPREXA ZYDIS) 5 mg PRN Q2HR PRN PO PSYCHOSIS Last administered on 03/18/18 07:53; Start 02/23/18 at 19:45 Divalproex Sodium (Depakote Sprinkles) 125 mg TID@0900,1300,1700 PO Last administered on 03/01/18 17:39; Start 02/26/18 at 09:00; Stop 03/01/18 at 18:29 ; Status DC Risperidone (RisperDAL) 0.5 mg BID PO Last administered on 03/01/18 10:17; Start 02/26/18 at 21:00; Stop 03/01/18 at 18:29; Status DC Divalproex Sodium (Depakote Sprinkles) 250 mg TID@0900,1300,1700 PO Last administered on 03/04/18 17:59; Start 03/02/18 at 09:00; Stop 03/04/18 at 19:22 ; Status DC Risperidone (RisperDAL) 0.75 mg BID PO Last administered on 03/13/18 07:42; Start 03/01/18 at 21:00; Stop 03/13/18 at 15:04; Status DC Divalproex Sodium (Depakote Er) 1,000 mg QHS PO Last administered on 03/06/18 19:17; Start 03/04/18 at 21:00; Stop 03/07/18 at 19:54; Status DC Divalproex Sodium (Depakote Er) 1,000 mg QHS PO Last administered on 03/14/18 21:12; Start 03/07/18 at 21:00; Stop 03/15/18 at 18:49; Status DC Divalproex Sodium (Depakote Er) 250 mg QHS PO Last administered on 03/14/18 21: 12; Start 03/07/18 at 21:00; Stop 03/15/18 at 18:49; Status DC Alprazolam (Xanax) 0.25 mg QHS PO Last administered on 03/27/18at 19:46; Start 03/13/18 at 21:00; Stop 03/27/18 at 23:00; Status DC Risperidone (RisperDAL) 0.75 mg HS PO Last administered on 03/14/18at 21:12; Start 03/13/18 at 21:00; Stop 03/15/18 at 18:49; Status DC Oxcarbazepine (Trileptal) 150 mg BID PO Last administered on 03/27/18at 19:45; Start 03/18/18 at 21:00; Stop 03/28/18 at 01:05; Status DC Oxcarbazepine (Trileptal) 150 mg BID@0900,1300 PO Last administered on at 12:09; Start 03/28/18 at 09:00 Active Scripts Active Reported Novolog Flexpen (Insulin Aspart) 100 Unit/1 Ml Insuln.pen 2-10 Units SQ TIDWMEALHC Risperdal (Risperidone) 0.25 Mg Tablet 0.25 Mg BID Cymbalta (Duloxetine Hcl) 60 Mg Capsule.dr 60 Mg PO DAILY Famotidine 20 Mg Tablet 20 Mg PO BID Mag-Al Plus Xs Suspension (Mag Hydrox/Al Hydrox/Simeth) 30 Ml Oral.susp 15 Ml PO PRN AFTMEALHC PRN Celebrex (Celecoxib) 100 Mg Capsule 100 Mg PO BID Vitamin C (Ascorbate Calcium) 500 Mg Tablet 500 Mg PO DAILY Robitussin Cough-Chest Dm Liq (Guaifenesin/Dextromethorphan) 237 Ml Liquid 10 Ml PO PRN Q4HRS PRN Percocet 10-325 Mg Tablet (Oxycodone Hcl/Acetaminophen) 1 Each Tablet 1 Tab PO PRN Q4HRS PRN Percocet 10-325 Mg Tablet (Oxycodone Hcl/Acetaminophen) 1 Each Tablet 1 Tab PO BID Ondansetron Hcl 4 Mg Tablet 4 Mg PO PRN Q4HRS PRN Nystatin 15 Gm Powder 1 Sam TP PRN TID PRN Nitrostat (Nitroglycerin) 0.4 Mg Tab.subl 0.4 Mg SL PRN Q5MIN PRN MDD 3tabs Melatonin 5 Mg Tablet (Melatonin/Pyridoxine) 1 Each Tablet 6 Mg PO QHS Loperamide (Loperamide Hcl) 2 Mg Tablet 2 Mg PO PRN Q4HRS PRN MDD 16mg Keppra (Levetiracetam) 500 Mg Tablet 500 Mg PO BID Ferrous Sulfate 325 Mg Tablet 325 Mg PO DAILY Neurontin (Gabapentin) 300 Mg Capsule 300 Mg PO TID Voltaren (Diclofenac Sodium) 100 Gm Gel..gram. 4 Gm TP PRN QID PRN Budesonide 0.5 Mg/2 Ml Ampul.neb 0.5 Mg NEB PRN BID PRN Dicyclomine Hcl 10 Mg Capsule 10 Mg PO PRN Q8HRS PRN Artificial Tears Eye Drops (Dextran 70/Hypromellose) 15 Ml Drops 1 Drop OU TID PRN Anusol-Hc (Hydrocortisone Acetate) 25 Mg Supp.rect 25 Mg RC PRN Q12HR PRN Anusol-Hc (Hydrocortisone) 30 Gm Cream..g. 1 Sam RC PRN Q24HRS PRN Norvasc (Amlodipine Besylate) 10 Mg Tablet 10 Mg PO DAILY Alprazolam 0.5 Mg Tablet 0.5 Mg PO HS Tylenol (Acetaminophen) 325 Mg Tablet 650 Mg PO PRN Q6HRS PRN Albuterol Sulfate Neb Soln (Albuterol Sulfate) 2.5 Mg/3 Ml Vial.neb 2.5 Mg NEB PRN Q4HRS PRN Milk Of Magnesia (Magnesium Hydroxide) 400 Mg/5 Ml Oral.susp 2,400 Mg PO PRN QHS PRN Actos (Pioglitazone Hcl) 15 Mg Tablet 15 Mg PO [id number] I have reviewed the current psychotropics carefully including drug interactions. Risk benefit ratio favors no change other than as noted in my dictated progress note. Diagnosis: Problems: (1) Anxiety disorder (2) Impulse control disorder (3) Major depressive disorder, recurrent episode (4) Mild cognitive impairment BEA SAWANT MD Mar 28, 2018 21:05
[2018-03-29 06:32] VITALS: BP 137/60
[2018-03-29] MEDS: INSULIN LISPRO 300 UNITS/3 ML INSULN.PEN. SQ SCH ×4 (08:00→19:45)
[2018-03-29] MEDS: FAMOTIDINE 20 MG TABLET PO SCH (09:28)
[2018-03-29] MEDS: levETIRAcetam 500 MG TABLET PO SCH ×2 (09:28→19:43)
[2018-03-29] MEDS: OXcarbazepine 150 MG TABLET. PO SCH ×2 (09:28→13:59)
[2018-03-29] MEDS: ASCORBIC ACID 500 MG TABLET PO SCH (09:28)
[2018-03-29] MEDS: GABAPENTIN 300 MG CAPSULE. PO SCH ×2 (09:28→19:43)
[2018-03-29] MEDS: PIOGLITAZONE 15 MG TABLET. PO SCH (09:28)
[2018-03-29] MEDS: FERROUS SULFATE 325 MG TABLET. PO SCH (09:28)
[2018-03-29] MEDS: amLODIPine BESYLATE 10 MG TABLET PO SCH (09:28)
[2018-03-29] MEDS: DULoxetine HCL 60 MG CAPSULE.DR PO SCH (09:28)
[2018-03-29] MEDS: oxyCODONE/APAP 10/325 1 TAB TABLET PO SCH ×2 (09:29→19:44)
[2018-03-29] MEDS: BUDESONIDE 0.5 MG/2 ML NEBU NEB SCH ×2 (09:49→21:04)
[2018-03-29 15:53] VITALS: BP 148/85
[2018-03-29] MEDS: MELATONIN 3 MG TABLET PO SCH (19:42)
[2018-03-29] MEDS: MIRTAZAPINE 7.5 MG TABLET. PO SCH (19:43)
--- NOTE | 2018-03-29 21:03 | PDOC ---
Exam Note: Neal Note: Please also refer to the separate dictated note~for this date of service dictated separately.~Patient seen individually. Discussed the patient with Nursing staff reviewed the chart.~Reviewed interim history and current functioning. Reviewed vital signs,~Labs/ Radiology~and current medications noted below. Continue current treatment with the changes noted in the dictated addendum note Assessment: Vital Signs: Vital Signs Date Time Temp Pulse Resp B/P (MAP) Pulse Ox O2 Delivery O2 Flow Rate FiO2 03/29/18 15:53 97.9 75 22 148/85 (106) 100 03/29/18 09:50 Room Air I&O Intake and Output 03/29/18 07:00 Intake Total 840 ml Balance 840 ml Intake Oral 840 ml Labs: Laboratory Tests Test 03/29/18 07:48 03/29/18 11:40 03/29/18 17:03 03/29/18 19:04 Glucose (Fingerstick) 107 mg/dL (70-99) H 128 mg/dL (70-99) H 254 mg/dL (70-99) H 253 mg/dL (70-99) H Current Medications: Meds: Current Medications Acetaminophen (Tylenol) 1,000 mg 1X ONCE PO Last administered on 02/22/18at 03: 05; Start 02/22/18 at 03:30; Stop 02/22/18 at 03:31; Status DC Alprazolam (Xanax) 0.5 mg QHS PO Last administered on 03/11/18at 19:50; Start at 21:00; Stop 03/12/18 at 18:14; Status DC Duloxetine HCl (Cymbalta) 60 mg DAILY PO Last administered on 03/29/18at 09:28; Start 02/22/18 at 09:00 Melatonin 6 mg QHS PO Last administered on 03/29/18at 19:42; Start 02/22/18 at 21:00 Risperidone (RisperDAL) 0.25 mg BID PO Last administered on 02/23/18at 08:51; Start 02/22/18 at 09:00; Stop 02/23/18 at 13:23; Status DC Acetaminophen (Tylenol) 650 mg PRN Q6HRS PRN PO PAIN / TEMP Last administered on 03/28/18at 06:12; Start 02/22/18 at 05:00 Albuterol Sulfate (Ventolin) 2.5 mg PRN Q4HRS PRN NEB Dyspnea; Start 02/22/18 at 05:00 Diclofenac Sodium (Voltaren) 4 sam PRN QID PRN TP R Knee Pain; Start 02/22/18 at 05:00 Dicyclomine HCl (Bentyl) 10 mg PRN Q8HRS PRN PO Bowel Cramps; Start 02/22/18 at 05:00 Ferrous Sulfate (Feosol) 325 mg DAILY PO Last administered on 03/29/18at 09:28; Start 02/22/18 at 09:00 Gabapentin (Neurontin) 300 mg BID PO Last administered on 03/29/18at 19:43; Start 02/22/18 at 09:00 Hydrocortisone (Proctosol-Hc) 1 sam PRN Q24HRS PRN RC Hemorrhoids; Start at 05:00 Insulin Aspart (NovoLOG) BS 200-2,50= 2 un... TIDWMEALHC SQ ; Start 02/22/18 at 08:00; Stop 02/22/18 at 08:01; Status DC Al Hydroxide/Mg Hydroxide (Mylanta Plus Xs) 15 ml PRN AFTMEALHC PRN PO DYSPEPSIA Last administered on 03/20/18at 04:14; Start 02/22/18 at 05:00 Magnesium Hydroxide (Milk Of Magnesia) 2,400 mg PRN QHS PRN PO CONSTIPATION Last administered on 03/20/18at 08:23; Start 02/22/18 at 05:00 Nitroglycerin (Nitrostat) 0.4 mg PRN Q5MIN PRN SL CHEST PAIN; Start 02/22/18 at 05:00 Nystatin (Nystop) 1 sam PRN TID PRN TP REDNESS; Start 02/22/18 at 05:00 Oxycodone/ Acetaminophen (Percocet 10/325) 1 tab BID PO Last administered on at 19:44; Start 02/22/18 at 09:00 Oxycodone/ Acetaminophen (Percocet 10/325) 1 tab PRN Q4HRS PRN PO PAIN Last administered on 03/17/18at 17:39; Start 02/22/18 at 05:00 Amlodipine Besylate (Norvasc) 10 mg DAILY PO Last administered on 03/29/18 09: 28; Start 02/22/18 at 09:00 Ascorbic Acid (Vitamin C) 500 mg DAILY PO Last administered on 03/29/18 09:28 ; Start 02/22/18 at 09:00 Budesonide (Pulmicort) 0.5 mg RTBID NEB Last administered on 03/29/18 09:49; Start 02/22/18 at 08:00 Celecoxib (CeleBREX) 100 mg BID PO Last administered on 03/04/18 07:58; Start 02/22/18 at 09:00; Stop 03/04/18 at 17:39; Status DC Artificial Tears (Artificial Tears) 1 drop TID PRN PRN OU DRY EYE; Start at 05:30 Famotidine (Pepcid) 20 mg DAILY PO Last administered on 03/29/18 09:28; Start 02/22/18 at 09:00 Guaifenesin (Robitussin Dm) 10 ml PRN Q4HRS PRN PO COUGH; Start 02/22/18 at 05: 30 Hydrocortisone Acetate (Anucort-Hc) 25 mg PRN Q12HR PRN MT RECTAL PAIN; Start 02/22/18 at 05:30 Levetiracetam (Keppra) 500 mg BID PO Last administered on 03/29/18 19:43; Start 02/22/18 at 09:00 Loperamide HCl (Imodium) 2 mg PRN Q4HRS PRN PO DIARRHEA; Start 02/22/18 at 05: 30 Ondansetron HCl (Zofran Odt) 4 mg PRN Q4HRS PRN PO NAUSEA/VOMITING; Start 02/22 at 05:30 Pioglitazone HCl (Actos) 15 mg DAILY PO Last administered on 03/29/18 09:28; Start 02/22/18 at 09:00 Multi-Ingredient Ointment (Analgesic [place]) 1 sam PRN QID PRN TP MUSCLE PAIN; Start 02/22/18 at 05:00 Insulin Human Lispro (HumaLOG) TIDWMEALHC SQ Last administered on 03/29/18 19 :45; Start 02/22/18 at 08:00 Mirtazapine (Remeron) 7.5 mg QHS PO Last administered on 03/29/18at 19:43; Start 02/22/18 at 21:00 Risperidone (RisperDAL) 0.375 mg BID PO Last administered on 02/26/18at 11:50; Start 02/23/18 at 21:00; Stop 02/26/18 at 19:49; Status DC Olanzapine (ZyPREXA ZYDIS) 5 mg PRN Q2HR PRN PO PSYCHOSIS Last administered on 03/18/18at 07:53; Start 02/23/18 at 19:45 Divalproex Sodium (Depakote Sprinkles) 125 mg TID@0900,1300,1700 PO Last administered on 03/01/18at 17:39; Start 02/26/18 at 09:00; Stop 03/01/18 at 18:29 ; Status DC Risperidone (RisperDAL) 0.5 mg BID PO Last administered on 03/01/18at 10:17; Start 02/26/18 at 21:00; Stop 03/01/18 at 18:29; Status DC Divalproex Sodium (Depakote Sprinkles) 250 mg TID@0900,1300,1700 PO Last administered on 03/04/18 17:59; Start 03/02/18 at 09:00; Stop 03/04/18 at 19:22 ; Status DC Risperidone (RisperDAL) 0.75 mg BID PO Last administered on 03/13/18 07:42; Start 03/01/18 at 21:00; Stop 03/13/18 at 15:04; Status DC Divalproex Sodium (Depakote Er) 1,000 mg QHS PO Last administered on 03/06/18at 19:17; Start 03/04/18 at 21:00; Stop 03/07/18 at 19:54; Status DC Divalproex Sodium (Depakote Er) 1,000 mg QHS PO Last administered on 03/14/18 21:12; Start 03/07/18 at 21:00; Stop 03/15/18 at 18:49; Status DC Divalproex Sodium (Depakote Er) 250 mg QHS PO Last administered on 03/14/18 21: 12; Start 03/07/18 at 21:00; Stop 03/15/18 at 18:49; Status DC Alprazolam (Xanax) 0.25 mg QHS PO Last administered on 03/27/18at 19:46; Start 03/13/18 at 21:00; Stop 03/27/18 at 23:00; Status DC Risperidone (RisperDAL) 0.75 mg HS PO Last administered on 03/14/18at 21:12; Start 03/13/18 at 21:00; Stop 03/15/18 at 18:49; Status DC Oxcarbazepine (Trileptal) 150 mg BID PO Last administered on 03/27/18at 19:45; Start 03/18/18 at 21:00; Stop 03/28/18 at 01:05; Status DC Oxcarbazepine (Trileptal) 150 mg BID@0900,1300 PO Last administered on at 13:59; Start 03/28/18 at 09:00 Active Scripts Active Reported Novolog Flexpen (Insulin Aspart) 100 Unit/1 Ml Insuln.pen 2-10 Units SQ TIDWMEALHC Risperdal (Risperidone) 0.25 Mg Tablet 0.25 Mg BID Cymbalta (Duloxetine Hcl) 60 Mg Capsule.dr 60 Mg PO DAILY Famotidine 20 Mg Tablet 20 Mg PO BID Mag-Al Plus Xs Suspension (Mag Hydrox/Al Hydrox/Simeth) 30 Ml Oral.susp 15 Ml PO PRN AFTMEALHC PRN Celebrex (Celecoxib) 100 Mg Capsule 100 Mg PO BID Vitamin C (Ascorbate Calcium) 500 Mg Tablet 500 Mg PO DAILY Robitussin Cough-Chest Dm Liq (Guaifenesin/Dextromethorphan) 237 Ml Liquid 10 Ml PO PRN Q4HRS PRN Percocet 10-325 Mg Tablet (Oxycodone Hcl/Acetaminophen) 1 Each Tablet 1 Tab PO PRN Q4HRS PRN Percocet 10-325 Mg Tablet (Oxycodone Hcl/Acetaminophen) 1 Each Tablet 1 Tab PO BID Ondansetron Hcl 4 Mg Tablet 4 Mg PO PRN Q4HRS PRN Nystatin 15 Gm Powder 1 Sam TP PRN TID PRN Nitrostat (Nitroglycerin) 0.4 Mg Tab.subl 0.4 Mg SL PRN Q5MIN PRN MDD 3tabs Melatonin 5 Mg Tablet (Melatonin/Pyridoxine) 1 Each Tablet 6 Mg PO QHS Loperamide (Loperamide Hcl) 2 Mg Tablet 2 Mg PO PRN Q4HRS PRN MDD 16mg Keppra (Levetiracetam) 500 Mg Tablet 500 Mg PO BID Ferrous Sulfate 325 Mg Tablet 325 Mg PO DAILY Neurontin (Gabapentin) 300 Mg Capsule 300 Mg PO TID Voltaren (Diclofenac Sodium) 100 Gm Gel..gram. 4 Gm TP PRN QID PRN Budesonide 0.5 Mg/2 Ml Ampul.neb 0.5 Mg NEB PRN BID PRN Dicyclomine Hcl 10 Mg Capsule 10 Mg PO PRN Q8HRS PRN Artificial Tears Eye Drops (Dextran 70/Hypromellose) 15 Ml Drops 1 Drop OU TID PRN Anusol-Hc (Hydrocortisone Acetate) 25 Mg Supp.rect 25 Mg RC PRN Q12HR PRN Anusol-Hc (Hydrocortisone) 30 Gm Cream..g. 1 Sam RC PRN Q24HRS PRN Norvasc (Amlodipine Besylate) 10 Mg Tablet 10 Mg PO DAILY Alprazolam 0.5 Mg Tablet 0.5 Mg PO HS Tylenol (Acetaminophen) 325 Mg Tablet 650 Mg PO PRN Q6HRS PRN Albuterol Sulfate Neb Soln (Albuterol Sulfate) 2.5 Mg/3 Ml Vial.neb 2.5 Mg NEB PRN Q4HRS PRN Milk Of Magnesia (Magnesium Hydroxide) 400 Mg/5 Ml Oral.susp 2,400 Mg PO PRN QHS PRN Actos (Pioglitazone Hcl) 15 Mg Tablet 15 Mg PO [id number] I have reviewed the current psychotropics carefully including drug interactions. Risk benefit ratio favors no change other than as noted in my dictated progress note. Diagnosis: Problems: (1) Anxiety disorder (2) Impulse control disorder (3) Major depressive disorder, recurrent episode (4) Mild cognitive impairment BEA SAWANT MD Mar 29, 2018 21:03
--- NOTE | 2018-03-29 21:04 | PN ---
DATE: 03/28/2018 PSYCHIATRIC PROGRESS NOTE This is a late entry 03/28/2018, covers elements not covered in my initial note. SUBJECTIVE: I met with the patient in the evening. 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 She thought one of the other patients was her . REVIEW OF SYSTEMS: Ambulation impaired, in wheelchair. No CV, , pulmonary, eye, ENT system symptoms on review. She complains of feeling cold, had a blanket wrapped around her. MENTAL STATUS EXAM: Oriented to herself and situation. Speech has some latency, coherent. Abstraction fair, computation impaired, language function intact, attention span short. Mood and affect showing improvement, less psychotic, less confused. LABORATORY DATA: Reviewed. IMPRESSION: Unchanged from initial note. PLAN: Continue current psychotropics from initial note. MAN Farrah SAWANT MD DR: MARK/daphne JOB#: [id number] / [id number]
[2018-03-30 06:06] VITALS: BP 148/67
[2018-03-30] MEDS: INSULIN LISPRO 300 UNITS/3 ML INSULN.PEN. SQ SCH ×4 (09:00→19:51)
[2018-03-30] MEDS: BUDESONIDE 0.5 MG/2 ML NEBU NEB SCH ×2 (09:33→20:15)
[2018-03-30] MEDS: amLODIPine BESYLATE 10 MG TABLET PO SCH (11:33)
[2018-03-30] MEDS: GABAPENTIN 300 MG CAPSULE. PO SCH ×2 (11:33→19:45)
[2018-03-30] MEDS: FERROUS SULFATE 325 MG TABLET. PO SCH (11:33)
[2018-03-30] MEDS: levETIRAcetam 500 MG TABLET PO SCH ×2 (11:34→19:44)
[2018-03-30] MEDS: ASCORBIC ACID 500 MG TABLET PO SCH (11:34)
[2018-03-30] MEDS: FAMOTIDINE 20 MG TABLET PO SCH (11:34)
[2018-03-30] MEDS: OXcarbazepine 150 MG TABLET. PO SCH ×2 (11:34→14:03)
[2018-03-30] MEDS: DULoxetine HCL 60 MG CAPSULE.DR PO SCH (11:34)
[2018-03-30] MEDS: PIOGLITAZONE 15 MG TABLET. PO SCH (11:34)
[2018-03-30] MEDS: oxyCODONE/APAP 10/325 1 TAB TABLET PO SCH ×2 (11:36→19:50)
--- NOTE | 2018-03-30 13:55 | PN ---
DATE: 03/29/2018 PSYCHIATRIC PROGRESS NOTE This is a late entry 03/29/2018, covers elements not covered in my initial note. SUBJECTIVE: I met with the patient in the evening. The patient has been more alert, still oriented to herself, attempting to walk with supervision quite an improvement. Subjectively, she states her mind feels "much clearer." REVIEW OF SYSTEMS: Ambulation impaired, in wheelchair. No CV, , pulmonary, eye, ENT system symptoms on review. MENTAL STATUS EXAM: Oriented to herself and situation. Speech coherent, less pressured. Abstraction fair, computation impaired, language function intact, attention span short. Mood and affect appears improved, brighter, more verbal appropriate. LABORATORY DATA: Reviewed. IMPRESSION: Major depressive disorder with psychotic features in partial remission: Major neurocognitive disorder, Alzheimer, vascular with depression, delusion. PLAN: Continue psychotropics as mentioned in my initial note. MAN Farrah SAWANT MD DR: MARK/daphne JOB#: [id number] / [id number]
[2018-03-30 17:10] VITALS: BP 139/79
[2018-03-30] MEDS: MIRTAZAPINE 7.5 MG TABLET. PO SCH (19:44)
[2018-03-30] MEDS: MELATONIN 3 MG TABLET PO SCH (19:44)
--- NOTE | 2018-03-30 20:52 | PDOC ---
Exam Note: Neal Note: Please also refer to the separate dictated note~for this date of service dictated separately.~Patient seen individually. Discussed the patient with Nursing staff reviewed the chart.~Reviewed interim history and current functioning. Reviewed vital signs,~Labs/ Radiology~and current medications noted below. Continue current treatment with the changes noted in the dictated addendum note Assessment: Vital Signs: Vital Signs Date Time Temp Pulse Resp B/P (MAP) Pulse Ox O2 Delivery O2 Flow Rate FiO2 03/30/18 20:15 100 Room Air 03/30/18 17:10 97.8 79 18 139/79 (99) I&O Intake and Output 03/30/18 07:00 Intake Total 560 ml Balance 560 ml Intake Oral 560 ml # Voids 1 # Bowel Movements 1 Labs: Laboratory Tests Test 03/30/18 07:15 03/30/18 11:26 03/30/18 18:01 03/30/18 19:05 Glucose (Fingerstick) 113 mg/dL (70-99) H 142 mg/dL (70-99) H 321 mg/dL (70-99) H 287 mg/dL (70-99) H Current Medications: Meds: Current Medications Acetaminophen (Tylenol) 1,000 mg 1X ONCE PO Last administered on 02/22/18at 03: 05; Start 02/22/18 at 03:30; Stop 02/22/18 at 03:31; Status DC Alprazolam (Xanax) 0.5 mg QHS PO Last administered on 03/11/18at 19:50; Start at 21:00; Stop 03/12/18 at 18:14; Status DC Duloxetine HCl (Cymbalta) 60 mg DAILY PO Last administered on 03/30/18at 11:34; Start 02/22/18 at 09:00 Melatonin 6 mg QHS PO Last administered on 03/30/18at 19:44; Start 02/22/18 at 21:00 Risperidone (RisperDAL) 0.25 mg BID PO Last administered on 02/23/18at 08:51; Start 02/22/18 at 09:00; Stop 02/23/18 at 13:23; Status DC Acetaminophen (Tylenol) 650 mg PRN Q6HRS PRN PO PAIN / TEMP Last administered on 03/28/18at 06:12; Start 02/22/18 at 05:00 Albuterol Sulfate (Ventolin) 2.5 mg PRN Q4HRS PRN NEB Dyspnea; Start 02/22/18 at 05:00 Diclofenac Sodium (Voltaren) 4 sam PRN QID PRN TP R Knee Pain; Start 02/22/18 at 05:00 Dicyclomine HCl (Bentyl) 10 mg PRN Q8HRS PRN PO Bowel Cramps; Start 02/22/18 at 05:00 Ferrous Sulfate (Feosol) 325 mg DAILY PO Last administered on 03/30/18 11:33; Start 02/22/18 at 09:00 Gabapentin (Neurontin) 300 mg BID PO Last administered on 03/30/18 19:45; Start 02/22/18 at 09:00 Hydrocortisone (Proctosol-Hc) 1 sam PRN Q24HRS PRN RC Hemorrhoids; Start at 05:00 Insulin Aspart (NovoLOG) BS 200-2,50= 2 un... TIDWMEALHC SQ ; Start 02/22/18 at 08:00; Stop 02/22/18 at 08:01; Status DC Al Hydroxide/Mg Hydroxide (Mylanta Plus Xs) 15 ml PRN AFTMEALHC PRN PO DYSPEPSIA Last administered on 03/20/18at 04:14; Start 02/22/18 at 05:00 Magnesium Hydroxide (Milk Of Magnesia) 2,400 mg PRN QHS PRN PO CONSTIPATION Last administered on 03/20/18 08:23; Start 02/22/18 at 05:00 Nitroglycerin (Nitrostat) 0.4 mg PRN Q5MIN PRN SL CHEST PAIN; Start 02/22/18 at 05:00 Nystatin (Nystop) 1 sam PRN TID PRN TP REDNESS; Start 02/22/18 at 05:00 Oxycodone/ Acetaminophen (Percocet 10/325) 1 tab BID PO Last administered on at 19:50; Start 02/22/18 at 09:00 Oxycodone/ Acetaminophen (Percocet 10/325) 1 tab PRN Q4HRS PRN PO PAIN Last administered on 03/17/18 17:39; Start 02/22/18 at 05:00 Amlodipine Besylate (Norvasc) 10 mg DAILY PO Last administered on 03/30/18 11: 33; Start 02/22/18 at 09:00 Ascorbic Acid (Vitamin C) 500 mg DAILY PO Last administered on 03/30/18 11:34 ; Start 02/22/18 at 09:00 Budesonide (Pulmicort) 0.5 mg RTBID NEB Last administered on 03/30/18at 20:15; Start 02/22/18 at 08:00 Celecoxib (CeleBREX) 100 mg BID PO Last administered on 03/04/18 07:58; Start 02/22/18 at 09:00; Stop 03/04/18 at 17:39; Status DC Artificial Tears (Artificial Tears) 1 drop TID PRN PRN OU DRY EYE; Start at 05:30 Famotidine (Pepcid) 20 mg DAILY PO Last administered on 03/30/18 11:34; Start 02/22/18 at 09:00 Guaifenesin (Robitussin Dm) 10 ml PRN Q4HRS PRN PO COUGH; Start 02/22/18 at 05: 30 Hydrocortisone Acetate (Anucort-Hc) [address] RECTAL PAIN; Start 02/22/18 at 05:30 Levetiracetam (Keppra) 500 mg BID PO Last administered on 03/30/18at 19:44; Start 02/22/18 at 09:00 Loperamide HCl (Imodium) 2 mg PRN Q4HRS PRN PO DIARRHEA; Start 02/22/18 at 05: 30 Ondansetron HCl (Zofran Odt) 4 mg PRN Q4HRS PRN PO NAUSEA/VOMITING; Start 02/22 at 05:30 Pioglitazone HCl (Actos) 15 mg DAILY PO Last administered on 03/30/18 11:34; Start 02/22/18 at 09:00 Multi-Ingredient Ointment (Analgesic [place]) 1 sam PRN QID PRN TP MUSCLE PAIN; Start 02/22/18 at 05:00 Insulin Human Lispro (HumaLOG) TIDWMEALHC SQ Last administered on 03/30/18at 19 :51; Start 02/22/18 at 08:00 Mirtazapine (Remeron) 7.5 mg QHS PO Last administered on 03/30/18 19:44; Start 02/22/18 at 21:00 Risperidone (RisperDAL) 0.375 mg BID PO Last administered on 02/26/18at 11:50; Start 02/23/18 at 21:00; Stop 02/26/18 at 19:49; Status DC Olanzapine (ZyPREXA ZYDIS) 5 mg PRN Q2HR PRN PO PSYCHOSIS Last administered on 03/18/18 07:53; Start 02/23/18 at 19:45 Divalproex Sodium (Depakote Sprinkles) 125 mg TID@0900,1300,1700 PO Last administered on 03/01/18at 17:39; Start 02/26/18 at 09:00; Stop 03/01/18 at 18:29 ; Status DC Risperidone (RisperDAL) 0.5 mg BID PO Last administered on 03/01/18 10:17; Start 02/26/18 at 21:00; Stop 03/01/18 at 18:29; Status DC Divalproex Sodium (Depakote Sprinkles) 250 mg TID@0900,1300,1700 PO Last administered on 03/04/18 17:59; Start 03/02/18 at 09:00; Stop 03/04/18 at 19:22 ; Status DC Risperidone (RisperDAL) 0.75 mg BID PO Last administered on 03/13/18 07:42; Start 03/01/18 at 21:00; Stop 03/13/18 at 15:04; Status DC Divalproex Sodium (Depakote Er) 1,000 mg QHS PO Last administered on 03/06/18 19:17; Start 03/04/18 at 21:00; Stop 03/07/18 at 19:54; Status DC Divalproex Sodium (Depakote Er) 1,000 mg QHS PO Last administered on 03/14/18 21:12; Start 03/07/18 at 21:00; Stop 03/15/18 at 18:49; Status DC Divalproex Sodium (Depakote Er) 250 mg QHS PO Last administered on 03/14/18 21: 12; Start 03/07/18 at 21:00; Stop 03/15/18 at 18:49; Status DC Alprazolam (Xanax) 0.25 mg QHS PO Last administered on 03/27/18at 19:46; Start 03/13/18 at 21:00; Stop 03/27/18 at 23:00; Status DC Risperidone (RisperDAL) 0.75 mg HS PO Last administered on 03/14/18at 21:12; Start 03/13/18 at 21:00; Stop 03/15/18 at 18:49; Status DC Oxcarbazepine (Trileptal) 150 mg BID PO Last administered on 03/27/18at 19:45; Start 03/18/18 at 21:00; Stop 03/28/18 at 01:05; Status DC Oxcarbazepine (Trileptal) 150 mg BID@0900,1300 PO Last administered on at 14:03; Start 03/28/18 at 09:00 Active Scripts Active Reported Novolog Flexpen (Insulin Aspart) 100 Unit/1 Ml Insuln.pen 2-10 Units SQ TIDWMEALHC Risperdal (Risperidone) 0.25 Mg Tablet 0.25 Mg BID Cymbalta (Duloxetine Hcl) 60 Mg Capsule.dr 60 Mg PO DAILY Famotidine 20 Mg Tablet 20 Mg PO BID Mag-Al Plus Xs Suspension (Mag Hydrox/Al Hydrox/Simeth) 30 Ml Oral.susp 15 Ml PO PRN AFTMEALHC PRN Celebrex (Celecoxib) 100 Mg Capsule 100 Mg PO BID Vitamin C (Ascorbate Calcium) 500 Mg Tablet 500 Mg PO DAILY Robitussin Cough-Chest Dm Liq (Guaifenesin/Dextromethorphan) 237 Ml Liquid 10 Ml PO PRN Q4HRS PRN Percocet 10-325 Mg Tablet (Oxycodone Hcl/Acetaminophen) 1 Each Tablet 1 Tab PO PRN Q4HRS PRN Percocet 10-325 Mg Tablet (Oxycodone Hcl/Acetaminophen) 1 Each Tablet 1 Tab PO BID Ondansetron Hcl 4 Mg Tablet 4 Mg PO PRN Q4HRS PRN Nystatin 15 Gm Powder 1 Sam TP PRN TID PRN Nitrostat (Nitroglycerin) 0.4 Mg Tab.subl 0.4 Mg SL PRN Q5MIN PRN MDD 3tabs Melatonin 5 Mg Tablet (Melatonin/Pyridoxine) 1 Each Tablet 6 Mg PO QHS Loperamide (Loperamide Hcl) 2 Mg Tablet 2 Mg PO PRN Q4HRS PRN MDD 16mg Keppra (Levetiracetam) 500 Mg Tablet 500 Mg PO BID Ferrous Sulfate 325 Mg Tablet 325 Mg PO DAILY Neurontin (Gabapentin) 300 Mg Capsule 300 Mg PO TID Voltaren (Diclofenac Sodium) 100 Gm Gel..gram. 4 Gm TP PRN QID PRN Budesonide 0.5 Mg/2 Ml Ampul.neb 0.5 Mg NEB PRN BID PRN Dicyclomine Hcl 10 Mg Capsule 10 Mg PO PRN Q8HRS PRN Artificial Tears Eye Drops (Dextran 70/Hypromellose) 15 Ml Drops 1 Drop OU TID PRN Anusol-Hc (Hydrocortisone Acetate) 25 Mg Supp.rect 25 Mg RC PRN Q12HR PRN Anusol-Hc (Hydrocortisone) 30 Gm Cream..g. 1 Sam RC PRN Q24HRS PRN Norvasc (Amlodipine Besylate) 10 Mg Tablet 10 Mg PO DAILY Alprazolam 0.5 Mg Tablet 0.5 Mg PO HS Tylenol (Acetaminophen) 325 Mg Tablet 650 Mg PO PRN Q6HRS PRN Albuterol Sulfate Neb Soln (Albuterol Sulfate) 2.5 Mg/3 Ml Vial.neb 2.5 Mg NEB PRN Q4HRS PRN Milk Of Magnesia (Magnesium Hydroxide) 400 Mg/5 Ml Oral.susp 2,400 Mg PO PRN QHS PRN Actos (Pioglitazone Hcl) 15 Mg Tablet 15 Mg PO [id number] I have reviewed the current psychotropics carefully including drug interactions. Risk benefit ratio favors no change other than as noted in my dictated progress note. Diagnosis: Problems: (1) Anxiety disorder (2) Impulse control disorder (3) Major depressive disorder, recurrent episode (4) Mild cognitive impairment BEA SAWANT MD Mar 30, 2018 20:52
[2018-03-31 05:56] VITALS: BP 121/66
[2018-03-31] MEDS: INSULIN LISPRO 300 UNITS/3 ML INSULN.PEN. SQ SCH ×4 (07:32→20:27)
[2018-03-31] MEDS: DULoxetine HCL 60 MG CAPSULE.DR PO SCH (09:34)
[2018-03-31] MEDS: PIOGLITAZONE 15 MG TABLET. PO SCH (09:34)
[2018-03-31] MEDS: GABAPENTIN 300 MG CAPSULE. PO SCH ×2 (09:35→20:24)
[2018-03-31] MEDS: FERROUS SULFATE 325 MG TABLET. PO SCH (09:35)
[2018-03-31] MEDS: amLODIPine BESYLATE 10 MG TABLET PO SCH (09:36)
[2018-03-31] MEDS: levETIRAcetam 500 MG TABLET PO SCH ×2 (09:36→20:23)
[2018-03-31] MEDS: ASCORBIC ACID 500 MG TABLET PO SCH (09:36)
[2018-03-31] MEDS: OXcarbazepine 150 MG TABLET. PO SCH ×2 (09:36→13:24)
[2018-03-31] MEDS: FAMOTIDINE 20 MG TABLET PO SCH (09:36)
[2018-03-31] MEDS: oxyCODONE/APAP 10/325 1 TAB TABLET PO SCH ×2 (09:51→20:23)
[2018-03-31] MEDS: BUDESONIDE 0.5 MG/2 ML NEBU NEB SCH ×2 (11:15→21:01)
[2018-03-31 16:06] VITALS: BP 135/65
[2018-03-31] MEDS: MELATONIN 3 MG TABLET PO SCH (20:23)
[2018-03-31] MEDS: MIRTAZAPINE 7.5 MG TABLET. PO SCH (20:23)
--- NOTE | 2018-03-31 20:51 | PDOC ---
Exam Note: Neal Note: Please also refer to the separate dictated note~for this date of service dictated separately.~Patient seen individually. Discussed the patient with Nursing staff reviewed the chart.~Reviewed interim history and current functioning. Reviewed vital signs,~Labs/ Radiology~and current medications noted below. Continue current treatment with the changes noted in the dictated addendum note Assessment: Vital Signs: Vital Signs Date Time Temp Pulse Resp B/P (MAP) Pulse Ox O2 Delivery O2 Flow Rate FiO2 03/31/18 16:06 97.7 77 18 135/65 (88) 98 03/31/18 11:15 Room Air I&O Intake and Output 03/31/18 07:00 Intake Total 480 ml Balance 480 ml Intake Oral 480 ml Labs: Laboratory Tests Test 03/31/18 07:23 03/31/18 11:46 03/31/18 16:43 03/31/18 19:12 Glucose (Fingerstick) 126 mg/dL (70-99) H 250 mg/dL (70-99) H 258 mg/dL (70-99) H 269 mg/dL (70-99) H Current Medications: Meds: Current Medications Acetaminophen (Tylenol) 1,000 mg 1X ONCE PO Last administered on 02/22/18at 03: 05; Start 02/22/18 at 03:30; Stop 02/22/18 at 03:31; Status DC Alprazolam (Xanax) 0.5 mg QHS PO Last administered on 03/11/18at 19:50; Start at 21:00; Stop 03/12/18 at 18:14; Status DC Duloxetine HCl (Cymbalta) 60 mg DAILY PO Last administered on 03/31/18at 09:34; Start 02/22/18 at 09:00 Melatonin 6 mg QHS PO Last administered on 03/31/18at 20:23; Start 02/22/18 at 21:00 Risperidone (RisperDAL) 0.25 mg BID PO Last administered on 02/23/18at 08:51; Start 02/22/18 at 09:00; Stop 02/23/18 at 13:23; Status DC Acetaminophen (Tylenol) 650 mg PRN Q6HRS PRN PO PAIN / TEMP Last administered on 03/28/18at 06:12; Start 02/22/18 at 05:00 Albuterol Sulfate (Ventolin) 2.5 mg PRN Q4HRS PRN NEB Dyspnea; Start 02/22/18 at 05:00 Diclofenac Sodium (Voltaren) 4 sam PRN QID PRN TP R Knee Pain; Start 02/22/18 at 05:00 Dicyclomine HCl (Bentyl) 10 mg PRN Q8HRS PRN PO Bowel Cramps; Start 02/22/18 at 05:00 Ferrous Sulfate (Feosol) 325 mg DAILY PO Last administered on 03/31/18at 09:35; Start 02/22/18 at 09:00 Gabapentin (Neurontin) 300 mg BID PO Last administered on 03/31/18at 20:24; Start 02/22/18 at 09:00 Hydrocortisone (Proctosol-Hc) 1 sam PRN Q24HRS PRN RC Hemorrhoids; Start at 05:00 Insulin Aspart (NovoLOG) BS 200-2,50= 2 un... TIDWMEALHC SQ ; Start 02/22/18 at 08:00; Stop 02/22/18 at 08:01; Status DC Al Hydroxide/Mg Hydroxide (Mylanta Plus Xs) 15 ml PRN AFTMEALHC PRN PO DYSPEPSIA Last administered on 03/20/18at 04:14; Start 02/22/18 at 05:00 Magnesium Hydroxide (Milk Of Magnesia) 2,400 mg PRN QHS PRN PO CONSTIPATION Last administered on 03/20/18at 08:23; Start 02/22/18 at 05:00 Nitroglycerin (Nitrostat) 0.4 mg PRN Q5MIN PRN SL CHEST PAIN; Start 02/22/18 at 05:00 Nystatin (Nystop) 1 sam PRN TID PRN TP REDNESS; Start 02/22/18 at 05:00 Oxycodone/ Acetaminophen (Percocet 10/325) 1 tab BID PO Last administered on at 20:23; Start 02/22/18 at 09:00 Oxycodone/ Acetaminophen (Percocet 10/325) 1 tab PRN Q4HRS PRN PO PAIN Last administered on 03/17/18at 17:39; Start 02/22/18 at 05:00 Amlodipine Besylate (Norvasc) 10 mg DAILY PO Last administered on 03/31/18 09: 36; Start 02/22/18 at 09:00 Ascorbic Acid (Vitamin C) 500 mg DAILY PO Last administered on 03/31/18 09:36 ; Start 02/22/18 at 09:00 Budesonide (Pulmicort) 0.5 mg RTBID NEB Last administered on 03/31/18at 11:15; Start 02/22/18 at 08:00 Celecoxib (CeleBREX) 100 mg BID PO Last administered on 03/04/18 07:58; Start 02/22/18 at 09:00; Stop 03/04/18 at 17:39; Status DC Artificial Tears (Artificial Tears) 1 drop TID PRN PRN OU DRY EYE; Start at 05:30 Famotidine (Pepcid) 20 mg DAILY PO Last administered on 03/31/18 09:36; Start 02/22/18 at 09:00 Guaifenesin (Robitussin Dm) 10 ml PRN Q4HRS PRN PO COUGH; Start 02/22/18 at 05: 30 Hydrocortisone Acetate (Anucort-Hc) 25 mg PRN Q12HR PRN DC RECTAL PAIN; Start 02/22/18 at 05:30 Levetiracetam (Keppra) 500 mg BID PO Last administered on 03/31/18at 20:23; Start 02/22/18 at 09:00 Loperamide HCl (Imodium) 2 mg PRN Q4HRS PRN PO DIARRHEA; Start 02/22/18 at 05: 30 Ondansetron HCl (Zofran Odt) 4 mg PRN Q4HRS PRN PO NAUSEA/VOMITING; Start 02/22 at 05:30 Pioglitazone HCl (Actos) 15 mg DAILY PO Last administered on 03/31/18at 09:34; Start 02/22/18 at 09:00 Multi-Ingredient Ointment (Analgesic [place]) 1 sam PRN QID PRN TP MUSCLE PAIN; Start 02/22/18 at 05:00 Insulin Human Lispro (HumaLOG) TIDWMEALHC SQ Last administered on 03/31/18at 20 :27; Start 02/22/18 at 08:00 Mirtazapine (Remeron) 7.5 mg QHS PO Last administered on 03/31/18 20:23; Start 02/22/18 at 21:00 Risperidone (RisperDAL) 0.375 mg BID PO Last administered on 02/26/18at 11:50; Start 02/23/18 at 21:00; Stop 02/26/18 at 19:49; Status DC Olanzapine (ZyPREXA ZYDIS) 5 mg PRN Q2HR PRN PO PSYCHOSIS Last administered on 03/18/18at 07:53; Start 02/23/18 at 19:45 Divalproex Sodium (Depakote Sprinkles) 125 mg TID@0900,1300,1700 PO Last administered on 03/01/18at 17:39; Start 02/26/18 at 09:00; Stop 03/01/18 at 18:29 ; Status DC Risperidone (RisperDAL) 0.5 mg BID PO Last administered on 03/01/18at 10:17; Start 02/26/18 at 21:00; Stop 03/01/18 at 18:29; Status DC Divalproex Sodium (Depakote Sprinkles) 250 mg TID@0900,1300,1700 PO Last administered on 03/04/18at 17:59; Start 03/02/18 at 09:00; Stop 03/04/18 at 19:22 ; Status DC Risperidone (RisperDAL) 0.75 mg BID PO Last administered on 03/13/18 07:42; Start 03/01/18 at 21:00; Stop 03/13/18 at 15:04; Status DC Divalproex Sodium (Depakote Er) 1,000 mg QHS PO Last administered on 03/06/18at 19:17; Start 03/04/18 at 21:00; Stop 03/07/18 at 19:54; Status DC Divalproex Sodium (Depakote Er) 1,000 mg QHS PO Last administered on 03/14/18 21:12; Start 03/07/18 at 21:00; Stop 03/15/18 at 18:49; Status DC Divalproex Sodium (Depakote Er) 250 mg QHS PO Last administered on 03/14/18 21: 12; Start 03/07/18 at 21:00; Stop 03/15/18 at 18:49; Status DC Alprazolam (Xanax) 0.25 mg QHS PO Last administered on 03/27/18at 19:46; Start 03/13/18 at 21:00; Stop 03/27/18 at 23:00; Status DC Risperidone (RisperDAL) 0.75 mg HS PO Last administered on 03/14/18at 21:12; Start 03/13/18 at 21:00; Stop 03/15/18 at 18:49; Status DC Oxcarbazepine (Trileptal) 150 mg BID PO Last administered on 03/27/18at 19:45; Start 03/18/18 at 21:00; Stop 03/28/18 at 01:05; Status DC Oxcarbazepine (Trileptal) 150 mg BID@0900,1300 PO Last administered on at 13:24; Start 03/28/18 at 09:00 Active Scripts Active Reported Novolog Flexpen (Insulin Aspart) 100 Unit/1 Ml Insuln.pen 2-10 Units SQ TIDWMEALHC Risperdal (Risperidone) 0.25 Mg Tablet 0.25 Mg BID Cymbalta (Duloxetine Hcl) 60 Mg Capsule.dr 60 Mg PO DAILY Famotidine 20 Mg Tablet 20 Mg PO BID Mag-Al Plus Xs Suspension (Mag Hydrox/Al Hydrox/Simeth) 30 Ml Oral.susp 15 Ml PO PRN AFTMEALHC PRN Celebrex (Celecoxib) 100 Mg Capsule 100 Mg PO BID Vitamin C (Ascorbate Calcium) 500 Mg Tablet 500 Mg PO DAILY Robitussin Cough-Chest Dm Liq (Guaifenesin/Dextromethorphan) 237 Ml Liquid 10 Ml PO PRN Q4HRS PRN Percocet 10-325 Mg Tablet (Oxycodone Hcl/Acetaminophen) 1 Each Tablet 1 Tab PO PRN Q4HRS PRN Percocet 10-325 Mg Tablet (Oxycodone Hcl/Acetaminophen) 1 Each Tablet 1 Tab PO BID Ondansetron Hcl 4 Mg Tablet 4 Mg PO PRN Q4HRS PRN Nystatin 15 Gm Powder 1 Sam TP PRN TID PRN Nitrostat (Nitroglycerin) 0.4 Mg Tab.subl 0.4 Mg SL PRN Q5MIN PRN MDD 3tabs Melatonin 5 Mg Tablet (Melatonin/Pyridoxine) 1 Each Tablet 6 Mg PO QHS Loperamide (Loperamide Hcl) 2 Mg Tablet 2 Mg PO PRN Q4HRS PRN MDD 16mg Keppra (Levetiracetam) 500 Mg Tablet 500 Mg PO BID Ferrous Sulfate 325 Mg Tablet 325 Mg PO DAILY Neurontin (Gabapentin) 300 Mg Capsule 300 Mg PO TID Voltaren (Diclofenac Sodium) 100 Gm Gel..gram. 4 Gm TP PRN QID PRN Budesonide 0.5 Mg/2 Ml Ampul.neb 0.5 Mg NEB PRN BID PRN Dicyclomine Hcl 10 Mg Capsule 10 Mg PO PRN Q8HRS PRN Artificial Tears Eye Drops (Dextran 70/Hypromellose) 15 Ml Drops 1 Drop OU TID PRN Anusol-Hc (Hydrocortisone Acetate) 25 Mg Supp.rect 25 Mg RC PRN Q12HR PRN Anusol-Hc (Hydrocortisone) 30 Gm Cream..g. 1 Sam RC PRN Q24HRS PRN Norvasc (Amlodipine Besylate) 10 Mg Tablet 10 Mg PO DAILY Alprazolam 0.5 Mg Tablet 0.5 Mg PO HS Tylenol (Acetaminophen) 325 Mg Tablet 650 Mg PO PRN Q6HRS PRN Albuterol Sulfate Neb Soln (Albuterol Sulfate) 2.5 Mg/3 Ml Vial.neb 2.5 Mg NEB PRN Q4HRS PRN Milk Of Magnesia (Magnesium Hydroxide) 400 Mg/5 Ml Oral.susp 2,400 Mg PO PRN QHS PRN Actos (Pioglitazone Hcl) 15 Mg Tablet 15 Mg PO [id number] I have reviewed the current psychotropics carefully including drug interactions. Risk benefit ratio favors no change other than as noted in my dictated progress note. Diagnosis: Problems: (1) Anxiety disorder (2) Impulse control disorder (3) Major depressive disorder, recurrent episode (4) Mild cognitive impairment BEA SAWANT MD Mar 31, 2018 20:51
[2018-03-31] MEDS ORDERED: ASCO500C9 PO (23:44)
[2018-03-31] MEDS ORDERED: HYDR28.311 RC (23:54)
[2018-04-01] MEDS ORDERED: METH29OI TP (00:04)
[2018-04-01] MEDS ORDERED: MIRT15TA3 PO (00:05)
[2018-04-01] MEDS ORDERED: MIRT15TA PO (00:05)
[2018-04-01] MEDS ORDERED: OLAN5TAB3 PO (00:10)
[2018-04-01] MEDS ORDERED: OXCA150T3 PO (00:12)
[2018-04-01] MEDS ORDERED: DEXT15DR5 EACHEYE (00:16)
[2018-04-01 05:48] VITALS: BP 154/77
[2018-04-01] MEDS: INSULIN LISPRO 300 UNITS/3 ML INSULN.PEN. SQ SCH ×4 (08:00→19:52)
[2018-04-01] MEDS: PIOGLITAZONE 15 MG TABLET. PO SCH (09:03)
[2018-04-01] MEDS: FAMOTIDINE 20 MG TABLET PO SCH (09:03)
[2018-04-01] MEDS: ASCORBIC ACID 500 MG TABLET PO SCH (09:04)
[2018-04-01] MEDS: GABAPENTIN 300 MG CAPSULE. PO SCH ×2 (09:04→19:40)
[2018-04-01] MEDS: FERROUS SULFATE 325 MG TABLET. PO SCH (09:04)
[2018-04-01] MEDS: DULoxetine HCL 60 MG CAPSULE.DR PO SCH (09:04)
[2018-04-01] MEDS: OXcarbazepine 150 MG TABLET. PO SCH ×2 (09:04→14:30)
[2018-04-01] MEDS: amLODIPine BESYLATE 10 MG TABLET PO SCH (09:04)
[2018-04-01] MEDS: levETIRAcetam 500 MG TABLET PO SCH ×2 (09:04→19:40)
[2018-04-01] MEDS: oxyCODONE/APAP 10/325 1 TAB TABLET PO SCH ×2 (09:05→19:41)
[2018-04-01] MEDS: BUDESONIDE 0.5 MG/2 ML NEBU NEB SCH ×2 (09:43→20:20)
[2018-04-01 16:13] VITALS: BP 142/80
[2018-04-01] MEDS: MIRTAZAPINE 7.5 MG TABLET. PO SCH (19:40)
[2018-04-01] MEDS: MELATONIN 3 MG TABLET PO SCH (19:41)
--- NOTE | 2018-04-01 20:50 | PDOC ---
Exam Note: Neal Note: Please also refer to the separate dictated note~for this date of service dictated separately.~Patient seen individually. Discussed the patient with Nursing staff reviewed the chart.~Reviewed interim history and current functioning. Reviewed vital signs,~Labs/ Radiology~and current medications noted below. Continue current treatment with the changes noted in the dictated addendum note Assessment: Vital Signs: Vital Signs Date Time Temp Pulse Resp B/P (MAP) Pulse Ox O2 Delivery O2 Flow Rate FiO2 04/01/18 20:20 98 Room Air 04/01/18 16:13 97.8 81 18 142/80 (100) I&O Intake and Output 04/01/18 07:00 Intake Total 1200 ml Balance 1200 ml Intake Oral 1200 ml Labs: Laboratory Tests Test 04/01/18 07:15 04/01/18 12:09 04/01/18 16:59 04/01/18 18:58 Glucose (Fingerstick) 109 mg/dL (70-99) H 139 mg/dL (70-99) H 276 mg/dL (70-99) H 273 mg/dL (70-99) H Current Medications: Meds: Current Medications Acetaminophen (Tylenol) 1,000 mg 1X ONCE PO Last administered on 02/22/18at 03: 05; Start 02/22/18 at 03:30; Stop 02/22/18 at 03:31; Status DC Alprazolam (Xanax) 0.5 mg QHS PO Last administered on 03/11/18at 19:50; Start at 21:00; Stop 03/12/18 at 18:14; Status DC Duloxetine HCl (Cymbalta) 60 mg DAILY PO Last administered on 04/01/18at 09:04; Start 02/22/18 at 09:00 Melatonin 6 mg QHS PO Last administered on 04/01/18at 19:41; Start 02/22/18 at 21:00 Risperidone (RisperDAL) 0.25 mg BID PO Last administered on 02/23/18at 08:51; Start 02/22/18 at 09:00; Stop 02/23/18 at 13:23; Status DC Acetaminophen (Tylenol) 650 mg PRN Q6HRS PRN PO PAIN / TEMP Last administered on 03/28/18at 06:12; Start 02/22/18 at 05:00 Albuterol Sulfate (Ventolin) 2.5 mg PRN Q4HRS PRN NEB Dyspnea; Start 02/22/18 at 05:00 Diclofenac Sodium (Voltaren) 4 sam PRN QID PRN TP R Knee Pain; Start 02/22/18 at 05:00 Dicyclomine HCl (Bentyl) 10 mg PRN Q8HRS PRN PO Bowel Cramps; Start 02/22/18 at 05:00 Ferrous Sulfate (Feosol) 325 mg DAILY PO Last administered on 04/01/18at 09:04; Start 02/22/18 at 09:00 Gabapentin (Neurontin) 300 mg BID PO Last administered on 04/01/18 19:40; Start 02/22/18 at 09:00 Hydrocortisone (Proctosol-Hc) 1 sam PRN Q24HRS PRN RC Hemorrhoids; Start at 05:00 Insulin Aspart (NovoLOG) BS 200-2,50= 2 un... TIDWMEALHC SQ ; Start 02/22/18 at 08:00; Stop 02/22/18 at 08:01; Status DC Al Hydroxide/Mg Hydroxide (Mylanta Plus Xs) 15 ml PRN AFTMEALHC PRN PO DYSPEPSIA Last administered on 03/20/18at 04:14; Start 02/22/18 at 05:00 Magnesium Hydroxide (Milk Of Magnesia) 2,400 mg PRN QHS PRN PO CONSTIPATION Last administered on 03/20/18at 08:23; Start 02/22/18 at 05:00 Nitroglycerin (Nitrostat) 0.4 mg PRN Q5MIN PRN SL CHEST PAIN; Start 02/22/18 at 05:00 Nystatin (Nystop) 1 sam PRN TID PRN TP REDNESS; Start 02/22/18 at 05:00 Oxycodone/ Acetaminophen (Percocet 10/325) 1 tab BID PO Last administered on at 19:41; Start 02/22/18 at 09:00 Oxycodone/ Acetaminophen (Percocet 10/325) 1 tab PRN Q4HRS PRN PO PAIN Last administered on 03/17/18at 17:39; Start 02/22/18 at 05:00 Amlodipine Besylate (Norvasc) 10 mg DAILY PO Last administered on 04/01/18 09: 04; Start 02/22/18 at 09:00 Ascorbic Acid (Vitamin C) 500 mg DAILY PO Last administered on 04/01/18 09:04 ; Start 02/22/18 at 09:00 Budesonide (Pulmicort) 0.5 mg RTBID NEB Last administered on 04/01/18 20:20; Start 02/22/18 at 08:00 Celecoxib (CeleBREX) 100 mg BID PO Last administered on 03/04/18 07:58; Start 02/22/18 at 09:00; Stop 03/04/18 at 17:39; Status DC Artificial Tears (Artificial Tears) 1 drop TID PRN PRN OU DRY EYE; Start at 05:30 Famotidine (Pepcid) 20 mg DAILY PO Last administered on 04/01/18 09:03; Start 02/22/18 at 09:00 Guaifenesin (Robitussin Dm) 10 ml PRN Q4HRS PRN PO COUGH; Start 02/22/18 at 05: 30 Hydrocortisone Acetate (Anucort-Hc) 25 mg PRN Q12HR PRN NE RECTAL PAIN; Start 02/22/18 at 05:30 Levetiracetam (Keppra) 500 mg BID PO Last administered on 04/01/18 19:40; Start 02/22/18 at 09:00 Loperamide HCl (Imodium) 2 mg PRN Q4HRS PRN PO DIARRHEA; Start 02/22/18 at 05: 30 Ondansetron HCl (Zofran Odt) 4 mg PRN Q4HRS PRN PO NAUSEA/VOMITING; Start 02/22 at 05:30 Pioglitazone HCl (Actos) 15 mg DAILY PO Last administered on 04/01/18at 09:03; Start 02/22/18 at 09:00 Multi-Ingredient Ointment (Analgesic Martin) 1 sam PRN QID PRN TP MUSCLE PAIN; Start 02/22/18 at 05:00 Insulin Human Lispro (HumaLOG) TIDWMEALHC SQ Last administered on 04/01/18 19 :52; Start 02/22/18 at 08:00 Mirtazapine (Remeron) 7.5 mg QHS PO Last administered on 04/01/18 19:40; Start 02/22/18 at 21:00 Risperidone (RisperDAL) 0.375 mg BID PO Last administered on 02/26/18at 11:50; Start 02/23/18 at 21:00; Stop 02/26/18 at 19:49; Status DC Olanzapine (ZyPREXA ZYDIS) 5 mg PRN Q2HR PRN PO PSYCHOSIS Last administered on 03/18/18 07:53; Start 02/23/18 at 19:45 Divalproex Sodium (Depakote Sprinkles) 125 mg TID@0900,1300,1700 PO Last administered on 03/01/18 17:39; Start 02/26/18 at 09:00; Stop 03/01/18 at 18:29 ; Status DC Risperidone (RisperDAL) 0.5 mg BID PO Last administered on 03/01/18at 10:17; Start 02/26/18 at 21:00; Stop 03/01/18 at 18:29; Status DC Divalproex Sodium (Depakote Sprinkles) 250 mg TID@0900,1300,1700 PO Last administered on 03/04/18at 17:59; Start 03/02/18 at 09:00; Stop 03/04/18 at 19:22 ; Status DC Risperidone (RisperDAL) 0.75 mg BID PO Last administered on 03/13/18 07:42; Start 03/01/18 at 21:00; Stop 03/13/18 at 15:04; Status DC Divalproex Sodium (Depakote Er) 1,000 mg QHS PO Last administered on 03/06/18at 19:17; Start 03/04/18 at 21:00; Stop 03/07/18 at 19:54; Status DC Divalproex Sodium (Depakote Er) 1,000 mg QHS PO Last administered on 03/14/18 21:12; Start 03/07/18 at 21:00; Stop 03/15/18 at 18:49; Status DC Divalproex Sodium (Depakote Er) 250 mg QHS PO Last administered on 03/14/18 21: 12; Start 03/07/18 at 21:00; Stop 03/15/18 at 18:49; Status DC Alprazolam (Xanax) 0.25 mg QHS PO Last administered on 03/27/18at 19:46; Start 03/13/18 at 21:00; Stop 03/27/18 at 23:00; Status DC Risperidone (RisperDAL) 0.75 mg HS PO Last administered on 03/14/18at 21:12; Start 03/13/18 at 21:00; Stop 03/15/18 at 18:49; Status DC Oxcarbazepine (Trileptal) 150 mg BID PO Last administered on 03/27/18at 19:45; Start 03/18/18 at 21:00; Stop 03/28/18 at 01:05; Status DC Oxcarbazepine (Trileptal) 150 mg BID@0900,1300 PO Last administered on at 14:30; Start 03/28/18 at 09:00 Active Scripts Active Reported Artificial Tears Eye Drops (Dextran 70/Hypromellose) 15 Ml Drops 1 Drop EACHEYE PRN TID PRN Trileptal (Oxcarbazepine) 150 Mg Tablet 150 Mg PO BID@0900,1300 Zyprexa (Olanzapine) 5 Mg Tablet 5 Mg PO PRN Q2HR PRN Mirtazapine 15 Mg Tablet 7.5 Mg PO QHS Remeron (Mirtazapine) 15 Mg Tablet 15 Mg PO Analgesic Martin (Methyl Salicylate/Menthol) 28 Gm Oint...g. 1 Gm TP PRN QID PRN Proctosol-Hc (Hydrocortisone) 28.35 Gm Cream..g. 1 Sam RC PRN Q24HRS PRN Vitamin C (Ascorbic Acid) 500 Mg Capsule 500 Mg PO DAILY Novolog Flexpen (Insulin Aspart) 100 Unit/1 Ml Insuln.pen 2-10 Units SQ TIDWMEALHC Risperdal (Risperidone) 0.25 Mg Tablet 0.25 Mg BID Cymbalta (Duloxetine Hcl) 60 Mg Capsule.dr 60 Mg PO DAILY Famotidine 20 Mg Tablet 20 Mg PO BID Mag-Al Plus Xs Suspension (Mag Hydrox/Al Hydrox/Simeth) 30 Ml Oral.susp 15 Ml PO PRN AFTMEALHC PRN Celebrex (Celecoxib) 100 Mg Capsule 100 Mg PO BID Vitamin C (Ascorbate Calcium) 500 Mg Tablet 500 Mg PO DAILY Robitussin Cough-Chest Dm Liq (Guaifenesin/Dextromethorphan) 237 Ml Liquid 10 Ml PO PRN Q4HRS PRN Percocet 10-325 Mg Tablet (Oxycodone Hcl/Acetaminophen) 1 Each Tablet 1 Tab PO PRN Q4HRS PRN Percocet 10-325 Mg Tablet (Oxycodone Hcl/Acetaminophen) 1 Each Tablet 1 Tab PO BID Ondansetron Hcl 4 Mg Tablet 4 Mg PO PRN Q4HRS PRN Nystatin 15 Gm Powder 1 Sam TP PRN TID PRN Nitrostat (Nitroglycerin) 0.4 Mg Tab.subl 0.4 Mg SL PRN Q5MIN PRN MDD 3tabs Melatonin 5 Mg Tablet (Melatonin/Pyridoxine) 1 Each Tablet 6 Mg PO QHS Loperamide (Loperamide Hcl) 2 Mg Tablet 2 Mg PO PRN Q4HRS PRN MDD 16mg Keppra (Levetiracetam) 500 Mg Tablet 500 Mg PO BID Ferrous Sulfate 325 Mg Tablet 325 Mg PO DAILY Neurontin (Gabapentin) 300 Mg Capsule 300 Mg PO TID Voltaren (Diclofenac Sodium) 100 Gm Gel..gram. 4 Gm TP PRN QID PRN Budesonide 0.5 Mg/2 Ml Ampul.neb 0.5 Mg NEB PRN BID PRN Dicyclomine Hcl 10 Mg Capsule 10 Mg PO PRN Q8HRS PRN Artificial Tears Eye Drops (Dextran 70/Hypromellose) 15 Ml Drops 1 Drop OU TID PRN Anusol-Hc (Hydrocortisone Acetate) 25 Mg Supp.rect 25 Mg RC PRN Q12HR PRN Anusol-Hc (Hydrocortisone) 30 Gm Cream..g. 1 Sam RC PRN Q24HRS PRN Norvasc (Amlodipine Besylate) 10 Mg Tablet 10 Mg PO DAILY Alprazolam 0.5 Mg Tablet 0.5 Mg PO HS Tylenol (Acetaminophen) 325 Mg Tablet 650 Mg PO PRN Q6HRS PRN Albuterol Sulfate Neb Soln (Albuterol Sulfate) 2.5 Mg/3 Ml Vial.neb 2.5 Mg NEB PRN Q4HRS PRN Milk Of Magnesia (Magnesium Hydroxide) 400 Mg/5 Ml Oral.susp 2,400 Mg PO PRN QHS PRN Actos (Pioglitazone Hcl) 15 Mg Tablet 15 Mg PO DAILYWBKFT I have reviewed the current psychotropics carefully including drug interactions. Risk benefit ratio favors no change other than as noted in my dictated progress note. Diagnosis: Problems: (1) Anxiety disorder (2) Impulse control disorder (3) Major depressive disorder, recurrent episode (4) Mild cognitive impairment BEA SAWANT MD Apr 01, 2018 20:50
--- NOTE | 2018-04-02 01:18 | PN ---
DATE: 03/31/2018 PSYCHIATRIC PROGRESS NOTE This is a late entry 03/31/2018, covers the elements not covered in my initial note. SUBJECTIVE: I met with the patient in the evening. The patient is doing much better. Cognitively he seems clearer, ambulating with a walker, quite an improvement. REVIEW OF SYSTEMS: Other than ambulating with a walker, no CV, , pulmonary, eye, ENT system symptoms on review. MENTAL STATUS EXAM: Oriented to herself and situation. Speech coherent, less pressured. Abstraction fair, computation impaired, language function intact, attention span short. Mood and affect less labile. LABORATORY DATA: Reviewed. IMPRESSION: Major depressive disorder with psychotic features in partial remission; major neurocognitive disorder, Alzheimer, vascular with delusion, depression. Rest unchanged. PLAN: Continue psychotropics mentioned in my initial note. Transition to half-way 04/01/2018. MAN Farrah SAWANT MD DR: MARK/daphne JOB#: [id number] / [id number]
--- NOTE | 2018-04-02 01:53 | PN ---
DATE: 03/30/2018 This is a late entry 03/30/2018 covers the elements not covered in my initial note. SUBJECTIVE: The patient was seen individually in the evening, staffed at a treatment team meeting earlier in the day, sleeping about 7 hours. Appetite 70%, often sleeps during the day in her wheelchair, compliant with medications, much more alert, oriented, attempting to walk with a walker by herself with some supervision, interactive. REVIEW OF SYSTEMS: Ambulation impaired with walker. No CV, , pulmonary, eye, ENT system symptoms on review. MENTAL STATUS EXAM: Oriented to herself and situation. Speech is coherent, has some latency, at times pressured. Abstraction fair, computation impaired, language function intact, attention span short. Mood and affect remain somewhat withdrawn but improved. LABORATORY DATA: Reviewed. IMPRESSION: Major depressive disorder with psychotic features in partial remission; bipolar 1 disorder, mixed, in partial remission; major neurocognitive disorder, early Alzheimer, vascular with delusion, depression. PLAN: Continue current psychotropics from initial note. Transition to retirement end of the week. MAN Farrah SAWANT MD DR: MARK/daphne JOB#: [id number] / [id number]
[2018-04-02 06:01] VITALS: BP 119/60
[2018-04-02] MEDS: BUDESONIDE 0.5 MG/2 ML NEBU NEB SCH ×2 (08:00→20:01)
[2018-04-02] MEDS: INSULIN LISPRO 300 UNITS/3 ML INSULN.PEN. SQ SCH ×4 (08:00→19:57)
[2018-04-02] MEDS: PIOGLITAZONE 15 MG TABLET. PO SCH (08:48)
[2018-04-02] MEDS: levETIRAcetam 500 MG TABLET PO SCH ×2 (08:48→19:54)
[2018-04-02] MEDS: ASCORBIC ACID 500 MG TABLET PO SCH (08:49)
[2018-04-02] MEDS: FERROUS SULFATE 325 MG TABLET. PO SCH (08:49)
[2018-04-02] MEDS: GABAPENTIN 300 MG CAPSULE. PO SCH ×2 (08:49→19:54)
[2018-04-02] MEDS: OXcarbazepine 150 MG TABLET. PO SCH ×2 (08:49→12:38)
[2018-04-02] MEDS: FAMOTIDINE 20 MG TABLET PO SCH (08:49)
[2018-04-02] MEDS: DULoxetine HCL 60 MG CAPSULE.DR PO SCH (08:49)
[2018-04-02] MEDS: amLODIPine BESYLATE 10 MG TABLET PO SCH (08:50)
[2018-04-02] MEDS: oxyCODONE/APAP 10/325 1 TAB TABLET PO SCH ×2 (08:51→19:55)
[2018-04-02 16:03] VITALS: BP 138/63
[2018-04-02] MEDS: MIRTAZAPINE 7.5 MG TABLET. PO SCH (19:54)
[2018-04-02] MEDS: MELATONIN 3 MG TABLET PO SCH (19:55)
--- NOTE | 2018-04-02 22:49 | PDOC ---
Exam Note: Neal Note: Please also refer to the separate dictated note~for this date of service dictated separately.~Patient seen individually. Discussed the patient with Nursing staff reviewed the chart.~Reviewed interim history and current functioning. Reviewed vital signs,~Labs/ Radiology~and current medications noted below. Continue current treatment with the changes noted in the dictated addendum note Assessment: Vital Signs: Vital Signs Date Time Temp Pulse Resp B/P (MAP) Pulse Ox O2 Delivery O2 Flow Rate FiO2 04/02/18 20:00 99 Room Air 04/02/18 16:03 98.2 75 20 138/63 (88) I&O Intake and Output 04/02/18 07:00 Intake Total 720 ml Balance 720 ml Intake Oral 720 ml Labs: Laboratory Tests Test 04/02/18 07:29 04/02/18 12:00 04/02/18 17:31 04/02/18 19:10 Glucose (Fingerstick) 167 mg/dL (70-99) H 254 mg/dL (70-99) H 224 mg/dL (70-99) H 251 mg/dL (70-99) H Current Medications: Meds: Current Medications Acetaminophen (Tylenol) 1,000 mg 1X ONCE PO Last administered on 02/22/18at 03: 05; Start 02/22/18 at 03:30; Stop 02/22/18 at 03:31; Status DC Alprazolam (Xanax) 0.5 mg QHS PO Last administered on 03/11/18at 19:50; Start at 21:00; Stop 03/12/18 at 18:14; Status DC Duloxetine HCl (Cymbalta) 60 mg DAILY PO Last administered on 04/02/18at 08:49; Start 02/22/18 at 09:00 Melatonin 6 mg QHS PO Last administered on 04/02/18at 19:55; Start 02/22/18 at 21:00 Risperidone (RisperDAL) 0.25 mg BID PO Last administered on 02/23/18at 08:51; Start 02/22/18 at 09:00; Stop 02/23/18 at 13:23; Status DC Acetaminophen (Tylenol) 650 mg PRN Q6HRS PRN PO PAIN / TEMP Last administered on 03/28/18at 06:12; Start 02/22/18 at 05:00 Albuterol Sulfate (Ventolin) 2.5 mg PRN Q4HRS PRN NEB Dyspnea; Start 02/22/18 at 05:00 Diclofenac Sodium (Voltaren) 4 sam PRN QID PRN TP R Knee Pain Last administered on 04/02/18 20:17; Start 02/22/18 at 05:00 Dicyclomine HCl (Bentyl) 10 mg PRN Q8HRS PRN PO Bowel Cramps; Start 02/22/18 at 05:00 Ferrous Sulfate (Feosol) 325 mg DAILY PO Last administered on 04/02/18 08:49; Start 02/22/18 at 09:00 Gabapentin (Neurontin) 300 mg BID PO Last administered on 04/02/18 19:54; Start 02/22/18 at 09:00 Hydrocortisone (Proctosol-Hc) 1 sam PRN Q24HRS PRN RC Hemorrhoids; Start at 05:00 Insulin Aspart (NovoLOG) BS 200-2,50= 2 un... TIDWMEALHC SQ ; Start 02/22/18 at 08:00; Stop 02/22/18 at 08:01; Status DC Al Hydroxide/Mg Hydroxide (Mylanta Plus Xs) 15 ml PRN AFTMEALHC PRN PO DYSPEPSIA Last administered on 03/20/18 04:14; Start 02/22/18 at 05:00 Magnesium Hydroxide (Milk Of Magnesia) 2,400 mg PRN QHS PRN PO CONSTIPATION Last administered on 03/20/18 08:23; Start 02/22/18 at 05:00 Nitroglycerin (Nitrostat) 0.4 mg PRN Q5MIN PRN SL CHEST PAIN; Start 02/22/18 at 05:00 Nystatin (Nystop) 1 sam PRN TID PRN TP REDNESS; Start 02/22/18 at 05:00 Oxycodone/ Acetaminophen (Percocet 10/325) 1 tab BID PO Last administered on 19:55; Start 02/22/18 at 09:00 Oxycodone/ Acetaminophen (Percocet 10/325) 1 tab PRN Q4HRS PRN PO PAIN Last administered on 03/17/18 17:39; Start 02/22/18 at 05:00 Amlodipine Besylate (Norvasc) 10 mg DAILY PO Last administered on 04/02/18 08: 50; Start 02/22/18 at 09:00 Ascorbic Acid (Vitamin C) 500 mg DAILY PO Last administered on 04/02/18 08:49 ; Start 02/22/18 at 09:00 Budesonide (Pulmicort) 0.5 mg RTBID NEB Last administered on 04/02/18at 20:01; Start 02/22/18 at 08:00 Celecoxib (CeleBREX) 100 mg BID PO Last administered on 03/04/18 07:58; Start 02/22/18 at 09:00; Stop 03/04/18 at 17:39; Status DC Artificial Tears (Artificial Tears) 1 drop TID PRN PRN OU DRY EYE; Start at 05:30 Famotidine (Pepcid) 20 mg DAILY PO Last administered on 04/02/18at 08:49; Start 02/22/18 at 09:00 Guaifenesin (Robitussin Dm) 10 ml PRN Q4HRS PRN PO COUGH; Start 02/22/18 at 05: 30 Hydrocortisone Acetate (Anucort-Hc) 25 mg PRN Q12HR PRN SD RECTAL PAIN; Start 02/22/18 at 05:30 Levetiracetam (Keppra) 500 mg BID PO Last administered on 04/02/18 19:54; Start 02/22/18 at 09:00 Loperamide HCl (Imodium) 2 mg PRN Q4HRS PRN PO DIARRHEA; Start 02/22/18 at 05: 30 Ondansetron HCl (Zofran Odt) 4 mg PRN Q4HRS PRN PO NAUSEA/VOMITING; Start 02/22 at 05:30 Pioglitazone HCl (Actos) 15 mg DAILY PO Last administered on 04/02/18at 08:48; Start 02/22/18 at 09:00 Multi-Ingredient Ointment (Analgesic Chamberlain) 1 sam PRN QID PRN TP MUSCLE PAIN; Start 02/22/18 at 05:00 Insulin Human Lispro (HumaLOG) TIDWMEALHC SQ Last administered on 04/02/18 19 :57; Start 02/22/18 at 08:00 Mirtazapine (Remeron) 7.5 mg QHS PO Last administered on 04/02/18 19:54; Start 02/22/18 at 21:00 Risperidone (RisperDAL) 0.375 mg BID PO Last administered on 02/26/18at 11:50; Start 02/23/18 at 21:00; Stop 02/26/18 at 19:49; Status DC Olanzapine (ZyPREXA ZYDIS) 5 mg PRN Q2HR PRN PO PSYCHOSIS Last administered on 03/18/18 07:53; Start 02/23/18 at 19:45 Divalproex Sodium (Depakote Sprinkles) 125 mg TID@0900,1300,1700 PO Last administered on 03/01/18at 17:39; Start 02/26/18 at 09:00; Stop 03/01/18 at 18:29 ; Status DC Risperidone (RisperDAL) 0.5 mg BID PO Last administered on 03/01/18at 10:17; Start 02/26/18 at 21:00; Stop 03/01/18 at 18:29; Status DC Divalproex Sodium (Depakote Sprinkles) 250 mg TID@0900,1300,1700 PO Last administered on 03/04/18 17:59; Start 03/02/18 at 09:00; Stop 03/04/18 at 19:22 ; Status DC Risperidone (RisperDAL) 0.75 mg BID PO Last administered on 03/13/18 07:42; Start 03/01/18 at 21:00; Stop 03/13/18 at 15:04; Status DC Divalproex Sodium (Depakote Er) 1,000 mg QHS PO Last administered on 03/06/18 19:17; Start 03/04/18 at 21:00; Stop 03/07/18 at 19:54; Status DC Divalproex Sodium (Depakote Er) 1,000 mg QHS PO Last administered on 03/14/18 21:12; Start 03/07/18 at 21:00; Stop 03/15/18 at 18:49; Status DC Divalproex Sodium (Depakote Er) 250 mg QHS PO Last administered on 03/14/18 21: 12; Start 03/07/18 at 21:00; Stop 03/15/18 at 18:49; Status DC Alprazolam (Xanax) 0.25 mg QHS PO Last administered on 03/27/18at 19:46; Start 03/13/18 at 21:00; Stop 03/27/18 at 23:00; Status DC Risperidone (RisperDAL) 0.75 mg HS PO Last administered on 03/14/18at 21:12; Start 03/13/18 at 21:00; Stop 03/15/18 at 18:49; Status DC Oxcarbazepine (Trileptal) 150 mg BID PO Last administered on 03/27/18at 19:45; Start 03/18/18 at 21:00; Stop 03/28/18 at 01:05; Status DC Oxcarbazepine (Trileptal) 150 mg BID@0900,1300 PO Last administered on at 12:38; Start 03/28/18 at 09:00 Active Scripts Active Reported Artificial Tears Eye Drops (Dextran 70/Hypromellose) 15 Ml Drops 1 Drop EACHEYE PRN TID PRN Trileptal (Oxcarbazepine) 150 Mg Tablet 150 Mg PO BID@0900,1300 Zyprexa (Olanzapine) 5 Mg Tablet 5 Mg PO PRN Q2HR PRN Mirtazapine 15 Mg Tablet 7.5 Mg PO QHS Remeron (Mirtazapine) 15 Mg Tablet 15 Mg PO Analgesic Chamberlain (Methyl Salicylate/Menthol) 28 Gm Oint...g. 1 Gm TP PRN QID PRN Proctosol-Hc (Hydrocortisone) 28.35 Gm Cream..g. 1 Sam RC PRN Q24HRS PRN Vitamin C (Ascorbic Acid) 500 Mg Capsule 500 Mg PO DAILY Novolog Flexpen (Insulin Aspart) 100 Unit/1 Ml Insuln.pen 2-10 Units SQ TIDWMEALHC Risperdal (Risperidone) 0.25 Mg Tablet 0.25 Mg BID Cymbalta (Duloxetine Hcl) 60 Mg Capsule.dr 60 Mg PO DAILY Famotidine 20 Mg Tablet 20 Mg PO BID Mag-Al Plus Xs Suspension (Mag Hydrox/Al Hydrox/Simeth) 30 Ml Oral.susp 15 Ml PO PRN AFTMEALHC PRN Celebrex (Celecoxib) 100 Mg Capsule 100 Mg PO BID Vitamin C (Ascorbate Calcium) 500 Mg Tablet 500 Mg PO DAILY Robitussin Cough-Chest Dm Liq (Guaifenesin/Dextromethorphan) 237 Ml Liquid 10 Ml PO PRN Q4HRS PRN Percocet 10-325 Mg Tablet (Oxycodone Hcl/Acetaminophen) 1 Each Tablet 1 Tab PO PRN Q4HRS PRN Percocet 10-325 Mg Tablet (Oxycodone Hcl/Acetaminophen) 1 Each Tablet 1 Tab PO BID Ondansetron Hcl 4 Mg Tablet 4 Mg PO PRN Q4HRS PRN Nystatin 15 Gm Powder 1 Sam TP PRN TID PRN Nitrostat (Nitroglycerin) 0.4 Mg Tab.subl 0.4 Mg SL PRN Q5MIN PRN MDD 3tabs Melatonin 5 Mg Tablet (Melatonin/Pyridoxine) 1 Each Tablet 6 Mg PO QHS Loperamide (Loperamide Hcl) 2 Mg Tablet 2 Mg PO PRN Q4HRS PRN MDD 16mg Keppra (Levetiracetam) 500 Mg Tablet 500 Mg PO BID Ferrous Sulfate 325 Mg Tablet 325 Mg PO DAILY Neurontin (Gabapentin) 300 Mg Capsule 300 Mg PO TID Voltaren (Diclofenac Sodium) 100 Gm Gel..gram. 4 Gm TP PRN QID PRN Budesonide 0.5 Mg/2 Ml Ampul.neb 0.5 Mg NEB PRN BID PRN Dicyclomine Hcl 10 Mg Capsule 10 Mg PO PRN Q8HRS PRN Artificial Tears Eye Drops (Dextran 70/Hypromellose) 15 Ml Drops 1 Drop OU TID PRN Anusol-Hc (Hydrocortisone Acetate) 25 Mg Supp.rect 25 Mg RC PRN Q12HR PRN Anusol-Hc (Hydrocortisone) 30 Gm Cream..g. 1 Sam RC PRN Q24HRS PRN Norvasc (Amlodipine Besylate) 10 Mg Tablet 10 Mg PO DAILY Alprazolam 0.5 Mg Tablet 0.5 Mg PO HS Tylenol (Acetaminophen) 325 Mg Tablet 650 Mg PO PRN Q6HRS PRN Albuterol Sulfate Neb Soln (Albuterol Sulfate) 2.5 Mg/3 Ml Vial.neb 2.5 Mg NEB PRN Q4HRS PRN Milk Of Magnesia (Magnesium Hydroxide) 400 Mg/5 Ml Oral.susp 2,400 Mg PO PRN QHS PRN Actos (Pioglitazone Hcl) 15 Mg Tablet 15 Mg PO DAILYWBKFT I have reviewed the current psychotropics carefully including drug interactions. Risk benefit ratio favors no change other than as noted in my dictated progress note. Diagnosis: Problems: (1) Anxiety disorder (2) Impulse control disorder (3) Major depressive disorder, recurrent episode (4) Mild cognitive impairment BEA SAWANT MD Apr 02, 2018 22:49
[2018-04-03 06:32] VITALS: BP 150/78
[2018-04-03] MEDS: INSULIN LISPRO 300 UNITS/3 ML INSULN.PEN. SQ SCH ×4 (08:00→20:38)
[2018-04-03 08:16] LABS: BASO % 1 % (0-3); EOS # 0.2 x10^3/uL (0.0-0.7); EOS % 3 % (0-3); HEMATOCRIT 27.1 % (36.0-47.0); LYMPH # 2.1 x10^3/uL (1.0-4.8); LYMPH % 32 % (24-48); MEAN CORPUSCULAR HEMOGLOBIN 28 pg (25-35); MEAN CORPUSCULAR HGB CONC 33 g/dL (31-37); MEAN CORPUSCULAR VOLUME 84 fL (79-100); MONO # 0.4 x10^3/uL (0.0-1.1); MONO % 7 % (0-9); NEUT # 3.8 x10^3uL (1.8-7.7); NEUT % 59 % (31-73); PLATELET COUNT 235 x10^3/uL (140-400); RED BLOOD COUNT 3.23 x10^6/uL (3.50-5.40); RED CELL DISTRIBUTION WIDTH 16.2 % (11.5-14.5); WHITE BLOOD COUNT 6.6 x10^3/uL (4.0-11.0)
[2018-04-03 08:34] LABS: ALBUMIN 2.8 g/dL (3.4-5.0); ALBUMIN/GLOBULIN RATIO 0.7 (1.0-1.7); CALCIUM 9.1 mg/dL (8.5-10.1); CREATININE 1.2 mg/dL (0.6-1.0); GFR 53.4; POTASSIUM 4.7 mmol/L (3.5-5.1); TOTAL BILIRUBIN 0.3 mg/dL (0.2-1.0); TOTAL PROTEIN 7.1 g/dL (6.4-8.2)
[2018-04-03] MEDS: OXcarbazepine 150 MG TABLET. PO SCH ×2 (09:52→13:00)
[2018-04-03] MEDS: levETIRAcetam 500 MG TABLET PO SCH ×2 (09:52→20:31)
[2018-04-03] MEDS: ASCORBIC ACID 500 MG TABLET PO SCH (09:52)
[2018-04-03] MEDS: FAMOTIDINE 20 MG TABLET PO SCH (09:52)
[2018-04-03] MEDS: amLODIPine BESYLATE 10 MG TABLET PO SCH (09:52)
[2018-04-03] MEDS: FERROUS SULFATE 325 MG TABLET. PO SCH (09:52)
[2018-04-03] MEDS: PIOGLITAZONE 15 MG TABLET. PO SCH (09:52)
[2018-04-03] MEDS: DULoxetine HCL 60 MG CAPSULE.DR PO SCH (09:52)
[2018-04-03] MEDS: GABAPENTIN 300 MG CAPSULE. PO SCH ×2 (09:52→20:31)
[2018-04-03] MEDS: oxyCODONE/APAP 10/325 1 TAB TABLET PO SCH ×2 (09:59→20:31)
[2018-04-03] MEDS: BUDESONIDE 0.5 MG/2 ML NEBU NEB SCH ×2 (10:12→20:07)
[2018-04-03 16:17] VITALS: BP 131/72
[2018-04-03] MEDS: MELATONIN 3 MG TABLET PO SCH (20:31)
[2018-04-03] MEDS: MIRTAZAPINE 7.5 MG TABLET. PO SCH (20:31)
--- NOTE | 2018-04-03 20:58 | PDOC ---
Exam Note: Neal Note: Please also refer to the separate dictated note~for this date of service dictated separately.~Patient seen individually. Discussed the patient with Nursing staff reviewed the chart.~Reviewed interim history and current functioning. Reviewed vital signs,~Labs/ Radiology~and current medications noted below. Continue current treatment with the changes noted in the dictated addendum note Assessment: Vital Signs: Vital Signs Date Time Temp Pulse Resp B/P (MAP) Pulse Ox O2 Delivery O2 Flow Rate FiO2 04/03/18 20:10 100 Room Air 04/03/18 16:17 97.9 77 20 131/72 (91) I&O Intake and Output 04/03/18 07:00 Intake Total 1200 ml Balance 1200 ml Intake Oral 1200 ml # Voids 1 Labs: Laboratory Tests Test 04/03/18 07:06 04/03/18 07:50 04/03/18 11:30 04/03/18 16:25 Glucose (Fingerstick) 142 mg/dL (70-99) H 162 mg/dL (70-99) H 300 mg/dL (70-99) H White Blood Count 6.6 x10^3/uL (4.0-11.0) Red Blood Count 3.23 x10^6/uL (3.50-5.40) L Hemoglobin 9.0 g/dL (12.0-15.5) L Hematocrit 27.1 % (36.0-47.0) L Mean Corpuscular Volume 84 fL (79-100) Mean Corpuscular Hemoglobin 28 pg (25-35) Mean Corpuscular Hemoglobin Concent 33 g/dL (31-37) Red Cell Distribution Width 16.2 % (11.5-14.5) H Platelet Count 235 x10^3/uL (140-400) Neutrophils (%) (Auto) 59 % (31-73) Lymphocytes (%) (Auto) 32 % (24-48) Monocytes (%) (Auto) 7 % (0-9) Eosinophils (%) (Auto) 3 % (0-3) Basophils (%) (Auto) 1 % (0-3) Neutrophils # (Auto) 3.8 x10^3uL (1.8-7.7) Lymphocytes # (Auto) 2.1 x10^3/uL (1.0-4.8) Monocytes # (Auto) 0.4 x10^3/uL (0.0-1.1) Eosinophils # (Auto) 0.2 x10^3/uL (0.0-0.7) Basophils # (Auto) 0.0 x10^3/uL (0.0-0.2) Sodium Level 140 mmol/L (136-145) Potassium Level 4.7 mmol/L (3.5-5.1) Chloride Level 106 mmol/L (98-107) Carbon Dioxide Level 29 mmol/L (21-32) Anion Gap 5 (6-14) L Blood Urea Nitrogen 26 mg/dL (7-20) H Creatinine 1.2 mg/dL (0.6-1.0) H Estimated GFR (Cockcroft-Gault) 53.4 BUN/Creatinine Ratio 22 (6-20) H Glucose Level 150 mg/dL (70-99) H Calcium Level 9.1 mg/dL (8.5-10.1) Total Bilirubin 0.3 mg/dL (0.2-1.0) Aspartate Amino Transferase (AST) 13 U/L (15-37) L Alanine Aminotransferase (ALT) 17 U/L (14-59) Alkaline Phosphatase 88 U/L (46-116) Total Protein 7.1 g/dL (6.4-8.2) Albumin 2.8 g/dL (3.4-5.0) L Albumin/Globulin Ratio 0.7 (1.0-1.7) L Test 04/03/18 19:15 Glucose (Fingerstick) 266 mg/dL (70-99) H Current Medications: Meds: Current Medications Acetaminophen (Tylenol) 1,000 mg 1X ONCE PO Last administered on 02/22/18at 03: 05; Start 02/22/18 at 03:30; Stop 02/22/18 at 03:31; Status DC Alprazolam (Xanax) 0.5 mg QHS PO Last administered on 03/11/18at 19:50; Start at 21:00; Stop 03/12/18 at 18:14; Status DC Duloxetine HCl (Cymbalta) 60 mg DAILY PO Last administered on 04/03/18at 09:52; Start 02/22/18 at 09:00 Melatonin 6 mg QHS PO Last administered on 04/03/18 20:31; Start 02/22/18 at 21:00 Risperidone (RisperDAL) 0.25 mg BID PO Last administered on 02/23/18at 08:51; Start 02/22/18 at 09:00; Stop 02/23/18 at 13:23; Status DC Acetaminophen (Tylenol) 650 mg PRN Q6HRS PRN PO PAIN / TEMP Last administered on 03/28/18 06:12; Start 02/22/18 at 05:00 Albuterol Sulfate (Ventolin) 2.5 mg PRN Q4HRS PRN NEB Dyspnea; Start 02/22/18 at 05:00 Diclofenac Sodium (Voltaren) 4 sam PRN QID PRN TP R Knee Pain Last administered on 04/02/18 20:17; Start 02/22/18 at 05:00 Dicyclomine HCl (Bentyl) 10 mg PRN Q8HRS PRN PO Bowel Cramps; Start 02/22/18 at 05:00 Ferrous Sulfate (Feosol) 325 mg DAILY PO Last administered on 04/03/18at 09:52; Start 02/22/18 at 09:00 Gabapentin (Neurontin) 300 mg BID PO Last administered on 04/03/18 20:31; Start 02/22/18 at 09:00 Hydrocortisone (Proctosol-Hc) 1 sam PRN Q24HRS PRN RC Hemorrhoids; Start at 05:00 Insulin Aspart (NovoLOG) BS 200-2,50= 2 un... TIDWMEALHC SQ ; Start 02/22/18 at 08:00; Stop 02/22/18 at 08:01; Status DC Al Hydroxide/Mg Hydroxide (Mylanta Plus Xs) 15 ml PRN AFTMEALHC PRN PO DYSPEPSIA Last administered on 03/20/18at 04:14; Start 02/22/18 at 05:00 Magnesium Hydroxide (Milk Of Magnesia) 2,400 mg PRN QHS PRN PO CONSTIPATION Last administered on 03/20/18at 08:23; Start 02/22/18 at 05:00 Nitroglycerin (Nitrostat) 0.4 mg PRN Q5MIN PRN SL CHEST PAIN; Start 02/22/18 at 05:00 Nystatin (Nystop) 1 sam PRN TID PRN TP REDNESS; Start 02/22/18 at 05:00 Oxycodone/ Acetaminophen (Percocet 10/325) 1 tab BID PO Last administered on 20:31; Start 02/22/18 at 09:00 Oxycodone/ Acetaminophen (Percocet 10/325) 1 tab PRN Q4HRS PRN PO PAIN Last administered on 03/17/18 17:39; Start 02/22/18 at 05:00 Amlodipine Besylate (Norvasc) 10 mg DAILY PO Last administered on 04/03/18 09: 52; Start 02/22/18 at 09:00 Ascorbic Acid (Vitamin C) 500 mg DAILY PO Last administered on 04/03/18 09:52 ; Start 02/22/18 at 09:00 Budesonide (Pulmicort) 0.5 mg RTBID NEB Last administered on 04/03/18 20:07; Start 02/22/18 at 08:00 Celecoxib (CeleBREX) 100 mg BID PO Last administered on 03/04/18 07:58; Start 02/22/18 at 09:00; Stop 03/04/18 at 17:39; Status DC Artificial Tears (Artificial Tears) 1 drop TID PRN PRN OU DRY EYE; Start at 05:30 Famotidine (Pepcid) 20 mg DAILY PO Last administered on 04/03/18 09:52; Start 02/22/18 at 09:00 Guaifenesin (Robitussin Dm) 10 ml PRN Q4HRS PRN PO COUGH; Start 02/22/18 at 05: 30 Hydrocortisone Acetate (Anucort-Hc) 25 mg PRN Q12HR PRN [place] RECTAL PAIN; Start 02/22/18 at 05:30 Levetiracetam (Keppra) 500 mg BID PO Last administered on 04/03/18 20:31; Start 02/22/18 at 09:00 Loperamide HCl (Imodium) 2 mg PRN Q4HRS PRN PO DIARRHEA; Start 02/22/18 at 05: 30 Ondansetron HCl (Zofran Odt) 4 mg PRN Q4HRS PRN PO NAUSEA/VOMITING; Start 02/22 at 05:30 Pioglitazone HCl (Actos) 15 mg DAILY PO Last administered on 04/03/18 09:52; Start 02/22/18 at 09:00 Multi-Ingredient Ointment (Analgesic Cook) 1 sam PRN QID PRN TP MUSCLE PAIN; Start 02/22/18 at 05:00 Insulin Human Lispro (HumaLOG) TIDWMEALHC SQ Last administered on 04/03/18 20 :38; Start 02/22/18 at 08:00 Mirtazapine (Remeron) 7.5 mg QHS PO Last administered on 04/03/18 20:31; Start 02/22/18 at 21:00 Risperidone (RisperDAL) 0.375 mg BID PO Last administered on 02/26/18at 11:50; Start 02/23/18 at 21:00; Stop 02/26/18 at 19:49; Status DC Olanzapine (ZyPREXA ZYDIS) 5 mg PRN Q2HR PRN PO PSYCHOSIS Last administered on 03/18/18 07:53; Start 02/23/18 at 19:45 Divalproex Sodium (Depakote Sprinkles) 125 mg TID@0900,1300,1700 PO Last administered on 03/01/18 17:39; Start 02/26/18 at 09:00; Stop 03/01/18 at 18:29 ; Status DC Risperidone (RisperDAL) 0.5 mg BID PO Last administered on 03/01/18at 10:17; Start 02/26/18 at 21:00; Stop 03/01/18 at 18:29; Status DC Divalproex Sodium (Depakote Sprinkles) 250 mg TID@0900,1300,1700 PO Last administered on 03/04/18at 17:59; Start 03/02/18 at 09:00; Stop 03/04/18 at 19:22 ; Status DC Risperidone (RisperDAL) 0.75 mg BID PO Last administered on 03/13/18 07:42; Start 03/01/18 at 21:00; Stop 03/13/18 at 15:04; Status DC Divalproex Sodium (Depakote Er) 1,000 mg QHS PO Last administered on 03/06/18at 19:17; Start 03/04/18 at 21:00; Stop 03/07/18 at 19:54; Status DC Divalproex Sodium (Depakote Er) 1,000 mg QHS PO Last administered on 03/14/18 21:12; Start 03/07/18 at 21:00; Stop 03/15/18 at 18:49; Status DC Divalproex Sodium (Depakote Er) 250 mg QHS PO Last administered on 03/14/18at 21: 12; Start 03/07/18 at 21:00; Stop 03/15/18 at 18:49; Status DC Alprazolam (Xanax) 0.25 mg QHS PO Last administered on 03/27/18at 19:46; Start 03/13/18 at 21:00; Stop 03/27/18 at 23:00; Status DC Risperidone (RisperDAL) 0.75 mg HS PO Last administered on 03/14/18at 21:12; Start 03/13/18 at 21:00; Stop 03/15/18 at 18:49; Status DC Oxcarbazepine (Trileptal) 150 mg BID PO Last administered on 03/27/18at 19:45; Start 03/18/18 at 21:00; Stop 03/28/18 at 01:05; Status DC Oxcarbazepine (Trileptal) 150 mg BID@0900,1300 PO Last administered on at 13:00; Start 03/28/18 at 09:00 Active Scripts Active Reported Artificial Tears Eye Drops (Dextran 70/Hypromellose) 15 Ml Drops 1 Drop EACHEYE PRN TID PRN Trileptal (Oxcarbazepine) 150 Mg Tablet 150 Mg PO BID@0900,1300 Zyprexa (Olanzapine) 5 Mg Tablet 5 Mg PO PRN Q2HR PRN Mirtazapine 15 Mg Tablet 7.5 Mg PO QHS Remeron (Mirtazapine) 15 Mg Tablet 15 Mg PO Analgesic Cook (Methyl Salicylate/Menthol) 28 Gm Oint...g. 1 Gm TP PRN QID PRN Proctosol-Hc (Hydrocortisone) 28.35 Gm Cream..g. 1 Sam RC PRN Q24HRS PRN Vitamin C (Ascorbic Acid) 500 Mg Capsule 500 Mg PO DAILY Novolog Flexpen (Insulin Aspart) 100 Unit/1 Ml Insuln.pen 2-10 Units SQ TIDWMEALHC Risperdal (Risperidone) 0.25 Mg Tablet 0.25 Mg BID Cymbalta (Duloxetine Hcl) 60 Mg Capsule.dr 60 Mg PO DAILY Famotidine 20 Mg Tablet 20 Mg PO BID Mag-Al Plus Xs Suspension (Mag Hydrox/Al Hydrox/Simeth) 30 Ml Oral.susp 15 Ml PO PRN AFTMEALHC PRN Celebrex (Celecoxib) 100 Mg Capsule 100 Mg PO BID Vitamin C (Ascorbate Calcium) 500 Mg Tablet 500 Mg PO DAILY Robitussin Cough-Chest Dm Liq (Guaifenesin/Dextromethorphan) 237 Ml Liquid 10 Ml PO PRN Q4HRS PRN Percocet 10-325 Mg Tablet (Oxycodone Hcl/Acetaminophen) 1 Each Tablet 1 Tab PO PRN Q4HRS PRN Percocet 10-325 Mg Tablet (Oxycodone Hcl/Acetaminophen) 1 Each Tablet 1 Tab PO BID Ondansetron Hcl 4 Mg Tablet 4 Mg PO PRN Q4HRS PRN Nystatin 15 Gm Powder 1 Sam TP PRN TID PRN Nitrostat (Nitroglycerin) 0.4 Mg Tab.subl 0.4 Mg SL PRN Q5MIN PRN MDD 3tabs Melatonin 5 Mg Tablet (Melatonin/Pyridoxine) 1 Each Tablet 6 Mg PO QHS Loperamide (Loperamide Hcl) 2 Mg Tablet 2 Mg PO PRN Q4HRS PRN MDD 16mg Keppra (Levetiracetam) 500 Mg Tablet 500 Mg PO BID Ferrous Sulfate 325 Mg Tablet 325 Mg PO DAILY Neurontin (Gabapentin) 300 Mg Capsule 300 Mg PO TID Voltaren (Diclofenac Sodium) 100 Gm Gel..gram. 4 Gm TP PRN QID PRN Budesonide 0.5 Mg/2 Ml Ampul.neb 0.5 Mg NEB PRN BID PRN Dicyclomine Hcl 10 Mg Capsule 10 Mg PO PRN Q8HRS PRN Artificial Tears Eye Drops (Dextran 70/Hypromellose) 15 Ml Drops 1 Drop OU TID PRN Anusol-Hc (Hydrocortisone Acetate) 25 Mg Supp.rect 25 Mg RC PRN Q12HR PRN Anusol-Hc (Hydrocortisone) 30 Gm Cream..g. 1 Sam RC PRN Q24HRS PRN Norvasc (Amlodipine Besylate) 10 Mg Tablet 10 Mg PO DAILY Alprazolam 0.5 Mg Tablet 0.5 Mg PO HS Tylenol (Acetaminophen) 325 Mg Tablet 650 Mg PO PRN Q6HRS PRN Albuterol Sulfate Neb Soln (Albuterol Sulfate) 2.5 Mg/3 Ml Vial.neb 2.5 Mg NEB PRN Q4HRS PRN Milk Of Magnesia (Magnesium Hydroxide) 400 Mg/5 Ml Oral.susp 2,400 Mg PO PRN QHS PRN Actos (Pioglitazone Hcl) 15 Mg Tablet 15 Mg PO [id number] I have reviewed the current psychotropics carefully including drug interactions. Risk benefit ratio favors no change other than as noted in my dictated progress note. Diagnosis: Problems: (1) Anxiety disorder (2) Impulse control disorder (3) Major depressive disorder, recurrent episode (4) Mild cognitive impairment EBA SAWANT MD Apr 03, 2018 20:58
--- NOTE | 2018-04-03 22:54 | PN ---
DATE: 04/02/2018 This is a late entry for 04/02/2018 covers elements not covered in my initial note of 04/02/2018. SUBJECTIVE: I met with the patient in the evening. Overall, cognitively, the patient seems clearer, ambulates with a walker. REVIEW OF SYSTEMS: No CV, , pulmonary, eye, ENT system symptoms on review. MENTAL STATUS EXAM: Oriented to herself and situation. Speech has some latency, coherent. Abstraction fair, computation impaired, language function intact. Mood and affect was improved. Cognitively, again more alert. LABORATORY DATA: Reviewed. IMPRESSION: Unchanged from initial note. PLAN: No change from initial note. MAN Farrah SAWANT MD DR: MARK/daphne JOB#: [id number] / [id number]
--- NOTE | 2018-04-03 23:30 | PN ---
DATE: 04/03/2018 This note covers elements not covered in my initial note of 04/03/2018. SUBJECTIVE: I met with the patient in the evening. The patient slept 6 hours previous evening, has been cooperative with medications, compliant, interactive. REVIEW OF SYSTEMS: Positive for impaired ambulation, in wheelchair and with neck pain. No CV, , pulmonary, eye system symptoms on review. MENTAL STATUS EXAM: Oriented to herself and situation. Speech moderate latency, often responses monosyllabic. Abstraction fair, computation impaired, language function intact. Mood and affect is improved as mentioned in my initial note. PLAN: Continue current psychotropics. Adjust as clinically indicated. MAN Farrah SAWANT MD DR: MARK/daphne JOB#: [id number] / [id number]
--- NOTE | 2018-04-04 02:16 | PN ---
DATE: 04/01/2018 This is a late entry, 04/01/2018, covers the elements not covered in my initial note. SUBJECTIVE: I met with the patient in the evening. Overall, the patient is much more coherent and appropriate. She has been less irritable, less labile. Does complain of some neck pain and impaired ambulation with walker, but ambulating better than she was a day or 2 back. REVIEW OF SYSTEMS: No CV, , pulmonary, eye, ENT system symptoms on review. MENTAL STATUS EXAM: Oriented to herself and situation. Speech is coherent, abstraction fair, computation impaired, language function intact. Mood and affect is improved. LABORATORY DATA: Reviewed. IMPRESSION: Unchanged from initial note. PLAN: Continue current psychotropics from initial note. MAN Farrah SAWANT MD DR: MARK/daphne JOB#: [id number] / [id number]
[2018-04-04 06:03] VITALS: BP 138/59
[2018-04-04] MEDS: INSULIN LISPRO 300 UNITS/3 ML INSULN.PEN. SQ SCH ×2 (08:00→12:00)
[2018-04-04] MEDS: PIOGLITAZONE 15 MG TABLET. PO SCH (09:10)
[2018-04-04] MEDS: FERROUS SULFATE 325 MG TABLET. PO SCH (09:10)
[2018-04-04] MEDS: GABAPENTIN 300 MG CAPSULE. PO SCH (09:10)
[2018-04-04] MEDS: levETIRAcetam 500 MG TABLET PO SCH (09:10)
[2018-04-04] MEDS: DULoxetine HCL 60 MG CAPSULE.DR PO SCH (09:10)
[2018-04-04 09:13] VITALS: BP 138/59
[2018-04-04] MEDS: amLODIPine BESYLATE 10 MG TABLET PO SCH (09:13)
[2018-04-04] MEDS: ASCORBIC ACID 500 MG TABLET PO SCH (09:14)
[2018-04-04] MEDS: FAMOTIDINE 20 MG TABLET PO SCH (09:14)
[2018-04-04] MEDS: OXcarbazepine 150 MG TABLET. PO SCH ×2 (09:14→12:22)
[2018-04-04] MEDS: oxyCODONE/APAP 10/325 1 TAB TABLET PO SCH (09:16)
[2018-04-04] MEDS: BUDESONIDE 0.5 MG/2 ML NEBU NEB SCH (11:24)
--- NOTE | 2018-04-04 18:26 | PDOC ---
Exam Note: Neal Note: Please also refer to the separate dictated note~for this date of service dictated separately.~Patient seen individually. Discussed the patient with Nursing staff reviewed the chart.~Reviewed interim history and current functioning. Reviewed vital signs,~Labs/ Radiology~and current medications noted below. Continue current treatment with the changes noted in the dictated addendum note Assessment: Vital Signs: Vital Signs Date Time Temp Pulse Resp B/P (MAP) Pulse Ox O2 Delivery O2 Flow Rate FiO2 04/04/18 11:24 96 Room Air 04/04/18 09:13 66 138/59 04/04/18 06:03 97.8 16 I&O Intake and Output 04/04/18 07:01 Intake Total 720 ml Balance 720 ml Intake Oral 720 ml # Bowel Movements 1 Labs: Laboratory Tests Test 04/03/18 19:15 04/04/18 08:01 04/04/18 11:23 Glucose (Fingerstick) 266 mg/dL (70-99) H 130 mg/dL (70-99) H 148 mg/dL (70-99) H Current Medications: Meds: Current Medications Acetaminophen (Tylenol) 1,000 mg 1X ONCE PO Last administered on 02/22/18at 03: 05; Start 02/22/18 at 03:30; Stop 02/22/18 at 03:31; Status DC Alprazolam (Xanax) 0.5 mg QHS PO Last administered on 03/11/18at 19:50; Start at 21:00; Stop 03/12/18 at 18:14; Status DC Duloxetine HCl (Cymbalta) 60 mg DAILY PO Last administered on 04/04/18at 09:10; Start 02/22/18 at 09:00; Stop 04/04/18 at 14:33; Status DC Melatonin 6 mg QHS PO Last administered on 04/03/18at 20:31; Start 02/22/18 at 21:00; Stop 04/04/18 at 14:33; Status DC Risperidone (RisperDAL) 0.25 mg BID PO Last administered on 02/23/18at 08:51; Start 02/22/18 at 09:00; Stop 02/23/18 at 13:23; Status DC Acetaminophen (Tylenol) 650 mg PRN Q6HRS PRN PO PAIN / TEMP Last administered on 03/28/18at 06:12; Start 02/22/18 at 05:00; Stop 04/04/18 at 14:33; Status DC Albuterol Sulfate (Ventolin) 2.5 mg PRN Q4HRS PRN NEB Dyspnea; Start 02/22/18 at 05:00; Stop 04/04/18 at 14:33; Status DC Diclofenac Sodium (Voltaren) 4 sam PRN QID PRN TP R Knee Pain Last administered on 04/02/18at 20:17; Start 02/22/18 at 05:00; Stop 04/04/18 at 14:33 ; Status DC Dicyclomine HCl (Bentyl) 10 mg PRN Q8HRS PRN PO Bowel Cramps; Start 02/22/18 at 05:00; Stop 04/04/18 at 14:33; Status DC Ferrous Sulfate (Feosol) 325 mg DAILY PO Last administered on 04/04/18at 09:10; Start 02/22/18 at 09:00; Stop 04/04/18 at 14:33; Status DC Gabapentin (Neurontin) 300 mg BID PO Last administered on 04/04/18at 09:10; Start 02/22/18 at 09:00; Stop 04/04/18 at 14:33; Status DC Hydrocortisone (Proctosol-Hc) 1 sam PRN Q24HRS PRN RC Hemorrhoids; Start at 05:00; Stop 04/04/18 at 14:33; Status DC Insulin Aspart (NovoLOG) BS 200-2,50= 2 un... TIDWMEALHC SQ ; Start 02/22/18 at 08:00; Stop 02/22/18 at 08:01; Status DC Al Hydroxide/Mg Hydroxide (Mylanta Plus Xs) 15 ml PRN AFTMEALHC PRN PO DYSPEPSIA Last administered on 03/20/18at 04:14; Start 02/22/18 at 05:00; Stop at 14:33; Status DC Magnesium Hydroxide (Milk Of Magnesia) 2,400 mg PRN QHS PRN PO CONSTIPATION Last administered on 03/20/18at 08:23; Start 02/22/18 at 05:00; Stop 04/04/18 at 14:33; Status DC Nitroglycerin (Nitrostat) 0.4 mg PRN Q5MIN PRN SL CHEST PAIN; Start 02/22/18 at 05:00; Stop 04/04/18 at 14:33; Status DC Nystatin (Nystop) 1 sam PRN TID PRN TP REDNESS; Start 02/22/18 at 05:00; Stop 04/04/18 at 14:33; Status DC Oxycodone/ Acetaminophen (Percocet 10/325) 1 tab BID PO Last administered on at 09:16; Start 02/22/18 at 09:00; Stop 04/04/18 at 14:33; Status DC Oxycodone/ Acetaminophen (Percocet 10/325) 1 tab PRN Q4HRS PRN PO PAIN Last administered on 03/17/18at 17:39; Start 02/22/18 at 05:00; Stop 04/04/18 at 14:33 ; Status DC Amlodipine Besylate (Norvasc) 10 mg DAILY PO Last administered on 04/04/18at 09: 13; Start 02/22/18 at 09:00; Stop 04/04/18 at 14:33; Status DC Ascorbic Acid (Vitamin C) 500 mg DAILY PO Last administered on 04/04/18at 09:14 ; Start 02/22/18 at 09:00; Stop 04/04/18 at 14:33; Status DC Budesonide (Pulmicort) 0.5 mg RTBID NEB Last administered on 04/04/18at 11:24; Start 02/22/18 at 08:00; Stop 04/04/18 at 14:33; Status DC Celecoxib (CeleBREX) 100 mg BID PO Last administered on 03/04/18at 07:58; Start 02/22/18 at 09:00; Stop 03/04/18 at 17:39; Status DC Artificial Tears (Artificial Tears) 1 drop TID PRN PRN OU DRY EYE; Start at 05:30; Stop 04/04/18 at 14:33; Status DC Famotidine (Pepcid) 20 mg DAILY PO Last administered on 04/04/18at 09:14; Start 02/22/18 at 09:00; Stop 04/04/18 at 14:33; Status DC Guaifenesin (Robitussin Dm) 10 ml PRN Q4HRS PRN PO COUGH; Start 02/22/18 at 05: 30; Stop 04/04/18 at 14:33; Status DC Hydrocortisone Acetate (Anucort-Hc) 25 mg PRN Q12HR PRN [place] RECTAL PAIN; Start 02/22/18 at 05:30; Stop 04/04/18 at 14:33; Status DC Levetiracetam (Keppra) 500 mg BID PO Last administered on 04/04/18at 09:10; Start 02/22/18 at 09:00; Stop 04/04/18 at 14:33; Status DC Loperamide HCl (Imodium) 2 mg PRN Q4HRS PRN PO DIARRHEA; Start 02/22/18 at 05: 30; Stop 04/04/18 at 14:33; Status DC Ondansetron HCl (Zofran Odt) 4 mg PRN Q4HRS PRN PO NAUSEA/VOMITING; Start 02/22 at 05:30; Stop 04/04/18 at 14:33; Status DC Pioglitazone HCl (Actos) 15 mg DAILY PO Last administered on 04/04/18at 09:10; Start 02/22/18 at 09:00; Stop 04/04/18 at 14:33; Status DC Multi-Ingredient Ointment (Analgesic Maynard) 1 sam PRN QID PRN TP MUSCLE PAIN; Start 02/22/18 at 05:00; Stop 04/04/18 at 14:33; Status DC Insulin Human Lispro (HumaLOG) TIDWMEALHC SQ Last administered on 04/03/18at 20 :38; Start 02/22/18 at 08:00; Stop 04/04/18 at 14:33; Status DC Mirtazapine (Remeron) 7.5 mg QHS PO Last administered on 04/03/18at 20:31; Start 02/22/18 at 21:00; Stop 04/04/18 at 14:33; Status DC Risperidone (RisperDAL) 0.375 mg BID PO Last administered on 02/26/18at 11:50; Start 02/23/18 at 21:00; Stop 02/26/18 at 19:49; Status DC Olanzapine (ZyPREXA ZYDIS) 5 mg PRN Q2HR PRN PO PSYCHOSIS Last administered on 03/18/18 07:53; Start 02/23/18 at 19:45; Stop 04/04/18 at 14:33; Status DC Divalproex Sodium (Depakote Sprinkles) 125 mg TID@0900,1300,1700 PO Last administered on 03/01/18at 17:39; Start 02/26/18 at 09:00; Stop 03/01/18 at 18:29 ; Status DC Risperidone (RisperDAL) 0.5 mg BID PO Last administered on 03/01/18at 10:17; Start 02/26/18 at 21:00; Stop 03/01/18 at 18:29; Status DC Divalproex Sodium (Depakote Sprinkles) 250 mg TID@0900,1300,1700 PO Last administered on 03/04/18at 17:59; Start 03/02/18 at 09:00; Stop 03/04/18 at 19:22 ; Status DC Risperidone (RisperDAL) 0.75 mg BID PO Last administered on 03/13/18at 07:42; Start 03/01/18 at 21:00; Stop 03/13/18 at 15:04; Status DC Divalproex Sodium (Depakote Er) 1,000 mg QHS PO Last administered on 03/06/18at 19:17; Start 03/04/18 at 21:00; Stop 03/07/18 at 19:54; Status DC Divalproex Sodium (Depakote Er) 1,000 mg QHS PO Last administered on 03/14/18at 21:12; Start 03/07/18 at 21:00; Stop 03/15/18 at 18:49; Status DC Divalproex Sodium (Depakote Er) 250 mg QHS PO Last administered on 03/14/18at 21: 12; Start 03/07/18 at 21:00; Stop 03/15/18 at 18:49; Status DC Alprazolam (Xanax) 0.25 mg QHS PO Last administered on 03/27/18at 19:46; Start 03/13/18 at 21:00; Stop 03/27/18 at 23:00; Status DC Risperidone (RisperDAL) 0.75 mg HS PO Last administered on 03/14/18at 21:12; Start 03/13/18 at 21:00; Stop 03/15/18 at 18:49; Status DC Oxcarbazepine (Trileptal) 150 mg BID PO Last administered on 03/27/18at 19:45; Start 03/18/18 at 21:00; Stop 03/28/18 at 01:05; Status DC Oxcarbazepine (Trileptal) 150 mg BID@0900,1300 PO Last administered on at 12:22; Start 03/28/18 at 09:00; Stop 04/04/18 at 14:33; Status DC Active Scripts Active Reported Artificial Tears Eye Drops (Dextran 70/Hypromellose) 15 Ml Drops 1 Drop EACHEYE PRN TID PRN Trileptal (Oxcarbazepine) 150 Mg Tablet 150 Mg PO BID@0900,1300 Mirtazapine 15 Mg Tablet 7.5 Mg PO QHS Analgesic Maynard (Methyl Salicylate/Menthol) 28 Gm Oint...g. 1 Gm TP PRN QID PRN Proctosol-Hc (Hydrocortisone) 28.35 Gm Cream..g. 1 Sam RC PRN Q24HRS PRN Vitamin C (Ascorbic Acid) 500 Mg Capsule 500 Mg PO DAILY Novolog Flexpen (Insulin Aspart) 100 Unit/1 Ml Insuln.pen 2-10 Units SQ TIDWMEALHC BS 200-250 2 units BS 251-300 4 units BS 301-350 8 units BS 351-400 10 units BS >400 CALL Cymbalta (Duloxetine Hcl) 60 Mg Capsule.dr 60 Mg PO DAILY Famotidine 20 Mg Tablet 20 Mg PO DAILY Mag-Al Plus Xs Suspension (Mag Hydrox/Al Hydrox/Simeth) 30 Ml Oral.susp 15 Ml PO PRN AFTMEALHC PRN Robitussin Cough-Chest Dm Liq (Guaifenesin/Dextromethorphan) 237 Ml Liquid 10 Ml PO PRN Q4HRS PRN Percocet 10-325 Mg Tablet (Oxycodone Hcl/Acetaminophen) 1 Each Tablet 1 Tab PO PRN Q4HRS PRN Percocet 10-325 Mg Tablet (Oxycodone Hcl/Acetaminophen) 1 Each Tablet 1 Tab PO BID Ondansetron Hcl 4 Mg Tablet 4 Mg PO PRN Q4HRS PRN Nystatin 15 Gm Powder 1 Sam TP PRN TID PRN Nitrostat (Nitroglycerin) 0.4 Mg Tab.subl 0.4 Mg SL PRN Q5MIN PRN HOld for SBP less than or equal to 90mmHG. Call Provider for shest pain unrelieved by 1 sublingual nitro, may repeat x2 if chest pain persists. Melatonin 5 Mg Tablet (Melatonin/Pyridoxine) 1 Each Tablet 6 Mg PO QHS Loperamide (Loperamide Hcl) 2 Mg Tablet 2 Mg PO PRN Q4HRS PRN MDD 16mg Keppra (Levetiracetam) 500 Mg Tablet 500 Mg PO BID Ferrous Sulfate 325 Mg Tablet 325 Mg PO DAILY Neurontin (Gabapentin) 300 Mg Capsule 300 Mg PO BID Voltaren (Diclofenac Sodium) 100 Gm Gel..gram. 4 Sam TP PRN QID PRN Budesonide 0.5 Mg/2 Ml Ampul.neb 0.5 Mg NEB RTBID Dicyclomine Hcl 10 Mg Capsule 10 Mg PO PRN Q8HRS PRN Artificial Tears Eye Drops (Dextran 70/Hypromellose) 15 Ml Drops 1 Drop OU TID PRN Anusol-Hc (Hydrocortisone Acetate) 25 Mg Supp.rect 25 Mg RC PRN Q12HR PRN Norvasc (Amlodipine Besylate) 10 Mg Tablet 10 Mg PO DAILY Tylenol (Acetaminophen) 325 Mg Tablet 650 Mg PO PRN Q6HRS PRN Max acetaminophen dose os 4000mg/24hrs from all sources Albuterol Sulfate Neb Soln (Albuterol Sulfate) 2.5 Mg/3 Ml Vial.neb 2.5 Mg NEB PRN Q4HRS PRN Milk Of Magnesia (Magnesium Hydroxide) 400 Mg/5 Ml Oral.susp 2,400 Mg PO PRN QHS PRN Actos (Pioglitazone Hcl) 15 Mg Tablet 15 Mg PO DAILY I have reviewed the current psychotropics carefully including drug interactions. Risk benefit ratio favors no change other than as noted in my dictated progress note. Diagnosis: Problems: (1) Mild cognitive impairment (2) Major depressive disorder, recurrent episode (3) Impulse control disorder (4) Anxiety disorder BEA SAWANT MD Apr 04, 2018 18:26
--- NOTE | 2018-04-05 18:00 | DS ---
DATE OF DISCHARGE: 04/04/2018 DISCHARGE SUMMARY/PSYCHIATRIC PROGRESS NOTE This late entry 04/04/2018 covers elements not covered in my initial note. REASON FOR ADMISSION: Please refer to the admission history for details. Briefly, the patient is a 72-year-old female referred to us from [facility] on account of worsening symptoms of depression, thoughts of harming herself increased agitation, being delusional, having visual hallucinations and increased confusion. The patient had failed outpatient psychiatric interventions prior inpatient stay with us on the [facility]. SIGNIFICANT FINDINGS AND CLINICAL COURSE: Following admission, the patient was seen daily individually by myself from a psychiatric standpoint, medical followup per Dr. Mcguire/Dr. Kolb. She is extremely confused, labile in her mood. Adjustments were made in her psychotropics and she seemed to respond to a combination of Cymbalta 60 mg a day, melatonin 6 mg at bedtime, Remeron 7.5 mg at bedtime, Zyprexa p.r.n., Trileptal 150 mg twice a day. Gradually, she appeared much clearer cognitively as opposed to the marked confusion, disorientation and psychotic symptoms evident earlier in her hospitalization. Prior to discharge, 04/04/2018, ambulation impaired with walker. No CV, , pulmonary, eye, ENT system symptoms on review. MENTAL STATUS EXAM: Oriented to herself and situation. Speech coherent, abstraction fair, computation impaired, language function intact. Mood and affect improved. No suicidal or homicidal ideation. LABORATORY DATA: Reviewed. CONDITION AT DISCHARGE: Improved. FINAL DIAGNOSES: Bipolar 1 disorder, mixed with psychotic features, in partial remission; major depressive disorder with psychotic features in partial remission; cognitive disorder, unspecified; anxiety disorder, unspecified; impulse control disorder, unspecified. Rest unchanged from admission. DISCHARGE MEDICATIONS: Please refer to the MRAD. DISCHARGE INSTRUCTIONS: Outpatient psychiatric and medical followup at the [facility]. BEA SAWANT MD DR: MARK/daphne JOB#: [id number] / [id number]
== END 2018-04-04 14:33 | DRG 885 ==
LOC: ER 22:06 → GEROPSY 02-22 04:46
PROVIDERS: ADMIT Psychiatry & Neurology Psychiatry; ATTEND Psychiatry & Neurology Psychiatry
DX: F31.64 Bipolar disorder, current episode mixed, severe, with psychotic features (principal); I69.359 Hemiplegia and hemiparesis following cerebral infarction affecting unspecified side; F02.81 Dementia in other diseases classified elsewhere, unspecified severity, with behavioral disturbance; F01.51 Vascular dementia, unspecified severity, with behavioral disturbance; E11.9 Type 2 diabetes mellitus without complications; E78.5 Hyperlipidemia, unspecified; F09 Unspecified mental disorder due to known physiological condition; F41.9 Anxiety disorder, unspecified; F63.9 Impulse disorder, unspecified; G30.9 Alzheimer's disease, unspecified; G47.33 Obstructive sleep apnea (adult) (pediatric); I10 Essential (primary) hypertension; M54.9 Dorsalgia, unspecified; J44.9 Chronic obstructive pulmonary disease, unspecified; K21.9 Gastro-esophageal reflux disease without esophagitis; M19.90 Unspecified osteoarthritis, unspecified site; Z91.14 Patient's other noncompliance with medication regimen; Z96.651 Presence of right artificial knee joint; E66.01 Morbid (severe) obesity due to excess calories; K59.09 Other constipation; G47.00 Insomnia, unspecified; Z88.8 Allergy status to other drugs, medicaments and biological substances
CPT/HCPCS: 36415; 70450; 71045; 80053; 80061; 80164; 81001; 82274; 82306; 82607; 82947; 83036; 83540; 83550; 83735; 84436; 84443; 84480; 84484; 85025; 86593; 93005; 94640; 94799; J1815; J7626; 97110; 97116; 97530; 97535; 99285-25

== ENCOUNTER 2018-09-03 16:07 | Emergency (ER) | payer MEDICARE, OTHER ==
[~2018-09-03] VITALS: Ht 157.5 cm; Wt 97.7 kg
[2018-09-03 16:07] VITALS: BP 148/86
[~2018-09-03 16:07] MED LIST changes: +ASCO500C9 PO; +DEXT15DR5 EACHEYE; +HYDR28.311 RC; +INSU100I17 SQ; -METF10003 PO; +METF10007 PO; +METF500T16 PO; -METF500T5 PO; +METH29OI TP; +MIRT15TA PO; +MIRT15TA3 PO; +OLAN5TAB3 PO; +OXCA150T3 PO; +RISP0.2519
--- NOTE | 2018-09-03 16:20 | PHYS DOC ---
Past History Past Medical History: Anemia, Anxiety, Constipation, COPD, CVA, Dementia, Depression, Diabetes, GERD, High Cholesterol, Hypertension, Other Past Surgical History: Alcohol Use: Occasionally Drug Use: None Adult General Chief Complaint Chief Complaint: PSYCH EVALUATION HPI HPI 72-year-old female presents via EMS from her care facility for increased agitation. Last few days the patient was reported to bend or difficult and agitated. She has been seen in this facility before and admitted for behavioral health. The behavioral health floor was not notified of the patient prior to arrival in the ED. When I asked patient if she knows why she is here, she does not know why. She denies specific medical complaints. She states that she has had some long-term intermittent belly pain. She denies dysuria or urinary frequency. She denies change in bowel habits. Review of Systems Review of Systems Constitutional: Denies fever or chills [] Eyes: Denies change in visual acuity, redness, or eye pain [] HENT: Denies nasal congestion or sore throat [] Respiratory: Denies cough or shortness of breath [] Cardiovascular: No additional information not addressed in HPI [] GI: Mild abdominal pain[] : Denies dysuria or hematuria [] Musculoskeletal: Denies back pain or joint pain [] Integument: Denies rash or skin lesions [] Neurologic: Denies headache, focal weakness or sensory changes [] Endocrine: Denies polyuria or polydipsia [] All other systems were reviewed and found to be within normal limits, except as documented in this note. Allergies Allergies Allergies Coded Allergies Type Severity Reaction Last Updated Verified aspirin Allergy Intermediate 10/02/15 Yes Physical Exam Physical Exam Constitutional: Well developed, well nourished, no acute distress, non-toxic appearance. [] HENT: Normocephalic, atraumatic, bilateral external ears normal, oropharynx moist, no oral exudates, nose normal. [] Eyes: PERRLA, EOMI, conjunctiva normal, no discharge. [] Neck: Normal range of motion, no tenderness, supple, no stridor. [] Cardiovascular:Heart rate regular rhythm, no murmur [] Lungs & Thorax: Bilateral breath sounds clear to auscultation [] Abdomen: Bowel sounds normal, soft, no tenderness, no masses, no pulsatile masses. [] Skin: Warm, dry, no erythema, no rash. [] Back: No tenderness, no CVA tenderness. [] Extremities: No tenderness, no cyanosis, no clubbing, ROM intact, no edema. [] Neurologic: Alert and oriented, normal motor function, normal sensory function, no focal deficits noted. [] Psychologic: Affect normal, judgement normal, mood normal. [] Current Patient Data Lab Results Laboratory Tests Test 09/03/18 16:12 Glucose (Fingerstick) 212 mg/dL (70-99) H EKG EKG Sinus rhythm, rate 81, leftward axis, no ST elevations or depressions.[] Radiology/Procedures Radiology/Procedures [] Impressions: 1. Mental Status Change- Aggressive and Combative Behavior 2. Hx. of Depression 3. Bipolar Hx 4. Decondition- Muscle weakness generalized 5. Demential 6. Anemia 10.9 Hgb 7. Hyperlipidemia 8. Hx. Seizures 9. Hx. Sleep Apnea 10. Rt. Hemiplegia/Hemiparesis- post CVA- Chronic 11. DM 229 12. GERD 13. HTN 14. Elevated Creat. and BUN 22/1.2 15. UTI Course & Med Decision Making Course & Med Decision Making Pertinent Labs and Imaging studies reviewed. (See chart for details) See Dr. Montejo chart for details. Currently awaiting Psych. eval. at 1800 hrs. Patient's labs are remarkable for elevated blood sugar. She has some anemia which is likely chronic. The psychiatrist, Dr Malone, who performed her evaluation believes that she is safe to return to her facility. He has requested that any slings or other items that she could place her on her neck be removed from her room. Not appear suicidal at this time. She is also not agitated. We will transfer her back to her care facility. [] Dragon Disclaimer Dragon Disclaimer This electronic medical record was generated, in whole or in part, using a voice recognition dictation system. Departure Departure: Referrals: LARISSA POWERS MD (PCP) CRUZ MONTEJO DO Sep 03, 2018 16:20 DALLIN IRIZARRY MD Sep 03, 2018 18:09
[2018-09-03 17:11] LABS: BASO # 0.1 x10^3/uL (0.0-0.2); BASO % 1 % (0-3); EOS # 0.1 x10^3/uL (0.0-0.7); EOS % 1 % (0-3); HEMATOCRIT 33.5 % (36.0-47.0); HEMOGLOBIN 10.9 g/dL (12.0-15.5); LYMPH # 2.5 x10^3/uL (1.0-4.8); LYMPH % 25 % (24-48); MEAN CORPUSCULAR HEMOGLOBIN 27 pg (25-35); MEAN CORPUSCULAR HGB CONC 32 g/dL (31-37); MEAN CORPUSCULAR VOLUME 84 fL (79-100); MONO # 0.6 x10^3/uL (0.0-1.1); MONO % 6 % (0-9); NEUT # 6.8 x10^3uL (1.8-7.7); NEUT % 68 % (31-73); PLATELET COUNT 322 x10^3/uL (140-400); RED BLOOD COUNT 4.01 x10^6/uL (3.50-5.40); RED CELL DISTRIBUTION WIDTH 15.7 % (11.5-14.5)
--- NOTE | 2018-09-03 17:13 | EKG ---
[address] [address] Test Date: 2018-09-03 Test Time: 16:21:17 Pat Name: KAYLAN THOMSON Department: Room: Gender: F Lathe Set Up Person: : 1945 Requested By: CURZ MONTEJO Order Number: [id number] Reading MD: Ruiz Bah MD Measurements Intervals Bentley Rate: 81 P: 28 NV: 136 QRS: -18 QRSD: 86 T: 15 QT: 334 QTc: 393 Interpretive Statements SINUS RHYTHM Electronically Signed On 09-05-2018 8:37:06 MARKETING DEVELOPER by Ruiz Bah MD
[2018-09-03 17:23] LABS: BILIRUBIN,URINE NEG (NEG); CLARITY,URINE CLOUDY; COLOR,URINE YELLOW; GLUCOSE,URINE 100 mg/dL (NEG)
[2018-09-03 17:24] LABS: BACTERIA,URINE FEW /HPF (0-FEW); NITRITE,URINE NEG (NEG); SQUAMOUS EPITHELIAL CELL,UR MANY /LPF; UROBILINOGEN,URINE 2 mg/dL (0.2 mg/dL)
[2018-09-03 17:26] LABS: ALBUMIN 3.2 g/dL (3.4-5.0); ALBUMIN/GLOBULIN RATIO 0.7 (1.0-1.7); CALCIUM 9.3 mg/dL (8.5-10.1); CREATININE 1.2 mg/dL (0.6-1.0); GFR 53.4; MAGNESIUM 2.1 mg/dL (1.8-2.4); POTASSIUM 4.5 mmol/L (3.5-5.1); TOTAL BILIRUBIN 0.3 mg/dL (0.2-1.0); TOTAL PROTEIN 7.9 g/dL (6.4-8.2)
[2018-09-03] MEDS ORDERED: CEPHALEXIN 250 MG CAPSULE PO ONE (18:30)
== END 2018-09-03 19:10 ==
LOC: ER 16:07
DX: R45.1 Restlessness and agitation (principal); F31.9 Bipolar disorder, unspecified; M62.81 Muscle weakness (generalized); D64.9 Anemia, unspecified; E78.5 Hyperlipidemia, unspecified; G47.30 Sleep apnea, unspecified; E11.65 Type 2 diabetes mellitus with hyperglycemia; K21.9 Gastro-esophageal reflux disease without esophagitis; I10 Essential (primary) hypertension; R79.89 Other specified abnormal findings of blood chemistry; N39.0 Urinary tract infection, site not specified; F41.9 Anxiety disorder, unspecified; J44.9 Chronic obstructive pulmonary disease, unspecified; F03.90 Unspecified dementia, unspecified severity, without behavioral disturbance, psychotic disturbance, mood disturbance, and anxiety; E78.00 Pure hypercholesterolemia, unspecified; Z86.73 Personal history of transient ischemic attack (TIA), and cerebral infarction without residual deficits; Z86.2 Personal history of diseases of the blood and blood-forming organs and certain disorders involving the immune mechanism; Z98.890 Other specified postprocedural states; Z88.6 Allergy status to analgesic agent
CPT/HCPCS: 36415; 80053; 81001; 82607; 82947; 83540; 83550; 83735; 85025; 87086; 93005; 99284

== ENCOUNTER 2018-09-15 14:58 | Inpatient (IN) | payer MEDICARE, OTHER ==
[~2018-09-15] VITALS: Ht 157.5 cm; Wt 94.9 kg
[~2018-09-15 14:58] MED LIST changes: -ALBU18HF IH; +ALBU2.5V8 IH; +ALBU2.5V8 INH; -ALBU8.5H8 INH; -OXYC-328 PO; +OXYC1TAB22 PO
[2018-09-15 15:52] LABS: BASO % 1 % (0-3); EOS # 0.1 x10^3/uL (0.0-0.7); EOS % 1 % (0-3); HEMATOCRIT 34.2 % (36.0-47.0); HEMOGLOBIN 11.3 g/dL (12.0-15.5); LYMPH % 29 % (24-48); MEAN CORPUSCULAR HEMOGLOBIN 28 pg (25-35); MEAN CORPUSCULAR HGB CONC 33 g/dL (31-37); MEAN CORPUSCULAR VOLUME 84 fL (79-100); MONO # 0.5 x10^3/uL (0.0-1.1); MONO % 7 % (0-9); NEUT # 4.2 x10^3uL (1.8-7.7); NEUT % 62 % (31-73); PLATELET COUNT 272 x10^3/uL (140-400); RED CELL DISTRIBUTION WIDTH 15.4 % (11.5-14.5); WHITE BLOOD COUNT 6.8 x10^3/uL (4.0-11.0)
--- NOTE | 2018-09-15 16:06 | EKG ---
[address] [address] Test Date: 2018-09-15 Test Time: 15:04:53 Pat Name: KAYLAN THOMSON Department: Room: Gender: F Ed Manager: : 1945 Requested By: HETAL MITCHELL Order Number: [id number] Reading MD: Nathanael Khan Measurements Intervals Bee Rate: 74 P: CO: QRS: -18 QRSD: 86 T: -5 QT: 362 QTc: 407 Interpretive Statements SINUS RHYTHM LEFTWARD AXIS Electronically Signed On 09-27-2018 9:12:59 LINUX PROGRAMMER by Nathanael Khan
[2018-09-15 16:08] LABS: ALBUMIN/GLOBULIN RATIO 0.7 (1.0-1.7); CALCIUM 8.9 mg/dL (8.5-10.1); CREATININE 1.1 mg/dL (0.6-1.0); GFR 59.1; MAGNESIUM 1.9 mg/dL (1.8-2.4); POTASSIUM 4.1 mmol/L (3.5-5.1); TOTAL BILIRUBIN 0.2 mg/dL (0.2-1.0); TOTAL PROTEIN 7.6 g/dL (6.4-8.2)
--- NOTE | 2018-09-15 16:14 | PHYS DOC ---
Past History Past Medical History: Anemia, Anxiety, Constipation, COPD, CVA, Dementia, Depression, Diabetes, GERD, High Cholesterol, Hypertension, Other Past Surgical History: Alcohol Use: Occasionally Drug Use: None Adult General Chief Complaint Chief Complaint: PSYCH EVALUATION HPI HPI Patient is a 72 year old female resident of longterm with dementia and multiple medical problem and recent hospitalization for psychiatric problem brought him by EMS because of aggressive behavior. Patient alert and oriented 1 and denies any problem. group home reported that patient continued to have behavior problem and sees people and had accepting psychiatric for senior behavioral unit and needs medical clearance. Review of Systems Review of Systems Constitutional: Denies fever or chills [] Eyes: Denies change in visual acuity, redness, or eye pain [] HENT: Denies nasal congestion or sore throat [] Respiratory: Denies cough or shortness of breath [] Cardiovascular: No additional information not addressed in HPI [] GI: Denies abdominal pain, nausea, vomiting, bloody stools or diarrhea [] : Denies dysuria or hematuria [] Musculoskeletal: Denies back pain or joint pain [] Integument: Denies rash or skin lesions [] Neurologic: Denies headache, focal weakness or sensory changes [] Endocrine: Denies polyuria or polydipsia [] All other systems were reviewed and found to be within normal limits, except as documented in this note. Allergies Allergies Allergies Coded Allergies Type Severity Reaction Last Updated Verified aspirin Allergy Intermediate 10/02/15 Yes Physical Exam Physical Exam Constitutional: Well nourished, no acute distress, non-toxic appearance. [] HENT: Normocephalic, atraumatic Eyes: PERRLA, EOMI, conjunctiva normal, no discharge. [] Neck: Normal range of motion, no tenderness, supple, no stridor. [] Cardiovascular:Heart rate regular rhythm, no murmur [] Lungs & Thorax: Bilateral breath sounds clear to auscultation [] Abdomen: Bowel sounds normal, soft, no tenderness, no masses, no pulsatile masses. [] Skin: Warm, dry, no erythema, no rash. [] Back: No tenderness, no CVA tenderness. [] Extremities: No tenderness, no cyanosis, no clubbing, ROM intact, no edema. [] Neurologic: Alert and oriented X 1, normal motor function, normal sensory function, no focal deficits noted. [] Psychologic: Affect normal, mood normal. [] Current Patient Data Vital Signs Vital Signs Date Time Temp Pulse Resp B/P (MAP) Pulse Ox O2 Delivery O2 Flow Rate FiO2 09/15/18 15:25 98.2 76 22 97 Room Air Lab Results Laboratory Tests Test 09/15/18 15:30 White Blood Count 6.8 x10^3/uL (4.0-11.0) Red Blood Count 4.10 x10^6/uL (3.50-5.40) Hemoglobin 11.3 g/dL (12.0-15.5) L Hematocrit 34.2 % (36.0-47.0) L Mean Corpuscular Volume 84 fL (79-100) Mean Corpuscular Hemoglobin 28 pg (25-35) Mean Corpuscular Hemoglobin Concent 33 g/dL (31-37) Red Cell Distribution Width 15.4 % (11.5-14.5) H Platelet Count 272 x10^3/uL (140-400) Neutrophils (%) (Auto) 62 % (31-73) Lymphocytes (%) (Auto) 29 % (24-48) Monocytes (%) (Auto) 7 % (0-9) Eosinophils (%) (Auto) 1 % (0-3) Basophils (%) (Auto) 1 % (0-3) Neutrophils # (Auto) 4.2 x10^3uL (1.8-7.7) Lymphocytes # (Auto) 2.0 x10^3/uL (1.0-4.8) Monocytes # (Auto) 0.5 x10^3/uL (0.0-1.1) Eosinophils # (Auto) 0.1 x10^3/uL (0.0-0.7) Basophils # (Auto) 0.0 x10^3/uL (0.0-0.2) EKG EKG EKG interpreted by me. EKG at 1504 showed multiple artifact, sinus rhythm, leftward axis, no acute ST and T-wave abnormalities[] Radiology/Procedures Radiology/Procedures [] Course & Med Decision Making Course & Med Decision Making Pertinent Labs reviewed. (See chart for details) Evaluation of patient in ER showed 72-year-old female patient brought in from longterm for medical clearance for psychiatric admission. Patient was medically cleared for psychiatric admission. Dragon Disclaimer Dragon Disclaimer This electronic medical record was generated, in whole or in part, using a voice recognition dictation system. Departure Departure: Impression: Primary Impression: Medical clearance for psychiatric admission Additional Impressions: Uncontrolled diabetes mellitus Elevated liver function tests Disposition: ADMITTED INPATIENT (at 1720) Condition: STABLE Referrals: LARISSA POWERS MD (PCP) Problem Qualifiers HETAL MITCHELL MD Sep 15, 2018 16:14
[2018-09-15 17:12] LABS: BACTERIA,URINE 0 /HPF (0-FEW); BILIRUBIN,URINE NEG (NEG); CLARITY,URINE HAZY; COLOR,URINE STRAW; GLUCOSE,URINE 250 mg/dL (NEG); NITRITE,URINE NEG (NEG); SQUAMOUS EPITHELIAL CELL,UR FEW /LPF; UROBILINOGEN,URINE 0.2 mg/dL (0.2 mg/dL); WBC,URINE RARE /HPF (0-4)
[2018-09-15 17:13] LABS: AMORPHOUS SEDIMENT,UR PRESENT /HPF
--- NOTE | 2018-09-15 18:45 | NUR ---
Admission Note with Justification for Admission to [facility] Patient admitted to [facility] for protective oversight for emergency stabilization of acute psychiatric crisis. Pt admitted from: [facility] through [facility] ED Mode of arrival: EMS Accompanied By: EMS and Nursing pattern shop supervisor Precipitating behaviors that initiated intake and admission: Patient was refusing medications including FSBS and insulin, paranoid, hearing voices, and increased agitation Description of failure of out patient attempts at stabilization in previous setting list behavior and medication trials: Patient refused medications and attempts of staff at redirection Behaviors and assessment findings upon admission: Patient was calm, compliant with directions, requested to stay in bed Plan: Admit for protective oversight for adjustment and stabilization of medications, behaviors and mood. Intense treatment regimen including groups, medication adjustments, therapy, consistent regimen for ADL's, self care, and sleep hygiene. Daily monitoring by Inpatient staff, Psychiatry, and Medical Physician.
[2018-09-15 19:14] VITALS: BP 190/84
[2018-09-15] MEDS ORDERED: HYDROCORTISONE 2.5% RECTAL CREAM 30GM TUBE. RC PRN (21:30)
[2018-09-15] MEDS ORDERED: MAG HYDROX/AL HYDROX/SIMETH 30 ML ORAL.SUSP PO PRN (21:30)
[2018-09-15] MEDS ORDERED: NYSTATIN TOPICAL POWDER 15GM BOTTLE. TP PRN (21:30)
[2018-09-15] MEDS ORDERED: ACETAMINOPHEN 325 MG TABLET PO PRN (21:30)
[2018-09-15] MEDS ORDERED: NITROGLYCERIN SUBLINGUAL 0.4 MG BOTTLE OF 25. SL PRN (21:30)
[2018-09-15] MEDS ORDERED: DICYCLOMINE HCL 10 MG CAPSULE PO PRN (21:30)
[2018-09-15] MEDS ORDERED: METHYL SALICYLATE/MENTHOL TOPICAL OINTMENT 29GM TUBE. TP PRN (21:30)
[2018-09-15] MEDS ORDERED: ALBUTEROL SULFATE 2.5 MG/3 ML NEBU. NEB PRN (21:30)
[2018-09-15] MEDS ORDERED: MAGNESIUM HYDROXIDE 2,400 MG/30 ML ORAL.SUSP. PO PRN (21:30)
[2018-09-15] MEDS ORDERED: DICLOFENAC SODIUM 1% TOPICAL GEL 100GM TUBE. TP PRN (21:30)
[2018-09-15] MEDS ORDERED: ONDANSETRON ODT 4 MG TAB.RAPDIS PO PRN (21:45)
[2018-09-15] MEDS ORDERED: POLYVINYL ALCOHOL 1.4% OPHTH SOLUTION 15ML BOTTLE. OU PRN (21:45)
[2018-09-15] MEDS ORDERED: guaiFENesin DM 200MG/20MG 10 ML SYRUP PO PRN (21:45)
[2018-09-15] MEDS ORDERED: LOPERAMIDE 2 MG CAPSULE PO PRN (21:45)
--- NOTE | 2018-09-15 22:48 | PDOC ---
Exam Note: Neal Note: Please also refer to the separate dictated note~for this date of service dictated separately. Discussed the patient with Nursing staff reviewed the chart.~Reviewed interim history and current functioning. Reviewed vital signs,~ Labs/ Radiology~and current medications noted below. Continue current treatment with the changes noted in the dictated addendum note Assessment: Vital Signs: Vital Signs Date Time Temp Pulse Resp B/P (MAP) Pulse Ox O2 Delivery O2 Flow Rate FiO2 09/15/18 19:14 98.0 69 18 190/84 (119) 97 Room Air Labs: Laboratory Tests Test 09/15/18 15:30 09/15/18 16:25 White Blood Count 6.8 x10^3/uL (4.0-11.0) Red Blood Count 4.10 x10^6/uL (3.50-5.40) Hemoglobin 11.3 g/dL (12.0-15.5) L Hematocrit 34.2 % (36.0-47.0) L Mean Corpuscular Volume 84 fL (79-100) Mean Corpuscular Hemoglobin 28 pg (25-35) Mean Corpuscular Hemoglobin Concent 33 g/dL (31-37) Red Cell Distribution Width 15.4 % (11.5-14.5) H Platelet Count 272 x10^3/uL (140-400) Neutrophils (%) (Auto) 62 % (31-73) Lymphocytes (%) (Auto) 29 % (24-48) Monocytes (%) (Auto) 7 % (0-9) Eosinophils (%) (Auto) 1 % (0-3) Basophils (%) (Auto) 1 % (0-3) Neutrophils # (Auto) 4.2 x10^3uL (1.8-7.7) Lymphocytes # (Auto) 2.0 x10^3/uL (1.0-4.8) Monocytes # (Auto) 0.5 x10^3/uL (0.0-1.1) Eosinophils # (Auto) 0.1 x10^3/uL (0.0-0.7) Basophils # (Auto) 0.0 x10^3/uL (0.0-0.2) Sodium Level 142 mmol/L (136-145) Potassium Level 4.1 mmol/L (3.5-5.1) Chloride Level 105 mmol/L (98-107) Carbon Dioxide Level 27 mmol/L (21-32) Anion Gap 10 (6-14) Blood Urea Nitrogen 22 mg/dL (7-20) H Creatinine 1.1 mg/dL (0.6-1.0) H Estimated GFR (Cockcroft-Gault) 59.1 BUN/Creatinine Ratio 20 (6-20) Glucose Level 248 mg/dL (70-99) H Calcium Level 8.9 mg/dL (8.5-10.1) Magnesium Level 1.9 mg/dL (1.8-2.4) Total Bilirubin 0.2 mg/dL (0.2-1.0) Aspartate Amino Transferase (AST) 27 U/L (15-37) Alanine Aminotransferase (ALT) 63 U/L (14-59) H Alkaline Phosphatase 117 U/L (46-116) H Total Protein 7.6 g/dL (6.4-8.2) Albumin 3.0 g/dL (3.4-5.0) L Albumin/Globulin Ratio 0.7 (1.0-1.7) L Urine Collection Type U cath Urine Color Straw Urine Clarity Hazy Urine pH 5.5 Urine Specific [place] 1.020 Urine Protein >100 mg/dl (NEG-TRACE) Urine Glucose (UA) 250 mg/dL (NEG) Urine Ketones (Stick) Trace mg/dL (NEG) Urine Blood Neg (NEG) Urine Nitrite Neg (NEG) Urine Bilirubin Neg (NEG) Urine Urobilinogen Dipstick 0.2 mg/dL (0.2 mg/dL) Urine Leukocyte Esterase Neg (NEG) Urine RBC 1-2 /HPF (0-2) Urine WBC Rare /HPF (0-4) Urine Squamous Epithelial Cells Few /LPF Urine Amorphous Sediment Present /HPF Urine Bacteria 0 /HPF (0-FEW) Current Medications: Meds: Current Medications Acetaminophen (Tylenol) 650 mg PRN Q6HRS PRN PO PAIN / TEMP; Start 09/15/18 at 21:30 Albuterol Sulfate (Ventolin) 2.5 mg PRN Q4HRS PRN NEB Dyspnea; Start 09/15/18 at 21:30 Diclofenac Sodium (Voltaren) 4 sam PRN QID PRN TP R Knee Pain; Start 09/15/18 at 21:30 Dicyclomine HCl (Bentyl) 10 mg PRN Q8HRS PRN PO Bowel Cramps; Start 09/15/18 at 21:30 Ferrous Sulfate (Feosol) 325 mg DAILY PO ; Start 09/16/18 at 09:00 Gabapentin (Neurontin) 300 mg BID PO ; Start 09/16/18 at 09:00 Hydrocortisone (Proctosol-Hc) 1 sam PRN Q24HRS PRN RC hemorrhoids; Start at 21:30 Al Hydroxide/Mg Hydroxide (Mylanta Plus Xs) 15 ml PRN AFTMEALHC PRN PO DYSPEPSIA; Start 09/15/18 at 21:30 Magnesium Hydroxide (Milk Of Magnesia) 2,400 mg PRN QHS PRN PO CONSTIPATION; Start 09/15/18 at 21:30 Multi-Ingredient Ointment (Analgesic Dwight) 1 sam PRN QID PRN TP MUSCLE PAIN; Start 09/15/18 at 21:30 Nitroglycerin (Nitrostat) 0.4 mg PRN Q5MIN PRN SL CHEST PAIN; Start 09/15/18 at 21:30 Nystatin (Nystop) 1 sam PRN TID PRN TP REDNESS; Start 09/15/18 at 21:30 Oxycodone/ Acetaminophen (Percocet 10/325) 1 tab BID PO ; Start 09/16/18 at 09: 00 Oxycodone/ Acetaminophen (Percocet 10/325) 1 tab PRN Q4HRS PRN PO PAIN; Start 09/15/18 at 21:30 Amlodipine Besylate (Norvasc) 10 mg DAILY PO ; Start 09/16/18 at 09:00 Ascorbic Acid (Vitamin C) 500 mg DAILY PO ; Start 09/16/18 at 09:00 Non-Formulary Medication (Budesonide ) 0.5 mg RTBID NEB ; Start 09/16/18 at 08: 00; Stop 09/16/18 at 08:00; Status DC Artificial Tears (Artificial Tears) 1 drop PRN TID PRN OU DRY EYE; Start at 21:45 Duloxetine HCl (Cymbalta) 60 mg DAILY PO ; Start 09/16/18 at 09:00 Famotidine (Pepcid) 20 mg DAILY PO ; Start 09/15/18 at 09:00 Guaifenesin (Robitussin Dm) 10 ml PRN Q4HRS PRN PO COUGH; Start 09/15/18 at 21: 45 Non-Formulary Medication (Insulin Aspart (Novolog Flexpen)) 200-250 2units 251- ... TIDWMEALHC SQ ; Start 09/16/18 at 08:00; Status UNV Levetiracetam (Keppra) 500 mg BID PO ; Start 09/16/18 at 09:00 Loperamide HCl (Imodium) 2 mg PRN Q4HRS PRN PO DIARRHEA; Start 09/15/18 at 21: 45 Melatonin 6 mg QHS PO ; Start 09/16/18 at 21:00 Mirtazapine (Remeron) 7.5 mg QHS PO ; Start 09/16/18 at 21:00 Ondansetron HCl (Zofran Odt) 4 mg PRN Q4HRS PRN PO NAUSEA/VOMITING; Start 09/15 at 21:45 Oxcarbazepine (Trileptal) 150 mg BID@0900,1300 PO ; Start 09/16/18 at 09:00 Pioglitazone HCl (Actos) 15 mg DAILY PO ; Start 09/16/18 at 09:00 Budesonide (Pulmicort) 0.5 mg RTBID NEB ; Start 09/16/18 at 08:00 Active Scripts Active Reported Trileptal (Oxcarbazepine) 150 Mg Tablet 150 Mg PO BID@0900,1300 Zyprexa (Olanzapine) 5 Mg Tablet 5 Mg PO PRN Q2HR PRN dissolve in mouth. Max 20mg/24hrs Mirtazapine 15 Mg Tablet 7.5 Mg PO QHS Proctosol-Hc (Hydrocortisone) 28.35 Gm Cream..g. 1 Sam RC PRN Q24HRS PRN Vitamin C (Ascorbic Acid) 500 Mg Capsule 500 Mg PO DAILY Novolog Flexpen (Insulin Aspart) 100 Unit/1 Ml Insuln.pen 2-10 Units SQ TIDWMEALHC BS 200-250 2 units BS 251-300 4 units BS 301-350 8 units BS 351-400 10 units BS >400 CALL Cymbalta (Duloxetine Hcl) 60 Mg Capsule.dr 60 Mg PO DAILY Famotidine 20 Mg Tablet 20 Mg PO DAILY Mag-Al Plus Xs Suspension (Mag Hydrox/Al Hydrox/Simeth) 30 Ml Oral.susp 15 Ml PO PRN AFTMEALHC PRN Robitussin Cough-Chest Dm Liq (Guaifenesin/Dextromethorphan) 237 Ml Liquid 10 Ml PO PRN Q4HRS PRN Percocet 10-325 Mg Tablet (Oxycodone Hcl/Acetaminophen) 1 Each Tablet 1 Tab PO PRN Q4HRS PRN Percocet 10-325 Mg Tablet (Oxycodone Hcl/Acetaminophen) 1 Each Tablet 1 Tab PO BID Ondansetron Hcl 4 Mg Tablet 4 Mg PO PRN Q4HRS PRN Nystatin 15 Gm Powder 1 Sam TP PRN TID PRN Nitrostat (Nitroglycerin) 0.4 Mg Tab.subl 0.4 Mg SL PRN Q5MIN PRN HOld for SBP less than or equal to 90mmHG. Call Provider for shest pain unrelieved by 1 sublingual nitro, may repeat x2 if chest pain persists. Melatonin 5 Mg Tablet (Melatonin/Pyridoxine) 1 Each Tablet 6 Mg PO QHS Loperamide (Loperamide Hcl) 2 Mg Tablet 2 Mg PO PRN Q4HRS PRN MDD 16mg Keppra (Levetiracetam) 500 Mg Tablet 500 Mg PO BID Ferrous Sulfate 325 Mg Tablet 325 Mg PO DAILY Neurontin (Gabapentin) 300 Mg Capsule 300 Mg PO BID Voltaren (Diclofenac Sodium) 100 Gm Gel..gram. 4 Sam TP PRN QID PRN Budesonide 0.5 Mg/2 Ml Ampul.neb 0.5 Mg NEB RTBID Dicyclomine Hcl 10 Mg Capsule 10 Mg PO PRN Q8HRS PRN Artificial Tears Eye Drops (Dextran 70/Hypromellose) 15 Ml Drops 1 Drop OU TID PRN Anusol-Hc (Hydrocortisone Acetate) 25 Mg Supp.rect 25 Mg RC PRN Q12HR PRN Norvasc (Amlodipine Besylate) 10 Mg Tablet 10 Mg PO DAILY Tylenol (Acetaminophen) 325 Mg Tablet 650 Mg PO PRN Q6HRS PRN Max acetaminophen dose os 4000mg/24hrs from all sources Albuterol Sulfate Neb Soln (Albuterol Sulfate) 2.5 Mg/3 Ml Vial.neb 2.5 Mg NEB PRN Q4HRS PRN Milk Of Magnesia (Magnesium Hydroxide) 400 Mg/5 Ml Oral.susp 2,400 Mg PO PRN QHS PRN Actos (Pioglitazone Hcl) 15 Mg Tablet 15 Mg PO DAILY I have reviewed the current psychotropics carefully including drug interactions. Risk benefit ratio favors no change other than as noted in my dictated progress note. Diagnosis: Problems: (1) Anxiety disorder (2) Impulse control disorder (3) Major depressive disorder, recurrent episode (4) Mild cognitive impairment BEA SAWANT MD Sep 15, 2018 22:48
--- NOTE | 2018-09-16 01:20 | NUR ---
Pt resting in bed all evening. Unable to assess orientation as she was sleeping. No behaviors noted.
[2018-09-16 06:06] VITALS: BP 169/92
[2018-09-16] MEDS ORDERED: NON FORMULARY ITEM (Insulin Aspart (Novolog Flexpen) 0 UNITS) SQ SCH (08:00)
[2018-09-16] MEDS ORDERED: NON FORMULARY ITEM (Budesonide 0.5 MG) NEB SCH (08:00)
[2018-09-16] MEDS: INSULIN LISPRO 300 UNITS/3 ML INSULN.PEN. SQ SCH ×3 (09:41→17:53)
[2018-09-16] MEDS: FAMOTIDINE 20 MG TABLET PO SCH ×2 (09:42→09:48)
[2018-09-16] MEDS: PIOGLITAZONE 15 MG TABLET. PO SCH (09:46)
[2018-09-16] MEDS: DULoxetine HCL 60 MG CAPSULE.DR PO SCH (09:46)
[2018-09-16] MEDS: oxyCODONE/APAP 10/325 1 TAB TABLET PO SCH ×2 (09:47→19:51)
[2018-09-16] MEDS: amLODIPine BESYLATE 10 MG TABLET PO SCH (09:47)
[2018-09-16] MEDS: ASCORBIC ACID 500 MG TABLET PO SCH (09:47)
[2018-09-16] MEDS: FERROUS SULFATE 325 MG TABLET. PO SCH (09:47)
[2018-09-16] MEDS: GABAPENTIN 300 MG CAPSULE. PO SCH ×2 (09:47→19:50)
[2018-09-16] MEDS: levETIRAcetam 500 MG TABLET PO SCH ×2 (09:48→19:50)
[2018-09-16] MEDS: OXcarbazepine 150 MG TABLET. PO SCH ×2 (09:48→12:48)
[2018-09-16] MEDS: BUDESONIDE 0.5 MG/2 ML NEBU NEB SCH ×2 (11:13→20:32)
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
--- NOTE | 2018-09-16 13:00 | NUR ---
Assumed care of pt approx 0700. Pt calm, compliant, cooperative w/ cares. Denied hallucinations and denied SI/HI. No evidence of delusions or hallucinations. Will continue to monitor.
[2018-09-16 13:26] LABS: THYROID STIM HORMONE (TSH) 1.979 uIU/mL (0.358-3.740)
[2018-09-16 16:51] VITALS: BP 153/72
[2018-09-16] MEDS: CHOLECALCIFEROL (VITAMIN D3) 50,000 UNIT CAPSULE PO SCH (18:01)
--- NOTE | 2018-09-16 18:27 | NUR ---
Behavior Intervention Response and Plan: BIRP Note: Behavior: Assumed Care of patient, patient located in Dining Room at shift change. Patient exhibited the following behavior Calm, Compliant, Cooperative. Brief assessment on rounds of vital signs, medication needs, lab studies, and pain. Treatment plan problems alteration in mood and fall risk. Intervention: Patient assessed and the following interventions initiated safety checks 15 Minute Checks Medications , Head to toe Assessment , Cognitive Assessment. Response: After interactions and interventions patient responded in the following manner, Calm , Cooperative ,Compliant. Continue to assess behaviors and condition will continue to monitor throughout the shift as needed. Patient educated on ADL's, and hand hygiene. Plan: Continue to monitor Master Treatment Plan for patient's progress toward short term goals of Decreased Agitation, Decreased Agitation, skilled nursing goals to return to previous living setting vs placement. Continue to assess patient for changes in above assessment. Monitor for medication needs, pain, and safety concerns. Hourly rounding performed to ensure safe environment.
[2018-09-16] MEDS: MIRTAZAPINE 7.5 MG TABLET. PO SCH (19:52)
[2018-09-16] MEDS: MELATONIN 3 MG TABLET PO SCH (19:52)
[2018-09-16] MEDS: INSULIN GLARGINE 300 UNITS/3 ML INSULN.PEN. SQ SCH (19:54)
--- NOTE | 2018-09-16 22:33 | PDOC ---
Exam Note: Neal Note: Please also refer to the separate dictated note~for this date of service dictated separately.~Patient seen individually. Discussed the patient with Nursing staff reviewed the chart.~Reviewed interim history and current functioning. Reviewed vital signs,~Labs/ Radiology~and current medications noted below. Continue current treatment with the changes noted in the dictated addendum note Assessment: Vital Signs: Vital Signs Date Time Temp Pulse Resp B/P (MAP) Pulse Ox O2 Delivery O2 Flow Rate FiO2 09/16/18 20:35 97 Room Air 09/16/18 16:51 97.8 73 20 153/72 (99) Labs: Laboratory Tests Test 09/16/18 08:18 09/16/18 12:22 09/16/18 17:13 09/16/18 19:13 Glucose (Fingerstick) 399 mg/dL (70-99) H 237 mg/dL (70-99) H 237 mg/dL (70-99) H 313 mg/dL (70-99) H Current Medications: Meds: Current Medications Acetaminophen (Tylenol) 650 mg PRN Q6HRS PRN PO PAIN / TEMP; Start 09/15/18 at 21:30 Albuterol Sulfate (Ventolin) 2.5 mg PRN Q4HRS PRN NEB Dyspnea; Start 09/15/18 at 21:30 Diclofenac Sodium (Voltaren) 4 sam PRN QID PRN TP R Knee Pain; Start 09/15/18 at 21:30 Dicyclomine HCl (Bentyl) 10 mg PRN Q8HRS PRN PO Bowel Cramps; Start 09/15/18 at 21:30 Ferrous Sulfate (Feosol) 325 mg DAILY PO Last administered on 09/16/18at 09:47; Start 09/16/18 at 09:00 Gabapentin (Neurontin) 300 mg BID PO Last administered on 09/16/18at 19:50; Start 09/16/18 at 09:00 Hydrocortisone (Proctosol-Hc) 1 sam PRN Q24HRS PRN RC hemorrhoids; Start at 21:30 Al Hydroxide/Mg Hydroxide (Mylanta Plus Xs) 15 ml PRN AFTMEALHC PRN PO DYSPEPSIA; Start 09/15/18 at 21:30 Magnesium Hydroxide (Milk Of Magnesia) 2,400 mg PRN QHS PRN PO CONSTIPATION; Start 09/15/18 at 21:30 Multi-Ingredient Ointment (Analgesic [place]) 1 sam PRN QID PRN TP MUSCLE PAIN; Start 09/15/18 at 21:30 Nitroglycerin (Nitrostat) 0.4 mg PRN Q5MIN PRN SL CHEST PAIN; Start 09/15/18 at 21:30 Nystatin (Nystop) 1 sam PRN TID PRN TP REDNESS; Start 09/15/18 at 21:30 Oxycodone/ Acetaminophen (Percocet 10/325) 1 tab BID PO Last administered on at 19:51; Start 09/16/18 at 09:00 Oxycodone/ Acetaminophen (Percocet 10/325) 1 tab PRN Q4HRS PRN PO PAIN; Start 09/15/18 at 21:30 Amlodipine Besylate (Norvasc) 10 mg DAILY PO Last administered on 09/16/18at 09: 47; Start 09/16/18 at 09:00 Ascorbic Acid (Vitamin C) 500 mg DAILY PO Last administered on 09/16/18at 09:47 ; Start 09/16/18 at 09:00 Non-Formulary Medication (Budesonide ) 0.5 mg RTBID NEB ; Start 09/16/18 at 08: 00; Stop 09/16/18 at 08:00; Status DC Artificial Tears (Artificial Tears) 1 drop PRN TID PRN OU DRY EYE; Start at 21:45 Duloxetine HCl (Cymbalta) 60 mg DAILY PO Last administered on 09/16/18at 09:46; Start 09/16/18 at 09:00 Famotidine (Pepcid) 20 mg DAILY PO Last administered on 09/16/18at 09:48; Start 09/15/18 at 09:00 Guaifenesin (Robitussin Dm) 10 ml PRN Q4HRS PRN PO COUGH; Start 09/15/18 at 21: 45 Non-Formulary Medication (Insulin Aspart (Novolog Flexpen)) 200-250 2units 251- ... TIDWMEALHC SQ ; Start 09/16/18 at 08:00; Status UNV Levetiracetam (Keppra) 500 mg BID PO Last administered on 09/16/18at 19:50; Start 09/16/18 at 09:00 Loperamide HCl (Imodium) 2 mg PRN Q4HRS PRN PO DIARRHEA; Start 09/15/18 at 21: 45 Melatonin 6 mg QHS PO Last administered on 09/16/18at 19:52; Start 09/16/18 at 21:00 Mirtazapine (Remeron) 7.5 mg QHS PO Last administered on 09/16/18 19:52; Start 09/16/18 at 21:00 Ondansetron HCl (Zofran Odt) 4 mg PRN Q4HRS PRN PO NAUSEA/VOMITING; Start 09/15 at 21:45 Oxcarbazepine (Trileptal) 150 mg BID@0900,1300 PO Last administered on 12:48; Start 09/16/18 at 09:00 Pioglitazone HCl (Actos) 15 mg DAILY PO Last administered on 09/16/18 09:46; Start 09/16/18 at 09:00 Budesonide (Pulmicort) 0.5 mg RTBID NEB Last administered on 09/16/18 20:32; Start 09/16/18 at 08:00 Insulin Human Lispro (HumaLOG) 0-5 UNITS TIDWMEALS SQ Last administered on 09/16 17:53; Start 09/16/18 at 08:00 Insulin Glargine (Lantus) 10 units QHS SQ Last administered on 09/16/18 19:54 ; Start 09/16/18 at 21:00 Vitamin D (Vitamin D3) 50,000 unit WEEKLY PO Last administered on 09/16/18at 18: 01; Start 09/16/18 at 16:15 Active Scripts Active Reported Trileptal (Oxcarbazepine) 150 Mg Tablet 150 Mg PO BID@0900,1300 Zyprexa (Olanzapine) 5 Mg Tablet 5 Mg PO PRN Q2HR PRN dissolve in mouth. Max 20mg/24hrs Mirtazapine 15 Mg Tablet 7.5 Mg PO QHS Proctosol-Hc (Hydrocortisone) 28.35 Gm Cream..g. 1 Sam RC PRN Q24HRS PRN Vitamin C (Ascorbic Acid) 500 Mg Capsule 500 Mg PO DAILY Novolog Flexpen (Insulin Aspart) 100 Unit/1 Ml Insuln.pen 2-10 Units SQ TIDWMEALHC BS 200-250 2 units BS 251-300 4 units BS 301-350 8 units BS 351-400 10 units BS >400 CALL MD [place] (Duloxetine Hcl) 60 Mg Capsule.dr 60 Mg PO DAILY Famotidine 20 Mg Tablet 20 Mg PO DAILY Mag-Al Plus Xs Suspension (Mag Hydrox/Al Hydrox/Simeth) 30 Ml Oral.susp 15 Ml PO PRN AFTMEALHC PRN Robitussin Cough-Chest Dm Liq (Guaifenesin/Dextromethorphan) 237 Ml Liquid 10 Ml PO PRN Q4HRS PRN Percocet 10-325 Mg Tablet (Oxycodone Hcl/Acetaminophen) 1 Each Tablet 1 Tab PO PRN Q4HRS PRN Percocet 10-325 Mg Tablet (Oxycodone Hcl/Acetaminophen) 1 Each Tablet 1 Tab PO BID Ondansetron Hcl 4 Mg Tablet 4 Mg PO PRN Q4HRS PRN Nystatin 15 Gm Powder 1 Sam TP PRN TID PRN Nitrostat (Nitroglycerin) 0.4 Mg Tab.subl 0.4 Mg SL PRN Q5MIN PRN HOld for SBP less than or equal to 90mmHG. Call Provider for shest pain unrelieved by 1 sublingual nitro, may repeat x2 if chest pain persists. Melatonin 5 Mg Tablet (Melatonin/Pyridoxine) 1 Each Tablet 6 Mg PO QHS Loperamide (Loperamide Hcl) 2 Mg Tablet 2 Mg PO PRN Q4HRS PRN MDD 16mg Keppra (Levetiracetam) 500 Mg Tablet 500 Mg PO BID Ferrous Sulfate 325 Mg Tablet 325 Mg PO DAILY Neurontin (Gabapentin) 300 Mg Capsule 300 Mg PO BID Voltaren (Diclofenac Sodium) 100 Gm Gel..gram. 4 Sam TP PRN QID PRN Budesonide 0.5 Mg/2 Ml Ampul.neb 0.5 Mg NEB RTBID Dicyclomine Hcl 10 Mg Capsule 10 Mg PO PRN Q8HRS PRN Artificial Tears Eye Drops (Dextran 70/Hypromellose) 15 Ml Drops 1 Drop OU TID PRN Anusol-Hc (Hydrocortisone Acetate) 25 Mg Supp.rect 25 Mg RC PRN Q12HR PRN Norvasc (Amlodipine Besylate) 10 Mg Tablet 10 Mg PO DAILY Tylenol (Acetaminophen) 325 Mg Tablet 650 Mg PO PRN Q6HRS PRN Max acetaminophen dose os 4000mg/24hrs from all sources Albuterol Sulfate Neb Soln (Albuterol Sulfate) 2.5 Mg/3 Ml Vial.neb 2.5 Mg NEB PRN Q4HRS PRN Milk Of Magnesia (Magnesium Hydroxide) 400 Mg/5 Ml Oral.susp 2,400 Mg PO PRN QHS PRN Actos (Pioglitazone Hcl) 15 Mg Tablet 15 Mg PO DAILY I have reviewed the current psychotropics carefully including drug interactions. Risk benefit ratio favors no change other than as noted in my dictated progress note. Diagnosis: Problems: (1) Anxiety disorder (2) Impulse control disorder (3) Major depressive disorder, recurrent episode (4) Mild cognitive impairment BEA SAWANT MD Sep 16, 2018 22:33
[2018-09-16 23:11] LABS: HEMOGLOBIN A1C 7.9 % (4.8-5.6)
--- NOTE | 2018-09-17 02:58 | NUR ---
Pt sitting quietly in the day room at shift change. Pt A/O to self, pleasantly confused, calm, and cooperative. Pt compliant with medications and assessment.
--- NOTE | 2018-09-17 03:13 | CONS ---
DATE OF CONSULTATION: REASON FOR CONSULTATION: Medical management. HISTORY OF PRESENT ILLNESS: The patient is a 72-year-old -[place] female patient, resident at [facility], who was admitted on account of threatening staff, yelling, cursing, paranoid, hallucinating, delusional, thinks people are talking against her, anxious with decreased appetite and weight loss. All this in a background of bipolar disorder, mixed with psychotic features. She is here for inpatient psychiatric stabilization. PAST MEDICAL HISTORY: Significant for type 2 diabetes, hyperlipidemia, obstructive sleep apnea, hypertension, cerebrovascular accident, chronic obstructive pulmonary disease, gastroesophageal reflux disease and morbid obesity. PAST SURGICAL HISTORY: Significant for right total hip arthroplasty. ALLERGIES: She is allergic to ASPIRIN. FAMILY HISTORY: Unremarkable. SOCIAL HISTORY: She is . Presently resides at [place]. States she does not smoke, drink alcohol or use recreational drugs. REVIEW OF SYSTEMS: As per her history of present illness. MEDICATIONS: She is currently on following medications: She is on dicyclomine 10 mg every 8 hours as needed, albuterol sulfate 2.5 mg 2 mL by nebulizer every 4 hours, ferrous sulfate 25 mg once a day, nitroglycerin 0.4 mg sublingually every 5 minutes x 3, amlodipine besylate 10 mg, Norvasc 10 mg once a day, diclofenac sodium 100 grams gel topically 4 times a day and analgesic balm 1 gram 4 times a day, oxycodone/APAP 10/325 one tablet every 4 hours. She is on Tylenol 650 mg every 6 hours, gabapentin 300 mg twice a day. She is on Keppra 500 mg twice a day, oxcarbazepine for Trileptal 150 mg twice a day, duloxetine for Cymbalta 60 mg once a day, mirtazapine 7.5 mg at bedtime. She is on olanzapine 5 mg p.o. q. 2 hourly p.r.n. for psychosis. She is on Robitussin DM 10 mL every 4 hours, Pulmicort 0.5 mg by nebulizer twice a day. She is on artificial tears eyedrop 1 drop to both eyes 3 times a day, Mylanta 15 mL after meals and loperamide 2 mg every 4 hours for diarrhea. She is on milk of magnesia at 30 mL p.o. daily p.r.n. for constipation, ondansetron 4 mg every 4 hours, famotidine 20 mg daily, insulin NovoLog 2 to 10 units subcutaneously 3 times a day with meals. She is on pioglitazone 50 mg daily, Nystatin powder applied topically 3 times a day, hydrocortisone, proctosol rectally daily p.r.n. for constipation, hydrocortisone acetate 25 mg rectally every 12 hours for hemorrhoids, ascorbic acid 500 mg once a day, melatonin 6 mg at bedtime. PHYSICAL EXAMINATION: GENERAL: On examining her, she was sitting comfortably in her wheelchair, in no apparent respiratory distress. She is slightly pale, no jaundice, cyanosis or thyromegaly. No jugular venous distention. No lower limb edema. VITAL SIGNS: Her heart rate was 112, blood pressure was 169/92, temperature was 98, respiratory rate 24 and oxygen saturation was 100% on room air. HEAD, EYES, EARS, NOSE AND THROAT: Showed she is normocephalic, atraumatic. NECK: Supple. HEART: Showed normal first and second sounds. No gallop, rub or murmur. CHEST: Clear to auscultation. No crepitation or rhonchi. ABDOMEN: Distended, soft, nontender. No guarding or rigidity. No organomegaly. All hernial orifice intact. Bowel sounds normal. NEUROLOGIC: She is awake, alert, responding appropriately. Cranial nerves intact. EXTREMITIES: She moves extremities without difficulty. She is mostly bed bound and chair bound. She apparently has Tomi lift. LABORATORY WORK: Showed a white count of 6800, hemoglobin 11, hematocrit 34, MCV 84 and platelet count 272,000. Chemistry: Sodium 142, potassium 4.1, chloride 105, bicarbonate 27, anion gap of 10, BUN 22, creatinine 1.1. Estimated GFR was 59 mL per minute, her glucose was 148, calcium was 8.9, magnesium was 1.9. Total bilirubin, AST normal. ALT, alkaline phosphatase slightly elevated. Total protein 7.6, albumin 3. Her serum iron was 36, TIBC was 202 and percent saturation was 18. Her triglycerides 425. Total cholesterol 159, LDL was 89, VLDL was 25, HDL was 45 and the ratio was 3. Her vitamin B12 was 1143. A 25-hydroxy vitamin D was 18.9 and TSH was 1.979. Her urinalysis showed the urine was yellow, straw colored, hazy with a pH of 5.5, specific gravity of 1.020, large amount of protein, large amount of glucose, trace ketones. Negative for blood nitrite, bilirubin and leukocyte esterase. There are 1-2 rbc's and rare wbc's, and no bacteria. IMPRESSION: In summary, this is a 72-year-old -[place] female patient, a resident of [facility], who was admitted on account of threatening staff, yelling, cursing, paranoid, hallucinating, delusional and thinks people are talking against her and she is anxious with decreased appetite and weight loss. All this in a background of bipolar disorder mixed with psychotic features. She is here for inpatient psychiatric stabilization. Medically, the patient is known to have type 2 diabetes, hyperlipidemia, obstructive sleep apnea, hypertension, cerebrovascular accident, chronic obstructive pulmonary disease, gastroesophageal reflux disease, and morbid obesity. Her lab work has showed that she has vitamin D deficiency, for which I will start her on cholecalciferol. I will follow all her other lab work that are still pending at the time of this dictation and make any necessary recommendation. Thank you, Dr. Gregory for allowing me to participate in the care of this patient. CALEB ALLEN MD DR: EMMA/daphne JOB#: [id number] / [id number]
[2018-09-17 05:51] VITALS: BP 148/81
[2018-09-17] MEDS: OXcarbazepine 150 MG TABLET. PO SCH ×2 (08:16→13:00)
[2018-09-17] MEDS: FAMOTIDINE 20 MG TABLET PO SCH (08:16)
[2018-09-17] MEDS: DULoxetine HCL 60 MG CAPSULE.DR PO SCH (08:16)
[2018-09-17] MEDS: FERROUS SULFATE 325 MG TABLET. PO SCH (08:16)
[2018-09-17] MEDS: ASCORBIC ACID 500 MG TABLET PO SCH (08:16)
[2018-09-17] MEDS: amLODIPine BESYLATE 10 MG TABLET PO SCH (08:16)
[2018-09-17] MEDS: GABAPENTIN 300 MG CAPSULE. PO SCH ×2 (08:16→19:48)
[2018-09-17] MEDS: PIOGLITAZONE 15 MG TABLET. PO SCH (08:16)
[2018-09-17] MEDS: levETIRAcetam 500 MG TABLET PO SCH ×2 (08:16→19:47)
[2018-09-17] MEDS: INSULIN LISPRO 300 UNITS/3 ML INSULN.PEN. SQ SCH ×3 (08:18→17:33)
[2018-09-17] MEDS: oxyCODONE/APAP 10/325 1 TAB TABLET PO SCH ×2 (08:21→19:48)
--- NOTE | 2018-09-17 10:19 | NUR ---
Behavior Intervention Response and Plan: BIRP Note: Behavior: Assumed Care of patient, patient located in Dining Room at shift change. Patient exhibited the following behavior Calm, Interactive, Able to Focus on Task. Brief assessment on rounds of vital signs, medication needs, lab studies, and pain. Treatment plan problems . Intervention: Patient assessed and the following interventions initiated safety checks 15 Minute Checks Head to toe Assessment , Cognitive Assessment , Medications. Response: After interactions and interventions patient responded in the following manner, Compliant , Cooperative ,Appropriate. Continue to assess behaviors and condition will continue to monitor throughout the shift as needed. Patient educated on ADL's, and hand hygiene. Plan: Continue to monitor Master Treatment Plan for patient's progress toward short term goals of Improved Mood, Decreased Agitation, terminal system operator goals to return to previous living setting vs placement. Continue to assess patient for changes in above assessment. Monitor for medication needs, pain, and safety concerns. Hourly rounding performed to ensure safe environment.
[2018-09-17] MEDS: BUDESONIDE 0.5 MG/2 ML NEBU NEB SCH ×2 (10:31→20:15)
--- NOTE | 2018-09-17 15:02 | HP ---
ADMIT DATE: 09/15/2018 PSYCHIATRIC ADMISSION HISTORY/EVALUATION This late entry 09/16/2018 covers elements not covered in my initial note. I have discussed with nursing staff on several occasions since the patient's admission and with Lor Oropeza prior to the patient's admission to gather historical information for hospitalization. IDENTIFYING DATA: The patient is a 72-year-old -[place] female who is referred back to us from [facility] by Dr. Vera, her primary care physician after she was getting increasingly psychotic, agitated, threatening staff, yelling, cursing, paranoid, hallucinating, delusional, thinking people were plotting against her. She has been anxious with decreased appetite, weight loss. She has been on one-on-one status for all of this unmanageable and referred back for inpatient psychiatric stabilization. CHIEF COMPLAINT: "I am okay." HISTORY OF PRESENT ILLNESS: The patient has a history of bipolar disorder, mixed with psychotic features versus schizoaffective disorder, bipolar type. She has been here with us in the past, was stabilized, but over the past several days, she has been increasingly psychotic with marked mood lability, agitation and aggression, threatening staff as noted above. She has had significant mood swings, vague homicidal ideation. No active suicidal ideation. She has had significant sleep and appetite changes as noted. PAST PSYCHIATRIC HISTORY: As above. MEDICAL HISTORY: Positive for short term memory deficits, anemia, diabetes mellitus with neuropathy, hypertension, sleep apnea, status post CVA, hemiparesis, hyperlipidemia. FAMILY HISTORY: Noncontributory. SOCIAL HISTORY: No alcohol, drug abuse, physical, sexual or elder abuse history is noted. She is not known to be a perpetrator. ALLERGIES: ASPIRIN. CODE STATUS: Full code. ACCU-CHEKS: Before meals and at bedtime. DIET: Regular. Takes medications whole. Ambulates in wheelchair with 2-person assist. UA on 09/15/2018 was negative. REACTION TO HOSPITALIZATION: The patient accepting of it. ASSETS: Supportive living at the above facility, reasonably cognitively intact despite short term memory deficits. MENTAL STATUS EXAM: The patient was seen individually evening of 09/16/2018. She is in her wheelchair, not very verbal, seemed to recognize me. Speech moderate latency, often responses monosyllabic. Abstraction fair, computation impaired, language function intact, attention span short. Mood and affect somewhat withdrawn, but she is paranoid, distractible. No active suicidal or homicidal ideation. LABORATORY DATA: Reviewed. IMPRESSION: Bipolar 1 disorder, mixed with psychotic features versus schizoaffective disorder, bipolar type, mixed with psychotic features; anxiety disorder, unspecified; impulse control disorder, unspecified; cognitive disorder, unspecified. Rest unchanged from above. PLAN: Admit to geropsychiatry unit at [facility]. I will see the patient daily individually from a psychiatric standpoint, medical followup with Dr. Mcguire. Continue current psychotropics, Cymbalta 60 mg a day, Remeron 7.5 mg at bedtime, Trileptal 300 mg b.i.d., melatonin 5 mg at bedtime and reassess post baseline assessment. Dr. Shipman will cover for me over the next 1 week. Estimated length of stay 10-12 days. DISPOSITION: Plans back to [facility] when stable. BEA SAWANT MD DR: MARK/nts JOB#: [id number] / [id number]
[2018-09-17 15:57] VITALS: BP 140/69
[2018-09-17] MEDS: oxyCODONE/APAP 10/325 1 TAB TABLET PO PRN (18:41)
--- NOTE | 2018-09-17 18:45 | NUR ---
Pt requested PRN pain medication. Pt complaining of R ear/jaw pain. Administered PRN Percocet will continue to monitor.
[2018-09-17] MEDS: MIRTAZAPINE 7.5 MG TABLET. PO SCH (19:46)
[2018-09-17] MEDS: INSULIN GLARGINE 300 UNITS/3 ML INSULN.PEN. SQ SCH (19:49)
[2018-09-17] MEDS: MELATONIN 3 MG TABLET PO SCH (20:55)
--- NOTE | 2018-09-17 21:31 | PN ---
DATE: 09/17/2018 SUBJECTIVE: The patient was seen today, met with the staff, chart reviewed, and also covering for Dr. Gregory. The patient's behavior mostly withdrawn, isolative, but history of increased agitation, paranoia, delusional thinking, also having hallucinations, also verbally abusive towards staff. The patient apparently has been refusing to eat and apparently lost some weight. OBSERVATION: VITAL SIGNS: Temperature 97.8, blood pressure 148/81, pulse 78, respirations 20, O2 sat 100%. GENERAL: Slept about 7 hours last night. MEDICATIONS: The patient's current medications reviewed and also that the patient is not having any side effects of the medications. The patient is on wheelchair. No recent falls. The patient's current medications include Cymbalta, Remeron, Trileptal, and melatonin. ASSESSMENT: Bipolar disorder type 1, mixed, with psychotic features versus schizoaffective disorder, cognitive disorder, mild. PLAN: Plan is to continue with the current treatment plan. LOUIS CORONEL MD DR: SHERRILL/daphne JOB#: [id number] / [id number]
--- NOTE | 2018-09-17 22:57 | NUR ---
Nursing note: Assumed care of pt in the day room. She was watching the tv and otherwise sitting quietly. Pt was pleasant and engaged, compliant with meds and assessment, conversive. No baheviors, no agitation, no c/o pain.
[2018-09-18 06:07] VITALS: BP 137/74
[2018-09-18] MEDS: INSULIN LISPRO 300 UNITS/3 ML INSULN.PEN. SQ SCH ×3 (08:37→17:00)
[2018-09-18] MEDS: DULoxetine HCL 60 MG CAPSULE.DR PO SCH (08:38)
[2018-09-18] MEDS: FERROUS SULFATE 325 MG TABLET. PO SCH (08:38)
[2018-09-18] MEDS: PIOGLITAZONE 15 MG TABLET. PO SCH (08:38)
[2018-09-18] MEDS: GABAPENTIN 300 MG CAPSULE. PO SCH ×2 (08:39→19:54)
[2018-09-18] MEDS: levETIRAcetam 500 MG TABLET PO SCH ×2 (08:39→19:54)
[2018-09-18] MEDS: amLODIPine BESYLATE 10 MG TABLET PO SCH (08:39)
[2018-09-18] MEDS: FAMOTIDINE 20 MG TABLET PO SCH (08:40)
[2018-09-18] MEDS: OXcarbazepine 150 MG TABLET. PO SCH ×2 (08:40→12:33)
[2018-09-18] MEDS: ASCORBIC ACID 500 MG TABLET PO SCH (08:40)
[2018-09-18] MEDS: oxyCODONE/APAP 10/325 1 TAB TABLET PO SCH ×2 (08:41→19:58)
[2018-09-18] MEDS: BUDESONIDE 0.5 MG/2 ML NEBU NEB SCH ×2 (10:35→20:55)
--- NOTE | 2018-09-18 11:00 | NUR ---
Assumed care of pt @ approx 0700. Pt was sitting up in her W/C in the Dining Room, eating breakfast, at the time of our initial encounter. Pt oriented to only to self. Compliant w/meds & assessment. Denies pain. Pt speaking in "word salad" - appears to be either delusional and/or hallucinating - stated that she is "going to fall into the TV." Addendum: 09/18/18 at 1119 by EVIN ZHANG RN RN No signs of paranoia @ this time. Pt pleasantly confused. She is social, and is currently sitting up in the Day Room watching TV and speaking with other pts. Will continue to monitor and assist pt in working towards her treatment and discharge goals.
--- NOTE | 2018-09-18 13:15 | NUR ---
Activity Therapy Assessment: Patient was sitting down in her wheel chair and awake during the assessment. Patient was able to remember her past, family, age but not current location. Patient uses a wheel chair and walker to ambulate in addition, will need help with most ADLs. Patient can verbally express herself and will need help with some decision making. Initial Treatment Goal: Patient will increase stress management and volunteer work by engaging in five activity groups per week.
[2018-09-18 13:35] VITALS: BP 145/76
[2018-09-18 16:43] VITALS: BP 117/66
[2018-09-18] MEDS: MIRTAZAPINE 7.5 MG TABLET. PO SCH (19:54)
[2018-09-18] MEDS: MELATONIN 3 MG TABLET PO SCH (19:54)
[2018-09-18] MEDS: INSULIN GLARGINE 300 UNITS/3 ML INSULN.PEN. SQ SCH (19:56)
--- NOTE | 2018-09-18 22:02 | PN ---
DATE: 09/18/2018 SUBJECTIVE: The patient was seen today, met with the staff, chart reviewed. The patient continues to be paranoid, having auditory hallucinations and also delusional at times. The patient also suspicious of her surroundings. OBSERVATION: VITAL SIGNS: Temperature 97.9, repeat blood pressure 137/74, pulse 73, respirations 18, O2 sat 99%. Slept about 7 hours last night. CURRENT MEDICATIONS: Reviewed. She is not having any side effects. No falls. ASSESSMENT: 1. Bipolar disorder, type 1, mixed, with psychotic features. 2. Schizoaffective disorder, bipolar type. 3. Cognitive disorder, mild. PLAN: To continue with the treatment. LOUIS CORONEL MD DR: SHERRILL/daphne JOB#: [id number] / [id number]
--- NOTE | 2018-09-18 23:24 | NUR ---
Nursing Note Pt up in day room, pleasant but somewhat delusional, looking for her family members asking for "Cricket" easily redirected this pm. No pain noted.
[2018-09-19 06:09] VITALS: BP 138/72
[2018-09-19] MEDS: OXcarbazepine 150 MG TABLET. PO SCH ×2 (08:17→13:46)
[2018-09-19] MEDS: levETIRAcetam 500 MG TABLET PO SCH ×2 (08:18→21:09)
[2018-09-19] MEDS: GABAPENTIN 300 MG CAPSULE. PO SCH ×2 (08:18→21:09)
[2018-09-19] MEDS: amLODIPine BESYLATE 10 MG TABLET PO SCH (08:18)
[2018-09-19] MEDS: ASCORBIC ACID 500 MG TABLET PO SCH (08:18)
[2018-09-19] MEDS: FAMOTIDINE 20 MG TABLET PO SCH (08:18)
[2018-09-19] MEDS: oxyCODONE/APAP 10/325 1 TAB TABLET PO SCH ×2 (08:19→21:12)
[2018-09-19] MEDS: FERROUS SULFATE 325 MG TABLET. PO SCH (08:19)
[2018-09-19] MEDS: DULoxetine HCL 60 MG CAPSULE.DR PO SCH (08:19)
[2018-09-19] MEDS: PIOGLITAZONE 15 MG TABLET. PO SCH (08:19)
[2018-09-19] MEDS: INSULIN LISPRO 300 UNITS/3 ML INSULN.PEN. SQ SCH ×3 (08:28→17:11)
--- NOTE | 2018-09-19 08:34 | NUR ---
Assumed care of pt at approx 0700. Pt in her room sleeping, pt allowed to sleep in as she seems to have fewer negative behaviors throughout the day if she is well rested. Will continue to monitor.
[2018-09-19] MEDS: BUDESONIDE 0.5 MG/2 ML NEBU NEB SCH ×2 (10:54→21:08)
[2018-09-19 15:56] VITALS: BP 132/81
--- NOTE | 2018-09-19 17:00 | NUR ---
Behavior Intervention Response and Plan: BIRP Note: Behavior: Assumed Care of patient, patient located in Patient Room at shift change. Patient exhibited the following behavior Calm, compliant, Cooperative. Brief assessment on rounds of vital signs, medication needs, lab studies, and pain. Treatment plan problems alteration in mood and fall risk. Intervention: Patient assessed and the following interventions initiated safety checks 15 Minute Checks Head to toe Assessment , Cognitive Assessment , Medications. Response: After interactions and interventions patient responded in the following manner, Calm , Disorganized ,Compliant. Continue to assess behaviors and condition will continue to monitor throughout the shift as needed. Patient educated on ADL's, and hand hygiene. 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 Continue to assess patient for changes in above assessment. Monitor for medication needs, pain, and safety concerns. Hourly rounding performed to ensure safe environment.
[2018-09-19] MEDS: MELATONIN 3 MG TABLET PO SCH (21:09)
[2018-09-19] MEDS: MIRTAZAPINE 7.5 MG TABLET. PO SCH (21:09)
[2018-09-19] MEDS: INSULIN GLARGINE 300 UNITS/3 ML INSULN.PEN. SQ SCH (21:13)
--- NOTE | 2018-09-19 23:10 | NUR ---
Nursing Note The patient is located in the day room for her interview and medication pass. The patient is calm and cooperative with her assessment and medication pass. The patient took her medications whole. The patient is currently located in her room sleeping.
--- NOTE | 2018-09-20 00:28 | PN ---
DATE: 09/19/2018 SUBJECTIVE: The patient was seen today, met with the staff, chart reviewed. Staff reports continued behavior problems, complaining of back pain. Staff also reports that the patient intentionally fall to the floor without hurting herself, not wanting to get up. The patient has been demanding, also attention seeking at times. OBSERVATION: VITAL SIGNS: Temperature 98.6, blood pressure 138/72, pulse 79, respirations 20, O2 sat 94%. The patient slept about 7 hours last night. CURRENT MEDICATIONS: The patient's lab reviewed. Also, reviewed the patient's medical medications, currently on mirtazapine 7.5 mg at night, melatonin 6 mg daily, Trileptal 150 mg b.i.d., Cymbalta 60 mg daily, gabapentin 300 mg b.i.d. ASSESSMENT: 1. Bipolar disorder type 1, mixed with psychotic features. 2. Schizoaffective disorder, bipolar type. 3. Cognitive disorder, mild. PLAN: To continue with the treatment. LOUIS CORONEL MD DR: SHERRILL/daphne JOB#: [id number] / [id number]
[2018-09-20 05:54] VITALS: BP 149/65
[2018-09-20] MEDS: levETIRAcetam 500 MG TABLET PO SCH ×2 (08:43→21:23)
[2018-09-20] MEDS: FAMOTIDINE 20 MG TABLET PO SCH (08:44)
[2018-09-20] MEDS: amLODIPine BESYLATE 10 MG TABLET PO SCH (08:44)
[2018-09-20] MEDS: DULoxetine HCL 60 MG CAPSULE.DR PO SCH (08:44)
[2018-09-20] MEDS: FERROUS SULFATE 325 MG TABLET. PO SCH (08:44)
[2018-09-20] MEDS: PIOGLITAZONE 15 MG TABLET. PO SCH (08:44)
[2018-09-20] MEDS: ASCORBIC ACID 500 MG TABLET PO SCH (08:44)
[2018-09-20] MEDS: OXcarbazepine 150 MG TABLET. PO SCH ×2 (08:45→12:33)
[2018-09-20] MEDS: GABAPENTIN 300 MG CAPSULE. PO SCH ×2 (08:47→21:23)
[2018-09-20] MEDS: oxyCODONE/APAP 10/325 1 TAB TABLET PO SCH ×2 (08:47→21:25)
[2018-09-20] MEDS: INSULIN LISPRO 300 UNITS/3 ML INSULN.PEN. SQ SCH ×3 (08:50→17:24)
--- NOTE | 2018-09-20 09:14 | NUR ---
Assumed care of pt approx 0700. Pt in dining room at time of first encounter. Pt calm, compliant with medications and assessment. Pt sat at table for relaxation group w/ GURPREET Toth. Will continue to monitor.
[2018-09-20] MEDS: BUDESONIDE 0.5 MG/2 ML NEBU NEB SCH ×2 (10:11→21:15)
[2018-09-20 16:27] VITALS: BP 149/59
--- NOTE | 2018-09-20 17:25 | NUR ---
Pt's daughter visited and said that pt c/o leg pain at night. Daughter brought in prescription for Ropinirole HCL 0.5mg Q HS. Dr. Mcguire informed and he ordered the same. Pt to receive this HS. Addendum: 09/20/18 at 1729 by KINGSTON ACUNA RN Wrong Patient.
[2018-09-20] MEDS: MELATONIN 3 MG TABLET PO SCH (21:23)
[2018-09-20] MEDS: MIRTAZAPINE 7.5 MG TABLET. PO SCH (21:23)
[2018-09-20] MEDS: INSULIN GLARGINE 300 UNITS/3 ML INSULN.PEN. SQ SCH (21:26)
--- NOTE | 2018-09-21 00:56 | PN ---
DATE: 09/20/2018 SUBJECTIVE: The patient was seen today, met with the staff, chart reviewed. Staff reports she intentionally dropped to the floor, not wanting to get up. Staff reports this is more of attention-seeking behavior. The patient continues to have mood swings, irritability. OBSERVATION: VITAL SIGNS: Temperature 97.5, blood pressure 147/85, pulse 74, respirations 18, O2 sat 97%. Slept over 7 hours last night. CURRENT MEDICATIONS: The patient's medications reviewed. Also, lab reviewed. She is not having any side effects. The patient does complain of chronic pain. ASSESSMENT: 1. Bipolar disorder type 1, mixed, with psychotic features. 2. Schizoaffective disorder, bipolar type. 3. Cognitive disorder, mild. PLAN: To continue with the treatment. LOUIS CORONEL MD DR: SHERRILL/daphne JOB#: [id number] / [id number]
--- NOTE | 2018-09-21 01:42 | NUR ---
Nursing Note The patient was located in her room for shift assessment and medication pass. The patient was calm and cooperative during interactions with this nurse. The patient was compliant with her medications and took them whole. The patient was drowsy during interactions with this nurse but was appropriate. The patient is currently sleeping in her room.
[2018-09-21 06:01] VITALS: BP 121/69
[2018-09-21] MEDS: INSULIN LISPRO 300 UNITS/3 ML INSULN.PEN. SQ SCH ×3 (08:00→17:41)
[2018-09-21] MEDS: FAMOTIDINE 20 MG TABLET PO SCH (09:34)
[2018-09-21] MEDS: PIOGLITAZONE 15 MG TABLET. PO SCH (09:34)
[2018-09-21] MEDS: DULoxetine HCL 60 MG CAPSULE.DR PO SCH (09:34)
[2018-09-21] MEDS: FERROUS SULFATE 325 MG TABLET. PO SCH (09:34)
[2018-09-21] MEDS: OXcarbazepine 150 MG TABLET. PO SCH ×2 (09:35→12:45)
[2018-09-21] MEDS: ASCORBIC ACID 500 MG TABLET PO SCH (09:35)
[2018-09-21] MEDS: amLODIPine BESYLATE 10 MG TABLET PO SCH (09:35)
[2018-09-21] MEDS: GABAPENTIN 300 MG CAPSULE. PO SCH ×2 (09:35→20:34)
[2018-09-21] MEDS: levETIRAcetam 500 MG TABLET PO SCH ×2 (09:35→20:34)
[2018-09-21] MEDS: oxyCODONE/APAP 10/325 1 TAB TABLET PO SCH ×2 (09:38→20:34)
[2018-09-21] MEDS: BUDESONIDE 0.5 MG/2 ML NEBU NEB SCH ×2 (10:12→20:55)
--- NOTE | 2018-09-21 11:46 | NUR ---
patient sitting in day room watching tv. Calm, cooperative and compliant at this time. Patient denies delusions, hallucinations and none are evident at this time. Patient took medications whole with water. In wheelchair, can self ambulate in wheelchair.
[2018-09-21 19:00] VITALS: BP 166/78
[2018-09-21] MEDS: MIRTAZAPINE 7.5 MG TABLET. PO SCH (20:34)
[2018-09-21] MEDS: MELATONIN 3 MG TABLET PO SCH (20:34)
[2018-09-21] MEDS: INSULIN GLARGINE 300 UNITS/3 ML INSULN.PEN. SQ SCH (20:35)
--- NOTE | 2018-09-21 23:32 | NUR ---
Pt located in dayroom at shift change. Pt calm, compliant with medications and assessment. No evidence of hallucinations or delusions this evening.
--- NOTE | 2018-09-22 03:34 | PN ---
DATE: 09/21/2018 SUBJECTIVE: The patient was seen today, met with the staff, chart reviewed. The patient continues to exhibit behavior problems, hostile, indifferent and oppositional behaviors. Continues to exhibit mood swings and irritability. OBSERVATION: VITAL SIGNS: Temperature 97.4, blood pressure 121/69, pulse 84, respirations 20, O2 sat 96%. Slept about 7 hours last night. CURRENT MEDICATIONS: The patient's medications reviewed. Chart reviewed. No side effects to medications. ASSESSMENT: 1. Bipolar disorder type 1, mixed with psychotic features. 2. Schizoaffective disorder, bipolar type. 3. Cognitive disorder, mild. PLAN: To continue with the treatment. LOUIS CORONEL MD DR: SHERRILL/nts JOB#: [id number] / [id number]
[2018-09-22 06:02] VITALS: BP 152/67
[2018-09-22 07:26] LABS: BASO % 0 % (0-3); EOS # 0.1 x10^3/uL (0.0-0.7); EOS % 1 % (0-3); HEMATOCRIT 31.9 % (36.0-47.0); HEMOGLOBIN 10.2 g/dL (12.0-15.5); LYMPH # 1.6 x10^3/uL (1.0-4.8); LYMPH % 14 % (24-48); MEAN CORPUSCULAR HEMOGLOBIN 27 pg (25-35); MEAN CORPUSCULAR HGB CONC 32 g/dL (31-37); MEAN CORPUSCULAR VOLUME 84 fL (79-100); MONO # 0.9 x10^3/uL (0.0-1.1); MONO % 8 % (0-9); NEUT # 8.7 x10^3uL (1.8-7.7); NEUT % 77 % (31-73); PLATELET COUNT 299 x10^3/uL (140-400); RED BLOOD COUNT 3.79 x10^6/uL (3.50-5.40); RED CELL DISTRIBUTION WIDTH 15.8 % (11.5-14.5); WHITE BLOOD COUNT 11.3 x10^3/uL (4.0-11.0)
[2018-09-22 07:28] LABS: ALBUMIN 2.9 g/dL (3.4-5.0); ALBUMIN/GLOBULIN RATIO 0.6 (1.0-1.7); CALCIUM 9.9 mg/dL (8.5-10.1); GFR 65.9; POTASSIUM 4.2 mmol/L (3.5-5.1); TOTAL BILIRUBIN 0.2 mg/dL (0.2-1.0); TOTAL PROTEIN 7.6 g/dL (6.4-8.2)
[2018-09-22] MEDS: BUDESONIDE 0.5 MG/2 ML NEBU NEB SCH ×3 (08:00→20:42)
[2018-09-22 08:30] LABS: % BANDS 4 % (0-9); % BASOS 1 % (0-3); % EOS 1 % (0-5); % LYMPHS 21 % (24-48); % MONOS 1 % (0-10); % SEGS 72 % (35-66); HYPOCHROMIA PRESENT; PLT ESTIMATE ADEQUATE (ADEQUATE)
[2018-09-22 08:31] LABS: ANISOCYTOSIS PRESENT
--- NOTE | 2018-09-22 08:37 | NUR ---
WEEKLY ACTIVITY THERAPY NOTE Date of Admission: 09/15/2018 Date of AT Assessment: 09/18/2018 Goal aimed: To increase stress management and volunteer work. Initial Goal: Pt. will participate in five activity groups per week. Weekly progress towards goal: achieved Group participation level: moderate Behaviors observed: Pt. participation in groups has declined as the week has progressed; she is generally pleasant and engaged with therapists and activities but on 09/20 she was very slow to respond and her speech was unclear and nonsensical; this was reported to her nurse on 09/20 Plan: no change to goal
[2018-09-22] MEDS: INSULIN LISPRO 300 UNITS/3 ML INSULN.PEN. SQ SCH ×3 (09:00→17:40)
[2018-09-22] MEDS: DULoxetine HCL 60 MG CAPSULE.DR PO SCH (09:01)
[2018-09-22] MEDS: PIOGLITAZONE 15 MG TABLET. PO SCH (09:01)
[2018-09-22] MEDS: levETIRAcetam 500 MG TABLET PO SCH ×2 (09:02→20:38)
[2018-09-22] MEDS: FERROUS SULFATE 325 MG TABLET. PO SCH (09:02)
[2018-09-22] MEDS: amLODIPine BESYLATE 10 MG TABLET PO SCH (09:03)
[2018-09-22] MEDS: FAMOTIDINE 20 MG TABLET PO SCH (09:03)
[2018-09-22] MEDS: OXcarbazepine 150 MG TABLET. PO SCH ×2 (09:03→12:41)
[2018-09-22] MEDS: ASCORBIC ACID 500 MG TABLET PO SCH (09:03)
[2018-09-22] MEDS: GABAPENTIN 300 MG CAPSULE. PO SCH ×2 (09:05→20:38)
[2018-09-22] MEDS: oxyCODONE/APAP 10/325 1 TAB TABLET PO SCH ×2 (09:05→20:54)
--- NOTE | 2018-09-22 11:35 | NUR ---
Assumed care of pt @ approx 0700. Pt was sitting up at the table in the Dining Room for breakfast at the time of our initial encounter. Pt oriented to self only. Pt drowsy, but awake. Compliant w/meds and assessment. Denies pain. No signs of hallucinations, delusions, or paranoia noted. No behaviors. Pt currently sitting up in W/C in the Day Room, napping in her chair. No needs voiced @ this time. Will continue to monitor and assist pt in working towards her treatment and discharge goals.
--- NOTE | 2018-09-22 15:46 | NUR ---
WEEKLY NOTE: Pt is calm and cooperative on the unit. Pt takes her medications whole and is compliant with those. One hallucination/delusion was noted as pt thought she was going to fall into the tv. SW will continue to work with pt and pt family in making discharge plans.
[2018-09-22 16:39] VITALS: BP 136/84
--- NOTE | 2018-09-22 18:56 | PN ---
DATE: 09/22/2018 SUBJECTIVE: The patient was seen today, met with the staff, chart reviewed. The patient's behavior fluctuates. Lately, she has been sleeping most of the time, not in interacting with the staff. The patient's appetite decreased. Also, increased sleep. OBSERVATION: VITAL SIGNS: Temperature 98.9, blood pressure 152/67, pulse 58, respirations 20, O2 sat 95%. Slept about 7 hours last night. The patient's medications reviewed. Also, labs reviewed. ASSESSMENT: 1. Bipolar disorder type 1, mixed, with psychotic features. 2. Schizoaffective disorder, bipolar type. 3. Cognitive disorder, mild. PLAN: To continue with the treatment. LOUIS CORONEL MD DR: SHERRILL/daphne JOB#: [id number] / [id number]
[2018-09-22] MEDS: MELATONIN 3 MG TABLET PO SCH (20:38)
[2018-09-22] MEDS: MIRTAZAPINE 7.5 MG TABLET. PO SCH (20:39)
[2018-09-22] MEDS: INSULIN GLARGINE 300 UNITS/3 ML INSULN.PEN. SQ SCH (20:43)
--- NOTE | 2018-09-22 22:57 | NUR ---
PT in bed at time of assessment and medication administration. PT compliant with both. PT calm and cooperative.
[2018-09-23 06:42] VITALS: BP 139/62
[2018-09-23] MEDS: INSULIN LISPRO 300 UNITS/3 ML INSULN.PEN. SQ SCH ×3 (08:00→17:23)
[2018-09-23] MEDS: DULoxetine HCL 60 MG CAPSULE.DR PO SCH (08:54)
[2018-09-23] MEDS: ASCORBIC ACID 500 MG TABLET PO SCH (08:54)
[2018-09-23] MEDS: PIOGLITAZONE 15 MG TABLET. PO SCH (08:55)
[2018-09-23] MEDS: levETIRAcetam 500 MG TABLET PO SCH ×2 (08:55→20:41)
[2018-09-23] MEDS: CHOLECALCIFEROL (VITAMIN D3) 50,000 UNIT CAPSULE PO SCH (08:55)
[2018-09-23] MEDS: FERROUS SULFATE 325 MG TABLET. PO SCH (08:55)
[2018-09-23] MEDS: amLODIPine BESYLATE 10 MG TABLET PO SCH (08:55)
[2018-09-23] MEDS: OXcarbazepine 150 MG TABLET. PO SCH ×2 (08:55→12:25)
[2018-09-23] MEDS: FAMOTIDINE 20 MG TABLET PO SCH (08:55)
[2018-09-23] MEDS: GABAPENTIN 300 MG CAPSULE. PO SCH ×2 (08:58→20:41)
[2018-09-23] MEDS: oxyCODONE/APAP 10/325 1 TAB TABLET PO SCH ×2 (08:58→20:41)
--- NOTE | 2018-09-23 09:00 | NUR ---
Assumed care of pt approx 0700. Pt in day room at time of medication administration. Pt compliant, however pt very passive, behaving as if she could not do anything for herself to include taking the cup to drink water to wash down her meds. Pt also appeared tired. Will continue to monitor.
[2018-09-23] MEDS: BUDESONIDE 0.5 MG/2 ML NEBU NEB SCH ×2 (10:07→21:10)
[2018-09-23 16:05] VITALS: BP 124/64
[2018-09-23] MEDS: MIRTAZAPINE 7.5 MG TABLET. PO SCH (20:41)
[2018-09-23] MEDS: INSULIN GLARGINE 300 UNITS/3 ML INSULN.PEN. SQ SCH (20:43)
[2018-09-23] MEDS: MELATONIN 3 MG TABLET PO SCH (20:45)
--- NOTE | 2018-09-23 21:36 | PN ---
DATE: 09/23/2018 SUBJECTIVE: The patient was seen today, met with the staff, chart reviewed. The patient continues to have behavior problems, withdrawn, isolative, non-communicating. The patient's medications reviewed. The patient apparently has no change in medications recently to explain some of her behavior because the patient has been withdrawn to herself most of the time, not interacting with the staff. OBSERVATION: VITAL SIGNS: Temperature 97.4, blood pressure 124/64, respirations 16, pulse 79 and O2 sat 97%. Slept about almost 9 hours last night. The patient is not having any physical complaints. LABORATORY DATA: The patient's lab reviewed. ASSESSMENT: 1. Bipolar disorder type 1, mixed, with psychotic features. 2. Schizoaffective disorder, bipolar type. 3. Cognitive disorder, mild. PLAN: To continue with the treatment. LOUIS CORONEL MD DR: SHERRILL/daphne JOB#: [id number] / [id number]
[2018-09-24 05:10] VITALS: BP 108/63
[2018-09-24] MEDS: INSULIN LISPRO 300 UNITS/3 ML INSULN.PEN. SQ SCH ×3 (08:00→17:10)
[2018-09-24] MEDS: FERROUS SULFATE 325 MG TABLET. PO SCH (08:10)
[2018-09-24] MEDS: DULoxetine HCL 60 MG CAPSULE.DR PO SCH (08:10)
[2018-09-24] MEDS: levETIRAcetam 500 MG TABLET PO SCH ×2 (08:10→19:48)
[2018-09-24] MEDS: GABAPENTIN 300 MG CAPSULE. PO SCH ×2 (08:10→19:48)
[2018-09-24] MEDS: PIOGLITAZONE 15 MG TABLET. PO SCH (08:10)
[2018-09-24] MEDS: amLODIPine BESYLATE 10 MG TABLET PO SCH (08:11)
[2018-09-24] MEDS: OXcarbazepine 150 MG TABLET. PO SCH ×2 (08:12→12:14)
[2018-09-24] MEDS: oxyCODONE/APAP 10/325 1 TAB TABLET PO SCH ×2 (08:12→19:50)
[2018-09-24] MEDS: FAMOTIDINE 20 MG TABLET PO SCH (08:12)
[2018-09-24] MEDS: ASCORBIC ACID 500 MG TABLET PO SCH (08:13)
[2018-09-24] MEDS: BUDESONIDE 0.5 MG/2 ML NEBU NEB SCH ×2 (11:23→19:58)
--- NOTE | 2018-09-24 13:10 | NUR ---
Assumed care of pt @ approx 0700. Pt was sitting up at the table in the Dining Room for breakfast at the time of our initial encounter. Pt oriented to self only. Pt drowsy, but awake. Compliant w/meds but refused assessment. No signs of hallucinations, delusions, or paranoia noted. No behaviors so far this shift. Pt currently sitting up in W/C in the Day Room, watching other pts. No needs voiced @ this time. Will continue to monitor and assist pt in working towards her treatment and discharge goals.
[2018-09-24 16:16] VITALS: BP 138/90
[2018-09-24] MEDS: MIRTAZAPINE 7.5 MG TABLET. PO SCH (19:48)
[2018-09-24] MEDS: MELATONIN 3 MG TABLET PO SCH (19:48)
[2018-09-24] MEDS: INSULIN GLARGINE 300 UNITS/3 ML INSULN.PEN. SQ SCH (19:49)
--- NOTE | 2018-09-24 23:29 | RAD ---
Single view chest 09/24/2018 CLINICAL INDICATION: Cough with leukocytosis. COMPARISON: Chest 02/21/2018 FINDINGS: Cardiac and mediastinal silhouettes are unremarkable. No pleural effusion, pneumothorax or focal consolidation. IMPRESSION: No acute cardiopulmonary abnormality. Electronically signed by: Eh Gordon MD (09/24/2018 11:26 PM) [facility] [place]
--- NOTE | 2018-09-25 00:29 | NUR ---
Behavior Intervention Response and Plan: BIRP Note: Behavior: Assumed Care of patient, patient located in Day Room at shift change. Patient exhibited the following behavior Calm, Disorganized, Drowsy. Brief assessment on rounds of vital signs, medication needs, lab studies, and pain. Treatment plan problems 1 and 2. Intervention: Patient assessed and the following interventions initiated safety checks 15 Minute Checks Cognitive Assessment , Head to toe Assessment , Medications. Response: After interactions and interventions patient responded in the following manner, Calm , Compliant ,Cooperative. Continue to assess behaviors and condition will continue to monitor throughout the shift as needed. Patient educated on ADL's, and hand hygiene. 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 Continue to assess patient for changes in above assessment. Monitor for medication needs, pain, and safety concerns. Hourly rounding performed to ensure safe environment.
[2018-09-25 05:52] VITALS: BP 122/66
[2018-09-25] MEDS: INSULIN LISPRO 300 UNITS/3 ML INSULN.PEN. SQ SCH ×3 (08:00→17:10)
[2018-09-25] MEDS: DULoxetine HCL 60 MG CAPSULE.DR PO SCH (08:57)
[2018-09-25] MEDS: levETIRAcetam 500 MG TABLET PO SCH ×2 (08:57→19:51)
[2018-09-25] MEDS: FERROUS SULFATE 325 MG TABLET. PO SCH (08:57)
[2018-09-25] MEDS: GABAPENTIN 300 MG CAPSULE. PO SCH ×2 (08:57→19:51)
[2018-09-25] MEDS: PIOGLITAZONE 15 MG TABLET. PO SCH (08:57)
[2018-09-25] MEDS: amLODIPine BESYLATE 10 MG TABLET PO SCH (08:58)
[2018-09-25] MEDS: FAMOTIDINE 20 MG TABLET PO SCH (08:58)
[2018-09-25] MEDS: OXcarbazepine 150 MG TABLET. PO SCH ×2 (09:03→13:31)
[2018-09-25] MEDS: ASCORBIC ACID 500 MG TABLET PO SCH (09:03)
[2018-09-25] MEDS: oxyCODONE/APAP 10/325 1 TAB TABLET PO SCH ×2 (09:03→19:51)
[2018-09-25 09:36] LABS: BACTERIA,URINE MANY /HPF (0-FEW); BILIRUBIN,URINE NEG (NEG); CLARITY,URINE TURBID; COLOR,URINE YELLOW; GLUCOSE,URINE NEG (NEG); NITRITE,URINE NEG (NEG); UROBILINOGEN,URINE 0.2 mg/dL (0.2 mg/dL); WBC,URINE >40 /HPF (0-4)
[2018-09-25 09:37] LABS: SQUAMOUS EPITHELIAL CELL,UR FEW /LPF
[2018-09-25 11:31] LABS: BASO % 0 % (0-3); EOS # 0.1 x10^3/uL (0.0-0.7); EOS % 1 % (0-3); HEMATOCRIT 32.8 % (36.0-47.0); HEMOGLOBIN 10.5 g/dL (12.0-15.5); LYMPH # 1.9 x10^3/uL (1.0-4.8); LYMPH % 18 % (24-48); MEAN CORPUSCULAR HEMOGLOBIN 27 pg (25-35); MEAN CORPUSCULAR HGB CONC 32 g/dL (31-37); MEAN CORPUSCULAR VOLUME 84 fL (79-100); MONO # 0.7 x10^3/uL (0.0-1.1); MONO % 6 % (0-9); NEUT # 7.8 x10^3uL (1.8-7.7); NEUT % 74 % (31-73); PLATELET COUNT 299 x10^3/uL (140-400); RED BLOOD COUNT 3.91 x10^6/uL (3.50-5.40); RED CELL DISTRIBUTION WIDTH 15.7 % (11.5-14.5); WHITE BLOOD COUNT 10.6 x10^3/uL (4.0-11.0)
[2018-09-25] MEDS: BUDESONIDE 0.5 MG/2 ML NEBU NEB SCH ×2 (11:44→21:49)
[2018-09-25 11:47] LABS: ALBUMIN 2.9 g/dL (3.4-5.0); ALBUMIN/GLOBULIN RATIO 0.6 (1.0-1.7); CALCIUM 9.3 mg/dL (8.5-10.1); CREATININE 1.3 mg/dL (0.6-1.0); GFR 48.7; POTASSIUM 4.2 mmol/L (3.5-5.1); TOTAL BILIRUBIN 0.2 mg/dL (0.2-1.0); TOTAL PROTEIN 7.9 g/dL (6.4-8.2)
--- NOTE | 2018-09-25 13:44 | NUR ---
Pt is calm, cooperative, compliant. No hallucinations, delusions, denies SI/HI. No agitation or aggression. Pt is compliant with medication and assessment.
--- NOTE | 2018-09-25 16:36 | PN ---
DATE: 09/25/2018 SUBJECTIVE: The patient was seen today, met with the staff, chart reviewed. Staff reports some improvement in her behavior. She is alert, pleasant, interacting with the staff and residents. OBSERVATION: VITAL SIGNS: Temperature 98.1, blood pressure 131/80, pulse 66, respirations 18, O2 sat 98%. Slept about 8 hours last night. The patient's appetite improved. MEDICATIONS: Reviewed. LABORATORY DATA: Reviewed. The patient is not having any side effects to the medications. ASSESSMENT: 1. Bipolar disorder type 1, mixed with psychotic features, Schizoaffective disorder, bipolar type. 2. Cognitive disorder, mild. PLAN: Continue with the treatment. LOUIS CORONEL MD DR: SHERRILL/daphne JOB#: [id number] / [id number]
[2018-09-25 17:20] VITALS: BP 136/75
[2018-09-25] MEDS: MIRTAZAPINE 7.5 MG TABLET. PO SCH (19:51)
[2018-09-25] MEDS: MELATONIN 3 MG TABLET PO SCH (19:51)
[2018-09-25] MEDS: INSULIN GLARGINE 300 UNITS/3 ML INSULN.PEN. SQ SCH (19:53)
--- NOTE | 2018-09-25 23:00 | NUR ---
Nursing Note Pt put herself on the floor right after shift change, slid out of the chair to the floor with no injury. Attention seeking and irritable this pm. Med compliant and cooperative. Denies complaints now in bed resting.
[2018-09-26 06:14] VITALS: BP 146/86
[2018-09-26] MEDS: INSULIN LISPRO 300 UNITS/3 ML INSULN.PEN. SQ SCH ×3 (08:00→17:41)
[2018-09-26] MEDS: GABAPENTIN 300 MG CAPSULE. PO SCH ×2 (09:50→20:42)
[2018-09-26] MEDS: levETIRAcetam 500 MG TABLET PO SCH ×2 (09:50→20:42)
[2018-09-26] MEDS: FERROUS SULFATE 325 MG TABLET. PO SCH (09:50)
[2018-09-26] MEDS: DULoxetine HCL 60 MG CAPSULE.DR PO SCH (09:50)
[2018-09-26] MEDS: PIOGLITAZONE 15 MG TABLET. PO SCH (09:50)
[2018-09-26] MEDS: amLODIPine BESYLATE 10 MG TABLET PO SCH (09:51)
[2018-09-26] MEDS: FAMOTIDINE 20 MG TABLET PO SCH (09:51)
[2018-09-26] MEDS: oxyCODONE/APAP 10/325 1 TAB TABLET PO SCH ×2 (09:52→20:45)
[2018-09-26] MEDS: OXcarbazepine 150 MG TABLET. PO SCH ×2 (09:52→12:57)
[2018-09-26] MEDS: ASCORBIC ACID 500 MG TABLET PO SCH (09:52)
--- NOTE | 2018-09-26 10:59 | NUR ---
Pt is cooperative, compliant, calm and appropriate. No hallucinations, delusions, agitation, or aggression at this time.
[2018-09-26] MEDS: BUDESONIDE 0.5 MG/2 ML NEBU NEB SCH ×2 (11:16→20:54)
--- NOTE | 2018-09-26 11:33 | NUR ---
GURPREET spoke to Florence at [facility] to update her on pt. progress. Florence share she would be looking for a better placement for the pt. upon her return, to better meet her needs and to be closer to her daughter. GURPREET gave Florence a couple of facilities to contact. GURPREET spoke to pt. daughter, Lashae, to update her on pt. progress and to remind her of treatment team this .
[2018-09-26 16:00] VITALS: BP 145/77
--- NOTE | 2018-09-26 17:37 | NUR ---
Dr. Mcguire informed of FSBS. No new orders at this time.
[2018-09-26] MEDS: oxyCODONE/APAP 10/325 1 TAB TABLET PO PRN (18:17)
--- NOTE | 2018-09-26 20:00 | PDOC ---
Exam Note: Neal Note: Please also refer to the separate dictated note~for this date of service dictated separately.~Patient seen individually. Discussed the patient with Nursing staff reviewed the chart.~Reviewed interim history and current functioning. Reviewed vital signs,~Labs/ Radiology~and current medications noted below. Continue current treatment with the changes noted in the dictated addendum note Assessment: Vital Signs: Vital Signs Date Time Temp Pulse Resp B/P (MAP) Pulse Ox O2 Delivery O2 Flow Rate FiO2 09/26/18 16:00 97.9 84 16 145/77 (99) 99 09/26/18 11:16 Room Air I&O Intake and Output 09/26/18 07:00 Intake Total 1080 ml Balance 1080 ml Intake Oral 1080 ml Labs: Laboratory Tests Test 09/26/18 07:22 09/26/18 11:51 09/26/18 17:13 09/26/18 19:21 Glucose (Fingerstick) 74 mg/dL (70-99) 168 mg/dL (70-99) H 371 mg/dL (70-99) H 280 mg/dL (70-99) H Current Medications: Meds: Current Medications Acetaminophen (Tylenol) 650 mg PRN Q6HRS PRN PO PAIN / TEMP Last administered on 09/26/18at 12:57; Start 09/15/18 at 21:30 Albuterol Sulfate (Ventolin) 2.5 mg PRN Q4HRS PRN NEB Dyspnea; Start 09/15/18 at 21:30 Diclofenac Sodium (Voltaren) 4 sam PRN QID PRN TP R Knee Pain; Start 09/15/18 at 21:30 Dicyclomine HCl (Bentyl) 10 mg PRN Q8HRS PRN PO Bowel Cramps; Start 09/15/18 at 21:30 Ferrous Sulfate (Feosol) 325 mg DAILY PO Last administered on 09/26/18at 09:50 ; Start 09/16/18 at 09:00 Gabapentin (Neurontin) 300 mg BID PO Last administered on 09/26/18at 09:50; Start 09/16/18 at 09:00 Hydrocortisone (Proctosol-Hc) 1 sam PRN Q24HRS PRN RC hemorrhoids; Start at 21:30 Al Hydroxide/Mg Hydroxide (Mylanta Plus Xs) 15 ml PRN AFTMEALHC PRN PO DYSPEPSIA; Start 09/15/18 at 21:30 Magnesium Hydroxide (Milk Of Magnesia) 2,400 mg PRN QHS PRN PO CONSTIPATION; Start 09/15/18 at 21:30 Multi-Ingredient Ointment (Analgesic [place]) 1 sam PRN QID PRN TP MUSCLE PAIN; Start 09/15/18 at 21:30 Nitroglycerin (Nitrostat) 0.4 mg PRN Q5MIN PRN SL CHEST PAIN; Start 09/15/18 at 21:30 Nystatin (Nystop) 1 sam PRN TID PRN TP REDNESS; Start 09/15/18 at 21:30 Oxycodone/ Acetaminophen (Percocet 10/325) 1 tab BID PO Last administered on at 09:52; Start 09/16/18 at 09:00 Oxycodone/ Acetaminophen (Percocet 10/325) 1 tab PRN Q4HRS PRN PO PAIN Last administered on 09/26/18at 18:17; Start 09/15/18 at 21:30 Amlodipine Besylate (Norvasc) 10 mg DAILY PO Last administered on 09/26/18at 09 :51; Start 09/16/18 at 09:00 Ascorbic Acid (Vitamin C) 500 mg DAILY PO Last administered on 09/26/18at 09:52 ; Start 09/16/18 at 09:00 Non-Formulary Medication (Budesonide ) 0.5 mg RTBID NEB ; Start 09/16/18 at 08: 00; Stop 09/16/18 at 08:00; Status DC Artificial Tears (Artificial Tears) 1 drop PRN TID PRN OU DRY EYE; Start at 21:45 Duloxetine HCl (Cymbalta) 60 mg DAILY PO Last administered on 09/26/18at 09:50 ; Start 09/16/18 at 09:00 Famotidine (Pepcid) 20 mg DAILY PO Last administered on 09/26/18at 09:51; Start 09/15/18 at 09:00 Guaifenesin (Robitussin Dm) 10 ml PRN Q4HRS PRN PO COUGH; Start 09/15/18 at 21: 45 Non-Formulary Medication (Insulin Aspart (Novolog Flexpen)) 200-250 2units 251- ... TIDWMEALHC SQ ; Start 09/16/18 at 08:00; Status UNV Levetiracetam (Keppra) 500 mg BID PO Last administered on 09/26/18at 09:50; Start 09/16/18 at 09:00 Loperamide HCl (Imodium) 2 mg PRN Q4HRS PRN PO DIARRHEA; Start 09/15/18 at 21: 45 Melatonin 6 mg QHS PO Last administered on 09/25/18at 19:51; Start 09/16/18 at 21:00 Mirtazapine (Remeron) 7.5 mg QHS PO Last administered on 09/25/18 19:51; Start 09/16/18 at 21:00 Ondansetron HCl (Zofran Odt) 4 mg PRN Q4HRS PRN PO NAUSEA/VOMITING; Start 09/15 at 21:45 Oxcarbazepine (Trileptal) 150 mg BID@0900,1300 PO Last administered on at 12:57; Start 09/16/18 at 09:00 Pioglitazone HCl (Actos) 15 mg DAILY PO Last administered on 09/26/18at 09:50; Start 09/16/18 at 09:00 Budesonide (Pulmicort) 0.5 mg RTBID NEB Last administered on 09/26/18at 11:16; Start 09/16/18 at 08:00 Insulin Human Lispro (HumaLOG) 0-5 UNITS TIDWMEALS SQ Last administered on at 17:41; Start 09/16/18 at 08:00 Insulin Glargine (Lantus) 10 units QHS SQ Last administered on 09/17/18at 19:49 ; Start 09/16/18 at 21:00; Stop 09/18/18 at 15:41; Status DC Vitamin D (Vitamin D3) 50,000 unit WEEKLY PO Last administered on 09/23/18at 08 :55; Start 09/16/18 at 16:15 Insulin Glargine (Lantus) 20 units QHS SQ Last administered on 09/25/18 19:53 ; Start 09/18/18 at 21:00 Active Scripts Active Reported Trileptal (Oxcarbazepine) 150 Mg Tablet 150 Mg PO BID@0900,1300 Zyprexa (Olanzapine) 5 Mg Tablet 5 Mg PO PRN Q2HR PRN dissolve in mouth. Max 20mg/24hrs Mirtazapine 15 Mg Tablet 7.5 Mg PO QHS Proctosol-Hc (Hydrocortisone) 28.35 Gm Cream..g. 1 Sam RC PRN Q24HRS PRN Vitamin C (Ascorbic Acid) 500 Mg Capsule 500 Mg PO DAILY Novolog Flexpen (Insulin Aspart) 100 Unit/1 Ml Insuln.pen 2-10 Units SQ TIDWMEALHC BS 200-250 2 units BS 251-300 4 units BS 301-350 8 units BS 351-400 10 units BS >400 CALL Cymbalta (Duloxetine Hcl) 60 Mg Capsule.dr 60 Mg PO DAILY Famotidine 20 Mg Tablet 20 Mg PO DAILY Mag-Al Plus Xs Suspension (Mag Hydrox/Al Hydrox/Simeth) 30 Ml Oral.susp 15 Ml PO PRN AFTMEALHC PRN Robitussin Cough-Chest Dm Liq (Guaifenesin/Dextromethorphan) 237 Ml Liquid 10 Ml PO PRN Q4HRS PRN Percocet 10-325 Mg Tablet (Oxycodone Hcl/Acetaminophen) 1 Each Tablet 1 Tab PO PRN Q4HRS PRN Percocet 10-325 Mg Tablet (Oxycodone Hcl/Acetaminophen) 1 Each Tablet 1 Tab PO BID Ondansetron Hcl 4 Mg Tablet 4 Mg PO PRN Q4HRS PRN Nystatin 15 Gm Powder 1 Sam TP PRN TID PRN Nitrostat (Nitroglycerin) 0.4 Mg Tab.subl 0.4 Mg SL PRN Q5MIN PRN HOld for SBP less than or equal to 90mmHG. Call Provider for shest pain unrelieved by 1 sublingual nitro, may repeat x2 if chest pain persists. Melatonin 5 Mg Tablet (Melatonin/Pyridoxine) 1 Each Tablet 6 Mg PO QHS Loperamide (Loperamide Hcl) 2 Mg Tablet 2 Mg PO PRN Q4HRS PRN MDD 16mg Keppra (Levetiracetam) 500 Mg Tablet 500 Mg PO BID Ferrous Sulfate 325 Mg Tablet 325 Mg PO DAILY Neurontin (Gabapentin) 300 Mg Capsule 300 Mg PO BID Voltaren (Diclofenac Sodium) 100 Gm Gel..gram. 4 Sam TP PRN QID PRN Budesonide 0.5 Mg/2 Ml Ampul.neb 0.5 Mg NEB RTBID Dicyclomine Hcl 10 Mg Capsule 10 Mg PO PRN Q8HRS PRN Artificial Tears Eye Drops (Dextran 70/Hypromellose) 15 Ml Drops 1 Drop OU TID PRN Anusol-Hc (Hydrocortisone Acetate) 25 Mg Supp.rect 25 Mg RC PRN Q12HR PRN Norvasc (Amlodipine Besylate) 10 Mg Tablet 10 Mg PO DAILY Tylenol (Acetaminophen) 325 Mg Tablet 650 Mg PO PRN Q6HRS PRN Max acetaminophen dose os 4000mg/24hrs from all sources Albuterol Sulfate Neb Soln (Albuterol Sulfate) 2.5 Mg/3 Ml Vial.neb 2.5 Mg NEB PRN Q4HRS PRN Milk Of Magnesia (Magnesium Hydroxide) 400 Mg/5 Ml Oral.susp 2,400 Mg PO PRN QHS PRN Actos (Pioglitazone Hcl) 15 Mg Tablet 15 Mg PO DAILY I have reviewed the current psychotropics carefully including drug interactions. Risk benefit ratio favors no change other than as noted in my dictated progress note. Diagnosis: Problems: (1) Anxiety disorder (2) Impulse control disorder (3) Major depressive disorder, recurrent episode (4) Mild cognitive impairment BEA SAWANT MD Sep 26, 2018 20:00
[2018-09-26] MEDS: MELATONIN 3 MG TABLET PO SCH (20:42)
[2018-09-26] MEDS: MIRTAZAPINE 7.5 MG TABLET. PO SCH (20:42)
[2018-09-26] MEDS: INSULIN GLARGINE 300 UNITS/3 ML INSULN.PEN. SQ SCH (20:49)
--- NOTE | 2018-09-26 23:31 | NUR ---
Nursing Note The patient was located in her room for assessment and medication pass. The patient was compliant with her medications and took them whole. the patient was appropriate during interactions with this nurse. The patient remains in her room at this time sleeping.
[2018-09-27 06:40] VITALS: BP 146/80
[2018-09-27] MEDS: INSULIN LISPRO 300 UNITS/3 ML INSULN.PEN. SQ SCH ×3 (08:00→17:07)
[2018-09-27] MEDS: FERROUS SULFATE 325 MG TABLET. PO SCH (09:10)
[2018-09-27] MEDS: DULoxetine HCL 60 MG CAPSULE.DR PO SCH (09:10)
[2018-09-27] MEDS: OXcarbazepine 150 MG TABLET. PO SCH ×2 (09:10→12:48)
[2018-09-27] MEDS: levETIRAcetam 500 MG TABLET PO SCH ×2 (09:11→20:44)
[2018-09-27] MEDS: PIOGLITAZONE 15 MG TABLET. PO SCH (09:11)
[2018-09-27] MEDS: amLODIPine BESYLATE 10 MG TABLET PO SCH (09:11)
[2018-09-27] MEDS: FAMOTIDINE 20 MG TABLET PO SCH (09:11)
[2018-09-27] MEDS: ASCORBIC ACID 500 MG TABLET PO SCH (09:11)
[2018-09-27] MEDS: GABAPENTIN 300 MG CAPSULE. PO SCH ×2 (09:13→20:44)
[2018-09-27] MEDS: oxyCODONE/APAP 10/325 1 TAB TABLET PO SCH ×2 (09:13→20:45)
[2018-09-27] MEDS: BUDESONIDE 0.5 MG/2 ML NEBU NEB SCH ×2 (10:57→20:30)
--- NOTE | 2018-09-27 11:51 | NUR ---
Assumed care of pt at approx 0700. First encounter in day room; pt calm, drowsy, withdrawn, medication compliant, alert to self only. No delusions, hallucinations, aggression or agitation noted. Will continue to monitor.
--- NOTE | 2018-09-27 16:20 | NUR ---
Behavior Intervention Response and Plan: BIRP Note: Behavior: Assumed Care of patient, patient located in Day Room at shift change. Patient exhibited the following behavior Drowsy, Compliant, Cooperative. Brief assessment on rounds of vital signs, medication needs, lab studies, and pain. Treatment plan problems alteration in mood and fall risk. Intervention: Patient assessed and the following interventions initiated safety checks 15 Minute Checks Head to toe Assessment , Cognitive Assessment , Medications. Response: After interactions and interventions patient responded in the following manner, Calm , Compliant ,Cooperative. Continue to assess behaviors and condition will continue to monitor throughout the shift as needed. Patient educated on ADL's, and hand hygiene. Plan: Continue to monitor Master Treatment Plan for patient's progress toward short term goals of Decreased Anxiety, Decreased Aggression, jail goals to return to previous living setting vs placement. Continue to assess patient for changes in above assessment. Monitor for medication needs, pain, and safety concerns. Hourly rounding performed to ensure safe environment.
[2018-09-27 16:33] VITALS: BP 126/82
--- NOTE | 2018-09-27 19:53 | PDOC ---
Exam Note: Neal Note: Please also refer to the separate dictated note~for this date of service dictated separately.~Patient seen individually. Discussed the patient with Nursing staff reviewed the chart.~Reviewed interim history and current functioning. Reviewed vital signs,~Labs/ Radiology~and current medications noted below. Continue current treatment with the changes noted in the dictated addendum note Assessment: Vital Signs: Vital Signs Date Time Temp Pulse Resp B/P (MAP) Pulse Ox O2 Delivery O2 Flow Rate FiO2 09/27/18 16:33 97.9 83 20 126/82 (97) 93 09/27/18 10:57 Room Air I&O Intake and Output 09/27/18 07:00 Intake Total 840 ml Balance 840 ml Intake Oral 840 ml # Voids 1 Labs: Laboratory Tests Test 09/27/18 07:24 09/27/18 07:42 09/27/18 11:53 09/27/18 16:31 Glucose (Fingerstick) 62 mg/dL (70-99) L 81 mg/dL (70-99) 321 mg/dL (70-99) H 306 mg/dL (70-99) H Test 09/27/18 19:31 Glucose (Fingerstick) 275 mg/dL (70-99) H Current Medications: Meds: Current Medications Acetaminophen (Tylenol) 650 mg PRN Q6HRS PRN PO PAIN / TEMP Last administered on 09/26/18at 12:57; Start 09/15/18 at 21:30 Albuterol Sulfate (Ventolin) 2.5 mg PRN Q4HRS PRN NEB Dyspnea; Start 09/15/18 at 21:30 Diclofenac Sodium (Voltaren) 4 sam PRN QID PRN TP R Knee Pain; Start 09/15/18 at 21:30 Dicyclomine HCl (Bentyl) 10 mg PRN Q8HRS PRN PO Bowel Cramps; Start 09/15/18 at 21:30 Ferrous Sulfate (Feosol) 325 mg DAILY PO Last administered on 09/27/18at 09:10 ; Start 09/16/18 at 09:00 Gabapentin (Neurontin) 300 mg BID PO Last administered on 09/27/18at 09:13; Start 09/16/18 at 09:00 Hydrocortisone (Proctosol-Hc) 1 sam PRN Q24HRS PRN RC hemorrhoids; Start at 21:30 Al Hydroxide/Mg Hydroxide (Mylanta Plus Xs) 15 ml PRN AFTMEALHC PRN PO DYSPEPSIA; Start 09/15/18 at 21:30 Magnesium Hydroxide (Milk Of Magnesia) 2,400 mg PRN QHS PRN PO CONSTIPATION; Start 09/15/18 at 21:30 Multi-Ingredient Ointment (Analgesic [place]) 1 sam PRN QID PRN TP MUSCLE PAIN; Start 09/15/18 at 21:30 Nitroglycerin (Nitrostat) 0.4 mg PRN Q5MIN PRN SL CHEST PAIN; Start 09/15/18 at 21:30 Nystatin (Nystop) 1 sam PRN TID PRN TP REDNESS; Start 09/15/18 at 21:30 Oxycodone/ Acetaminophen (Percocet 10/325) 1 tab BID PO Last administered on at 09:13; Start 09/16/18 at 09:00 Oxycodone/ Acetaminophen (Percocet 10/325) 1 tab PRN Q4HRS PRN PO PAIN Last administered on 09/26/18at 18:17; Start 09/15/18 at 21:30 Amlodipine Besylate (Norvasc) 10 mg DAILY PO Last administered on 09/27/18at 09 :11; Start 09/16/18 at 09:00 Ascorbic Acid (Vitamin C) 500 mg DAILY PO Last administered on 09/27/18at 09:11 ; Start 09/16/18 at 09:00 Non-Formulary Medication (Budesonide ) 0.5 mg RTBID NEB ; Start 09/16/18 at 08: 00; Stop 09/16/18 at 08:00; Status DC Artificial Tears (Artificial Tears) 1 drop PRN TID PRN OU DRY EYE; Start at 21:45 Duloxetine HCl (Cymbalta) 60 mg DAILY PO Last administered on 09/27/18at 09:10 ; Start 09/16/18 at 09:00 Famotidine (Pepcid) 20 mg DAILY PO Last administered on 09/27/18at 09:11; Start 09/15/18 at 09:00 Guaifenesin (Robitussin Dm) 10 ml PRN Q4HRS PRN PO COUGH; Start 09/15/18 at 21: 45 Non-Formulary Medication (Insulin Aspart (Novolog Flexpen)) 200-250 2units 251- ... TIDWMEALHC SQ ; Start 09/16/18 at 08:00; Status UNV Levetiracetam (Keppra) 500 mg BID PO Last administered on 09/27/18at 09:11; Start 09/16/18 at 09:00 Loperamide HCl (Imodium) 2 mg PRN Q4HRS PRN PO DIARRHEA; Start 09/15/18 at 21: 45 Melatonin 6 mg QHS PO Last administered on 09/26/18at 20:42; Start 09/16/18 at 21:00 Mirtazapine (Remeron) 7.5 mg QHS PO Last administered on 09/26/18at 20:42; Start 09/16/18 at 21:00 Ondansetron HCl (Zofran Odt) 4 mg PRN Q4HRS PRN PO NAUSEA/VOMITING; Start 09/15 at 21:45 Oxcarbazepine (Trileptal) 150 mg BID@0900,1300 PO Last administered on at 12:48; Start 09/16/18 at 09:00; Stop 09/27/18 at 16:40; Status DC Pioglitazone HCl (Actos) 15 mg DAILY PO Last administered on 09/27/18at 09:11; Start 09/16/18 at 09:00 Budesonide (Pulmicort) 0.5 mg RTBID NEB Last administered on 09/27/18at 10:57; Start 09/16/18 at 08:00 Insulin Human Lispro (HumaLOG) 0-5 UNITS TIDWMEALS SQ Last administered on at 17:07; Start 09/16/18 at 08:00 Insulin Glargine (Lantus) 10 units QHS SQ Last administered on 09/17/18at 19:49 ; Start 09/16/18 at 21:00; Stop 09/18/18 at 15:41; Status DC Vitamin D (Vitamin D3) 50,000 unit WEEKLY PO Last administered on 09/23/18at 08 :55; Start 09/16/18 at 16:15 Insulin Glargine (Lantus) 20 units QHS SQ Last administered on 09/26/18at 20:49 ; Start 09/18/18 at 21:00 Oxcarbazepine (Trileptal) 150 mg DAILY PO ; Start 09/28/18 at 09:00 Oxcarbazepine (Trileptal) 300 mg 1300 PO ; Start 09/28/18 at 13:00 Active Scripts Active Reported Trileptal (Oxcarbazepine) 150 Mg Tablet 150 Mg PO BID@0900,1300 Zyprexa (Olanzapine) 5 Mg Tablet 5 Mg PO PRN Q2HR PRN dissolve in mouth. Max 20mg/24hrs Mirtazapine 15 Mg Tablet 7.5 Mg PO QHS Proctosol-Hc (Hydrocortisone) 28.35 Gm Cream..g. 1 Sam RC PRN Q24HRS PRN Vitamin C (Ascorbic Acid) 500 Mg Capsule 500 Mg PO DAILY Novolog Flexpen (Insulin Aspart) 100 Unit/1 Ml Insuln.pen 2-10 Units SQ TIDWMEALHC BS 200-250 2 units BS 251-300 4 units BS 301-350 8 units BS 351-400 10 units BS >400 CALL Cymbalta (Duloxetine Hcl) 60 Mg Capsule.dr 60 Mg PO DAILY Famotidine 20 Mg Tablet 20 Mg PO DAILY Mag-Al Plus Xs Suspension (Mag Hydrox/Al Hydrox/Simeth) 30 Ml Oral.susp 15 Ml PO PRN AFTMEALHC PRN Robitussin Cough-Chest Dm Liq (Guaifenesin/Dextromethorphan) 237 Ml Liquid 10 Ml PO PRN Q4HRS PRN Percocet 10-325 Mg Tablet (Oxycodone Hcl/Acetaminophen) 1 Each Tablet 1 Tab PO PRN Q4HRS PRN Percocet 10-325 Mg Tablet (Oxycodone Hcl/Acetaminophen) 1 Each Tablet 1 Tab PO BID Ondansetron Hcl 4 Mg Tablet 4 Mg PO PRN Q4HRS PRN Nystatin 15 Gm Powder 1 Sam TP PRN TID PRN Nitrostat (Nitroglycerin) 0.4 Mg Tab.subl 0.4 Mg SL PRN Q5MIN PRN HOld for SBP less than or equal to 90mmHG. Call Provider for shest pain unrelieved by 1 sublingual nitro, may repeat x2 if chest pain persists. Melatonin 5 Mg Tablet (Melatonin/Pyridoxine) 1 Each Tablet 6 Mg PO QHS Loperamide (Loperamide Hcl) 2 Mg Tablet 2 Mg PO PRN Q4HRS PRN MDD 16mg Keppra (Levetiracetam) 500 Mg Tablet 500 Mg PO BID Ferrous Sulfate 325 Mg Tablet 325 Mg PO DAILY Neurontin (Gabapentin) 300 Mg Capsule 300 Mg PO BID Voltaren (Diclofenac Sodium) 100 Gm Gel..gram. 4 Sam TP PRN QID PRN Budesonide 0.5 Mg/2 Ml Ampul.neb 0.5 Mg NEB RTBID Dicyclomine Hcl 10 Mg Capsule 10 Mg PO PRN Q8HRS PRN Artificial Tears Eye Drops (Dextran 70/Hypromellose) 15 Ml Drops 1 Drop OU TID PRN Anusol-Hc (Hydrocortisone Acetate) 25 Mg Supp.rect 25 Mg RC PRN Q12HR PRN Norvasc (Amlodipine Besylate) 10 Mg Tablet 10 Mg PO DAILY Tylenol (Acetaminophen) 325 Mg Tablet 650 Mg PO PRN Q6HRS PRN Max acetaminophen dose os 4000mg/24hrs from all sources Albuterol Sulfate Neb Soln (Albuterol Sulfate) 2.5 Mg/3 Ml Vial.neb 2.5 Mg NEB PRN Q4HRS PRN Milk Of Magnesia (Magnesium Hydroxide) 400 Mg/5 Ml Oral.susp 2,400 Mg PO PRN QHS PRN Actos (Pioglitazone Hcl) 15 Mg Tablet 15 Mg PO DAILY I have reviewed the current psychotropics carefully including drug interactions. Risk benefit ratio favors no change other than as noted in my dictated progress note. Diagnosis: Problems: (1) Anxiety disorder (2) Impulse control disorder (3) Major depressive disorder, recurrent episode (4) Mild cognitive impairment BEA SAWANT MD Sep 27, 2018 19:53
[2018-09-27] MEDS: MELATONIN 3 MG TABLET PO SCH (20:44)
[2018-09-27] MEDS: MIRTAZAPINE 7.5 MG TABLET. PO SCH (20:44)
[2018-09-27] MEDS: INSULIN GLARGINE 300 UNITS/3 ML INSULN.PEN. SQ SCH (20:46)
--- NOTE | 2018-09-27 23:06 | PN ---
DATE: 09/26/2018 PSYCHIATRIC PROGRESS NOTE This late entry 09/26/2018 covers elements not covered in my initial note. SUBJECTIVE: I met with the patient in the evening and also discussed with Dr. Lara who covered for me over the past 1 week or so. The patient slept 6-1/2 hours previous night. She often puts herself on the floor. UTI, urine C and S is awaited. She has been calmer, does have a cough. REVIEW OF SYSTEMS: Ambulation impaired, in wheelchair. No CV, , pulmonary, eye, ENT system symptoms on review other than cough. MENTAL STATUS EXAM: Reasonably oriented. Speech coherent, less pressured. Abstraction fair, computation impaired, language function intact, attention span short. Mood and affect, lability is improved. LABORATORY DATA: Reviewed. IMPRESSION: Bipolar 1 disorder, mixed with psychotic features; anxiety disorder, unspecified; impulse control disorder, unspecified. Rest unchanged. PLAN: Continue psychotropics from initial note. Cymbalta, Remeron, Trileptal, melatonin for now. MAN Farrah SAWANT MD DR: MARK/daphne JOB#: [id number] / [id number]
--- NOTE | 2018-09-27 23:07 | NUR ---
Nursing Note The patient was in her room when this nurse approached her for her interview and medication pass. The patient was compliant with her medications and took them whole. The patient was somewhat withdrawn during interactions with this nurse and other staff. The patient is currently located in her room sleeping.
[2018-09-28 05:58] VITALS: BP 152/72
[2018-09-28] MEDS: DULoxetine HCL 60 MG CAPSULE.DR PO SCH (07:53)
[2018-09-28] MEDS: levETIRAcetam 500 MG TABLET PO SCH ×2 (07:53→20:44)
[2018-09-28] MEDS: FAMOTIDINE 20 MG TABLET PO SCH (07:53)
[2018-09-28] MEDS: ASCORBIC ACID 500 MG TABLET PO SCH (07:53)
[2018-09-28] MEDS: PIOGLITAZONE 15 MG TABLET. PO SCH (07:55)
[2018-09-28] MEDS: FERROUS SULFATE 325 MG TABLET. PO SCH (07:55)
[2018-09-28] MEDS: INSULIN LISPRO 300 UNITS/3 ML INSULN.PEN. SQ SCH ×3 (07:55→17:44)
[2018-09-28] MEDS: amLODIPine BESYLATE 10 MG TABLET PO SCH (07:55)
[2018-09-28] MEDS: OXcarbazepine 150 MG TABLET. PO SCH (07:58)
[2018-09-28] MEDS: GABAPENTIN 300 MG CAPSULE. PO SCH ×2 (07:59→20:48)
[2018-09-28] MEDS: oxyCODONE/APAP 10/325 1 TAB TABLET PO SCH ×2 (07:59→20:48)
[2018-09-28] MEDS: BUDESONIDE 0.5 MG/2 ML NEBU NEB SCH ×2 (11:01→20:30)
--- NOTE | 2018-09-28 12:03 | NUR ---
GURPREET spoke to ALICE Hickey from [facility] regarding pt. discharge. GURPREET will call back tomorrow, after treatment team with a tentative discharge date.
[2018-09-28] MEDS ORDERED: DEXTROSE 50% 25 GM / 50ML DISP.SYRIN. IV PRN (14:45)
[2018-09-28 16:08] VITALS: BP 136/62
--- NOTE | 2018-09-28 16:53 | NUR ---
Behavior Intervention Response and Plan: BIRP Note: Behavior: Assumed Care of patient, patient located in Day Room at shift change. Patient exhibited the following behavior Drowsy, Disorganized, Cooperative. Brief assessment on rounds of vital signs, medication needs, lab studies, and pain. Treatment plan problems alteration in mood and fall risk. Intervention: Patient assessed and the following interventions initiated safety checks 15 Minute Checks Head to toe Assessment , Cognitive Assessment , Medications. Response: After interactions and interventions patient responded in the following manner, Calm , Compliant , Drowsy. Continue to assess behaviors and condition will continue to monitor throughout the shift as needed. Patient educated on ADL's, and hand hygiene. Plan: Continue to monitor Master Treatment Plan for patient's progress toward short term goals of Decreased Anxiety, Decreased Aggression, terminal manager goals to return to previous living setting vs placement. Continue to assess patient for changes in above assessment. Monitor for medication needs, pain, and safety concerns. Hourly rounding performed to ensure safe environment.
--- NOTE | 2018-09-28 20:07 | PDOC ---
Exam Note: Neal Note: Please also refer to the separate dictated note~for this date of service dictated separately.~Patient seen individually. Discussed the patient with Nursing staff reviewed the chart.~Reviewed interim history and current functioning. Reviewed vital signs,~Labs/ Radiology~and current medications noted below. Continue current treatment with the changes noted in the dictated addendum note Assessment: Vital Signs: Vital Signs Date Time Temp Pulse Resp B/P (MAP) Pulse Ox O2 Delivery O2 Flow Rate FiO2 09/28/18 16:08 97.4 78 18 136/62 (86) 99 09/28/18 11:01 Room Air I&O Intake and Output 09/28/18 07:00 Intake Total 960 ml Balance 960 ml Intake Oral 960 ml Labs: Laboratory Tests Test 09/28/18 07:17 09/28/18 11:38 09/28/18 17:13 09/28/18 19:11 Glucose (Fingerstick) 54 mg/dL (70-99) L 192 mg/dL (70-99) H 195 mg/dL (70-99) H 173 mg/dL (70-99) H Current Medications: Meds: Current Medications Acetaminophen (Tylenol) 650 mg PRN Q6HRS PRN PO PAIN / TEMP Last administered on 09/26/18at 12:57; Start 09/15/18 at 21:30 Albuterol Sulfate (Ventolin) 2.5 mg PRN Q4HRS PRN NEB Dyspnea; Start 09/15/18 at 21:30 Diclofenac Sodium (Voltaren) 4 sam PRN QID PRN TP R Knee Pain; Start 09/15/18 at 21:30 Dicyclomine HCl (Bentyl) 10 mg PRN Q8HRS PRN PO Bowel Cramps; Start 09/15/18 at 21:30 Ferrous Sulfate (Feosol) 325 mg DAILY PO Last administered on 09/28/18at 07:55 ; Start 09/16/18 at 09:00 Gabapentin (Neurontin) 300 mg BID PO Last administered on 09/28/18at 07:59; Start 09/16/18 at 09:00 Hydrocortisone (Proctosol-Hc) 1 sam PRN Q24HRS PRN RC hemorrhoids; Start at 21:30 Al Hydroxide/Mg Hydroxide (Mylanta Plus Xs) 15 ml PRN AFTMEALHC PRN PO DYSPEPSIA; Start 09/15/18 at 21:30 Magnesium Hydroxide (Milk Of Magnesia) 2,400 mg PRN QHS PRN PO CONSTIPATION; Start 09/15/18 at 21:30 Multi-Ingredient Ointment (Analgesic [place]) 1 sam PRN QID PRN TP MUSCLE PAIN; Start 09/15/18 at 21:30 Nitroglycerin (Nitrostat) 0.4 mg PRN Q5MIN PRN SL CHEST PAIN; Start 09/15/18 at 21:30 Nystatin (Nystop) 1 sam PRN TID PRN TP REDNESS; Start 09/15/18 at 21:30 Oxycodone/ Acetaminophen (Percocet 10/325) 1 tab BID PO Last administered on at 07:59; Start 09/16/18 at 09:00 Oxycodone/ Acetaminophen (Percocet 10/325) 1 tab PRN Q4HRS PRN PO PAIN Last administered on 09/26/18at 18:17; Start 09/15/18 at 21:30 Amlodipine Besylate (Norvasc) 10 mg DAILY PO Last administered on 09/28/18at 07 :55; Start 09/16/18 at 09:00 Ascorbic Acid (Vitamin C) 500 mg DAILY PO Last administered on 09/28/18at 07:53 ; Start 09/16/18 at 09:00 Non-Formulary Medication (Budesonide ) 0.5 mg RTBID NEB ; Start 09/16/18 at 08: 00; Stop 09/16/18 at 08:00; Status DC Artificial Tears (Artificial Tears) 1 drop PRN TID PRN OU DRY EYE; Start at 21:45 Duloxetine HCl (Cymbalta) 60 mg DAILY PO Last administered on 09/28/18at 07:53 ; Start 09/16/18 at 09:00 Famotidine (Pepcid) 20 mg DAILY PO Last administered on 09/28/18at 07:53; Start 09/15/18 at 09:00 Guaifenesin (Robitussin Dm) 10 ml PRN Q4HRS PRN PO COUGH; Start 09/15/18 at 21: 45 Non-Formulary Medication (Insulin Aspart (Novolog Flexpen)) 200-250 2units 251- ... TIDWMEALHC SQ ; Start 09/16/18 at 08:00; Status UNV Levetiracetam (Keppra) 500 mg BID PO Last administered on 09/28/18at 07:53; Start 09/16/18 at 09:00 Loperamide HCl (Imodium) 2 mg PRN Q4HRS PRN PO DIARRHEA; Start 09/15/18 at 21: 45 Melatonin 6 mg QHS PO Last administered on 09/27/18at 20:44; Start 09/16/18 at 21:00 Mirtazapine (Remeron) 7.5 mg QHS PO Last administered on 09/27/18at 20:44; Start 09/16/18 at 21:00 Ondansetron HCl (Zofran Odt) 4 mg PRN Q4HRS PRN PO NAUSEA/VOMITING; Start 09/15 at 21:45 Oxcarbazepine (Trileptal) 150 mg BID@0900,1300 PO Last administered on at 12:48; Start 09/16/18 at 09:00; Stop 09/27/18 at 16:40; Status DC Pioglitazone HCl (Actos) 15 mg DAILY PO Last administered on 09/28/18at 07:55; Start 09/16/18 at 09:00 Budesonide (Pulmicort) 0.5 mg RTBID NEB Last administered on 09/28/18at 11:01; Start 09/16/18 at 08:00 Insulin Human Lispro (HumaLOG) 0-5 UNITS TIDWMEALS SQ Last administered on at 12:18; Start 09/16/18 at 08:00; Stop 09/28/18 at 14:39; Status DC Insulin Glargine (Lantus) 10 units QHS SQ Last administered on 09/17/18at 19:49 ; Start 09/16/18 at 21:00; Stop 09/18/18 at 15:41; Status DC Vitamin D (Vitamin D3) 50,000 unit WEEKLY PO Last administered on 09/23/18at 08 :55; Start 09/16/18 at 16:15 Insulin Glargine (Lantus) 20 units QHS SQ Last administered on 09/27/18at 20:46 ; Start 09/18/18 at 21:00; Stop 09/28/18 at 14:37; Status DC Oxcarbazepine (Trileptal) 150 mg DAILY PO Last administered on 09/28/18at 07:58 ; Start 09/28/18 at 09:00 Oxcarbazepine (Trileptal) 300 mg 1300 PO Last administered on 09/28/18at 14:35 ; Start 09/28/18 at 13:00 Insulin Glargine (Lantus) 15 units QHS SQ ; Start 09/28/18 at 21:00 Insulin Human Lispro (HumaLOG) 0-9 UNITS TIDWMEALS SQ Last administered on at 17:44; Start 09/28/18 at 17:00 Dextrose 12.5 gm PRN Q15MIN PRN IV SEE COMMENTS; Start 09/28/18 at 14:45 Active Scripts Active Reported Trileptal (Oxcarbazepine) 150 Mg Tablet 150 Mg PO BID@0900,1300 Zyprexa (Olanzapine) 5 Mg Tablet 5 Mg PO PRN Q2HR PRN dissolve in mouth. Max 20mg/24hrs Mirtazapine 15 Mg Tablet 7.5 Mg PO QHS Proctosol-Hc (Hydrocortisone) 28.35 Gm Cream..g. 1 Sam RC PRN Q24HRS PRN Vitamin C (Ascorbic Acid) 500 Mg Capsule 500 Mg PO DAILY Novolog Flexpen (Insulin Aspart) 100 Unit/1 Ml Insuln.pen 2-10 Units SQ TIDWMEALHC BS 200-250 2 units BS 251-300 4 units BS 301-350 8 units BS 351-400 10 units BS >400 CALL Cymbalta (Duloxetine Hcl) 60 Mg Capsule.dr 60 Mg PO DAILY Famotidine 20 Mg Tablet 20 Mg PO DAILY Mag-Al Plus Xs Suspension (Mag Hydrox/Al Hydrox/Simeth) 30 Ml Oral.susp 15 Ml PO PRN AFTMEALHC PRN Robitussin Cough-Chest Dm Liq (Guaifenesin/Dextromethorphan) 237 Ml Liquid 10 Ml PO PRN Q4HRS PRN Percocet 10-325 Mg Tablet (Oxycodone Hcl/Acetaminophen) 1 Each Tablet 1 Tab PO PRN Q4HRS PRN Percocet 10-325 Mg Tablet (Oxycodone Hcl/Acetaminophen) 1 Each Tablet 1 Tab PO BID Ondansetron Hcl 4 Mg Tablet 4 Mg PO PRN Q4HRS PRN Nystatin 15 Gm Powder 1 Sam TP PRN TID PRN Nitrostat (Nitroglycerin) 0.4 Mg Tab.subl 0.4 Mg SL PRN Q5MIN PRN HOld for SBP less than or equal to 90mmHG. Call Provider for shest pain unrelieved by 1 sublingual nitro, may repeat x2 if chest pain persists. Melatonin 5 Mg Tablet (Melatonin/Pyridoxine) 1 Each Tablet 6 Mg PO QHS Loperamide (Loperamide Hcl) 2 Mg Tablet 2 Mg PO PRN Q4HRS PRN MDD 16mg Keppra (Levetiracetam) 500 Mg Tablet 500 Mg PO BID Ferrous Sulfate 325 Mg Tablet 325 Mg PO DAILY Neurontin (Gabapentin) 300 Mg Capsule 300 Mg PO BID Voltaren (Diclofenac Sodium) 100 Gm Gel..gram. 4 Sam TP PRN QID PRN Budesonide 0.5 Mg/2 Ml Ampul.neb 0.5 Mg NEB RTBID Dicyclomine Hcl 10 Mg Capsule 10 Mg PO PRN Q8HRS PRN Artificial Tears Eye Drops (Dextran 70/Hypromellose) 15 Ml Drops 1 Drop OU TID PRN Anusol-Hc (Hydrocortisone Acetate) 25 Mg Supp.rect 25 Mg RC PRN Q12HR PRN Norvasc (Amlodipine Besylate) 10 Mg Tablet 10 Mg PO DAILY Tylenol (Acetaminophen) 325 Mg Tablet 650 Mg PO PRN Q6HRS PRN Max acetaminophen dose os 4000mg/24hrs from all sources Albuterol Sulfate Neb Soln (Albuterol Sulfate) 2.5 Mg/3 Ml Vial.neb 2.5 Mg NEB PRN Q4HRS PRN Milk Of Magnesia (Magnesium Hydroxide) 400 Mg/5 Ml Oral.susp 2,400 Mg PO PRN QHS PRN Actos (Pioglitazone Hcl) 15 Mg Tablet 15 Mg PO DAILY I have reviewed the current psychotropics carefully including drug interactions. Risk benefit ratio favors no change other than as noted in my dictated progress note. Diagnosis: Problems: (1) Anxiety disorder (2) Impulse control disorder (3) Major depressive disorder, recurrent episode (4) Mild cognitive impairment BEA SAWANT MD Sep 28, 2018 20:07
[2018-09-28] MEDS: MELATONIN 3 MG TABLET PO SCH (20:44)
[2018-09-28] MEDS: MIRTAZAPINE 7.5 MG TABLET. PO SCH (20:44)
[2018-09-28] MEDS: INSULIN GLARGINE 300 UNITS/3 ML INSULN.PEN. SQ SCH (20:45)
--- NOTE | 2018-09-28 21:36 | PN ---
DATE: 09/27/2018 PSYCHIATRIC PROGRESS NOTE This late entry 09/27/2018 covers elements not covered in my initial note. SUBJECTIVE: I met with the patient in the evening. The patient slept 7-1/2 hours previous night. UA, preliminary shows E. coli. We will await the culture. She does have a cough. Chest x-ray is negative. Ambulation impaired, in wheelchair, complains of being tired, put herself on the floor few times in the past 1 week per nursing report. REVIEW OF SYSTEMS: No CV, , pulmonary, eye system symptoms on review other than above. MENTAL STATUS EXAM: Oriented to herself and situation. Speech has some latency, coherent, at times, often responses monosyllabic. Abstraction fair, computation impaired, language function intact, attention span short. Mood and affect somewhat labile at times, but improved. LABORATORY DATA: Reviewed. IMPRESSION: Schizoaffective disorder, bipolar type, mixed with psychotic features; cognitive disorder, unspecified. PLAN: Treat the UTI once C and S returns. Rest unchanged from initial note. MAN Farrah SAWANT MD DR: MARK/daphne JOB#: [id number] / [id number]
--- NOTE | 2018-09-29 00:17 | NUR ---
Nursing Note The patient was located in her room for her shift assessment and medication pass. The patient was compliant with her medications and took them whole. The patient was withdrawn and did not interact with this nurse during her interview. The patient is currently sleeping in her room.
[2018-09-29 05:42] VITALS: BP 118/74
[2018-09-29] MEDS: INSULIN LISPRO 300 UNITS/3 ML INSULN.PEN. SQ SCH ×3 (08:00→17:38)
[2018-09-29] MEDS: amLODIPine BESYLATE 10 MG TABLET PO SCH (08:27)
[2018-09-29] MEDS: FERROUS SULFATE 325 MG TABLET. PO SCH (08:27)
[2018-09-29] MEDS: DULoxetine HCL 60 MG CAPSULE.DR PO SCH (08:27)
[2018-09-29] MEDS: FAMOTIDINE 20 MG TABLET PO SCH (08:28)
[2018-09-29] MEDS: levETIRAcetam 500 MG TABLET PO SCH ×2 (08:28→21:08)
[2018-09-29] MEDS: ASCORBIC ACID 500 MG TABLET PO SCH (08:28)
[2018-09-29] MEDS: OXcarbazepine 150 MG TABLET. PO SCH (08:28)
[2018-09-29] MEDS: PIOGLITAZONE 15 MG TABLET. PO SCH (08:30)
[2018-09-29] MEDS: GABAPENTIN 300 MG CAPSULE. PO SCH ×2 (08:30→21:08)
[2018-09-29] MEDS: oxyCODONE/APAP 10/325 1 TAB TABLET PO SCH ×2 (08:30→21:14)
--- NOTE | 2018-09-29 08:44 | NUR ---
WEEKLY ACTIVITY THERAPY NOTE Date of Admission: 09/15/2018 Date of AT Assessment: 09/18/2018 Goal aimed: To increase stress management and volunteer work. Initial Goal: Pt. will participate in five activity groups per week. Weekly progress towards goal: did not achieve Group participation level: varies Behaviors observed: Pt. has been more engaged this week; Pt. speech has been clearer but she seems to be confused, asking if the other patients are her brothers and sisters and needing frequent reminders; Pt. seems to enjoy music and some trivia games Plan: no change to goal
[2018-09-29] MEDS: BUDESONIDE 0.5 MG/2 ML NEBU NEB SCH ×2 (11:03→20:25)
--- NOTE | 2018-09-29 11:20 | NUR ---
GURPREET spoke to Florence, social welfare clerk at [facility] regarding discharge of pt. schedule for 10/05/2018. GURPREET shared pt. daughter would like pt. discharged to a place in [place] or perhaps [place]. Florence will fax paperwork on Wednesday10/03/2018 to facilities in these areas for possible placement.
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
--- NOTE | 2018-09-29 11:57 | NUR ---
WEEKLY NOTE Pt. daughter was called for treatment team. Pt. has been eating and sleeping well. It was reported pt. has not been yelling or screaming. She is calm, confused, cooperative, medication compliant, and drowsy. She does not appear to be having hallucinations at this time, however, does have moments of confusion. Pt. labs look good although she is a little dehydrated. She enjoys music and trivia and has been attending more recreational therapy groups this week. Discharge is tentatively scheduled for the middle part of next week. Pt. daughter would like pt. discharged to a facility in [place] due to the amount of problems the pt. has been having at [facility].
--- NOTE | 2018-09-29 13:22 | NUR ---
Behavior Intervention Response and Plan: BIRP Note: Behavior: Assumed Care of patient, patient located in Day Room at shift change. Patient exhibited the following behavior Drowsy, Disorganized, Cooperative. Brief assessment on rounds of vital signs, medication needs, lab studies, and pain. Treatment plan problems alteration in mood and fall risk. Intervention: Patient assessed and the following interventions initiated safety checks 15 Minute Checks Head to toe Assessment , Cognitive Assessment , Medications. Response: After interactions and interventions patient responded in the following manner, Calm , Compliant , Drowsy. Continue to assess behaviors and condition will continue to monitor throughout the shift as needed. Patient educated on ADL's, and hand hygiene. 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 Continue to assess patient for changes in above assessment. Monitor for medication needs, pain, and safety concerns. Hourly rounding performed to ensure safe environment.
[2018-09-29 15:46] VITALS: BP 136/87
[2018-09-29 19:44] VITALS: BP 142/75
[2018-09-29 19:48] LABS: BGAS PH 7.39 (7.35-7.45)
[2018-09-29 20:20] LABS: BASO # 0.1 x10^3/uL (0.0-0.2); BASO % 1 % (0-3); EOS # 0.1 x10^3/uL (0.0-0.7); EOS % 2 % (0-3); HEMATOCRIT 30.7 % (36.0-47.0); HEMOGLOBIN 10.1 g/dL (12.0-15.5); LYMPH # 2.2 x10^3/uL (1.0-4.8); LYMPH % 23 % (24-48); MEAN CORPUSCULAR HEMOGLOBIN 28 pg (25-35); MEAN CORPUSCULAR HGB CONC 33 g/dL (31-37); MEAN CORPUSCULAR VOLUME 84 fL (79-100); MONO # 0.6 x10^3/uL (0.0-1.1); MONO % 6 % (0-9); NEUT # 6.5 x10^3uL (1.8-7.7); NEUT % 69 % (31-73); PLATELET COUNT 297 x10^3/uL (140-400); RED BLOOD COUNT 3.66 x10^6/uL (3.50-5.40); RED CELL DISTRIBUTION WIDTH 15.3 % (11.5-14.5); WHITE BLOOD COUNT 9.4 x10^3/uL (4.0-11.0)
[2018-09-29 20:44] LABS: ALBUMIN 2.7 g/dL (3.4-5.0); ALBUMIN/GLOBULIN RATIO 0.6 (1.0-1.7); CALCIUM 9.3 mg/dL (8.5-10.1); CREATININE 1.2 mg/dL (0.6-1.0); GFR 53.4; POTASSIUM 4.5 mmol/L (3.5-5.1); TOTAL BILIRUBIN 0.2 mg/dL (0.2-1.0); TOTAL PROTEIN 7.5 g/dL (6.4-8.2)
[2018-09-29] MEDS: MELATONIN 3 MG TABLET PO SCH (21:08)
[2018-09-29] MEDS: MIRTAZAPINE 7.5 MG TABLET. PO SCH (21:08)
[2018-09-29] MEDS: INSULIN GLARGINE 300 UNITS/3 ML INSULN.PEN. SQ SCH (21:10)
[2018-09-29] MEDS: LACTOBACILLUS RHAMNOSUS GG 1 CAPSULE. PO SCH (21:14)
[2018-09-29] MEDS: AMOXICILLIN 250 MG CAPSULE PO SCH (21:14)
--- NOTE | 2018-09-29 23:12 | PDOC ---
Exam Note: Neal Note: Please also refer to the separate dictated note~for this date of service dictated separately.~Patient seen individually. Discussed the patient with Nursing staff reviewed the chart.~Reviewed interim history and current functioning. Reviewed vital signs,~Labs/ Radiology~and current medications noted below. Continue current treatment with the changes noted in the dictated addendum note Assessment: Vital Signs: Vital Signs Date Time Temp Pulse Resp B/P (MAP) Pulse Ox O2 Delivery O2 Flow Rate FiO2 09/29/18 20:02 96 Room Air 09/29/18 19:44 97.3 78 20 142/75 (97) I&O Intake and Output 09/29/18 07:01 Intake Total 720 ml Balance 720 ml Intake Oral 720 ml # Voids 1 Labs: Laboratory Tests Test 09/29/18 08:34 09/29/18 11:33 09/29/18 16:39 09/29/18 19:25 Glucose (Fingerstick) 132 mg/dL (70-99) H 132 mg/dL (70-99) H 232 mg/dL (70-99) H Blood pH 7.39 (7.35-7.45) Blood Gas PCO2 43 mmHg (35-45) Blood Gas PO2 82 mmHg (71-100) Blood Gas HCO3 26 mmol/L (22-26) Arterial Bld O2 Saturation (Calc) 96 % (92-99) FiO2 21 % Test 09/29/18 19:53 09/29/18 20:10 Glucose (Fingerstick) 275 mg/dL (70-99) H White Blood Count 9.4 x10^3/uL (4.0-11.0) Red Blood Count 3.66 x10^6/uL (3.50-5.40) Hemoglobin 10.1 g/dL (12.0-15.5) L Hematocrit 30.7 % (36.0-47.0) L Mean Corpuscular Volume 84 fL (79-100) Mean Corpuscular Hemoglobin 28 pg (25-35) Mean Corpuscular Hemoglobin Concent 33 g/dL (31-37) Red Cell Distribution Width 15.3 % (11.5-14.5) H Platelet Count 297 x10^3/uL (140-400) Neutrophils (%) (Auto) 69 % (31-73) Lymphocytes (%) (Auto) 23 % (24-48) L Monocytes (%) (Auto) 6 % (0-9) Eosinophils (%) (Auto) 2 % (0-3) Basophils (%) (Auto) 1 % (0-3) Neutrophils # (Auto) 6.5 x10^3uL (1.8-7.7) Lymphocytes # (Auto) 2.2 x10^3/uL (1.0-4.8) Monocytes # (Auto) 0.6 x10^3/uL (0.0-1.1) Eosinophils # (Auto) 0.1 x10^3/uL (0.0-0.7) Basophils # (Auto) 0.1 x10^3/uL (0.0-0.2) Sodium Level 139 mmol/L (136-145) Potassium Level 4.5 mmol/L (3.5-5.1) Chloride Level 103 mmol/L (98-107) Carbon Dioxide Level 29 mmol/L (21-32) Anion Gap 7 (6-14) Blood Urea Nitrogen 27 mg/dL (7-20) H Creatinine 1.2 mg/dL (0.6-1.0) H Estimated GFR (Cockcroft-Gault) 53.4 BUN/Creatinine Ratio 23 (6-20) H Glucose Level 273 mg/dL (70-99) H Lactic Acid Level 0.5 mmol/L (0.4-2.0) Calcium Level 9.3 mg/dL (8.5-10.1) Total Bilirubin 0.2 mg/dL (0.2-1.0) Aspartate Amino Transferase (AST) 16 U/L (15-37) Alanine Aminotransferase (ALT) 29 U/L (14-59) Alkaline Phosphatase 112 U/L (46-116) Total Protein 7.5 g/dL (6.4-8.2) Albumin 2.7 g/dL (3.4-5.0) L Albumin/Globulin Ratio 0.6 (1.0-1.7) L Current Medications: Meds: Current Medications Acetaminophen (Tylenol) 650 mg PRN Q6HRS PRN PO PAIN / TEMP Last administered on 09/26/18at 12:57; Start 09/15/18 at 21:30 Albuterol Sulfate (Ventolin) 2.5 mg PRN Q4HRS PRN NEB Dyspnea; Start 09/15/18 at 21:30 Diclofenac Sodium (Voltaren) 4 sam PRN QID PRN TP R Knee Pain; Start 09/15/18 at 21:30 Dicyclomine HCl (Bentyl) 10 mg PRN Q8HRS PRN PO Bowel Cramps; Start 09/15/18 at 21:30 Ferrous Sulfate (Feosol) 325 mg DAILY PO Last administered on 09/29/18at 08:27 ; Start 09/16/18 at 09:00 Gabapentin (Neurontin) 300 mg BID PO Last administered on 09/29/18at 21:08; Start 09/16/18 at 09:00 Hydrocortisone (Proctosol-Hc) 1 sam PRN Q24HRS PRN RC hemorrhoids; Start at 21:30 Al Hydroxide/Mg Hydroxide (Mylanta Plus Xs) 15 ml PRN AFTMEALHC PRN PO DYSPEPSIA; Start 09/15/18 at 21:30 Magnesium Hydroxide (Milk Of Magnesia) 2,400 mg PRN QHS PRN PO CONSTIPATION; Start 09/15/18 at 21:30 Multi-Ingredient Ointment (Analgesic [place]) 1 sam PRN QID PRN TP MUSCLE PAIN; Start 09/15/18 at 21:30 Nitroglycerin (Nitrostat) 0.4 mg PRN Q5MIN PRN SL CHEST PAIN; Start 09/15/18 at 21:30 Nystatin (Nystop) 1 sam PRN TID PRN TP REDNESS; Start 09/15/18 at 21:30 Oxycodone/ Acetaminophen (Percocet 10/325) 1 tab BID PO Last administered on at 21:14; Start 09/16/18 at 09:00 Oxycodone/ Acetaminophen (Percocet 10/325) 1 tab PRN Q4HRS PRN PO PAIN Last administered on 09/26/18at 18:17; Start 09/15/18 at 21:30 Amlodipine Besylate (Norvasc) 10 mg DAILY PO Last administered on 09/29/18at 08 :27; Start 09/16/18 at 09:00 Ascorbic Acid (Vitamin C) 500 mg DAILY PO Last administered on 09/29/18at 08:28 ; Start 09/16/18 at 09:00 Non-Formulary Medication (Budesonide ) 0.5 mg RTBID NEB ; Start 09/16/18 at 08: 00; Stop 09/16/18 at 08:00; Status DC Artificial Tears (Artificial Tears) 1 drop PRN TID PRN OU DRY EYE; Start at 21:45 Duloxetine HCl (Cymbalta) 60 mg DAILY PO Last administered on 09/29/18at 08:27 ; Start 09/16/18 at 09:00 Famotidine (Pepcid) 20 mg DAILY PO Last administered on 09/29/18at 08:28; Start 09/15/18 at 09:00 Guaifenesin (Robitussin Dm) 10 ml PRN Q4HRS PRN PO COUGH; Start 09/15/18 at 21: 45 Non-Formulary Medication (Insulin Aspart (Novolog Flexpen)) 200-250 2units 251- ... TIDWMEALHC SQ ; Start 09/16/18 at 08:00; Status UNV Levetiracetam (Keppra) 500 mg BID PO Last administered on 09/29/18at 21:08; Start 09/16/18 at 09:00 Loperamide HCl (Imodium) 2 mg PRN Q4HRS PRN PO DIARRHEA; Start 09/15/18 at 21: 45 Melatonin 6 mg QHS PO Last administered on 09/29/18at 21:08; Start 09/16/18 at 21:00 Mirtazapine (Remeron) 7.5 mg QHS PO Last administered on 09/29/18at 21:08; Start 09/16/18 at 21:00 Ondansetron HCl (Zofran Odt) 4 mg PRN Q4HRS PRN PO NAUSEA/VOMITING; Start 09/15 at 21:45 Oxcarbazepine (Trileptal) 150 mg BID@0900,1300 PO Last administered on at 12:48; Start 09/16/18 at 09:00; Stop 09/27/18 at 16:40; Status DC Pioglitazone HCl (Actos) 15 mg DAILY PO Last administered on 09/29/18at 08:30; Start 09/16/18 at 09:00 Budesonide (Pulmicort) 0.5 mg RTBID NEB Last administered on 09/29/18at 20:25; Start 09/16/18 at 08:00 Insulin Human Lispro (HumaLOG) 0-5 UNITS TIDWMEALS SQ Last administered on at 12:18; Start 09/16/18 at 08:00; Stop 09/28/18 at 14:39; Status DC Insulin Glargine (Lantus) 10 units QHS SQ Last administered on 09/17/18at 19:49 ; Start 09/16/18 at 21:00; Stop 09/18/18 at 15:41; Status DC Vitamin D (Vitamin D3) 50,000 unit WEEKLY PO Last administered on 09/23/18at 08 :55; Start 09/16/18 at 16:15 Insulin Glargine (Lantus) 20 units QHS SQ Last administered on 09/27/18at 20:46 ; Start 09/18/18 at 21:00; Stop 09/28/18 at 14:37; Status DC Oxcarbazepine (Trileptal) 150 mg DAILY PO Last administered on 09/29/18at 08:28 ; Start 09/28/18 at 09:00 Oxcarbazepine (Trileptal) 300 mg 1300 PO Last administered on 09/29/18at 12:46 ; Start 09/28/18 at 13:00 Insulin Glargine (Lantus) 15 units QHS SQ Last administered on 09/29/18at 21:10 ; Start 09/28/18 at 21:00 Insulin Human Lispro (HumaLOG) 0-9 UNITS TIDWMEALS SQ Last administered on at 17:38; Start 09/28/18 at 17:00 Dextrose 12.5 gm PRN Q15MIN PRN IV SEE COMMENTS; Start 09/28/18 at 14:45 Amoxicillin (Amoxil) 250 mg QFF895 PO Last administered on 09/29/18at 21:14; Start 09/29/18 at 21:00 Lactobacillus Rhamnosus (Culturelle) 1 cap BID PO Last administered on at 21:14; Start 09/29/18 at 21:00 Active Scripts Active Reported Trileptal (Oxcarbazepine) 150 Mg Tablet 150 Mg PO BID@0900,1300 Zyprexa (Olanzapine) 5 Mg Tablet 5 Mg PO PRN Q2HR PRN dissolve in mouth. Max 20mg/24hrs Mirtazapine 15 Mg Tablet 7.5 Mg PO QHS Proctosol-Hc (Hydrocortisone) 28.35 Gm Cream..g. 1 Sam RC PRN Q24HRS PRN Vitamin C (Ascorbic Acid) 500 Mg Capsule 500 Mg PO DAILY Novolog Flexpen (Insulin Aspart) 100 Unit/1 Ml Insuln.pen 2-10 Units SQ TIDWMEALHC BS 200-250 2 units BS 251-300 4 units BS 301-350 8 units BS 351-400 10 units BS >400 CALL Cymbalta (Duloxetine Hcl) 60 Mg Capsule.dr 60 Mg PO DAILY Famotidine 20 Mg Tablet 20 Mg PO DAILY Mag-Al Plus Xs Suspension (Mag Hydrox/Al Hydrox/Simeth) 30 Ml Oral.susp 15 Ml PO PRN AFTMEALHC PRN Robitussin Cough-Chest Dm Liq (Guaifenesin/Dextromethorphan) 237 Ml Liquid 10 Ml PO PRN Q4HRS PRN Percocet 10-325 Mg Tablet (Oxycodone Hcl/Acetaminophen) 1 Each Tablet 1 Tab PO PRN Q4HRS PRN Percocet 10-325 Mg Tablet (Oxycodone Hcl/Acetaminophen) 1 Each Tablet 1 Tab PO BID Ondansetron Hcl 4 Mg Tablet 4 Mg PO PRN Q4HRS PRN Nystatin 15 Gm Powder 1 Sma TP PRN TID PRN Nitrostat (Nitroglycerin) 0.4 Mg Tab.subl 0.4 Mg SL PRN Q5MIN PRN HOld for SBP less than or equal to 90mmHG. Call Provider for shest pain unrelieved by 1 sublingual nitro, may repeat x2 if chest pain persists. Melatonin 5 Mg Tablet (Melatonin/Pyridoxine) 1 Each Tablet 6 Mg PO QHS Loperamide (Loperamide Hcl) 2 Mg Tablet 2 Mg PO PRN Q4HRS PRN MDD 16mg Keppra (Levetiracetam) 500 Mg Tablet 500 Mg PO BID Ferrous Sulfate 325 Mg Tablet 325 Mg PO DAILY Neurontin (Gabapentin) 300 Mg Capsule 300 Mg PO BID Voltaren (Diclofenac Sodium) 100 Gm Gel..gram. 4 Sam TP PRN QID PRN Budesonide 0.5 Mg/2 Ml Ampul.neb 0.5 Mg NEB RTBID Dicyclomine Hcl 10 Mg Capsule 10 Mg PO PRN Q8HRS PRN Artificial Tears Eye Drops (Dextran 70/Hypromellose) 15 Ml Drops 1 Drop OU TID PRN Anusol-Hc (Hydrocortisone Acetate) 25 Mg Supp.rect 25 Mg RC PRN Q12HR PRN Norvasc (Amlodipine Besylate) 10 Mg Tablet 10 Mg PO DAILY Tylenol (Acetaminophen) 325 Mg Tablet 650 Mg PO PRN Q6HRS PRN Max acetaminophen dose os 4000mg/24hrs from all sources Albuterol Sulfate Neb Soln (Albuterol Sulfate) 2.5 Mg/3 Ml Vial.neb 2.5 Mg NEB PRN Q4HRS PRN Milk Of Magnesia (Magnesium Hydroxide) 400 Mg/5 Ml Oral.susp 2,400 Mg PO PRN QHS PRN Actos (Pioglitazone Hcl) 15 Mg Tablet 15 Mg PO DAILY I have reviewed the current psychotropics carefully including drug interactions. Risk benefit ratio favors no change other than as noted in my dictated progress note. Diagnosis: Problems: (1) Anxiety disorder (2) Impulse control disorder (3) Major depressive disorder, recurrent episode (4) Mild cognitive impairment BEA SAWANT MD Sep 29, 2018 23:12
--- NOTE | 2018-09-30 00:57 | NUR ---
Nursing Note The patient was located in her room for her assessment and medication pass. The patient is compliant with her medications and takes them whole. The patient is appropriate during her interactions with this nurse. The patient was more withdrawn and drowsy this evening than is typical for this patient. Orders were given for Stat CMP, CBC, Lactic Acid and arterial blood gas. No critical results noted. The patient remains in her room sleeping.
[2018-09-30 06:39] VITALS: BP 155/82
[2018-09-30] MEDS: OXcarbazepine 150 MG TABLET. PO SCH (07:53)
[2018-09-30] MEDS: FAMOTIDINE 20 MG TABLET PO SCH (07:53)
[2018-09-30] MEDS: CHOLECALCIFEROL (VITAMIN D3) 50,000 UNIT CAPSULE PO SCH (07:53)
[2018-09-30] MEDS: amLODIPine BESYLATE 10 MG TABLET PO SCH (07:53)
[2018-09-30] MEDS: FERROUS SULFATE 325 MG TABLET. PO SCH (07:53)
[2018-09-30] MEDS: DULoxetine HCL 60 MG CAPSULE.DR PO SCH (07:53)
[2018-09-30] MEDS: GABAPENTIN 300 MG CAPSULE. PO SCH ×2 (07:53→20:35)
[2018-09-30] MEDS: PIOGLITAZONE 15 MG TABLET. PO SCH (07:53)
[2018-09-30] MEDS: AMOXICILLIN 250 MG CAPSULE PO SCH ×3 (07:53→20:35)
[2018-09-30] MEDS: levETIRAcetam 500 MG TABLET PO SCH ×2 (07:53→20:35)
[2018-09-30] MEDS: ASCORBIC ACID 500 MG TABLET PO SCH (07:53)
[2018-09-30] MEDS: LACTOBACILLUS RHAMNOSUS GG 1 CAPSULE. PO SCH ×2 (07:53→20:34)
[2018-09-30] MEDS: INSULIN LISPRO 300 UNITS/3 ML INSULN.PEN. SQ SCH ×3 (07:54→17:00)
[2018-09-30] MEDS: oxyCODONE/APAP 10/325 1 TAB TABLET PO SCH ×2 (07:55→20:35)
--- NOTE | 2018-09-30 08:01 | RAD ---
EXAM: AP View of the chest DATE: 09/29/2018 5:34 PM INDICATION: chest congestion getting worse COMPARISON: 09/24/2018, 02/21/2018 FINDINGS/ IMPRESSION: The heart is mildly enlarged. Atherosclerotic calcifications of the tortuous aorta are seen. Retrocardiac left lung base parenchymal airspace opacities may represent developing consolidative process although atelectasis may also have similar appearance. No pleural effusion or pneumothorax. Electronically signed by: Remy Retana MD (09/30/2018 7:58 AM) [facility]
[2018-09-30] MEDS ORDERED: DEXTROSE ORAL GEL 15 GM TUBE. ONE (08:08)
--- NOTE | 2018-09-30 10:20 | NUR ---
Behavior Intervention Response and Plan: BIRP Note: Behavior: Assumed Care of patient, patient located in Dining Room at shift change. Patient exhibited the following behavior Disorganized, Non Compliant, Irritable. Brief assessment on rounds of vital signs, medication needs, lab studies, and pain. Treatment plan problems . Intervention: Patient assessed and the following interventions initiated safety checks 15 Minute Checks Cognitive Assessment , Head to toe Assessment , Medications. Response: After interactions and interventions patient responded in the following manner, Disorganized , Calm ,Non Compliant. Continue to assess behaviors and condition will continue to monitor throughout the shift as needed. Patient educated on ADL's, and hand hygiene. 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 Continue to assess patient for changes in above assessment. Monitor for medication needs, pain, and safety concerns. Hourly rounding performed to ensure safe environment.
[2018-09-30] MEDS: BUDESONIDE 0.5 MG/2 ML NEBU NEB SCH ×2 (10:28→20:27)
[2018-09-30 15:27] VITALS: BP 123/71
--- NOTE | 2018-09-30 18:07 | NUR ---
pt BS low in am. irritable and resistive to cares. after gel bS up to 136. spit out some of am meds. pleasant at lunch. in afternoon. pt placed in bed as she was attempting to disrobe and throw self on floor. refused to get up for supper.
[2018-09-30] MEDS: MELATONIN 3 MG TABLET PO SCH (20:35)
[2018-09-30] MEDS: MIRTAZAPINE 7.5 MG TABLET. PO SCH (20:35)
[2018-09-30] MEDS: INSULIN GLARGINE 300 UNITS/3 ML INSULN.PEN. SQ SCH (20:36)
--- NOTE | 2018-09-30 21:34 | PN ---
DATE: 09/28/2018 PSYCHIATRIC PROGRESS NOTE This late entry 09/28/2018 covers elements not covered in my initial note. SUBJECTIVE: I met with the patient in the evening. The patient slept 7-3/4 hours previous night, takes some naps during the day, not aggressive. REVIEW OF SYSTEMS: Ambulation impaired, in wheelchair. No CV, , pulmonary, eye system symptoms on review. MENTAL STATUS EXAM: Oriented to herself and situation. Speech has some latency, coherent. Abstraction fair, computation impaired, language function intact, attention span short. Mood and affect somewhat anxious at times. LABORATORY DATA: Reviewed. IMPRESSION: Bipolar 1 disorder, mixed with psychotic features; major neurocognitive disorder, early Alzheimer, vascular with delusion. Rest unchanged. PLAN: No change from initial note. MAN Farrah SAWANT MD DR: MARK/daphne JOB#: [id number] / [id number]
--- NOTE | 2018-09-30 21:36 | PN ---
DATE: 09/29/2018 PSYCHIATRIC PROGRESS NOTE This late entry 09/29/2018 covers elements not covered in my initial note. SUBJECTIVE: I met with the patient in the evening and staffed at a treatment team meeting with the entire team in the morning and the patient's daughter, Lashae, attended the treatment team meeting. I reviewed her history at length. Lashae shared how the patient had tied a cord around her neck at [facility]. Daughter wants to find a new facility for her. Daughter has not been able to visit her here since admission because of the daughter's own medical problems. She is somewhat dehydrated on the labs. Slept 7-1/2 hours. Appetite 75%. REVIEW OF SYSTEMS: Ambulation impaired, in wheelchair. No CV, , pulmonary, eye system symptoms on review. MENTAL STATUS EXAM: Oriented to herself and situation. Speech has some latency, coherent. Abstraction fair, computation impaired, language function intact, attention span short. Mood and affect somewhat withdrawn. LABORATORY DATA: Reviewed. IMPRESSION: Unchanged from initial note. PLAN: No change from initial note. MAN Farrah SAWANT MD DR: MARK/daphne JOB#: [id number] / [id number]
--- NOTE | 2018-09-30 22:08 | NUR ---
Behavior Intervention Response and Plan: BIRP Note: Behavior: Assumed Care of patient, patient located in Patient Room at shift change. Patient exhibited the following behavior Calm, Sleeping, Cooperative. Brief assessment on rounds of vital signs, medication needs, lab studies, and pain. Treatment plan problems . Intervention: Patient assessed and the following interventions initiated safety checks 15 Minute Checks Personal Alarm in place , Cognitive Assessment , Head to toe Assessment. Response: After interactions and interventions patient responded in the following manner, Calm , Cooperative ,Compliant. Continue to assess behaviors and condition will continue to monitor throughout the shift as needed. Patient educated on ADL's, and hand hygiene. 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 Continue to assess patient for changes in above assessment. Monitor for medication needs, pain, and safety concerns. Hourly rounding performed to ensure safe environment.
--- NOTE | 2018-09-30 22:16 | NUR ---
Hs meds were given to patient whole, patient attempted to chew pills, I took them out of her mouth gave them to her 1 by 1 patient continued to chew then swallowed them. Patient may benefit from pills crushed in ice cream or pudding.
--- NOTE | 2018-09-30 22:50 | PDOC ---
Exam Note: Neal Note: Please also refer to the separate dictated note~for this date of service dictated separately.~Patient seen individually. Discussed the patient with Nursing staff reviewed the chart.~Reviewed interim history and current functioning. Reviewed vital signs,~Labs/ Radiology~and current medications noted below. Continue current treatment with the changes noted in the dictated addendum note Assessment: Vital Signs: Vital Signs Date Time Temp Pulse Resp B/P (MAP) Pulse Ox O2 Delivery O2 Flow Rate FiO2 09/30/18 20:30 98 Room Air 09/30/18 15:27 97.9 64 20 123/71 (88) I&O Intake and Output 09/30/18 07:01 Intake Total 840 ml Balance 840 ml Intake Oral 840 ml # Voids 1 Labs: Laboratory Tests Test 09/30/18 07:43 09/30/18 09:33 09/30/18 11:23 09/30/18 16:39 Glucose (Fingerstick) 41 mg/dL (70-99) L 136 mg/dL (70-99) H 138 mg/dL (70-99) H 251 mg/dL (70-99) H Test 09/30/18 16:41 09/30/18 20:01 Glucose (Fingerstick) 246 mg/dL (70-99) H 221 mg/dL (70-99) H Current Medications: Meds: Current Medications Acetaminophen (Tylenol) 650 mg PRN Q6HRS PRN PO PAIN / TEMP Last administered on 09/26/18at 12:57; Start 09/15/18 at 21:30 Albuterol Sulfate (Ventolin) 2.5 mg PRN Q4HRS PRN NEB Dyspnea; Start 09/15/18 at 21:30 Diclofenac Sodium (Voltaren) 4 sam PRN QID PRN TP R Knee Pain; Start 09/15/18 at 21:30 Dicyclomine HCl (Bentyl) 10 mg PRN Q8HRS PRN PO Bowel Cramps; Start 09/15/18 at 21:30 Ferrous Sulfate (Feosol) 325 mg DAILY PO Last administered on 09/30/18at 07:53 ; Start 09/16/18 at 09:00 Gabapentin (Neurontin) 300 mg BID PO Last administered on 09/30/18at 20:35; Start 09/16/18 at 09:00 Hydrocortisone (Proctosol-Hc) 1 sam PRN Q24HRS PRN RC hemorrhoids; Start at 21:30 Al Hydroxide/Mg Hydroxide (Mylanta Plus Xs) 15 ml PRN AFTMEALHC PRN PO DYSPEPSIA; Start 09/15/18 at 21:30 Magnesium Hydroxide (Milk Of Magnesia) 2,400 mg PRN QHS PRN PO CONSTIPATION; Start 09/15/18 at 21:30 Multi-Ingredient Ointment (Analgesic [place]) 1 sam PRN QID PRN TP MUSCLE PAIN; Start 09/15/18 at 21:30 Nitroglycerin (Nitrostat) 0.4 mg PRN Q5MIN PRN SL CHEST PAIN; Start 09/15/18 at 21:30 Nystatin (Nystop) 1 sam PRN TID PRN TP REDNESS; Start 09/15/18 at 21:30 Oxycodone/ Acetaminophen (Percocet 10/325) 1 tab BID PO Last administered on at 20:35; Start 09/16/18 at 09:00 Oxycodone/ Acetaminophen (Percocet 10/325) 1 tab PRN Q4HRS PRN PO PAIN Last administered on 09/26/18at 18:17; Start 09/15/18 at 21:30 Amlodipine Besylate (Norvasc) 10 mg DAILY PO Last administered on 09/30/18at 07 :53; Start 09/16/18 at 09:00 Ascorbic Acid (Vitamin C) 500 mg DAILY PO Last administered on 09/30/18at 07:53 ; Start 09/16/18 at 09:00 Non-Formulary Medication (Budesonide ) 0.5 mg RTBID NEB ; Start 09/16/18 at 08: 00; Stop 09/16/18 at 08:00; Status DC Artificial Tears (Artificial Tears) 1 drop PRN TID PRN OU DRY EYE; Start at 21:45 Duloxetine HCl (Cymbalta) 60 mg DAILY PO Last administered on 09/30/18at 07:53 ; Start 09/16/18 at 09:00 Famotidine (Pepcid) 20 mg DAILY PO Last administered on 09/30/18at 07:53; Start 09/15/18 at 09:00 Guaifenesin (Robitussin Dm) 10 ml PRN Q4HRS PRN PO COUGH; Start 09/15/18 at 21: 45 Non-Formulary Medication (Insulin Aspart (Novolog Flexpen)) 200-250 2units 251- ... TIDWMEALHC SQ ; Start 09/16/18 at 08:00; Status UNV Levetiracetam (Keppra) 500 mg BID PO Last administered on 09/30/18at 20:35; Start 09/16/18 at 09:00 Loperamide HCl (Imodium) 2 mg PRN Q4HRS PRN PO DIARRHEA; Start 09/15/18 at 21: 45 Melatonin 6 mg QHS PO Last administered on 09/30/18at 20:35; Start 09/16/18 at 21:00 Mirtazapine (Remeron) 7.5 mg QHS PO Last administered on 09/30/18at 20:35; Start 09/16/18 at 21:00 Ondansetron HCl (Zofran Odt) 4 mg PRN Q4HRS PRN PO NAUSEA/VOMITING; Start 09/15 at 21:45 Oxcarbazepine (Trileptal) 150 mg BID@0900,1300 PO Last administered on at 12:48; Start 09/16/18 at 09:00; Stop 09/27/18 at 16:40; Status DC Pioglitazone HCl (Actos) 15 mg DAILY PO Last administered on 09/30/18at 07:53; Start 09/16/18 at 09:00 Budesonide (Pulmicort) 0.5 mg RTBID NEB Last administered on 09/30/18at 20:27; Start 09/16/18 at 08:00 Insulin Human Lispro (HumaLOG) 0-5 UNITS TIDWMEALS SQ Last administered on at 12:18; Start 09/16/18 at 08:00; Stop 09/28/18 at 14:39; Status DC Insulin Glargine (Lantus) 10 units QHS SQ Last administered on 09/17/18at 19:49 ; Start 09/16/18 at 21:00; Stop 09/18/18 at 15:41; Status DC Vitamin D (Vitamin D3) 50,000 unit WEEKLY PO Last administered on 09/30/18at 07 :53; Start 09/16/18 at 16:15 Insulin Glargine (Lantus) 20 units QHS SQ Last administered on 09/27/18at 20:46 ; Start 09/18/18 at 21:00; Stop 09/28/18 at 14:37; Status DC Oxcarbazepine (Trileptal) 150 mg DAILY PO Last administered on 09/30/18at 07:53 ; Start 09/28/18 at 09:00 Oxcarbazepine (Trileptal) 300 mg 1300 PO Last administered on 09/30/18at 13:41 ; Start 09/28/18 at 13:00 Insulin Glargine (Lantus) 15 units QHS SQ Last administered on 09/30/18at 20:36 ; Start 09/28/18 at 21:00 Insulin Human Lispro (HumaLOG) 0-9 UNITS TIDWMEALS SQ Last administered on at 17:38; Start 09/28/18 at 17:00 Dextrose 12.5 gm PRN Q15MIN PRN IV SEE COMMENTS; Start 09/28/18 at 14:45 Amoxicillin (Amoxil) 250 mg [id number] PO Last administered on 09/30/18at 20:35; Start 09/29/18 at 21:00 Lactobacillus Rhamnosus (Culturelle) 1 cap BID PO Last administered on at 20:34; Start 09/29/18 at 21:00 Glucose (Insta-Glucose) 15 gm STK-MED ONCE .ROUTE Last administered on at 08:08; Start 09/30/18 at 08:08; Stop 09/30/18 at 08:10; Status DC Active Scripts Active Reported Trileptal (Oxcarbazepine) 150 Mg Tablet 150 Mg PO BID@0900,1300 Zyprexa (Olanzapine) 5 Mg Tablet 5 Mg PO PRN Q2HR PRN dissolve in mouth. Max 20mg/24hrs Mirtazapine 15 Mg Tablet 7.5 Mg PO QHS Proctosol-Hc (Hydrocortisone) 28.35 Gm Cream..g. 1 Sam RC PRN Q24HRS PRN Vitamin C (Ascorbic Acid) 500 Mg Capsule 500 Mg PO DAILY Novolog Flexpen (Insulin Aspart) 100 Unit/1 Ml Insuln.pen 2-10 Units SQ TIDWMEALHC BS 200-250 2 units BS 251-300 4 units BS 301-350 8 units BS 351-400 10 units BS >400 CALL MD Watson (Duloxetine Hcl) 60 Mg Capsule.dr 60 Mg PO DAILY Famotidine 20 Mg Tablet 20 Mg PO DAILY Mag-Al Plus Xs Suspension (Mag Hydrox/Al Hydrox/Simeth) 30 Ml Oral.susp 15 Ml PO PRN AFTMEALHC PRN Robitussin Cough-Chest Dm Liq (Guaifenesin/Dextromethorphan) 237 Ml Liquid 10 Ml PO PRN Q4HRS PRN Percocet 10-325 Mg Tablet (Oxycodone Hcl/Acetaminophen) 1 Each Tablet 1 Tab PO PRN Q4HRS PRN Percocet 10-325 Mg Tablet (Oxycodone Hcl/Acetaminophen) 1 Each Tablet 1 Tab PO BID Ondansetron Hcl 4 Mg Tablet 4 Mg PO PRN Q4HRS PRN Nystatin 15 Gm Powder 1 Sam TP PRN TID PRN Nitrostat (Nitroglycerin) 0.4 Mg Tab.subl 0.4 Mg SL PRN Q5MIN PRN HOld for SBP less than or equal to 90mmHG. Call Provider for shest pain unrelieved by 1 sublingual nitro, may repeat x2 if chest pain persists. Melatonin 5 Mg Tablet (Melatonin/Pyridoxine) 1 Each Tablet 6 Mg PO QHS Loperamide (Loperamide Hcl) 2 Mg Tablet 2 Mg PO PRN Q4HRS PRN MDD 16mg Keppra (Levetiracetam) 500 Mg Tablet 500 Mg PO BID Ferrous Sulfate 325 Mg Tablet 325 Mg PO DAILY Neurontin (Gabapentin) 300 Mg Capsule 300 Mg PO BID Voltaren (Diclofenac Sodium) 100 Gm Gel..gram. 4 Sam TP PRN QID PRN Budesonide 0.5 Mg/2 Ml Ampul.neb 0.5 Mg NEB RTBID Dicyclomine Hcl 10 Mg Capsule 10 Mg PO PRN Q8HRS PRN Artificial Tears Eye Drops (Dextran 70/Hypromellose) 15 Ml Drops 1 Drop OU TID PRN Anusol-Hc (Hydrocortisone Acetate) 25 Mg Supp.rect 25 Mg RC PRN Q12HR PRN Norvasc (Amlodipine Besylate) 10 Mg Tablet 10 Mg PO DAILY Tylenol (Acetaminophen) 325 Mg Tablet 650 Mg PO PRN Q6HRS PRN Max acetaminophen dose os 4000mg/24hrs from all sources Albuterol Sulfate Neb Soln (Albuterol Sulfate) 2.5 Mg/3 Ml Vial.neb 2.5 Mg NEB PRN Q4HRS PRN Milk Of Magnesia (Magnesium Hydroxide) 400 Mg/5 Ml Oral.susp 2,400 Mg PO PRN QHS PRN Actos (Pioglitazone Hcl) 15 Mg Tablet 15 Mg PO DAILY I have reviewed the current psychotropics carefully including drug interactions. Risk benefit ratio favors no change other than as noted in my dictated progress note. Diagnosis: Problems: (1) Anxiety disorder (2) Impulse control disorder (3) Major depressive disorder, recurrent episode (4) Mild cognitive impairment BEA SAWANT MD Sep 30, 2018 22:50
[2018-10-01 06:37] VITALS: BP 166/87
[2018-10-01] MEDS: OXcarbazepine 150 MG TABLET. PO SCH ×2 (07:40→13:42)
[2018-10-01] MEDS: DULoxetine HCL 60 MG CAPSULE.DR PO SCH (07:40)
[2018-10-01] MEDS: levETIRAcetam 500 MG TABLET PO SCH ×2 (07:40→20:04)
[2018-10-01] MEDS: ASCORBIC ACID 500 MG TABLET PO SCH (07:40)
[2018-10-01] MEDS: LACTOBACILLUS RHAMNOSUS GG 1 CAPSULE. PO SCH ×2 (07:41→20:03)
[2018-10-01] MEDS: amLODIPine BESYLATE 10 MG TABLET PO SCH (07:41)
[2018-10-01] MEDS: AMOXICILLIN 250 MG CAPSULE PO SCH ×3 (07:41→20:04)
[2018-10-01] MEDS: oxyCODONE/APAP 10/325 1 TAB TABLET PO SCH ×2 (07:41→20:04)
[2018-10-01] MEDS: FERROUS SULFATE 325 MG TABLET. PO SCH (07:41)
[2018-10-01] MEDS: GABAPENTIN 300 MG CAPSULE. PO SCH ×2 (07:41→20:03)
[2018-10-01] MEDS: PIOGLITAZONE 15 MG TABLET. PO SCH (07:41)
[2018-10-01] MEDS: FAMOTIDINE 20 MG TABLET PO SCH (07:41)
[2018-10-01] MEDS: INSULIN LISPRO 300 UNITS/3 ML INSULN.PEN. SQ SCH ×3 (07:42→18:46)
[2018-10-01] MEDS: BUDESONIDE 0.5 MG/2 ML NEBU NEB SCH ×2 (09:58→20:13)
--- NOTE | 2018-10-01 10:05 | NUR ---
Behavior Intervention Response and Plan: BIRP Note: Behavior: Assumed Care of patient, patient located in Dining Room at shift change. Patient exhibited the following behavior Disorganized, Non Compliant, Irritable. Brief assessment on rounds of vital signs, medication needs, lab studies, and pain. Treatment plan problems . Intervention: Patient assessed and the following interventions initiated safety checks 15 Minute Checks Cognitive Assessment , Head to toe Assessment , Medications. Response: After interactions and interventions patient responded in the following manner, Disorganized , Calm ,Non Compliant. Continue to assess behaviors and condition will continue to monitor throughout the shift as needed. Patient educated on ADL's, and hand hygiene. 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 Continue to assess patient for changes in above assessment. Monitor for medication needs, pain, and safety concerns. Hourly rounding performed to ensure safe environment.
[2018-10-01 16:24] VITALS: BP 127/75
--- NOTE | 2018-10-01 17:16 | NUR ---
pt up for meals in wc. awake and alert at breakfast took meds whole without problem. irritable at lunch. took meds with encouragement. still impulsive and attempting to stand without assistance.
[2018-10-01] MEDS: MIRTAZAPINE 7.5 MG TABLET. PO SCH (20:04)
[2018-10-01] MEDS: MELATONIN 3 MG TABLET PO SCH (20:04)
[2018-10-01] MEDS: INSULIN GLARGINE 300 UNITS/3 ML INSULN.PEN. SQ SCH (20:13)
--- NOTE | 2018-10-01 22:12 | PDOC ---
Exam Note: Neal Note: Please also refer to the separate dictated note~for this date of service dictated separately.~Patient seen individually. Discussed the patient with Nursing staff reviewed the chart.~Reviewed interim history and current functioning. Reviewed vital signs,~Labs/ Radiology~and current medications noted below. Continue current treatment with the changes noted in the dictated addendum note Assessment: Vital Signs: Vital Signs Date Time Temp Pulse Resp B/P (MAP) Pulse Ox O2 Delivery O2 Flow Rate FiO2 10/01/18 20:15 100 Room Air 10/01/18 16:24 97.0 78 22 127/75 (92) I&O Intake and Output 10/01/18 07:01 Intake Total 720 ml Balance 720 ml Intake Oral 720 ml Labs: Laboratory Tests Test 10/01/18 07:16 10/01/18 11:49 10/01/18 17:37 10/01/18 19:34 Glucose (Fingerstick) 102 mg/dL (70-99) H 156 mg/dL (70-99) H 180 mg/dL (70-99) H 217 mg/dL (70-99) H Current Medications: Meds: Current Medications Acetaminophen (Tylenol) 650 mg PRN Q6HRS PRN PO PAIN / TEMP Last administered on 09/26/18at 12:57; Start 09/15/18 at 21:30 Albuterol Sulfate (Ventolin) 2.5 mg PRN Q4HRS PRN NEB Dyspnea; Start 09/15/18 at 21:30 Diclofenac Sodium (Voltaren) 4 sam PRN QID PRN TP R Knee Pain; Start 09/15/18 at 21:30 Dicyclomine HCl (Bentyl) 10 mg PRN Q8HRS PRN PO Bowel Cramps; Start 09/15/18 at 21:30 Ferrous Sulfate (Feosol) 325 mg DAILY PO Last administered on 10/01/18at 07:41 ; Start 09/16/18 at 09:00 Gabapentin (Neurontin) 300 mg BID PO Last administered on 10/01/18at 20:03; Start 09/16/18 at 09:00 Hydrocortisone (Proctosol-Hc) 1 sam PRN Q24HRS PRN RC hemorrhoids; Start at 21:30 Al Hydroxide/Mg Hydroxide (Mylanta Plus Xs) 15 ml PRN AFTMEALHC PRN PO DYSPEPSIA; Start 09/15/18 at 21:30 Magnesium Hydroxide (Milk Of Magnesia) 2,400 mg PRN QHS PRN PO CONSTIPATION; Start 09/15/18 at 21:30 Multi-Ingredient Ointment (Analgesic [place]) 1 sam PRN QID PRN TP MUSCLE PAIN; Start 09/15/18 at 21:30 Nitroglycerin (Nitrostat) 0.4 mg PRN Q5MIN PRN SL CHEST PAIN; Start 09/15/18 at 21:30 Nystatin (Nystop) 1 sam PRN TID PRN TP REDNESS; Start 09/15/18 at 21:30 Oxycodone/ Acetaminophen (Percocet 10/325) 1 tab BID PO Last administered on at 20:04; Start 09/16/18 at 09:00 Oxycodone/ Acetaminophen (Percocet 10/325) 1 tab PRN Q4HRS PRN PO PAIN Last administered on 09/26/18at 18:17; Start 09/15/18 at 21:30 Amlodipine Besylate (Norvasc) 10 mg DAILY PO Last administered on 10/01/18at 07 :41; Start 09/16/18 at 09:00 Ascorbic Acid (Vitamin C) 500 mg DAILY PO Last administered on 10/01/18at 07:40 ; Start 09/16/18 at 09:00 Non-Formulary Medication (Budesonide ) 0.5 mg RTBID NEB ; Start 09/16/18 at 08: 00; Stop 09/16/18 at 08:00; Status DC Artificial Tears (Artificial Tears) 1 drop PRN TID PRN OU DRY EYE; Start at 21:45 Duloxetine HCl (Cymbalta) 60 mg DAILY PO Last administered on 10/01/18at 07:40 ; Start 09/16/18 at 09:00 Famotidine (Pepcid) 20 mg DAILY PO Last administered on 10/01/18at 07:41; Start 09/15/18 at 09:00 Guaifenesin (Robitussin Dm) 10 ml PRN Q4HRS PRN PO COUGH; Start 09/15/18 at 21: 45 Non-Formulary Medication (Insulin Aspart (Novolog Flexpen)) 200-250 2units 251- ... TIDWMEALHC SQ ; Start 09/16/18 at 08:00; Status UNV Levetiracetam (Keppra) 500 mg BID PO Last administered on 10/01/18at 20:04; Start 09/16/18 at 09:00 Loperamide HCl (Imodium) 2 mg PRN Q4HRS PRN PO DIARRHEA; Start 09/15/18 at 21: 45 Melatonin 6 mg QHS PO Last administered on 10/01/18at 20:04; Start 09/16/18 at 21:00 Mirtazapine (Remeron) 7.5 mg QHS PO Last administered on 10/01/18at 20:04; Start 09/16/18 at 21:00 Ondansetron HCl (Zofran Odt) 4 mg PRN Q4HRS PRN PO NAUSEA/VOMITING; Start 09/15 at 21:45 Oxcarbazepine (Trileptal) 150 mg BID@0900,1300 PO Last administered on at 12:48; Start 09/16/18 at 09:00; Stop 09/27/18 at 16:40; Status DC Pioglitazone HCl (Actos) 15 mg DAILY PO Last administered on 10/01/18at 07:41; Start 09/16/18 at 09:00 Budesonide (Pulmicort) 0.5 mg RTBID NEB Last administered on 10/01/18at 20:13; Start 09/16/18 at 08:00 Insulin Human Lispro (HumaLOG) 0-5 UNITS TIDWMEALS SQ Last administered on at 12:18; Start 09/16/18 at 08:00; Stop 09/28/18 at 14:39; Status DC Insulin Glargine (Lantus) 10 units QHS SQ Last administered on 09/17/18at 19:49 ; Start 09/16/18 at 21:00; Stop 09/18/18 at 15:41; Status DC Vitamin D (Vitamin D3) 50,000 unit WEEKLY PO Last administered on 09/30/18at 07 :53; Start 09/16/18 at 16:15 Insulin Glargine (Lantus) 20 units QHS SQ Last administered on 09/27/18at 20:46 ; Start 09/18/18 at 21:00; Stop 09/28/18 at 14:37; Status DC Oxcarbazepine (Trileptal) 150 mg DAILY PO Last administered on 10/01/18at 13:42 ; Start 09/28/18 at 09:00 Oxcarbazepine (Trileptal) 300 mg 1300 PO Last administered on 10/01/18at 13:00 ; Start 09/28/18 at 13:00 Insulin Glargine (Lantus) 15 units QHS SQ Last administered on 10/01/18at 20:13 ; Start 09/28/18 at 21:00 Insulin Human Lispro (HumaLOG) 0-9 UNITS TIDWMEALS SQ Last administered on at 18:46; Start 09/28/18 at 17:00 Dextrose 12.5 gm PRN Q15MIN PRN IV SEE COMMENTS; Start 09/28/18 at 14:45 Amoxicillin (Amoxil) 250 mg [id number] PO Last administered on 10/01/18at 20:04; Start 09/29/18 at 21:00 Lactobacillus Rhamnosus (Culturelle) 1 cap BID PO Last administered on at 20:03; Start 09/29/18 at 21:00 Glucose (Insta-Glucose) 15 gm STK-MED ONCE .ROUTE Last administered on at 08:08; Start 09/30/18 at 08:08; Stop 09/30/18 at 08:10; Status DC Active Scripts Active Reported Trileptal (Oxcarbazepine) 150 Mg Tablet 150 Mg PO BID@0900,1300 Zyprexa (Olanzapine) 5 Mg Tablet 5 Mg PO PRN Q2HR PRN dissolve in mouth. Max 20mg/24hrs Mirtazapine 15 Mg Tablet 7.5 Mg PO QHS Proctosol-Hc (Hydrocortisone) 28.35 Gm Cream..g. 1 Sam RC PRN Q24HRS PRN Vitamin C (Ascorbic Acid) 500 Mg Capsule 500 Mg PO DAILY Novolog Flexpen (Insulin Aspart) 100 Unit/1 Ml Insuln.pen 2-10 Units SQ TIDWMEALHC BS 200-250 2 units BS 251-300 4 units BS 301-350 8 units BS 351-400 10 units BS >400 CALL MD Watson (Duloxetine Hcl) 60 Mg Capsule.dr 60 Mg PO DAILY Famotidine 20 Mg Tablet 20 Mg PO DAILY Mag-Al Plus Xs Suspension (Mag Hydrox/Al Hydrox/Simeth) 30 Ml Oral.susp 15 Ml PO PRN AFTMEALHC PRN Robitussin Cough-Chest Dm Liq (Guaifenesin/Dextromethorphan) 237 Ml Liquid 10 Ml PO PRN Q4HRS PRN Percocet 10-325 Mg Tablet (Oxycodone Hcl/Acetaminophen) 1 Each Tablet 1 Tab PO PRN Q4HRS PRN Percocet 10-325 Mg Tablet (Oxycodone Hcl/Acetaminophen) 1 Each Tablet 1 Tab PO BID Ondansetron Hcl 4 Mg Tablet 4 Mg PO PRN Q4HRS PRN Nystatin 15 Gm Powder 1 Sam TP PRN TID PRN Nitrostat (Nitroglycerin) 0.4 Mg Tab.subl 0.4 Mg SL PRN Q5MIN PRN HOld for SBP less than or equal to 90mmHG. Call Provider for shest pain unrelieved by 1 sublingual nitro, may repeat x2 if chest pain persists. Melatonin 5 Mg Tablet (Melatonin/Pyridoxine) 1 Each Tablet 6 Mg PO QHS Loperamide (Loperamide Hcl) 2 Mg Tablet 2 Mg PO PRN Q4HRS PRN MDD 16mg Keppra (Levetiracetam) 500 Mg Tablet 500 Mg PO BID Ferrous Sulfate 325 Mg Tablet 325 Mg PO DAILY Neurontin (Gabapentin) 300 Mg Capsule 300 Mg PO BID Voltaren (Diclofenac Sodium) 100 Gm Gel..gram. 4 Sam TP PRN QID PRN Budesonide 0.5 Mg/2 Ml Ampul.neb 0.5 Mg NEB RTBID Dicyclomine Hcl 10 Mg Capsule 10 Mg PO PRN Q8HRS PRN Artificial Tears Eye Drops (Dextran 70/Hypromellose) 15 Ml Drops 1 Drop OU TID PRN Anusol-Hc (Hydrocortisone Acetate) 25 Mg Supp.rect 25 Mg RC PRN Q12HR PRN Norvasc (Amlodipine Besylate) 10 Mg Tablet 10 Mg PO DAILY Tylenol (Acetaminophen) 325 Mg Tablet 650 Mg PO PRN Q6HRS PRN Max acetaminophen dose os 4000mg/24hrs from all sources Albuterol Sulfate Neb Soln (Albuterol Sulfate) 2.5 Mg/3 Ml Vial.neb 2.5 Mg NEB PRN Q4HRS PRN Milk Of Magnesia (Magnesium Hydroxide) 400 Mg/5 Ml Oral.susp 2,400 Mg PO PRN QHS PRN Actos (Pioglitazone Hcl) 15 Mg Tablet 15 Mg PO DAILY I have reviewed the current psychotropics carefully including drug interactions. Risk benefit ratio favors no change other than as noted in my dictated progress note. Diagnosis: Problems: (1) Anxiety disorder (2) Impulse control disorder (3) Major depressive disorder, recurrent episode (4) Mild cognitive impairment BEA SAWANT MD Oct 01, 2018 22:12
--- NOTE | 2018-10-02 00:05 | NUR ---
Pt sitting calmly in the dayroom. Pt appears drowsy, refusing to open her eyes during medication administration. Compliant with whole medications and assessment.
[2018-10-02 06:39] VITALS: BP 151/92
[2018-10-02] MEDS: AMOXICILLIN 250 MG CAPSULE PO SCH ×3 (07:46→20:27)
[2018-10-02] MEDS: levETIRAcetam 500 MG TABLET PO SCH ×2 (07:46→20:27)
[2018-10-02] MEDS: amLODIPine BESYLATE 10 MG TABLET PO SCH (07:47)
[2018-10-02] MEDS: FAMOTIDINE 20 MG TABLET PO SCH (07:47)
[2018-10-02] MEDS: ASCORBIC ACID 500 MG TABLET PO SCH (07:47)
[2018-10-02] MEDS: LACTOBACILLUS RHAMNOSUS GG 1 CAPSULE. PO SCH ×2 (07:47→20:27)
[2018-10-02] MEDS: GABAPENTIN 300 MG CAPSULE. PO SCH ×2 (07:47→20:27)
[2018-10-02] MEDS: OXcarbazepine 150 MG TABLET. PO SCH (07:47)
[2018-10-02] MEDS: FERROUS SULFATE 325 MG TABLET. PO SCH (07:47)
[2018-10-02] MEDS: PIOGLITAZONE 15 MG TABLET. PO SCH (07:47)
[2018-10-02] MEDS: oxyCODONE/APAP 10/325 1 TAB TABLET PO SCH ×2 (07:49→20:27)
[2018-10-02] MEDS: INSULIN LISPRO 300 UNITS/3 ML INSULN.PEN. SQ SCH ×3 (07:49→17:00)
[2018-10-02] MEDS: BUDESONIDE 0.5 MG/2 ML NEBU NEB SCH ×2 (09:46→20:29)
--- NOTE | 2018-10-02 09:58 | NUR ---
Behavior Intervention Response and Plan: BIRP Note: Behavior: Assumed Care of patient, patient located in Dining Room at shift change. Patient exhibited the following behavior Disorganized, Non Compliant, Irritable. Brief assessment on rounds of vital signs, medication needs, lab studies, and pain. Treatment plan problems . Intervention: Patient assessed and the following interventions initiated safety checks 15 Minute Checks Cognitive Assessment , Head to toe Assessment , Medications. Response: After interactions and interventions patient responded in the following manner, Disorganized , Calm ,Non Compliant. Continue to assess behaviors and condition will continue to monitor throughout the shift as needed. Patient educated on ADL's, and hand hygiene. 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 Continue to assess patient for changes in above assessment. Monitor for medication needs, pain, and safety concerns. Hourly rounding performed to ensure safe environment.
--- NOTE | 2018-10-02 15:15 | PN ---
DATE: 10/02/2018 This is a late entry 09/30/2018 covers elements not covered in my initial note. SUBJECTIVE: I met with the patient in the evening. The patient slept 6-3/4 hours previous night. Blood sugar was low in the morning. She was resistive of medication and previous night she was disrobing. Chest x-ray is negative. Arterial blood gases noncontributory before medically to Dr. Mcguire. REVIEW OF SYSTEMS: Ambulation impaired, in wheelchair. No CV, , pulmonary, eye, ENT system symptoms on review. MENTAL STATUS EXAM: Oriented to herself and situation. Speech moderate latency, often responses monosyllabic, traction fair, computation impaired, language function intact, attention span short. Mood and affect somewhat withdrawn. LABORATORY DATA: Reviewed. IMPRESSION: Bipolar 1 disorder, mixed with psychotic features; cognitive disorder, unspecified. PLAN: No change from initial note. Continue psychotropics per admission note for now. MAN Farrah SAWANT MD DR: MARK/daphne JOB#: [id number] / [id number]
--- NOTE | 2018-10-02 15:24 | PN ---
DATE: 10/01/2018 This late entry 10/01/2018 covers elements not covered in my initial note. SUBJECTIVE: I met with the patient in the evening. The patient slept 7 hours previous night. She has been somewhat tired, somewhat withdrawn, sedated at times, a little more confused. REVIEW OF SYSTEMS: Ambulation impaired, in wheelchair. No CV, , pulmonary, eye, ENT system symptoms on review. Reliability varies. MENTAL STATUS EXAM: Oriented to herself and situation. Speech moderate latency, often responses monosyllabic. Abstraction fair, computation impaired, language function intact. Mood and affect somewhat withdrawn. LABORATORY DATA: Reviewed. IMPRESSION: Unchanged from initial note. PLAN: Change Cymbalta 60 mg a.m. to the bedtime dosage. Rest unchanged from initial note. MAN Farrah SAWANT MD DR: MARK/daphne JOB#: [id number] / [id number]
--- NOTE | 2018-10-02 15:25 | NUR ---
pt up for meals but has been drowsy on and off. compliant with meds and cares.
[2018-10-02 16:36] VITALS: BP 113/66
[2018-10-02] MEDS: MIRTAZAPINE 7.5 MG TABLET. PO SCH (20:27)
[2018-10-02] MEDS: MELATONIN 3 MG TABLET PO SCH (20:27)
[2018-10-02] MEDS: DULoxetine HCL 60 MG CAPSULE.DR PO SCH (20:28)
[2018-10-02] MEDS: INSULIN GLARGINE 300 UNITS/3 ML INSULN.PEN. SQ SCH (20:37)
--- NOTE | 2018-10-02 21:41 | RAD ---
CT scan of the head without contrast 10/02/2018 Clinical History: Mental status changes. Technique: Unenhanced, contiguous, 5 mm axial sections were obtained through the head. One or more of the following individualized dose reduction techniques were utilized for this study: 1. Automated exposure control. 2. Adjustment of the mA and/or kV according to patient size. 3. Use of iterative reconstruction technique. Findings: Comparison study is dated 03/24/2018. There is generalized parenchymal atrophy. Areas of decreased attenuation are seen within the periventricular and subcortical white matter of both cerebral hemispheres consistent with areas of small vessel ischemic disease. No acute parenchymal abnormality is seen. No extra-axial fluid collection is noted. No skull fracture is seen. Impression:No acute intracranial abnormality is seen. Electronically signed by: Earl Moreno MD (10/02/2018 9:37 PM) [facility]
--- NOTE | 2018-10-02 22:58 | PDOC ---
Exam Note: Nela Note: Please also refer to the separate dictated note~for this date of service dictated separately.~Patient seen individually. Discussed the patient with Nursing staff reviewed the chart.~Reviewed interim history and current functioning. Reviewed vital signs,~Labs/ Radiology~and current medications noted below. Continue current treatment with the changes noted in the dictated addendum note Assessment: Vital Signs: Vital Signs Date Time Temp Pulse Resp B/P (MAP) Pulse Ox O2 Delivery O2 Flow Rate FiO2 10/02/18 20:30 100 Room Air 10/02/18 16:36 97.6 79 20 113/66 (82) I&O Intake and Output 10/02/18 07:01 Intake Total 840 ml Balance 840 ml Intake Oral 840 ml # Bowel Movements 1 Labs: Laboratory Tests Test 10/02/18 07:29 10/02/18 11:25 10/02/18 16:27 10/02/18 19:01 Glucose (Fingerstick) 130 mg/dL (70-99) H 232 mg/dL (70-99) H 249 mg/dL (70-99) H 183 mg/dL (70-99) H Current Medications: Meds: Current Medications Acetaminophen (Tylenol) 650 mg PRN Q6HRS PRN PO PAIN / TEMP Last administered on 09/26/18at 12:57; Start 09/15/18 at 21:30 Albuterol Sulfate (Ventolin) 2.5 mg PRN Q4HRS PRN NEB Dyspnea; Start 09/15/18 at 21:30 Diclofenac Sodium (Voltaren) 4 sam PRN QID PRN TP R Knee Pain; Start 09/15/18 at 21:30 Dicyclomine HCl (Bentyl) 10 mg PRN Q8HRS PRN PO Bowel Cramps; Start 09/15/18 at 21:30 Ferrous Sulfate (Feosol) 325 mg DAILY PO Last administered on 10/02/18at 07:47 ; Start 09/16/18 at 09:00 Gabapentin (Neurontin) 300 mg BID PO Last administered on 10/02/18at 20:27; Start 09/16/18 at 09:00 Hydrocortisone (Proctosol-Hc) 1 sam PRN Q24HRS PRN RC hemorrhoids; Start at 21:30 Al Hydroxide/Mg Hydroxide (Mylanta Plus Xs) 15 ml PRN AFTMEALHC PRN PO DYSPEPSIA; Start 09/15/18 at 21:30 Magnesium Hydroxide (Milk Of Magnesia) 2,400 mg PRN QHS PRN PO CONSTIPATION; Start 09/15/18 at 21:30 Multi-Ingredient Ointment (Analgesic [place]) 1 sam PRN QID PRN TP MUSCLE PAIN; Start 09/15/18 at 21:30 Nitroglycerin (Nitrostat) 0.4 mg PRN Q5MIN PRN SL CHEST PAIN; Start 09/15/18 at 21:30 Nystatin (Nystop) 1 sam PRN TID PRN TP REDNESS; Start 09/15/18 at 21:30 Oxycodone/ Acetaminophen (Percocet 10/325) 1 tab BID PO Last administered on at 20:27; Start 09/16/18 at 09:00 Oxycodone/ Acetaminophen (Percocet 10/325) 1 tab PRN Q4HRS PRN PO PAIN Last administered on 09/26/18at 18:17; Start 09/15/18 at 21:30 Amlodipine Besylate (Norvasc) 10 mg DAILY PO Last administered on 10/02/18at 07 :47; Start 09/16/18 at 09:00 Ascorbic Acid (Vitamin C) 500 mg DAILY PO Last administered on 10/02/18at 07:47 ; Start 09/16/18 at 09:00 Non-Formulary Medication (Budesonide ) 0.5 mg RTBID NEB ; Start 09/16/18 at 08: 00; Stop 09/16/18 at 08:00; Status DC Artificial Tears (Artificial Tears) 1 drop PRN TID PRN OU DRY EYE; Start at 21:45 Duloxetine HCl (Cymbalta) 60 mg DAILY PO Last administered on 10/01/18at 07:40 ; Start 09/16/18 at 09:00; Stop 10/01/18 at 22:50; Status DC Famotidine (Pepcid) 20 mg DAILY PO Last administered on 10/02/18at 07:47; Start 09/15/18 at 09:00 Guaifenesin (Robitussin Dm) 10 ml PRN Q4HRS PRN PO COUGH; Start 09/15/18 at 21: 45 Non-Formulary Medication (Insulin Aspart (Novolog Flexpen)) 200-250 2units 251- ... TIDWMEALHC SQ ; Start 09/16/18 at 08:00; Status UNV Levetiracetam (Keppra) 500 mg BID PO Last administered on 10/02/18at 20:27; Start 09/16/18 at 09:00 Loperamide HCl (Imodium) 2 mg PRN Q4HRS PRN PO DIARRHEA; Start 09/15/18 at 21: 45 Melatonin 6 mg QHS PO Last administered on 10/02/18at 20:27; Start 09/16/18 at 21:00 Mirtazapine (Remeron) 7.5 mg QHS PO Last administered on 10/02/18at 20:27; Start 09/16/18 at 21:00 Ondansetron HCl (Zofran Odt) 4 mg PRN Q4HRS PRN PO NAUSEA/VOMITING; Start 09/15 at 21:45 Oxcarbazepine (Trileptal) 150 mg BID@0900,1300 PO Last administered on at 12:48; Start 09/16/18 at 09:00; Stop 09/27/18 at 16:40; Status DC Pioglitazone HCl (Actos) 15 mg DAILY PO Last administered on 10/02/18at 07:47; Start 09/16/18 at 09:00 Budesonide (Pulmicort) 0.5 mg RTBID NEB Last administered on 10/02/18at 20:29; Start 09/16/18 at 08:00 Insulin Human Lispro (HumaLOG) 0-5 UNITS TIDWMEALS SQ Last administered on at 12:18; Start 09/16/18 at 08:00; Stop 09/28/18 at 14:39; Status DC Insulin Glargine (Lantus) 10 units QHS SQ Last administered on 09/17/18at 19:49 ; Start 09/16/18 at 21:00; Stop 09/18/18 at 15:41; Status DC Vitamin D (Vitamin D3) 50,000 unit WEEKLY PO Last administered on 09/30/18at 07 :53; Start 09/16/18 at 16:15 Insulin Glargine (Lantus) 20 units QHS SQ Last administered on 09/27/18at 20:46 ; Start 09/18/18 at 21:00; Stop 09/28/18 at 14:37; Status DC Oxcarbazepine (Trileptal) 150 mg DAILY PO Last administered on 10/02/18 07:47 ; Start 09/28/18 at 09:00 Oxcarbazepine (Trileptal) 300 mg 1300 PO Last administered on 10/02/18at 13:00 ; Start 09/28/18 at 13:00 Insulin Glargine (Lantus) 15 units QHS SQ Last administered on 10/02/18at 20:37 ; Start 09/28/18 at 21:00 Insulin Human Lispro (HumaLOG) 0-9 UNITS TIDWMEALS SQ Last administered on at 17:00; Start 09/28/18 at 17:00 Dextrose 12.5 gm PRN Q15MIN PRN IV SEE COMMENTS; Start 09/28/18 at 14:45 Amoxicillin (Amoxil) 250 mg [id number] PO Last administered on 10/02/18at 20:27; Start 09/29/18 at 21:00 Lactobacillus Rhamnosus (Culturelle) 1 cap BID PO Last administered on 20:27; Start 09/29/18 at 21:00 Glucose (Insta-Glucose) 15 gm STK-MED ONCE .ROUTE Last administered on 08:08; Start 09/30/18 at 08:08; Stop 09/30/18 at 08:10; Status DC Duloxetine HCl (Cymbalta) 60 mg QHS PO Last administered on 10/02/18at 20:28; Start 10/02/18 at 21:00 Active Scripts Active Reported Trileptal (Oxcarbazepine) 150 Mg Tablet 150 Mg PO BID@0900,1300 Zyprexa (Olanzapine) 5 Mg Tablet 5 Mg PO PRN Q2HR PRN dissolve in mouth. Max 20mg/24hrs Mirtazapine 15 Mg Tablet 7.5 Mg PO QHS Proctosol-Hc (Hydrocortisone) 28.35 Gm Cream..g. 1 Sam RC PRN Q24HRS PRN Vitamin C (Ascorbic Acid) 500 Mg Capsule 500 Mg PO DAILY Novolog Flexpen (Insulin Aspart) 100 Unit/1 Ml Insuln.pen 2-10 Units SQ TIDWMEALHC BS 200-250 2 units BS 251-300 4 units BS 301-350 8 units BS 351-400 10 units BS >400 CALL MD Watson (Duloxetine Hcl) 60 Mg Capsule.dr 60 Mg PO DAILY Famotidine 20 Mg Tablet 20 Mg PO DAILY Mag-Al Plus Xs Suspension (Mag Hydrox/Al Hydrox/Simeth) 30 Ml Oral.susp 15 Ml PO PRN AFTMEALHC PRN Robitussin Cough-Chest Dm Liq (Guaifenesin/Dextromethorphan) 237 Ml Liquid 10 Ml PO PRN Q4HRS PRN Percocet 10-325 Mg Tablet (Oxycodone Hcl/Acetaminophen) 1 Each Tablet 1 Tab PO PRN Q4HRS PRN Percocet 10-325 Mg Tablet (Oxycodone Hcl/Acetaminophen) 1 Each Tablet 1 Tab PO BID Ondansetron Hcl 4 Mg Tablet 4 Mg PO PRN Q4HRS PRN Nystatin 15 Gm Powder 1 Sam TP PRN TID PRN Nitrostat (Nitroglycerin) 0.4 Mg Tab.subl 0.4 Mg SL PRN Q5MIN PRN HOld for SBP less than or equal to 90mmHG. Call Provider for shest pain unrelieved by 1 sublingual nitro, may repeat x2 if chest pain persists. Melatonin 5 Mg Tablet (Melatonin/Pyridoxine) 1 Each Tablet 6 Mg PO QHS Loperamide (Loperamide Hcl) 2 Mg Tablet 2 Mg PO PRN Q4HRS PRN MDD 16mg Keppra (Levetiracetam) 500 Mg Tablet 500 Mg PO BID Ferrous Sulfate 325 Mg Tablet 325 Mg PO DAILY Neurontin (Gabapentin) 300 Mg Capsule 300 Mg PO BID Voltaren (Diclofenac Sodium) 100 Gm Gel..gram. 4 Sam TP PRN QID PRN Budesonide 0.5 Mg/2 Ml Ampul.neb 0.5 Mg NEB RTBID Dicyclomine Hcl 10 Mg Capsule 10 Mg PO PRN Q8HRS PRN Artificial Tears Eye Drops (Dextran 70/Hypromellose) 15 Ml Drops 1 Drop OU TID PRN Anusol-Hc (Hydrocortisone Acetate) 25 Mg Supp.rect 25 Mg RC PRN Q12HR PRN Norvasc (Amlodipine Besylate) 10 Mg Tablet 10 Mg PO DAILY Tylenol (Acetaminophen) 325 Mg Tablet 650 Mg PO PRN Q6HRS PRN Max acetaminophen dose os 4000mg/24hrs from all sources Albuterol Sulfate Neb Soln (Albuterol Sulfate) 2.5 Mg/3 Ml Vial.neb 2.5 Mg NEB PRN Q4HRS PRN Milk Of Magnesia (Magnesium Hydroxide) 400 Mg/5 Ml Oral.susp 2,400 Mg PO PRN QHS PRN Actos (Pioglitazone Hcl) 15 Mg Tablet 15 Mg PO DAILY I have reviewed the current psychotropics carefully including drug interactions. Risk benefit ratio favors no change other than as noted in my dictated progress note. Diagnosis: Problems: (1) Anxiety disorder (2) Impulse control disorder (3) Major depressive disorder, recurrent episode (4) Mild cognitive impairment BEA SAWANT MD Oct 02, 2018 22:58
--- NOTE | 2018-10-03 00:50 | NUR ---
Pt located in the dayroom at shift change. Pt drowsy and was taken to bed early. Compliant with whole medications. Pt stated that she had a great day and did " a little bit of everything."
[2018-10-03 06:25] VITALS: BP 135/80
[2018-10-03] MEDS: PIOGLITAZONE 15 MG TABLET. PO SCH (08:04)
[2018-10-03] MEDS: AMOXICILLIN 250 MG CAPSULE PO SCH ×3 (08:04→20:59)
[2018-10-03] MEDS: levETIRAcetam 500 MG TABLET PO SCH ×2 (08:05→20:59)
[2018-10-03] MEDS: ASCORBIC ACID 500 MG TABLET PO SCH (08:05)
[2018-10-03] MEDS: amLODIPine BESYLATE 10 MG TABLET PO SCH (08:05)
[2018-10-03] MEDS: FERROUS SULFATE 325 MG TABLET. PO SCH (08:05)
[2018-10-03] MEDS: OXcarbazepine 150 MG TABLET. PO SCH (08:05)
[2018-10-03] MEDS: FAMOTIDINE 20 MG TABLET PO SCH (08:05)
[2018-10-03] MEDS: LACTOBACILLUS RHAMNOSUS GG 1 CAPSULE. PO SCH ×2 (08:06→20:59)
[2018-10-03] MEDS: GABAPENTIN 300 MG CAPSULE. PO SCH ×2 (08:08→20:59)
[2018-10-03] MEDS: INSULIN LISPRO 300 UNITS/3 ML INSULN.PEN. SQ SCH ×4 (08:09→17:00)
[2018-10-03] MEDS: oxyCODONE/APAP 10/325 1 TAB TABLET PO SCH (09:00)
[2018-10-03] MEDS: BUDESONIDE 0.5 MG/2 ML NEBU NEB SCH ×2 (11:18→20:40)
[2018-10-03 16:25] VITALS: BP 126/78
--- NOTE | 2018-10-03 16:26 | NUR ---
Patient appears very tired today, this morning patient was up for breakfast and appeared very awake and alert, AM percocet held. By lunch time patient refused to get up and requested to sleep, insulin held. Spoke with Dr Mcguire and Dr Gregory in regards to increased tiredness, plan is to decrease melatonin and DC Percocet.
--- NOTE | 2018-10-03 19:00 | PDOC ---
Exam Note: Neal Note: Please also refer to the separate dictated note~for this date of service dictated separately.~Patient seen individually. Discussed the patient with Nursing staff reviewed the chart.~Reviewed interim history and current functioning. Reviewed vital signs,~Labs/ Radiology~and current medications noted below. Continue current treatment with the changes noted in the dictated addendum note Assessment: Vital Signs: Vital Signs Date Time Temp Pulse Resp B/P (MAP) Pulse Ox O2 Delivery O2 Flow Rate FiO2 10/03/18 16:25 98.7 91 20 126/78 (94) 98 Room Air I&O Intake and Output 10/03/18 07:01 Intake Total 1080 ml Balance 1080 ml Intake Oral 1080 ml # Bowel Movements 1 Labs: Laboratory Tests Test 10/02/18 19:01 10/03/18 07:06 10/03/18 11:47 10/03/18 16:36 Glucose (Fingerstick) 183 mg/dL (70-99) H 151 mg/dL (70-99) H 211 mg/dL (70-99) H 111 mg/dL (70-99) H Current Medications: Meds: Current Medications Acetaminophen (Tylenol) 650 mg PRN Q6HRS PRN PO PAIN / TEMP Last administered on 09/26/18at 12:57; Start 09/15/18 at 21:30 Albuterol Sulfate (Ventolin) 2.5 mg PRN Q4HRS PRN NEB Dyspnea; Start 09/15/18 at 21:30 Diclofenac Sodium (Voltaren) 4 sam PRN QID PRN TP R Knee Pain; Start 09/15/18 at 21:30 Dicyclomine HCl (Bentyl) 10 mg PRN Q8HRS PRN PO Bowel Cramps; Start 09/15/18 at 21:30 Ferrous Sulfate (Feosol) 325 mg DAILY PO Last administered on 10/03/18at 08:05 ; Start 09/16/18 at 09:00 Gabapentin (Neurontin) 300 mg BID PO Last administered on 10/03/18at 08:08; Start 09/16/18 at 09:00 Hydrocortisone (Proctosol-Hc) 1 sam PRN Q24HRS PRN RC hemorrhoids; Start at 21:30 Al Hydroxide/Mg Hydroxide (Mylanta Plus Xs) 15 ml PRN AFTMEALHC PRN PO DYSPEPSIA; Start 09/15/18 at 21:30 Magnesium Hydroxide (Milk Of Magnesia) 2,400 mg PRN QHS PRN PO CONSTIPATION; Start 09/15/18 at 21:30 Multi-Ingredient Ointment (Analgesic [place]) 1 sam PRN QID PRN TP MUSCLE PAIN; Start 09/15/18 at 21:30 Nitroglycerin (Nitrostat) 0.4 mg PRN Q5MIN PRN SL CHEST PAIN; Start 09/15/18 at 21:30 Nystatin (Nystop) 1 sam PRN TID PRN TP REDNESS; Start 09/15/18 at 21:30 Oxycodone/ Acetaminophen (Percocet 10/325) 1 tab BID PO Last administered on at 20:27; Start 09/16/18 at 09:00; Stop 10/03/18 at 15:03; Status DC Oxycodone/ Acetaminophen (Percocet 10/325) 1 tab PRN Q4HRS PRN PO PAIN Last administered on 09/26/18at 18:17; Start 09/15/18 at 21:30 Amlodipine Besylate (Norvasc) 10 mg DAILY PO Last administered on 10/03/18at 08 :05; Start 09/16/18 at 09:00 Ascorbic Acid (Vitamin C) 500 mg DAILY PO Last administered on 10/03/18at 08:05 ; Start 09/16/18 at 09:00 Non-Formulary Medication (Budesonide ) 0.5 mg RTBID NEB ; Start 09/16/18 at 08: 00; Stop 09/16/18 at 08:00; Status DC Artificial Tears (Artificial Tears) 1 drop PRN TID PRN OU DRY EYE; Start at 21:45 Duloxetine HCl (Cymbalta) 60 mg DAILY PO Last administered on 10/01/18at 07:40 ; Start 09/16/18 at 09:00; Stop 10/01/18 at 22:50; Status DC Famotidine (Pepcid) 20 mg DAILY PO Last administered on 10/03/18at 08:05; Start 09/15/18 at 09:00 Guaifenesin (Robitussin Dm) 10 ml PRN Q4HRS PRN PO COUGH; Start 09/15/18 at 21: 45 Non-Formulary Medication (Insulin Aspart (Novolog Flexpen)) 200-250 2units 251- ... TIDWMEALHC SQ ; Start 09/16/18 at 08:00; Status UNV Levetiracetam (Keppra) 500 mg BID PO Last administered on 10/03/18at 08:05; Start 09/16/18 at 09:00 Loperamide HCl (Imodium) 2 mg PRN Q4HRS PRN PO DIARRHEA; Start 09/15/18 at 21: 45 Melatonin 6 mg QHS PO Last administered on 10/02/18at 20:27; Start 09/16/18 at 21:00; Stop 10/03/18 at 14:25; Status DC Mirtazapine (Remeron) 7.5 mg QHS PO Last administered on 10/02/18at 20:27; Start 09/16/18 at 21:00 Ondansetron HCl (Zofran Odt) 4 mg PRN Q4HRS PRN PO NAUSEA/VOMITING; Start 09/15 at 21:45 Oxcarbazepine (Trileptal) 150 mg BID@0900,1300 PO Last administered on at 12:48; Start 09/16/18 at 09:00; Stop 09/27/18 at 16:40; Status DC Pioglitazone HCl (Actos) 15 mg DAILY PO Last administered on 10/03/18at 08:04; Start 09/16/18 at 09:00 Budesonide (Pulmicort) 0.5 mg RTBID NEB Last administered on 10/03/18at 11:18; Start 09/16/18 at 08:00 Insulin Human Lispro (HumaLOG) 0-5 UNITS TIDWMEALS SQ Last administered on at 12:18; Start 09/16/18 at 08:00; Stop 09/28/18 at 14:39; Status DC Insulin Glargine (Lantus) 10 units QHS SQ Last administered on 09/17/18at 19:49 ; Start 09/16/18 at 21:00; Stop 09/18/18 at 15:41; Status DC Vitamin D (Vitamin D3) 50,000 unit WEEKLY PO Last administered on 09/30/18at 07 :53; Start 09/16/18 at 16:15 Insulin Glargine (Lantus) 20 units QHS SQ Last administered on 09/27/18at 20:46 ; Start 09/18/18 at 21:00; Stop 09/28/18 at 14:37; Status DC Oxcarbazepine (Trileptal) 150 mg DAILY PO Last administered on 10/03/18at 08:05 ; Start 09/28/18 at 09:00 Oxcarbazepine (Trileptal) 300 mg 1300 PO Last administered on 10/03/18at 12:46 ; Start 09/28/18 at 13:00 Insulin Glargine (Lantus) 15 units QHS SQ Last administered on 10/02/18at 20:37 ; Start 09/28/18 at 21:00 Insulin Human Lispro (HumaLOG) 0-9 UNITS TIDWMEALS SQ Last administered on at 08:09; Start 09/28/18 at 17:00 Dextrose 12.5 gm PRN Q15MIN PRN IV SEE COMMENTS; Start 09/28/18 at 14:45 Amoxicillin (Amoxil) 250 mg [id number] PO Last administered on 10/03/18at 12:46; Start 09/29/18 at 21:00 Lactobacillus Rhamnosus (Culturelle) 1 cap BID PO Last administered on at 08:06; Start 09/29/18 at 21:00 Glucose (Insta-Glucose) 15 gm STK-MED ONCE .ROUTE Last administered on at 08:08; Start 09/30/18 at 08:08; Stop 09/30/18 at 08:10; Status DC Duloxetine HCl (Cymbalta) 60 mg QHS PO Last administered on 10/02/18at 20:28; Start 10/02/18 at 21:00 Melatonin 3 mg QHS PO ; Start 10/03/18 at 21:00 Active Scripts Active Reported Trileptal (Oxcarbazepine) 150 Mg Tablet 150 Mg PO BID@0900,1300 Zyprexa (Olanzapine) 5 Mg Tablet 5 Mg PO PRN Q2HR PRN dissolve in mouth. Max 20mg/24hrs Mirtazapine 15 Mg Tablet 7.5 Mg PO QHS Proctosol-Hc (Hydrocortisone) 28.35 Gm Cream..g. 1 Sam RC PRN Q24HRS PRN Vitamin C (Ascorbic Acid) 500 Mg Capsule 500 Mg PO DAILY Novolog Flexpen (Insulin Aspart) 100 Unit/1 Ml Insuln.pen 2-10 Units SQ TIDWMEALHC BS 200-250 2 units BS 251-300 4 units BS 301-350 8 units BS 351-400 10 units BS >400 CALL Cymbalta (Duloxetine Hcl) 60 Mg Capsule.dr 60 Mg PO DAILY Famotidine 20 Mg Tablet 20 Mg PO DAILY Mag-Al Plus Xs Suspension (Mag Hydrox/Al Hydrox/Simeth) 30 Ml Oral.susp 15 Ml PO PRN AFTMEALHC PRN Robitussin Cough-Chest Dm Liq (Guaifenesin/Dextromethorphan) 237 Ml Liquid 10 Ml PO PRN Q4HRS PRN Percocet 10-325 Mg Tablet (Oxycodone Hcl/Acetaminophen) 1 Each Tablet 1 Tab PO PRN Q4HRS PRN Percocet 10-325 Mg Tablet (Oxycodone Hcl/Acetaminophen) 1 Each Tablet 1 Tab PO BID Ondansetron Hcl 4 Mg Tablet 4 Mg PO PRN Q4HRS PRN Nystatin 15 Gm Powder 1 Sam TP PRN TID PRN Nitrostat (Nitroglycerin) 0.4 Mg Tab.subl 0.4 Mg SL PRN Q5MIN PRN HOld for SBP less than or equal to 90mmHG. Call Provider for shest pain unrelieved by 1 sublingual nitro, may repeat x2 if chest pain persists. Melatonin 5 Mg Tablet (Melatonin/Pyridoxine) 1 Each Tablet 6 Mg PO QHS Loperamide (Loperamide Hcl) 2 Mg Tablet 2 Mg PO PRN Q4HRS PRN MDD 16mg Keppra (Levetiracetam) 500 Mg Tablet 500 Mg PO BID Ferrous Sulfate 325 Mg Tablet 325 Mg PO DAILY Neurontin (Gabapentin) 300 Mg Capsule 300 Mg PO BID Voltaren (Diclofenac Sodium) 100 Gm Gel..gram. 4 Sam TP PRN QID PRN Budesonide 0.5 Mg/2 Ml Ampul.neb 0.5 Mg NEB RTBID Dicyclomine Hcl 10 Mg Capsule 10 Mg PO PRN Q8HRS PRN Artificial Tears Eye Drops (Dextran 70/Hypromellose) 15 Ml Drops 1 Drop OU TID PRN Anusol-Hc (Hydrocortisone Acetate) 25 Mg Supp.rect 25 Mg RC PRN Q12HR PRN Norvasc (Amlodipine Besylate) 10 Mg Tablet 10 Mg PO DAILY Tylenol (Acetaminophen) 325 Mg Tablet 650 Mg PO PRN Q6HRS PRN Max acetaminophen dose os 4000mg/24hrs from all sources Albuterol Sulfate Neb Soln (Albuterol Sulfate) 2.5 Mg/3 Ml Vial.neb 2.5 Mg NEB PRN Q4HRS PRN Milk Of Magnesia (Magnesium Hydroxide) 400 Mg/5 Ml Oral.susp 2,400 Mg PO PRN QHS PRN Actos (Pioglitazone Hcl) 15 Mg Tablet 15 Mg PO DAILY I have reviewed the current psychotropics carefully including drug interactions. Risk benefit ratio favors no change other than as noted in my dictated progress note. Diagnosis: Problems: (1) Anxiety disorder (2) Impulse control disorder (3) Major depressive disorder, recurrent episode (4) Mild cognitive impairment BEA SAWANT MD Oct 03, 2018 19:00
[2018-10-03] MEDS: MELATONIN 3 MG TABLET PO SCH (20:58)
[2018-10-03] MEDS: DULoxetine HCL 60 MG CAPSULE.DR PO SCH (20:59)
[2018-10-03] MEDS: MIRTAZAPINE 7.5 MG TABLET. PO SCH (20:59)
[2018-10-03] MEDS: INSULIN GLARGINE 300 UNITS/3 ML INSULN.PEN. SQ SCH (21:04)
--- NOTE | 2018-10-03 22:32 | NUR ---
Patient more alert this evening than the other nights working with her. The percocet was d/c'd at hs as well as melatonin was decreased at hs which is helping patient to remain alert and awake during the day. Will continue to monitor patient.
--- NOTE | 2018-10-04 00:24 | NUR ---
Behavior Intervention Response and Plan: BIRP Note: Behavior: Assumed Care of patient, patient located in Day Room at shift change. Patient exhibited the following behavior Calm, Cooperative, Appropriate. Brief assessment on rounds of vital signs, medication needs, lab studies, and pain. Treatment plan problems . Intervention: Patient assessed and the following interventions initiated safety checks 15 Minute Checks Personal Alarm in place , Cognitive Assessment , Head to toe Assessment. Response: After interactions and interventions patient responded in the following manner, Calm , Compliant ,Cooperative. Continue to assess behaviors and condition will continue to monitor throughout the shift as needed. Patient educated on ADL's, and hand hygiene. Plan: Continue to monitor Master Treatment Plan for patient's progress toward short term goals of Medication Compliance, Improved Mood, custodial goals to return to previous living setting vs placement. Continue to assess patient for changes in above assessment. Monitor for medication needs, pain, and safety concerns. Hourly rounding performed to ensure safe environment.
[2018-10-04 06:15] VITALS: BP 168/76
[2018-10-04] MEDS: FERROUS SULFATE 325 MG TABLET. PO SCH (07:42)
[2018-10-04] MEDS: GABAPENTIN 300 MG CAPSULE. PO SCH ×2 (07:42→18:53)
[2018-10-04] MEDS: OXcarbazepine 150 MG TABLET. PO SCH (07:42)
[2018-10-04] MEDS: AMOXICILLIN 250 MG CAPSULE PO SCH ×3 (07:42→18:53)
[2018-10-04] MEDS: ASCORBIC ACID 500 MG TABLET PO SCH (07:42)
[2018-10-04] MEDS: levETIRAcetam 500 MG TABLET PO SCH ×2 (07:42→18:53)
[2018-10-04] MEDS: FAMOTIDINE 20 MG TABLET PO SCH (07:42)
[2018-10-04] MEDS: INSULIN LISPRO 300 UNITS/3 ML INSULN.PEN. SQ SCH ×3 (07:43→17:00)
[2018-10-04] MEDS: PIOGLITAZONE 15 MG TABLET. PO SCH (07:43)
[2018-10-04] MEDS: amLODIPine BESYLATE 10 MG TABLET PO SCH (07:43)
[2018-10-04] MEDS: LACTOBACILLUS RHAMNOSUS GG 1 CAPSULE. PO SCH ×2 (07:51→18:53)
--- NOTE | 2018-10-04 09:44 | NUR ---
Behavior Intervention Response and Plan: BIRP Note: Behavior: Assumed Care of patient, patient located in Dining Room at shift change. Patient exhibited the following behavior Disorganized, Non Compliant, Irritable. Brief assessment on rounds of vital signs, medication needs, lab studies, and pain. Treatment plan problems . Intervention: Patient assessed and the following interventions initiated safety checks 15 Minute Checks Cognitive Assessment , Head to toe Assessment , Medications. Response: After interactions and interventions patient responded in the following manner, Disorganized , Calm ,Non Compliant. Continue to assess behaviors and condition will continue to monitor throughout the shift as needed. Patient educated on ADL's, and hand hygiene. 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 Continue to assess patient for changes in above assessment. Monitor for medication needs, pain, and safety concerns. Hourly rounding performed to ensure safe environment.
[2018-10-04] MEDS: BUDESONIDE 0.5 MG/2 ML NEBU NEB SCH ×2 (10:19→20:31)
[2018-10-04] MEDS: oxyCODONE/APAP 10/325 1 TAB TABLET PO PRN (15:00)
[2018-10-04 16:45] VITALS: BP 166/90
--- NOTE | 2018-10-04 17:26 | NUR ---
pt up for meals. has been more awake. c/o pain oxycodone given. has been compliant with meds.
--- NOTE | 2018-10-04 18:21 | PN ---
DATE: 10/03/2018 PSYCHIATRIC PROGRESS NOTE This late entry 10/03/2018 covers elements not covered in my initial note. SUBJECTIVE: Met with the patient in the evening. The patient slept 7-1/2 hours previous night. She has been somewhat sedated and we will defer to Dr. Mcguire to reduce her narcotics to compensate for this. We will also reduce melatonin from 6 mg at bedtime down to 3 mg at bedtime. REVIEW OF SYSTEMS: Ambulation is impaired, in wheelchair. No CV, , pulmonary, eye system symptoms on review. MENTAL STATUS EXAM: Oriented to herself and situation. Speech moderate latency, often responses monosyllabic. Abstraction fair, computation impaired, language function intact. Mood and affect withdrawn. LABORATORY DATA: Reviewed. IMPRESSION: Bipolar 1 disorder, mixed with psychotic features; cognitive disorder, unspecified. PLAN: No change other than reducing and narcotics to help with daytime sedation. Reduce the melatonin as noted. BEA SAWANT MD DR: MARK/daphne JOB#: [id number] / [id number]
--- NOTE | 2018-10-04 18:52 | PN ---
DATE: 10/02/2018 This late entry, 10/02/2018, covers elements not covered in my initial note. SUBJECTIVE: I met with the patient in the evening. The patient slept 7-1/4 hours previous night. She has appeared a little more confused. States her appetite is poor. We will check a CT head. REVIEW OF SYSTEMS: No CV, , pulmonary, eye system symptoms on review. Ambulation impaired, in wheelchair. MENTAL STATUS EXAM: Oriented to herself and situation. Speech moderate latency, often responses monosyllabic. Abstraction fair, computation impaired. Mood and affect withdrawn. No suicidal ideation. LABORATORY DATA: Reviewed. IMPRESSION: Bipolar 1 disorder, mixed with psychotic features; cognitive disorder, unspecified. PLAN: Continue psychotropics from initial note. Await CT head results. MAN Farrah SAWANT MD DR: MARK/daphne JOB#: [id number] / [id number]
[2018-10-04] MEDS: DULoxetine HCL 60 MG CAPSULE.DR PO SCH (18:53)
[2018-10-04] MEDS: MIRTAZAPINE 7.5 MG TABLET. PO SCH (18:53)
[2018-10-04] MEDS: MELATONIN 3 MG TABLET PO SCH (18:53)
--- NOTE | 2018-10-04 19:07 | PDOC ---
Exam Note: Neal Note: Please also refer to the separate dictated note~for this date of service dictated separately.~Patient seen individually. Discussed the patient with Nursing staff reviewed the chart.~Reviewed interim history and current functioning. Reviewed vital signs,~Labs/ Radiology~and current medications noted below. Continue current treatment with the changes noted in the dictated addendum note Assessment: Vital Signs: Vital Signs Date Time Temp Pulse Resp B/P (MAP) Pulse Ox O2 Delivery O2 Flow Rate FiO2 10/04/18 16:45 98.4 70 20 166/90 (115) 96 10/04/18 10:19 Room Air I&O Intake and Output 10/04/18 07:01 Intake Total 720 ml Balance 720 ml Intake Oral 720 ml # Voids 1 # Bowel Movements 1 Labs: Laboratory Tests Test 10/03/18 19:13 10/04/18 07:23 10/04/18 11:33 10/04/18 17:52 Glucose (Fingerstick) 163 mg/dL (70-99) H 97 mg/dL (70-99) 201 mg/dL (70-99) H 332 mg/dL (70-99) H Current Medications: Meds: Current Medications Acetaminophen (Tylenol) 650 mg PRN Q6HRS PRN PO PAIN / TEMP Last administered on 09/26/18at 12:57; Start 09/15/18 at 21:30 Albuterol Sulfate (Ventolin) 2.5 mg PRN Q4HRS PRN NEB Dyspnea; Start 09/15/18 at 21:30 Diclofenac Sodium (Voltaren) 4 sam PRN QID PRN TP R Knee Pain; Start 09/15/18 at 21:30 Dicyclomine HCl (Bentyl) 10 mg PRN Q8HRS PRN PO Bowel Cramps; Start 09/15/18 at 21:30 Ferrous Sulfate (Feosol) 325 mg DAILY PO Last administered on 10/04/18at 07:42 ; Start 09/16/18 at 09:00 Gabapentin (Neurontin) 300 mg BID PO Last administered on 10/04/18at 18:53; Start 09/16/18 at 09:00 Hydrocortisone (Proctosol-Hc) 1 sam PRN Q24HRS PRN RC hemorrhoids; Start at 21:30 Al Hydroxide/Mg Hydroxide (Mylanta Plus Xs) 15 ml PRN AFTMEALHC PRN PO DYSPEPSIA; Start 09/15/18 at 21:30 Magnesium Hydroxide (Milk Of Magnesia) 2,400 mg PRN QHS PRN PO CONSTIPATION; Start 09/15/18 at 21:30 Multi-Ingredient Ointment (Analgesic [place]) 1 sam PRN QID PRN TP MUSCLE PAIN; Start 09/15/18 at 21:30 Nitroglycerin (Nitrostat) 0.4 mg PRN Q5MIN PRN SL CHEST PAIN; Start 09/15/18 at 21:30 Nystatin (Nystop) 1 sam PRN TID PRN TP REDNESS; Start 09/15/18 at 21:30 Oxycodone/ Acetaminophen (Percocet 10/325) 1 tab BID PO Last administered on at 20:27; Start 09/16/18 at 09:00; Stop 10/03/18 at 15:03; Status DC Oxycodone/ Acetaminophen (Percocet 10/325) 1 tab PRN Q4HRS PRN PO PAIN Last administered on 10/04/18at 15:00; Start 09/15/18 at 21:30 Amlodipine Besylate (Norvasc) 10 mg DAILY PO Last administered on 10/04/18at 07 :43; Start 09/16/18 at 09:00 Ascorbic Acid (Vitamin C) 500 mg DAILY PO Last administered on 10/04/18at 07:42 ; Start 09/16/18 at 09:00 Non-Formulary Medication (Budesonide ) 0.5 mg RTBID NEB ; Start 09/16/18 at 08: 00; Stop 09/16/18 at 08:00; Status DC Artificial Tears (Artificial Tears) 1 drop PRN TID PRN OU DRY EYE; Start at 21:45 Duloxetine HCl (Cymbalta) 60 mg DAILY PO Last administered on 10/01/18at 07:40 ; Start 09/16/18 at 09:00; Stop 10/01/18 at 22:50; Status DC Famotidine (Pepcid) 20 mg DAILY PO Last administered on 10/04/18at 07:42; Start 09/15/18 at 09:00 Guaifenesin (Robitussin Dm) 10 ml PRN Q4HRS PRN PO COUGH; Start 09/15/18 at 21: 45 Non-Formulary Medication (Insulin Aspart (Novolog Flexpen)) 200-250 2units 251- ... TIDWMEALHC SQ ; Start 09/16/18 at 08:00; Status UNV Levetiracetam (Keppra) 500 mg BID PO Last administered on 10/04/18at 18:53; Start 09/16/18 at 09:00 Loperamide HCl (Imodium) 2 mg PRN Q4HRS PRN PO DIARRHEA; Start 09/15/18 at 21: 45 Melatonin 6 mg QHS PO Last administered on 10/02/18at 20:27; Start 09/16/18 at 21:00; Stop 10/03/18 at 14:25; Status DC Mirtazapine (Remeron) 7.5 mg QHS PO Last administered on 10/04/18at 18:53; Start 09/16/18 at 21:00 Ondansetron HCl (Zofran Odt) 4 mg PRN Q4HRS PRN PO NAUSEA/VOMITING; Start 09/15 at 21:45 Oxcarbazepine (Trileptal) 150 mg BID@0900,1300 PO Last administered on at 12:48; Start 09/16/18 at 09:00; Stop 09/27/18 at 16:40; Status DC Pioglitazone HCl (Actos) 15 mg DAILY PO Last administered on 10/04/18at 07:43; Start 09/16/18 at 09:00 Budesonide (Pulmicort) 0.5 mg RTBID NEB Last administered on 10/04/18at 10:19; Start 09/16/18 at 08:00 Insulin Human Lispro (HumaLOG) 0-5 UNITS TIDWMEALS SQ Last administered on at 12:18; Start 09/16/18 at 08:00; Stop 09/28/18 at 14:39; Status DC Insulin Glargine (Lantus) 10 units QHS SQ Last administered on 09/17/18at 19:49 ; Start 09/16/18 at 21:00; Stop 09/18/18 at 15:41; Status DC Vitamin D (Vitamin D3) 50,000 unit WEEKLY PO Last administered on 09/30/18 07 :53; Start 09/16/18 at 16:15 Insulin Glargine (Lantus) 20 units QHS SQ Last administered on 09/27/18at 20:46 ; Start 09/18/18 at 21:00; Stop 09/28/18 at 14:37; Status DC Oxcarbazepine (Trileptal) 150 mg DAILY PO Last administered on 10/04/18 07:42 ; Start 09/28/18 at 09:00 Oxcarbazepine (Trileptal) 300 mg 1300 PO Last administered on 10/04/18 13:00 ; Start 09/28/18 at 13:00 Insulin Glargine (Lantus) 15 units QHS SQ Last administered on 10/03/18 21:04 ; Start 09/28/18 at 21:00 Insulin Human Lispro (HumaLOG) 0-9 UNITS TIDWMEALS SQ Last administered on 17:00; Start 09/28/18 at 17:00 Dextrose 12.5 gm PRN Q15MIN PRN IV SEE COMMENTS; Start 09/28/18 at 14:45 Amoxicillin (Amoxil) 250 mg [id number] PO Last administered on 10/04/18 18:53; Start 09/29/18 at 21:00 Lactobacillus Rhamnosus (Culturelle) 1 cap BID PO Last administered on 18:53; Start 09/29/18 at 21:00 Glucose (Insta-Glucose) 15 gm STK-MED ONCE .ROUTE Last administered on at 08:08; Start 09/30/18 at 08:08; Stop 09/30/18 at 08:10; Status DC Duloxetine HCl (Cymbalta) 60 mg QHS PO Last administered on 10/04/18 18:53; Start 10/02/18 at 21:00 Melatonin 3 mg QHS PO Last administered on 10/04/18 18:53; Start 10/03/18 at 21:00 Active Scripts Active Reported Trileptal (Oxcarbazepine) 150 Mg Tablet 150 Mg PO BID@0900,1300 Zyprexa (Olanzapine) 5 Mg Tablet 5 Mg PO PRN Q2HR PRN dissolve in mouth. Max 20mg/24hrs Mirtazapine 15 Mg Tablet 7.5 Mg PO QHS Proctosol-Hc (Hydrocortisone) 28.35 Gm Cream..g. 1 Sam RC PRN Q24HRS PRN Vitamin C (Ascorbic Acid) 500 Mg Capsule 500 Mg PO DAILY Novolog Flexpen (Insulin Aspart) 100 Unit/1 Ml Insuln.pen 2-10 Units SQ TIDWMEALHC BS 200-250 2 units BS 251-300 4 units BS 301-350 8 units BS 351-400 10 units BS >400 CALL Cymbalta (Duloxetine Hcl) 60 Mg Capsule.dr 60 Mg PO DAILY Famotidine 20 Mg Tablet 20 Mg PO DAILY Mag-Al Plus Xs Suspension (Mag Hydrox/Al Hydrox/Simeth) 30 Ml Oral.susp 15 Ml PO PRN AFTMEALHC PRN Robitussin Cough-Chest Dm Liq (Guaifenesin/Dextromethorphan) 237 Ml Liquid 10 Ml PO PRN Q4HRS PRN Percocet 10-325 Mg Tablet (Oxycodone Hcl/Acetaminophen) 1 Each Tablet 1 Tab PO PRN Q4HRS PRN Percocet 10-325 Mg Tablet (Oxycodone Hcl/Acetaminophen) 1 Each Tablet 1 Tab PO BID Ondansetron Hcl 4 Mg Tablet 4 Mg PO PRN Q4HRS PRN Nystatin 15 Gm Powder 1 Sam TP PRN TID PRN Nitrostat (Nitroglycerin) 0.4 Mg Tab.subl 0.4 Mg SL PRN Q5MIN PRN HOld for SBP less than or equal to 90mmHG. Call Provider for shest pain unrelieved by 1 sublingual nitro, may repeat x2 if chest pain persists. Melatonin 5 Mg Tablet (Melatonin/Pyridoxine) 1 Each Tablet 6 Mg PO QHS Loperamide (Loperamide Hcl) 2 Mg Tablet 2 Mg PO PRN Q4HRS PRN MDD 16mg Keppra (Levetiracetam) 500 Mg Tablet 500 Mg PO BID Ferrous Sulfate 325 Mg Tablet 325 Mg PO DAILY Neurontin (Gabapentin) 300 Mg Capsule 300 Mg PO BID Voltaren (Diclofenac Sodium) 100 Gm Gel..gram. 4 Sam TP PRN QID PRN Budesonide 0.5 Mg/2 Ml Ampul.neb 0.5 Mg NEB RTBID Dicyclomine Hcl 10 Mg Capsule 10 Mg PO PRN Q8HRS PRN Artificial Tears Eye Drops (Dextran 70/Hypromellose) 15 Ml Drops 1 Drop OU TID PRN Anusol-Hc (Hydrocortisone Acetate) 25 Mg Supp.rect 25 Mg RC PRN Q12HR PRN Norvasc (Amlodipine Besylate) 10 Mg Tablet 10 Mg PO DAILY Tylenol (Acetaminophen) 325 Mg Tablet 650 Mg PO PRN Q6HRS PRN Max acetaminophen dose os 4000mg/24hrs from all sources Albuterol Sulfate Neb Soln (Albuterol Sulfate) 2.5 Mg/3 Ml Vial.neb 2.5 Mg NEB PRN Q4HRS PRN Milk Of Magnesia (Magnesium Hydroxide) 400 Mg/5 Ml Oral.susp 2,400 Mg PO PRN QHS PRN Actos (Pioglitazone Hcl) 15 Mg Tablet 15 Mg PO DAILY I have reviewed the current psychotropics carefully including drug interactions. Risk benefit ratio favors no change other than as noted in my dictated progress note. Diagnosis: Problems: (1) Anxiety disorder (2) Impulse control disorder (3) Major depressive disorder, recurrent episode (4) Mild cognitive impairment BEA SAWANT MD Oct 04, 2018 19:06
[2018-10-04] MEDS: INSULIN GLARGINE 300 UNITS/3 ML INSULN.PEN. SQ SCH (20:48)
--- NOTE | 2018-10-04 22:06 | NUR ---
Behavior Intervention Response and Plan: BIRP Note: Behavior: Assumed Care of patient, patient located in Day Room at shift change. Patient exhibited the following behavior Calm, Cooperative, Compliant. Brief assessment on rounds of vital signs, medication needs, lab studies, and pain. Treatment plan problems . Intervention: Patient assessed and the following interventions initiated safety checks 15 Minute Checks Personal Alarm in place , Cognitive Assessment , Head to toe Assessment. Response: After interactions and interventions patient responded in the following manner, Calm , Cooperative ,Compliant. Continue to assess behaviors and condition will continue to monitor throughout the shift as needed. Patient educated on ADL's, and hand hygiene. 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 Continue to assess patient for changes in above assessment. Monitor for medication needs, pain, and safety concerns. Hourly rounding performed to ensure safe environment.
[2018-10-05 05:47] VITALS: BP 147/82
[2018-10-05] MEDS: INSULIN LISPRO 300 UNITS/3 ML INSULN.PEN. SQ SCH ×3 (08:00→17:33)
[2018-10-05] MEDS: ASCORBIC ACID 500 MG TABLET PO SCH (08:17)
[2018-10-05] MEDS: levETIRAcetam 500 MG TABLET PO SCH ×2 (08:17→19:54)
[2018-10-05] MEDS: LACTOBACILLUS RHAMNOSUS GG 1 CAPSULE. PO SCH ×2 (08:18→19:54)
[2018-10-05] MEDS: amLODIPine BESYLATE 10 MG TABLET PO SCH (08:18)
[2018-10-05] MEDS: OXcarbazepine 150 MG TABLET. PO SCH (08:18)
[2018-10-05] MEDS: GABAPENTIN 300 MG CAPSULE. PO SCH ×2 (08:18→19:54)
[2018-10-05] MEDS: PIOGLITAZONE 15 MG TABLET. PO SCH (08:18)
[2018-10-05] MEDS: FERROUS SULFATE 325 MG TABLET. PO SCH (08:18)
[2018-10-05] MEDS: AMOXICILLIN 250 MG CAPSULE PO SCH ×3 (08:18→19:54)
[2018-10-05] MEDS: FAMOTIDINE 20 MG TABLET PO SCH (08:18)
--- NOTE | 2018-10-05 08:35 | NUR ---
Behavior Intervention Response and Plan: BIRP Note: Behavior: Assumed Care of patient, patient located in Day Room at shift change. Patient exhibited the following behavior Restless, Disorganized, Compulsive. Brief assessment on rounds of vital signs, medication needs, lab studies, and pain. Treatment plan problems #1 & 2. Intervention: Patient assessed and the following interventions initiated safety checks 15 Minute Checks Cognitive Assessment , Head to toe Assessment , Medications. Response: After interactions and interventions patient responded in the following manner, Interactive , Disorganized ,Compliant. Continue to assess behaviors and condition will continue to monitor throughout the shift as needed. Patient educated on ADL's, and hand hygiene. Plan: Continue to monitor Master Treatment Plan for patient's progress toward short term goals of Medication Compliance, No harm To self/ others, senior living goals to return to previous living setting vs placement. Continue to assess patient for changes in above assessment. Monitor for medication needs, pain, and safety concerns. Hourly rounding performed to ensure safe environment.
[2018-10-05] MEDS: BUDESONIDE 0.5 MG/2 ML NEBU NEB SCH ×2 (10:19→19:56)
--- NOTE | 2018-10-05 10:20 | NUR ---
GURPREET contacted Florence, social science instructor at [facility] to discuss patient discharge. Florence has faxed pt. information to facilities in [place] and is waiting to hear back. GURPREET left msg. for pt. daughter, Lashae, to discuss discharge and date change of treatment team to 10/07/2018.
[2018-10-05] MEDS: oxyCODONE/APAP 10/325 1 TAB TABLET PO PRN (12:35)
[2018-10-05 16:52] VITALS: BP 154/89
[2018-10-05] MEDS: MIRTAZAPINE 7.5 MG TABLET. PO SCH (19:54)
[2018-10-05] MEDS: DULoxetine HCL 60 MG CAPSULE.DR PO SCH (19:54)
[2018-10-05] MEDS: MELATONIN 3 MG TABLET PO SCH (19:54)
[2018-10-05] MEDS: INSULIN GLARGINE 300 UNITS/3 ML INSULN.PEN. SQ SCH (19:55)
--- NOTE | 2018-10-05 22:52 | PDOC ---
Exam Note: Neal Note: Please also refer to the separate dictated note~for this date of service dictated separately.~Patient seen individually. Discussed the patient with Nursing staff reviewed the chart.~Reviewed interim history and current functioning. Reviewed vital signs,~Labs/ Radiology~and current medications noted below. Continue current treatment with the changes noted in the dictated addendum note Assessment: Vital Signs: Vital Signs Date Time Temp Pulse Resp B/P (MAP) Pulse Ox O2 Delivery O2 Flow Rate FiO2 10/05/18 19:40 98 Room Air 10/05/18 16:52 97.9 75 18 154/89 (110) I&O Intake and Output 10/05/18 07:01 Intake Total 1320 ml Balance 1320 ml Intake Oral 1320 ml # Bowel Movements 1 Labs: Laboratory Tests Test 10/05/18 07:11 10/05/18 11:10 10/05/18 16:45 10/05/18 19:03 Glucose (Fingerstick) 145 mg/dL (70-99) H 320 mg/dL (70-99) H 167 mg/dL (70-99) H 256 mg/dL (70-99) H Current Medications: Meds: Current Medications Acetaminophen (Tylenol) 650 mg PRN Q6HRS PRN PO PAIN / TEMP Last administered on 09/26/18at 12:57; Start 09/15/18 at 21:30 Albuterol Sulfate (Ventolin) 2.5 mg PRN Q4HRS PRN NEB Dyspnea; Start 09/15/18 at 21:30 Diclofenac Sodium (Voltaren) 4 sam PRN QID PRN TP R Knee Pain; Start 09/15/18 at 21:30 Dicyclomine HCl (Bentyl) 10 mg PRN Q8HRS PRN PO Bowel Cramps; Start 09/15/18 at 21:30 Ferrous Sulfate (Feosol) 325 mg DAILY PO Last administered on 10/05/18at 08:18 ; Start 09/16/18 at 09:00 Gabapentin (Neurontin) 300 mg BID PO Last administered on 10/05/18at 19:54; Start 09/16/18 at 09:00 Hydrocortisone (Proctosol-Hc) 1 sam PRN Q24HRS PRN RC hemorrhoids; Start at 21:30 Al Hydroxide/Mg Hydroxide (Mylanta Plus Xs) 15 ml PRN AFTMEALHC PRN PO DYSPEPSIA; Start 09/15/18 at 21:30 Magnesium Hydroxide (Milk Of Magnesia) 2,400 mg PRN QHS PRN PO CONSTIPATION; Start 09/15/18 at 21:30 Multi-Ingredient Ointment (Analgesic [place]) 1 sam PRN QID PRN TP MUSCLE PAIN; Start 09/15/18 at 21:30 Nitroglycerin (Nitrostat) 0.4 mg PRN Q5MIN PRN SL CHEST PAIN; Start 09/15/18 at 21:30 Nystatin (Nystop) 1 sam PRN TID PRN TP REDNESS; Start 09/15/18 at 21:30 Oxycodone/ Acetaminophen (Percocet 10/325) 1 tab BID PO Last administered on at 20:27; Start 09/16/18 at 09:00; Stop 10/03/18 at 15:03; Status DC Oxycodone/ Acetaminophen (Percocet 10/325) 1 tab PRN Q4HRS PRN PO PAIN Last administered on 10/05/18at 12:35; Start 09/15/18 at 21:30 Amlodipine Besylate (Norvasc) 10 mg DAILY PO Last administered on 10/05/18at 08 :18; Start 09/16/18 at 09:00 Ascorbic Acid (Vitamin C) 500 mg DAILY PO Last administered on 10/05/18at 08:17 ; Start 09/16/18 at 09:00 Non-Formulary Medication (Budesonide ) 0.5 mg RTBID NEB ; Start 09/16/18 at 08: 00; Stop 09/16/18 at 08:00; Status DC Artificial Tears (Artificial Tears) 1 drop PRN TID PRN OU DRY EYE; Start at 21:45 Duloxetine HCl (Cymbalta) 60 mg DAILY PO Last administered on 10/01/18at 07:40 ; Start 09/16/18 at 09:00; Stop 10/01/18 at 22:50; Status DC Famotidine (Pepcid) 20 mg DAILY PO Last administered on 10/05/18at 08:18; Start 09/15/18 at 09:00 Guaifenesin (Robitussin Dm) 10 ml PRN Q4HRS PRN PO COUGH; Start 09/15/18 at 21: 45 Non-Formulary Medication (Insulin Aspart (Novolog Flexpen)) 200-250 2units 251- ... TIDWMEALHC SQ ; Start 09/16/18 at 08:00; Status UNV Levetiracetam (Keppra) 500 mg BID PO Last administered on 10/05/18at 19:54; Start 09/16/18 at 09:00 Loperamide HCl (Imodium) 2 mg PRN Q4HRS PRN PO DIARRHEA; Start 09/15/18 at 21: 45 Melatonin 6 mg QHS PO Last administered on 10/02/18at 20:27; Start 09/16/18 at 21:00; Stop 10/03/18 at 14:25; Status DC Mirtazapine (Remeron) 7.5 mg QHS PO Last administered on 10/05/18at 19:54; Start 09/16/18 at 21:00 Ondansetron HCl (Zofran Odt) 4 mg PRN Q4HRS PRN PO NAUSEA/VOMITING; Start 09/15 at 21:45 Oxcarbazepine (Trileptal) 150 mg BID@0900,1300 PO Last administered on at 12:48; Start 09/16/18 at 09:00; Stop 09/27/18 at 16:40; Status DC Pioglitazone HCl (Actos) 15 mg DAILY PO Last administered on 10/05/18at 08:18; Start 09/16/18 at 09:00 Budesonide (Pulmicort) 0.5 mg RTBID NEB Last administered on 10/05/18at 19:56; Start 09/16/18 at 08:00 Insulin Human Lispro (HumaLOG) 0-5 UNITS TIDWMEALS SQ Last administered on at 12:18; Start 09/16/18 at 08:00; Stop 09/28/18 at 14:39; Status DC Insulin Glargine (Lantus) 10 units QHS SQ Last administered on 09/17/18at 19:49 ; Start 09/16/18 at 21:00; Stop 09/18/18 at 15:41; Status DC Vitamin D (Vitamin D3) 50,000 unit WEEKLY PO Last administered on 09/30/18 07 :53; Start 09/16/18 at 16:15 Insulin Glargine (Lantus) 20 units QHS SQ Last administered on 09/27/18at 20:46 ; Start 09/18/18 at 21:00; Stop 09/28/18 at 14:37; Status DC Oxcarbazepine (Trileptal) 150 mg DAILY PO Last administered on 10/05/18 08:18 ; Start 09/28/18 at 09:00 Oxcarbazepine (Trileptal) 300 mg 1300 PO Last administered on 10/05/18 13:43 ; Start 09/28/18 at 13:00 Insulin Glargine (Lantus) 15 units QHS SQ Last administered on 10/05/18 19:55 ; Start 09/28/18 at 21:00 Insulin Human Lispro (HumaLOG) 0-9 UNITS TIDWMEALS SQ Last administered on 17:33; Start 09/28/18 at 17:00 Dextrose 12.5 gm PRN Q15MIN PRN IV SEE COMMENTS; Start 09/28/18 at 14:45 Amoxicillin (Amoxil) 250 mg [id number] PO Last administered on 10/05/18 19:54; Start 09/29/18 at 21:00; Stop 10/07/18 at 20:59 Lactobacillus Rhamnosus (Culturelle) 1 cap BID PO Last administered on 19:54; Start 09/29/18 at 21:00 Glucose (Insta-Glucose) 15 gm STK-MED ONCE .ROUTE Last administered on at 08:08; Start 09/30/18 at 08:08; Stop 09/30/18 at 08:10; Status DC Duloxetine HCl (Cymbalta) 60 mg QHS PO Last administered on 10/05/18 19:54; Start 10/02/18 at 21:00 Melatonin 3 mg QHS PO Last administered on 10/05/18 19:54; Start 10/03/18 at 21:00 Active Scripts Active Reported Trileptal (Oxcarbazepine) 150 Mg Tablet 150 Mg PO BID@0900,1300 Zyprexa (Olanzapine) 5 Mg Tablet 5 Mg PO PRN Q2HR PRN dissolve in mouth. Max 20mg/24hrs Mirtazapine 15 Mg Tablet 7.5 Mg PO QHS Proctosol-Hc (Hydrocortisone) 28.35 Gm Cream..g. 1 Sam RC PRN Q24HRS PRN Vitamin C (Ascorbic Acid) 500 Mg Capsule 500 Mg PO DAILY Novolog Flexpen (Insulin Aspart) 100 Unit/1 Ml Insuln.pen 2-10 Units SQ TIDWMEALHC BS 200-250 2 units BS 251-300 4 units BS 301-350 8 units BS 351-400 10 units BS >400 CALL MD [place] (Duloxetine Hcl) 60 Mg Capsule.dr 60 Mg PO DAILY Famotidine 20 Mg Tablet 20 Mg PO DAILY Mag-Al Plus Xs Suspension (Mag Hydrox/Al Hydrox/Simeth) 30 Ml Oral.susp 15 Ml PO PRN AFTMEALHC PRN Robitussin Cough-Chest Dm Liq (Guaifenesin/Dextromethorphan) 237 Ml Liquid 10 Ml PO PRN Q4HRS PRN Percocet 10-325 Mg Tablet (Oxycodone Hcl/Acetaminophen) 1 Each Tablet 1 Tab PO PRN Q4HRS PRN Percocet 10-325 Mg Tablet (Oxycodone Hcl/Acetaminophen) 1 Each Tablet 1 Tab PO BID Ondansetron Hcl 4 Mg Tablet 4 Mg PO PRN Q4HRS PRN Nystatin 15 Gm Powder 1 Sam TP PRN TID PRN Nitrostat (Nitroglycerin) 0.4 Mg Tab.subl 0.4 Mg SL PRN Q5MIN PRN HOld for SBP less than or equal to 90mmHG. Call Provider for shest pain unrelieved by 1 sublingual nitro, may repeat x2 if chest pain persists. Melatonin 5 Mg Tablet (Melatonin/Pyridoxine) 1 Each Tablet 6 Mg PO QHS Loperamide (Loperamide Hcl) 2 Mg Tablet 2 Mg PO PRN Q4HRS PRN MDD 16mg Keppra (Levetiracetam) 500 Mg Tablet 500 Mg PO BID Ferrous Sulfate 325 Mg Tablet 325 Mg PO DAILY Neurontin (Gabapentin) 300 Mg Capsule 300 Mg PO BID Voltaren (Diclofenac Sodium) 100 Gm Gel..gram. 4 Sam TP PRN QID PRN Budesonide 0.5 Mg/2 Ml Ampul.neb 0.5 Mg NEB RTBID Dicyclomine Hcl 10 Mg Capsule 10 Mg PO PRN Q8HRS PRN Artificial Tears Eye Drops (Dextran 70/Hypromellose) 15 Ml Drops 1 Drop OU TID PRN Anusol-Hc (Hydrocortisone Acetate) 25 Mg Supp.rect 25 Mg RC PRN Q12HR PRN Norvasc (Amlodipine Besylate) 10 Mg Tablet 10 Mg PO DAILY Tylenol (Acetaminophen) 325 Mg Tablet 650 Mg PO PRN Q6HRS PRN Max acetaminophen dose os 4000mg/24hrs from all sources Albuterol Sulfate Neb Soln (Albuterol Sulfate) 2.5 Mg/3 Ml Vial.neb 2.5 Mg NEB PRN Q4HRS PRN Milk Of Magnesia (Magnesium Hydroxide) 400 Mg/5 Ml Oral.susp 2,400 Mg PO PRN QHS PRN Actos (Pioglitazone Hcl) 15 Mg Tablet 15 Mg PO DAILY I have reviewed the current psychotropics carefully including drug interactions. Risk benefit ratio favors no change other than as noted in my dictated progress note. Diagnosis: Problems: (1) Anxiety disorder (2) Impulse control disorder (3) Major depressive disorder, recurrent episode (4) Mild cognitive impairment BEA SAWANT MD Oct 05, 2018 22:52
--- NOTE | 2018-10-05 23:08 | NUR ---
Pt awake, alert and sitting calmly in dayroom at shift change. Pleasant spirits. Compliant with whole medications and assessment. No behaviors noted.
--- NOTE | 2018-10-05 23:27 | PN ---
DATE: 10/04/2018 PSYCHIATRIC PROGRESS NOTE This late entry 10/04/2018 covers elements not covered in my initial note. SUBJECTIVE: I met with the patient in the evening. The patient slept 7 hours previous night. She has been more awake and alert during the day per nursing report. REVIEW OF SYSTEMS: Ambulation impaired, in wheelchair. No CV, , pulmonary, eye, ENT system symptoms on review. MENTAL STATUS EXAM: Oriented to herself and situation. Speech moderate latency, often responses monosyllabic. Abstraction fair, computation impaired, language function intact, attention span short. Mood and affect remain somewhat withdrawn. LABORATORY DATA: Reviewed. IMPRESSION: Unchanged from initial note. PLAN: No change from initial note. BEA SAWANT MD DR: MARK/daphne JOB#: [id number] / [id number]
[2018-10-06 05:56] VITALS: BP 165/73
[2018-10-06 07:27] LABS: ALBUMIN 2.9 g/dL (3.4-5.0); ALBUMIN/GLOBULIN RATIO 0.7 (1.0-1.7); CALCIUM 9.4 mg/dL (8.5-10.1); CREATININE 0.9 mg/dL (0.6-1.0); GFR 74.5; POTASSIUM 4.5 mmol/L (3.5-5.1); TOTAL BILIRUBIN 0.2 mg/dL (0.2-1.0); TOTAL PROTEIN 7.1 g/dL (6.4-8.2)
[2018-10-06] MEDS: INSULIN LISPRO 300 UNITS/3 ML INSULN.PEN. SQ SCH ×3 (07:56→17:05)
[2018-10-06] MEDS: amLODIPine BESYLATE 10 MG TABLET PO SCH (08:00)
[2018-10-06] MEDS: OXcarbazepine 150 MG TABLET. PO SCH (08:00)
[2018-10-06] MEDS: FERROUS SULFATE 325 MG TABLET. PO SCH (08:00)
[2018-10-06] MEDS: ASCORBIC ACID 500 MG TABLET PO SCH (08:00)
[2018-10-06] MEDS: AMOXICILLIN 250 MG CAPSULE PO SCH ×3 (08:01→20:50)
[2018-10-06] MEDS: FAMOTIDINE 20 MG TABLET PO SCH (08:01)
[2018-10-06] MEDS: levETIRAcetam 500 MG TABLET PO SCH ×2 (08:01→20:50)
[2018-10-06] MEDS: PIOGLITAZONE 15 MG TABLET. PO SCH (08:01)
[2018-10-06] MEDS: LACTOBACILLUS RHAMNOSUS GG 1 CAPSULE. PO SCH ×2 (08:01→20:50)
[2018-10-06] MEDS: GABAPENTIN 300 MG CAPSULE. PO SCH ×2 (08:02→20:50)
--- NOTE | 2018-10-06 08:30 | NUR ---
Behavior Intervention Response and Plan: BIRP Note: Behavior: Assumed Care of patient, patient located in Day Room at shift change. Patient exhibited the following behavior Restless, Disorganized, Compulsive. Brief assessment on rounds of vital signs, medication needs, lab studies, and pain. Treatment plan problems #1 & 2. Intervention: Patient assessed and the following interventions initiated safety checks 15 Minute Checks Cognitive Assessment , Head to toe Assessment , Medications. Response: After interactions and interventions patient responded in the following manner, Interactive , Disorganized ,Compliant. Continue to assess behaviors and condition will continue to monitor throughout the shift as needed. Patient educated on ADL's, and hand hygiene. Plan: Continue to monitor Master Treatment Plan for patient's progress toward short term goals of Medication Compliance, No harm To self/ others, intermediate goals to return to previous living setting vs placement. Continue to assess patient for changes in above assessment. Monitor for medication needs, pain, and safety concerns. Hourly rounding performed to ensure safe environment.
--- NOTE | 2018-10-06 08:36 | NUR ---
GURPREET spoke to pt. daughter, Lashae, to let her know three places in [place] would not accept pt. [facility] in [place] has agreed to admit pt. and daughter is fine with pt. discharging to this facility. GURPREET will work on pt. discharge. GURPREET spoke to Florence, social work nurse at [facility] to let her know pt. would be discharging to [facility]. [facility] will transport pt. belongings to this location upon pt. discharge.
[2018-10-06] MEDS: oxyCODONE/APAP 10/325 1 TAB TABLET PO PRN (08:50)
--- NOTE | 2018-10-06 08:59 | NUR ---
WEEKLY ACTIVITY THERAPY NOTE Date of Admission: 09/15/2018 Date of AT Assessment: 09/18/2018 Goal aimed: To increase stress management and volunteer work. Initial Goal: Pt. will participate in five activity groups per week. Weekly progress towards goal: did not achieve Group participation level: minimal Behaviors observed: Pt. participated in three groups this week and slept through the rest; Pt. seems to enjoy singing along to music and some art groups; Pt. benefits from prompting and some assistance to participate in groups Plan: no change to goal
[2018-10-06] MEDS: BUDESONIDE 0.5 MG/2 ML NEBU NEB SCH ×2 (11:04→20:22)
--- NOTE | 2018-10-06 11:10 | NUR ---
[facility] Social Work Discharge Planning Form Patient Name KAYLAN THOMSON Admit Date: 09/15/2018 DISCHARGE PLAN Discharge Destination: [facility] Care Assessment: NA Level II Assessment: NA Transportation: [facility] to pickler helper on 10/07/2018 at 11:00 am. Special Instructions/Notes: Please fax discharge note and medication list to [phone]. DISCHARGE TO FACILITY Facility: [facility] Address: [address] [place] [address] Contact Name: Kenzie Patiño - Emergency Technician & Admissions PCP: Dr. Elia Vera Psychiatrist: None
[2018-10-06 16:14] VITALS: BP 148/82
[2018-10-06] MEDS: DULoxetine HCL 60 MG CAPSULE.DR PO SCH (20:50)
[2018-10-06] MEDS: MIRTAZAPINE 7.5 MG TABLET. PO SCH (20:50)
[2018-10-06] MEDS: MELATONIN 3 MG TABLET PO SCH (20:50)
[2018-10-06] MEDS: INSULIN GLARGINE 300 UNITS/3 ML INSULN.PEN. SQ SCH (20:53)
--- NOTE | 2018-10-06 22:49 | PDOC ---
Exam Note: Neal Note: Please also refer to the separate dictated note~for this date of service dictated separately.~Patient seen individually. Discussed the patient with Nursing staff reviewed the chart.~Reviewed interim history and current functioning. Reviewed vital signs,~Labs/ Radiology~and current medications noted below. Continue current treatment with the changes noted in the dictated addendum note Assessment: Vital Signs: Vital Signs Date Time Temp Pulse Resp B/P (MAP) Pulse Ox O2 Delivery O2 Flow Rate FiO2 10/06/18 20:22 99 Room Air 10/06/18 16:14 96.5 76 18 148/82 (104) I&O Intake and Output 10/06/18 07:01 Intake Total 960 ml Balance 960 ml Intake Oral 960 ml Labs: Laboratory Tests Test 10/06/18 06:42 10/06/18 07:27 10/06/18 12:16 10/06/18 16:47 Sodium Level 142 mmol/L (136-145) Potassium Level 4.5 mmol/L (3.5-5.1) Chloride Level 104 mmol/L (98-107) Carbon Dioxide Level 27 mmol/L (21-32) Anion Gap 11 (6-14) Blood Urea Nitrogen 17 mg/dL (7-20) Creatinine 0.9 mg/dL (0.6-1.0) Estimated GFR (Cockcroft-Gault) 74.5 BUN/Creatinine Ratio 19 (6-20) Glucose Level 144 mg/dL (70-99) H Calcium Level 9.4 mg/dL (8.5-10.1) Total Bilirubin 0.2 mg/dL (0.2-1.0) Aspartate Amino Transferase (AST) 16 U/L (15-37) Alanine Aminotransferase (ALT) 27 U/L (14-59) Alkaline Phosphatase 105 U/L (46-116) Total Protein 7.1 g/dL (6.4-8.2) Albumin 2.9 g/dL (3.4-5.0) L Albumin/Globulin Ratio 0.7 (1.0-1.7) L Glucose (Fingerstick) 137 mg/dL (70-99) H 205 mg/dL (70-99) H 255 mg/dL (70-99) H Test 10/06/18 19:09 Glucose (Fingerstick) 218 mg/dL (70-99) H Current Medications: Meds: Current Medications Acetaminophen (Tylenol) 650 mg PRN Q6HRS PRN PO PAIN / TEMP Last administered on 09/26/18at 12:57; Start 09/15/18 at 21:30 Albuterol Sulfate (Ventolin) 2.5 mg PRN Q4HRS PRN NEB Dyspnea; Start 09/15/18 at 21:30 Diclofenac Sodium (Voltaren) 4 sam PRN QID PRN TP R Knee Pain; Start 09/15/18 at 21:30 Dicyclomine HCl (Bentyl) 10 mg PRN Q8HRS PRN PO Bowel Cramps; Start 09/15/18 at 21:30 Ferrous Sulfate (Feosol) 325 mg DAILY PO Last administered on 10/06/18at 08:00 ; Start 09/16/18 at 09:00 Gabapentin (Neurontin) 300 mg BID PO Last administered on 10/06/18at 20:50; Start 09/16/18 at 09:00 Hydrocortisone (Proctosol-Hc) 1 sam PRN Q24HRS PRN RC hemorrhoids; Start at 21:30 Al Hydroxide/Mg Hydroxide (Mylanta Plus Xs) 15 ml PRN AFTMEALHC PRN PO DYSPEPSIA; Start 09/15/18 at 21:30 Magnesium Hydroxide (Milk Of Magnesia) 2,400 mg PRN QHS PRN PO CONSTIPATION; Start 09/15/18 at 21:30 Multi-Ingredient Ointment (Analgesic [place]) 1 sam PRN QID PRN TP MUSCLE PAIN; Start 09/15/18 at 21:30 Nitroglycerin (Nitrostat) 0.4 mg PRN Q5MIN PRN SL CHEST PAIN; Start 09/15/18 at 21:30 Nystatin (Nystop) 1 sam PRN TID PRN TP REDNESS; Start 09/15/18 at 21:30 Oxycodone/ Acetaminophen (Percocet 10/325) 1 tab BID PO Last administered on at 20:27; Start 09/16/18 at 09:00; Stop 10/03/18 at 15:03; Status DC Oxycodone/ Acetaminophen (Percocet 10/325) 1 tab PRN Q4HRS PRN PO PAIN Last administered on 10/06/18 08:50; Start 09/15/18 at 21:30 Amlodipine Besylate (Norvasc) 10 mg DAILY PO Last administered on 10/06/18at 08 :00; Start 09/16/18 at 09:00 Ascorbic Acid (Vitamin C) 500 mg DAILY PO Last administered on 10/06/18at 08:00 ; Start 09/16/18 at 09:00 Non-Formulary Medication (Budesonide ) 0.5 mg RTBID NEB ; Start 09/16/18 at 08: 00; Stop 09/16/18 at 08:00; Status DC Artificial Tears (Artificial Tears) 1 drop PRN TID PRN OU DRY EYE; Start at 21:45 Duloxetine HCl (Cymbalta) 60 mg DAILY PO Last administered on 10/01/18at 07:40 ; Start 09/16/18 at 09:00; Stop 10/01/18 at 22:50; Status DC Famotidine (Pepcid) 20 mg DAILY PO Last administered on 10/06/18at 08:01; Start 09/15/18 at 09:00 Guaifenesin (Robitussin Dm) 10 ml PRN Q4HRS PRN PO COUGH; Start 09/15/18 at 21: 45 Non-Formulary Medication (Insulin Aspart (Novolog Flexpen)) 200-250 2units 251- ... TIDWMEALHC SQ ; Start 09/16/18 at 08:00; Status UNV Levetiracetam (Keppra) 500 mg BID PO Last administered on 10/06/18at 20:50; Start 09/16/18 at 09:00 Loperamide HCl (Imodium) 2 mg PRN Q4HRS PRN PO DIARRHEA; Start 09/15/18 at 21: 45 Melatonin 6 mg QHS PO Last administered on 10/02/18 20:27; Start 09/16/18 at 21:00; Stop 10/03/18 at 14:25; Status DC Mirtazapine (Remeron) 7.5 mg QHS PO Last administered on 10/06/18at 20:50; Start 09/16/18 at 21:00 Ondansetron HCl (Zofran Odt) 4 mg PRN Q4HRS PRN PO NAUSEA/VOMITING; Start 09/15 at 21:45 Oxcarbazepine (Trileptal) 150 mg BID@0900,1300 PO Last administered on at 12:48; Start 09/16/18 at 09:00; Stop 09/27/18 at 16:40; Status DC Pioglitazone HCl (Actos) 15 mg DAILY PO Last administered on 10/06/18at 08:01; Start 09/16/18 at 09:00 Budesonide (Pulmicort) 0.5 mg RTBID NEB Last administered on 10/06/18at 20:22; Start 09/16/18 at 08:00 Insulin Human Lispro (HumaLOG) 0-5 UNITS TIDWMEALS SQ Last administered on at 12:18; Start 09/16/18 at 08:00; Stop 09/28/18 at 14:39; Status DC Insulin Glargine (Lantus) 10 units QHS SQ Last administered on 09/17/18at 19:49 ; Start 09/16/18 at 21:00; Stop 09/18/18 at 15:41; Status DC Vitamin D (Vitamin D3) 50,000 unit WEEKLY PO Last administered on 09/30/18at 07 :53; Start 09/16/18 at 16:15 Insulin Glargine (Lantus) 20 units QHS SQ Last administered on 09/27/18at 20:46 ; Start 09/18/18 at 21:00; Stop 09/28/18 at 14:37; Status DC Oxcarbazepine (Trileptal) 150 mg DAILY PO Last administered on 10/06/18at 08:00 ; Start 09/28/18 at 09:00 Oxcarbazepine (Trileptal) 300 mg 1300 PO Last administered on 10/06/18at 13:27 ; Start 09/28/18 at 13:00 Insulin Glargine (Lantus) 15 units QHS SQ Last administered on 10/06/18at 20:53 ; Start 09/28/18 at 21:00 Insulin Human Lispro (HumaLOG) 0-9 UNITS TIDWMEALS SQ Last administered on at 17:05; Start 09/28/18 at 17:00 Dextrose 12.5 gm PRN Q15MIN PRN IV SEE COMMENTS; Start 09/28/18 at 14:45 Amoxicillin (Amoxil) 250 mg [id number] PO Last administered on 10/06/18at 20:50; Start 09/29/18 at 21:00; Stop 10/07/18 at 20:59 Lactobacillus Rhamnosus (Culturelle) 1 cap BID PO Last administered on at 20:50; Start 09/29/18 at 21:00 Glucose (Insta-Glucose) 15 gm STK-MED ONCE .ROUTE Last administered on at 08:08; Start 09/30/18 at 08:08; Stop 09/30/18 at 08:10; Status DC Duloxetine HCl (Cymbalta) 60 mg QHS PO Last administered on 10/06/18at 20:50; Start 10/02/18 at 21:00 Melatonin 3 mg QHS PO Last administered on 10/06/18at 20:50; Start 10/03/18 at 21:00 Active Scripts Active Reported Trileptal (Oxcarbazepine) 150 Mg Tablet 150 Mg PO BID@0900,1300 Zyprexa (Olanzapine) 5 Mg Tablet 5 Mg PO PRN Q2HR PRN dissolve in mouth. Max 20mg/24hrs Mirtazapine 15 Mg Tablet 7.5 Mg PO QHS Proctosol-Hc (Hydrocortisone) 28.35 Gm Cream..g. 1 Sam RC PRN Q24HRS PRN Vitamin C (Ascorbic Acid) 500 Mg Capsule 500 Mg PO DAILY Novolog Flexpen (Insulin Aspart) 100 Unit/1 Ml Insuln.pen 2-10 Units SQ TIDWMEALHC BS 200-250 2 units BS 251-300 4 units BS 301-350 8 units BS 351-400 10 units BS >400 CALL Cymbalta (Duloxetine Hcl) 60 Mg Capsule.dr 60 Mg PO DAILY Famotidine 20 Mg Tablet 20 Mg PO DAILY Mag-Al Plus Xs Suspension (Mag Hydrox/Al Hydrox/Simeth) 30 Ml Oral.susp 15 Ml PO PRN AFTMEALHC PRN Robitussin Cough-Chest Dm Liq (Guaifenesin/Dextromethorphan) 237 Ml Liquid 10 Ml PO PRN Q4HRS PRN Percocet 10-325 Mg Tablet (Oxycodone Hcl/Acetaminophen) 1 Each Tablet 1 Tab PO PRN Q4HRS PRN Percocet 10-325 Mg Tablet (Oxycodone Hcl/Acetaminophen) 1 Each Tablet 1 Tab PO BID Ondansetron Hcl 4 Mg Tablet 4 Mg PO PRN Q4HRS PRN Nystatin 15 Gm Powder 1 Sam TP PRN TID PRN Nitrostat (Nitroglycerin) 0.4 Mg Tab.subl 0.4 Mg SL PRN Q5MIN PRN HOld for SBP less than or equal to 90mmHG. Call Provider for shest pain unrelieved by 1 sublingual nitro, may repeat x2 if chest pain persists. Melatonin 5 Mg Tablet (Melatonin/Pyridoxine) 1 Each Tablet 6 Mg PO QHS Loperamide (Loperamide Hcl) 2 Mg Tablet 2 Mg PO PRN Q4HRS PRN MDD 16mg Keppra (Levetiracetam) 500 Mg Tablet 500 Mg PO BID Ferrous Sulfate 325 Mg Tablet 325 Mg PO DAILY Neurontin (Gabapentin) 300 Mg Capsule 300 Mg PO BID Voltaren (Diclofenac Sodium) 100 Gm Gel..gram. 4 Sam TP PRN QID PRN Budesonide 0.5 Mg/2 Ml Ampul.neb 0.5 Mg NEB RTBID Dicyclomine Hcl 10 Mg Capsule 10 Mg PO PRN Q8HRS PRN Artificial Tears Eye Drops (Dextran 70/Hypromellose) 15 Ml Drops 1 Drop OU TID PRN Anusol-Hc (Hydrocortisone Acetate) 25 Mg Supp.rect 25 Mg RC PRN Q12HR PRN Norvasc (Amlodipine Besylate) 10 Mg Tablet 10 Mg PO DAILY Tylenol (Acetaminophen) 325 Mg Tablet 650 Mg PO PRN Q6HRS PRN Max acetaminophen dose os 4000mg/24hrs from all sources Albuterol Sulfate Neb Soln (Albuterol Sulfate) 2.5 Mg/3 Ml Vial.neb 2.5 Mg NEB PRN Q4HRS PRN Milk Of Magnesia (Magnesium Hydroxide) 400 Mg/5 Ml Oral.susp 2,400 Mg PO PRN QHS PRN Actos (Pioglitazone Hcl) 15 Mg Tablet 15 Mg PO DAILY I have reviewed the current psychotropics carefully including drug interactions. Risk benefit ratio favors no change other than as noted in my dictated progress note. Diagnosis: Problems: (1) Anxiety disorder (2) Impulse control disorder (3) Major depressive disorder, recurrent episode (4) Mild cognitive impairment BEA SAWANT MD Oct 06, 2018 22:49
--- NOTE | 2018-10-06 23:38 | NUR ---
Nursing Note The patient was located in her room for her interview and medication pass. The patient was drowsy but was compliant with her medications and was appropriate during her interview. The patient is currently located in her room in bed sleeping.
[2018-10-07] MEDS ORDERED: CHOL500021 PO (00:20)
[2018-10-07] MEDS ORDERED: INSU100I13 SQ (00:36)
[2018-10-07] MEDS ORDERED: LACT1CAP21 PO (00:38)
[2018-10-07] MEDS ORDERED: OXCA300T3 PO (00:47)
[2018-10-07] MEDS ORDERED: MELA3TAB2 PO (00:49)
[2018-10-07 06:09] VITALS: BP 149/78
[2018-10-07] MEDS ORDERED: AMOX-260 PO (07:29)
[2018-10-07] MEDS ORDERED: DEXT1DRO7 OU (07:51)
[2018-10-07] MEDS ORDERED: POLY15DR20 OU (07:55)
[2018-10-07] MEDS: INSULIN LISPRO 300 UNITS/3 ML INSULN.PEN. SQ SCH ×2 (08:00→12:45)
--- NOTE | 2018-10-07 08:13 | PDOC ---
Exam Note: Neal Note: S/O: This is a late entry of 10/05/2018. This note covers elements not covered in my initial note. The patient was seen on rounds in the evening of . The patient slept seven three quarter hours previous night. Overall , she has complained of some back pain and leg pain. We will defer to Dr. Mcguire and she is on Percocet for this. ROS: Ambulation impaired in wheelchair. No CV, , pulmonary, eye, ENT system symptoms on review. She is not very verbal. MSE: Oriented to herself and situation. Speech moderate latency. Often response is monosyllabic. Abstraction fair. Computation impaired. Language function intact. Attention span short. Mood and affect withdrawn. She does appear psychotic at times, but less-so than before. Labs: Reviewed. Imp: Bipolar I disorder mixed with psychotic features. Cognitive disorder unspecified versus major neurocognitive disorder Alzheimer, vascular with delusion and depression. Rest unchanged. Plan: No change from initial note. Assessment: Vital Signs: Vital Signs Date Time Temp Pulse Resp B/P (MAP) Pulse Ox O2 Delivery O2 Flow Rate FiO2 10/07/18 06:09 98.2 81 20 149/78 (101) 98 10/06/18 20:22 Room Air I&O Intake and Output 10/07/18 07:01 Intake Total 960 ml Balance 960 ml Intake Oral 960 ml Labs: Laboratory Tests Test 10/06/18 12:16 10/06/18 16:47 10/06/18 19:09 10/07/18 07:14 Glucose (Fingerstick) 205 mg/dL (70-99) H 255 mg/dL (70-99) H 218 mg/dL (70-99) H 67 mg/dL (70-99) L Current Medications: Meds: Current Medications Acetaminophen (Tylenol) 650 mg PRN Q6HRS PRN PO PAIN / TEMP Last administered on 09/26/18at 12:57; Start 09/15/18 at 21:30 Albuterol Sulfate (Ventolin) 2.5 mg PRN Q4HRS PRN NEB Dyspnea; Start 09/15/18 at 21:30 Diclofenac Sodium (Voltaren) 4 sam PRN QID PRN TP R Knee Pain; Start 09/15/18 at 21:30 Dicyclomine HCl (Bentyl) 10 mg PRN Q8HRS PRN PO Bowel Cramps; Start 09/15/18 at 21:30 Ferrous Sulfate (Feosol) 325 mg DAILY PO Last administered on 10/06/18at 08:00 ; Start 09/16/18 at 09:00 Gabapentin (Neurontin) 300 mg BID PO Last administered on 10/06/18at 20:50; Start 09/16/18 at 09:00 Hydrocortisone (Proctosol-Hc) 1 sam PRN Q24HRS PRN RC hemorrhoids; Start at 21:30 Al Hydroxide/Mg Hydroxide (Mylanta Plus Xs) 15 ml PRN AFTMEALHC PRN PO DYSPEPSIA; Start 09/15/18 at 21:30 Magnesium Hydroxide (Milk Of Magnesia) 2,400 mg PRN QHS PRN PO CONSTIPATION; Start 09/15/18 at 21:30 Multi-Ingredient Ointment (Analgesic [place]) 1 sam PRN QID PRN TP MUSCLE PAIN; Start 09/15/18 at 21:30 Nitroglycerin (Nitrostat) 0.4 mg PRN Q5MIN PRN SL CHEST PAIN; Start 09/15/18 at 21:30 Nystatin (Nystop) 1 sam PRN TID PRN TP REDNESS; Start 09/15/18 at 21:30 Oxycodone/ Acetaminophen (Percocet 10/325) 1 tab BID PO Last administered on at 20:27; Start 09/16/18 at 09:00; Stop 10/03/18 at 15:03; Status DC Oxycodone/ Acetaminophen (Percocet 10/325) 1 tab PRN Q4HRS PRN PO PAIN Last administered on 10/06/18at 08:50; Start 09/15/18 at 21:30 Amlodipine Besylate (Norvasc) 10 mg DAILY PO Last administered on 10/06/18at 08 :00; Start 09/16/18 at 09:00 Ascorbic Acid (Vitamin C) 500 mg DAILY PO Last administered on 10/06/18at 08:00 ; Start 09/16/18 at 09:00 Non-Formulary Medication (Budesonide ) 0.5 mg RTBID NEB ; Start 09/16/18 at 08: 00; Stop 09/16/18 at 08:00; Status DC Artificial Tears (Artificial Tears) 1 drop PRN TID PRN OU DRY EYE; Start at 21:45 Duloxetine HCl (Cymbalta) 60 mg DAILY PO Last administered on 10/01/18at 07:40 ; Start 09/16/18 at 09:00; Stop 10/01/18 at 22:50; Status DC Famotidine (Pepcid) 20 mg DAILY PO Last administered on 10/06/18at 08:01; Start 09/15/18 at 09:00 Guaifenesin (Robitussin Dm) 10 ml PRN Q4HRS PRN PO COUGH; Start 09/15/18 at 21: 45 Non-Formulary Medication (Insulin Aspart (Novolog Flexpen)) 200-250 2units 251- ... TIDWMEALHC SQ ; Start 09/16/18 at 08:00; Status UNV Levetiracetam (Keppra) 500 mg BID PO Last administered on 10/06/18at 20:50; Start 09/16/18 at 09:00 Loperamide HCl (Imodium) 2 mg PRN Q4HRS PRN PO DIARRHEA; Start 09/15/18 at 21: 45 Melatonin 6 mg QHS PO Last administered on 10/02/18at 20:27; Start 09/16/18 at 21:00; Stop 10/03/18 at 14:25; Status DC Mirtazapine (Remeron) 7.5 mg QHS PO Last administered on 10/06/18at 20:50; Start 09/16/18 at 21:00 Ondansetron HCl (Zofran Odt) 4 mg PRN Q4HRS PRN PO NAUSEA/VOMITING; Start 09/15 at 21:45 Oxcarbazepine (Trileptal) 150 mg BID@0900,1300 PO Last administered on at 12:48; Start 09/16/18 at 09:00; Stop 09/27/18 at 16:40; Status DC Pioglitazone HCl (Actos) 15 mg DAILY PO Last administered on 10/06/18at 08:01; Start 09/16/18 at 09:00 Budesonide (Pulmicort) 0.5 mg RTBID NEB Last administered on 10/06/18 20:22; Start 09/16/18 at 08:00 Insulin Human Lispro (HumaLOG) 0-5 UNITS TIDWMEALS SQ Last administered on at 12:18; Start 09/16/18 at 08:00; Stop 09/28/18 at 14:39; Status DC Insulin Glargine (Lantus) 10 units QHS SQ Last administered on 09/17/18at 19:49 ; Start 09/16/18 at 21:00; Stop 09/18/18 at 15:41; Status DC Vitamin D (Vitamin D3) 50,000 unit WEEKLY PO Last administered on 09/30/18 07 :53; Start 09/16/18 at 16:15 Insulin Glargine (Lantus) 20 units QHS SQ Last administered on 09/27/18at 20:46 ; Start 09/18/18 at 21:00; Stop 09/28/18 at 14:37; Status DC Oxcarbazepine (Trileptal) 150 mg DAILY PO Last administered on 10/06/18at 08:00 ; Start 09/28/18 at 09:00 Oxcarbazepine (Trileptal) 300 mg 1300 PO Last administered on 10/06/18at 13:27 ; Start 09/28/18 at 13:00 Insulin Glargine (Lantus) 15 units QHS SQ Last administered on 10/06/18at 20:53 ; Start 09/28/18 at 21:00 Insulin Human Lispro (HumaLOG) 0-9 UNITS TIDWMEALS SQ Last administered on at 17:05; Start 09/28/18 at 17:00 Dextrose 12.5 gm PRN Q15MIN PRN IV SEE COMMENTS; Start 09/28/18 at 14:45 Amoxicillin (Amoxil) 250 mg RFQ320 PO Last administered on 10/06/18at 20:50; Start 09/29/18 at 21:00; Stop 10/07/18 at 20:59 Lactobacillus Rhamnosus (Culturelle) 1 cap BID PO Last administered on at 20:50; Start 09/29/18 at 21:00 Glucose (Insta-Glucose) 15 gm STK-MED ONCE .ROUTE Last administered on at 08:08; Start 09/30/18 at 08:08; Stop 09/30/18 at 08:10; Status DC Duloxetine HCl (Cymbalta) 60 mg QHS PO Last administered on 10/06/18at 20:50; Start 10/02/18 at 21:00 Melatonin 3 mg QHS PO Last administered on 10/06/18at 20:50; Start 10/03/18 at 21:00 Active Scripts Active Reported Polyvinyl Alcohol 15 Ml Drops 1 Drop OU PRN TID PRN Amoxicillin 250 Mg Capsule 250 Mg PO [id number] Trileptal (Oxcarbazepine) 300 Mg Tablet 300 Mg PO 1300 Culturelle (Lactobacillus Rhamnosus Gg) 1 Each Capsule 1 Each PO BID Lantus Solostar (Insulin Glargine,Hum.rec.anlog) 100 Unit/1 Ml Insuln.pen 15 Unit SQ QHS D3-50 (Cholecalciferol (Vitamin D3)) 50,000 Unit Capsule 50,000 Unit PO WEEKLY Trileptal (Oxcarbazepine) 150 Mg Tablet 150 Mg PO BID@0900,1300 Zyprexa (Olanzapine) 5 Mg Tablet 5 Mg PO PRN Q2HR PRN dissolve in mouth. Max 20mg/24hrs Mirtazapine 15 Mg Tablet 7.5 Mg PO QHS Analgesic [place] (Methyl Salicylate/Menthol) 28 Gm Oint...g. 1 Gm TP PRN QID PRN Proctosol-Hc (Hydrocortisone) 28.35 Gm Cream..g. 1 Sam RC PRN Q24HRS PRN Vitamin C (Ascorbic Acid) 500 Mg Capsule 500 Mg PO DAILY Novolog Flexpen (Insulin Aspart) 100 Unit/1 Ml Insuln.pen 2-10 Units SQ TIDWMEALHC BS 200-250 2 units BS 251-300 4 units BS 301-350 8 units BS 351-400 10 units BS >400 CALL Cyjuliaalta (Duloxetine Hcl) 60 Mg Capsule. 60 Mg PO DAILY Famotidine 20 Mg Tablet 20 Mg PO DAILY Mag-Al Plus Xs Suspension (Mag Hydrox/Al Hydrox/Simeth) 30 Ml Oral.susp 15 Ml PO PRN AFTMEALHC PRN Robitussin Cough-Chest Dm Liq (Guaifenesin/Dextromethorphan) 237 Ml Liquid 10 Ml PO PRN Q4HRS PRN Percocet 10-325 Mg Tablet (Oxycodone Hcl/Acetaminophen) 1 Each Tablet 1 Tab PO PRN Q4HRS PRN Percocet 10-325 Mg Tablet (Oxycodone Hcl/Acetaminophen) 1 Each Tablet 1 Tab PO BID Ondansetron Hcl 4 Mg Tablet 4 Mg PO PRN Q4HRS PRN Nystatin 15 Gm Powder 1 Sam TP PRN TID PRN Nitrostat (Nitroglycerin) 0.4 Mg Tab.subl 0.4 Mg SL PRN Q5MIN PRN HOld for SBP less than or equal to 90mmHG. Call Provider for shest pain unrelieved by 1 sublingual nitro, may repeat x2 if chest pain persists. Melatonin 5 Mg Tablet (Melatonin/Pyridoxine) 1 Each Tablet 6 Mg PO QHS Loperamide (Loperamide Hcl) 2 Mg Tablet 2 Mg PO PRN Q4HRS PRN MDD 16mg Keppra (Levetiracetam) 500 Mg Tablet 500 Mg PO BID Ferrous Sulfate 325 Mg Tablet 325 Mg PO DAILY Neurontin (Gabapentin) 300 Mg Capsule 300 Mg PO BID Voltaren (Diclofenac Sodium) 100 Gm Gel..gram. 4 Sam TP PRN QID PRN Budesonide 0.5 Mg/2 Ml Ampul.neb 0.5 Mg NEB RTBID Dicyclomine Hcl 10 Mg Capsule 10 Mg PO PRN Q8HRS PRN Artificial Tears Eye Drops (Dextran 70/Hypromellose) 15 Ml Drops 1 Drop OU TID PRN Anusol-Hc (Hydrocortisone Acetate) 25 Mg Supp.rect 25 Mg RC PRN Q12HR PRN Norvasc (Amlodipine Besylate) 10 Mg Tablet 10 Mg PO DAILY Tylenol (Acetaminophen) 325 Mg Tablet 650 Mg PO PRN Q6HRS PRN Max acetaminophen dose os 4000mg/24hrs from all sources Albuterol Sulfate Neb Soln (Albuterol Sulfate) 2.5 Mg/3 Ml Vial.neb 2.5 Mg NEB PRN Q4HRS PRN Milk Of Magnesia (Magnesium Hydroxide) 400 Mg/5 Ml Oral.susp 2,400 Mg PO PRN QHS PRN Actos (Pioglitazone Hcl) 15 Mg Tablet 15 Mg PO DAILY I have reviewed the current psychotropics carefully including drug interactions. Risk benefit ratio favors no change other than as noted in my dictated progress note. Diagnosis: Problems: (1) Anxiety disorder (2) Impulse control disorder (3) Major depressive disorder, recurrent episode (4) Mild cognitive impairment BEA SAWANT MD Oct 07, 2018 08:13
[2018-10-07] MEDS: PIOGLITAZONE 15 MG TABLET. PO SCH (08:19)
[2018-10-07] MEDS: ASCORBIC ACID 500 MG TABLET PO SCH (08:19)
[2018-10-07] MEDS: OXcarbazepine 150 MG TABLET. PO SCH (08:19)
[2018-10-07] MEDS: LACTOBACILLUS RHAMNOSUS GG 1 CAPSULE. PO SCH (08:19)
[2018-10-07] MEDS: AMOXICILLIN 250 MG CAPSULE PO SCH ×2 (08:19→13:40)
[2018-10-07] MEDS: FERROUS SULFATE 325 MG TABLET. PO SCH (08:19)
[2018-10-07] MEDS: amLODIPine BESYLATE 10 MG TABLET PO SCH (08:19)
[2018-10-07] MEDS: FAMOTIDINE 20 MG TABLET PO SCH (08:19)
[2018-10-07] MEDS: levETIRAcetam 500 MG TABLET PO SCH (08:20)
[2018-10-07] MEDS: GABAPENTIN 300 MG CAPSULE. PO SCH (08:20)
--- NOTE | 2018-10-07 08:30 | NUR ---
Behavior Intervention Response and Plan: BIRP Note: Behavior: Assumed Care of patient, patient located in Day Room at shift change. Patient exhibited the following behavior Restless, Disorganized, Compulsive. Brief assessment on rounds of vital signs, medication needs, lab studies, and pain. Treatment plan problems #1 & 2. Intervention: Patient assessed and the following interventions initiated safety checks 15 Minute Checks Cognitive Assessment , Head to toe Assessment , Medications. Response: After interactions and interventions patient responded in the following manner, Interactive , Disorganized ,Compliant. Continue to assess behaviors and condition will continue to monitor throughout the shift as needed. Patient educated on ADL's, and hand hygiene. Plan: Continue to monitor Master Treatment Plan for patient's progress toward short term goals of Medication Compliance, No harm To self/ others, fci goals to return to previous living setting vs placement. Continue to assess patient for changes in above assessment. Monitor for medication needs, pain, and safety concerns. Hourly rounding performed to ensure safe environment.
[2018-10-07] MEDS: oxyCODONE/APAP 10/325 1 TAB TABLET PO PRN (09:03)
[2018-10-07] MEDS: BUDESONIDE 0.5 MG/2 ML NEBU NEB SCH (09:24)
[2018-10-07] MEDS: CHOLECALCIFEROL (VITAMIN D3) 50,000 UNIT CAPSULE PO SCH (12:45)
--- NOTE | 2018-10-07 16:00 | NUR ---
Transition Record was faxed to follow-up provider with the following elements: Reason for admission, procedures, tests, principal diagnosis, pending studies, patient instructions, 03/05 contact information for unit, phone number to obtain pending test results, plan for follow-up care, physician follow-up, advanced directive information, and medication list with dose, duration and instructions. This information was included in the following documents: History and physical, lab results, study results, progress notes, social work planning form, DC instruction form, patient visit summary, and medication reconciliation form. Date & time record faxed: [phone] 07 October 2018 Record faxed to: Raissa [facility] Record discussed with/ report given to: Raissa Adame called, was told that the nurse would call back for report when he was available.
[2018-10-07 16:44] VITALS: BP 127/75
--- NOTE | 2018-10-07 21:19 | PN ---
DATE: 10/06/2018 PSYCHIATRIC PROGRESS NOTE This late entry 10/06/2018 covers elements not covered in my initial note. SUBJECTIVE: I met with the patient in the evening. The patient slept 8-1/4 hours previous night. She has been somewhat withdrawn, but otherwise social when she is in group. At one point, she was arguing with another demented patient on the unit. REVIEW OF SYSTEMS: Ambulation impaired, in wheelchair. No CV, , pulmonary, eye system symptoms on review. MENTAL STATUS EXAM: Oriented to herself and situation. Speech has some latency, often responses monosyllabic. Abstraction fair, computation impaired, language function intact, attention span short. Mood and affect remain somewhat withdrawn. LABORATORY DATA: Reviewed. IMPRESSION: Bipolar 1 disorder, mixed with psychotic features; cognitive disorder, unspecified. PLAN: No change from initial note. CMP is unremarkable. CBC was not drawn on 10/06/2018, but there is no clinical indication to do this. We may transition to alf in the next day or two. MAN Farrah SAWANT MD DR: MARK/daphne JOB#: [id number] / [id number]
--- NOTE | 2018-10-10 12:45 | DS ---
DATE OF DISCHARGE: 10/07/2018 DISCHARGE SUMMARY/PSYCHIATRIC PROGRESS NOTE This is a late entry 10/07/2018, covers elements not covered in my initial note. REASON FOR ADMISSION: Please refer to the admission history for details. Briefly, the patient is a 72-year-old -[place] female referred back to us from [facility] by her primary care physician on account of threatening staff. She was reportedly yelling, cursing, paranoid, actively hallucinating, delusional. She believed people were plotting against her. She is anxious with decreased appetite, weight loss. She had failed outpatient psychiatric interventions. SIGNIFICANT FINDINGS AND CLINICAL COURSE: Following admission, the patient was seen daily individually by myself, followed medically per Dr. Mcguire. She does have a history of bipolar disorder, was noted to be paranoid, psychotic with ongoing mood swings, but also appeared more confused, specifically for short-term memory. Adjustments were made in her psychotropics. She seemed to respond to a combination of Cymbalta 60 mg at bedtime, Remeron 7.5 mg at bedtime, Trileptal 150 mg a.m. and 300 mg at bedtime, melatonin 3 mg at bedtime. REVIEW OF SYSTEMS: Prior to discharge her on 10/07/2018; ambulation impaired, in wheelchair. No CV, , pulmonary, eye, ENT system symptoms on review. Reliability poor. MENTAL STATUS EXAM: Oriented to herself and situation. Speech has some latency, often responses monosyllabic. Abstraction fair, computation impaired, language function intact, attention span short. Mood and affect withdrawn. LABORATORY DATA: Reviewed. FINAL DIAGNOSES: Bipolar 1 disorder, depressed with psychotic features, in partial remission; cognitive disorder, unspecified; anxiety disorder, unspecified; impulse control disorder, unspecified. Rest unchanged from admission. DISCHARGE MEDICATIONS: Please refer to the [facility]. DISCHARGE INSTRUCTIONS: [facility]. BEA SAWANT MD DR: MARK/daphne JOB#: [id number] / [id number]
== END 2018-10-07 16:00 | DRG 885 ==
LOC: ER 14:58 → GEROPSY 18:43
PROVIDERS: ADMIT Psychiatry & Neurology Psychiatry; ATTEND Psychiatry & Neurology Psychiatry
DX: F25.0 Schizoaffective disorder, bipolar type (principal); F01.51 Vascular dementia, unspecified severity, with behavioral disturbance; F02.81 Dementia in other diseases classified elsewhere, unspecified severity, with behavioral disturbance; I69.359 Hemiplegia and hemiparesis following cerebral infarction affecting unspecified side; N39.0 Urinary tract infection, site not specified; E11.40 Type 2 diabetes mellitus with diabetic neuropathy, unspecified; E11.65 Type 2 diabetes mellitus with hyperglycemia; E66.01 Morbid (severe) obesity due to excess calories; E78.00 Pure hypercholesterolemia, unspecified; E78.5 Hyperlipidemia, unspecified; E86.0 Dehydration; F41.9 Anxiety disorder, unspecified; F63.9 Impulse disorder, unspecified; G30.9 Alzheimer's disease, unspecified; G47.33 Obstructive sleep apnea (adult) (pediatric); I10 Essential (primary) hypertension; J44.9 Chronic obstructive pulmonary disease, unspecified; K21.9 Gastro-esophageal reflux disease without esophagitis; Z96.641 Presence of right artificial hip joint; F32.9 Major depressive disorder, single episode, unspecified; Z88.8 Allergy status to other drugs, medicaments and biological substances; Z79.899 Other long term (current) drug therapy
CPT/HCPCS: 36415; 36600; 70450; 71045; 80053; 80061; 81001; 82306; 82607; 82803; 82947; 83036; 83540; 83550; 83605; 83735; 84436; 84443; 84480; 85007; 85025; 87086; 87186; 93005; 94640; J1815; J7626; 97530; 99285-25